=== PATIENT | female | born 1970 | race Caucasian/White ===

== ENCOUNTER 2016-10-19 15:22 | Inpatient (IN) | payer MEDICARE, MEDICAID ==
[2016-10-19 15:59] LABS: Urine Bilirubin Negative (Negative); Urine Glucose Negative (Negative); Urine Nitrite Negative (Negative)
[2016-10-19 16:26] LABS: Benzodiazepine Urine Screen None Detected (None Detect)
[2016-10-19 16:30] LABS: Hematocrit 38 % (35-47); Hemoglobin 12.7 g/dl (12.0-16.0); Mean Corpuscular HGB Conc 34 g/dl (31-36); Mean Corpuscular Hemoglobin 28 pg (27-31); Mean Corpuscular Volume 84 fL (80-97); Mean Platelet Volume 8 um3 (7.4-10.4); Red Blood Count 4.51 10^6/ul (4.0-5.4); Red Cell Distribution Width 15 % (10.5-15); White Blood Count 9.1 10^3/ul (3.5-10.8)
[2016-10-19 16:49] LABS: ALT 27 U/L (7-52); AST 33 U/L (13-39); Albumin 3.6 g/dL (3.2-5.2); Alkaline Phosphatase 72 U/L (34-104); Anion Gap 4 mmol/L (2-11); BUN/Creatinine Ratio 16.4 (8-20); Blood Urea Nitrogen 10 mg/dL (6-24); CO2 Carbon Dioxide 24 mmol/L (22-32); Calcium 8.5 mg/dL (8.6-10.3); Chloride 109 mmol/L (101-111); EGFR Non-African American 106.5 (>60); Globulin 2.7 g/dL (2-4); Glucose 212 mg/dL (70-100); Potassium 3.5 mmol/L (3.5-5.0); Sodium 137 mmol/L (133-145); Total Protein 6.3 g/dL (6.4-8.9)
[2016-10-19 17:05] LABS: Acetaminophen < 15 mcg/mL; Alcohol < 10 mg/dL (<10); Salicylate < 2.50 mg/dL (<30)
[2016-10-19 17:15] LABS: TSH (Thyroid Stimulating Horm) 0.04 mcIU/mL (0.34-5.60)
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
[2016-10-20] MEDS: traZODone TAB* 100 MG PO SCH ×2 (03:48→21:33)
--- NOTE | 2016-10-20 08:25 | PN ---
Progress Note - Progress Note Note: Psychiatry Discussed case with Grocery Store Associate (Mdehat Escalante) Patient requires admission to first available psychiatric bed. Requested medication reconciliation be done to facilitate a decision on continuing psychiatric meds.
[2016-10-20] MEDS ORDERED: LORazepam TAB(*) 1 MG PO ONE (10:57)
[2016-10-20] MEDS ORDERED: hydrOXYzine HCL TAB* 25 MG PO PRN (10:57)
[2016-10-20] MEDS ORDERED: diPHENhydraMINE PO* 50 MG PO PRN (12:59)
[2016-10-20] MEDS ORDERED: Mouth Piece, Nicotine* 1 EACH CARTRIDGE INH ONE (14:00)
[2016-10-20] MEDS: buPROPion SR TAB.SR* 150 MG PO SCH (16:48)
[2016-10-20] MEDS: Nicotine Inhaler* 10 MG AMP INH PRN (16:49)
[2016-10-20] MEDS: cloNIDine TAB* 0.1 MG PO SCH (21:33)
--- NOTE | 2016-10-21 07:19 | CONSULT ---
Consult Consult: Ms. Trujillo presented to the ED with suicidal thoughts and depression and was medically cleared on a prior shift. She underwent MHE and they felt that she needed hospitalizaton for her safety. I agreed and signed 939 forms. She was admitted in stable condition with a diagnosis of depression with SI.
[2016-10-21] MEDS: cloNIDine TAB* 0.1 MG PO SCH (08:38)
[2016-10-21] MEDS: buPROPion SR TAB.SR* 150 MG PO SCH (08:38)
[2016-10-21] MEDS ORDERED: Sertraline* 100 MG TAB PO SCH (09:00)
[2016-10-21 09:17] VITALS: BP 95/49
[2016-10-21] MEDS: Nicotine Inhaler* 10 MG AMP INH PRN (10:06)
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
--- NOTE | 2016-10-22 02:24 | DS ---
DISCHARGE SUMMARY: DATE OF ADMISSION: 10/20/16 DATE OF DISCHARGE: 10/21/16 DISCHARGE DIAGNOSES: [place] I: Opioid-induced mood disorder, opioid use disorder, cocaine use disorder , cannabis use disorder. [place] II: Deferred. [place] III: Chronic hepatitis C, gastroesophageal reflux disease, bilateral knee osteoarthritis. [place] IV: Severe primary support stressors. [place] V: At the time of admission was 50 and at time of discharge is 60. CONDITION AT THE TIME OF DISCHARGE: Stable. The patient is steadfastly denying any signs of suicidal behavior. Her affect is significantly brighter than I have previously seen it and she is future oriented indicating she would like to be with her family this weekend to be part of her sister's wedding. The patient is agreeable with not only outpatient substance abuse, but also outpatient mental health treatment in the community and followup appointments have been made. The major acute stressor leading to this hospitalization was renewed substance abuse. She is now detoxified from substances and shows no sign of current withdrawal symptoms. She is acknowledging this as an active problem but stating appropriately that she wants to become abstinent again. She is choosing to follow up with the alcohol and drug treatment program and appropriately will be seeking Suboxone maintenance therapy following this experience. We had spoken with her providers at [facility] and they are very much willing to work with her in the future. DISCHARGE INSTRUCTIONS: A. Medications: She is currently takin. Trazodone 300 mg p.o. nightly. 2. Hydroxyzine 50 mg p.o. 4 times a day p.r.n. for anxiety. 3. Benadryl 50 mg as needed at bedtime for insomnia. 4. Bupropion SR 150 mg p.o. daily. 5. Clonidine 0.1 mg p.o. b.i.d. 6. Sertraline 100 mg p.o. daily. B. Diet is regular. C: Activities: As tolerated. The patient is a smoker and she is strongly encouraged to abstain from tobacco usage in the future. However, she is declining use of nicotine replacement products in the outpatient setting indicating her desire at this time to continue smoking cigarettes. HOSPITAL COURSE: Part A: Reason for admission: The patient is a 46-year-old single, white homosexual female with a history of polysubstance abuse as well as PTSD and affective problems who was brought to the emergency room by a friend of hers following an incident where she overdosed on an unknown amount of hydroxyzine. The patient's friend, a woman named Lore, indicated that the patient had taken up to 30 and had endorsed suicidal ideation to her over the phone. The patient steadfastly denies this indicating that she only took approximately 6 of these tablets and she states that her reasoning was that she had a headache and just wanted to go to sleep. She is denying all neurovegetative symptoms of depression at the time of admission and she is denying any thoughts of hurting herself. She is future oriented wanting to attend wedding of her sister this weekend. Part B: Psychiatric treatment rendered: The patient was admitted to the adult behavioral health unit where she was placed on q.30-minute checks for her own safety. We did continue all of her outpatient medications as currently prescribed. The patient was calm and cooperative throughout her stay on the behavioral science unit. I noted almost immediately that her affect appeared to be bright and she was significantly less depressed than she had been during her previous hospitalization here in July 2016. She is telling us that she wants to continue living and would like to continue working on her sobriety. She has formal treatment through the alcohol drug program but wishes to become enrolled in their Suboxone maintenance program. She denies any thoughts of hurting herself or others and is requesting discharge. The patient is domiciled in a section 8 apartment and does have a safe place to go as well as followup arrangements made in the community. We do not feel that she would benefit from further inpatient psychiatric assistance at this time and she is declining any referrals to further inpatient substance abuse rehab. [id number]/[facility] #: [id number] JAYLENE
== END 2016-10-21 15:30 | disposition home or self-care (01) | DRG 897 ==
LOC: ED 15:22 → BSU 10-20 12:58
PROVIDERS: ADMIT Psychiatry & Neurology Psychiatry; ATTEND Psychiatry & Neurology Psychiatry
DX: F11.94 Opioid use, unspecified with opioid-induced mood disorder (principal); B18.2 Chronic viral hepatitis C; F14.90 Cocaine use, unspecified, uncomplicated; F12.90 Cannabis use, unspecified, uncomplicated; K21.9 Gastro-esophageal reflux disease without esophagitis; M17.0 Bilateral primary osteoarthritis of knee; F43.10 Post-traumatic stress disorder, unspecified; Z79.899 Other long term (current) drug therapy; Z88.8 Allergy status to other drugs, medicaments and biological substances; Z81.8 Family history of other mental and behavioral disorders
CPT/HCPCS: 36415; 80053; 80307; 80320; 80329; 81003; 84443; 85025; 93005; 99238; A9270-GY; G0480

== ENCOUNTER 2017-04-03 12:37 | Emergency (ER) | payer MEDICARE, MEDICAID ==
[2017-04-03] MEDS ORDERED: NS 0.9% 1000 ML* 1,000 ML IV ONE (16:11)
[2017-04-03] MEDS ORDERED: methylPREDNISolone 125 MG* 2 ML VIAL IV ONE (16:12)
[2017-04-03] MEDS ORDERED: diPHENhydraMINE IV* 50 MG/ML 1 ml VIAL (BENADRYL) IV ONE (16:12)
[2017-04-03] MEDS ORDERED: Famotidine IV* 10 MG/ML 2 ML (20 mg) IV SLOW PU ONE (16:12)
[2017-04-03 17:31] LABS: Hematocrit 41 % (35-47); Hemoglobin 13.7 g/dl (12.0-16.0); Mean Corpuscular HGB Conc 34 g/dl (31-36); Mean Corpuscular Hemoglobin 29 pg (27-31); Mean Corpuscular Volume 86 fL (80-97); Mean Platelet Volume 9 um3 (7.4-10.4); Red Blood Count 4.73 10^6/ul (4.0-5.4); Red Cell Distribution Width 15 % (10.5-15); White Blood Count 8.5 10^3/ul (3.5-10.8)
[2017-04-03 17:44] LABS: Mono Internal Control QC Line Present
[2017-04-03 17:45] LABS: Albumin 3.7 g/dL (3.2-5.2); BUN/Creatinine Ratio 15.3 (8-20); C Reactive Protein 85.82 mg/L (< 5.00); Calcium 8.6 mg/dL (8.6-10.3); EGFR African American 113.2 (>60); Globulin 2.7 g/dL (2-4); Manual Entry Verification MER0007; Potassium 3.4 mmol/L (3.5-5.0); Total Bilirubin 0.6 mg/dL (0.2-1.0); Total Protein 6.4 g/dL (6.4-8.9)
[2017-04-03 17:53] VITALS: BP 102/57
--- NOTE | 2017-04-03 20:15 | ED ---
I, Oh,Soohyun, scribed for Scott Terry MD on 04/03/17 at 1610 . Skin Complaint - HPI Summary HPI Summary: This 46 y/o female presents to ED for intermittent diffuse hives since a week ago. Cortisone only alleviates hives "for like 5 minutes". Positive fever with reported temperature of 101 F, fatigue, n/v, MADSEN, and general myalgia/ arthralgia. She has been outdoor, but did not notice tick bite. Pt recently started Latuda about a month ago. PMHx includes ADHD, severe anxiety/depression , PTSD, and Hep C. No EtOH consumption. Occasional smoker. - History of Current Complaint Chief Complaint: EDGeneral Time Seen by Provider: 04/03/17 15:41 Stated Complaint: HIVES,FEVER Hx Obtained From: Patient, Medical Records Onset/Duration: Started Weeks Ago, Atraumatic, Still Present Timing: Intermittent Pain Intensity: 7 Pain Scale Used: 0-10 Numeric Skin Location: Diffuse Character: Hives Aggravating Symptom(s): Nothing Alleviating Symptom(s): OTC Creams/Salves - cortisone Associated Signs & Symptoms: Nausea, Vomiting, Fever - Additional Pertinent History Primary Care Physician: [id number] - Allergy/Home Medications Allergies/Adverse Reactions: Allergies Allergy/AdvReac Type Severity Reaction Status Date / Time Omeprazole [From Prilosec] Allergy URINARY Verified 10/20/16 17:15 OBSTRUCTION Tramadol AdvReac Intermediate See Comment Verified 10/20/16 17:15 PMH/Surg Hx/FS Hx/Imm Hx Endocrine/Hematology History: Denies: Hx Diabetes Cardiovascular History: Denies: Hx Hypertension, Hx Pacemaker/ICD Respiratory History: Reports: Hx Asthma, Hx Chronic Bronchitis Musculoskeletal History: Reports: Hx Arthritis, Other Musculoskeletal History - Chronic pain in left foot due to george bite years ago that has caused limp Sensory History: Denies: Hx Hearing Aid Neurological History: Reports: Other Neuro Impairments/Disorders - negative hx of withdrawl or seizure Psychiatric History: Reports: Hx Anxiety, Hx Attention Deficit Hyperactivity Disorder, Hx Depression, Hx Post Traumatic Stress Disorder, Hx Inpatient Treatment, Hx Community Mental Health Tx, Hx Suicide Attempt, Hx Substance Abuse Denies: Hx Eating Disorder, Hx Panic Disorder, Hx Schizophrenia, Hx Bipolar Disorder, Hx of Violent Episodes Against Others, Other Psychiatric Issues/ Disorders Infectious Disease History: No Infectious Disease History: Reports: Hx Hepatitis - Hepatitis C Denies: Traveled Outside the [place] in Last 30 Days - Family History Known Family History: Negative: Cardiac Disease, Diabetes - Social History Alcohol Use: Daily Alcohol Amount: 6-12 beers a day Hx Substance Use: Yes - reports polysubstance self-medication Substance Use Type: Reports: Cocaine, Excessive Caffeine, Marijuana, Synthetic Drugs, Prescribed Substance Use Comment - Amount & Last Used: Pt states, "I use what ever I can get my hands on" Hx Tobacco Use: Yes Smoking Status (MU): Current Every Day Smoker Type: Cigarettes Amount Used/How Often: half a pack a day Have You Smoked in the Last Year: Yes Review of Systems Positive: Fever Positive: Vomiting, Nausea Positive: Arthralgia, Myalgia Positive: Other - diffuse hives Positive: Headache All Other Systems Reviewed And Are Negative: Yes Physical Exam - Summary Physical Exam Summary: The patient is well-nourished in no acute distress and in no acute pain. The skin is warm and dry and skin color reflects adequate perfusion. Diffuse hives upper, lower extremities, face, trunk. HEENT: The head is normocephalic and atraumatic. The pupils are equal and reactive. The conjunctivae are clear and without drainage. Nares are patent and without drainage. Mouth reveals moist mucous membranes and the throat is without erythema and exudate. The external ears are intact. The ear canals are patent and without drainage. The tympanic membranes are intact. Negative swelling or erythema on throat. Neck is supple with full range of motion and non-tender.No nuchal rigitdity Respiratory: Chest is non-tender. Rhonchi and mild wheezing. Lungs are clear to auscultation and breath sounds are symmetrical and equal. Cardiovascular: Hear is regular rate and rhythm. There is no murmur or rub auscultated. There is no peripheral edema and pulses are symmetrical and equal. Abdomen: The abdomen is soft and non-tender. There are normal bowel sounds heard in all four quadrants and there is no organomegaly palpated. Musculoskeletal: There is no back pain noted. Extremities are non-tender with full range of motion. There is no peripheral edema or calf tenderness elicited. No swollen joints. Psychiatric: The patient has an appropriate affect and does not exhibit any anxiety or depression. Triage Information Reviewed: Yes Vital Signs On Initial Exam: Initial Vitals Temp Pulse Resp BP Pulse Ox 97.8 F 96 16 97/62 96 04/03/17 12:40 04/03/17 12:40 04/03/17 12:40 04/03/17 12:40 04/03/17 12:40 Vital Signs Reviewed: Yes - Sahil Coma Scale Coma Scale Total: 15 Diagnostics - Vital Signs Vital Signs Temp Pulse Resp BP Pulse Ox 04/03/17 14:29 100.1 F 70 16 90/54 98 04/03/17 12:40 97.8 F 96 16 97/62 96 - Laboratory Lab Results: Lab Results 04/03/17 04/03/17 04/03/17 Range/Units 17:08 17:08 17:08 WBC 8.5 (3.5-10.8) 10^3/ul RBC 4.73 (4.0-5.4) 10^6/ul Hgb 13.7 (12.0-16.0) g/dl Hct 41 (35-47) % MCV 86 (80-97) fL MCH 29 (27-31) pg MCHC 34 (31-36) g/dl RDW 15 (10.5-15) % Plt Count 181 (150-450) 10^3/ul MPV 9 (7.4-10.4) um3 Neut % (Auto) 67.5 (38-83) % Lymph % (Auto) 21.5 L (25-47) % [place] % (Auto) 10.0 H (1-9) % Eos % (Auto) 0.8 (0-6) % Baso % (Auto) 0.2 (0-2) % Absolute Neuts (auto) 5.8 (1.5-7.7) 10^3/ul Absolute Lymphs (auto) 1.8 (1.0-4.8) 10^3/ul Absolute Monos (auto) 0.9 H (0-0.8) 10^3/ul Absolute Eos (auto) 0.1 (0-0.6) 10^3/ul Absolute Basos (auto) 0 (0-0.2) 10^3/ul Absolute Nucleated RBC 0.02 10^3/ul Nucleated RBC % 0.3 INR (Anticoag Therapy) 1.03 (0.89-1.11) APTT 24.2 L (26.0-36.3) seconds Sodium 135 (133-145) mmol/L Potassium 3.4 L (3.5-5.0) mmol/L Chloride 103 (101-111) mmol/L Carbon Dioxide 23 (22-32) mmol/L Anion Gap 9 (2-11) mmol/L BUN 11 (6-24) mg/dL Creatinine 0.72 (0.51-0.95) mg/dL Est GFR ( Amer) 113.2 (>60) Est GFR (Non-Af Amer) 88.0 (>60) BUN/Creatinine Ratio 15.3 (8-20) Glucose 91 (70-100) mg/dL Lactic Acid (0.5-2.0) mmol/L Calcium 8.6 (8.6-10.3) mg/dL Total Bilirubin 0.60 (0.2-1.0) mg/dL AST 17 (13-39) U/L ALT 9 (7-52) U/L Alkaline Phosphatase 61 (34-104) U/L C-Reactive Protein 85.82 H (< 5.00) mg/L Total Protein 6.4 (6.4-8.9) g/dL Albumin 3.7 (3.2-5.2) g/dL Globulin 2.7 (2-4) g/dL Albumin/Globulin Ratio 1.4 (1-3) Monoscreen Negative (Negative) 04/03/17 Range/Units 17:08 WBC (3.5-10.8) 10^3/ul RBC (4.0-5.4) 10^6/ul Hgb (12.0-16.0) g/dl Hct (35-47) % MCV (80-97) fL MCH (27-31) pg MCHC (31-36) g/dl RDW (10.5-15) % Plt Count (150-450) 10^3/ul MPV (7.4-10.4) um3 Neut % (Auto) (38-83) % Lymph % (Auto) (25-47) % [place] % (Auto) (1-9) % Eos % (Auto) (0-6) % Baso % (Auto) (0-2) % Absolute Neuts (auto) (1.5-7.7) 10^3/ul Absolute Lymphs (auto) (1.0-4.8) 10^3/ul Absolute Monos (auto) (0-0.8) 10^3/ul Absolute Eos (auto) (0-0.6) 10^3/ul Absolute Basos (auto) (0-0.2) 10^3/ul Absolute Nucleated RBC 10^3/ul Nucleated RBC % INR (Anticoag Therapy) (0.89-1.11) APTT (26.0-36.3) seconds Sodium (133-145) mmol/L Potassium (3.5-5.0) mmol/L Chloride (101-111) mmol/L Carbon Dioxide (22-32) mmol/L Anion Gap (2-11) mmol/L BUN (6-24) mg/dL Creatinine (0.51-0.95) mg/dL Est GFR ( Amer) (>60) Est GFR (Non-Af Amer) (>60) BUN/Creatinine Ratio (8-20) Glucose (70-100) mg/dL Lactic Acid 0.6 (0.5-2.0) mmol/L Calcium (8.6-10.3) mg/dL Total Bilirubin (0.2-1.0) mg/dL AST (13-39) U/L ALT (7-52) U/L Alkaline Phosphatase (34-104) U/L C-Reactive Protein (< 5.00) mg/L Total Protein (6.4-8.9) g/dL Albumin (3.2-5.2) g/dL Globulin (2-4) g/dL Albumin/Globulin Ratio (1-3) Monoscreen (Negative) Result Diagrams: 04/03/17 17:08 04/03/17 17:08 Lab Statement: Any lab studies that have been ordered have been reviewed, and results considered in the medical decision making process. Re-Evaluation - Re-Evaluation First Eval Re-Evaluation Time: 18:49 Comment: in room to share lab results with pt. Hard copies of labwork is provided to patient. Plan of care involving discharge is discussed, and pt is agreeable at this moment. Course/Dx - Course Assessment/Plan: This 46 y/o female presents to ED for intermittent hives since a week ago. Pt states that she attempted to control it with cortisone without much success. Positive MADSEN, arthralgia, myalgia, and n/v. Pt states that she was outdoor, but did not notice any tick bite. Blood work is wnl except of elevated CRP of 85.82. Monoscreen is negative. Pt was given benadryl, methylprednisolone , and pepcid in ED, and . Pt is discharged with outpatient f/u with her primary care provider to check on her lyme titer. - Differential Diagnoses - Skin Complaint Differential Diagnoses: Allergic Reaction, Contact Dermatitis, Medication; Adverse Reaction, Tick Born Illness, Urticaria, Other - lyme's disease, dehydration,anxiety - Diagnoses Provider Diagnoses: Urticaria, Myalgia, Arthralgia, Anxiety Discharge - Discharge Plan Condition: Stable Disposition: HOME Prescriptions: Famotidine TAB 40 MG(NF) [Pepcid TAB 40 MG(NF)] 40 mg PO DAILY #30 tab hydrOXYzine HCL TAB* [Atarax 25 MG TAB*] 25 mg PO QID PRN #30 tab PRN Reason: itching predniSONE TAB* [Deltasone TAB*] 60 mg PO DAILY #15 tab Patient Education Materials: Urticaria (ED), Famotidine (By mouth), Hydroxyzine (By mouth), Prednisone (By mouth) Referrals: Jeovany Huang MD [Primary Care Provider] - 2 Days The documentation as recorded by the Marcos lock Soohyun accurately reflects the service I personally performed and the decisions made by me, Scott Terry MD.
== END 2017-04-03 19:01 | disposition home or self-care (01) ==
LOC: ED 12:37
DX: R11.2 Nausea with vomiting, unspecified (principal); R50.9 Fever, unspecified; F17.210 Nicotine dependence, cigarettes, uncomplicated; L50.9 Urticaria, unspecified
CPT/HCPCS: 36415; 80053; 83605; 85025; 85610; 85730; 86140; 86308; 86618; 96374; 99283; J1200; J2930

== ENCOUNTER 2017-04-23 22:10 | Inpatient (IN) | payer MEDICARE, MEDICAID ==
[2017-04-23] MEDS ORDERED: LORazepam TAB(*) 1 MG PO ONE (22:58)
--- NOTE | 2017-04-23 23:29 | ED ---
Psychiatric Complaint - HPI Summary HPI Summary: Pt here w/ feeling "hopeless" since recent heroine use. Reports using 2 grams per day. Typically injects into veins of AC fossas however this has become more difficult d/t scarring. Does not want to inject into hands as it's too painful. Denies injecting in other locations so she snorts the remainder to get her "fix ". Admits to being in/out rehab multiple times, every time with hopes of recovering but eventually relapses. When asked if she's having hearing/seeing things that may not be present, she says "no, I'm not hallucinating" but also reports things are "flying around the room" and uses her hand to wave something away overhead (nothing is there). When asked if she's taken any other drugs today, she admits she drank a Labatt Blue tonight but no other medications or drugs were ingested. She does admit to smoking cigarettes. Asked if she wanted nicotine replacement and she states "I've smoked enough lately". When asked about health issues, states she has taken something for Hep C but doesn't believe she made her f/u appointment as directed. When asked if she lives with someone, states she is in section 8 housing and had a guest stay recently for 3 days which triggered her to become evicted. Reports she has a sober support system. She complains of toe pain - states "I feel my pulse in my toes". Admits to george bite 10 years ago with pain since. Tells me she's not slept in days and just wants to sleep. Hungry but also nauseous - ate a sandwich and reports it's staying down well. - History Of Current Complaint Chief Complaint: EDMentalHealth Time Seen by Provider: 04/23/17 22:13 Hx Obtained From: Patient - Allergies/Home Medications Allergies/Adverse Reactions: Allergies Allergy/AdvReac Type Severity Reaction Status Date / Time Omeprazole [From Prilosec] Allergy URINARY Verified 10/20/16 17:15 OBSTRUCTION Tramadol AdvReac Intermediate See Comment Verified 10/20/16 17:15 PMH/Surg Hx/FS Hx/Imm Hx Previously Healthy: Yes Endocrine/Hematology History: Reports: Hx Thyroid Disease - h/o thyrotoxicosis Denies: Hx Diabetes Cardiovascular History: Denies: Hx Hypertension, Hx Pacemaker/ICD Respiratory History: Reports: Hx Asthma, Hx Chronic Bronchitis Musculoskeletal History: Reports: Hx Arthritis, Other Musculoskeletal History - Chronic pain in left foot due to george bite years ago that has caused limp Sensory History: Denies: Hx Hearing Aid Neurological History: Reports: Other Neuro Impairments/Disorders - negative hx of withdrawl or seizure Psychiatric History: Reports: Hx Anxiety, Hx Attention Deficit Hyperactivity Disorder, Hx Depression, Hx Post Traumatic Stress Disorder, Hx Inpatient Treatment, Hx Community Mental Health Tx, Hx Suicide Attempt, Hx Substance Abuse - heroine, cocaine Denies: Hx Eating Disorder, Hx Panic Disorder, Hx Schizophrenia, Hx Bipolar Disorder, Hx of Violent Episodes Against Others, Other Psychiatric Issues/ Disorders Infectious Disease History: No Infectious Disease History: Reports: Hx Hepatitis - Hepatitis C Denies: Traveled Outside the [place] in Last 30 Days - Family History Known Family History: Positive: Unknown Negative: Cardiac Disease, Diabetes - Social History Lives: Alone Alcohol Use: Daily Alcohol Amount: 6-12 beers a day Hx Substance Use: Yes - reports polysubstance self-medication Substance Use Type: Reports: Cocaine, Excessive Caffeine, Marijuana, Synthetic Drugs, Prescribed Substance Use Comment - Amount & Last Used: Pt states, "I use what ever I can get my hands on" Hx Tobacco Use: Yes Smoking Status (MU): Current Every Day Smoker Type: Cigarettes Amount Used/How Often: half a pack a day Have You Smoked in the Last Year: Yes Review of Systems Positive: Fatigue - see HPI Eyes: Other - see HPI ENT: Negative Cardiovascular: Negative Respiratory: Negative Positive: Nausea. Negative: Abdominal Pain, Vomiting, Diarrhea Positive: no symptoms reported Musculoskeletal: Negative Skin: Negative Neurological: Other - neuropathy in toes as in HPI Psychological: Other - see HPI All Other Systems Reviewed And Are Negative: Yes Physical Exam Triage Information Reviewed: Yes Vital Signs On Initial Exam: Initial Vitals Temp Pulse Resp BP Pulse Ox 97.5 F 92 18 96/75 97 04/23/17 22:14 04/23/17 22:14 04/23/17 22:14 04/23/17 22:14 04/23/17 22:14 Vital Signs Reviewed: Yes Appearance: Positive: Ill-Appearing - pt is fidgety w/ sporadic movements while sitting in bed - randomly smacks the mattress while speaking, Pain Distress - reports he toes hurt throughout evaluation Skin: Positive: Warm, Dry - no rash, no erythema/fever at injection sites; toes of B/L feet w/ inflammation - no janett edema, no streaking, no fluctuane, no drainage - well perfused Eyes: Positive: Conjunctiva Inflammed - poor eye contact. Negative: Discharge ENT: Positive: Hearing grossly normal Neck: Positive: Supple, Nontender Respiratory/Lung Sounds: Positive: Clear to Auscultation, Breath Sounds Present Cardiovascular: Positive: Normal, RRR, Pulses are Symmetrical in both Upper and Lower Extremities Abdomen Description: Positive: Nontender, No Organomegaly, Soft Bowel Sounds: Positive: Present Musculoskeletal: Positive: Normal, Strength/ROM Intact Neurological: Positive: Sensory/Motor Intact - although pt jerks her body at times, Alert, Oriented to Person Place, Time, CN Intact II-III Psychiatric: Positive: Anxious - but able to converse to some degree and answer questions - swiping at the air at times as though something were overhead; when asked about hurting herself, she deflects with other conversation but does state she feels hopeless Diagnostics - Vital Signs Vital Signs Temp Pulse Resp BP Pulse Ox 04/23/17 22:14 97.5 F 92 18 96/75 97 - Laboratory Result Diagrams: 04/23/17 23:23 04/23/17 23:23 Lab Statement: Any lab studies that have been ordered have been reviewed, and results considered in the medical decision making process. Course/Dx - Course Course Of Treatment: Pt presents to ED w/ use of heroine (and cocaine per nursing report). This is confirmed as well as benzo and cannabis on urine drug screen. Pt reports she's feeling "hopeless", has a h/o substance abuse w/ relapse and recently evicted from residence. She appears to be intoxicated at the moment and/or in a psychotic episode. She rests after taking ativan 1mg. Labs reveal hypokalemia with K at 3. TSH is low but is higher than past levels and her HR is WNL - she is w/o a. fib upon auscultation. H/o mood d/o induced by substances. Discussed w/ Dr. Altamirano and license issuer Truman who has been to evaluate pt. Signed out to Dr. Altamirano at 2:30am. - Differential Dx/Clinical Impression Provider Diagnosis: Suicidal ideations, Cocaine abuse, Benzodiazepine abuse, Heroin abuse Discharge - Discharge Plan Condition: Stable Disposition: OTHER Discharge Disposition Comment: Signed out to Dr. Altamirano at 2:30am
[2017-04-23 23:33] LABS: Hematocrit 41 % (35-47); Hemoglobin 14.1 g/dl (12.0-16.0); Mean Corpuscular HGB Conc 35 g/dl (31-36); Mean Corpuscular Hemoglobin 29 pg (27-31); Mean Corpuscular Volume 82 fL (80-97); Mean Platelet Volume 9 um3 (7.4-10.4); Red Blood Count 4.93 10^6/ul (4.0-5.4); Red Cell Distribution Width 14 % (10.5-15); White Blood Count 8.3 10^3/ul (3.5-10.8)
[2017-04-23 23:49] LABS: ALT 11 U/L (7-52); AST 18 U/L (13-39); Albumin 3.9 g/dL (3.2-5.2); Alkaline Phosphatase 70 U/L (34-104); Anion Gap 7 mmol/L (2-11); BUN/Creatinine Ratio 9.8 (8-20); Blood Urea Nitrogen 8 mg/dL (6-24); CO2 Carbon Dioxide 28 mmol/L (22-32); Calcium 8.8 mg/dL (8.6-10.3); Chloride 103 mmol/L (101-111); EGFR African American 97.4 (>60); EGFR Non-African American 75.7 (>60); Globulin 2.9 g/dL (2-4); Glucose 117 mg/dL (70-100); Sodium 138 mmol/L (133-145); Total Protein 6.8 g/dL (6.4-8.9)
[2017-04-23 23:52] LABS: Acetaminophen < 15 mcg/mL; Alcohol < 10 mg/dL (<10); Salicylate < 2.50 mg/dL (<30)
[2017-04-24 00:03] LABS: TSH (Thyroid Stimulating Horm) 0.24 mcIU/mL (0.34-5.60)
[2017-04-24 02:07] LABS: Urine Bacteria Absent (Absent); Urine Bilirubin Negative (Negative); Urine Glucose Negative (Negative); Urine Nitrite Negative (Negative)
[2017-04-24 02:12] LABS: Benzodiazepine Urine Screen Presumptive Positive (None Detect)
[2017-04-24] MEDS ORDERED: Potassium Chlor TAB* 20 MEQ TAB.ER PO ONE (02:25)
[2017-04-24] MEDS ORDERED: hydrOXYzine HCL TAB* 25 MG PO PRN (07:24)
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
[2017-04-24] MEDS: BuPROPion XL* 150 MG TAB.XL PO SCH (14:31)
[2017-04-24] MEDS: cloNIDine TAB* 0.1 MG PO SCH ×2 (14:31→21:28)
[2017-04-24] MEDS: Meloxicam(NF) 15 MG TAB PO SCH (14:32)
[2017-04-24] MEDS: Famotidine TAB* 20 MG PO SCH (14:32)
[2017-04-24] MEDS: Sertraline* 100 MG TAB PO SCH (14:32)
[2017-04-24] MEDS: predniSONE TAB* 20 MG PO SCH (14:32)
[2017-04-24] MEDS ORDERED: Haloperidol TAB* 5 MG PO ONE (14:57)
[2017-04-24] MEDS ORDERED: LORazepam TAB(*) 1 MG PO ONE (14:57)
[2017-04-24] MEDS ORDERED: diPHENhydraMINE PO* 50 MG PO ONE (14:58)
[2017-04-24] MEDS ORDERED: Methocarbamol TAB* 500 MG PO ONE (15:22)
[2017-04-24] MEDS ORDERED: Ondansetron ODT TAB* 4 MG PO PRN (15:23)
[2017-04-24] MEDS ORDERED: Loperamide CAP* 2 MG PO ONE (15:25)
[2017-04-24] MEDS ORDERED: Ibuprofen TAB* 600 MG PO ONE (15:25)
[2017-04-24] MEDS ORDERED: Loperamide CAP* 2 MG PO PRN (15:26)
[2017-04-24] MEDS: traZODone TAB* 100 MG PO SCH (21:28)
[2017-04-25] MEDS: Ibuprofen TAB* 600 MG PO PRN ×2 (08:09→15:51)
[2017-04-25] MEDS: Meloxicam(NF) 15 MG TAB PO SCH (08:11)
[2017-04-25] MEDS: Sertraline* 100 MG TAB PO SCH (08:11)
[2017-04-25] MEDS: BuPROPion XL* 150 MG TAB.XL PO SCH (08:12)
[2017-04-25] MEDS: predniSONE TAB* 20 MG PO SCH (08:13)
[2017-04-25] MEDS: cloNIDine TAB* 0.1 MG PO SCH ×2 (08:13→20:10)
[2017-04-25] MEDS: Famotidine TAB* 20 MG PO SCH (08:13)
--- NOTE | 2017-04-25 14:31 | PN ---
Subjective - Subjective Service Type: [id number] Hosp care 15 min low complexity Subjective: Patient is very somatic from opioid withdrawal and upset at herself for relapsing. She indicates that she is losing her [address] apartment due to having an unallowed roommate. She declines the offer of inpatient rehab. Patient remains suicidal, stating "I just need to stay here a couple days until these thoughts go away." Objective - Appearance Appearance: Well Developed/Nourished Dysmorphic Features: No Hygiene: Normal Grooming: Well Kept - Behavior Psychomotor Activities: Abnormal-Decreased Exhibits Abnormal Movement: No - Attitude and Relatedness Attitude and Relatedness: Cooperative Eye Contact: Fair - Speech Quality: Unpressured Latencies: Normal Quantity: Appropriate - Mood Patient's Decription of Mood: "Terrible" - Affect Observed Affect: Constricted Affect Consistent with: Dysphoria - Thought Process Patient's Thought Process: Coherent Thought Content: Yes Suicidal Planning, No Passive Wish, No Homicidal Ideation, No Paranoid Ideation - Sensorium Experiencing Hallucinations: No, Sensorium is Clear Type of Hallucinations: Visual: No, Auditory: No, Command: No - Level of Consciousness Level of Consciousness: Alert Orientation: Yes Intact, Yes Orientated to Time, Yes Orientated to Place, Yes Orientated to Person - Impulse Control Impulse Control: Tenuous - Insight and Judgement Insight and Judgement: Fair - Group Participation Particating in Group Activities: No - Medication Management Medication Management Adherence: Yes Assessment - Assessment Merits Inpatient Hospitalization: For Immediate Safety, For Stabilization Inpatient 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 single, homosexual, white female with a well-established history of polysubstance dependence and affective instability, along with numerous past admissions to the [facility] in the setting of drug abuse and suicidality, who presents with SI. Plan - Plan Treatment Plan: Name: EDD LOVING Birthdate: 1970 [id number] The patient has been taken off sertraline by her primary care provider. We will start prn quetiapine for agitation and mood instability. Reassess tomorrow. Continued Medication Management: Different Medication Medications: Current Medications Bupropion HCl (Wellbutrin Xl *) 450 mg PO DAILY [facility] Last Admin: 04/25/17 08:12 Dose: 450 mg Clonidine HCl (Catapres Tab*) 0.1 mg PO BID [facility] Last Admin: 04/25/17 08:13 Dose: 0.1 mg Famotidine (Pepcid Tab*) 40 mg PO DAILY [facility] Last Admin: 04/25/17 08:13 Dose: 40 mg Ibuprofen (Motrin Tab*) 600 mg PO Q6H PRN PRN Reason: PAIN Last Admin: 04/25/17 08:09 Dose: 600 mg Loperamide HCl (Imodium Cap*) 2 mg PO .SEE DIRECTIONS PRN PRN Reason: DIARRHEA Methocarbamol (Robaxin Tab*) 750 mg PO TID PRN PRN Reason: muscle ache / spasm Nicotine (Nicotine Inhaler*) 10 mg INH Q2H PRN PRN Reason: CRAVING Nicotine Polacrilex (Nicotine Gum*) 2 mg PO Q2H PRN PRN Reason: CRAVING Ondansetron HCl (Zofran Odt Tab*) 4 mg PO Q6H PRN PRN Reason: NAUSEA Prednisone (Deltasone Tab*) 60 mg PO DAILY [facility] Last Admin: 04/25/17 08:13 Dose: 60 mg Quetiapine Fumarate (Seroquel Tab*) 100 mg PO Q6H PRN PRN Reason: AGITATION/ANXIETY/INSOMNIA Sertraline HCl (Zoloft*) 100 mg PO DAILY [facility] Last Admin: 04/25/17 08:11 Dose: 100 mg Trazodone HCl (Desyrel Tab*) 300 mg PO BEDTIME [facility] Last Admin: 04/24/17 21:28 Dose: Not Given - Discharge Plan Discharge Plan: Drug/Alcohol Rehab
[2017-04-25] MEDS: Nicotine GUM* 2 MG PO PRN ×2 (15:51→20:09)
[2017-04-25] MEDS: Methocarbamol TAB* 500 MG PO PRN (15:51)
[2017-04-25] MEDS: Nicotine Inhaler* 10 MG AMP INH PRN (15:51)
[2017-04-25] MEDS ORDERED: Mouth Piece, Nicotine* 1 EACH CARTRIDGE ONE (15:53)
[2017-04-25] MEDS: QUEtiapine TAB* 100 MG PO PRN (19:40)
[2017-04-25] MEDS: traZODone TAB* 100 MG PO SCH (20:10)
[2017-04-26 09:06] LABS: HDL Cholesterol 36.5 mg/dL
[2017-04-26] MEDS: predniSONE TAB* 20 MG PO SCH (09:35)
[2017-04-26] MEDS: cloNIDine TAB* 0.1 MG PO SCH ×2 (09:35→20:46)
[2017-04-26] MEDS: Famotidine TAB* 20 MG PO SCH (09:35)
[2017-04-26] MEDS: BuPROPion XL* 150 MG TAB.XL PO SCH (09:35)
[2017-04-26] MEDS: Sertraline* 100 MG TAB PO SCH (09:37)
--- NOTE | 2017-04-26 13:46 | PN ---
Subjective - Subjective Service Type: [id number] Hosp care 15 min low complexity Subjective: The patient remains somatic and in bed, suffering from heroin withdrawal. She states that sertraline is ineffective and she requests a trial of lurasidone, which she reports taking as prescribed by Dr. Teixeira at [facility]. The patient became upset at a female peer yesterday and flung her door open in anger, resulting in the door becoming unhinged. She reports continued suicidal ideation. Objective - Appearance Appearance: Well Developed/Nourished Dysmorphic Features: No Hygiene: Normal Grooming: Disheveled - Behavior Psychomotor Activities: Normal Exhibits Abnormal Movement: No - Attitude and Relatedness Attitude and Relatedness: Withdrawn Eye Contact: Poor - Speech Quality: Unpressured Latencies: Normal Quantity: Appropriate - Mood Patient's Decription of Mood: "Terrible" - Affect Observed Affect: Constricted Affect Consistent with: Dysphoria - Thought Process Patient's Thought Process: Coherent Thought Content: Yes Suicidal Planning, No Passive Wish, No Homicidal Ideation, No Paranoid Ideation - Sensorium Experiencing Hallucinations: No, Sensorium is Clear Type of Hallucinations: Visual: No, Auditory: No, Command: No - Level of Consciousness Level of Consciousness: Alert Orientation: Yes Intact, Yes Orientated to Time, Yes Orientated to Place, Yes Orientated to Person - Impulse Control Impulse Control: Poor - Insight and Judgement Insight and Judgement: Impaired - Group Participation Particating in Group Activities: No - Medication Management Medication Management Adherence: Yes Assessment - Assessment Merits Inpatient Hospitalization: For Immediate Safety, For Stabilization Inpatient 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 single, homosexual, white female with a well-established history of polysubstance dependence and affective instability, along with numerous past admissions to the [facility] in the setting of drug abuse and suicidality, who presents with SI. Plan - Plan Treatment Plan: Name: EDD LOVING Birthdate: 1970 [id number] The patient continues to withdraw from opioids and complain of SI. She has been taken off sertraline by her primary care provider. We will start lurasidone 40mg PO qday for agitation and mood instability. Reassess tomorrow. Continued Medication Management: Continue Outpt Medication Medications: Current Medications Bupropion HCl (Wellbutrin Xl *) 450 mg PO DAILY [facility] Last Admin: 04/26/17 09:35 Dose: 450 mg Clonidine HCl (Catapres Tab*) 0.1 mg PO BID [facility] Last Admin: 04/26/17 09:35 Dose: 0.1 mg Famotidine (Pepcid Tab*) 40 mg PO DAILY [facility] Last Admin: 04/26/17 09:35 Dose: 40 mg Ibuprofen (Motrin Tab*) 600 mg PO Q6H PRN PRN Reason: PAIN Last Admin: 04/25/17 15:51 Dose: 600 mg Loperamide HCl (Imodium Cap*) 2 mg PO .SEE DIRECTIONS PRN PRN Reason: DIARRHEA Lurasidone HCl (Latuda (Nf)) 40 mg PO DAILY [facility] Methocarbamol (Robaxin Tab*) 750 mg PO TID PRN PRN Reason: muscle ache / spasm Last Admin: 04/25/17 15:51 Dose: 750 mg Nicotine (Nicotine Inhaler*) 10 mg INH Q2H PRN PRN Reason: CRAVING Last Admin: 04/25/17 15:51 Dose: 10 mg Nicotine Polacrilex (Nicotine Gum*) 2 mg PO Q2H PRN PRN Reason: CRAVING Last Admin: 04/25/17 20:09 Dose: 2 mg Ondansetron HCl (Zofran Odt Tab*) 4 mg PO Q6H PRN PRN Reason: NAUSEA Last Admin: 04/25/17 15:50 Dose: 4 mg Prednisone (Deltasone Tab*) 60 mg PO DAILY [facility] Last Admin: 04/26/17 09:35 Dose: 60 mg Quetiapine Fumarate (Seroquel Tab*) 100 mg PO Q6H PRN PRN Reason: AGITATION/ANXIETY/INSOMNIA Last Admin: 04/25/17 19:40 Dose: 100 mg Trazodone HCl (Desyrel Tab*) 300 mg PO BEDTIME [facility] Last Admin: 04/25/17 20:10 Dose: 300 mg - Discharge Plan Discharge Plan: Inpatient Hospitalization Lab Results - Lab Results Lab Results: 04/26/17 04/26/17 08:20 08:20 Hemoglobin A1c 5.3 Triglycerides 144 Cholesterol 127 LDL Cholesterol 62 HDL Cholesterol 36.5
[2017-04-26] MEDS: Nicotine GUM* 2 MG PO PRN (16:04)
[2017-04-26] MEDS: Ibuprofen TAB* 600 MG PO PRN (16:04)
[2017-04-26] MEDS: QUEtiapine TAB* 100 MG PO PRN (19:11)
[2017-04-26] MEDS: traZODone TAB* 100 MG PO SCH (20:44)
[2017-04-27] MEDS: LURASIDONE 40 MG PO SCH (08:24)
[2017-04-27] MEDS: Famotidine TAB* 20 MG PO SCH (08:24)
[2017-04-27] MEDS: QUEtiapine TAB* 100 MG PO PRN ×2 (08:24→20:13)
[2017-04-27] MEDS: cloNIDine TAB* 0.1 MG PO SCH ×2 (08:24→20:13)
[2017-04-27] MEDS: BuPROPion XL* 150 MG TAB.XL PO SCH (08:24)
[2017-04-27] MEDS: predniSONE TAB* 20 MG PO SCH (08:25)
[2017-04-27] MEDS: Nicotine GUM* 2 MG PO PRN ×2 (14:35→17:29)
[2017-04-27] MEDS: Ibuprofen TAB* 600 MG PO PRN (14:35)
--- NOTE | 2017-04-27 16:08 | PN ---
Subjective - Subjective Service Type: [id number] Hosp care 15 min low complexity Subjective: Patient reports that the worst of her opioid withdrawal is over and she is more visible on the unit. She declines the offer for inpatient rehab, stating that she has to be out of her apartment by the end of the month and there is nobody to move her belongings if she is inpatient somewhere. She continues to endorse depressed mood and suicidality. "I'm in a dark place. I need a few more days here." She is agreeable with referral to the ACT team. Objective - Appearance Appearance: Well Developed/Nourished Dysmorphic Features: No Hygiene: Normal Grooming: Disheveled - Behavior Psychomotor Activities: Abnormal-Decreased Exhibits Abnormal Movement: No - Attitude and Relatedness Attitude and Relatedness: Withdrawn Eye Contact: Fair - Speech Quality: Unpressured Latencies: Normal Quantity: Appropriate - Mood Patient's Decription of Mood: "Sad" - Affect Observed Affect: Constricted Affect Consistent with: Dysphoria - Thought Process Patient's Thought Process: Coherent Thought Content: Yes Passive Wish, No Suicidal Planning, No Homicidal Ideation, No Paranoid Ideation - Sensorium Experiencing Hallucinations: No, Sensorium is Clear Type of Hallucinations: Visual: No, Auditory: No, Command: No - Level of Consciousness Level of Consciousness: Alert Orientation: Yes Intact, Yes Orientated to Time, Yes Orientated to Place, Yes Orientated to Person - Impulse Control Impulse Control: Tenuous - Insight and Judgement Insight and Judgement: Fair - Group Participation Particating in Group Activities: No - Medication Management Medication Management Adherence: Yes Assessment - Assessment Merits Inpatient Hospitalization: For Immediate Safety, For Stabilization Inpatient 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 single, homosexual, white female with a well-established history of polysubstance dependence and affective instability, along with numerous past admissions to the [facility] in the setting of drug abuse and suicidality, who presents with SI. Plan - Plan Treatment Plan: Name: EDD LOVING Birthdate: 1970 [id number] The patient continues to complain of depression and SI. We have started lurasidone 40mg PO qday for agitation and mood instability. Patient to be referred to ACT team and ADC. Target d/c for Tuesday, (8/18). Continued Medication Management: Start Medication Medications: Current Medications Bupropion HCl (Wellbutrin Xl *) 450 mg PO DAILY [facility] Last Admin: 04/27/17 08:24 Dose: 450 mg Clonidine HCl (Catapres Tab*) 0.1 mg PO BID [facility] Last Admin: 04/27/17 08:24 Dose: 0.1 mg Famotidine (Pepcid Tab*) 40 mg PO DAILY [facility] Last Admin: 04/27/17 08:24 Dose: 40 mg Guaifenesin (Robitussin*) 5 ml PO Q4H PRN PRN Reason: COUGH Ibuprofen (Motrin Tab*) 600 mg PO Q6H PRN PRN Reason: PAIN Last Admin: 04/27/17 14:35 Dose: 600 mg Loperamide HCl (Imodium Cap*) 2 mg PO .SEE DIRECTIONS PRN PRN Reason: DIARRHEA Lurasidone HCl (Latuda (Nf)) 40 mg PO DAILY [facility] Last Admin: 04/27/17 08:24 Dose: 40 mg Methocarbamol (Robaxin Tab*) 750 mg PO TID PRN PRN Reason: muscle ache / spasm Last Admin: 04/25/17 15:51 Dose: 750 mg Nicotine (Nicotine Inhaler*) 10 mg INH Q2H PRN PRN Reason: CRAVING Last Admin: 04/25/17 15:51 Dose: 10 mg Nicotine Polacrilex (Nicotine Gum*) 2 mg PO Q2H PRN PRN Reason: CRAVING Last Admin: 04/27/17 14:35 Dose: 2 mg Ondansetron HCl (Zofran Odt Tab*) 4 mg PO Q6H PRN PRN Reason: NAUSEA Last Admin: 04/25/17 15:50 Dose: 4 mg Prednisone (Deltasone Tab*) 60 mg PO DAILY [facility] Last Admin: 04/27/17 08:25 Dose: 60 mg Quetiapine Fumarate (Seroquel Tab*) 100 mg PO Q6H PRN PRN Reason: AGITATION/ANXIETY/INSOMNIA Last Admin: 04/27/17 08:24 Dose: 100 mg Trazodone HCl (Desyrel Tab*) 300 mg PO BEDTIME [facility] Last Admin: 04/26/17 20:44 Dose: 300 mg - Discharge Plan Discharge Plan: Inpatient Hospitalization
[2017-04-27] MEDS ORDERED: Mouth Piece, Nicotine* 1 EACH CARTRIDGE ONE (16:14)
[2017-04-27] MEDS: Nicotine Inhaler* 10 MG AMP INH PRN (16:15)
[2017-04-27] MEDS: traZODone TAB* 100 MG PO SCH (20:13)
[2017-04-27] MEDS: guaiFENesin LIQ* 100 MG/5 ML UDC PO PRN (20:13)
[2017-04-28] MEDS: BuPROPion XL* 150 MG TAB.XL PO SCH (08:13)
[2017-04-28] MEDS: LURASIDONE 40 MG PO SCH (08:14)
[2017-04-28] MEDS: predniSONE TAB* 20 MG PO SCH (08:14)
[2017-04-28] MEDS: cloNIDine TAB* 0.1 MG PO SCH ×2 (08:14→20:53)
[2017-04-28] MEDS: QUEtiapine TAB* 100 MG PO PRN ×2 (08:15→20:53)
[2017-04-28] MEDS: Famotidine TAB* 20 MG PO SCH (08:15)
[2017-04-28] MEDS: guaiFENesin LIQ* 100 MG/5 ML UDC PO PRN (08:15)
[2017-04-28] MEDS: Ibuprofen TAB* 600 MG PO PRN ×2 (11:44→18:54)
--- NOTE | 2017-04-28 12:54 | PN ---
Subjective - Subjective Service Type: [id number] Hosp care 15 min low complexity Subjective: Patient remains depressed and withdrawn, sleeping in her room during the day and endorsing passive SI without plan. She requests continued inpatient treatment through the weekend. When confronted with lack of participation in milieu activities she agrees to attend more group programming. Patient agreeable with ACT referral. Objective - Appearance Appearance: Well Developed/Nourished Dysmorphic Features: No Hygiene: Normal Grooming: Disheveled - Behavior Psychomotor Activities: Abnormal-Decreased Exhibits Abnormal Movement: No - Attitude and Relatedness Attitude and Relatedness: Withdrawn Eye Contact: Poor - Speech Quality: Unpressured Latencies: Normal Quantity: Terse - Mood Patient's Decription of Mood: "Sad" - Affect Observed Affect: Constricted Affect Consistent with: Dysphoria - Thought Process Patient's Thought Process: Coherent Thought Content: Yes Passive Wish, No Suicidal Planning, No Homicidal Ideation, No Paranoid Ideation - Sensorium Experiencing Hallucinations: No, Sensorium is Clear Type of Hallucinations: Visual: No, Auditory: No, Command: No - Level of Consciousness Level of Consciousness: Alert Orientation: Yes Intact, Yes Orientated to Time, Yes Orientated to Place, Yes Orientated to Person - Impulse Control Impulse Control: Poor - Insight and Judgement Insight and Judgement: Impaired - Group Participation Particating in Group Activities: No - Medication Management Medication Management Adherence: Yes Assessment - Assessment Merits Inpatient Hospitalization: For Immediate Safety, For Stabilization Inpatient 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 single, homosexual, white female with a well-established history of polysubstance dependence and affective instability, along with numerous past admissions to the [facility] in the setting of drug abuse and suicidality, who presents with SI. Plan - Plan Treatment Plan: Name: EDD LOVING Birthdate: 1970 [id number] The patient continues to complain of depression and SI. We have started lurasidone 40mg PO qday for agitation and mood instability. Patient to be referred to ACT team and ADC. Target d/c for Tuesday, (05/02). Continued Medication Management: Start Medication Medications: Current Medications Bupropion HCl (Wellbutrin Xl *) 450 mg PO DAILY [facility] Last Admin: 04/28/17 08:13 Dose: 450 mg Clonidine HCl (Catapres Tab*) 0.1 mg PO BID [facility] Last Admin: 04/28/17 08:14 Dose: 0.1 mg Famotidine (Pepcid Tab*) 40 mg PO DAILY [facility] Last Admin: 04/28/17 08:15 Dose: 40 mg Guaifenesin (Robitussin*) 5 ml PO Q4H PRN PRN Reason: COUGH Last Admin: 04/28/17 08:15 Dose: 5 ml Ibuprofen (Motrin Tab*) 600 mg PO Q6H PRN PRN Reason: PAIN Last Admin: 04/28/17 11:44 Dose: 600 mg Loperamide HCl (Imodium Cap*) 2 mg PO .SEE DIRECTIONS PRN PRN Reason: DIARRHEA Lurasidone HCl (Latuda (Nf)) 40 mg PO DAILY [facility] Last Admin: 04/28/17 08:14 Dose: 40 mg Methocarbamol (Robaxin Tab*) 750 mg PO TID PRN PRN Reason: muscle ache / spasm Last Admin: 04/25/17 15:51 Dose: 750 mg Nicotine (Nicotine Inhaler*) 10 mg INH Q2H PRN PRN Reason: CRAVING Last Admin: 04/27/17 16:15 Dose: 10 mg Nicotine Polacrilex (Nicotine Gum*) 2 mg PO Q2H PRN PRN Reason: CRAVING Last Admin: 04/27/17 17:29 Dose: 2 mg Ondansetron HCl (Zofran Odt Tab*) 4 mg PO Q6H PRN PRN Reason: NAUSEA Last Admin: 04/25/17 15:50 Dose: 4 mg Prednisone (Deltasone Tab*) 60 mg PO DAILY [facility] Last Admin: 04/28/17 08:14 Dose: 60 mg Quetiapine Fumarate (Seroquel Tab*) 100 mg PO Q6H PRN PRN Reason: AGITATION/ANXIETY/INSOMNIA Last Admin: 04/28/17 08:15 Dose: 100 mg Trazodone HCl (Desyrel Tab*) 300 mg PO BEDTIME [facility] Last Admin: 04/27/17 20:13 Dose: 300 mg - Discharge Plan Discharge Plan: Inpatient Hospitalization
[2017-04-28] MEDS: Nicotine GUM* 2 MG PO PRN ×2 (15:23→18:54)
[2017-04-28] MEDS: Docusate CAP* 100 MG PO PRN (15:23)
[2017-04-28] MEDS: Magnesium Hydroxide LIQ* 30 ML UDC PO PRN (15:23)
--- NOTE | 2017-04-28 15:58 | PN ---
[facility]: Group Therapy Note - Service Type Service Type: [id number] Group Psychotherapy - Group Participation Patient Participating in Group: Yes Level of Group Participation: Attentive, Inattentive - left early Relatedness to Group: Defended - irritable
[2017-04-28] MEDS: traZODone TAB* 100 MG PO SCH (20:53)
[2017-04-29] MEDS: predniSONE TAB* 20 MG PO SCH (08:12)
[2017-04-29] MEDS: Magnesium Hydroxide LIQ* 30 ML UDC PO PRN (08:12)
[2017-04-29] MEDS: BuPROPion XL* 150 MG TAB.XL PO SCH (08:12)
[2017-04-29] MEDS: LURASIDONE 40 MG PO SCH (08:13)
[2017-04-29] MEDS: cloNIDine TAB* 0.1 MG PO SCH ×2 (08:14→21:47)
[2017-04-29] MEDS: Docusate CAP* 100 MG PO PRN (08:14)
[2017-04-29] MEDS: Famotidine TAB* 20 MG PO SCH (08:14)
[2017-04-29] MEDS: Ibuprofen TAB* 600 MG PO PRN ×3 (08:14→21:46)
[2017-04-29] MEDS ORDERED: Mouth Piece, Nicotine* 1 EACH CARTRIDGE ONE (12:47)
[2017-04-29] MEDS: Nicotine Inhaler* 10 MG AMP INH PRN ×3 (12:49→21:48)
--- NOTE | 2017-04-29 14:50 | PN ---
Subjective - Subjective Service Type: 28121 Hosp care 15 min low complexity Subjective: Patient appears more social, outgoing and less depressed today. She is making appropriate phone calls to try to secure new housing in the community and she remains agreeable with ACT follow up in the community. She is requesting discharge home for next Tuesday, 05/02. Objective - Appearance Appearance: Well Developed/Nourished Dysmorphic Features: No Hygiene: Normal Grooming: Well Kept - Behavior Psychomotor Activities: Normal Exhibits Abnormal Movement: No - Attitude and Relatedness Attitude and Relatedness: Cooperative Eye Contact: Fair - Speech Quality: Unpressured Latencies: Normal Quantity: Appropriate - Mood Patient's Decription of Mood: "Okay" - Affect Observed Affect: Fair Affect Consistent with: Euthymia - Thought Process Patient's Thought Process: Coherent Thought Content: No Passive Wish, No Suicidal Planning, No Homicidal Ideation, No Paranoid Ideation - Sensorium Experiencing Hallucinations: No, Sensorium is Clear Type of Hallucinations: Visual: No, Auditory: No, Command: No - Level of Consciousness Level of Consciousness: Alert Orientation: Yes Intact, Yes Orientated to Time, Yes Orientated to Place, Yes Orientated to Person - Impulse Control Impulse Control: Tenuous - Insight and Judgement Insight and Judgement: Fair - Group Participation Particating in Group Activities: Yes - Medication Management Medication Management Adherence: Yes Assessment - Assessment Merits Inpatient Hospitalization: Consolidate Improvements, Pending Safe DC Plan Inpatient 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 single, homosexual, white female with a well-established history of polysubstance dependence and affective instability, along with numerous past admissions to the [facility] in the setting of drug abuse and suicidality, who presents with SI. Plan - Plan Treatment Plan: Name: EDD LOVING Birthdate: 1970 [id number] The patient appears to be improving. We have started lurasidone 40mg PO qday for agitation and mood instability. Patient to be referred to ACT team and ADC. Target d/c for Tuesday, (05/02). Continued Medication Management: Different Medication Medications: Current Medications Bupropion HCl (Wellbutrin Xl *) 450 mg PO DAILY [facility] Last Admin: 04/29/17 08:12 Dose: 450 mg Clonidine HCl (Catapres Tab*) 0.1 mg PO BID [facility] Last Admin: 04/29/17 08:14 Dose: 0.1 mg Docusate Sodium (Colace Cap*) 100 mg PO DAILY PRN PRN Reason: CONSTIPATION Last Admin: 04/29/17 08:14 Dose: 100 mg Famotidine (Pepcid Tab*) 40 mg PO DAILY [facility] Last Admin: 04/29/17 08:14 Dose: 40 mg Guaifenesin (Robitussin*) 5 ml PO Q4H PRN PRN Reason: COUGH Last Admin: 04/28/17 08:15 Dose: 5 ml Ibuprofen (Motrin Tab*) 600 mg PO Q6H PRN PRN Reason: PAIN Last Admin: 04/29/17 12:49 Dose: 600 mg Loperamide HCl (Imodium Cap*) 2 mg PO .SEE DIRECTIONS PRN PRN Reason: DIARRHEA Lurasidone HCl (Latuda (Nf)) 40 mg PO DAILY [facility] Last Admin: 04/29/17 08:13 Dose: 40 mg Magnesium Hydroxide (Milk Of Magnesia Liq*) 30 ml PO Q6H PRN PRN Reason: CONSTIPATION Last Admin: 04/29/17 08:12 Dose: 30 ml Methocarbamol (Robaxin Tab*) 750 mg PO TID PRN PRN Reason: muscle ache / spasm Last Admin: 04/25/17 15:51 Dose: 750 mg Nicotine (Nicotine Inhaler*) 10 mg INH Q2H PRN PRN Reason: CRAVING Last Admin: 04/29/17 12:49 Dose: 10 mg Nicotine Polacrilex (Nicotine Gum*) 2 mg PO Q2H PRN PRN Reason: CRAVING Last Admin: 04/28/17 18:54 Dose: 2 mg Ondansetron HCl (Zofran Odt Tab*) 4 mg PO Q6H PRN PRN Reason: NAUSEA Last Admin: 04/25/17 15:50 Dose: 4 mg Prednisone (Deltasone Tab*) 60 mg PO DAILY [facility] Last Admin: 04/29/17 08:12 Dose: 60 mg Quetiapine Fumarate (Seroquel Tab*) 100 mg PO Q6H PRN PRN Reason: AGITATION/ANXIETY/INSOMNIA Last Admin: 04/28/17 20:53 Dose: 100 mg Trazodone HCl (Desyrel Tab*) 300 mg PO BEDTIME [facility] Last Admin: 04/28/17 20:53 Dose: 300 mg - Discharge Plan Discharge Plan: Inpatient Hospitalization
[2017-04-29] MEDS: Nicotine GUM* 2 MG PO PRN ×2 (16:34→21:47)
[2017-04-29] MEDS: traZODone TAB* 100 MG PO SCH (21:46)
[2017-04-29] MEDS: QUEtiapine TAB* 100 MG PO PRN (21:46)
[2017-04-30] MEDS: Ibuprofen TAB* 600 MG PO PRN ×2 (08:34→17:45)
[2017-04-30] MEDS: BuPROPion XL* 150 MG TAB.XL PO SCH (08:34)
[2017-04-30] MEDS: Famotidine TAB* 20 MG PO SCH (08:35)
[2017-04-30] MEDS: cloNIDine TAB* 0.1 MG PO SCH ×2 (08:35→21:55)
[2017-04-30] MEDS: LURASIDONE 40 MG PO SCH (08:35)
[2017-04-30] MEDS: predniSONE TAB* 20 MG PO SCH (08:36)
[2017-04-30] MEDS: Nicotine GUM* 2 MG PO PRN ×2 (10:07→14:12)
[2017-04-30] MEDS: Nicotine Inhaler* 10 MG AMP INH PRN ×3 (10:07→19:56)
[2017-04-30] MEDS: Methocarbamol TAB* 500 MG PO PRN ×2 (14:13→22:06)
[2017-04-30] MEDS: traZODone TAB* 100 MG PO SCH (21:55)
[2017-04-30] MEDS: QUEtiapine TAB* 100 MG PO PRN (21:56)
[2017-05-01] MEDS: Nicotine GUM* 2 MG PO PRN ×2 (08:25→16:53)
[2017-05-01] MEDS: Nicotine Inhaler* 10 MG AMP INH PRN (08:25)
[2017-05-01] MEDS: Ibuprofen TAB* 600 MG PO PRN ×2 (08:25→16:52)
[2017-05-01] MEDS: predniSONE TAB* 20 MG PO SCH (08:26)
[2017-05-01] MEDS: BuPROPion XL* 150 MG TAB.XL PO SCH (08:26)
[2017-05-01] MEDS: cloNIDine TAB* 0.1 MG PO SCH ×2 (08:26→21:38)
[2017-05-01] MEDS: LURASIDONE 40 MG PO SCH (08:26)
[2017-05-01] MEDS: Famotidine TAB* 20 MG PO SCH (08:26)
[2017-05-01] MEDS: Methocarbamol TAB* 500 MG PO PRN ×2 (08:29→16:50)
[2017-05-01] MEDS: traZODone TAB* 100 MG PO SCH (21:37)
[2017-05-01] MEDS: QUEtiapine TAB* 100 MG PO PRN (21:37)
[2017-05-02] MEDS: BuPROPion XL* 150 MG TAB.XL PO SCH (09:49)
[2017-05-02] MEDS: cloNIDine TAB* 0.1 MG PO SCH ×2 (09:49→21:48)
[2017-05-02] MEDS: Famotidine TAB* 20 MG PO SCH (09:49)
[2017-05-02] MEDS: predniSONE TAB* 20 MG PO SCH (09:50)
[2017-05-02] MEDS: Ibuprofen TAB* 600 MG PO PRN ×2 (09:50→21:48)
[2017-05-02] MEDS: LURASIDONE 40 MG PO SCH (09:50)
[2017-05-02] MEDS: Nicotine GUM* 2 MG PO PRN (09:50)
[2017-05-02] MEDS: Nicotine Inhaler* 10 MG AMP INH PRN (09:51)
[2017-05-02] MEDS: Methocarbamol TAB* 500 MG PO PRN ×2 (09:52→21:48)
--- NOTE | 2017-05-02 10:36 | PN ---
Subjective - Subjective Service Type: [id number] Hosp care 15 min low complexity Subjective: The patient appears dishevelled and dysphoric. She states that she is afraid of relapsing on heroin if she leaves the unit and, although she denies SI here, reports that she will likely become suicidal if discharged. "I need two more days in here, supervised on my meds. I'm not evened out yet." Staff reports that she has been skipping groups and socializing only with selected peers. Objective - Appearance Appearance: Well Developed/Nourished Dysmorphic Features: No Hygiene: Normal Grooming: Well Kept - Behavior Psychomotor Activities: Normal Exhibits Abnormal Movement: No - Attitude and Relatedness Attitude and Relatedness: Cooperative Eye Contact: Fair - Speech Quality: Unpressured Latencies: Normal Quantity: Appropriate - Mood Patient's Decription of Mood: "Irritable" - Affect Observed Affect: Constricted Affect Consistent with: Dysphoria - Thought Process Patient's Thought Process: Coherent Thought Content: Yes Suicidal Planning, No Passive Wish, No Homicidal Ideation, No Paranoid Ideation - Sensorium Experiencing Hallucinations: No, Sensorium is Clear Type of Hallucinations: Visual: No, Auditory: No, Command: No - Level of Consciousness Level of Consciousness: Alert Orientation: Yes Intact, Yes Orientated to Time, Yes Orientated to Place, Yes Orientated to Person - Impulse Control Impulse Control: Tenuous - Insight and Judgement Insight and Judgement: Fair - Group Participation Particating in Group Activities: No - Medication Management Medication Management Adherence: Yes Assessment - Assessment Merits Inpatient Hospitalization: For Immediate Safety, For Stabilization Inpatient 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 single, homosexual, white female with a well-established history of polysubstance dependence and affective instability, along with numerous past admissions to the [facility] in the setting of drug abuse and suicidality, who presents with SI. Plan - Plan Treatment Plan: Name: EDD LOVING Birthdate: 1970 [id number] The patient is still threatening to suicide if discharged. Needs encouragement to participate in group programming. We have started lurasidone 40mg PO qday for agitation and mood instability. Patient to be referred to ACT team and ADC. Target d/c for Tuesday, (05/04). Continued Medication Management: Different Medication Medications: Current Medications Bupropion HCl (Wellbutrin Xl *) 450 mg PO DAILY [facility] Last Admin: 05/02/17 09:49 Dose: 450 mg Clonidine HCl (Catapres Tab*) 0.1 mg PO BID [facility] Last Admin: 05/02/17 09:49 Dose: 0.1 mg Docusate Sodium (Colace Cap*) 100 mg PO DAILY PRN PRN Reason: CONSTIPATION Last Admin: 04/29/17 08:14 Dose: 100 mg Famotidine (Pepcid Tab*) 40 mg PO DAILY [facility] Last Admin: 05/02/17 09:49 Dose: 40 mg Guaifenesin (Robitussin*) 5 ml PO Q4H PRN PRN Reason: COUGH Last Admin: 04/28/17 08:15 Dose: 5 ml Ibuprofen (Motrin Tab*) 600 mg PO Q6H PRN PRN Reason: PAIN Last Admin: 05/02/17 09:50 Dose: 600 mg Loperamide HCl (Imodium Cap*) 2 mg PO .SEE DIRECTIONS PRN PRN Reason: DIARRHEA Loratadine (Claritin Tab(Nf)) 10 mg PO DAILY [facility] Lurasidone HCl (Latuda (Nf)) 40 mg PO DAILY [facility] Last Admin: 05/02/17 09:50 Dose: 40 mg Magnesium Hydroxide (Milk Of Magnesia Liq*) 30 ml PO Q6H PRN PRN Reason: CONSTIPATION Last Admin: 04/29/17 08:12 Dose: 30 ml Methocarbamol (Robaxin Tab*) 750 mg PO TID PRN PRN Reason: muscle ache / spasm Last Admin: 05/02/17 09:52 Dose: 750 mg Nicotine (Nicotine Inhaler*) 10 mg INH Q2H PRN PRN Reason: CRAVING Last Admin: 05/02/17 09:51 Dose: 10 mg Nicotine Polacrilex (Nicotine Gum*) 2 mg PO Q2H PRN PRN Reason: CRAVING Last Admin: 05/02/17 09:50 Dose: 2 mg Ondansetron HCl (Zofran Odt Tab*) 4 mg PO Q6H PRN PRN Reason: NAUSEA Last Admin: 04/25/17 15:50 Dose: 4 mg Prednisone (Deltasone Tab*) 60 mg PO DAILY [facility] Last Admin: 05/02/17 09:50 Dose: 60 mg Quetiapine Fumarate (Seroquel Tab*) 100 mg PO Q6H PRN PRN Reason: AGITATION/ANXIETY/INSOMNIA Last Admin: 05/01/17 21:37 Dose: 100 mg Trazodone HCl (Desyrel Tab*) 300 mg PO BEDTIME [facility] Last Admin: 05/01/17 21:37 Dose: 300 mg - Discharge Plan Discharge Plan: Inpatient Hospitalization
[2017-05-02] MEDS: Cetirizine* 10 MG TAB PO SCH (11:22)
[2017-05-02] MEDS: Montelukast Sodium TAB* 10 MG PO SCH (11:22)
[2017-05-02] MEDS: traZODone TAB* 100 MG PO SCH (21:48)
[2017-05-02] MEDS: QUEtiapine TAB* 100 MG PO PRN (21:48)
[2017-05-03] MEDS: BuPROPion XL* 150 MG TAB.XL PO SCH (09:52)
[2017-05-03] MEDS: cloNIDine TAB* 0.1 MG PO SCH ×2 (09:52→21:30)
[2017-05-03] MEDS: predniSONE TAB* 20 MG PO SCH (09:52)
[2017-05-03] MEDS: LURASIDONE 40 MG PO SCH (09:53)
[2017-05-03] MEDS: Cetirizine* 10 MG TAB PO SCH (09:53)
[2017-05-03] MEDS: Famotidine TAB* 20 MG PO SCH (09:53)
[2017-05-03] MEDS: Montelukast Sodium TAB* 10 MG PO SCH (09:53)
--- NOTE | 2017-05-03 11:09 | PN ---
Subjective - Subjective Service Type: [id number] Hosp care 15 min low complexity Subjective: Patient out of room, going to groups, social, future oriented. Requesting d/c tomorrow. Will get help moving apartments from outpatient case monitor, Kalli Mortensen, through [facility] Care Coordination. Will have intake meeting with ACT staff here on unit this afternoon. Denies SI. Objective - Appearance Appearance: Well Developed/Nourished Dysmorphic Features: No Hygiene: Normal Grooming: Well Kept - Behavior Psychomotor Activities: Normal Exhibits Abnormal Movement: No - Attitude and Relatedness Attitude and Relatedness: Cooperative Eye Contact: Good - Speech Quality: Unpressured Latencies: Normal Quantity: Appropriate - Mood Patient's Decription of Mood: "Good" - Affect Observed Affect: Fair Affect Consistent with: Euthymia - Thought Process Patient's Thought Process: Coherent Thought Content: No Passive Wish, No Suicidal Planning, No Homicidal Ideation, No Paranoid Ideation - Sensorium Experiencing Hallucinations: No, Sensorium is Clear Type of Hallucinations: Visual: No, Auditory: No, Command: No - Level of Consciousness Level of Consciousness: Alert Orientation: Yes Intact, Yes Orientated to Time, Yes Orientated to Place, Yes Orientated to Person - Impulse Control Impulse Control: Tenuous - Insight and Judgement Insight and Judgement: Fair - Group Participation Particating in Group Activities: Yes - Medication Management Medication Management Adherence: Yes Assessment - Assessment Merits Inpatient Hospitalization: Consolidate Improvements, Pending Safe DC Plan Inpatient 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 single, homosexual, white female with a well-established history of polysubstance dependence and affective instability, along with numerous past admissions to the [facility] in the setting of drug abuse and suicidality, who presents with SI. Plan - Plan Treatment Plan: Name: EDD LOVING Birthdate: 1970 [id number] The patient denies SI. We have started lurasidone 40mg PO qday for agitation and mood instability. Patient to be referred to ACT team and ADC. Target d/c for tomorrow, Tuesday, (05/04). Continued Medication Management: Different Medication Medications: Current Medications Bupropion HCl (Wellbutrin Xl *) 450 mg PO DAILY [facility] Last Admin: 05/03/17 09:52 Dose: 450 mg Cetirizine HCl (Zyrtec*) 10 mg PO DAILY [facility] Last Admin: 05/03/17 09:53 Dose: 10 mg Clonidine HCl (Catapres Tab*) 0.1 mg PO BID [facility] Last Admin: 05/03/17 09:52 Dose: Not Given Docusate Sodium (Colace Cap*) 100 mg PO DAILY PRN PRN Reason: CONSTIPATION Last Admin: 04/29/17 08:14 Dose: 100 mg Famotidine (Pepcid Tab*) 40 mg PO DAILY [facility] Last Admin: 05/03/17 09:53 Dose: 40 mg Guaifenesin (Robitussin*) 5 ml PO Q4H PRN PRN Reason: COUGH Last Admin: 04/28/17 08:15 Dose: 5 ml Ibuprofen (Motrin Tab*) 600 mg PO Q6H PRN PRN Reason: PAIN Last Admin: 05/02/17 21:48 Dose: 600 mg Loperamide HCl (Imodium Cap*) 2 mg PO .SEE DIRECTIONS PRN PRN Reason: DIARRHEA Lurasidone HCl (Latuda (Nf)) 40 mg PO DAILY [facility] Last Admin: 05/03/17 09:53 Dose: 40 mg Magnesium Hydroxide (Milk Of Magnesia Liq*) 30 ml PO Q6H PRN PRN Reason: CONSTIPATION Last Admin: 04/29/17 08:12 Dose: 30 ml Methocarbamol (Robaxin Tab*) 750 mg PO TID PRN PRN Reason: muscle ache / spasm Last Admin: 05/02/17 21:48 Dose: 750 mg Montelukast Sodium (Singulair Tab*) 10 mg PO DAILY [facility] Last Admin: 05/03/17 09:53 Dose: 10 mg Nicotine (Nicotine Inhaler*) 10 mg INH Q2H PRN PRN Reason: CRAVING Last Admin: 05/02/17 09:51 Dose: 10 mg Nicotine Polacrilex (Nicotine Gum*) 2 mg PO Q2H PRN PRN Reason: CRAVING Last Admin: 05/02/17 09:50 Dose: 2 mg Ondansetron HCl (Zofran Odt Tab*) 4 mg PO Q6H PRN PRN Reason: NAUSEA Last Admin: 04/25/17 15:50 Dose: 4 mg Prednisone (Deltasone Tab*) 60 mg PO DAILY [facility] Last Admin: 05/03/17 09:52 Dose: 60 mg Quetiapine Fumarate (Seroquel Tab*) 100 mg PO Q6H PRN PRN Reason: AGITATION/ANXIETY/INSOMNIA Last Admin: 05/02/17 21:48 Dose: 100 mg Trazodone HCl (Desyrel Tab*) 300 mg PO BEDTIME [facility] Last Admin: 05/02/17 21:48 Dose: 300 mg - Discharge Plan Discharge Plan: Outpatient Follow Up Outpatient Program: ACT team
--- NOTE | 2017-05-03 11:26 | PN ---
[facility]: Group Therapy Note - Service Type Service Type: [id number] Group Psychotherapy - Cognitive Behavioral Group Therapy ( CBT):Patient was attentive and participatory in CBT programming this morning, and remained in good behavioral control. Patient expressed positive insights regarding relevant treatment interventions and goals.
[2017-05-03] MEDS: Magnesium Hydroxide LIQ* 30 ML UDC PO PRN (12:29)
[2017-05-03] MEDS: Docusate CAP* 100 MG PO PRN (12:29)
[2017-05-03] MEDS: Nicotine GUM* 2 MG PO PRN (12:30)
[2017-05-03] MEDS: Methocarbamol TAB* 500 MG PO PRN (17:48)
[2017-05-03] MEDS: traZODone TAB* 100 MG PO SCH (21:30)
[2017-05-03] MEDS: QUEtiapine TAB* 100 MG PO PRN (21:41)
[2017-05-04 08:16] VITALS: BP 87/51
[2017-05-04] MEDS: Cetirizine* 10 MG TAB PO SCH (09:30)
[2017-05-04] MEDS: Montelukast Sodium TAB* 10 MG PO SCH (09:30)
[2017-05-04] MEDS: LURASIDONE 40 MG PO SCH (09:30)
[2017-05-04] MEDS: Famotidine TAB* 20 MG PO SCH (09:31)
[2017-05-04] MEDS: predniSONE TAB* 20 MG PO SCH (09:31)
[2017-05-04] MEDS: Ibuprofen TAB* 600 MG PO PRN (09:31)
[2017-05-04] MEDS: BuPROPion XL* 150 MG TAB.XL PO SCH (09:32)
[2017-05-04] MEDS: cloNIDine TAB* 0.1 MG PO SCH (09:32)
--- NOTE | 2017-05-04 10:41 | DCNOTE ---
Subjective - Subjective Service Types: 93745 Hosp [place] Day Mgmt simple under 30 min Discharge Date: 05/04/17 Subjective: Patient euthymic, smiling, eager to return to her apartment in the community with supports such as ACT and [facility] Care Coordination. Patient denies SI and is active with peers and the milieu. Objective - Appearance Appearance: Well Developed/Nourished Dysmorphic Features: No Hygiene: Normal Grooming: Well Kept - Behavior Psychomotor Activities: Normal Exhibits Abnormal Movement: No - Attitude and Relatedness Attitude and Relatedness: Cooperative Eye Contact: Good - Speech Quality: Unpressured Latencies: Normal Quantity: Appropriate - Mood Patient's Decription of Mood: "Good" - Affect Observed Affect: Good Affect Consistent with: Euthymia - Thought Process Patient's Thought Process: Coherent Thought Content: No Passive Wish, No Suicidal Planning, No Homicidal Ideation, No Paranoid Ideation - Sensorium Experiencing Hallucinations: No, Sensorium is Clear Type of Hallucinations: Visual: No, Auditory: No, Command: No - Level of Consciousness Level of Consciousness: Alert Orientation: Yes Intact, Yes Orientated to Time, Yes Orientated to Place, Yes Orientated to Person - Impulse Control Impulse Control: Intact - Insight and Judgement Insight and Judgement: Good - Group Participation Particating in Group Activities: Yes - Medication Management Medication Management Adherence: Yes DC Assessment - Assessment Clinical Impression: 46 y.o. single, homosexual, white female with a well-established history of polysubstance dependence and affective instability, along with numerous past admissions to the [facility] in the setting of drug abuse and suicidality, who presents with SI. 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 Discharge Planning - Discharge Planning Discharge Plan: Outpatient Follow Up Outpatient Program: ACT team Recommendations for Continuing Care: Medication Management, Psychotherapy, Substance Abuse Counseling Medications: Current Medications Bupropion HCl (Wellbutrin Xl *) 450 mg PO DAILY [facility] Last Admin: 05/04/17 09:32 Dose: 450 mg Cetirizine HCl (Zyrtec*) 10 mg PO DAILY [facility] Last Admin: 05/04/17 09:30 Dose: 10 mg Clonidine HCl (Catapres Tab*) 0.1 mg PO BID [facility] Last Admin: 05/04/17 09:32 Dose: 0.1 mg Docusate Sodium (Colace Cap*) 100 mg PO DAILY PRN PRN Reason: CONSTIPATION Last Admin: 05/03/17 12:29 Dose: 100 mg Famotidine (Pepcid Tab*) 40 mg PO DAILY [facility] Last Admin: 05/04/17 09:31 Dose: 40 mg Guaifenesin (Robitussin*) 5 ml PO Q4H PRN PRN Reason: COUGH Last Admin: 04/28/17 08:15 Dose: 5 ml Ibuprofen (Motrin Tab*) 600 mg PO Q6H PRN PRN Reason: PAIN Last Admin: 05/04/17 09:31 Dose: 600 mg Loperamide HCl (Imodium Cap*) 2 mg PO .SEE DIRECTIONS PRN PRN Reason: DIARRHEA Lurasidone HCl (Latuda (Nf)) 40 mg PO DAILY [facility] Last Admin: 05/04/17 09:30 Dose: 40 mg Magnesium Hydroxide (Milk Of Magnesia Liq*) 30 ml PO Q6H PRN PRN Reason: CONSTIPATION Last Admin: 05/03/17 12:29 Dose: 30 ml Methocarbamol (Robaxin Tab*) 750 mg PO TID PRN PRN Reason: muscle ache / spasm Last Admin: 05/03/17 17:48 Dose: 750 mg Montelukast Sodium (Singulair Tab*) 10 mg PO DAILY [facility] Last Admin: 05/04/17 09:30 Dose: 10 mg Nicotine (Nicotine Inhaler*) 10 mg INH Q2H PRN PRN Reason: CRAVING Last Admin: 05/02/17 09:51 Dose: 10 mg Nicotine Polacrilex (Nicotine Gum*) 2 mg PO Q2H PRN PRN Reason: CRAVING Last Admin: 05/03/17 12:30 Dose: 2 mg Ondansetron HCl (Zofran Odt Tab*) 4 mg PO Q6H PRN PRN Reason: NAUSEA Last Admin: 04/25/17 15:50 Dose: 4 mg Prednisone (Deltasone Tab*) 60 mg PO DAILY [facility] Last Admin: 05/04/17 09:31 Dose: 60 mg Quetiapine Fumarate (Seroquel Tab*) 100 mg PO Q6H PRN PRN Reason: AGITATION/ANXIETY/INSOMNIA Last Admin: 05/03/17 21:41 Dose: 100 mg Trazodone HCl (Desyrel Tab*) 300 mg PO BEDTIME [facility] Last Admin: 05/03/17 21:30 Dose: 300 mg Discharge Planning: Prescriptions provided for discharge [] Yes [] No Follow up care details as per social work arrangements. Patient response to discharge plan: [] eager for discharge [] agreeable with discharge plan [] ambivalent about discharge [] disagrees with discharge today
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
== END 2017-05-04 12:45 | disposition home or self-care (01) | DRG 885 ==
LOC: ED 22:10 → BSU 04-24 13:14
PROVIDERS: ADMIT Psychiatry & Neurology Psychiatry; ATTEND Psychiatry & Neurology Psychiatry
PROC: GZHZZZZ Group Psychotherapy (ICD-10-PCS; principal; 2017-04-28)
DX: F33.2 Major depressive disorder, recurrent severe without psychotic features (principal); R45.851 Suicidal ideations; F11.23 Opioid dependence with withdrawal; F41.9 Anxiety disorder, unspecified; G89.29 Other chronic pain; J42 Unspecified chronic bronchitis; J45.909 Unspecified asthma, uncomplicated; F90.9 Attention-deficit hyperactivity disorder, unspecified type; F43.10 Post-traumatic stress disorder, unspecified; B19.20 Unspecified viral hepatitis C without hepatic coma; F17.210 Nicotine dependence, cigarettes, uncomplicated; M17.0 Bilateral primary osteoarthritis of knee; K21.9 Gastro-esophageal reflux disease without esophagitis; Z62.810 Personal history of physical and sexual abuse in childhood; F11.24 Opioid dependence with opioid-induced mood disorder; F14.10 Cocaine abuse, uncomplicated; F12.10 Cannabis abuse, uncomplicated; Z88.6 Allergy status to analgesic agent; Z88.8 Allergy status to other drugs, medicaments and biological substances; Z91.5 Personal history of self-harm; Z72.89 Other problems related to lifestyle
CPT/HCPCS: 36415; 80053; 80061; 80307; 80320; 80329; 81003; 81015; 83036; 84443; 84702; 85025; 87086; 90853; 99222; 99231; 99238; A9270-GY; G0480; J7512

== ENCOUNTER 2017-06-03 22:12 | Emergency (ER) | payer MEDICARE, MEDICAID ==
[2017-06-03] MEDS ORDERED: NS 0.9% 1000 ML* 2,000 ML IV ONE (23:57)
[2017-06-04 00:56] LABS: Hematocrit 40 % (35-47); Hemoglobin 13.2 g/dl (12.0-16.0); Mean Corpuscular HGB Conc 33 g/dl (31-36); Mean Corpuscular Hemoglobin 29 pg (27-31); Mean Corpuscular Volume 87 fL (80-97); Mean Platelet Volume 8 um3 (7.4-10.4); Red Blood Count 4.54 10^6/ul (4.0-5.4); Red Cell Distribution Width 15 % (10.5-15); White Blood Count 13.4 10^3/ul (3.5-10.8)
[2017-06-04 01:07] LABS: ALT 9 U/L (7-52); AST 16 U/L (13-39); Albumin 4.1 g/dL (3.2-5.2); Alkaline Phosphatase 61 U/L (34-104); Anion Gap 8 mmol/L (2-11); BUN/Creatinine Ratio 19.2 (8-20); Blood Urea Nitrogen 15 mg/dL (6-24); CO2 Carbon Dioxide 27 mmol/L (22-32); Calcium 8.7 mg/dL (8.6-10.3); Chloride 104 mmol/L (101-111); EGFR African American 103.2 (>60); EGFR Non-African American 80.2 (>60); Globulin 2.6 g/dL (2-4); Glucose 96 mg/dL (70-100); Potassium 3.7 mmol/L (3.5-5.0); Sodium 139 mmol/L (133-145); Total Protein 6.7 g/dL (6.4-8.9)
--- NOTE | 2017-06-04 01:50 | ED ---
Elmira Rich Rebecca, scribed for Kirby eLe on 06/03/17 at 2244 . Substance Abuse/Use - HPI Summary HPI Summary: Pt is a 46 y/o F BIBA who presents to ED after being found unresponsive by EMS. She was administered Narcan by EMS which resolved sx. Pt reports she used heroin tonight that "was apparently very strong." Denies SIs, CP and SOB. No other drugs were used tonight. - History Of Current Complaint Chief Complaint: EDOverdose Stated Complaint: SUBSTANCE ABUSE Time Seen by Provider: 06/03/17 22:20 Hx Obtained From: Patient Ingestion History: Type/Name Of Drug - Heroin Overdose Characteristics: IV Aggravating Factor(s): Nothing Alleviating Factor(s): Medication - Narcan Associated Signs And Symptoms: Other: - Unresponsive MANAGER APPOINTMENT - resolved - Allergies/Home Medications Allergies/Adverse Reactions: Allergies Allergy/AdvReac Type Severity Reaction Status Date / Time Omeprazole [From Prilosec] Allergy URINARY Verified 10/20/16 17:15 OBSTRUCTION Tramadol AdvReac Intermediate See Comment Verified 10/20/16 17:15 PMH/Surg Hx/FS Hx/Imm Hx Endocrine/Hematology History: Reports: Hx Thyroid Disease - h/o thyrotoxicosis Denies: Hx Diabetes Cardiovascular History: Denies: Hx Hypertension, Hx Pacemaker/ICD Respiratory History: Reports: Hx Asthma, Hx Chronic Bronchitis Musculoskeletal History: Reports: Hx Arthritis, Other Musculoskeletal History - Chronic pain in left foot due to george bite years ago that has caused limp Sensory History: Denies: Hx Contacts or Glasses, Hx Hearing Aid Opthamlomology History: Denies: Hx Contacts or Glasses Neurological History: Reports: Other Neuro Impairments/Disorders - negative hx of withdrawl or seizure Psychiatric History: Reports: Hx Anxiety, Hx Attention Deficit Hyperactivity Disorder, Hx Depression, Hx Post Traumatic Stress Disorder, Hx Inpatient Treatment, Hx Community Mental Health Tx, Hx Suicide Attempt, Hx Substance Abuse - heroine, cocaine Denies: Hx Eating Disorder, Hx Panic Disorder, Hx Schizophrenia, Hx Bipolar Disorder, Hx of Violent Episodes Against Others, Other Psychiatric Issues/ Disorders Infectious Disease History: Yes Infectious Disease History: Reports: Hx Hepatitis - Hepatitis C Denies: Traveled Outside the [place] in Last 30 Days - Family History Known Family History: Negative: Cardiac Disease, Diabetes - Social History Alcohol Use: Occasionally Alcohol Amount: 6-12 beers a day Hx Substance Use: Yes - reports polysubstance self-medication Substance Use Type: Reports: Cocaine, Excessive Caffeine, Marijuana, Synthetic Drugs, Prescribed Substance Use Comment - Amount & Last Used: Pt states, "I use what ever I can get my hands on" Hx Tobacco Use: Yes Smoking Status (MU): Heavy Every Day Tobacco Smoker Type: Cigarettes Amount Used/How Often: half a pack a day in the last 30 days Have You Smoked in the Last Year: Yes Review of Systems Negative: Chest Pain Negative: Shortness Of Breath Neurological: Other - Unresponsive MANAGER APPOINTMENT - resolved Positive: Other - NEGATIVE: SIs All Other Systems Reviewed And Are Negative: Yes Physical Exam - Summary Physical Exam Summary: Appearance: Well appearing, no pain distress Skin: warm, dry, reflects adequate perfusion Head/face: normal Eyes: EOMI, ROBE ENT: normal Neck: supple, nontender Respiratory: CTA, breath sounds present Cardiovascular: RRR, pulses symmetrical Abdomen: nontender, soft Bowel: present Musculoskeletal: normal, strength/ROM intact Neuro: normal, sensory motor intact, A&Ox3 Triage Information Reviewed: Yes Vital Signs On Initial Exam: Initial Vitals BP 96/64 06/03/17 22:26 Vital Signs Reviewed: Yes - Sahil Coma Scale Coma Scale Total: 15 Diagnostics - Vital Signs Vital Signs Temp Pulse Resp BP Pulse Ox 06/03/17 22:31 98.5 F 109 12 113/68 94 06/03/17 22:30 113 9 113/68 91 06/03/17 22:27 119 26 95 06/03/17 22:26 96/64 - Laboratory Result Diagrams: 06/04/17 00:41 06/04/17 00:41 Lab Statement: Any lab studies that have been ordered have been reviewed, and results considered in the medical decision making process. - EKG 0024 Cardiac Rate: NL - 88 bpm EKG Rhythm: Sinus Rhythm EKG Interpretation: No acute changes Course/Dx - Course Assessment/Plan: Pt is a 46 y/o F BIBA who presents to ED after being found unresponsive by EMS. She was administered Narcan by EMS which resolved sx. Pt reports she used heroin tonight that "was apparently very strong." Denies SIs, CP and SOB. No other drugs were used tonight. EKG is sinus rhythm with no acute changes. Blood work reveals troponin of 0.00. In the ED course, pt received fluids. After observation, pt will be D/C to home with Dx of substance abuse and a follow up with her PCP. She understands and agrees. - Diagnoses Provider Diagnoses: Substance abuse Discharge - Discharge Plan Condition: Stable Disposition: HOME Patient Education Materials: Narcotic Abuse (ED) Referrals: Jeovany Huang MD [Primary Care Provider] - 3 Days The documentation as recorded by the Elmira lock Rebecca accurately reflects the service I personally performed and the decisions made by Jesus nice Emmanuel.
[2017-06-04 02:29] VITALS: BP 91/57
== END 2017-06-04 02:10 | disposition home or self-care (01) ==
LOC: ED 22:12
DX: F19.10 Other psychoactive substance abuse, uncomplicated (principal); F17.210 Nicotine dependence, cigarettes, uncomplicated
CPT/HCPCS: 36415; 80053; 84484; 84702; 85025; 85610; 85730; 93005; 96360; 99283

== ENCOUNTER 2017-06-21 12:27 | Emergency (ER) | payer MEDICARE, MEDICAID ==
[2017-06-21 12:35] VITALS: BP 116/75
--- NOTE | 2017-06-21 13:41 | UC ---
Skin Complaint HPI - HPI Summary HPI Summary: FOUR DAYS OF FACIAL SORES AROUND MOUTH AND LEFT SIDE OF FACE WITH REDNESS, CRUSTING AND WEEPING DRAINAGE. FEVER THREE DAYS AGO, NO FEVER PRESENTLY. NO TICK BITES. ONLY ONE LESION ON SIDE OF RIGHT 5TH FINGER, NO LESIONS ANYWHERE ELSE. - History of Current Complaint Chief Complaint: UCRash Time Seen by Provider: 06/21/17 13:18 Stated Complaint: FEVER RASH Hx Obtained From: Patient Onset/Duration: Gradual Onset, Lasting Days, Still Present Skin Exposure Onset/Duration: Days Ago Onset Severity: Mild Current Severity: Moderate Location: Discrete, Face, Hand (Right) Character: Redness, Painful Aggravating Factor(s): Touch Alleviating Factor(s): Nothing Associated Signs & Symptoms: Positive: Fever, Rash, Drainage, Tenderness Related History: Possible Reaction to: Environmental Exposure - Allergy/Home Medications Allergies/Adverse Reactions: Allergies Allergy/AdvReac Type Severity Reaction Status Date / Time Omeprazole [From Prilosec] Allergy URINARY Verified 10/20/16 17:15 OBSTRUCTION Tramadol AdvReac Intermediate See Comment Verified 10/20/16 17:15 Review of Systems Constitutional: Fever Skin: Rash Eyes: Negative ENT: Negative Respiratory: Negative Cardiovascular: Negative Gastrointestinal: Negative Genitourinary: Negative Motor: Negative Neurovascular: Negative Musculoskeletal: Negative Neurological: Negative Psychological: Negative Is Patient Immunocompromised?: No - HAD HEP C; CURED LAST YEAR All Other Systems Reviewed And Are Negative: Yes PMH/Surg Hx/FS Hx/Imm Hx Previously Healthy: Yes - Surgical History Surgical History: None - Family History Known Family History: Positive: None - REVIEWED & NONCONTRIBUTORY, Unknown Negative: Cardiac Disease, Diabetes - Social History Occupation: Employed Full-time Lives: With Family Alcohol Use: Occasionally Alcohol Amount: 6-12 beers a day Substance Use Type: Cocaine, Excessive Caffeine, Marijuana, Synthetic Drugs, Prescribed Substance Use Comment - Amount & Last Used: marijuana currently Smoking Status (MU): Current Every Day Smoker Type: Cigarettes Amount Used/How Often: half a pack a day in the last 30 days Have You Smoked in the Last Year: Yes Household Exposure Type: Cigarettes - Immunization History Most Recent Influenza Vaccination: unknown Most Recent Tetanus Shot: unknown Most Recent Pneumonia Vaccination: 2016 Physical Exam Triage Information Reviewed: Yes Appearance: Well-Appearing, No Pain Distress, Well-Nourished Vital Signs: Initial Vital Signs Temp 97.1 F 10/10/17 12:31 Pulse 95 06/21/17 12:31 Resp 18 06/21/17 12:31 BP 116/75 06/21/17 12:31 Pulse Ox 98 06/21/17 12:31 Vital Signs Reviewed: Yes Eye Exam: Normal ENT Exam: Normal ENT: Positive: Normal ENT inspection Dental Exam: Normal Neck exam: Normal Neck: Positive: Supple, Nontender, No Lymphadenopathy Respiratory Exam: Normal Respiratory: Positive: Chest non-tender, Lungs clear, Normal breath sounds, No respiratory distress, No accessory muscle use Cardiovascular Exam: Normal Cardiovascular: Positive: RRR, No Murmur, Pulses Normal, Brisk Capillary Refill Abdominal Exam: Normal Musculoskeletal Exam: Normal Musculoskeletal: Positive: Strength Intact, ROM Intact Neurological Exam: Normal Psychological Exam: Normal Skin: Positive: rashes - FOUR DAYS OF CRUSTING WEEPING RASH, RIGHT MOUTH AND CHIN. LEFT CHEEK. RIGHT FIFTH FINGER Course/Dx - Differential Diagnoses - Skin Complaint Differential Diagnoses: Cellulitis, Contact Dermatitis, Drug Rash, Eczema, Impetigo, Local Allergic Reaction, Medication; Adverse Reaction, MRSA, Scabies, [place], Systemic Illness, Tick Born Illness, Tinea, Viral Exanthem - Diagnoses Provider Diagnoses: IMPETIGO Discharge - Discharge Plan Condition: Stable Disposition: HOME Prescriptions: Amoxicillin/Clavulanate TAB* [Augmentin TAB 875*] 875 mg PO BID #20 tab Mupirocin 2% OINT* [Bactroban 2 % Oint*] 1 applic TOPICAL BID #1 tube Patient Education Materials: Impetigo (ED) Forms: *Work Release Referrals: Jeovany Huang MD [Primary Care Provider] - Kristyn Tate [Medical Doctor] -
--- NOTE | 2017-06-21 21:50 | UC ---
Progress - Progress Note Progress Note: RESULTS POSITIVE FOR MRSA. ANTIBIOTIC CHANGED FROM AUGMENTIN TO BACTRIM. NURSE INFORMED PATIENT OF NEW DIAGNOSIS AND OF CHANGE IN ANTIBIOTIC REGIMEN.
== END 2017-06-21 13:38 | disposition home or self-care (01) ==
LOC: UCEAST 12:27
DX: L01.00 Impetigo, unspecified (principal); B95.62 Methicillin resistant Staphylococcus aureus infection as the cause of diseases classified elsewhere; R50.9 Fever, unspecified; Z88.8 Allergy status to other drugs, medicaments and biological substances; F12.90 Cannabis use, unspecified, uncomplicated; F17.210 Nicotine dependence, cigarettes, uncomplicated
CPT/HCPCS: 87070; 87077; 87186; 87205; 87640; 87641; 99212; G0463

== ENCOUNTER 2017-08-27 17:57 | Inpatient (IN) | payer MEDICARE, MEDICAID ==
[2017-08-27 18:42] LABS: Urine Bacteria Absent (Absent); Urine Bilirubin Negative (Negative); Urine Glucose Negative (Negative); Urine Nitrite Negative (Negative)
[2017-08-27 18:56] LABS: Benzodiazepine Urine Screen None Detected (None Detect)
--- NOTE | 2017-08-27 19:17 | ED ---
Psychiatric Complaint - HPI Summary HPI Summary: 46F presents with suicidal thoughts today. She states she has stated in her house for past 2 weeks and not left and states that her depressive thoughts have been increasing. She stopped her psych medication for the past two weeks. She states today she developed the thought to cut herself to commit suicide. She states she was about to do so when she remember her mother and called the condominium manager and came here. She has history of cutting. She use cocaine a couple days ago. She denies any other drug or ETOH use. ` - History Of Current Complaint Chief Complaint: EDMentalHealth Time Seen by Provider: 08/27/17 18:15 - Allergies/Home Medications Allergies/Adverse Reactions: Allergies Allergy/AdvReac Type Severity Reaction Status Date / Time Omeprazole [From Prilosec] Allergy Intermediate URINARY Verified 08/27/17 22:24 OBSTRUCTION Tramadol AdvReac Intermediate See Comment Verified 08/27/17 22:24 NICOTINE PATCH AdvReac Unknown Rash Uncoded 08/27/17 22:24 PMH/Surg Hx/FS Hx/Imm Hx Endocrine/Hematology History: Reports: Hx Thyroid Disease - h/o thyrotoxicosis Denies: Hx Diabetes Cardiovascular History: Denies: Hx Hypertension, Hx Pacemaker/ICD Respiratory History: Reports: Hx Asthma, Hx Chronic Bronchitis, Other Respiratory Problems/Disorders - 30 YR SMOKING HX GI History: Reports: Hx Gastroesophageal Reflux Disease Musculoskeletal History: Reports: Hx Arthritis, Hx Tendonitis - LEFT ACHILLES TENDONITIS, WEARS BRACE, MUCH BETTER, Other Musculoskeletal History - Chronic pain in left foot due to george bite years ago that has caused limp Sensory History: Denies: Hx Contacts or Glasses, Hx Hearing Aid Opthamlomology History: Denies: Hx Contacts or Glasses Neurological History: Reports: Other Neuro Impairments/Disorders - negative hx of withdrawl or seizure Psychiatric History: Reports: Hx Anxiety, Hx Attention Deficit Hyperactivity Disorder, Hx Depression, Hx Post Traumatic Stress Disorder, Hx Inpatient Treatment, Hx Community Mental Health Tx, Hx Suicide Attempt, Hx Substance Abuse - heroine, cocaine Denies: Hx Eating Disorder, Hx Panic Disorder, Hx Schizophrenia, Hx Bipolar Disorder, Hx of Violent Episodes Against Others, Other Psychiatric Issues/ Disorders - Surgical History Hx Anesthesia Reactions: No Infectious Disease History: No Infectious Disease History: Reports: Hx Hepatitis - Hepatitis C, Hx of Known/ Suspected MRSA - 06/21/17 ON FACE, DX AT [facility], TOOK ABX, OK NOW Denies: Hx Clostridium Difficile, Hx Human Immunodeficiency Virus (HIV), Traveled Outside the [place] in Last 30 Days - Family History Known Family History: Positive: None - REVIEWED & NONCONTRIBUTORY, Unknown Negative: Cardiac Disease, Diabetes - Social History Alcohol Use: Occasionally Alcohol Amount: 6-12 beers a day Hx Substance Use: Yes - reports polysubstance self-medication Substance Use Type: Reports: Cocaine, Excessive Caffeine, Heroin, Marijuana, Synthetic Drugs, Prescribed Substance Use Comment - Amount & Last Used: marijuana currently Hx Tobacco Use: Yes Smoking Status (MU): Current Every Day Smoker Type: Cigarettes Amount Used/How Often: half a pack a day in the last 30 days Length of Time of Smoking/Using Tobacco: 30 YRS Have You Smoked in the Last Year: Yes Review of Systems Negative: Fever Negative: Chest Pain Negative: Shortness Of Breath Positive: Depressed All Other Systems Reviewed And Are Negative: Yes Physical Exam Triage Information Reviewed: Yes Vital Signs On Initial Exam: Initial Vitals Temp Pulse Resp BP Pulse Ox 98.3 F 75 15 113/77 98 08/27/17 18:09 08/27/17 18:09 08/27/17 18:09 08/27/17 18:09 08/27/17 18:09 Vital Signs Reviewed: Yes Appearance: Positive: Well-Appearing Skin: Positive: Warm, Dry Head/Face: Positive: Normal Head/Face Inspection Eyes: Positive: Normal, Conjunctiva Clear Respiratory/Lung Sounds: Positive: Clear to Auscultation, Breath Sounds Present Cardiovascular: Positive: Normal, RRR Abdomen Description: Positive: Nontender, Soft Bowel Sounds: Positive: Present Musculoskeletal: Positive: Normal Neurological: Positive: Normal Psychiatric: Positive: Depressed - Sahil Coma Scale Coma Scale Total: 15 Diagnostics - Vital Signs Vital Signs Temp Pulse Resp BP Pulse Ox 08/27/17 18:09 98.3 F 75 15 113/77 98 - Laboratory Lab Results: Lab Results 08/27/17 08/27/17 Range/Units 18:20 18:20 Urine Color Yellow Urine Appearance Cloudy Urine pH 5.0 (5-9) Ur Specific [place] 1.024 (1.010-1.030) Urine Protein Negative (Negative) Urine Ketones Negative (Negative) Urine Blood 1+ H (Negative) Urine Nitrate Negative (Negative) Urine Bilirubin Negative (Negative) Urine Urobilinogen Negative (Negative) Ur Leukocyte Esterase Negative (Negative) Urine WBC (Auto) Trace(0-5/hpf) (Absent) Urine RBC (Auto) 1+(3-5/hpf) H (Absent) Ur Squamous Epith Cells Present H (Absent) Urine Bacteria Absent (Absent) Urine Glucose Negative (Negative) Urine Opiates Screen None detected (None Detect) Ur Barbiturates Screen None detected (None Detect) Ur Phencyclidine Scrn None detected (None Detect) Ur Amphetamines Screen None detected (None Detect) U Benzodiazepines Scrn None detected (None Detect) Urine Cocaine Screen Presumptive positive H (None Detect) U Cannabinoids Screen None detected (None Detect) Result Diagrams: 08/27/17 19:07 08/27/17 19:07 Lab Statement: Any lab studies that have been ordered have been reviewed, and results considered in the medical decision making process. Course/Dx - Course Course Of Treatment: 46F presents with suicidal thoughts today. She states she has stated in her house for past 2 weeks and not left and states that her depressive thoughts have been increasing. She states today she developed the thought to cut herself. She states she was about to do so when she remember her mother and called the condominium manager and came here. She has history of cutting. She states she has not been taking her medication for past 2 weeks. She use cocaine a couple days ago. She denies any other drug or ETOH use. labs shows cocaine. medically clear for [facility]. due to being no evaulator will discuss with dr bhatt. dr bhatt is going to admit patient. patient wants to be admitted. - Differential Dx/Clinical Impression Differential Diagnosis/HQI/PQRI: Positive: Anxiety, Depression, Suicidal Ideation Provider Diagnosis: Depression Discharge - Discharge Plan Condition: Stable Disposition: PSYCHIATRIC FACILITY-[facility]
[2017-08-27 19:31] LABS: Hematocrit 39 % (35-47); Hemoglobin 13.3 g/dl (12.0-16.0); Mean Corpuscular HGB Conc 34 g/dl (31-36); Mean Corpuscular Hemoglobin 29 pg (27-31); Mean Corpuscular Volume 84 fL (80-97); Mean Platelet Volume 8 um3 (7.4-10.4); Red Blood Count 4.66 10^6/ul (4.0-5.4); Red Cell Distribution Width 14 % (10.5-15); White Blood Count 8.1 10^3/ul (3.5-10.8)
[2017-08-27 19:33] LABS: Anion Gap 5 mmol/L (2-11); BUN/Creatinine Ratio 14.5 (8-20); Blood Urea Nitrogen 12 mg/dL (6-24); CO2 Carbon Dioxide 25 mmol/L (22-32); Chloride 108 mmol/L (101-111); EGFR Non-African American 74.7 (>60); Glucose 114 mg/dL (70-100); Potassium 3.4 mmol/L (3.5-5.0); Sodium 138 mmol/L (133-145)
[2017-08-27 19:34] LABS: ALT 7 U/L (7-52); AST 11 U/L (13-39); Albumin 3.8 g/dL (3.2-5.2); Alkaline Phosphatase 58 U/L (34-104); Calcium 8.9 mg/dL (8.6-10.3); Globulin 2.6 g/dL (2-4); Total Protein 6.4 g/dL (6.4-8.9)
[2017-08-27 19:57] LABS: Acetaminophen < 15 mcg/mL; Alcohol < 10 mg/dL (<10); Salicylate < 2.50 mg/dL (<30)
[2017-08-27 20:12] LABS: TSH (Thyroid Stimulating Horm) 0.25 mcIU/mL (0.34-5.60)
[2017-08-27 21:46] LABS: Free T4 0.96 ng/dL (0.61-1.12)
[2017-08-27] MEDS ORDERED: traZODone TAB* 100 MG ONE (22:25)
[2017-08-27] MEDS ORDERED: Mouth Piece, Nicotine* 1 EACH CARTRIDGE INH SCH (23:20)
[2017-08-27] MEDS ORDERED: Al Hydrox/Mg Hydrox/Simet LIQ* 30 ML UDC PO PRN (23:20)
[2017-08-28] MEDS: Montelukast Sodium TAB* 10 MG PO SCH (09:23)
[2017-08-28] MEDS: Vitamin THERAPEUTIC TAB PO SCH (09:23)
[2017-08-28] MEDS: Lurasidone(*) 60 MG TAB PO SCH (09:23)
[2017-08-28] MEDS: Cetirizine* 10 MG TAB PO SCH (09:23)
[2017-08-28] MEDS: Acetaminophen TAB* 325 MG PO PRN (09:26)
[2017-08-28] MEDS: Fluticasone NASAL SPRAY 50MCG* 16 gm SPRAY BTL BOTH NARES SCH (12:50)
[2017-08-28] MEDS: BuPROPion XL* 300 MG TAB.XL PO SCH (12:50)
[2017-08-28] MEDS: Venlafaxine EXT RELEASE CAP* 75 MG PO SCH (12:50)
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
[2017-08-28] MEDS: Ibuprofen TAB* 800 MG PO PRN (17:38)
[2017-08-28] MEDS: traZODone TAB* 100 MG PO SCH (20:30)
[2017-08-29] MEDS: Venlafaxine EXT RELEASE CAP* 75 MG PO SCH (08:31)
[2017-08-29] MEDS: Ibuprofen TAB* 800 MG PO PRN ×3 (08:31→20:58)
[2017-08-29] MEDS: Vitamin THERAPEUTIC TAB PO SCH (08:32)
[2017-08-29] MEDS: Montelukast Sodium TAB* 10 MG PO SCH (08:32)
[2017-08-29] MEDS: Cetirizine* 10 MG TAB PO SCH (08:32)
[2017-08-29] MEDS: Lurasidone(*) 60 MG TAB PO SCH (08:32)
[2017-08-29] MEDS: BuPROPion XL* 300 MG TAB.XL PO SCH (08:32)
[2017-08-29] MEDS: Nicotine Inhaler* 10 MG AMP INH PRN (08:32)
[2017-08-29] MEDS: Nicotine GUM* 2 MG PO PRN ×3 (08:32→17:18)
[2017-08-29] MEDS: Fluticasone NASAL SPRAY 50MCG* 16 gm SPRAY BTL BOTH NARES SCH (08:33)
--- NOTE | 2017-08-29 14:04 | PN ---
Subjective - Subjective Date of Service: 08/29/17 Service Type: 79270 Hosp care 15 min low complexity Subjective: Analytics Director met with patient due to assignment for coverage. She presents as dysphoric, cooperative and answers questions fully. She reports depressed mood and daily intrusive thoughts of suicide. She states she has thought of plans to overdose on medications, cut her wrists, and starve to . She endorses loneliness, decreased appetite. She states she tends to relapse on cocaine and marijuana when in a depressive episode. She denies heroin use for a couple months, prior to her knee surgery on 07/11/17. She states that due to recent surgery and need for pain control, she is not interested in use of naltrexone for substance use. She states intent to participate in IOP at [facility] and expects to utilize suboxone treatment. She also wants to be referred to [facility], as she had a positive experience with them in the past. Patient denies current relationship. She states that she is "fine with this." She states she would prefer to be discharged by the end of the week due to plans for [place]. Objective - Appearance Appearance: Well Developed/Nourished Dysmorphic Features: Yes Hygiene: Normal Grooming: Fairly Well Kept - Behavior Psychomotor Activities: Normal Exhibits Abnormal Movement: No - Attitude and Relatedness Attitude and Relatedness: Cooperative Eye Contact: Fair - Speech Quality: Unpressured Latencies: Normal Quantity: Appropriate - Mood Patient's Decription of Mood: "depressed" - Affect Observed Affect: Depressed Affect Consistent with: Dysphoria - Thought Process Patient's Thought Process: Coherent, Goal Directed Thought Content: Yes Passive Wish, Yes Suicidal Planning, No Homicidal Ideation, No Paranoid Ideation - Sensorium Experiencing Hallucinations: No, Sensorium is Clear Type of Hallucinations: Visual: No, Auditory: No, Command: No - Level of Consciousness Level of Consciousness: Alert Orientation: Yes Intact, Yes Orientated to Time, Yes Orientated to Place, Yes Orientated to Person - Impulse Control Impulse Control: Tenuous - Insight and Judgement Insight and Judgement: Fair - Group Participation Particating in Group Activities: Yes - Medication Management Medication Management Adherence: Yes Assessment - Assessment Merits Inpatient Hospitalization: For Immediate Safety, For Stabilization, For Discharge Planning Inpatient DSM-IV Dx: cocaine-induced mood d/o; PTSD by hx; cannabis use d/o; tobacco use d/o; borderline personality d/o Clinical Impression: 46yo white female, single, lives alone. She presented to ED with c/o depressed mood, SI with plans. She had not been actively participating in outpatient treatment or medication adherent. She engaged in cocaine and marijuana use to overcome mental health symptoms. She merits hospitalization for immediate safety and stabilization. Plan - Plan Treatment Plan: Name: EDD LOVING Birthdate: 1970 [id number] continue acute intensive psychiatric treatment. titrate effexor and continue outpatient medications. monitor for mood and thought content. patient denies offer of naltrexone, an FDA-approved medication for alcohol and substance use d/ o. Continued Medication Management: Different Medication Medications: Current Medications Acetaminophen (Tylenol Tab*) 650 mg PO Q4H PRN PRN Reason: PAIN or TEMP > 101 F Last Admin: 08/28/17 09:26 Dose: 650 mg Al Hydrox/Mg Hydrox/Simethicone (Maalox Plus*) 30 ml PO Q4H PRN PRN Reason: INDIGESTION Bupropion HCl (Bupropion Xl*) 300 mg PO DAILY [facility] PRN Reason: Protocol Last Admin: 08/29/17 08:32 Dose: 300 mg Cetirizine HCl (Zyrtec*) 10 mg PO DAILY [facility] Last Admin: 08/29/17 08:32 Dose: 10 mg Device (Nicotine Mouth Piece*) 1 each INH .CARTRIDGE [facility] Last Admin: 08/29/17 08:35 Dose: 1 each Fluticasone Propionate (Flonase Nasal [place] 50mcg*) 2 spray BOTH NARES DAILY [facility] Last Admin: 08/29/17 08:33 Dose: 2 spray Ibuprofen (Motrin Tab*) 600 mg PO Q6H PRN PRN Reason: PAIN Lurasidone HCl (Latuda) 60 mg PO DAILY@1700 [facility] Montelukast Sodium (Singulair Tab*) 10 mg PO DAILY [facility] Last Admin: 08/29/17 08:32 Dose: 10 mg Multivitamins (Theragran Tab*) 1 tab PO DAILY [facility] Last Admin: 08/29/17 08:32 Dose: 1 tab Nicotine (Nicotine Inhaler*) 10 mg INH Q2H PRN PRN Reason: CRAVING Last Admin: 08/29/17 08:32 Dose: 10 mg Nicotine Polacrilex (Nicotine Gum*) 2 mg PO Q2H PRN PRN Reason: CRAVING Last Admin: 08/29/17 08:32 Dose: 2 mg Trazodone HCl (Desyrel Tab*) 300 mg PO BEDTIME [facility] Last Admin: 08/28/17 20:30 Dose: 300 mg Venlafaxine HCl (Effexor Xr Cap*) 75 mg PO DAILY [facility] Last Admin: 08/29/17 08:31 Dose: 75 mg - Discharge Plan Discharge Plan: Outpatient Follow Up Outpatient Program: [facility]
[2017-08-29] MEDS: traZODone TAB* 100 MG PO SCH (20:56)
[2017-08-30] MEDS: Nicotine GUM* 2 MG PO PRN ×3 (07:21→16:22)
[2017-08-30] MEDS: Nicotine Inhaler* 10 MG AMP INH PRN ×4 (07:21→16:22)
[2017-08-30] MEDS: BuPROPion XL* 300 MG TAB.XL PO SCH (08:53)
[2017-08-30] MEDS: Montelukast Sodium TAB* 10 MG PO SCH (08:53)
[2017-08-30] MEDS: Venlafaxine EXT RELEASE CAP* 75 MG PO SCH (08:53)
[2017-08-30] MEDS: Cetirizine* 10 MG TAB PO SCH (08:53)
[2017-08-30] MEDS: Vitamin THERAPEUTIC TAB PO SCH (08:53)
[2017-08-30] MEDS: Fluticasone NASAL SPRAY 50MCG* 16 gm SPRAY BTL BOTH NARES SCH (08:53)
--- NOTE | 2017-08-30 13:26 | PN ---
Subjective - Subjective Date of Service: 08/30/17 Service Type: 84254 Hosp care 15 min low complexity Subjective: Patient has been inconsistent in her reports about substance use. She has been intermittently attending groups and not attending them fully. She is observed to be seclusive to male peer with whom she is friends outside of hospital. Patient was engaging in verbal altercation with another female patient this morning. Head Insulation Board Saw Operator spoke with patient in regards to above and suggested to her to make efforts to be honest with providers and herself, to fully engage in programming and to avoid gossip or negative talk with others. Patient agreed and states "I don't want to be that person." Patient reports motivation to abstain from substances. She states she spoke with drug court rep today and meets daily with her AA sponsor. Objective - Appearance Appearance: Well Developed/Nourished Dysmorphic Features: Yes Hygiene: Normal Grooming: Disheveled - Behavior Psychomotor Activities: Normal Exhibits Abnormal Movement: No - Attitude and Relatedness Attitude and Relatedness: Irritable Eye Contact: Fair - Speech Quality: Unpressured Latencies: Normal Quantity: Appropriate - Mood Patient's Decription of Mood: "Good" - Affect Observed Affect: Good Affect Consistent with: Euthymia - Thought Process Patient's Thought Process: Coherent, Goal Directed Thought Content: Yes Passive Wish, No Suicidal Planning, No Homicidal Ideation, No Paranoid Ideation - Sensorium Experiencing Hallucinations: No, Sensorium is Clear Type of Hallucinations: Visual: No, Auditory: No, Command: No - Level of Consciousness Level of Consciousness: Alert Orientation: Yes Intact, Yes Orientated to Time, Yes Orientated to Place, Yes Orientated to Person - Impulse Control Impulse Control: Tenuous - Insight and Judgement Insight and Judgement: Fair - Group Participation Particating in Group Activities: No - Medication Management Medication Management Adherence: Yes Assessment - Assessment Merits Inpatient Hospitalization: For Immediate Safety, For Stabilization, For Discharge Planning Inpatient DSM-IV Dx: cocaine-induced mood d/o; PTSD by hx; cannabis use d/o; tobacco use d/o; borderline personality d/o Clinical Impression: 46yo white female, single, lives alone. She presented to ED with c/o depressed mood, SI with plans. She had not been actively participating in outpatient treatment or medication adherent. She engaged in cocaine and marijuana use to overcome mental health symptoms. She merits hospitalization for immediate safety and stabilization. Plan - Plan Treatment Plan: Name: EDD LOVING Birthdate: 1970 [id number] continue acute intensive psychiatric treatment. titrate effexor and continue outpatient medications. monitor for mood and thought content. patient denies offer of naltrexone, an FDA-approved medication for alcohol and substance use d/ o. Continued Medication Management: Different Medication Medications: Current Medications Acetaminophen (Tylenol Tab*) 650 mg PO Q4H PRN PRN Reason: PAIN or TEMP > 101 F Last Admin: 08/28/17 09:26 Dose: 650 mg Al Hydrox/Mg Hydrox/Simethicone (Maalox Plus*) 30 ml PO Q4H PRN PRN Reason: INDIGESTION Last Admin: 08/30/17 11:41 Dose: 30 ml Bupropion HCl (Bupropion Xl*) 300 mg PO DAILY [facility] PRN Reason: Protocol Last Admin: 08/30/17 08:53 Dose: 300 mg Cetirizine HCl (Zyrtec*) 10 mg PO DAILY [facility] Last Admin: 08/30/17 08:53 Dose: 10 mg Device (Nicotine Mouth Piece*) 1 each INH .CARTRIDGE [facility] Last Admin: 08/29/17 08:35 Dose: 1 each Fluticasone Propionate (Flonase Nasal [place] 50mcg*) 2 spray BOTH NARES DAILY [facility] Last Admin: 08/30/17 08:53 Dose: 2 spray Ibuprofen (Motrin Tab*) 600 mg PO Q6H PRN PRN Reason: PAIN Last Admin: 08/29/17 20:58 Dose: 600 mg Lurasidone HCl (Latuda) 60 mg PO DAILY@1700 [facility] Montelukast Sodium (Singulair Tab*) 10 mg PO DAILY [facility] Last Admin: 08/30/17 08:53 Dose: 10 mg Multivitamins (Theragran Tab*) 1 tab PO DAILY [facility] Last Admin: 08/30/17 08:53 Dose: 1 tab Nicotine (Nicotine Inhaler*) 10 mg INH Q2H PRN PRN Reason: CRAVING Last Admin: 08/30/17 10:13 Dose: 10 mg Nicotine Polacrilex (Nicotine Gum*) 2 mg PO Q2H PRN PRN Reason: CRAVING Last Admin: 08/30/17 10:13 Dose: 2 mg Trazodone HCl (Desyrel Tab*) 300 mg PO BEDTIME [facility] Last Admin: 08/29/17 20:56 Dose: 300 mg Venlafaxine HCl (Effexor Xr Cap*) 75 mg PO DAILY [facility] Last Admin: 08/30/17 08:53 Dose: 75 mg - Discharge Plan Discharge Plan: Outpatient Follow Up Outpatient Program: [facility]
[2017-08-30] MEDS: Acetaminophen TAB* 325 MG PO PRN (14:02)
[2017-08-30] MEDS: Lurasidone(*) 60 MG TAB PO SCH (16:21)
[2017-08-30] MEDS: traZODone TAB* 100 MG PO SCH ×2 (21:56→23:55)
[2017-08-30] MEDS ORDERED: Ibuprofen TAB* 600 MG ONE (23:54)
[2017-08-30] MEDS: Ibuprofen TAB* 800 MG PO PRN (23:55)
[2017-08-31] MEDS: Venlafaxine EXT RELEASE CAP* 75 MG PO SCH (08:48)
[2017-08-31] MEDS: Montelukast Sodium TAB* 10 MG PO SCH (08:48)
[2017-08-31] MEDS: Cetirizine* 10 MG TAB PO SCH (08:48)
[2017-08-31] MEDS: Vitamin THERAPEUTIC TAB PO SCH (08:48)
[2017-08-31] MEDS: Nicotine GUM* 2 MG PO PRN ×5 (08:48→18:57)
[2017-08-31] MEDS: Nicotine Inhaler* 10 MG AMP INH PRN ×5 (08:48→18:57)
[2017-08-31] MEDS: Ibuprofen TAB* 800 MG PO PRN ×2 (08:49→15:58)
[2017-08-31] MEDS: Fluticasone NASAL SPRAY 50MCG* 16 gm SPRAY BTL BOTH NARES SCH (08:50)
[2017-08-31] MEDS: Acetaminophen TAB* 325 MG PO PRN ×2 (11:12→20:03)
[2017-08-31] MEDS: BuPROPion XL* 300 MG TAB.XL PO SCH (12:19)
[2017-08-31] MEDS: Gabapentin CAP(*) 300 MG PO PRN (15:57)
--- NOTE | 2017-08-31 17:25 | PN ---
Subjective - Subjective Service Type: 34889 Hosp care 15 min low complexity Subjective: Patient was notified of drug court recommendation to be referred to inpatient substance use treatment. She is agreeable and states preference for [facility] in [place]. Patient reports increase in anxiety due to thoughts of going to inpatient substance use treatment and elevated activity on unit. Patient agrees to use of gabapentin and increase in venlafaxine. She denies offer of naltrexone due to past side effect of dizziness. She states she is attending groups and trying to be a positive member of unit. She admits she is easily influenced by negativity. She is also encouraged to use her peer interactions to create a list of distracting techniques/coping skills for anxiety. Objective - Appearance Appearance: Thin Framed Dysmorphic Features: No Hygiene: Normal Grooming: Fairly Well Kept - Behavior Psychomotor Activities: Normal Exhibits Abnormal Movement: No - Attitude and Relatedness Attitude and Relatedness: Cooperative Eye Contact: Good - Speech Quality: Unpressured Latencies: Normal Quantity: Appropriate - Mood Patient's Decription of Mood: "Anxious" - Affect Observed Affect: Good Affect Consistent with: Euthymia - Thought Process Patient's Thought Process: Coherent, Goal Directed Thought Content: No Passive Wish, No Suicidal Planning, No Homicidal Ideation, No Paranoid Ideation - Sensorium Experiencing Hallucinations: No, Sensorium is Clear Type of Hallucinations: Visual: No, Auditory: No, Command: No - Level of Consciousness Level of Consciousness: Alert Orientation: Yes Intact, Yes Orientated to Time, Yes Orientated to Place, Yes Orientated to Person - Impulse Control Impulse Control: Tenuous - Insight and Judgement Insight and Judgement: Good - Group Participation Particating in Group Activities: Yes - Medication Management Medication Management Adherence: Yes Assessment - Assessment Merits Inpatient Hospitalization: For Immediate Safety, For Stabilization, For Discharge Planning, Pending Safe DC Plan Inpatient DSM-IV Dx: cocaine-induced mood d/o; PTSD by hx; cannabis use d/o; tobacco use d/o; borderline personality d/o Clinical Impression: 46yo white female, single, lives alone. She presented to ED with c/o depressed mood, SI with plans. She had not been actively participating in outpatient treatment or medication adherent. She engaged in cocaine and marijuana use to overcome mental health symptoms. She merits hospitalization for immediate safety and stabilization. She is mandated by treatment court to attend inpatient substance use treatment. Plan - Plan Treatment Plan: Name: EDD LOVING Birthdate: 1970 [id number] continue acute intensive psychiatric treatment. titrate effexor and continue outpatient medications. monitor for mood and thought content. patient denies offer of naltrexone, an FDA-approved medication for alcohol and substance use d/ o. Referrals to substance use treatment pending. Continued Medication Management: Different Medication Medications: Current Medications Acetaminophen (Tylenol Tab*) 650 mg PO Q4H PRN PRN Reason: PAIN or TEMP > 101 F Last Admin: 08/31/17 11:12 Dose: 650 mg Al Hydrox/Mg Hydrox/Simethicone (Maalox Plus*) 30 ml PO Q4H PRN PRN Reason: INDIGESTION Last Admin: 08/30/17 11:41 Dose: 30 ml Bupropion HCl (Bupropion Xl*) 300 mg PO DAILY [facility] PRN Reason: Protocol Last Admin: 08/31/17 12:19 Dose: 300 mg Cetirizine HCl (Zyrtec*) 10 mg PO DAILY [facility] Last Admin: 08/31/17 08:48 Dose: 10 mg Device (Nicotine Mouth Piece*) 1 each INH .CARTRIDGE [facility] Last Admin: 08/29/17 08:35 Dose: 1 each Fluticasone Propionate (Flonase Nasal [place] 50mcg*) 2 spray BOTH NARES DAILY [facility] Last Admin: 08/31/17 08:50 Dose: 2 spray Gabapentin (Neurontin Cap(*)) 300 mg PO BID PRN PRN Reason: AGITATION/ANXIETY Last Admin: 08/31/17 15:57 Dose: 300 mg Ibuprofen (Motrin Tab*) 600 mg PO Q6H PRN PRN Reason: PAIN Last Admin: 08/31/17 15:58 Dose: 600 mg Lurasidone HCl (Latuda) 60 mg PO DAILY@1700 [facility] Last Admin: 08/30/17 16:21 Dose: 60 mg Montelukast Sodium (Singulair Tab*) 10 mg PO DAILY [facility] Last Admin: 08/31/17 08:48 Dose: 10 mg Multivitamins (Theragran Tab*) 1 tab PO DAILY [facility] Last Admin: 08/31/17 08:48 Dose: 1 tab Nicotine (Nicotine Inhaler*) 10 mg INH Q2H PRN PRN Reason: CRAVING Last Admin: 08/31/17 16:07 Dose: 10 mg Nicotine Polacrilex (Nicotine Gum*) 2 mg PO Q2H PRN PRN Reason: CRAVING Last Admin: 08/31/17 16:07 Dose: 2 mg Pantoprazole Sodium (Protonix Tab (Nf)) 40 mg PO DAILY@0600 [facility] Trazodone HCl (Desyrel Tab*) 300 mg PO BEDTIME [facility] Last Admin: 08/30/17 23:55 Dose: 300 mg Venlafaxine HCl (Effexor Xr Cap*) 75 mg PO DAILY [facility] Venlafaxine HCl (Effexor Xr Cap*) 37.5 mg PO DAILY [facility] - Discharge Plan Discharge Plan: Drug/Alcohol Rehab
[2017-08-31] MEDS: Lurasidone(*) 60 MG TAB PO SCH (17:30)
[2017-08-31] MEDS: traZODone TAB* 100 MG PO SCH (20:04)
[2017-09-01] MEDS: Nicotine Inhaler* 10 MG AMP INH PRN ×5 (08:24→18:43)
[2017-09-01] MEDS: Gabapentin CAP(*) 300 MG PO PRN ×2 (08:24→21:10)
[2017-09-01] MEDS: Cetirizine* 10 MG TAB PO SCH (08:25)
[2017-09-01] MEDS: Venlafaxine EXT RELEASE CAP* 75 MG PO SCH (08:25)
[2017-09-01] MEDS: Vitamin THERAPEUTIC TAB PO SCH (08:25)
[2017-09-01] MEDS: Montelukast Sodium TAB* 10 MG PO SCH (08:25)
[2017-09-01] MEDS: Venlafaxine EXT RELEASE CAP* 37.5 MG PO SCH (08:25)
[2017-09-01] MEDS: Nicotine GUM* 2 MG PO PRN ×5 (08:25→18:43)
[2017-09-01] MEDS: CMCS: Pantoprazole TAB (NF) 40 MG TAB PO SCH (08:26)
[2017-09-01] MEDS: BuPROPion XL* 300 MG TAB.XL PO SCH (08:27)
[2017-09-01] MEDS: Fluticasone NASAL SPRAY 50MCG* 16 gm SPRAY BTL BOTH NARES SCH (08:28)
[2017-09-01] MEDS ORDERED: Venlafaxine EXT RELEASE CAP* 75 MG PO SCH (09:00)
[2017-09-01] MEDS: Ibuprofen TAB* 600 MG PO PRN ×2 (09:44→16:28)
--- NOTE | 2017-09-01 11:36 | PN ---
MHU: Group Therapy Note - Service Type Service Type: 57170 Group Psychotherapy - Cognitive Behavioral Group Therapy ( CBT):Patient was attentive and participatory in CBT programming this morning, and remained in good behavioral control. Patient expressed positive insights regarding relevant treatment interventions and goals.
[2017-09-01] MEDS: Acetaminophen TAB* 325 MG PO PRN ×2 (14:09→18:45)
--- NOTE | 2017-09-01 14:42 | PN ---
Subjective - Subjective Service Type: 11373 Hosp care 15 min low complexity Subjective: Patient reports some efficacy with use of gabapentin for anxiety and knee pain. She requests increase from BID to TID. Fieldwork Coordinator requested that patient continue to improve her use of coping skills that are not pharmacology based. Parents visited over lunch hour and narrative writer attempted to meet with them. Patient interrupted and requested that her parents not be informed of referral to substance use treatment. Patient has noted to be present in groups and milieu. She spends the majority of free time with select male, with whom she is friends in the community. They are noted to engage in non-productive conversation at times. During groups, she and her friend are appropriate and contribute positively. Objective - Appearance Appearance: Thin Framed Dysmorphic Features: No Hygiene: Normal Grooming: Fairly Well Kept - Behavior Psychomotor Activities: Normal Exhibits Abnormal Movement: No - Attitude and Relatedness Attitude and Relatedness: Cooperative Eye Contact: Good - Speech Quality: Unpressured Latencies: Normal Quantity: Terse - Mood Patient's Decription of Mood: "Anxious" - Affect Observed Affect: Good Affect Consistent with: Euthymia - Thought Process Patient's Thought Process: Coherent, Goal Directed Thought Content: No Passive Wish, No Suicidal Planning, No Homicidal Ideation, No Paranoid Ideation - Sensorium Experiencing Hallucinations: No, Sensorium is Clear Type of Hallucinations: Visual: No, Auditory: No, Command: No - Level of Consciousness Level of Consciousness: Alert Orientation: Yes Intact, Yes Orientated to Time, Yes Orientated to Place, Yes Orientated to Person - Impulse Control Impulse Control: Tenuous - Insight and Judgement Insight and Judgement: Fair - Group Participation Particating in Group Activities: Yes - Medication Management Medication Management Adherence: Yes Assessment - Assessment Merits Inpatient Hospitalization: For Immediate Safety, For Stabilization, Consolidate Improvements Inpatient DSM-IV Dx: cocaine-induced mood d/o; PTSD by hx; cannabis use d/o; tobacco use d/o; borderline personality d/o Clinical Impression: 46yo white female, single, lives alone. She presented to ED with c/o depressed mood, SI with plans. She had not been actively participating in outpatient treatment or medication adherent. She engaged in cocaine and marijuana use to overcome mental health symptoms. She merits hospitalization for immediate safety and stabilization. She is mandated by treatment court to attend inpatient substance use treatment. Plan - Plan Treatment Plan: Name: EDD LOVING Birthdate: 1970 [id number] continue acute intensive psychiatric treatment. titrate effexor and continue outpatient medications. monitor for mood and thought content. patient denies offer of naltrexone, an FDA-approved medication for alcohol and substance use d/ o. Referrals to substance use treatment accepted at [facility] in [place]. Patient to be discharged to [facility] tomorrow. Continued Medication Management: Different Medication Medications: Current Medications Acetaminophen (Tylenol Tab*) 650 mg PO Q4H PRN PRN Reason: PAIN or TEMP > 101 F Last Admin: 09/01/17 14:09 Dose: 650 mg Al Hydrox/Mg Hydrox/Simethicone (Maalox Plus*) 30 ml PO Q4H PRN PRN Reason: INDIGESTION Last Admin: 08/30/17 11:41 Dose: 30 ml Bupropion HCl (Bupropion Xl*) 300 mg PO DAILY [facility] PRN Reason: Protocol Last Admin: 09/01/17 08:27 Dose: 300 mg Cetirizine HCl (Zyrtec*) 10 mg PO DAILY [facility] Last Admin: 09/01/17 08:25 Dose: 10 mg Device (Nicotine Mouth Piece*) 1 each INH .CARTRIDGE [facility] Last Admin: 08/29/17 08:35 Dose: 1 each Fluticasone Propionate (Flonase Nasal Desmet 50mcg*) 2 spray BOTH NARES DAILY [facility] Last Admin: 09/01/17 08:28 Dose: 2 spray Gabapentin (Neurontin Cap(*)) 300 mg PO BID PRN PRN Reason: AGITATION/ANXIETY Last Admin: 09/01/17 08:24 Dose: 300 mg Ibuprofen (Motrin Tab*) 600 mg PO Q6H PRN PRN Reason: PAIN Last Admin: 09/01/17 09:44 Dose: 600 mg Lurasidone HCl (Latuda) 60 mg PO DAILY@1700 [facility] Last Admin: 08/31/17 17:30 Dose: 60 mg Montelukast Sodium (Singulair Tab*) 10 mg PO DAILY [facility] Last Admin: 09/01/17 08:25 Dose: 10 mg Multivitamins (Theragran Tab*) 1 tab PO DAILY [facility] Last Admin: 09/01/17 08:25 Dose: 1 tab Nicotine (Nicotine Inhaler*) 10 mg INH Q2H PRN PRN Reason: CRAVING Last Admin: 09/01/17 14:09 Dose: 10 mg Nicotine Polacrilex (Nicotine Gum*) 2 mg PO Q2H PRN PRN Reason: CRAVING Last Admin: 09/01/17 14:09 Dose: 2 mg Pantoprazole Sodium (Protonix Tab (Nf)) 40 mg PO DAILY@0600 [facility] Last Admin: 09/01/17 08:26 Dose: 40 mg Trazodone HCl (Desyrel Tab*) 300 mg PO BEDTIME [facility] Last Admin: 08/31/17 20:04 Dose: 300 mg Venlafaxine HCl (Effexor Xr Cap*) 75 mg PO DAILY [facility] Last Admin: 09/01/17 08:25 Dose: 75 mg Venlafaxine HCl (Effexor Xr Cap*) 37.5 mg PO DAILY [facility] Last Admin: 09/01/17 08:25 Dose: 37.5 mg - Discharge Plan Discharge Plan: Drug/Alcohol Rehab
--- NOTE | 2017-09-01 16:23 | PN ---
MHU: Group Therapy Note - Service Type Service Type: [id number] Group Psychotherapy - Medication Education Group: Patient was attentive and participatory in group, and remained in good behavioral control. Patient expressed positive insights regarding relevant treatment interventions. Patient stated understanding of material discussed and had appropriate questions.
[2017-09-01] MEDS: Lurasidone(*) 60 MG TAB PO SCH (17:51)
[2017-09-01] MEDS: traZODone TAB* 100 MG PO SCH (21:10)
[2017-09-02] MEDS: Nicotine Inhaler* 10 MG AMP INH PRN ×2 (07:14→09:15)
[2017-09-02] MEDS: CMCS: Pantoprazole TAB (NF) 40 MG TAB PO SCH (07:14)
[2017-09-02] MEDS: Nicotine GUM* 2 MG PO PRN ×2 (07:14→09:15)
[2017-09-02 08:13] VITALS: BP 93/66
[2017-09-02] MEDS: Venlafaxine EXT RELEASE CAP* 75 MG PO SCH (08:26)
[2017-09-02] MEDS: Venlafaxine EXT RELEASE CAP* 37.5 MG PO SCH (08:26)
[2017-09-02] MEDS: BuPROPion XL* 300 MG TAB.XL PO SCH (08:26)
[2017-09-02] MEDS: Gabapentin CAP(*) 300 MG PO PRN (08:27)
[2017-09-02] MEDS: Fluticasone NASAL SPRAY 50MCG* 16 gm SPRAY BTL BOTH NARES SCH (08:27)
[2017-09-02] MEDS: Montelukast Sodium TAB* 10 MG PO SCH (08:27)
[2017-09-02] MEDS: Vitamin THERAPEUTIC TAB PO SCH (08:27)
[2017-09-02] MEDS: Cetirizine* 10 MG TAB PO SCH (08:27)
[2017-09-02] MEDS: Ibuprofen TAB* 600 MG PO PRN (09:15)
--- NOTE | 2017-09-03 00:19 | DS ---
CC: Dr. Jeovany Huang DISCHARGE SUMMARY: DATE OF ADMISSION: 08/27/17 DATE OF DISCHARGE: 09/02/17 SUPERVISING PSYCHIATRIST: Dr. Prem Lee. JUSTIFICATION FOR ADMISSION: The patient presented to the ED with suicidal ideation and recent subst ance use and she was in need of 24-hour supervision. DISCHARGE DIAGNOSES: 1. Major depressive disorder. 2. Opioid use disorder. 3. Cocaine use disorder. 4. Alcohol use disorder. 5. Tobacco use disorder. 6. Cluster B personality disorder. 7. Posttraumatic stress disorder by history. CONDITION AT TIME OF DISCHARGE: Improved. The patient is euthymic with congruent affect. She repor ts willingness to be discharged to [facility] substance use treatment in [place]. The patient reports m ild anxiety in regards to this plan. She reports hopefulness that being court mandated will help her follow through on treatment. The patient has been in behavioral control and safe on all checks. She denies SI, HI, or . She has been medically and psychiatrically assessed to be stable to attend bstance use treatment. MENTAL STATUS EXAM: At time of discharge, the patient is a middle-aged white female with brownish fleming ir, wearing her own clothing. She is adequately groomed and appeared to be older than stated age. S he is calm, cooperative, answers questions fully. She is generally pleasant to interact with on one- to-one basis. She is alert and oriented x3. Her eye contact is good. Her speech has normal rate, t one, and volume. Her mood is euthymic with mild anxiousness and congruent affect. Her thought proce ss is linear and goal directed. Thought content is negative for SI, HI, or . There is no evidence of psychotic thought process. Insight is fair. Judgment is fair. Impulse control is poor. Her fun d of knowledge is adequate. DISCHARGE INSTRUCTIONS: Given to the patient: A. Medications: 1. Acetaminophen 650 mg p.o. q.4 hours p.r.n. pain or fever. 2. Maalox 30 mg p.o. q.4 hours p.r.n. indigestion. 3. Bupropion XL 300 mg p.o. daily. 4. Cetirizine 10 mg p.o. daily. 5. Nicotine inhaler q.2 hours p.r.n. craving. 6. Flonase nasal spray 50 mcg 2 sprays both nares daily. 7. Gabapentin 300 mg p.o. b.i.d. p.r.n. agitation/anxiety. 8. Ibuprofen 600 mg p.o. q.6 hours p.r.n. pain. 9. Latuda 60 mg p.o. daily at 1700 with at least 350 calories. 10. Singulair 10 mg p.o. daily. 11. Multivitamins 1 p.o. daily. 12. Nicotine gum 2 mg p.o. q.2 hours p.r.n. craving. 13. Protonix 40 mg p.o. daily at 0600. 14. Trazodone 300 mg p.o. q.h.s. 15. Venlafaxine 75 mg p.o. daily and venlafaxine 37.5 mg p.o. daily. The above medications will be continued at [facility]. B. Diet: Regular. C. Activities: Ambulation as tolerated. Tobacco cessation assistance has been provided and there a re no pending labs or diagnostic studies at time of discharge. D. Followup care: The patient will follow up with her primary care provider, Dr. Jeovany Huang, up on return from treatment as needed. The patient is being discharged to inpatient substance use treat ment at [facility] in [place]. E. Substance abuse followup: The patient was referred to [facility] in [place] for substance abuse gustavo atment. The patient refused offer of [facility] approved medications for substance use disorder. HOSPITAL COURSE: Part-B: Psychiatric treatment rendered: The patient is admitted to adult behavior al services unit on voluntary status. Her code status is full. She was placed on 15-minute checks fo r safety and her outpatient medication regimen was initially continued. She agreed to a trial of gabriel lafaxine XR and tolerated this well, dose was increased from 75 initially to 112.5 mg. The patient w as encouraged to participate in supportive milieu, individual sessions with staff, and psychoeducatio nal groups. She was familiar with the unit due to prior admissions. Laboratory data obtained in the hospital: CBC was grossly unremarkable. Chemistry with slightly low potassium, likely due to poor diet and substance use. Urinalysis was positive for 1+ blood and epit helial cells. The patient denied symptoms of urinary tract infection. Toxicology was negative for s alicylates, acetaminophen, or alcohol. Her urine drug screen was positive for cocaine. The patient was superficially cooperative with staff and treatment team. She was easily irritable an d endorsed much seeming guilt over recent substance use. She was encouraged to be positive influence on fellow peers as she was noted to make derogatory comments. The patient had a close friend, who i s coincidentally admitted to the unit and they spent much time together. Staff expressed concern to her due to her history of using substances with him. The patient reported she has also had periods o f sobriety along with this friend. The patient was strongly encouraged to participate in groups in a n appropriate manner and she attempted to do so. She benefited from daily reminders to engage in douglas ropriate manner. The patient stated she was planning to return to intensive [facility] [place] and also had wishes to return to [facility] Care Coordination due to prior success with an agency. Social Work coordinated with Yuki' probation and treatment court providers giovani ramírez notified that the patient will be court mandated to inpatient treatment. Social Work and automobile and property underwriter palmira nformed Yuki of this information and she was agreeable. She expressed desire to be referred to [facility] in [place] due to prior experience. The patient was safe on all checks and decreased to q.30-minut e observation and allowed staff pass. She is denying suicidal ideation or passive wish. She h ad visitors by her AA sponsor and her parents. The patient reported increase in anxiety due to plan to go to substance use treatment and milieu activity. Steeple Jack agreed to gabapentin 300 mg b.i.d. p.r. n. anxiety. The following day, the patient asked for this to be increased to 3 times a day and write michel declined encouraging the patient to utilize non-substance or prescription methods to treat emotions . The patient was notified of available bed-day for today, 09/02/17, and she was in agreement. She was given discharge instructions by nursing staff and was cooperative. She was escorted to [employer] taxi transport by staff. She was escorted by staff to the main entrance of the hospital to utilize [employer] for transportation to [facility]. GILBERTO HOGAN, CORE LAYING MACHINE OPERATOR [id number]/[facility] #: [id number]
== END 2017-09-02 10:20 | DRG 881 ==
LOC: ED 17:57 → BSU 22:02
PROVIDERS: ADMIT Psychiatry & Neurology Psychiatry; ATTEND Psychiatry & Neurology Psychiatry
PROC: GZHZZZZ Group Psychotherapy (ICD-10-PCS; principal; 2017-09-01)
DX: F32.9 Major depressive disorder, single episode, unspecified (principal); R45.851 Suicidal ideations; F43.10 Post-traumatic stress disorder, unspecified; F60.89 Other specific personality disorders; Z62.810 Personal history of physical and sexual abuse in childhood; J45.909 Unspecified asthma, uncomplicated; K21.9 Gastro-esophageal reflux disease without esophagitis; B18.2 Chronic viral hepatitis C; Z96.651 Presence of right artificial knee joint; G89.29 Other chronic pain; M19.90 Unspecified osteoarthritis, unspecified site; F90.9 Attention-deficit hyperactivity disorder, unspecified type; F17.210 Nicotine dependence, cigarettes, uncomplicated; F14.14 Cocaine abuse with cocaine-induced mood disorder; F12.10 Cannabis abuse, uncomplicated; Z88.6 Allergy status to analgesic agent; Z88.8 Allergy status to other drugs, medicaments and biological substances; Z81.8 Family history of other mental and behavioral disorders; Z91.5 Personal history of self-harm; Z72.89 Other problems related to lifestyle
CPT/HCPCS: 36415; 80053; 80307; 80320; 80329; 81003; 81015; 84439; 84443; 85025; 90853; 99222; 99231; 99238; A9270-GY; G0480

== ENCOUNTER 2018-01-02 13:09 | Inpatient (IN) | payer MEDICARE, MEDICAID ==
[2018-01-02] MEDS ORDERED: LORazepam TAB(*) 1 MG PO ONE ×2 (13:31→17:34)
[2018-01-02 13:54] LABS: Urine Appearance Cloudy; Urine Blood Negative (Negative); Urine Color Yellow; Urine Ketones Negative (Negative); Urine Protein 1+(30 mg/dL) (Negative); Urine Specific Gravity 1.017 (1.010-1.030); Urine Urobilinogen Negative (Negative)
[2018-01-02 14:00] LABS: ABS Basophils 0.1 10^3/ul (0-0.2); ABS Eosinophils 0.1 10^3/ul (0-0.6); ABS Lymphocytes 2.3 10^3/ul (1.0-4.8); ABS Monocytes 0.7 10^3/ul (0-0.8); ABS Neutrophils 4.5 10^3/ul (1.5-7.7); ABS Nucleated RBC 0 10^3/ul; Eosinophil % 0.9 % (0-6); Hematocrit 39 % (35-47); Hemoglobin 13.7 g/dl (12.0-16.0); Lymphocyte % 30.2 % (25-47); Mean Corpuscular HGB Conc 35 g/dl (31-36); Mean Corpuscular Hemoglobin 30 pg (27-31); Mean Corpuscular Volume 87 fL (80-97); Nucleated Red Blood Cells % 0.1; Platelet Count 220 10^3/ul (150-450); Red Blood Count 4.52 10^6/ul (4.0-5.4); Red Cell Distribution Width 14 % (10.5-15); White Blood Count 7.6 10^3/ul (3.5-10.8)
[2018-01-02 14:22] LABS: EGFR Non-African American 72.3 (>60)
[2018-01-02] MEDS ORDERED: Mouth Piece, Nicotine* 1 EACH CARTRIDGE INH PRN (17:34)
[2018-01-02] MEDS ORDERED: Gabapentin CAP(*) 300 MG PO ONE ×2 (17:34→21:21)
[2018-01-02] MEDS ORDERED: Mouth Piece, Nicotine* 1 EACH CARTRIDGE ONE ×2 (17:39→21:41)
[2018-01-02] MEDS: Nicotine Inhaler* 10 MG AMP INH PRN ×2 (17:45→21:35)
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
[2018-01-02] MEDS ORDERED: Nicotine GUM* 2 MG PO PRN (21:21)
[2018-01-02] MEDS ORDERED: traZODone TAB* 100 MG ONE (21:26)
[2018-01-02] MEDS ORDERED: Nicotine GUM* 2 MG ONE ×2 (21:27→21:28)
[2018-01-02] MEDS ORDERED: traZODone TAB* 100 MG PO ONE (21:30)
--- NOTE | 2018-01-03 00:05 | ED ---
Elmira Rich Rebecca, scribed for Tom Lucio MD on 01/02/18 at 2157 . Progress - Progress Note Progress Note: Pt was signed out by Dr. Bartlett, pending dispo, awaiting MHE. Course/Dx - Course Course Of Treatment: Pt was signed out by Dr. Bartlett, pending dispo, awaiting MHE. Upon completion of MHE and consultation with Dr. Felix, it has been determiend that the pt will be voluntarily admitted with a Dx of mood disorder. Allergies noted. - Diagnoses Provider Diagnoses: Mood disorder Discharge - Sign-Out/Discharge Documenting (check all that apply): Discharge/Admit/Transfer - Admit, Receiving Sign-Out Receiving patient FROM: Osmani Bartlett - Discharge Plan Condition: Fair Disposition: PSYCHIATRIC FACILITY-[facility] [place] Referrals: Jeovany Huang MD [Primary Care Provider] - The documentation as recorded by the Elmira lock Rebecca accurately reflects the service I personally performed and the decisions made by , Tom Lucio MD.
[2018-01-03 08:57] VITALS: BP 87/53
[2018-01-03] MEDS: Venlafaxine EXT RELEASE CAP* 75 MG PO SCH (12:09)
[2018-01-03] MEDS: Cetirizine* 10 MG TAB PO SCH (12:09)
[2018-01-03] MEDS: Buprenorphine/Naloxone 8-2 MG SL TAB* 1 TAB PO SCH (12:10)
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
[2018-01-03] MEDS: Gabapentin CAP(*) 300 MG PO SCH ×2 (14:07→21:03)
[2018-01-03] MEDS ORDERED: Mirtazapine TAB* 15 MG PO SCH (21:00)
[2018-01-03] MEDS ORDERED: Montelukast Sodium TAB* 10 MG PO SCH (21:00)
[2018-01-03] MEDS ORDERED: traZODone TAB* 100 MG PO SCH ×2 (21:00)
[2018-01-04] MEDS: Buprenorphine/Naloxone 8-2 MG SL TAB* 1 TAB PO SCH (08:24)
[2018-01-04] MEDS: Venlafaxine EXT RELEASE CAP* 75 MG PO SCH (08:25)
[2018-01-04] MEDS: Gabapentin CAP(*) 300 MG PO SCH (08:26)
[2018-01-04] MEDS: Cetirizine* 10 MG TAB PO SCH (08:27)
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
--- NOTE | 2018-01-04 15:13 | DS ---
CC: Dr. Jeovany Huang. DISCHARGE SUMMARY: ADDENDUM: "Needs to be carbon copied to Dr. Jeovany Huang." LAWANDA LEVINE, LEAD HANDLER [id number]/[facility] #: [id number]
== END 2018-01-04 13:35 | disposition home or self-care (01) | DRG 881 ==
LOC: ED 13:09 → BSU 22:04
PROVIDERS: ADMIT Psychiatry & Neurology Psychiatry; ATTEND Psychiatry & Neurology Psychiatry
DX: F32.9 Major depressive disorder, single episode, unspecified (principal); R45.851 Suicidal ideations; F41.9 Anxiety disorder, unspecified; Z62.810 Personal history of physical and sexual abuse in childhood; M89.8X6 Other specified disorders of bone, lower leg; F17.200 Nicotine dependence, unspecified, uncomplicated; F43.10 Post-traumatic stress disorder, unspecified; B18.2 Chronic viral hepatitis C; K21.9 Gastro-esophageal reflux disease without esophagitis; Z96.651 Presence of right artificial knee joint; J45.909 Unspecified asthma, uncomplicated; F19.11 Other psychoactive substance abuse, in remission; J42 Unspecified chronic bronchitis; M19.90 Unspecified osteoarthritis, unspecified site; G89.29 Other chronic pain; M79.672 Pain in left foot; F90.9 Attention-deficit hyperactivity disorder, unspecified type; F17.210 Nicotine dependence, cigarettes, uncomplicated; F12.90 Cannabis use, unspecified, uncomplicated; F14.90 Cocaine use, unspecified, uncomplicated; Z91.5 Personal history of self-harm; Z88.8 Allergy status to other drugs, medicaments and biological substances; Z88.6 Allergy status to analgesic agent; Z72.89 Other problems related to lifestyle
CPT/HCPCS: 36415; 80053; 80307; 80320; 80329; 81003; 81015; 84443; 85025; 87077; 87086; 99222; 99238; 99284; A9270-GY; G0480

== ENCOUNTER 2018-09-18 12:24 | Emergency (ER) | payer MEDICARE, MEDICAID ==
--- NOTE | 2018-09-18 12:38 | ED ---
Substance Abuse/Use - HPI Summary HPI Summary: A 47 y/o female brought in by [facility] presents to [facility] with a chief complaint of a heroin OD after snorting heroin on 09/18/18. She claims that she has not used heroin in over one year. She was given 10 mg Narcan IM by [facility], before EMS arrived. She thought she would be OK but did not remember anything. She reports some MADSEN and dizziness. She denies Fever, Chills, Erythema (eyes), Sore throat, Chest pain, Shortness of Breath, Cough, Abdominal pain, Vomiting, Nausea, Dysuria, Hematuria, Myalgia, Edema and Rash. - History Of Current Complaint Chief Complaint: EDOverdose Stated Complaint: OVER DOSE Time Seen by Provider: 09/18/18 12:27 Hx Obtained From: Patient, EMS Ingestion History: Type/Name Of Drug - heroin Overdose Characteristics: Other - Snort Timing Of Abuse: Intermittent Severity Initially: Severe Severity Currently: Moderate Aggravating Factor(s): Nothing Alleviating Factor(s): Nothing Associated Signs And Symptoms: Negative - Fever, Chills, Erythema (eyes), Sore throat, Chest pain, Shortness of Breath, Cough, Abdominal pain, Vomiting, Nausea , Dysuria, Hematuria, Myalgia, Edema and Rash. Related Hx: Drug/Alcohol Last Used @ - approximately 1 year [employer] - Allergies/Home Medications Allergies/Adverse Reactions: Allergies Allergy/AdvReac Type Severity Reaction Status Date / Time omeprazole Allergy See Comment Verified 01/02/18 22:37 tramadol AdvReac See Comment Verified 01/02/18 22:37 NICOTINE PATCH AdvReac Unknown Rash Uncoded 01/02/18 22:37 PMH/Surg Hx/FS Hx/Imm Hx Endocrine/Hematology History: Reports: Hx Thyroid Disease - h/o thyrotoxicosis Denies: Hx Diabetes Cardiovascular History: Denies: Hx Hypertension, Hx Pacemaker/ICD Respiratory History: Reports: Hx Asthma, Hx Chronic Bronchitis, Other Respiratory Problems/Disorders - 30 YR SMOKING HX GI History: Reports: Hx Gastroesophageal Reflux Disease Musculoskeletal History: Reports: Hx Arthritis, Hx Orthopedic Injury - knee replacement Jun 2017, Hx Tendonitis - LEFT ACHILLES TENDONITIS, WEARS BRACE, MUCH BETTER, Other Musculoskeletal History - Chronic pain in left foot due to george bite years ago that has caused limp Sensory History: Denies: Hx Contacts or Glasses, Hx Hearing Aid Opthamlomology History: Denies: Hx Contacts or Glasses Neurological History: Denies: Other Neuro Impairments/Disorders Psychiatric History: Reports: Hx Anxiety, Hx Attention Deficit Hyperactivity Disorder, Hx Depression, Hx Post Traumatic Stress Disorder, Hx Inpatient Treatment, Hx Community Mental Health Tx, Hx Suicide Attempt, Hx Substance Abuse - heroine, cocaine Denies: Hx Eating Disorder, Hx Panic Disorder, Hx Schizophrenia, Hx Bipolar Disorder, Hx of Violent Episodes Against Others, Other Psychiatric Issues/ Disorders - Surgical History Surgery Procedure, Year, and Place: 2016 -- Right Knee surgery Hx Anesthesia Reactions: No Infectious Disease History: No Infectious Disease History: Reports: Hx Hepatitis - Hepatitis C, Hx of Known/ Suspected MRSA - 06/21/17 ON FACE[place] [facility] [place], OK NOW Denies: Hx Clostridium Difficile, Hx Human Immunodeficiency Virus (HIV), Traveled Outside the [place] in Last 30 Days - Family History Known Family History: Negative: Cardiac Disease, Diabetes - Social History Alcohol Use: Occasionally Alcohol Amount: 6-12 beers a day Hx Substance Use: Yes - reports polysubstance self-medication Substance Use Type: Reports: Heroin Substance Use Comment - Amount & Last Used: no substance abuse past 4 weeks - pt drug court mandated Hx Tobacco Use: Yes Smoking Status (MU): Current Every Day Smoker Type: Cigarettes Amount Used/How Often: half a pack a day in the last 30 days Length of Time of Smoking/Using Tobacco: 30 YRS Have You Smoked in the Last Year: Yes Review of Systems Negative: Fever, Chills Negative: Erythema Negative: Sore Throat Negative: Chest Pain Negative: Shortness Of Breath, Cough Negative: Abdominal Pain, Vomiting, Nausea Negative: dysuria, hematuria Negative: Myalgia, Edema Negative: Rash Neurological: Other - Positive: dizziness Positive: Headache Psychological: Other - Positive: heroin OD All Other Systems Reviewed And Are Negative: Yes Physical Exam - Summary Physical Exam Summary: Constitutional: Well-developed, Well-nourished, Alert. (-) Distressed Skin: Warm, Dry HENT: Normocephalic; Atraumatic Eyes: Conjunctiva normal Neck: Musculoskeletal ROM normal neck. (-) JVD, (-) Stridor, (-) Tracheal deviation Cardio: Rhythm regular, rate normal, Heart sounds normal; Intact distal pulses; The pedal pulses are 2+ and symmetric. Radial pulses are 2+ and symmetric. (-) Murmur Pulmonary/Chest wall: Effort normal. (-) Respiratory distress, (-) Wheezes, (-) Rales Abd: Soft, (-) epigastric tenderness, (-) Distension, (-) Guarding, (-) Rebound Musculoskeletal: (-) Edema Lymph: (-) Cervical adenopathy Neuro: Alert, Oriented x3 Psych: Mood and affect Normal Triage Information Reviewed: Yes Vital Signs On Initial Exam: Initial Vitals Temp Pulse Resp BP Pulse Ox 97.7 F 76 16 101/66 98 09/18/18 12:27 09/18/18 12:27 09/18/18 12:27 09/18/18 12:27 09/18/18 12:27 Vital Signs Reviewed: Yes Diagnostics - Vital Signs Vital Signs Temp Pulse Resp BP Pulse Ox 09/18/18 12:27 97.7 F 76 16 101/66 98 - Laboratory Lab Statement: Any lab studies that have been ordered have been reviewed, and results considered in the medical decision making process. Re-Evaluation - Re-Evaluation First Eval Re-Evaluation Time: 14:25 Change: Improved Comment: Patient is ready for discharge. Course/Dx - Course Course Of Treatment: A 47 y/o female brought in by [facility] ambulance presents to [facility] with a chief complaint of a heroin OD after snorting heroin on 09/18/18. In the ED course she was given oral fluids. She will be discharged with a prescription for Narcan. She was instructed to follow up with Dr. Rosenberg at the [facility] clinic and to return to the ED for any changing or worsening symptoms. She is agreeable with this plan. - Diagnoses Provider Diagnoses: Heroin overdose Discharge - Sign-Out/Discharge Documenting (check all that apply): Patient Departure - DC - Discharge Plan Condition: Stable Disposition: HOME Prescriptions: Naloxone HCl [Narcan] 4 mg NS ONCE PRN #2 spray PRN Reason: Per Protocol Referrals: Jeovany Huang MD [Primary Care Provider] - (2-3 days) Sada Rosenberg MD [Medical Doctor] - (2-3 days) Additional Instructions: Follow up with Dr. Rosenberg at the [facility] clinic. RETURN TO THE EMERGENCY DEPARTMENT FOR CHANGING OR WORSENING SYMPTOMS - Attestation Statements Document Initiated by Scribe: Yes Documenting Scribe: Dionicio Daigle Provider For Whom Scribe is Documenting (Include Credential): Jose Benites MD Scribe Attestation: I, Dionicio Daigle, scribed for Jose Benites MD on 09/18/18 at 1425. Status of Scribe Document: Ready
[2018-09-18 14:37] VITALS: BP 127/74
== END 2018-09-18 14:38 | disposition home or self-care (01) ==
LOC: ED 12:24
DX: T40.1X1A Poisoning by heroin, accidental (unintentional), initial encounter (principal); Y92.9 Unspecified place or not applicable; Z88.5 Allergy status to narcotic agent; Z88.8 Allergy status to other drugs, medicaments and biological substances; F17.210 Nicotine dependence, cigarettes, uncomplicated
CPT/HCPCS: 99282

== ENCOUNTER 2018-09-19 20:35 | Inpatient (IN) | payer MEDICARE, MEDICAID ==
--- NOTE | 2018-09-19 21:10 | ED ---
Lower Extremity - HPI Summary HPI Summary: This patient is a 47 year old F brought in by EMS to [facility] c/o bilateral LE pain with associated swelling of the LLE that began last night. The patient reports using cocaine and sub Oxone earlier today, she was seen in the ED yesterday for a fentanyl overdose. The patient rates the pain 10/10 in severity. Patient reports tongue swelling and being unable to ambulate. Patient denies fever, cough, and injury. She states the last time she ambulated was last night and since she has been crawling around the house. Pt states she does not usually use heroin but messed up yesterday. - History of Current Complaint Chief Complaint: EDSubstanceAbuse Stated Complaint: SUBSTANCE ABUSE Time Seen by Provider: 09/19/18 20:51 Hx Obtained From: Patient Mechanism Of Injury: Other - none Onset/Duration: Still Present Severity Initially: Severe Severity Currently: Severe Pain Intensity: 10 Pain Scale Used: 0-10 Numeric Timing: Constant Location: Is Discrete @ - bilat LE Associated Signs And Symptoms: Positive: Weakness. Negative: Fever Able to Bear Weight: No - Allergies/Home Medications Allergies/Adverse Reactions: Allergies Allergy/AdvReac Type Severity Reaction Status Date / Time omeprazole Allergy See Comment Verified 01/02/18 22:37 tramadol AdvReac See Comment Verified 01/02/18 22:37 NICOTINE PATCH AdvReac Unknown Rash Uncoded 01/02/18 22:37 PMH/Surg Hx/FS Hx/Imm Hx Endocrine/Hematology History: Reports: Hx Thyroid Disease - h/o thyrotoxicosis Denies: Hx Diabetes Cardiovascular History: Denies: Hx Hypertension, Hx Pacemaker/ICD Respiratory History: Reports: Hx Asthma, Hx Chronic Bronchitis, Other Respiratory Problems/Disorders - 30 YR SMOKING HX GI History: Reports: Hx Gastroesophageal Reflux Disease Musculoskeletal History: Reports: Hx Arthritis, Hx Orthopedic Injury - knee replacement Jun 2017, Hx Tendonitis - LEFT ACHILLES TENDONITIS, WEARS BRACE, MUCH BETTER, Other Musculoskeletal History - Chronic pain in left foot due to george bite years ago that has caused limp Sensory History: Denies: Hx Contacts or Glasses, Hx Hearing Aid Opthamlomology History: Denies: Hx Contacts or Glasses Neurological History: Denies: Other Neuro Impairments/Disorders Psychiatric History: Reports: Hx Anxiety, Hx Attention Deficit Hyperactivity Disorder, Hx Depression, Hx Post Traumatic Stress Disorder, Hx Inpatient Treatment, Hx Community Mental Health Tx, Hx Suicide Attempt, Hx Substance Abuse - heroine, cocaine Denies: Hx Eating Disorder, Hx Panic Disorder, Hx Schizophrenia, Hx Bipolar Disorder, Hx of Violent Episodes Against Others, Other Psychiatric Issues/ Disorders - Surgical History Surgery Procedure, Year, and Place: 2016 -- Right Knee surgery Hx Anesthesia Reactions: No Infectious Disease History: No Infectious Disease History: Reports: Hx Hepatitis - Hepatitis C, Hx of Known/ Suspected MRSA - 06/21/17 ON FACE, DX AT [facility] [place], TOOK ABX, OK NOW Denies: Hx Clostridium Difficile, Hx Human Immunodeficiency Virus (HIV), Traveled Outside the [place] in Last 30 Days - Family History Known Family History: Negative: Cardiac Disease, Diabetes - Social History Alcohol Use: Occasionally Alcohol Amount: 6-12 beers a day Hx Substance Use: Yes - reports polysubstance self-medication Substance Use Type: Reports: Cocaine, Heroin, Sedatives Substance Use Comment - Amount & Last Used: no substance abuse past 4 weeks - pt drug court mandated Hx Tobacco Use: Yes Smoking Status (MU): Current Every Day Smoker Type: Cigarettes Amount Used/How Often: half a pack a day in the last 30 days Length of Time of Smoking/Using Tobacco: 30 YRS Have You Smoked in the Last Year: Yes Review of Systems Constitutional: Negative - injury Negative: Fever Positive: Other - tongue swelling Negative: Cough Positive: Edema - LLE , Other - pain in LE Positive: Weakness All Other Systems Reviewed And Are Negative: Yes Physical Exam - Summary Physical Exam Summary: VITAL SIGNS: Reviewed. GENERAL: Patient is a well-developed and nourished female who seems anxious and uncomfortable. HEAD AND FACE: No signs of trauma. No ecchymosis, hematomas or skull depressions. No sinus tenderness. EYES: PERRLA, EOMI x 2, No injected conjunctiva, no nystagmus. EARS: Hearing grossly intact. Ear canals and tympanic membranes are within normal limits. MOUTH: Oropharynx within normal limits. NECK: Supple, trachea is midline, no adenopathy, no JVD, no carotid bruit, no c- spine tenderness, neck with full ROM. CHEST: Symmetric, no tenderness at palpation LUNGS: Clear to auscultation bilaterally. No wheezing or crackles. CVS: Regular rate and rhythm, S1 and S2 present, no murmurs or gallops appreciated. ABDOMEN: Soft, non-tender. No signs of distention. No rebound no guarding, and no masses palpated. Bowel sounds are normal. EXTREMITIES: LLE from the knee down is swollen and TTP. The skin is frim and she has decreased sensation from the proximal leg all the joelle down. There are no pulses felt in the LLE NEURO: Alert and oriented x 3. No acute neurological deficits. Speech is normal and follows commands. SKIN: Dry and warm Bedside US doppler showed positive posterior tibial pules in the RLE but no DP pulse. No DP pulse or posterior tibial on the left side. Triage Information Reviewed: Yes Vital Signs On Initial Exam: Initial Vitals Temp Pulse Resp BP Pulse Ox 98.8 F 104 33 143/107 100 09/19/18 20:35 09/19/18 20:35 09/19/18 20:35 09/19/18 20:35 09/19/18 20:35 Vital Signs Reviewed: Yes Diagnostics - Vital Signs Vital Signs Temp Pulse Resp BP Pulse Ox 09/19/18 20:35 98.8 F 104 33 143/107 100 - Laboratory Result Diagrams: 09/19/18 21:56 Lab Statement: Any lab studies that have been ordered have been reviewed, and results considered in the medical decision making process. Lower Extremity Course/Dx - Course Assessment/Plan: This patient is a 47 year old F [facility] bilateral LE pain with associated swelling of the LLE that began last night. The patient reports using cocaine and sub Oxone earlier today, she was seen in the ED yesterday for a fentanyl overdose. The patient rates the pain 10/10 in severity. Patient reports tongue swelling and being unable to ambulate. Patient denies fever, cough, and injury. She states the last time she ambulated was last night and since she has been crawling around the house. Pt states she does not usually use heroin but messed up yesterday.Bloodwork obtained. The patient was given IV Abx, reglan, Fentanyl, and IV fluids. She improved with these medications. magdalene García is going to take the patient to the OR and she will be admitted to [facility] - Diagnoses Provider Diagnoses: Compartment syndrome of left lower extremity - Physician Notifications Discussed Care Of Patient With: Deepti Calloway Time Discussed With Above Provider: 21:21 Instructed by Provider To: Other - She has agreed to come see the patient in the ED. 2216: After evaluating the patient she will take the patient to the OR and will admit the patient.nt. Discharge - Sign-Out/Discharge Documenting (check all that apply): Patient Departure - admitted - Discharge Plan Condition: Fair Disposition: ADMITTED TO [facility] Referrals: Jeovany Huang MD [Primary Care Provider] - - Attestation Statements Document Initiated by Scribe: Yes Documenting Scribe: Jm Grant Provider For Whom Scribe is Documenting (Include Credential): Sridhar St MD Scribe Attestation: Jm Rich , scribed for Sridhar St MD on 09/19/18 at 2218. Status of Scribe Document: Ready
[2018-09-19] MEDS ORDERED: NS 0.9% 1000 ML** 1,000 ML IV.FLUID IV ONE (21:15)
[2018-09-19] MEDS ORDERED: fentaNYL* 50 MCG/ML 2 ML VIAL (100 MCG VIAL) IV SLOW PU ONE (21:18)
[2018-09-19] MEDS ORDERED: Metoclopramide IV* 5 MG/ML 2 ML VIAL IV SLOW PU ONE (21:19)
[2018-09-19] MEDS ORDERED: Piperacillin/Tazobac ADVAN(*) 3.375 GM in NS 0.9% 100 ML* 100 ML IVPB ONE (21:19)
[2018-09-19] MEDS ORDERED: Vancomycin(*) 1,000 MG in NS 0.9% 250 ML* 250 ML IVPB ONE (21:19)
[2018-09-19 22:04] LABS: Hematocrit 39 % (35-47); Hemoglobin 13.5 g/dl (12.0-16.0); Mean Corpuscular HGB Conc 34 g/dl (31-36); Mean Corpuscular Hemoglobin 30 pg (27-31); Mean Corpuscular Volume 86 fL (80-97); Mean Platelet Volume 8.2 fL (7.4-10.4); Platelet Count 203 10^3/ul (150-450); Red Blood Count 4.57 10^6/ul (4.00-5.40); Red Cell Distribution Width 14 % (10.5-15); White Blood Count 17.6 10^3/ul (3.5-10.8)
[2018-09-19 22:21] LABS: ALT 392 U/L (7-52); Albumin 3.6 g/dL (3.2-5.2); Albumin/Globulin Ratio 1.2 (1-3); Alkaline Phosphatase 78 U/L (34-104); BUN/Creatinine Ratio 15.8 (8-20); Blood Urea Nitrogen 38 mg/dL (6-24); C Reactive Protein 119.03 mg/L (<8.01); CO2 Carbon Dioxide 19 mmol/L (22-32); Calcium 8.1 mg/dL (8.6-10.3); Chloride 101 mmol/L (101-111); EGFR African American 26.3 (>60); EGFR Non-African American 21.7 (>60); Glucose 113 mg/dL (70-100); Sodium 131 mmol/L (135-145); Total Protein 6.6 g/dL (6.4-8.9)
[2018-09-19 22:26] LABS: ABS Basophils 0.1 10^3/ul (0-0.2); ABS Eosinophils 0 10^3/ul (0-0.6); ABS Lymphocytes 1.2 10^3/ul (1.0-4.8); ABS Monocytes 2.3 10^3/ul (0-0.8); ABS Nucleated RBC 0 10^3/ul; Eosinophil % 0 %; Nucleated Red Blood Cells % 0
[2018-09-19 22:27] LABS: HCG Pregnancy < 0.60 mIU/mL
[2018-09-19 22:34] LABS: INR 1.1 (0.77-1.02)
[2018-09-19 22:39] LABS: Activated Partial Thrombo Time 24.5 seconds (26.0-36.3)
[2018-09-19] MEDS ORDERED: Midazolam* 1 MG/ML 2 ML VIAL (2 MG) ONE (22:40)
[2018-09-19] MEDS ORDERED: fentaNYL* 50 MCG/ML 2 ML VIAL (100 MCG VIAL) ONE (22:40)
[2018-09-19 23:05] LABS: Anion Gap 11 mmol/L (2-11)
[2018-09-19 23:06] LABS: AST 1079 U/L (13-39)
[2018-09-19 23:10] LABS: Creatine Kinase 68269 U/L (10-223)
[2018-09-19] MEDS ORDERED: DiMENhydriNATE IV* 50 MG/ML VIAL ONE (23:33)
[2018-09-19] MEDS ORDERED: Metoprolol Tartrate IV* 1 MG/ML 5 ML VIAL ONE (23:33)
[2018-09-19] MEDS ORDERED: Propofol* 10 MG/ML 20 ML BTL ONE (23:33)
[2018-09-19] MEDS ORDERED: Famotidine IV* 10 MG/ML 2 ML (20 mg) ONE (23:33)
[2018-09-19] MEDS ORDERED: Ondansetron INJ* 2 MG/ML VIAL IV PRN (23:46)
[2018-09-19] MEDS ORDERED: Levalbuterol 0.63MG/3ML NEB* UNIT OF USE INH PRN (23:46)
[2018-09-19] MEDS ORDERED: Naloxone* 0.4 MG/ML 1 ML VIAL IV PRN (23:46)
[2018-09-19] MEDS ORDERED: Acetaminophen TAB* 325 MG PO PRN (23:46)
[2018-09-19] MEDS ORDERED: DiMENhydriNATE IV* 50 MG/ML VIAL IV PUSH PRN (23:46)
[2018-09-19] MEDS ORDERED: diPHENhydraMINE IV* 50 MG/ML 1 ml VIAL (BENADRYL) IV PRN (23:46)
[2018-09-19] MEDS ORDERED: fentaNYL* 50 MCG/ML 2 ML VIAL (100 MCG VIAL) IV PRN (23:46)
[2018-09-19] MEDS ORDERED: Lidocaine 2% PF * 5 ML VIAL ONE (23:52)
[2018-09-20] MEDS ORDERED: Magnesium Hydroxide LIQ* 30 ML UDC PO PRN (00:22)
[2018-09-20] MEDS ORDERED: oxyCODONE/Acetamin 5/325 MG* TAB PO PRN (00:29)
[2018-09-20] MEDS ORDERED: Acetaminophen TAB* 325 MG PO PRN (00:29)
[2018-09-20] MEDS ORDERED: diPHENhydraMINE IV* 50 MG/ML 1 ml VIAL (BENADRYL) IV PRN (00:29)
[2018-09-20] MEDS ORDERED: Ondansetron INJ* 2 MG/ML VIAL IV PRN (00:29)
[2018-09-20] MEDS ORDERED: NS 0.9% 1000 ML** 1,000 ML IV SCH (01:00)
[2018-09-20] MEDS ORDERED: Lactated Ringers 1000 ML Bag* 1,000 ML IV SCH (01:00)
--- NOTE | 2018-09-20 01:15 | OP ---
DATE OF OPERATION: 09/19/18 - ROOM #352 DATE OF : 74 SURGEON: Deepti Calloway MD SHOULDER JOINER: ANN MARIE Trevino ANESTHESIA: General. PRE-OP DIAGNOSIS: Compartment syndrome of the left leg. POST-OP DIAGNOSIS: Compartment syndrome of the left leg. OPERATIVE PROCEDURE: Compartment release, left leg. ESTIMATED BLOOD LOSS: Zero. TOURNIQUET TIME: 25 minutes. INDICATION FOR PROCEDURE: Peyton is a 47-year-old female who has developed over the last 24 hours marked swelling and extreme pain in her left lower extremity. Her foot has become pulseless and diagnosis is compartment syndrome. She does not recall any injury. X-ray obtained in the operating room was negative for fracture. Patient is an IV drug abuser. She presents for compartment release of the left leg. DESCRIPTION OF PROCEDURE: The patient was brought to the operating room and was given a general anesthetic and placed in the supine position on the operating table with a tourniquet around her left thigh. Skin of her left lower extremity was prepped and draped in the usual sterile fashion. The lower extremity was exsanguinated and tourniquet elevated to 300 mmHg. A lateral longitudinal incision was made care home between the palpable border of the fibula and the anterolateral edge of the tibia. The intermuscular septum was located and then the anterior compartment was incised and divided anterior to the septum and the lateral compartment was incised and divided posterior to the septum. There was some necrotic muscle in the anterior compartment proximally. The remainder of the muscle looked good. Next, a medial incision was made just medial to the posteromedial border of the tibia to gain access to the posterior compartments. Just medial to the edge of the tibia, the deep posterior compartment was released and there was abundant necrotic muscle in this compartment. This was debrided with a rongeur. The superficial posterior compartment was then released and it did not have any necrotic muscle. The wounds were copiously irrigated with saline and loosely closed with lindsey and vessel loops and then dressed with Xeroform, 4x4, ABD, Kerlix, and an Trey wrap. The tourniquet was released and then after approximately 10 minutes, we were able to palpate a posterior tibialis pulse and her foot which prior to surgery was pulseless and white, now had capillary refill less than 2 seconds. [id number]/[facility] #: [id number] [facility] HOSPITALChristelle
[2018-09-20] MEDS: ceFAZolin 1 GM ADVAN(*) 1 GM in NS 0.9% 50 ML* 50 ML IVPB SCH ×3 (02:25→17:19)
[2018-09-20] MEDS: Montelukast Sodium TAB* 10 MG PO SCH (09:09)
[2018-09-20] MEDS: Venlafaxine EXT RELEASE CAP* 75 MG PO SCH (09:09)
[2018-09-20] MEDS: Cetirizine* 10 MG TAB PO SCH (09:09)
[2018-09-20] MEDS: Pantoprazole TAB * 40 MG TAB PO SCH (09:09)
[2018-09-20] MEDS: oxyCODONE TAB* 5 MG TAB PO PRN ×2 (09:09→20:04)
[2018-09-20] MEDS: Docusate CAP* 100 MG PO SCH ×2 (09:10→19:56)
[2018-09-20] MEDS: Magnesium Hydroxide LIQ* 30 ML UDC PO SCH ×3 (09:10→20:02)
[2018-09-20] MEDS ORDERED: LORazepam TAB(*) 1 MG PO SCH (10:00)
[2018-09-20] MEDS: Thiamine IV* 100 MG/ML 2 ML VIAL IM ONE ×2 (11:02→11:10)
[2018-09-20] MEDS ORDERED: diPHENhydraMINE PO* 25 MG PO PRN (11:09)
--- NOTE | 2018-09-20 11:30 | HP ---
HISTORY AND PHYSICAL: DATE OF ADMISSION: 09/20/18 ADMITTING PROVIDER: Jerrod Rossi MD CONSULTING ORTHOPEDIC SURGEON: Deepti Calloway MD PRIMARY CARE PHYSICIAN: Jeovany Huang MD CHIEF COMPLAINT: Left leg pain and inability to walk. HISTORY OF PRESENT ILLNESS: Peyton Trujillo is a 47-year-old female with past medical history of anxiety, depression, PTSD, polysubstance abuse, who since [facility] from [facility] on 08/[facility], has returned to substance abuse including mix of heroin and fentanyl snorted 2 days prior to admission 09/18/18 and then Suboxone and cocaine use the day prior to her admission. She is being evaluated in the post anesthesia recovery room after having urgent medial and lateral fasciotomy for acute compartmental syndrome with Dr. Calloway after presenting to the ED, the night of 09/19/18 and is drowsy and is a limited historian at this time. She did attest to pain in the leg and per report the leg had a lot of necrosis and she was imminently in danger of losing the leg. Her CK was noted to be 68,000, creatinine of 2.41, elevated with acute kidney injury from prior of baseline creatinine of 0.8. She was given Zosyn in the emergency room, had a white count of 17.6. She, on evaluation, is not able to feel sensation in her left foot nor can wiggle her left toes for me. PAST MEDICAL HISTORY: Anxiety, depression, PTSD, GERD, chronic hep C, status post Harvoni treatment, polysubstance abuse with cocaine, Suboxone, and heroin in the last few days, and asthma. MEDICATIONS: 1. Protonix 40 mg daily. 2. Effexor 150 mg daily. 3. Claritin 10 mg daily. 4. Suboxone 8-2 daily. 5. Singulair daily. 6. Recently given Narcan after discharge 09/18/18 ED stay. ALLERGIES: Include OMEPRAZOLE, TRAMADOL (throat gets weird) and NICOTINE ( NICODERM CQ with rash). FAMILY HISTORY: Mother with cancer. Father with prostate cancer. 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 Substance abuse as above with cocaine, Suboxone, heroin, and fentanyl. She denies recent IV drug use. She denies alcohol use. She attests to smoking though did not say how often in the recovery room. She desires her father to be her medical surrogate, Dionisio Trujillo and desires to be a full code. REVIEW OF SYSTEMS: Somewhat limited by patient's drowsiness in the PACU. Denies any abdominal pain, fevers, chills, nausea, or vomiting. PHYSICAL EXAMINATION GENERAL APPEARANCE: Very drowsy. VITAL SIGNS: Temperature 98.8, heart rate 92, respiratory rate 15, satting 98% on 1 L, blood pressure 127/87. HEENT: Normocephalic, atraumatic. Pupils equally round and reactive to light. Extraocular motions intact. No scleral icterus. NECK: Supple. LUNGS: Essentially clear to auscultation bilaterally with no wheezing, rales, or rhonchi. CARDIOVASCULAR: Regular rate and rhythm. No murmurs, rubs, or gallops. ABDOMEN: Soft, nontender, nondistended. EXTREMITIES: Right foot warm. Left foot cooler, pallor, but palpable pulses. NEUROLOGIC: Wiggling toes on the right, but not on the left. Cranial nerves intact. States can't feel me touching her left toes. LABS: White count 17.2, hemoglobin 13.5, hematocrit 39, platelets 203. INR 1.1 Sodium 131, potassium 4.0, chloride 101, carbon dioxide 19, BUN 38, creatinine 2.41, glucose 113, calcium 8.1, total bili 0.7, AST 1079, ALT 392, total creatinine kinase 68,269, CRP 119, albumin 3.6, pH less than 0.60. IMAGING: None. ASSESSMENT AND PLAN: Peyton Trujillo is a 47-year-old female with past medical history of substance abuse, anxiety, depression, post-traumatic stress disorder , presenting with a 1 month of returned to substance abuse and evidence of left lower extremity compartment syndrome, status post medial and lateral fasciotomies and complicated by acute renal failure and rhabdomyolysis, also transaminitis, AST greater than ALT with history of chronic hepatitis C, status post treatment. She is not moving her left foot for me. Plan per ANN MARIE Gaona of Orthopedics is to leave the incision open and possibly return for further debridement of necrotic tissue in coming days with recommendations to continue antibiotics given the open nature of the wound. I will defer to Orthopedics and continue the cefazolin they have started for now. From a medical management standpoint, it would be important to keep her out of opioid or heroin withdrawal. We will put on oxycodone 10 q.4 hours p.r.n., Percocet 1 tabs q.4 hours p.r.n. In terms of her rhabdomyolysis with MARTÍN, I am going to hydrate her, initially 200 cc/hour of normal saline, strict Is and Os, monitor volume status closely, observe for any signs of respiratory distress, try to flush out nephrotoxins, repeat BMP daily, get a urinalysis, urine creatinine, and urine sodium levels to calculate FeNA. I am going to check a CK again at 6 a.m. and will need close monitoring. For asthma, continue Singulair. She is a full code. She can eat unrestricted diet and get physical therapy to see her and occupational therapy. We will continue her Effexor and Protonix, hold her Suboxone in the setting of her likely acute pain needs. Defer DVT ppx to Ortho as they are planning repeat surgical procedures. [id number]/[facility] #: [id number] [facility]
--- NOTE | 2018-09-20 12:12 | PN ---
Progress Note - Progress Note Date of Service: 09/20/18 SOAP: Subjective: []Patient seen and examined at bedside. Pain of her LLE has improved. At baseline she has decreased sensation of bilateral lower extremities, her LLE sensation is decreased more than normal but has improved from her preoperative state. Denies CP, SOB, dizziness, nausea. Objective: []General: NAD LLE: Dressing in place CDI, reinforced by nursing staff this morning. No erythema or tenderness proximal to the dressing. Foot is warm and well perfused with capillary refill less than two seconds distally. DP pulse 1+ palpation limited by edema, strong pulse with dopplar. Foot is compressible and nontender. Sensation is intact to light touch, though remains decreased from baseline. Unable to f/e MTPs or ankle. RLE calf supple and nontender Assessment: []Left lower leg compartment syndrome s/p fasciotomy Dr Calloway 09/19/18 Plan: []WBAT PT/OT SCD on contralateral LE CBC and BMP ordered today Loose closure with vessel loops and lindsey Vital Signs Temp 98.1 F 09/20/18 10:15 Pulse 99 09/20/18 10:15 Resp 16 09/20/18 11:10 BP 116/77 09/20/18 10:15 Pulse Ox 98 09/20/18 10:15 Intake & Output 09/19/18 09/20/18 09/20/18 18:59 06:59 18:59 Intake Total 1100 899 Output Total 250 150 Balance 850 749 Weight 160 lb Intake: IV Fluids 950 899 LR 850 NS 899 Oral 150 Output: Urine 250 150 Laboratory Last Values WBC 17.6 10^3/ul (3.5-10.8) H 09/19/18 21:56 RBC 4.57 10^6/ul (4.00-5.40) 09/19/18 21:56 Hgb 13.5 g/dl (12.0-16.0) 09/19/18 21:56 Hct 39 % (35-47) 09/19/18 21:56 MCV 86 fL (80-97) 09/19/18 21:56 MCH 30 pg (27-31) 09/19/18 21:56 MCHC 34 g/dl (31-36) 09/19/18 21:56 RDW 14 % (10.5-15) 09/19/18 21:56 Plt Count 203 10^3/ul (150-450) 09/19/18 21:56 MPV 8.2 fL (7.4-10.4) 09/19/18 21:56 Neut % (Auto) 79.6 % 09/19/18 21:56 Lymph % (Auto) 7.0 % 09/19/18 21:56 [place] % (Auto) 13.0 % 09/19/18 21:56 Eos % (Auto) 0 % 09/19/18 21:56 Baso % (Auto) 0.4 % 09/19/18 21:56 Absolute Neuts (auto) 14.0 10^3/ul (1.5-7.7) H 09/19/18 21:56 Absolute Lymphs (auto) 1.2 10^3/ul (1.0-4.8) 09/19/18 21:56 Absolute Monos (auto) 2.3 10^3/ul (0-0.8) H 09/19/18 21:56 Absolute Eos (auto) 0 10^3/ul (0-0.6) 09/19/18 21:56 Absolute Basos (auto) 0.1 10^3/ul (0-0.2) 09/19/18 21:56 Absolute Nucleated RBC 0 10^3/ul 09/19/18 21:56 Nucleated RBC % 0 09/19/18 21:56 INR (Anticoag Therapy) 1.10 (0.77-1.02) H 09/19/18 21:56 APTT 24.5 seconds (26.0-36.3) L 09/19/18 21:56 Sodium 131 mmol/L (135-145) L 09/19/18 21:56 Potassium 4.0 mmol/L (3.5-5.0) 09/19/18 21:56 Chloride 101 mmol/L (101-111) 09/19/18 21:56 Carbon Dioxide 19 mmol/L (22-32) L 09/19/18 21:56 Anion Gap 11 mmol/L (2-11) 09/19/18 21:56 BUN 38 mg/dL (6-24) H 09/19/18 21:56 Creatinine 2.41 mg/dL (0.51-0.95) H 09/19/18 21:56 Est GFR ( Amer) 26.3 (>60) 09/19/18 21:56 Est GFR (Non-Af Amer) 21.7 (>60) 09/19/18 21:56 BUN/Creatinine Ratio 15.8 (8-20) 09/19/18 21:56 Glucose 113 mg/dL (70-100) H 09/19/18 21:56 Lactic Acid 2.0 mmol/L (0.5-2.0) 09/19/18 21:56 Calcium 8.1 mg/dL (8.6-10.3) L 09/19/18 21:56 Total Bilirubin 0.70 mg/dL (0.2-1.0) 09/19/18 21:56 AST 1079 U/L (13-39) H 09/19/18 21:56 ALT 392 U/L (7-52) H 09/19/18 21:56 Alkaline Phosphatase 78 U/L (34-104) 09/19/18 21:56 Total Creatine Kinase 13331 U/L (10-223) H 09/19/18 21:56 C-Reactive Protein 119.03 mg/L (<8.01) H 09/19/18 21:56 Total Protein 6.6 g/dL (6.4-8.9) 09/19/18 21:56 Albumin 3.6 g/dL (3.2-5.2) 09/19/18 21:56 Globulin 3.0 g/dL (2-4) 09/19/18 21:56 Albumin/Globulin Ratio 1.2 (1-3) 09/19/18 21:56 Beta HCG, Quant < 0.60 mIU/mL 09/19/18 21:56 Blood Type B Positive 09/19/18 21:56 Antibody Screen Negative 09/19/18 21:56
--- NOTE | 2018-09-20 12:17 | PN ---
Subjective Date of Service: 09/20/18 Interval History: Pt c/o pain and feeling anxious. Met with pt and pt's mother today. Pt "passed out" 24 H prior to admission due to "bad reaction to clonazepam". She is not aware of trauma to either leg and she stated that her LOC was in a public place and she "wasn't out for that long". Pt denies ETOH of narcotic use apart for Suboxone from [facility] for the past "several years". Objective Active Medications: Acetaminophen (Tylenol Tab*) 650 mg PO Q6H PRN PRN Reason: PAIN OR TEMPERATURE Cetirizine HCl (Zyrtec*) 10 mg PO DAILY [facility] Last Admin: 09/20/18 09:09 Dose: 10 mg Diphenhydramine HCl (Benadryl Iv*) 25 mg IV Q6H PRN PRN Reason: itching Diphenhydramine HCl (Benadryl Po*) 25 mg PO Q4H PRN PRN Reason: ITCHING Docusate Sodium (Colace Cap*) 100 mg PO BID [facility] Last Admin: 09/20/18 09:10 Dose: 100 mg Enoxaparin Sodium (Lovenox(*)) 30 mg SUBCUT Q24H [facility] Folic Acid (Folvite Tab*) 1 mg PO DAILY [facility] Cefazolin Sodium 1 gm/ Sodium (Chloride) 50 mls @ 200 mls/hr IVPB Q8H [facility] Stop: 09/20/18 18:44 Last Admin: 09/20/18 11:03 Dose: 200 mls/hr Sodium Chloride (Ns 0.9% 1000 Ml*) 1,000 mls @ 200 mls/hr IV PER RATE [facility] Last Admin: 09/20/18 01:44 Dose: 200 mls/hr Levalbuterol HCl (Xopenex 0.63mg/3ml Neb*) 0.63 mg INH ONCE PRN PRN Reason: SOB/WHEEZING Stop: 09/20/18 23:45 Lorazepam (Ativan Tab(*)) 1 mg PO Q6H PRN PRN Reason: ANXIETY Magnesium Hydroxide (Milk Of Magnesia Liq*) 30 ml PO BID [facility] Last Admin: 09/20/18 10:47 Dose: Not Given Magnesium Hydroxide (Milk Of Magnesia Liq*) 30 ml PO Q6H PRN PRN Reason: constipation Montelukast Sodium (Singulair Tab*) 10 mg PO DAILY [facility] Last Admin: 09/20/18 09:09 Dose: 10 mg Morphine Sulfate (Morphine Vial*) 2 mg IV Q2H PRN PRN Reason: PAIN Morphine Sulfate (Morphine Vial*) 4 mg IV Q4H PRN PRN Reason: PAIN Multivitamins/Minerals (Theragran/Minerals Tab*) 1 tab PO DAILY [facility] Ondansetron HCl (Zofran Inj*) 4 mg IV Q6H PRN PRN Reason: nausea Oxycodone HCl (Roxycodone Tab*) 10 mg PO Q4H PRN PRN Reason: PAIN - SEVERE Last Admin: 09/20/18 09:09 Dose: 10 mg Oxycodone/Acetaminophen (Percocet 5/325 Tab*) 1 tab PO Q4H PRN PRN Reason: PAIN Oxycodone/Acetaminophen (Percocet 5/325 Tab*) 2 tab PO Q4H PRN PRN Reason: PAIN Pantoprazole Sodium (Protonix Tab *) 40 mg PO DAILY [facility] Last Admin: 09/20/18 09:09 Dose: 40 mg Thiamine HCl (Vitamin B-1 Tab*) 100 mg PO DAILY [facility] Venlafaxine HCl (Effexor Xr Cap*) 150 mg PO DAILY [facility] Last Admin: 09/20/18 09:09 Dose: 150 mg Vital Signs - 8 hr 09/20/18 09/20/18 09/20/18 07:58 09:09 09:16 Temperature 97.8 F Pulse Rate 96 98 Respiratory 16 20 24 Rate Blood Pressure 113/82 (mmHg) O2 Sat by Pulse 98 Oximetry 09/20/18 09/20/18 09/20/18 10:00 10:15 11:10 Temperature 98.1 F Pulse Rate 99 Respiratory 22 16 16 Rate Blood Pressure 116/77 (mmHg) O2 Sat by Pulse 98 Oximetry Oxygen Devices in Use Now: Nasal Cannula Appearance: 47 yo F in nAD, aAOx3 Eyes: No Scleral Icterus, PERRLA Ears/Nose/Mouth/Throat: NL Teeth, Lips, Gums, Mucous Membranes Moist Neck: NL Appearance and Movements; NL JVP, Trachea Midline Respiratory: Symmetrical Chest Expansion and Respiratory Effort, Clear to Auscultation Cardiovascular: NL Sounds; No Murmurs; No JVD Abdominal: NL Sounds; No Tenderness; No Distention Lymphatic: No Cervical Adenopathy Extremities: No Clubbing, Cyanosis, - - left thigh edema-mild, nonpitting. L calf in post op dressings-not removed. Both feet with weak peripheral pulses, but no foot cyanosis noted and good cap. refill in both feet noted. Skin: No Nodules or Sclerosis Neurological: Alert and Oriented x 3, NL Muscle Strength and Tone Result Diagrams: 09/19/18 21:56 09/19/18 21:56 Microbiology and Other Data: Microbiology 09/20/18 02:35 Nasal Screen MRSA (PCR) - Final Nasal Mrsa Not Detected Assess/Plan/Problems-Billing Assessment: 47 yo f with h/o pysubstance abuse, anxiety depression, now on Suboxone and Clonazepam presented with left leg compartment syndrome after syncope , poss. OD. - Patient Problems (1) Compartment syndrome Comment: of L calf. Likley due to rhabdo-no trauma hx noted. S/p OR on 09/20/[address] Calloway Post op morphine , Ativan , oxycodone ordered. (2) Acute renal failure Comment: due to severe rhabdo cont IVF, f/u daily CPK (3) LFT elevation Comment: due to a combination of rhabdo and low prefusion state. Pt has h/o Hep C treated in the past (4) Chronic, continuous use of opioids Comment: suboxone held post op (5) DVT prophylaxis Comment: lovenox at renal dose Status and Disposition: inpatient
[2018-09-20] MEDS: Morphine VIAL* 4 MG/ML VIAL (1 ml vial) IV PRN (14:42)
[2018-09-20 15:25] LABS: Hematocrit 35 % (35-47); Hemoglobin 11.8 g/dl (12.0-16.0); Mean Corpuscular HGB Conc 34 g/dl (31-36); Mean Corpuscular Hemoglobin 30 pg (27-31); Mean Corpuscular Volume 88 fL (80-97); Mean Platelet Volume 8.2 fL (7.4-10.4); Platelet Count 162 10^3/ul (150-450); Red Blood Count 3.99 10^6/ul (4.00-5.40); Red Cell Distribution Width 15 % (10.5-15); White Blood Count 12.8 10^3/ul (3.5-10.8)
[2018-09-20 15:27] LABS: ABS Basophils 0.1 10^3/ul (0-0.2); ABS Eosinophils 0 10^3/ul (0-0.6); ABS Lymphocytes 1.2 10^3/ul (1.0-4.8); ABS Monocytes 1.7 10^3/ul (0-0.8); ABS Neutrophils 9.9 10^3/ul (1.5-7.7); ABS Nucleated RBC 0 10^3/ul; Eosinophil % 0.2 %; Lymphocyte % 9.4 %; Nucleated Red Blood Cells % 0
[2018-09-20 15:49] LABS: Albumin/Globulin Ratio 1.4 (1-3); BUN/Creatinine Ratio 10.6 (8-20); Calcium 7.5 mg/dL (8.6-10.3); EGFR African American 14.5 (>60); Globulin 2.2 g/dL (2-4); Indirect Bilirubin 0.3 mg/dL (0.3-1.0); Potassium 4.4 mmol/L (3.5-5.0); Total Bilirubin 0.4 mg/dL (0.2-1.0); Total Protein 5.2 g/dL (6.4-8.9)
[2018-09-20] MEDS: oxyCODONE/Acetamin 5/325 MG* TAB PO PRN ×2 (17:19→22:06)
[2018-09-20] MEDS ORDERED: NS 0.9% 1000 ML** 1,000 ML IV ONE (17:46)
[2018-09-21] MEDS: NS 0.9% 1000 ML** 1,000 ML IV SCH ×3 (01:47→10:30)
[2018-09-21] MEDS: Morphine VIAL* 4 MG/ML VIAL (1 ml vial) IV PRN ×6 (05:42→23:47)
[2018-09-21 06:09] LABS: ABS Basophils 0.1 10^3/ul (0-0.2); ABS Eosinophils 0 10^3/ul (0-0.6); ABS Lymphocytes 1.3 10^3/ul (1.0-4.8); ABS Monocytes 1.5 10^3/ul (0-0.8); ABS Neutrophils 8.8 10^3/ul (1.5-7.7); ABS Nucleated RBC 0 10^3/ul; Eosinophil % 0.3 %; Hematocrit 31 % (35-47); Hemoglobin 10.5 g/dl (12.0-16.0); Lymphocyte % 10.7 %; Mean Corpuscular HGB Conc 34 g/dl (31-36); Mean Corpuscular Hemoglobin 30 pg (27-31); Mean Corpuscular Volume 88 fL (80-97); Mean Platelet Volume 8.1 fL (7.4-10.4); Nucleated Red Blood Cells % 0; Platelet Count 139 10^3/ul (150-450); Red Blood Count 3.54 10^6/ul (4.00-5.40); Red Cell Distribution Width 14 % (10.5-15); White Blood Count 11.7 10^3/ul (3.5-10.8)
[2018-09-21 06:19] LABS: INR 1.1 (0.77-1.02)
[2018-09-21 06:33] LABS: Albumin 2.5 g/dL (3.2-5.2); BUN/Creatinine Ratio 9.3 (8-20); Calcium 7.2 mg/dL (8.6-10.3); EGFR African American 11.8 (>60); EGFR Non-African American 9.7 (>60); Globulin 2.4 g/dL (2-4); Potassium 4.3 mmol/L (3.5-5.0); Total Bilirubin 0.4 mg/dL (0.2-1.0); Total Protein 4.9 g/dL (6.4-8.9)
[2018-09-21 06:43] LABS: Urine Appearance Cloudy; Urine Bacteria Absent (Absent); Urine Bilirubin Negative (Negative); Urine Blood 3+ (Negative); Urine Glucose 1+(50 mg/dL) (Negative); Urine Ketones Negative (Negative); Urine Nitrite Negative (Negative); Urine Protein 2+(100 mg/dL) (Negative); Urine Red Blood Cell 3+(>10/hpf) (Absent); Urine Specific Gravity 1.008 (1.010-1.030); Urine Squamous Epithelial Cell Present (Absent); Urine Urobilinogen Negative (Negative); Urine White Blood Cell Trace(0-5/hpf) (Absent)
[2018-09-21 07:02] LABS: Urine Color Red
[2018-09-21] MEDS ORDERED: Enoxaparin(*) 30 MG/0.3 ML SYR SUBCUT SCH (09:00)
[2018-09-21] MEDS ORDERED: Enoxaparin(*) 40 MG/0.4 ML SYR SUBCUT SCH (09:00)
[2018-09-21] MEDS ORDERED: Pneumococcal *Vac Polyvalent 0.5 ML VIAL IM ONE (09:00)
[2018-09-21] MEDS: Folic Acid TAB* 1 MG PO SCH (09:29)
[2018-09-21] MEDS: Docusate CAP* 100 MG PO SCH ×2 (09:29→22:06)
[2018-09-21] MEDS: Cetirizine* 10 MG TAB PO SCH (09:29)
[2018-09-21] MEDS: Venlafaxine EXT RELEASE CAP* 75 MG PO SCH (09:30)
[2018-09-21] MEDS: Magnesium Hydroxide LIQ* 30 ML UDC PO SCH (09:30)
[2018-09-21] MEDS: Pantoprazole TAB * 40 MG TAB PO SCH (09:30)
[2018-09-21] MEDS: Thiamine TAB* 100 MG TAB PO SCH (09:30)
[2018-09-21] MEDS: Multivitamins/Minerals TAB PO SCH (09:30)
[2018-09-21] MEDS: Montelukast Sodium TAB* 10 MG PO SCH (09:30)
[2018-09-21 11:04] LABS: Hepatitis B Surface Antigen Nonreactive (Nonreactive)
[2018-09-21 11:27] LABS: Hepatitis C Antibody High Reactive (Nonreactive)
[2018-09-21] MEDS ORDERED: Sodium Bicarbonate 8.4% IV* 150 MEQ in D5W 1000 ML BAG* 1,000 ML IVPB SCH (14:00)
[2018-09-21 14:17] LABS: Urine Appearance Cloudy; Urine Bacteria Absent (Absent); Urine Bilirubin Negative (Negative); Urine Blood 3+ (Negative); Urine Glucose Negative (Negative); Urine Ketones Negative (Negative); Urine Nitrite Negative (Negative); Urine Protein 2+(100 mg/dL) (Negative); Urine Red Blood Cell 3+(>10/hpf) (Absent); Urine Specific Gravity 1.008 (1.010-1.030); Urine Squamous Epithelial Cell Present (Absent); Urine Urobilinogen Negative (Negative); Urine White Blood Cell 3+(>20/hpf) (Absent)
[2018-09-21 14:22] LABS: Magnesium 2.2 mg/dL (1.9-2.7)
[2018-09-21] MEDS ORDERED: Bupivacaine 0.5% W/EPI SDV* 30 ML VIAL ONE (14:25)
[2018-09-21] MEDS ORDERED: Mineral Oil Sterile, TOPICAL* 25 ML BTL ONE (14:26)
[2018-09-21 14:27] LABS: Phosphorus 6.5 mg/dL (2.5-5.0)
--- NOTE | 2018-09-21 14:31 | PN ---
Subjective Date of Service: 09/21/18 Interval History: Pt is NPO awaiting OR, noted that she cannot move L foot Objective Active Medications: Acetaminophen (Tylenol Tab*) 650 mg PO Q6H PRN PRN Reason: PAIN OR TEMPERATURE Cetirizine HCl (Zyrtec*) 10 mg PO DAILY [facility] Last Admin: 09/21/18 09:29 Dose: Not Given Diphenhydramine HCl (Benadryl Iv*) 25 mg IV Q6H PRN PRN Reason: itching Diphenhydramine HCl (Benadryl Po*) 25 mg PO Q4H PRN PRN Reason: ITCHING Last Admin: 09/20/18 19:55 Dose: 25 mg Docusate Sodium (Colace Cap*) 100 mg PO BID [facility] Last Admin: 09/21/18 09:29 Dose: Not Given Folic Acid (Folvite Tab*) 1 mg PO DAILY [facility] Last Admin: 09/21/18 09:29 Dose: Not Given Sodium Bicarbonate 150 meq/ (Dextrose) 1,150 mls @ 200 mls/hr IVPB Q24H [facility] Last Admin: 09/21/18 14:04 Dose: 200 mls/hr Lorazepam (Ativan Tab(*)) 1 mg PO Q6H PRN PRN Reason: ANXIETY Montelukast Sodium (Singulair Tab*) 10 mg PO DAILY [facility] Last Admin: 09/21/18 09:30 Dose: Not Given Morphine Sulfate (Morphine Vial*) 2 mg IV Q2H PRN PRN Reason: PAIN Morphine Sulfate (Morphine Vial*) 4 mg IV Q4H PRN PRN Reason: PAIN Last Admin: 09/21/18 10:21 Dose: 4 mg Multivitamins/Minerals (Theragran/Minerals Tab*) 1 tab PO DAILY [facility] Last Admin: 09/21/18 09:30 Dose: Not Given Ondansetron HCl (Zofran Inj*) 4 mg IV Q6H PRN PRN Reason: nausea Oxycodone HCl (Roxycodone Tab*) 10 mg PO Q4H PRN PRN Reason: PAIN - SEVERE Last Admin: 09/20/18 20:04 Dose: 10 mg Oxycodone/Acetaminophen (Percocet 5/325 Tab*) 1 tab PO Q4H PRN PRN Reason: PAIN Oxycodone/Acetaminophen (Percocet 5/325 Tab*) 2 tab PO Q4H PRN PRN Reason: PAIN Last Admin: 09/20/18 22:06 Dose: 2 tab Pantoprazole Sodium (Protonix Tab *) 40 mg PO DAILY [facility] Last Admin: 09/21/18 09:30 Dose: Not Given Thiamine HCl (Vitamin B-1 Tab*) 100 mg PO DAILY [facility] Last Admin: 09/21/18 09:30 Dose: Not Given Venlafaxine HCl (Effexor Xr Cap*) 150 mg PO DAILY [facility] Last Admin: 09/21/18 09:30 Dose: Not Given Vital Signs - 8 hr 09/21/18 09/21/18 09/21/18 07:41 08:00 10:21 Temperature 98.4 F Pulse Rate 97 Respiratory 16 18 18 Rate Blood Pressure 103/72 (mmHg) O2 Sat by Pulse 95 Oximetry 09/21/18 11:05 Temperature 98.0 F Pulse Rate 97 Respiratory 16 Rate Blood Pressure 112/65 (mmHg) O2 Sat by Pulse 98 Oximetry Oxygen Devices in Use Now: None Appearance: 47 yo F in nAD, aAOx3 Eyes: No Scleral Icterus, PERRLA Ears/Nose/Mouth/Throat: NL Teeth, Lips, Gums, Mucous Membranes Moist Neck: NL Appearance and Movements; NL JVP, Trachea Midline Respiratory: Symmetrical Chest Expansion and Respiratory Effort, Clear to Auscultation Cardiovascular: NL Sounds; No Murmurs; No JVD, RRR Abdominal: NL Sounds; No Tenderness; No Distention, No Hepatosplenomegaly Lymphatic: No Cervical Adenopathy Extremities: No Clubbing, Cyanosis, - - left leg edema, post op dressings not removed Skin: No Nodules or Sclerosis Neurological: Alert and Oriented x 3, - - unable to flex her left foot, unable to move toes on left, Babinski neg b/l Result Diagrams: 09/21/18 06:00 09/21/18 06:00 Microbiology and Other Data: Microbiology 09/20/18 02:35 Nasal Screen MRSA (PCR) - Final Nasal Mrsa Not Detected Assess/Plan/Problems-Billing Assessment: 47 yo f with h/o pysubstance abuse, anxiety depression, now on Suboxone and Clonazepam presented with left leg compartment syndrome after syncope , poss. OD. - Patient Problems (1) Compartment syndrome Comment: of L calf. Likely due to rhabdo-no trauma hx noted. Pt is unable to move left foot, will d/c ortho S/p OR on 09/20/[address] Calloway, planned for OR today for further debridement Rhabdomyolysis slowly resolving, CPK lower today (2) Acute renal failure Comment: due to severe rhabdo appreciate Dr. Hanley consult. will switch to bicarb gtt at 200 ml /hr Reanl US unremarkable (3) LFT elevation Comment: due to a combination of rhabdo and low prefusion state. Pt has h/o Hep C treated in the past (4) Chronic, continuous use of opioids Comment: suboxone held post op (5) DVT prophylaxis Comment: lovenox at renal dose held preop Status and Disposition: inpatient
[2018-09-21] MEDS ORDERED: DiMENhydriNATE IV* 50 MG/ML VIAL IV PUSH PRN (16:41)
[2018-09-21] MEDS ORDERED: Naloxone* 0.4 MG/ML 1 ML VIAL IV PRN (16:41)
[2018-09-21] MEDS ORDERED: PROCHLORPERAZINE INJ 5 MG/ML 2 ML VIAL IV PRN (16:41)
[2018-09-21] MEDS ORDERED: fentaNYL* 50 MCG/ML 2 ML VIAL (100 MCG VIAL) IV PRN (16:41)
[2018-09-21] MEDS ORDERED: fentaNYL* 50 MCG/ML 5 ML VIAL (250 MCG VIAL) ONE (16:45)
[2018-09-21] MEDS ORDERED: Midazolam* 1 MG/ML 5 ML VIAL (5 MG) ONE (16:46)
[2018-09-21] MEDS ORDERED: KETAMINE HCL* 50 MG/ML 10 ML VIAL ONE (16:46)
[2018-09-21] MEDS ORDERED: Lidocaine 2% PF* 10 ML AMP ONE (16:59)
[2018-09-21] MEDS ORDERED: ceFAZolin 2 GM PREMIX in ORs 2 GM/50 ML BAG IVPB ONE (17:19)
[2018-09-21 17:47] LABS: Urine Color Red
[2018-09-21] MEDS ORDERED: Metoprolol Tartrate IV* 1 MG/ML 5 ML VIAL ONE (17:59)
[2018-09-21] MEDS ORDERED: Propofol* 10 MG/ML 20 ML BTL ONE (17:59)
[2018-09-21] MEDS ORDERED: Lidocaine 2% PF * 5 ML VIAL ONE (17:59)
[2018-09-21] MEDS ORDERED: Bupivacaine 0.5%* 50 ML VIAL ONE (18:15)
[2018-09-21] MEDS ORDERED: Morphine VIAL* 10 MG/ML 1 ML VIAL ONE (18:18)
[2018-09-21] MEDS ORDERED: Vancomycin per Pharmacy* NOTE FOLLOW UP SCH (19:00)
--- NOTE | 2018-09-21 19:21 | OP ---
Operative Report - Blank - Operative Report Date of Operation: 09/21/18 Note: PATIENT: Peyton Trujillo DATE OF : 1970 DATE OF SURGERY: 09/21/2018 SURGEON: Cj Appiah MD SCREENING NURSE: ANN MARIE Lopez, whos assistance was necessary for positioning, retraction, help with instrumentation, and closure. ANESTHESIOLOGIST: Dr. Jatin Black PREOPERATIVE DIAGNOSIS: Left leg compartment syndrome status post four compartment fasciotomies POSTOPERATIVE DIAGNOSIS: Left leg compartment syndrome status post four compartment fasciotomies with extensive muscle necrosis. OPERATION: 1. Irrigation and debridement of left leg wounds and excision of necrotic deep muscle. 2. Complex secondary wound closure of prior medial fasciotomy surgical wound. 3. Placement of a negative pressure wound VAC in the prior lateral fasciotomy wound. ANESTHESIA: GETA IMPLANTS: none TOURNIQUET TIME: none SPECIMENS: none ESTIMATED BLOOD LOSS: 100cc COMPLICATIONS: none STATUS: Stable from the operating room to the recovery room and then back to the hospital floor. INDICATIONS FOR PROCEDURE: Peyton is an IV drug user who developed compartment syndrome of the left lower leg. She underwent 4 compartment fasciotomies 2 days ago and the wounds were packed and left open. A long discussion with Peyton this morning about repeat surgery today for irrigation and debridement, excision of any necrotic muscle, and then possibly wound closure versus VAC versus split thickness skin grafting. Both operative and non-operative treatment alternatives were reviewed. Further, the nature and risks of surgery were reviewed in careful detail. Our discussions regarding the risks of surgery included, but were not limited to, infection, wound problems, nerve injury, neuroma, RSD, persistent symptoms, blood clot, need for further surgery, need for amputation, failure of the surgery, and even the chance of catastrophic complication, including . DESCRIPTION OF PROCEDURE: The patient was seen in the preoperative holding unit and informed written consent was obtained. The appropriate extremity was marked. The patient was then brought to the operating room and carefully positioned on the operating room table. Anesthesia was induced. All bony prominences were padded with great care. A chlorhexidine based pre-scrub was performed followed by a betadine prep and drape in standard sterile fashion. A surgical safety pause was then conducted in which we confirmed the appropriate patient, extremity, planned procedure, availability of equipment, indication and administration of prophylactic antibiotics, and DVT prophylaxis in the form of a compression boot on the non-surgical extremity. I started by opening the previous fasciotomy wounds of which there was one medially and laterally. I explored the 4 leg compartments. There was extensive muscle in the anterior, lateral, and deep posterior compartments. The superficial posterior compartment was nice and pink and contractile. I then sharply excised. A large amount of muscle from the anterior, lateral, and the posterior muscle compartments with a 10 blade scalpel. I frequently used a Bovie to check for muscle contractility and excised back to bleeding muscle. The debridement included the superficial, muscle, fascial layers down to the periosteum and bone. After this debridement , the lateral wound measured 22 cm in length by 5 cm in width and 5 cm in depth for a total area of 550. The medial wound measured 18 cm in length by 5 cm in width and 3 cm in test for a total area of 270. The wounds were then copiously irrigated with sterile saline. Given that the superficial posterior compartment was healthy appearing, and the deep posterior compartment was treated, I decided to try and closed the medial fasciotomy wound. This was a complex wound closure due to the irregular contour of the underlying muscle, undermining, prior tension on the skin. The wound was closed in layers utilizing #1 Vicryl for the deep layer, 0 Vicryl for the deep dermal layer, 2-0 Vicryl for the subcutaneous tissue, and a stapler for the skin. I then turned my attention to the lateral fasciotomy wound. Even after debriding an extensive amount of muscle, I never reached healthy appearing muscle. I did stop when any contractility or blood flow was appreciated. This did leave a void in the wound. There is too much tension on the skin to try and close this, and I also think it likely will need another debridement. Therefore I decided to place a wound VAC with a crisscrossed vessel loop to give some tension to the skin. This held excellent suction at 125 mmHg. The medial wound was then dressed with Xeroform, gauze, ABDs, Kerlix and an Trey wrap. The patient was then awakened from anesthesia and transferred to the recovery room in stable condition. There were no complications. All needle and sponge counts were correct at the end of the case. ATTESTATION: I attest I was present and scrubbed and performed the critical portions of the procedure myself. POSTOPERATIVE PLAN: She will need to remain on IV antibiotics with the open wound. The vac should remain in 125 mmHg. I recommend both chemical and mechanical DVT prophylaxis. She will likely need another debridement. I think there is a high likelihood that she will end up with an amputation.
[2018-09-21] MEDS ORDERED: Morphine VIAL* 4 MG/ML VIAL (1 ml vial) ONE (19:36)
[2018-09-21] MEDS ORDERED: Heparin VIAL(*) 5000 UNITS/ML VIAL (FIVE THOUSAND) SUBCUT SCH (20:00)
[2018-09-21] MEDS ORDERED: Vancomycin(*) 1,250 MG IV x ONCE IVPB ONE ×2 (22:00)
[2018-09-21] MEDS: oxyCODONE TAB* 5 MG TAB PO PRN (22:07)
[2018-09-21] MEDS: Heparin VIAL(*) 5000 UNITS/ML VIAL (FIVE THOUSAND) SUBCUT SCH (22:25)
[2018-09-21 22:53] LABS: EGFR African American 9.3 (>60); EGFR Non-African American 7.7 (>60)
[2018-09-22] MEDS: oxyCODONE/Acetamin 5/325 MG* TAB PO PRN ×6 (00:45→23:40)
[2018-09-22] MEDS: Morphine VIAL* 4 MG/ML VIAL (1 ml vial) IV PRN ×7 (02:13→19:35)
[2018-09-22 06:23] LABS: ABS Basophils 0 10^3/ul (0-0.2); ABS Eosinophils 0.1 10^3/ul (0-0.6); ABS Lymphocytes 1.3 10^3/ul (1.0-4.8); ABS Monocytes 1.4 10^3/ul (0-0.8); ABS Neutrophils 7.3 10^3/ul (1.5-7.7); ABS Nucleated RBC 0 10^3/ul; Eosinophil % 0.7 %; Hematocrit 28 % (35-47); Hemoglobin 9.6 g/dl (12.0-16.0); Lymphocyte % 12.9 %; Mean Corpuscular HGB Conc 34 g/dl (31-36); Mean Corpuscular Hemoglobin 30 pg (27-31); Mean Corpuscular Volume 88 fL (80-97); Mean Platelet Volume 8.5 fL (7.4-10.4); Nucleated Red Blood Cells % 0; Platelet Count 128 10^3/ul (150-450); Red Blood Count 3.21 10^6/ul (4.00-5.40); Red Cell Distribution Width 14 % (10.5-15); White Blood Count 10.1 10^3/ul (3.5-10.8)
[2018-09-22 06:27] LABS: Activated Partial Thrombo Time 29.5 seconds (26.0-36.3); INR 1.19 (0.77-1.02)
[2018-09-22 06:38] LABS: BUN/Creatinine Ratio 7.5 (8-20); Calcium 7.3 mg/dL (8.6-10.3); EGFR African American 9.1 (>60); EGFR Non-African American 7.5 (>60); Potassium 3.9 mmol/L (3.5-5.0)
[2018-09-22] MEDS: Heparin VIAL(*) 5000 UNITS/ML VIAL (FIVE THOUSAND) SUBCUT SCH ×3 (07:35→22:35)
[2018-09-22] MEDS: Multivitamins/Minerals TAB PO SCH (07:35)
[2018-09-22] MEDS: Venlafaxine EXT RELEASE CAP* 75 MG PO SCH (07:35)
[2018-09-22] MEDS: Montelukast Sodium TAB* 10 MG PO SCH (07:36)
[2018-09-22] MEDS: Thiamine TAB* 100 MG TAB PO SCH (07:36)
[2018-09-22] MEDS: Pantoprazole TAB * 40 MG TAB PO SCH (07:36)
[2018-09-22] MEDS: Cetirizine* 10 MG TAB PO SCH (07:36)
[2018-09-22] MEDS: Docusate CAP* 100 MG PO SCH ×2 (07:36→22:37)
[2018-09-22] MEDS: Folic Acid TAB* 1 MG PO SCH (07:36)
[2018-09-22] MEDS ORDERED: NS 0.9% 1000 ML** 1,000 ML IV ONE (08:49)
--- NOTE | 2018-09-22 08:57 | PN ---
Subjective Date of Service: 09/22/18 Interval History: Pt feels well. concerned about not being able to move or feel the left foot Objective Active Medications: Acetaminophen (Tylenol Tab*) 650 mg PO Q6H PRN PRN Reason: PAIN OR TEMPERATURE Cetirizine HCl (Zyrtec*) 10 mg PO DAILY [facility] Last Admin: 09/22/18 07:36 Dose: 10 mg Diphenhydramine HCl (Benadryl Iv*) 25 mg IV Q6H PRN PRN Reason: itching Diphenhydramine HCl (Benadryl Po*) 25 mg PO Q4H PRN PRN Reason: ITCHING Last Admin: 09/20/18 19:55 Dose: 25 mg Docusate Sodium (Colace Cap*) 100 mg PO BID [facility] Last Admin: 09/22/18 07:36 Dose: 100 mg Folic Acid (Folvite Tab*) 1 mg PO DAILY [facility] Last Admin: 09/22/18 07:36 Dose: 1 mg Heparin Sodium (Porcine) (Heparin Vial(*)) 5,000 units SUBCUT Q8H [facility] Last Admin: 09/22/18 07:35 Dose: 5,000 units Sodium Bicarbonate 150 meq/ (Dextrose) 1,150 mls @ 200 mls/hr IVPB PER RATE [facility] Lorazepam (Ativan Tab(*)) 1 mg PO Q6H PRN PRN Reason: ANXIETY Montelukast Sodium (Singulair Tab*) 10 mg PO DAILY [facility] Last Admin: 09/22/18 07:36 Dose: 10 mg Morphine Sulfate (Morphine Vial*) 2 mg IV Q2H PRN PRN Reason: PAIN Last Admin: 09/22/18 07:35 Dose: 2 mg Morphine Sulfate (Morphine Vial*) 4 mg IV Q4H PRN PRN Reason: PAIN Last Admin: 09/21/18 14:27 Dose: 4 mg Multivitamins/Minerals (Theragran/Minerals Tab*) 1 tab PO DAILY [facility] Last Admin: 09/22/18 07:35 Dose: 1 tab Ondansetron HCl (Zofran Inj*) 4 mg IV Q6H PRN PRN Reason: nausea Oxycodone HCl (Roxycodone Tab*) 10 mg PO Q4H PRN PRN Reason: PAIN - SEVERE Last Admin: 09/21/18 22:07 Dose: 10 mg Oxycodone/Acetaminophen (Percocet 5/325 Tab*) 1 tab PO Q4H PRN PRN Reason: PAIN Oxycodone/Acetaminophen (Percocet 5/325 Tab*) 2 tab PO Q4H PRN PRN Reason: PAIN Last Admin: 09/22/18 05:01 Dose: 2 tab Pantoprazole Sodium (Protonix Tab *) 40 mg PO DAILY [facility] Last Admin: 09/22/18 07:36 Dose: 40 mg Pharmacy Consult (Vancomycin Per Pharmacy*) 1 note FOLLOW UP .VANC PER PHARMACY [facility] Thiamine HCl (Vitamin B-1 Tab*) 100 mg PO DAILY [facility] Last Admin: 09/22/18 07:36 Dose: 100 mg Venlafaxine HCl (Effexor Xr Cap*) 150 mg PO DAILY [facility] Last Admin: 09/22/18 07:35 Dose: 150 mg Vital Signs - 8 hr 09/22/18 09/22/18 09/22/18 01:45 02:13 03:15 Temperature 98.3 F Pulse Rate 90 Respiratory 18 18 16 Rate Blood Pressure 107/77 (mmHg) O2 Sat by Pulse 97 Oximetry 09/22/18 09/22/18 09/22/18 03:36 05:01 05:12 Temperature 98.6 F Pulse Rate 87 Respiratory 18 18 18 Rate Blood Pressure 110/69 (mmHg) O2 Sat by Pulse 98 Oximetry 09/22/18 09/22/18 09/22/18 06:16 07:31 07:35 Temperature 97.7 F Pulse Rate 85 Respiratory 16 14 14 Rate Blood Pressure 116/70 (mmHg) O2 Sat by Pulse 99 Oximetry Oxygen Devices in Use Now: None Appearance: 47 yo F in nAD, aAOx3 Eyes: No Scleral Icterus, PERRLA Ears/Nose/Mouth/Throat: NL Teeth, Lips, Gums, Mucous Membranes Moist Neck: NL Appearance and Movements; NL JVP, Trachea Midline Respiratory: Symmetrical Chest Expansion and Respiratory Effort, Clear to Auscultation Cardiovascular: NL Sounds; No Murmurs; No JVD, RRR Abdominal: NL Sounds; No Tenderness; No Distention, No Hepatosplenomegaly Lymphatic: No Cervical Adenopathy Extremities: No Clubbing, Cyanosis, - - left foot edema, L calf wrapped in post op dressings(not removed) Skin: No Nodules or Sclerosis Neurological: Alert and Oriented x 3, - - unable to move left foot, loss on sensation in left foot Result Diagrams: 09/22/18 05:52 09/22/18 05:51 Microbiology and Other Data: Microbiology 09/20/18 02:35 Nasal Screen MRSA (PCR) - Final Nasal Mrsa Not Detected Assess/Plan/Problems-Billing Assessment: 47 yo f with h/o pysubstance abuse, anxiety depression, now on Suboxone and Clonazepam presented with left leg compartment syndrome after syncope , poss. OD. - Patient Problems (1) Compartment syndrome Comment: of L calf. Likely due to rhabdo-no trauma hx noted. Pt is unable to move left foot, also loss of sensation in left foot. S/p OR on 09/20/[address] Calloway, OR with DR. Appiah and Vac placement on 09/21/18 Rhabdomyolysis slowly resolving, CPK lower today (2) Acute renal failure Comment: due to severe rhabdo appreciate Dr. Hanley consult. Cont bicarb gtt at 200 ml /hr. As d/w nephrology will cont current IVF, rate of creat raise is slowing down Renal US unremarkable (3) LFT elevation Comment: due to a combination of rhabdo and low prefusion state. Pt has h/o Hep C treated in the past (4) Chronic, continuous use of opioids Comment: suboxone held post op (5) DVT prophylaxis Comment: HSQ Status and Disposition: inpatient
[2018-09-22] MEDS ORDERED: Sodium Bicarbonate 8.4% IV* 150 MEQ in D5W 1000 ML BAG* 1,000 ML IVPB SCH ×4 (09:00)
[2018-09-22] MEDS ORDERED: Vancomycin Random Level* NOTE FOLLOW UP ONE (12:45)
--- NOTE | 2018-09-22 14:06 | PN ---
Progress Note - Progress Note Date of Service: 09/22/18 SOAP: Subjective: []Patient is seen at bedside, mother present. Pleasant and cooperative, mildly anxious regarding her prognosis of her left leg. She states that she does have pain deep in the leg at the site of fasciotomy. She still is unable to actively move left ankle or toes, numbness is also unchanged. Objective: [] Vital Signs Temp 98.4 F 09/22/18 11:20 Pulse 91 09/22/18 11:20 Resp 16 09/22/18 11:34 BP 117/73 09/22/18 11:20 Pulse Ox 98 09/22/18 11:20 Intake & Output 09/21/18 09/22/18 09/22/18 18:59 06:59 18:59 Intake Total 1638 2250 1000 Output Total 200 250 200 Balance 1438 2000 800 Weight 164 lb 6.4 oz Intake: IV Fluids 1638 1000 1000 NS 1638 1000 Sodium Bicarb in D5W 1000 IVPB 250 ABX - VANCOMYCIN 250 Oral 0 1000 Output: Urine 200 250 200 Other: Estimated Void Medium # Voids 1 Laboratory Results - last 24 hr 09/21/18 09/21/18 09/21/18 06:00 13:00 22:30 WBC RBC Hgb Hct MCV MCH MCHC RDW Plt Count MPV Neut % (Auto) Lymph % (Auto) Mcleod % (Auto) Eos % (Auto) Baso % (Auto) Absolute Neuts (auto) Absolute Lymphs (auto) Absolute Monos (auto) Absolute Eos (auto) Absolute Basos (auto) Absolute Nucleated RBC Nucleated RBC % INR (Anticoag Therapy) APTT Sodium Potassium Chloride Carbon Dioxide Anion Gap BUN Creatinine 5.91 H Est GFR ( Amer) 9.3 Est GFR (Non-Af Amer) 7.7 BUN/Creatinine Ratio Glucose Calcium Phosphorus 6.5 H Magnesium 2.2 Total Creatine Kinase 44089 H Urine Color Red A Urine Appearance Cloudy Urine pH 5.0 Ur Specific [place] 1.008 L Urine Protein 2+(100 mg/dl) A Urine Ketones Negative Urine Blood 3+ A Urine Nitrate Negative Urine Bilirubin Negative Urine Urobilinogen Negative Ur Leukocyte Esterase Negative Urine WBC (Auto) 3+(>20/hpf) A Urine RBC (Auto) 3+(>10/hpf) A Ur Squamous Epith Cells Present A Urine Bacteria Absent Urine Glucose Negative 09/22/18 09/22/18 09/22/18 05:51 05:51 05:52 WBC 10.1 RBC 3.21 L Hgb 9.6 L Hct 28 L MCV 88 MCH 30 MCHC 34 RDW 14 Plt Count 128 L MPV 8.5 Neut % (Auto) 72.0 Lymph % (Auto) 12.9 Mcleod % (Auto) 14.1 Eos % (Auto) 0.7 Baso % (Auto) 0.3 Absolute Neuts (auto) 7.3 Absolute Lymphs (auto) 1.3 Absolute Monos (auto) 1.4 H Absolute Eos (auto) 0.1 Absolute Basos (auto) 0 Absolute Nucleated RBC 0 Nucleated RBC % 0 INR (Anticoag Therapy) 1.19 H APTT 29.5 Sodium 137 Potassium 3.9 Chloride 109 Carbon Dioxide 20 L Anion Gap 8 BUN 45 H Creatinine 6.03 H Est GFR ( Amer) 9.1 Est GFR (Non-Af Amer) 7.5 BUN/Creatinine Ratio 7.5 L Glucose 111 H Calcium 7.3 L Phosphorus Magnesium Total Creatine Kinase Urine Color Urine Appearance Urine pH Ur Specific [place] Urine Protein Urine Ketones Urine Blood Urine Nitrate Urine Bilirubin Urine Urobilinogen Ur Leukocyte Esterase Urine WBC (Auto) Urine RBC (Auto) Ur Squamous Epith Cells Urine Bacteria Urine Glucose Wound vac and light DEEPTHI wrap dressings dry and intact LLE Foot is pale but warm Holds left foot in equinous and is unable to actively dorsiflex the ankle or toes She is able to actively flex and extend her left knee, with full sensation to light touch Erythema around the knee has resolved She is insensate to light touch entire dorsal foot/toes and entire plantar aspect of foot. She states there is a small patch of sensation superior to the medial malleolar region, lateral ankle insensate as well as lateral, posterior, medial gastroc regions. I can palpate and hear dorsalis pedal pulse with doppler I cannot palpate a posterior tibial pulse but can hear pulse with doppler Assessment: Acute Compartment syndrome left leg Insensate left foot with no active motor function s/p 4 compartment fasciotomy and extensive debridement necrotic tissue left calf POD #1 IVDU Rhabdomyolysis Plan: []NPO after midnight Tuesday night- return to OR with Dr. Wen on 09/25/18 for additional debridement necrotic tissue Multi podis boot ordered to prevent contracture Achillies, off for skin care and bathing Kidney function slowly improving PT- non weight bearing LLE Vanco dosed per pharmacy for leg cellulitis- improving
[2018-09-22 15:36] LABS: EGFR African American 8.9 (>60); EGFR Non-African American 7.4 (>60)
[2018-09-22] MEDS: Lidocaine 2% VISCOUS* 15 ML UDC SWISH SPIT PRN (17:11)
[2018-09-22] MEDS: Sodium Bicarbonate 8.4% IV* 150 MEQ in D5W 1000 ML BAG* 1,000 ML IVPB SCH (20:41)
[2018-09-23] MEDS: Morphine VIAL* 4 MG/ML VIAL (1 ml vial) IV PRN ×7 (00:01→22:00)
[2018-09-23] MEDS: Sodium Bicarbonate 8.4% IV* 150 MEQ in D5W 1000 ML BAG* 1,000 ML IVPB SCH ×4 (02:41→20:40)
[2018-09-23] MEDS: oxyCODONE/Acetamin 5/325 MG* TAB PO PRN ×5 (05:57→22:34)
[2018-09-23] MEDS: Heparin VIAL(*) 5000 UNITS/ML VIAL (FIVE THOUSAND) SUBCUT SCH ×3 (06:06→22:34)
[2018-09-23 06:30] LABS: Hematocrit 26 % (35-47); Hemoglobin 9.1 g/dl (12.0-16.0); Mean Corpuscular HGB Conc 35 g/dl (31-36); Mean Corpuscular Hemoglobin 30 pg (27-31); Mean Corpuscular Volume 86 fL (80-97); Mean Platelet Volume 8.4 fL (7.4-10.4); Platelet Count 172 10^3/ul (150-450); Red Blood Count 3.01 10^6/ul (4.00-5.40); Red Cell Distribution Width 14 % (10.5-15); White Blood Count 10.6 10^3/ul (3.5-10.8)
[2018-09-23 06:31] LABS: ABS Basophils 0 10^3/ul (0-0.2); ABS Eosinophils 0.1 10^3/ul (0-0.6); ABS Lymphocytes 1.3 10^3/ul (1.0-4.8); ABS Monocytes 1.6 10^3/ul (0-0.8); ABS Neutrophils 7.6 10^3/ul (1.5-7.7); ABS Nucleated RBC 0 10^3/ul; Eosinophil % 1.2 %; Nucleated Red Blood Cells % 0
[2018-09-23 06:47] LABS: Vancomycin Random 14.9 mcg/mL
[2018-09-23 06:49] LABS: Albumin 2.3 g/dL (3.2-5.2); BUN/Creatinine Ratio 7.9 (8-20); Calcium 7.2 mg/dL (8.6-10.3); EGFR Non-African American 7.4 (>60); Globulin 2.3 g/dL (2-4); Indirect Bilirubin 0.2 mg/dL (0.3-1.0); Potassium 3.4 mmol/L (3.5-5.0); Total Bilirubin 0.3 mg/dL (0.2-1.0); Total Protein 4.6 g/dL (6.4-8.9)
[2018-09-23] MEDS: Lidocaine 2% VISCOUS* 15 ML UDC SWISH SPIT PRN ×2 (08:01→22:34)
[2018-09-23] MEDS ORDERED: Potassium Chlor TAB* 20 MEQ TAB.ER PO ONE (08:19)
[2018-09-23] MEDS: Docusate CAP* 100 MG PO SCH ×2 (08:43→20:40)
[2018-09-23] MEDS: Pantoprazole TAB * 40 MG TAB PO SCH (08:43)
[2018-09-23] MEDS: Multivitamins/Minerals TAB PO SCH (08:43)
[2018-09-23] MEDS: Montelukast Sodium TAB* 10 MG PO SCH (08:43)
[2018-09-23] MEDS: Folic Acid TAB* 1 MG PO SCH (08:43)
[2018-09-23] MEDS: Thiamine TAB* 100 MG TAB PO SCH (08:43)
[2018-09-23] MEDS: Cetirizine* 10 MG TAB PO SCH (08:43)
[2018-09-23] MEDS: Venlafaxine EXT RELEASE CAP* 75 MG PO SCH (08:44)
--- NOTE | 2018-09-23 12:48 | PN ---
Subjective Date of Service: 09/23/18 Interval History: pt 's pain is controlled. still cannot feel or move left foot Objective Active Medications: Acetaminophen (Tylenol Tab*) 650 mg PO Q6H PRN PRN Reason: PAIN OR TEMPERATURE Cetirizine HCl (Zyrtec*) 10 mg PO DAILY [facility] Last Admin: 09/23/18 08:43 Dose: 10 mg Diphenhydramine HCl (Benadryl Iv*) 25 mg IV Q6H PRN PRN Reason: itching Diphenhydramine HCl (Benadryl Po*) 25 mg PO Q4H PRN PRN Reason: ITCHING Last Admin: 09/20/18 19:55 Dose: 25 mg Docusate Sodium (Colace Cap*) 100 mg PO BID [facility] Last Admin: 09/23/18 08:43 Dose: 100 mg Folic Acid (Folvite Tab*) 1 mg PO DAILY [facility] Last Admin: 09/23/18 08:43 Dose: 1 mg Heparin Sodium (Porcine) (Heparin Vial(*)) 5,000 units SUBCUT Q8H [facility] Last Admin: 09/23/18 06:06 Dose: 5,000 units Sodium Bicarbonate 150 meq/ (Dextrose) 1,150 mls @ 200 mls/hr IVPB Q6H [facility] Last Admin: 09/23/18 08:42 Dose: 200 mls/hr Lidocaine (Xylocaine 2% Viscous*) 15 ml SWISH SPIT TID PRN PRN Reason: PAIN Last Admin: 09/23/18 08:01 Dose: 15 ml Lorazepam (Ativan Tab(*)) 1 mg PO Q6H PRN PRN Reason: ANXIETY Montelukast Sodium (Singulair Tab*) 10 mg PO DAILY [facility] Last Admin: 09/23/18 08:43 Dose: 10 mg Morphine Sulfate (Morphine Vial*) 2 mg IV Q2H PRN PRN Reason: PAIN Last Admin: 09/23/18 02:41 Dose: 2 mg Morphine Sulfate (Morphine Vial*) 4 mg IV Q4H PRN PRN Reason: PAIN Last Admin: 09/21/18 14:27 Dose: 4 mg Multivitamins/Minerals (Theragran/Minerals Tab*) 1 tab PO DAILY [facility] Last Admin: 09/23/18 08:43 Dose: 1 tab Ondansetron HCl (Zofran Inj*) 4 mg IV Q6H PRN PRN Reason: nausea Oxycodone HCl (Roxycodone Tab*) 10 mg PO Q4H PRN PRN Reason: PAIN - SEVERE Last Admin: 09/21/18 22:07 Dose: 10 mg Oxycodone/Acetaminophen (Percocet 5/325 Tab*) 1 tab PO Q4H PRN PRN Reason: PAIN Oxycodone/Acetaminophen (Percocet 5/325 Tab*) 2 tab PO Q4H PRN PRN Reason: PAIN Last Admin: 09/23/18 05:57 Dose: 2 tab Pantoprazole Sodium (Protonix Tab *) 40 mg PO DAILY [facility] Last Admin: 09/23/18 08:43 Dose: 40 mg Pharmacy Consult (Vancomycin Per Pharmacy*) 1 note FOLLOW UP .VANC PER PHARMACY [facility] Thiamine HCl (Vitamin B-1 Tab*) 100 mg PO DAILY [facility] Last Admin: 09/23/18 08:43 Dose: 100 mg Venlafaxine HCl (Effexor Xr Cap*) 150 mg PO DAILY [facility] Last Admin: 09/23/18 08:44 Dose: 150 mg Vital Signs - 8 hr 09/23/18 09/23/18 09/23/18 02:41 02:45 02:46 Temperature Pulse Rate Respiratory 17 17 17 Rate Blood Pressure (mmHg) O2 Sat by Pulse Oximetry 09/23/18 09/23/18 09/23/18 04:23 05:12 05:57 Temperature 97.3 F Pulse Rate 89 Respiratory 16 16 17 Rate Blood Pressure 121/74 (mmHg) O2 Sat by Pulse 95 Oximetry 09/23/18 08:44 Temperature Pulse Rate Respiratory 18 Rate Blood Pressure (mmHg) O2 Sat by Pulse Oximetry Oxygen Devices in Use Now: None Appearance: 47 yo F in nAD, aAOx3 Eyes: No Scleral Icterus, PERRLA Ears/Nose/Mouth/Throat: NL Teeth, Lips, Gums, Mucous Membranes Moist Neck: NL Appearance and Movements; NL JVP, Trachea Midline Respiratory: Symmetrical Chest Expansion and Respiratory Effort, Clear to Auscultation Cardiovascular: NL Sounds; No Murmurs; No JVD, RRR, No Edema Abdominal: NL Sounds; No Tenderness; No Distention Lymphatic: No Cervical Adenopathy Extremities: No Clubbing, Cyanosis, - - left foot and thigh edema, callf covered in post op dresssings-not removed Skin: No Nodules or Sclerosis Neurological: Alert and Oriented x 3, - - no sensation to pain or temperature in left foot, unable to move left foot, Babinski neg b/l Result Diagrams: 09/23/18 05:52 09/23/18 05:52 Microbiology and Other Data: Microbiology 09/20/18 02:35 Nasal Screen MRSA (PCR) - Final Nasal Mrsa Not Detected Assess/Plan/Problems-Billing Assessment: 47 yo f with h/o pysubstance abuse, anxiety depression, now on Suboxone and Clonazepam presented with left leg compartment syndrome after syncope , poss. OD. - Patient Problems (1) Compartment syndrome Comment: of L calf. Likely due to rhabdo-no trauma hx noted. Pt is unable to move left foot, also loss of sensation in left foot- ortho aware S/p OR on 09/20/[address] Calloway, OR with DR. Appiah and Vac placement on 09/21/18, planned to go to OR again on Tuesday09/24/18 Rhabdomyolysis slowly resolving, CPK lower today (2) Acute renal failure Comment: due to severe rhabdo appreciate Dr. Hanley consult. Cont bicarb gtt at 200 ml /hr. As d/w nephrology will cont current IVF, creat peaked today Renal US unremarkable (3) LFT elevation Comment: due to a combination of rhabdo and low prefusion state. Pt has h/o Hep C treated in the past improving (4) Chronic, continuous use of opioids Comment: suboxone held post op (5) Cellulitis Comment: of left calf noted intraop. cont Vanc as per ortho. no visible skin infection noted of the uncovered portion of left leg (6) DVT prophylaxis Comment: HSQ Status and Disposition: inpatient
--- NOTE | 2018-09-23 12:49 | PN ---
Progress Note - Progress Note Date of Service: 09/23/18 SOAP: Subjective: Patient is doing well. She does complain of pain, improved with medication. Wound vac still functioning. Denies F/C, or CP/SOB. Objective: PE: 47 y.o WDWN F LLE- Wound vac and light DEEPTHI wrap dressings dry and intact LLE, Foot is pale but warm, unable dorsiflex the ankle or toes, full F/E knee, no w/e of knee, insensate to light touch entire dorsal foot/toes and entire plantar aspect of foot, small patch of sensation superior to the medial malleolar region, lateral ankle insensate as well as lateral, posterior, medial gastroc regions. +2 DP pulse Vital Signs Temp Pulse Resp BP Pulse Ox 98.3 F 86 20 120/74 97 09/23/18 07:53 09/23/18 07:53 09/23/18 10:17 09/23/18 07:53 09/23/18 07:53 Laboratory Results - last 24 hr 09/22/18 09/22/18 09/23/18 13:40 13:40 05:52 WBC RBC Hgb Hct MCV MCH MCHC RDW Plt Count MPV Neut % (Auto) Lymph % (Auto) [place] % (Auto) Eos % (Auto) Baso % (Auto) Absolute Neuts (auto) Absolute Lymphs (auto) Absolute Monos (auto) Absolute Eos (auto) Absolute Basos (auto) Absolute Nucleated RBC Nucleated RBC % Sodium 140 Potassium 3.4 L Chloride 102 Carbon Dioxide 29 Anion Gap 9 BUN 48 H Creatinine 6.15 H 6.11 H Est GFR ( Amer) 8.9 9.0 Est GFR (Non-Af Amer) 7.4 7.4 BUN/Creatinine Ratio 7.9 L Glucose 140 H Calcium 7.2 L Phosphorus 6.0 H Magnesium 2.0 Total Bilirubin 0.30 Direct Bilirubin 0.10 Indirect Bilirubin 0.2 L AST 514 H ALT 25 Alkaline Phosphatase 194 H Total Creatine Kinase 13646 H Total Protein 4.6 L Albumin 2.3 L Globulin 2.3 Albumin/Globulin Ratio 1.0 Random Vancomycin 21.8 14.9 09/23/18 05:52 WBC 10.6 RBC 3.01 L Hgb 9.1 L Hct 26 L MCV 86 MCH 30 MCHC 35 RDW 14 Plt Count 172 MPV 8.4 Neut % (Auto) 71.5 Lymph % (Auto) 12.0 [place] % (Auto) 14.9 Eos % (Auto) 1.2 Baso % (Auto) 0.4 Absolute Neuts (auto) 7.6 Absolute Lymphs (auto) 1.3 Absolute Monos (auto) 1.6 H Absolute Eos (auto) 0.1 Absolute Basos (auto) 0 Absolute Nucleated RBC 0 Nucleated RBC % 0 Sodium Potassium Chloride Carbon Dioxide Anion Gap BUN Creatinine Est GFR ( Amer) Est GFR (Non-Af Amer) BUN/Creatinine Ratio Glucose Calcium Phosphorus Magnesium Total Bilirubin Direct Bilirubin Indirect Bilirubin AST ALT Alkaline Phosphatase Total Creatine Kinase Total Protein Albumin Globulin Albumin/Globulin Ratio Random Vancomycin Assessment: Acute Compartment syndrome left leg Insensate left foot with no active motor function s/p 4 compartment fasciotomy and extensive debridement necrotic tissue left calf POD #2 IVDU Rhabdomyolysis Plan: []NPO after midnight Tuesday night- return to OR with Dr. Wen on 09/25/18 for additional debridement necrotic tissue Multi podis boot ordered to prevent contracture Achilles, off for skin care and bathing Kidney function continues to improve PT- non weight bearing LLE Vanco dosed per pharmacy for leg cellulitis- improving
[2018-09-23] MEDS ORDERED: Vancomycin(*) 1,000 MG in NS 0.9% 250 ML* 250 ML IVPB ONE (14:00)
[2018-09-24] MEDS: Morphine VIAL* 4 MG/ML VIAL (1 ml vial) IV PRN ×3 (00:52→10:45)
[2018-09-24] MEDS: Sodium Bicarbonate 8.4% IV* 150 MEQ in D5W 1000 ML BAG* 1,000 ML IVPB SCH ×2 (02:26→08:28)
[2018-09-24] MEDS: oxyCODONE/Acetamin 5/325 MG* TAB PO PRN ×5 (03:01→23:06)
[2018-09-24 05:03] LABS: ABS Basophils 0 10^3/ul (0-0.2); ABS Eosinophils 0.2 10^3/ul (0-0.6); ABS Lymphocytes 1.1 10^3/ul (1.0-4.8); ABS Monocytes 1.4 10^3/ul (0-0.8); ABS Neutrophils 6.4 10^3/ul (1.5-7.7); ABS Nucleated RBC 0 10^3/ul; Eosinophil % 1.8 %; Hematocrit 25 % (35-47); Hemoglobin 8.7 g/dl (12.0-16.0); Lymphocyte % 11.7 %; Mean Corpuscular HGB Conc 34 g/dl (31-36); Mean Corpuscular Hemoglobin 30 pg (27-31); Mean Corpuscular Volume 87 fL (80-97); Mean Platelet Volume 8.3 fL (7.4-10.4); Nucleated Red Blood Cells % 0; Platelet Count 178 10^3/ul (150-450); Red Blood Count 2.92 10^6/ul (4.00-5.40); Red Cell Distribution Width 14 % (10.5-15)
[2018-09-24 05:25] LABS: BUN/Creatinine Ratio 7.6 (8-20); Calcium 7.1 mg/dL (8.6-10.3); EGFR African American 9.1 (>60); EGFR Non-African American 7.5 (>60); Potassium 3.1 mmol/L (3.5-5.0)
[2018-09-24] MEDS ORDERED: Vancomycin Random Level* NOTE FOLLOW UP ONE (06:00)
[2018-09-24 06:19] LABS: Vancomycin Random 21.3 mcg/mL
[2018-09-24] MEDS: Heparin VIAL(*) 5000 UNITS/ML VIAL (FIVE THOUSAND) SUBCUT SCH ×3 (07:49→23:08)
[2018-09-24] MEDS: Folic Acid TAB* 1 MG PO SCH (07:51)
[2018-09-24] MEDS: Cetirizine* 10 MG TAB PO SCH (07:51)
[2018-09-24] MEDS: Venlafaxine EXT RELEASE CAP* 75 MG PO SCH (07:51)
[2018-09-24] MEDS: Montelukast Sodium TAB* 10 MG PO SCH (07:52)
[2018-09-24] MEDS: Docusate CAP* 100 MG PO SCH ×2 (07:52→20:12)
[2018-09-24] MEDS: Pantoprazole TAB * 40 MG TAB PO SCH (07:52)
[2018-09-24] MEDS: Multivitamins/Minerals TAB PO SCH (07:53)
[2018-09-24] MEDS: Thiamine TAB* 100 MG TAB PO SCH (07:53)
[2018-09-24] MEDS: NS 0.9% 1000 ML** 1,000 ML IV SCH ×3 (08:29→23:07)
[2018-09-24] MEDS: Lidocaine 2% VISCOUS* 15 ML UDC SWISH SPIT PRN (08:29)
--- NOTE | 2018-09-24 08:51 | PN ---
Subjective Date of Service: 09/24/18 Interval History: No new complaints. Stood up on both feet last night, but stile unable to feels or move left foot Objective Active Medications: Acetaminophen (Tylenol Tab*) 650 mg PO Q6H PRN PRN Reason: PAIN OR TEMPERATURE Cetirizine HCl (Zyrtec*) 10 mg PO DAILY [facility] Last Admin: 09/24/18 07:51 Dose: 10 mg Diphenhydramine HCl (Benadryl Iv*) 25 mg IV Q6H PRN PRN Reason: itching Diphenhydramine HCl (Benadryl Po*) 25 mg PO Q4H PRN PRN Reason: ITCHING Last Admin: 09/20/18 19:55 Dose: 25 mg Docusate Sodium (Colace Cap*) 100 mg PO BID [facility] Last Admin: 09/24/18 07:52 Dose: 100 mg Folic Acid (Folvite Tab*) 1 mg PO DAILY [facility] Last Admin: 09/24/18 07:51 Dose: 1 mg Heparin Sodium (Porcine) (Heparin Vial(*)) 5,000 units SUBCUT Q8H [facility] Last Admin: 09/24/18 07:49 Dose: 5,000 units Sodium Chloride (Ns 0.9% 1000 Ml*) 1,000 mls @ 150 mls/hr IV PER RATE [facility] Last Admin: 09/24/18 08:29 Dose: 150 mls/hr Lidocaine (Xylocaine 2% Viscous*) 15 ml SWISH SPIT TID PRN PRN Reason: PAIN Last Admin: 09/24/18 08:29 Dose: 15 ml Lorazepam (Ativan Tab(*)) 1 mg PO Q6H PRN PRN Reason: ANXIETY Montelukast Sodium (Singulair Tab*) 10 mg PO DAILY [facility] Last Admin: 09/24/18 07:52 Dose: 10 mg Morphine Sulfate (Morphine Vial*) 2 mg IV Q2H PRN PRN Reason: PAIN Last Admin: 09/24/18 03:44 Dose: 2 mg Multivitamins/Minerals (Theragran/Minerals Tab*) 1 tab PO DAILY [facility] Last Admin: 09/24/18 07:53 Dose: 1 tab Ondansetron HCl (Zofran Inj*) 4 mg IV Q6H PRN PRN Reason: nausea Oxycodone HCl (Roxycodone Tab*) 10 mg PO Q4H PRN PRN Reason: PAIN - SEVERE Last Admin: 09/21/18 22:07 Dose: 10 mg Oxycodone/Acetaminophen (Percocet 5/325 Tab*) 1 tab PO Q4H PRN PRN Reason: PAIN Oxycodone/Acetaminophen (Percocet 5/325 Tab*) 2 tab PO Q4H PRN PRN Reason: PAIN Last Admin: 09/24/18 07:55 Dose: 2 tab Pantoprazole Sodium (Protonix Tab *) 40 mg PO DAILY [facility] Last Admin: 09/24/18 07:52 Dose: 40 mg Pharmacy Consult (Vancomycin Per Pharmacy*) 1 note FOLLOW UP .VANC PER PHARMACY [facility] Thiamine HCl (Vitamin B-1 Tab*) 100 mg PO DAILY [facility] Last Admin: 09/24/18 07:53 Dose: 100 mg Venlafaxine HCl (Effexor Xr Cap*) 150 mg PO DAILY [facility] Last Admin: 09/24/18 07:51 Dose: 150 mg Vital Signs - 8 hr 09/24/18 09/24/18 09/24/18 00:52 02:09 03:01 Temperature Pulse Rate Respiratory 18 16 18 Rate Blood Pressure (mmHg) O2 Sat by Pulse Oximetry 09/24/18 09/24/18 09/24/18 03:22 03:44 04:48 Temperature 98.0 F Pulse Rate 88 Respiratory 16 18 16 Rate Blood Pressure 112/72 (mmHg) O2 Sat by Pulse 97 Oximetry 09/24/18 09/24/18 07:55 08:00 Temperature 97.7 F Pulse Rate 84 Respiratory 16 16 Rate Blood Pressure 123/76 (mmHg) O2 Sat by Pulse 98 Oximetry Oxygen Devices in Use Now: None Appearance: 47 yo F in nAD, aAOx3 Eyes: No Scleral Icterus, PERRLA Ears/Nose/Mouth/Throat: NL Teeth, Lips, Gums, Mucous Membranes Moist Neck: NL Appearance and Movements; NL JVP, Trachea Midline Respiratory: Symmetrical Chest Expansion and Respiratory Effort, Clear to Auscultation Cardiovascular: NL Sounds; No Murmurs; No JVD, RRR Abdominal: NL Sounds; No Tenderness; No Distention, No Hepatosplenomegaly Lymphatic: No Cervical Adenopathy Extremities: No Clubbing, Cyanosis, - - left foot joshua. wound vac in place in lef leg below the knee. Post op dressings intact Skin: No Rash or Ulcers, No Nodules or Sclerosis Neurological: Alert and Oriented x 3, - - unable to move /loss of sensationin left foot Result Diagrams: 09/24/18 04:37 09/24/18 04:37 Microbiology and Other Data: Microbiology 09/20/18 02:35 Nasal Screen MRSA (PCR) - Final Nasal Mrsa Not Detected Assess/Plan/Problems-Billing Assessment: 47 yo f with h/o pysubstance abuse, anxiety depression, now on Suboxone and Clonazepam presented with left leg compartment syndrome after syncope , poss. OD. - Patient Problems (1) Compartment syndrome Comment: of L calf. Likely due to rhabdo-no trauma hx noted. Pt is unable to move left foot, also loss of sensation in left foot- ortho aware S/p OR on 09/20/[address] Calloway, OR with DR. Appiah and Vac placement on 09/21/18, planned to go to OR again on Tuesday09/24/18 Rhabdomyolysis slowly resolving, CPK lower today (2) Acute renal failure Comment: due to severe rhabdo appreciate Dr. Hanley consult. on bicarb gtt at 200 ml /hr from 09/21/18 to . bicarb high on BMP today, will switch to NS at 150 ml/hr. creat peaked at 6.15 on 09/22/18 Renal US unremarkable (3) LFT elevation Comment: due to a combination of rhabdo and low prefusion state. Pt has h/o Hep C treated in the past improving (4) Chronic, continuous use of opioids Comment: suboxone held post op On narcotic pain management post op (5) Cellulitis Comment: of left calf noted intraop. cont Vanc as per ortho. no visible skin infection noted of the uncovered portion of left leg (6) DVT prophylaxis Comment: HSQ-will be held tonight/preop Status and Disposition: inpatient
--- NOTE | 2018-09-24 12:57 | PN ---
Progress Note - Progress Note Date of Service: 09/24/18 SOAP: Subjective: Pt is doing well. She is tired. Pain is controlled. Denies F/C or CP/SOB Objective: PE- 47 y/o WDWN F NAD LLE- dressing c/d/i, wound vac working, compartment are compressible with mild tenderness, insensate to dorsum of foot, all 5 digits, and over lateral malleolus, sensation intact over medial and lateral aspect of left lower leg, sensation intact over knee, unable to actively DF/PF ankle or F/E toes, foot pale, brisk cap refill, + 2 DP pulse palpable Vital Signs Temp Pulse Resp BP Pulse Ox 98.3 F 81 16 126/74 94 09/24/18 11:17 09/24/18 11:17 09/24/18 11:17 09/24/18 11:17 09/24/18 11:17 Laboratory Results - last 24 hr 09/24/18 09/24/18 04:37 04:37 WBC 9.0 RBC 2.92 L Hgb 8.7 L Hct 25 L MCV 87 MCH 30 MCHC 34 RDW 14 Plt Count 178 MPV 8.3 Neut % (Auto) 70.7 Lymph % (Auto) 11.7 [place] % (Auto) 15.5 Eos % (Auto) 1.8 Baso % (Auto) 0.3 Absolute Neuts (auto) 6.4 Absolute Lymphs (auto) 1.1 Absolute Monos (auto) 1.4 H Absolute Eos (auto) 0.2 Absolute Basos (auto) 0 Absolute Nucleated RBC 0 Nucleated RBC % 0 Sodium 140 Potassium 3.1 L Chloride 94 L Carbon Dioxide 41 H* Anion Gap 5 BUN 46 H Creatinine 6.03 H Est GFR ( Amer) 9.1 Est GFR (Non-Af Amer) 7.5 BUN/Creatinine Ratio 7.6 L Glucose 139 H Calcium 7.1 L Total Creatine Kinase 85060 H Random Vancomycin 21.3 Assessment: Acute Compartment syndrome left leg Insensate left foot with no active motor function s/p 4 compartment fasciotomy and extensive debridement necrotic tissue left calf POD #3 IVDU Rhabdomyolysis Plan: []NPO after midnight Tuesday night- return to OR with Dr. Wen on 09/25/18 for additional debridement necrotic tissue Cont Multi podis boot ordered to prevent contracture Achilles, off for skin care and bathing Kidney function continues to improve PT- non weight bearing LLE, OOB Vanco dosed per pharmacy for leg cellulitis- improving
[2018-09-24] MEDS: oxyCODONE TAB* 5 MG TAB PO PRN ×2 (16:03→20:12)
[2018-09-25] MEDS: oxyCODONE TAB* 5 MG TAB PO PRN ×2 (04:15→17:17)
[2018-09-25] MEDS: NS 0.9% 1000 ML** 1,000 ML IV SCH (05:52)
[2018-09-25] MEDS: Morphine VIAL* 4 MG/ML VIAL (1 ml vial) IV PRN ×4 (05:56→17:06)
[2018-09-25 06:14] LABS: ABS Basophils 0.1 10^3/ul (0-0.2); ABS Eosinophils 0.2 10^3/ul (0-0.6); ABS Lymphocytes 1.3 10^3/ul (1.0-4.8); ABS Monocytes 1.5 10^3/ul (0-0.8); ABS Neutrophils 6.7 10^3/ul (1.5-7.7); ABS Nucleated RBC 0 10^3/ul; Eosinophil % 2.3 %; Hematocrit 25 % (35-47); Hemoglobin 8.5 g/dl (12.0-16.0); Lymphocyte % 13.4 %; Mean Corpuscular HGB Conc 34 g/dl (31-36); Mean Corpuscular Hemoglobin 29 pg (27-31); Mean Corpuscular Volume 86 fL (80-97); Mean Platelet Volume 8.3 fL (7.4-10.4); Nucleated Red Blood Cells % 0; Platelet Count 207 10^3/ul (150-450); Red Blood Count 2.87 10^6/ul (4.00-5.40); Red Cell Distribution Width 14 % (10.5-15); White Blood Count 9.8 10^3/ul (3.5-10.8)
[2018-09-25 06:34] LABS: BUN/Creatinine Ratio 7.8 (8-20); Calcium 7.2 mg/dL (8.6-10.3); EGFR African American 9.3 (>60); EGFR Non-African American 7.7 (>60); Magnesium 2.2 mg/dL (1.9-2.7); Phosphorus 5.6 mg/dL (2.5-5.0); Potassium 3.3 mmol/L (3.5-5.0); Vancomycin Trough 15.6 mcg/mL
[2018-09-25] MEDS: Thiamine TAB* 100 MG TAB PO SCH (09:38)
[2018-09-25] MEDS: Folic Acid TAB* 1 MG PO SCH (09:38)
[2018-09-25] MEDS: Docusate CAP* 100 MG PO SCH ×2 (09:38→20:56)
[2018-09-25] MEDS: Cetirizine* 10 MG TAB PO SCH (09:38)
[2018-09-25] MEDS: Pantoprazole TAB * 40 MG TAB PO SCH (09:38)
[2018-09-25] MEDS: Multivitamins/Minerals TAB PO SCH (09:38)
[2018-09-25] MEDS: Montelukast Sodium TAB* 10 MG PO SCH (09:38)
[2018-09-25] MEDS: Venlafaxine EXT RELEASE CAP* 75 MG PO SCH (09:39)
[2018-09-25] MEDS ORDERED: Vancomycin(*) 750 MG in NS 0.9% 250 ML* 250 ML IVPB ONE (12:00)
[2018-09-25] MEDS ORDERED: fentaNYL* 50 MCG/ML 2 ML VIAL (100 MCG VIAL) ONE ×3 (13:38→16:07)
[2018-09-25] MEDS ORDERED: Midazolam* 1 MG/ML 2 ML VIAL (2 MG) ONE (13:38)
[2018-09-25] MEDS ORDERED: Famotidine IV* 10 MG/ML 2 ML (20 mg) ONE (14:24)
[2018-09-25] MEDS ORDERED: Lidocaine 2% PF * 5 ML VIAL ONE (14:36)
[2018-09-25] MEDS ORDERED: Dexamethasone IV* 4 MG/ML 1 ML (4 MG) ONE (14:40)
[2018-09-25] MEDS ORDERED: Propofol* 10 MG/ML 20 ML BTL ONE (14:40)
[2018-09-25] MEDS ORDERED: Bupivacaine 0.5%* 50 ML VIAL ONE (14:55)
[2018-09-25] MEDS ORDERED: Buffered Lidocaine 1% SYRIN* 1 ML/SYRINGE INTRADERM ONE (15:08)
[2018-09-25] MEDS ORDERED: Naloxone* 0.4 MG/ML 1 ML VIAL IV PRN (15:10)
[2018-09-25] MEDS ORDERED: DiMENhydriNATE IV* 50 MG/ML VIAL IV PUSH PRN (15:10)
[2018-09-25] MEDS ORDERED: PROCHLORPERAZINE INJ 5 MG/ML 2 ML VIAL IV PRN (15:10)
[2018-09-25] MEDS ORDERED: Levalbuterol 0.63MG/3ML NEB* UNIT OF USE INH PRN (15:10)
--- NOTE | 2018-09-25 15:55 | PN ---
Subjective Date of Service: 09/25/18 Interval History: Patient seen and examined. Returned from PACU, discussed status extensively with patient. She is visibly anxious and scared, tearful. States the pain in her leg is very high and her anxiety is increasing. Denies fever or chills, no SOB, no chest pain, no n/v. Objective Active Medications: Acetaminophen (Tylenol Tab*) 650 mg PO Q6H PRN PRN Reason: PAIN OR TEMPERATURE Cetirizine HCl (Zyrtec*) 10 mg PO DAILY [facility] Last Admin: 09/25/18 09:38 Dose: Not Given Dimenhydrinate (Dramamine Iv*) 25 mg IV PUSH ONCE PRN PRN Reason: NAUSEA/VOMITING Diphenhydramine HCl (Benadryl Iv*) 25 mg IV Q6H PRN PRN Reason: itching Diphenhydramine HCl (Benadryl Po*) 25 mg PO Q4H PRN PRN Reason: ITCHING Last Admin: 09/20/18 19:55 Dose: 25 mg Docusate Sodium (Colace Cap*) 100 mg PO BID [facility] Last Admin: 09/25/18 09:38 Dose: Not Given Fentanyl Citrate (Fentanyl*) 50 mcg IV Q5M PRN PRN Reason: PAIN - MODERATE Folic Acid (Folvite Tab*) 1 mg PO DAILY [facility] Last Admin: 09/25/18 09:38 Dose: Not Given Sodium Chloride (Ns 0.9% 1000 Ml*) 1,000 mls @ 150 mls/hr IV PER RATE [facility] Last Admin: 09/25/18 05:52 Dose: 150 mls/hr Lactated Ringer's (Lactated Ringers 1000 Ml Bag*) 1,000 mls @ 125 mls/hr IV PER RATE [facility] Levalbuterol HCl (Xopenex 0.63mg/3ml Neb*) 0.63 mg INH ONCE PRN PRN Reason: SOB/WHEEZING Lidocaine (Xylocaine 2% Viscous*) 15 ml SWISH SPIT TID PRN PRN Reason: PAIN Last Admin: 09/24/18 08:29 Dose: 15 ml Lidocaine/Sodium Bicarbonate (Buffered Lidocaine 1% Syrin*) 0.2 ml INTRADERM ONCE ONE Stop: 09/25/18 15:09 Lorazepam (Ativan Tab(*)) 1 mg PO Q6H PRN PRN Reason: ANXIETY Montelukast Sodium (Singulair Tab*) 10 mg PO DAILY [facility] Last Admin: 09/25/18 09:38 Dose: Not Given Morphine Sulfate (Morphine Vial*) 2 mg IV Q2H PRN PRN Reason: PAIN Last Admin: 09/25/18 11:49 Dose: 2 mg Multivitamins/Minerals (Theragran/Minerals Tab*) 1 tab PO DAILY [facility] Last Admin: 09/25/18 09:38 Dose: Not Given Naloxone HCl (Narcan*) 0.08 mg IV Q2M PRN PRN Reason: severe induced resp depression Ondansetron HCl (Zofran Inj*) 4 mg IV Q6H PRN PRN Reason: nausea Oxycodone HCl (Roxycodone Tab*) 10 mg PO Q4H PRN PRN Reason: PAIN - SEVERE Last Admin: 09/25/18 04:15 Dose: 10 mg Oxycodone/Acetaminophen (Percocet 5/325 Tab*) 1 tab PO Q4H PRN PRN Reason: PAIN Oxycodone/Acetaminophen (Percocet 5/325 Tab*) 2 tab PO Q4H PRN PRN Reason: PAIN Last Admin: 09/24/18 23:06 Dose: 2 tab Pantoprazole Sodium (Protonix Tab *) 40 mg PO DAILY [facility] Last Admin: 09/25/18 09:38 Dose: Not Given Pharmacy Consult (Vancomycin Per Pharmacy*) 1 note FOLLOW UP .VANC PER PHARMACY [facility] Pharmacy Consult (Vancomycin Random Level*) 1 note FOLLOW UP 0600 ONE Stop: 09/26/18 06:01 Prochlorperazine Edisylate (Compazine Inj*) 5 mg IV ONCE PRN PRN Reason: NAUSEA/VOMITING Thiamine HCl (Vitamin B-1 Tab*) 100 mg PO DAILY [facility] Last Admin: 09/25/18 09:38 Dose: Not Given Venlafaxine HCl (Effexor Xr Cap*) 150 mg PO DAILY [facility] Last Admin: 09/25/18 09:39 Dose: Not Given Vital Signs - 8 hr 09/25/18 09/25/18 09/25/18 08:00 09:37 11:32 Temperature 98.0 F Pulse Rate 90 Respiratory 18 18 18 Rate Blood Pressure 118/75 (mmHg) O2 Sat by Pulse 94 Oximetry 09/25/18 09/25/18 11:49 12:40 Temperature Pulse Rate Respiratory 18 18 Rate Blood Pressure (mmHg) O2 Sat by Pulse Oximetry Oxygen Devices in Use Now: None Appearance: alert, jumpy, anxious, tearful Eyes: No Scleral Icterus, PERRLA Ears/Nose/Mouth/Throat: Mucous Membranes Moist Neck: NL Appearance and Movements; NL JVP, Trachea Midline Respiratory: Symmetrical Chest Expansion and Respiratory Effort, Clear to Auscultation Cardiovascular: NL Sounds; No Murmurs; No JVD, RRR, No Edema Abdominal: NL Sounds; No Tenderness; No Distention Extremities: - - LLE wrapped, CDI, +2 pedal pulse Skin: - - surgical wounds not visualized, wound vac in place Neurological: Alert and Oriented x 3 Nutrition: Taking PO's Result Diagrams: 09/25/18 06:06 09/25/18 06:06 Microbiology and Other Data: Microbiology 09/20/18 02:35 Nasal Screen MRSA (PCR) - Final Nasal Mrsa Not Detected Diagnostic Imaging: Patient Name: EDD LOVING Medical Record#: [id number] Ordering Physician: Radha Ruvalcaba MD Acct.#: [id number] : 1970 Age: 47 Sex: F Location: SURGICAL STAY UNIT Exam Date: 09/20/181746 ADM Status: ADM IN Order Information: US RENAL COMPLETE Accession Number: [id number] CPT: 87671 EXAM: US Retroperitoneal Limited, Kidneys EXAM DATE/TIME: 09/20/2018 6:15 PM CLINICAL HISTORY: 47 years old, female; Signs and symptoms; Other: [place]lig[place]; Additional info: Re: Arf TECHNIQUE: Real-time ultrasound of the retroperitoneum with image documentation. Examination was focused on the kidneys. COMPARISON: No relevant prior studies available. FINDINGS: Right kidney: Right kidney measures 12.9 x 6.2 x 6.4 cm. No hydronephrosis, stone or mass. Left kidney: Left kidney measures 11.3 x 6.4 x 6.3 cm. Bladder: The bladder is not evaluated. IMPRESSION: No hydronephrosis, stone or mass. To contact [facility] with a general question: Operations Center - [phone] For direct physician to physician contact: Physician Hotline - [phone] [facility] ([facility] Facility ID #[id number]) <Electronically signed by Alec Morales MD in OV> 09/20/181855 Dictated By: Alec Morales MD Dictated Date/Time: 09/20/181855 Transcribed Date/Time: Copy to: CC:Jerrod Rossi MD; Jeovany Huang MD; Radha Ruvalcaba MD Imaging - [facility] Imaging - [facility] Imaging - [facility] This report is only to be considered final once signed by the Provider(s) as displayed in the "<Electronically Signed by >" field (s). Absence of a signature indicates the report is in a draft status and still needs to be finalized. In the event this document was created by someone other than the signing Provider, the individual initiating the document will be listed in the "Entered by:" or "Dictated by:" mustafa. 1 of 2 Assess/Plan/Problems-Billing Assessment: This is a 47 yo f with h/o polysubstance abuse, anxiety/depression, now on Suboxone and Clonazepam presented with left leg compartment syndrome after syncope and collapse 2/2 potential overdose. - Patient Problems (1) Compartment syndrome Code(s): T79.A0XA - COMPARTMENT SYNDROME, UNSPECIFIED, INITIAL ENCOUNTER SNOMED Code(s): 977076433 Comment: - Unclear cause, may have been trauma during syncope/overdose, patient has no recollection of events - s/p fasciotomy and debridement 09/20/18 - Back to the OR today with Dr. Wen for debridement and limb-sparing, risk for amputation; loss of sensation in the foot - Defer to orthopedics for continued management (2) Acute tubular necrosis Code(s): N17.0 - ACUTE KIDNEY FAILURE WITH TUBULAR NECROSIS SNOMED Code(s): 06990636 Comment: - Ischemic ATN vs GN in the presence of severe rhabo - Urine with RBCs, no casts noted - Creat at 5.91 today, may have reached saurabh (>6.00 last 4 days), maintenance vs. recovery phase, follow serum creatinine daily - continue aggressive IV fluid management - Check urine sodium, protein, creatinine (3) Rhabdomyolysis Code(s): M62.82 - RHABDOMYOLYSIS SNOMED Code(s): 584437188 Comment: - CPK almost 70K at admission - down to 10K today - Continue IVF, monitor renal function (4) Cellulitis Code(s): L03.90 - CELLULITIS, UNSPECIFIED SNOMED Code(s): 511204973 Comment: - LLE, knee area - Renally dosed Vanco as per ortho with random troughs - Given hx of IVDU, will consult Dr. Shelby to further manage atbx - New cultures from OR today, follow results (5) Anxiety and depression Code(s): F41.9 - ANXIETY DISORDER, UNSPECIFIED; F32.9 - MAJOR DEPRESSIVE DISORDER, SINGLE EPISODE, UNSPECIFIED SNOMED Code(s): 31450741 Comment: - On Effexor and ativan - supportive care provided (6) Tobacco use disorder Code(s): F17.200 - NICOTINE DEPENDENCE, UNSPECIFIED, UNCOMPLICATED SNOMED Code (s): 386233819 Comment: - Cessation encouraged (7) Polysubstance (including opioids) dependence w/o physiol dependence Code(s): F19.20 - OTHER PSYCHOACTIVE SUBSTANCE DEPENDENCE, UNCOMPLICATED SNOMED Code(s): 96034637 Comment: - Has been on suboxone at [facility] - suboxone on hold while inpatient and acutely ill - Evaluated analgesics ordered, extensive discussion about pain mgmt in the presence of substance abuse disorder (8) DVT prophylaxis Code(s): YYD3400 - SNOMED Code(s): 063875186 Comment: - Restart HSQ post-op Status and Disposition: Inpatient, dispo TBD, status: guarded
[2018-09-25] MEDS: fentaNYL* 50 MCG/ML 2 ML VIAL (100 MCG VIAL) IV PRN ×4 (16:01→16:21)
[2018-09-25] MEDS: LORazepam TAB(*) 1 MG PO PRN (17:17)
[2018-09-25] MEDS: Lactated Ringers 1000 ML Bag* 1,000 ML IV SCH (17:23)
[2018-09-25] MEDS: oxyCODONE/Acetamin 5/325 MG* TAB PO PRN (20:57)
[2018-09-25] MEDS: Heparin VIAL(*) 5000 UNITS/ML VIAL (FIVE THOUSAND) SUBCUT SCH (20:57)
--- NOTE | 2018-09-25 23:06 | OP ---
DATE OF OPERATION: 09/25/18 - ROOM #[id number] DATE OF : 74 SURGEON: Jorge Luis Wen MD [employer] SUPERVISOR: ANN MARIE Trevino PRE-OP DIAGNOSIS: Compartment syndrome with ischemia left calf muscles. POST-OP DIAGNOSIS: Compartment syndrome with ischemia left calf muscles with complete necrosis deep posterior compartment and spreading necrosis lateral compartment. OPERATIVE PROCEDURE: Debridement of these two above compartments and placement of the medial-lateral VAC dressing. DESCRIPTION OF PROCEDURE: The patient was taken to the operating room where general anesthesia was given. We began the procedure with the tourniquet down, but encountered fresh bleeding and brisk bleeding at some of the edges of the debridement. So, the tourniquet was raised half-way through. The tourniquet time was about 20 minutes or so. It was a sterile tourniquet. We opened up the lateral compartment removing the VAC dressing. The anterior compartment was ochoa and ischemic. We removed probably 30 cc of tissue from the anterior compartment. The more lateral peroneal compartment appeared to be much more vascularized and intact. The medial lindsey were removed with fresh cultures sent. There was a fair amount of serous drainage. The deep posterior compartment was easily exposed by pulling the superficial posterior compartment to the posterior aspect. This also was necrotic and I removed probably another 20 cc of tissue from the posterior compartment and in my opinion, I would say 90% of the posterior compartment tissue is gone now. We used pulsatile lavage for both medial and lateral wounds. We sent tissue for pathology from the deep posterior and anterior compartments. Cultures were sent as well from both compartments. After the irrigation, we placed a VAC dressing medial, deep compartment, and lateral anterior compartment with a bridge VAC in the middle and placed a compression dressing over the leg. [id number]/[facility] #: [id number] [facility]
[2018-09-26] MEDS: Morphine VIAL* 4 MG/ML VIAL (1 ml vial) IV PRN ×4 (00:33→23:23)
[2018-09-26] MEDS: oxyCODONE/Acetamin 5/325 MG* TAB PO PRN ×3 (01:20→20:24)
[2018-09-26 03:06] LABS: Urine Creatinine Concentration 96.33 mg/dL
[2018-09-26] MEDS: Lactated Ringers 1000 ML Bag* 1,000 ML IV SCH (03:09)
[2018-09-26 04:18] LABS: Urine Appearance Clear; Urine Bacteria Absent (Absent); Urine Bilirubin Negative (Negative); Urine Blood 3+ (Negative); Urine Color Yellow; Urine Glucose Negative (Negative); Urine Ketones Negative (Negative); Urine Nitrite Negative (Negative); Urine Protein Negative (Negative); Urine Red Blood Cell 2+(6-10/hpf) (Absent); Urine Specific Gravity 1.012 (1.010-1.030); Urine Squamous Epithelial Cell Present (Absent); Urine Urobilinogen Negative (Negative); Urine White Blood Cell 1+(6-10/hpf) (Absent)
[2018-09-26] MEDS ORDERED: NS 0.9% 1000 ML** 1,000 ML IV SCH (05:15)
[2018-09-26 05:35] LABS: Vancomycin Random 19.1 mcg/mL
[2018-09-26 05:38] LABS: EGFR Non-African American 8.2 (>60)
[2018-09-26] MEDS: Heparin VIAL(*) 5000 UNITS/ML VIAL (FIVE THOUSAND) SUBCUT SCH ×3 (05:41→22:56)
[2018-09-26] MEDS ORDERED: Vancomycin Random Level* NOTE FOLLOW UP ONE (06:00)
[2018-09-26] MEDS: Venlafaxine EXT RELEASE CAP* 75 MG PO SCH (07:18)
[2018-09-26] MEDS: Pantoprazole TAB * 40 MG TAB PO SCH (08:17)
[2018-09-26] MEDS: Thiamine TAB* 100 MG TAB PO SCH (08:17)
[2018-09-26] MEDS: Multivitamins/Minerals TAB PO SCH (08:17)
[2018-09-26] MEDS: Folic Acid TAB* 1 MG PO SCH (08:17)
[2018-09-26] MEDS: Docusate CAP* 100 MG PO SCH ×2 (08:17→20:24)
[2018-09-26] MEDS: Cetirizine* 10 MG TAB PO SCH (08:18)
[2018-09-26] MEDS: Montelukast Sodium TAB* 10 MG PO SCH (08:18)
[2018-09-26] MEDS ORDERED: Vancomycin(*) 1,000 MG in NS 0.9% 250 ML* 250 ML IVPB ONE (09:00)
--- NOTE | 2018-09-26 10:28 | PN ---
Progress Note - Progress Note Date of Service: 09/26/18 SOAP: Subjective: []Patient was seen and examined at bedside. She is feeling fatigued though without chest pain, shortness of breath, dizziness, nausea. She is feeling anxious but is not in pain at this time. Objective: []General: NAD LLE: Left lower leg dressing CDI, wrapped to the toes, Podus boot in place. Wound vac in place with good suction maintained. Exposed toes are warm with capillary refill less than two seconds. Lacks sensation of exposed toes and she is unable to wiggle the MTPs. There is no erythema proximal or distal to the dressing. Right calf is supple and nontender without erythema, edema or palpable cords. Assessment: []Compartment syndrome left leg left foot without sensation and without active motor function s/p 4 compartment fasciotomy and extensive debridement necrotic tissue left calf POD # 1 IVDU Rhabdomyolysis Plan: []Continue Multi podis boot ordered to prevent contracture Achilles, off for skin care and bathing PT- non weight bearing LLE, OOB Vanco dosed per pharmacy with Q12hr creatinine values. Cellulitis appears to have resolved. Needs to stay on antibiotics due to large open wounds making her high risk for infection. Okay for change in antibiotic per medicine or ID as deemed appropriate. Vital Signs Temp 98.6 F 09/26/18 07:35 Pulse 93 09/26/18 07:35 Resp 18 09/26/18 09:48 BP 109/62 09/26/18 07:35 Pulse Ox 96 09/26/18 08:25 Intake & Output 09/25/18 09/26/18 09/26/18 18:59 06:59 18:59 Intake Total 2175 2337 Output Total 900 200 450 Balance 1275 2137 -450 Weight 198 lb 3.2 oz Intake: IV Fluids 1695 987 LR 700 987 Sodium Bicarb in D5W 995 Oral 480 1350 Output: Wound Vac 450 Urine 900 200 Other: Estimated Void Large Date of Last Bowel 09/26/2018 Movement # Bowel Movements 1 Estimated Stool Amount Large # Voids 1 Laboratory Last Values WBC 9.8 10^3/ul (3.5-10.8) 09/25/18 06:06 RBC 2.87 10^6/ul (4.00-5.40) L 09/25/18 06:06 Hgb 8.5 g/dl (12.0-16.0) L 09/25/18 06:06 Hct 25 % (35-47) L 09/25/18 06:06 MCV 86 fL (80-97) 09/25/18 06:06 MCH 29 pg (27-31) 09/25/18 06:06 MCHC 34 g/dl (31-36) 09/25/18 06:06 RDW 14 % (10.5-15) 09/25/18 06:06 Plt Count 207 10^3/ul (150-450) 09/25/18 06:06 MPV 8.3 fL (7.4-10.4) 09/25/18 06:06 Neut % (Auto) 68.7 % 09/25/18 06:06 Lymph % (Auto) 13.4 % 09/25/18 06:06 [place] % (Auto) 14.9 % 09/25/18 06:06 Eos % (Auto) 2.3 % 09/25/18 06:06 Baso % (Auto) 0.7 % 09/25/18 06:06 Absolute Neuts (auto) 6.7 10^3/ul (1.5-7.7) 09/25/18 06:06 Absolute Lymphs (auto) 1.3 10^3/ul (1.0-4.8) 09/25/18 06:06 Absolute Monos (auto) 1.5 10^3/ul (0-0.8) H 09/25/18 06:06 Absolute Eos (auto) 0.2 10^3/ul (0-0.6) 09/25/18 06:06 Absolute Basos (auto) 0.1 10^3/ul (0-0.2) 09/25/18 06:06 Absolute Nucleated RBC 0 10^3/ul 09/25/18 06:06 Nucleated RBC % 0 09/25/18 06:06 INR (Anticoag Therapy) 1.19 (0.77-1.02) H 09/22/18 05:51 APTT 29.5 seconds (26.0-36.3) 09/22/18 05:51 Sodium 141 mmol/L (135-145) 09/25/18 06:06 Potassium 3.3 mmol/L (3.5-5.0) L 09/25/18 06:06 Chloride 98 mmol/L (101-111) L 09/25/18 06:06 Carbon Dioxide 35 mmol/L (22-32) H 09/25/18 06:06 Anion Gap 8 mmol/L (2-11) 09/25/18 06:06 BUN 46 mg/dL (6-24) H 09/25/18 06:06 Creatinine 5.59 mg/dL (0.51-0.95) H 09/26/18 04:51 Est GFR ( Amer) 10.0 (>60) 09/26/18 04:51 Est GFR (Non-Af Amer) 8.2 (>60) 09/26/18 04:51 BUN/Creatinine Ratio 7.8 (8-20) L 09/25/18 06:06 Glucose 94 mg/dL (70-100) 09/25/18 06:06 Lactic Acid 2.0 mmol/L (0.5-2.0) 09/19/18 21:56 Calcium 7.2 mg/dL (8.6-10.3) L 09/25/18 06:06 Phosphorus 5.6 mg/dL (2.5-5.0) H 09/25/18 06:06 Magnesium 2.2 mg/dL (1.9-2.7) 09/25/18 06:06 Total Bilirubin 0.30 mg/dL (0.2-1.0) 09/23/18 05:52 Direct Bilirubin 0.10 mg/dL (0.03-0.18) 09/23/18 05:52 Indirect Bilirubin 0.2 mg/dL (0.3-1.0) L 09/23/18 05:52 AST 514 U/L (13-39) H 09/23/18 05:52 ALT 25 U/L (7-52) 09/23/18 05:52 Alkaline Phosphatase 194 U/L (34-104) H 09/23/18 05:52 Total Creatine Kinase 4989 U/L (10-223) H 09/26/18 04:51 C-Reactive Protein 119.03 mg/L (<8.01) H 09/19/18 21:56 Total Protein 4.6 g/dL (6.4-8.9) L 09/23/18 05:52 Albumin 2.3 g/dL (3.2-5.2) L 09/23/18 05:52 Globulin 2.3 g/dL (2-4) 09/23/18 05:52 Albumin/Globulin Ratio 1.0 (1-3) 09/23/18 05:52 Beta HCG, Quant < 0.60 mIU/mL 09/19/18 21:56 Urine Color Yellow 09/26/18 02:43 Urine Appearance Clear 09/26/18 02:43 Urine pH 6.0 (5-9) 09/26/18 02:43 Ur Specific [place] 1.012 (1.010-1.030) 09/26/18 02:43 Urine Protein Negative (Negative) 09/26/18 02:43 Urine Ketones Negative (Negative) 09/26/18 02:43 Urine Blood 3+ (Negative) A 09/26/18 02:43 Urine Nitrate Negative (Negative) 09/26/18 02:43 Urine Bilirubin Negative (Negative) 09/26/18 02:43 Urine Urobilinogen Negative (Negative) 09/26/18 02:43 Ur Leukocyte Esterase Negative (Negative) 09/26/18 02:43 Urine WBC (Auto) 1+(6-10/hpf) (Absent) A 09/26/18 02:43 Urine RBC (Auto) 2+(6-10/hpf) (Absent) A 09/26/18 02:43 Ur Squamous Epith Cells Present (Absent) A 09/26/18 02:43 Urine Bacteria Absent (Absent) 09/26/18 02:43 Ur Creatinine Concen 96.33 mg/dL 09/26/18 02:43 U Sodium Concentration 42 mmol/L 09/26/18 02:43 Urine Glucose Negative (Negative) 09/26/18 02:43 Vancomycin Trough 15.6 mcg/mL 09/25/18 06:06 Random Vancomycin 19.1 mcg/mL 09/26/18 04:51 Hepatitis A IgM Ab Nonreactive (Nonreactive) 09/20/18 15:10 Hep Bs Antigen Nonreactive (Nonreactive) 09/20/18 15:10 Hep B Core IgM Ab Nonreactive (Nonreactive) 09/20/18 15:10 Hepatitis C Antibody High reactive (Nonreactive) A 09/20/18 15:10 Hepatitis C Ab Index > 11.0 Index 09/20/18 15:10 Blood Type B Positive 09/19/18 21:56 Antibody Screen Negative 09/19/18 21:56
[2018-09-26] MEDS: oxyCODONE TAB* 5 MG TAB PO PRN ×2 (13:50→22:56)
--- NOTE | 2018-09-26 15:17 | ECHO ---
Patient: EDD LOVING [facility] Rec#: [id number] : 1970 Date: 09/26/2018 Age: 47y Height: 157 cm / 61.8 in Weight: 90 kg / 198.4 lbs Sex: F BSA: 1.9 Room#: 338 Admit Date#: 09/20/2018 Type: Inpatient Referring: Lisa Wong Reading: Kev Poole MD Chief Security And Safety Officer: Gisel Mclaughlin RDCS,RDMS CC: Jeovany Huang MD Transthoracic Echocardiogram Indication: Edema BP: 125/74 HR: 99 Rhythm: NSR Findings History: S/P fasciotomy(left lower extremity) for acute compartment syndrome. Polysubstance abuse, smoker. Technical Comments: The study quality is fair. Left Ventricle: The left ventricular chamber size is normal. There is no left ventricular hypertrophy. Global left ventricular wall motion and contractility are within normal limits. There is normal left ventricular systolic function. The estimated ejection fraction is 55-60%. Normal left ventricular diastolic filling is observed. Left Atrium: The left atrium is slightly dilated. Right Ventricle: The right ventricular cavity size is normal. The right ventricular global systolic function is hyperdynamic. Right Atrium: The right atrium is slightly dilated. Aortic Valve: There is no evidence of aortic valve thickening. Systolic excursion of the aortic valve is normal. There is no evidence of aortic regurgitation. There is no evidence of aortic stenosis. Mitral Valve: The mitral valve leaflets are mildly thickened. Mitral valve leaflet mobility appears normal. There is mild mitral regurgitation. There is no evidence of mitral stenosis. Tricuspid Valve: The tricuspid valve leaflets are normal. There is mild tricuspid regurgitation. There is evidence of mild pulmonary hypertension. Pulmonic Valve: The pulmonic valve structure is not well visualized. There is no evidence of pulmonic regurgitation. Pericardium: There is no significant pericardial effusion. Aorta: The aortic root appears normal. There is no dilatation of the aortic arch. Pulmonary Artery: The main pulmonary artery is not well visualized. Venous: The inferior vena cava appears normal in size. There is a greater than 50% respiratory change in the inferior vena cava dimension. Summary: There was not any prior study for comparison. Conclusions Global left ventricular wall motion and contractility are within normal limits. There is normal left ventricular systolic function. The estimated ejection fraction is 55-60%. There is no evidence of aortic stenosis. There is mild mitral regurgitation. There is mild tricuspid regurgitation. There is no significant pericardial effusion. Measurements Name Value Normal Range RVIDd (AP) 2D 2.9 cm (0.9 - 2.6) RVDdMajor (2D) 4.1 cm (2.2 - 4.4) RAd ISD 4CH 5.5 cm (3.4 - 4.9) RA (A4C)W 4.3 cm (2.9 - 4.6) IVSd (2D) 0.8 cm (0.6 - 1) LVPWd (2D) 1 cm (0.6 - 1) LVIDd (2D) 4.4 cm (3.6 - 5.4) LVIDs (2D) 2.8 cm - LV FS (2D) 37 % (25 - 45) Aortic Annulus 2 cm (1.4 - 2.6) Ao root diameter (2D) 2.6 cm (2.1 - 3.5) Ascending Ao 2.7 cm (2.1 - 3.4) Aortic arch 2 cm (1.8 - 3.4) LA dimension (AP) 2D 4.3 cm (2.3 - 3.8) LAd ISD 4CH 5.7 cm (2.9 - 5.3) LA ISD 4CH W 3.9 cm (2.5 - 4.5) Name Value Normal Range LA ESV BP (A/L) index 29 ml/m2 - Name Value Normal Range MV E-wave Vmax 1.2 m/sec - MV deceleration time 92 msec - MV A-wave Vmax 0.6 m/sec - MV E:A ratio 1.9 ratio - LV septal e' Vmax 0.12 m/sec - LV lateral e' Vmax 0.14 m/sec - LV E:e' septal ratio 10 ratio - LV E:e' lateral ratio 9 ratio - Name Value Normal Range AV Vmax 2 m/sec - AV VTI 33 cm - AV peak gradient 16 mmHg - AV mean gradient 7 mmHg - LVOT diameter 2 cm - LVOT Vmax 1.3 m/sec - LVOT VTI 27 cm - LVOT peak gradient 7 mmHg - LVOT mean gradient 4 mmHg - IVORY (continuity Vmax) 2 cm2 - IVORY (continuity VTI) 2.6 cm2 - KILO Vmax 1.2 m/sec - Name Value Normal Range MV Vmax 1.4 m/sec - MV VTI 31 cm - MV peak gradient 8 mmHg - MV mean gradient 4 mmHg - MV PHT 74 msec - MVA (PHT) 3 cm2 - MVA (continuity VTI) 2.4 cm2 - Name Value Normal Range TR Vmax 3 m/sec - TR peak gradient 36 mmHg - RAP 3 mmHg - RVSP 39 mmHg - IVC diameter 2.1 cm - Name Value Normal Range PV Vmax 1.1 m/sec - PV peak gradient 5 mmHg -
--- NOTE | 2018-09-26 16:32 | PN ---
Subjective Date of Service: 09/26/18 Interval History: Patient seen and examined. states she is feeling much better today. Less pain, less anxiety. No fevers or chills, has visitor in the room. She is complaining of increased edema to the thighs and abdomen, significantly increased from yesterday per patient's report. No SOB, no chest pain. States she feels her urine output is adequate and flowing better than at admission. Objective Active Medications: Acetaminophen (Tylenol Tab*) 650 mg PO Q6H PRN PRN Reason: PAIN OR TEMPERATURE Cetirizine HCl (Zyrtec*) 10 mg PO DAILY [facility] Last Admin: 09/26/18 08:18 Dose: 10 mg Diphenhydramine HCl (Benadryl Iv*) 25 mg IV Q6H PRN PRN Reason: itching Diphenhydramine HCl (Benadryl Po*) 25 mg PO Q4H PRN PRN Reason: ITCHING Last Admin: 09/20/18 19:55 Dose: 25 mg Docusate Sodium (Colace Cap*) 100 mg PO BID [facility] Last Admin: 09/26/18 08:17 Dose: 100 mg Folic Acid (Folvite Tab*) 1 mg PO DAILY [facility] Last Admin: 09/26/18 08:17 Dose: 1 mg Heparin Sodium (Porcine) (Heparin Vial(*)) 5,000 units SUBCUT Q8HR [facility] Last Admin: 09/26/18 13:47 Dose: 5,000 units Lidocaine (Xylocaine 2% Viscous*) 15 ml SWISH SPIT TID PRN PRN Reason: PAIN Last Admin: 09/24/18 08:29 Dose: 15 ml Lorazepam (Ativan Tab(*)) 1 mg PO Q6H PRN PRN Reason: ANXIETY Last Admin: 09/25/18 17:17 Dose: 1 mg Montelukast Sodium (Singulair Tab*) 10 mg PO DAILY [facility] Last Admin: 09/26/18 08:18 Dose: 10 mg Morphine Sulfate (Morphine Vial*) 2 mg IV Q2H PRN PRN Reason: PAIN Last Admin: 09/26/18 09:48 Dose: 2 mg Multivitamins/Minerals (Theragran/Minerals Tab*) 1 tab PO DAILY [facility] Last Admin: 09/26/18 08:17 Dose: 1 tab Ondansetron HCl (Zofran Inj*) 4 mg IV Q6H PRN PRN Reason: nausea Oxycodone HCl (Roxycodone Tab*) 10 mg PO Q4H PRN PRN Reason: PAIN - SEVERE Last Admin: 09/26/18 13:50 Dose: 10 mg Oxycodone/Acetaminophen (Percocet 5/325 Tab*) 1 tab PO Q4H PRN PRN Reason: PAIN Oxycodone/Acetaminophen (Percocet 5/325 Tab*) 2 tab PO Q4H PRN PRN Reason: PAIN Last Admin: 09/26/18 08:18 Dose: 2 tab Pantoprazole Sodium (Protonix Tab *) 40 mg PO DAILY [facility] Last Admin: 09/26/18 08:17 Dose: 40 mg Pharmacy Consult (Vancomycin Per Pharmacy*) 1 note FOLLOW UP .VANC PER PHARMACY [facility] Pharmacy Consult (Vancomycin Random Level*) 1 note FOLLOW UP ONCE ONE Stop: 09/27/18 06:01 Thiamine HCl (Vitamin B-1 Tab*) 100 mg PO DAILY [facility] Last Admin: 09/26/18 08:17 Dose: 100 mg Venlafaxine HCl (Effexor Xr Cap*) 150 mg PO DAILY [facility] Last Admin: 09/26/18 07:18 Dose: 150 mg Vital Signs - 8 hr 09/26/18 09/26/18 09/26/18 09:48 10:18 11:30 Temperature 98.4 F Pulse Rate 105 Respiratory 18 16 17 Rate Blood Pressure 125/74 (mmHg) O2 Sat by Pulse 97 Oximetry 09/26/18 09/26/18 13:50 15:21 Temperature 98.3 F Pulse Rate 93 Respiratory 16 16 Rate Blood Pressure 133/79 (mmHg) O2 Sat by Pulse 97 Oximetry Oxygen Devices in Use Now: None Appearance: alert, anxious, appropriate Eyes: No Scleral Icterus, PERRLA Ears/Nose/Mouth/Throat: NL Teeth, Lips, Gums, Mucous Membranes Moist Neck: NL Appearance and Movements; NL JVP, Trachea Midline Respiratory: Symmetrical Chest Expansion and Respiratory Effort, Clear to Auscultation Cardiovascular: NL Sounds; No Murmurs; No JVD, RRR, - - bilater thigh edema Abdominal: NL Sounds; No Tenderness; No Distention, - - increased abdominal girth Extremities: No Clubbing, Cyanosis, - - bilateral thigh edema Skin: - - dressing CDI on surgical side Neurological: Alert and Oriented x 3, - - no sensation left foot Nutrition: Taking PO's Result Diagrams: 09/25/18 06:06 09/26/18 04:51 Microbiology and Other Data: Microbiology 09/20/18 02:35 Nasal Screen MRSA (PCR) - Final Nasal Mrsa Not Detected Diagnostic Imaging: CARDIAC ECHO: Conclusions Global left ventricular wall motion and contractility are within normal limits. There is normal left ventricular systolic function. The estimated ejection fraction is 55-60%. There is no evidence of aortic stenosis. There is mild mitral regurgitation. There is mild tricuspid regurgitation. There is no significant pericardial effusion. RENAL US: Patient Name: EDD LOVING Medical Record#: [id number] Ordering Physician: Radha Ruvalcaba MD Acct.#: [id number] : 1970 Age: 47 Sex: F Location: SURGICAL STAY UNIT Exam Date: 09/20/181746 ADM Status: ADM IN Order Information: US RENAL COMPLETE Accession Number: [id number] CPT: 39693 EXAM: US Retroperitoneal Limited, Kidneys EXAM DATE/TIME: 09/20/2018 6:15 PM CLINICAL HISTORY: 47 years old, female; Signs and symptoms; Other: Oligouria; Additional info: Re: Arf TECHNIQUE: Real-time ultrasound of the retroperitoneum with image documentation. Examination was focused on the kidneys. COMPARISON: No relevant prior studies available. FINDINGS: Right kidney: Right kidney measures 12.9 x 6.2 x 6.4 cm. No hydronephrosis, stone or mass. Left kidney: Left kidney measures 11.3 x 6.4 x 6.3 cm. Bladder: The bladder is not evaluated. IMPRESSION: No hydronephrosis, stone or mass. Assess/Plan/Problems-Billing Assessment: This is a 47 yo f with h/o polysubstance abuse, anxiety/depression, now on Suboxone and Clonazepam presented with left leg compartment syndrome after syncope and collapse 2/2 potential overdose. - Patient Problems (1) Compartment syndrome Code(s): T79.A0XA - COMPARTMENT SYNDROME, UNSPECIFIED, INITIAL ENCOUNTER SNOMED Code(s): 984060843 Comment: - Unclear cause, may have been trauma during syncope/overdose, patient has no recollection of events - s/p fasciotomy and debridement 09/20/18, 09/21/18 and 09/25/18 - Will need continued surgical debridements as per ortho - Defer to orthopedics for continued management, concern for preservation of limb and avoiding amputation - Pain control (2) Acute tubular necrosis Code(s): N17.0 - ACUTE KIDNEY FAILURE WITH TUBULAR NECROSIS SNOMED Code(s): 32059863 Comment: - Ischemic ATN vs GN in the presence of severe rhabo - Urine studies: Na=42, Creat=96.33, Protein=negative (down from 2+), 3+blood, 2+RBCs - Creat at 5.59 today, may have reached saurabh, maintenance vs. recovery phase, follow serum creatinine daily - Given increasing anasarca, will hold IVF until evaluated by Dr. Bradford from Nephrology, will defer for fluid managment, does not appear to have an urgent need for dialysis - Cardiac ECHO obtained, preserved EF and LV function noted (3) Rhabdomyolysis Code(s): M62.82 - RHABDOMYOLYSIS SNOMED Code(s): 927097777 Comment: - CPK almost 70K at admission - down to <5K today (4) Cellulitis Code(s): L03.90 - CELLULITIS, UNSPECIFIED SNOMED Code(s): 305177112 Comment: - LLE, knee area - Renally dosed Vanco as per ortho with random troughs - Given hx of IVDU, will consult Dr. Shelby to further manage atbx - New cultures from OR today, follow results (5) Anxiety and depression Code(s): F41.9 - ANXIETY DISORDER, UNSPECIFIED; F32.9 - MAJOR DEPRESSIVE DISORDER, SINGLE EPISODE, UNSPECIFIED SNOMED Code(s): 79053714 Comment: - On Effexor and ativan - supportive care provided (6) Tobacco use disorder Code(s): F17.200 - NICOTINE DEPENDENCE, UNSPECIFIED, UNCOMPLICATED SNOMED Code (s): 467574229 Comment: - Cessation encouraged (7) Polysubstance (including opioids) dependence w/o physiol dependence Code(s): F19.20 - OTHER PSYCHOACTIVE SUBSTANCE DEPENDENCE, UNCOMPLICATED SNOMED Code(s): 40094790 Comment: - Has been on suboxone at [facility] - suboxone on hold while inpatient and acutely ill - Evaluated analgesics ordered, extensive discussion about pain mgmt in the presence of substance abuse disorder (8) DVT prophylaxis Code(s): CSB8408 - SNOMED Code(s): 173591956 Comment: - Restart HSQ post-op Status and Disposition: Inpatient, dispo TBD, status: guarded
--- NOTE | 2018-09-26 18:43 | CONS ---
CONSULTATION REPORT: DATE OF CONSULT: 09/26/18 REQUESTING PROVIDER: Lisa Burns NP CONSULTING SERVICE: Infectious Disease. REASON FOR CONSULT: 1. Open wound, multiple debridement procedures after compartment syndrome and concern for secondary infection. 2. Acute kidney injury due to rhabdomyolysis. GFR is stable. RECOMMENDATIONS: Continue vancomycin, goal trough 10 to 15, which is a fine prophylactic for this sort of wound and she has excellent blood levels. This is not contributing to any kidney injury. HISTORY OF PRESENT ILLNESS: A 47-year-old woman with compartment syndrome of the left leg after being found down, has had multiple debridements on 09/20/18, 09/21/18, 09/25/18 and another one planned for next week. She has a VAC dressing now. She is hemodynamically stable, afebrile. She has been on vancomycin a few days for prophylaxis, but cultures have all been negative and cultures from the wound negative as well. She had acute kidney injury. Her creatinines hovering around 5. She is urinating. PAST MEDICAL HISTORY: 1. Hepatitis C, treated in the past, it could be reinfected. 2. Injection drug use, in brief remission. 3. Anxiety. 4. Depression. 5. Posttraumatic stress disorder. 6. Gastroesophageal reflux disease. 7. Asthma. MEDICATIONS: 1. Tylenol. 2. Cetirizine. 3. Benadryl. 4. Folic acid. 5. Heparin subcutaneous injection. 6. Ativan as needed. 7. Singulair. 8. Morphine. 9. Oxycodone. 10. Pantoprazole. 11. Vancomycin. 12. Effexor. ALLERGIES: OMEPRAZOLE, TRAMADOL, NICOTINE. SOCIAL HISTORY: She is on disability and has been recently incarcerated through mid August. She does smoke cigarettes. FAMILY HISTORY: Mother, cancer. Father, prostate cancer. REVIEW OF SYSTEMS: All negative for 14-point review except as noted above in the history of present illness. PHYSICAL EXAM: Vital Signs: Temperature 37, heart rate 100, respiratory rate 17, blood pressure 125/74, oxygen saturation 97% on room air. In general, she is awake, not in distress. Neurologic: She is oriented x3. Follows all commands. Decreased sensation to light touch in the left foot. Heart has regular rate and rhythm without murmurs, rubs, or gallops. Lungs are clear to auscultation bilaterally. Abdomen: Soft, nontender, nondistended. There are bowel sounds present. Skin: There are no rashes or splinter hemorrhages. Musculoskeletal: Left leg is wrapped. There is a VAC dressing. LABORATORY DATA: Creatinine is 5.9, BUN 46, CK 4900. White cell count 9.8, hemoglobin 8, platelets 207. Please see impression and recommendations as outlined above. Thank you for asking me to see Ms. Trujillo in consultation. [id number]/[facility] #: [id number] [facility] HOSPITALChristelle
--- NOTE | 2018-09-26 18:51 | CONS ---
NEPHROLOGY CONSULTATION: DATE OF CONSULT: 09/26/18 REQUESTING PROVIDER: Lisa Burns NP REASON FOR CONSULT: Acute kidney injury, rhabdomyolysis. CHIEF COMPLAINT: Left leg pain and inability to walk. HISTORY OF PRESENT ILLNESS: A 47-year-old female with past medical history of anxiety, depression, PTSD, polysubstance abuse was discharged from long term on 08/23, has returned to substance abuse and was brought in to the hospital after a drug overdose, which she describes as accidental. Reports that she was doing well on Suboxone and had a slip that night. She had used heroin and fentanyl a couple of days prior to admission and then Suboxone and cocaine use on the day of admission. When she came to the hospital, her CPK was noted to be 68,000, creatinine at admission on 09/19/18 was noted to be 2.41, also, had a white count of 17.6. The patient's baseline creatinine appears to be normal and the patient had this measured on 01/02/18 when her creatinine was noted to be 0.8. Her kidney function has deteriorated through her hospital stay and peaked at creatinine of 6.15 and currently in the 5.5 range. The patient was also noted to have lower leg compartment syndrome. The patient denies any known trauma, but reports that she may have fallen, does not have recollection of the incident and reports that she may have been on the ground for a long time and she hit the pavement. The patient has had multiple debridements for the compartment syndrome and closely followed by the surgical service, reports that she has another one planned on Tuesday. The patient has been hydrated with IV fluids and had IV bicarbonate infusion as well. Initially, was not making adequate urine; however, urine output has improved and was 1900 per day and 1100 per day recently. PAST MEDICAL HISTORY: 1. Anxiety. 2. Depression. 3. PTSD. 4. GERD. 5. Chronic hepatitis C. 6. Status post [facility] treatment. 7. Polysubstance abuse with cocaine, Suboxone, heroin. 8. Asthma. MEDICATIONS: Medication list prior to admission: 1. Protonix 40 mg. 2. Effexor 150 mg. 3. Claritin 10 mg. 4. Suboxone 8-2 daily. 5. Singulair. 6. Also reports taking ibuprofen every day for the last 20 years. ALLERGIES: Include OMEPRAZOLE, TRAMADOL and NICOTINE. FAMILY HISTORY: Mother with cancer. Father with prostate cancer. 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 REVIEW OF SYSTEMS: Clinically reports significant pain in the leg. Denies any shortness of breath or chest pain. Denies any nausea, vomiting, or tremors. Other 14-point review of systems noted to be negative. PHYSICAL EXAM: General Appearance: Alert, oriented, no acute distress. Vitals : Reviewed. HEENT: NC/AT. Heart: S1, S2 present. Regular at the time of exam. Lungs: Clear to auscultation bilaterally. Abdomen: Soft, nontender. Extremities: Right foot warm. Left leg in dressing. Palpable pulses present. Neuro: Alert and oriented x3. Gait not tested. DIAGNOSTIC STUDIES/LAB DATA: Labs have been reviewed. Today, the sodium noted to be 141, potassium noted to be 3.3, chloride noted to be 98, CO2 noted to be 35, BUN noted to be 46, creatinine noted to be 5.9. CPK noted to be 10,178. ASSESSMENT AND PLAN: A 47-year-old female with past medical history of polysubstance abuse, depression, post-traumatic stress disorder comes in to the hospital with acute renal failure and rhabdomyolysis. 1. Acute renal failure secondary to myoglobin-induced injury and rhabdomyolysis. At this time, her muscle enzymes are improving. The patient has received IV fluids in the form of lactated Ringer and sodium bicarbonate. Her IV fluids were held this morning due to significant edema. At this time, the patient's urine output has improved as well. It may take a while for the patient's creatinine to slowly improve and the patient will be closely followed by the renal service. The patient currently does not have any acute indications for dialysis; however, if her kidney function worsens or she develops any indications including electrolyte imbalance or volume overload, we will consider dialysis then. This was discussed in detail with the patient. Currently, however, the patient does not require any renal replacement therapy. The patient is expected to have a gradual slow improvement in her kidney function. The patient's CPK is noted to be trending down. Encourage further hydration. The patient is encouraged to increase her oral hydration and based on her creatinine numbers tomorrow, can possibly restart IV fluids in the form of normal saline, low amount till her kidney function improves. 2. Compartment syndrome. Plan per the primary and surgical service. 3. The patient is being covered with antibiotics for endocarditis at this time as well and is having a septic workup. Further per the primary team and Infectious Disease. 4. The patient also advised to stop taking NSAIDs, which she has taken for 20 years as an outpatient. Thank you for giving me an opportunity to participate in the care of this patient. [id number]/CPS #: [id number] JAYLENE
[2018-09-27] MEDS: oxyCODONE/Acetamin 5/325 MG* TAB PO PRN ×4 (01:27→20:12)
[2018-09-27] MEDS: LORazepam TAB(*) 1 MG PO PRN ×3 (03:00→20:13)
[2018-09-27] MEDS: Heparin VIAL(*) 5000 UNITS/ML VIAL (FIVE THOUSAND) SUBCUT SCH ×2 (05:50→14:41)
[2018-09-27] MEDS ORDERED: Vancomycin Random Level* NOTE FOLLOW UP ONE (06:00)
[2018-09-27 06:09] LABS: EGFR African American 10.5 (>60); EGFR Non-African American 8.7 (>60)
[2018-09-27 06:42] LABS: Vancomycin Random 23.2 mcg/mL
[2018-09-27] MEDS: Venlafaxine EXT RELEASE CAP* 75 MG PO SCH (09:01)
[2018-09-27] MEDS: Cetirizine* 10 MG TAB PO SCH (09:01)
[2018-09-27] MEDS: Folic Acid TAB* 1 MG PO SCH (09:01)
[2018-09-27] MEDS: Thiamine TAB* 100 MG TAB PO SCH (09:01)
[2018-09-27] MEDS: Montelukast Sodium TAB* 10 MG PO SCH (09:01)
[2018-09-27] MEDS: Multivitamins/Minerals TAB PO SCH (09:01)
[2018-09-27] MEDS: Pantoprazole TAB * 40 MG TAB PO SCH (09:01)
[2018-09-27] MEDS: Docusate CAP* 100 MG PO SCH ×2 (09:04→20:13)
[2018-09-27] MEDS ORDERED: Buffered Lidocaine 1% SYRIN* 1 ML/SYRINGE INTRADERM ONE (11:56)
--- NOTE | 2018-09-27 13:30 | PN ---
Progress Note - Progress Note Date of Service: 09/27/18 SOAP: Subjective: []Patient was seen and examined at bedside. She is feeling better today, less exhausted. Her LLE is not painful, she remains unable to actively move the ankle or toes, she also lacks sensation distally. Denies CP, SOB, dizziness, nausea. Objective: []General: NAD, very drowsy falling asleep talking to me LLE: Left lower leg dressing CDI, wrapped to the toes, Podus boot in place. Wound vac in place with good suction maintained. Exposed toes are warm with capillary refill less than two seconds. Lacks sensation of exposed toes and she is unable to wiggle the MTPs. There is no erythema proximal or distal to the dressing. Right calf is supple and nontender without erythema, edema or palpable cords. Assessment: []Compartment syndrome left leg left foot without sensation and without active motor function s/p 4 compartment fasciotomy and extensive debridement necrotic tissue left calf POD # 2 IVDU Rhabdomyolysis Plan: []Continue Multi podis boot ordered to prevent contracture Achilles, off for skin care and bathing PT- non weight bearing LLE, OOB Vanco dosed per pharmacy with Q12hr creatinine values. Needs to stay on antibiotics due to large open wounds making her high risk for infection. Dr Lynsey BLAKE saw her yesterday confirming vanco as the appropriate prohylactic abx. Nephrology saw her yesterday as well and will continue to follow her, no need for dialysis at this time. Discussed sedation with nursing, frequent monitoring and decrease narcotic use as able Vital Signs Temp 98.1 F 09/27/18 11:42 Pulse 94 09/27/18 11:42 Resp 14 09/27/18 11:48 BP 107/71 09/27/18 11:42 Pulse Ox 93 09/27/18 11:42 Intake & Output 09/26/18 09/27/18 09/27/18 18:59 06:59 18:59 Intake Total 1069 720 330 Output Total 900 900 350 Balance 169 -180 -20 Weight 164 lb 3.2 oz Intake: IV Fluids 584 NS 584 IVPB 275 ABX - VANCOMYCIN 275 Oral 210 720 330 Output: Wound Vac 450 Urine 450 900 350 Laboratory Last Values WBC 9.8 10^3/ul (3.5-10.8) 09/25/18 06:06 RBC 2.87 10^6/ul (4.00-5.40) L 09/25/18 06:06 Hgb 8.5 g/dl (12.0-16.0) L 09/25/18 06:06 Hct 25 % (35-47) L 09/25/18 06:06 MCV 86 fL (80-97) 09/25/18 06:06 MCH 29 pg (27-31) 09/25/18 06:06 MCHC 34 g/dl (31-36) 09/25/18 06:06 RDW 14 % (10.5-15) 09/25/18 06:06 Plt Count 207 10^3/ul (150-450) 09/25/18 06:06 MPV 8.3 fL (7.4-10.4) 09/25/18 06:06 Neut % (Auto) 68.7 % 09/25/18 06:06 Lymph % (Auto) 13.4 % 09/25/18 06:06 Nicholas % (Auto) 14.9 % 09/25/18 06:06 Eos % (Auto) 2.3 % 09/25/18 06:06 Baso % (Auto) 0.7 % 09/25/18 06:06 Absolute Neuts (auto) 6.7 10^3/ul (1.5-7.7) 09/25/18 06:06 Absolute Lymphs (auto) 1.3 10^3/ul (1.0-4.8) 09/25/18 06:06 Absolute Monos (auto) 1.5 10^3/ul (0-0.8) H 09/25/18 06:06 Absolute Eos (auto) 0.2 10^3/ul (0-0.6) 09/25/18 06:06 Absolute Basos (auto) 0.1 10^3/ul (0-0.2) 09/25/18 06:06 Absolute Nucleated RBC 0 10^3/ul 09/25/18 06:06 Nucleated RBC % 0 09/25/18 06:06 INR (Anticoag Therapy) 1.19 (0.77-1.02) H 09/22/18 05:51 APTT 29.5 seconds (26.0-36.3) 09/22/18 05:51 Sodium 141 mmol/L (135-145) 09/25/18 06:06 Potassium 3.3 mmol/L (3.5-5.0) L 09/25/18 06:06 Chloride 98 mmol/L (101-111) L 09/25/18 06:06 Carbon Dioxide 35 mmol/L (22-32) H 09/25/18 06:06 Anion Gap 8 mmol/L (2-11) 09/25/18 06:06 BUN 48 mg/dL (6-24) H 09/27/18 05:35 Creatinine 5.34 mg/dL (0.51-0.95) H 09/27/18 05:35 Est GFR ( Amer) 10.5 (>60) 09/27/18 05:35 Est GFR (Non-Af Amer) 8.7 (>60) 09/27/18 05:35 BUN/Creatinine Ratio 7.8 (8-20) L 09/25/18 06:06 Glucose 94 mg/dL (70-100) 09/25/18 06:06 Lactic Acid 2.0 mmol/L (0.5-2.0) 09/19/18 21:56 Calcium 7.2 mg/dL (8.6-10.3) L 09/25/18 06:06 Phosphorus 5.6 mg/dL (2.5-5.0) H 09/25/18 06:06 Magnesium 2.2 mg/dL (1.9-2.7) 09/25/18 06:06 Total Bilirubin 0.30 mg/dL (0.2-1.0) 09/23/18 05:52 Direct Bilirubin 0.10 mg/dL (0.03-0.18) 09/23/18 05:52 Indirect Bilirubin 0.2 mg/dL (0.3-1.0) L 09/23/18 05:52 AST 514 U/L (13-39) H 09/23/18 05:52 ALT 25 U/L (7-52) 09/23/18 05:52 Alkaline Phosphatase 194 U/L (34-104) H 09/23/18 05:52 Total Creatine Kinase 4989 U/L (10-223) H 09/26/18 04:51 C-Reactive Protein 119.03 mg/L (<8.01) H 09/19/18 21:56 Total Protein 4.6 g/dL (6.4-8.9) L 09/23/18 05:52 Albumin 2.3 g/dL (3.2-5.2) L 09/23/18 05:52 Globulin 2.3 g/dL (2-4) 09/23/18 05:52 Albumin/Globulin Ratio 1.0 (1-3) 09/23/18 05:52 Beta HCG, Quant < 0.60 mIU/mL 09/19/18 21:56 Urine Color Yellow 09/26/18 02:43 Urine Appearance Clear 09/26/18 02:43 Urine pH 6.0 (5-9) 09/26/18 02:43 Ur Specific [place] 1.012 (1.010-1.030) 09/26/18 02:43 Urine Protein Negative (Negative) 09/26/18 02:43 Urine Ketones Negative (Negative) 09/26/18 02:43 Urine Blood 3+ (Negative) A 09/26/18 02:43 Urine Nitrate Negative (Negative) 09/26/18 02:43 Urine Bilirubin Negative (Negative) 09/26/18 02:43 Urine Urobilinogen Negative (Negative) 09/26/18 02:43 Ur Leukocyte Esterase Negative (Negative) 09/26/18 02:43 Urine WBC (Auto) 1+(6-10/hpf) (Absent) A 09/26/18 02:43 Urine RBC (Auto) 2+(6-10/hpf) (Absent) A 09/26/18 02:43 Ur Squamous Epith Cells Present (Absent) A 09/26/18 02:43 Urine Bacteria Absent (Absent) 09/26/18 02:43 Ur Creatinine Concen 96.33 mg/dL 09/26/18 02:43 U Sodium Concentration 42 mmol/L 09/26/18 02:43 Urine Glucose Negative (Negative) 09/26/18 02:43 Vancomycin Trough 15.6 mcg/mL 09/25/18 06:06 Random Vancomycin 23.2 mcg/mL 09/27/18 05:35 Hepatitis A IgM Ab Nonreactive (Nonreactive) 09/20/18 15:10 Hep Bs Antigen Nonreactive (Nonreactive) 09/20/18 15:10 Hep B Core IgM Ab Nonreactive (Nonreactive) 09/20/18 15:10 Hepatitis C Antibody High reactive (Nonreactive) A 09/20/18 15:10 Hepatitis C Ab Index > 11.0 Index 09/20/18 15:10 Blood Type B Positive 09/19/18 21:56 Antibody Screen Negative 09/19/18 21:56
[2018-09-27 15:06] LABS: ABS Basophils 0.1 10^3/ul (0-0.2); ABS Eosinophils 0.4 10^3/ul (0-0.6); ABS Lymphocytes 2.4 10^3/ul (1.0-4.8); ABS Monocytes 1.3 10^3/ul (0-0.8); ABS Neutrophils 5.6 10^3/ul (1.5-7.7); ABS Nucleated RBC 0 10^3/ul; Eosinophil % 4.1 %; Hematocrit 19 % (35-47); Hemoglobin 6.3 g/dl (12.0-16.0); Lymphocyte % 24.4 %; Mean Corpuscular HGB Conc 34 g/dl (31-36); Mean Corpuscular Hemoglobin 30 pg (27-31); Mean Corpuscular Volume 88 fL (80-97); Mean Platelet Volume 8.6 fL (7.4-10.4); Nucleated Red Blood Cells % 0.1; Platelet Count 260 10^3/ul (150-450); Red Blood Count 2.13 10^6/ul (4.00-5.40); Red Cell Distribution Width 15 % (10.5-15); White Blood Count 9.7 10^3/ul (3.5-10.8)
[2018-09-27 15:30] LABS: BUN/Creatinine Ratio 9.4 (8-20); Calcium 7.8 mg/dL (8.6-10.3); EGFR African American 10.5 (>60); EGFR Non-African American 8.7 (>60); Potassium 3.3 mmol/L (3.5-5.0)
[2018-09-27] MEDS ORDERED: Furosemide IV* 10 MG/ML 2 ML VIAL (20 MG) IV ONE (15:36)
[2018-09-27] MEDS ORDERED: Potassium Chlor TAB* 20 MEQ TAB.ER PO ONE (17:11)
--- NOTE | 2018-09-27 17:18 | PN ---
Subjective Date of Service: 09/27/18 Interval History: Resting in bed on assessment. Reports pain is well controlled. Denies cp, palpitations, sob, nausea, vomiting, diarrhea. Objective Active Medications: Acetaminophen (Tylenol Tab*) 650 mg PO Q6H PRN PRN Reason: PAIN OR TEMPERATURE Cetirizine HCl (Zyrtec*) 10 mg PO DAILY [facility] Last Admin: 09/27/18 09:01 Dose: 10 mg Diphenhydramine HCl (Benadryl Iv*) 25 mg IV Q6H PRN PRN Reason: itching Diphenhydramine HCl (Benadryl Po*) 25 mg PO Q4H PRN PRN Reason: ITCHING Last Admin: 09/20/18 19:55 Dose: 25 mg Docusate Sodium (Colace Cap*) 100 mg PO BID [facility] Last Admin: 09/27/18 09:04 Dose: Not Given Folic Acid (Folvite Tab*) 1 mg PO DAILY [facility] Last Admin: 09/27/18 09:01 Dose: 1 mg Lactated Ringer's (Lactated Ringers 1000 Ml Bag*) 1,000 mls @ 125 mls/hr IV PER RATE [facility] Sodium Chloride (Ns 0.9% 1000 Ml*) 1,000 mls @ 75 mls/hr IV PER RATE [facility] Lidocaine (Xylocaine 2% Viscous*) 15 ml SWISH SPIT TID PRN PRN Reason: PAIN Last Admin: 09/24/18 08:29 Dose: 15 ml Lorazepam (Ativan Tab(*)) 1 mg PO Q6H PRN PRN Reason: ANXIETY Last Admin: 09/27/18 09:02 Dose: 1 mg Montelukast Sodium (Singulair Tab*) 10 mg PO DAILY [facility] Last Admin: 09/27/18 09:01 Dose: 10 mg Morphine Sulfate (Morphine Vial*) 2 mg IV Q2H PRN PRN Reason: PAIN Last Admin: 09/26/18 23:23 Dose: 2 mg Multivitamins/Minerals (Theragran/Minerals Tab*) 1 tab PO DAILY [facility] Last Admin: 09/27/18 09:01 Dose: 1 tab Ondansetron HCl (Zofran Inj*) 4 mg IV Q6H PRN PRN Reason: nausea Oxycodone HCl (Roxycodone Tab*) 10 mg PO Q4H PRN PRN Reason: PAIN - SEVERE Last Admin: 09/26/18 22:56 Dose: 10 mg Oxycodone/Acetaminophen (Percocet 5/325 Tab*) 1 tab PO Q4H PRN PRN Reason: PAIN Oxycodone/Acetaminophen (Percocet 5/325 Tab*) 2 tab PO Q4H PRN PRN Reason: PAIN Last Admin: 09/27/18 14:42 Dose: 2 tab Pantoprazole Sodium (Protonix Tab *) 40 mg PO DAILY [facility] Last Admin: 09/27/18 09:01 Dose: 40 mg Pharmacy Consult (Vancomycin Per Pharmacy*) 1 note FOLLOW UP .VANC PER PHARMACY [facility] Pharmacy Consult (Vancomycin Random Level*) 1 note FOLLOW UP 0600 ONE Stop: 09/28/18 06:01 Potassium Chloride (Klor Con Er Tab*) 40 meq PO ONCE ONE Stop: 09/27/18 17:12 Thiamine HCl (Vitamin B-1 Tab*) 100 mg PO DAILY [facility] Last Admin: 09/27/18 09:01 Dose: 100 mg Venlafaxine HCl (Effexor Xr Cap*) 150 mg PO DAILY [facility] Last Admin: 09/27/18 09:01 Dose: 150 mg Vital Signs - 8 hr 09/27/18 09/27/18 09/27/18 09:37 11:42 11:47 Temperature 98.1 F Pulse Rate 94 Respiratory 16 14 14 Rate Blood Pressure 107/71 (mmHg) O2 Sat by Pulse 93 Oximetry 09/27/18 09/27/18 11:48 14:42 Temperature Pulse Rate Respiratory 14 15 Rate Blood Pressure (mmHg) O2 Sat by Pulse Oximetry Oxygen Devices in Use Now: None Appearance: Comfortable, NAD Eyes: No Scleral Icterus Ears/Nose/Mouth/Throat: Clear Oropharnyx, Mucous Membranes Moist Neck: NL Appearance and Movements; NL JVP Respiratory: Symmetrical Chest Expansion and Respiratory Effort, Clear to Auscultation Cardiovascular: NL Sounds; No Murmurs; No JVD, RRR, - - Trace to +1 edema to RLE. LLE unable to assess due to dressing Abdominal: NL Sounds; No Tenderness; No Distention Lymphatic: No Cervical Adenopathy Extremities: No Clubbing, Cyanosis Skin: No Rash or Ulcers, - - Dressing to left LE CDI Neurological: Alert and Oriented x 3, - - Numbess to left toes. Reports improvement in sensation to left thigh and knee. Sensation to RLE intact Nutrition: Taking PO's Result Diagrams: 09/27/18 14:40 09/27/18 14:40 Microbiology and Other Data: Microbiology 09/20/18 02:35 Nasal Screen MRSA (PCR) - Final Nasal Mrsa Not Detected Diagnostic Imaging: CARDIAC ECHO: Conclusions Global left ventricular wall motion and contractility are within normal limits. There is normal left ventricular systolic function. The estimated ejection fraction is 55-60%. There is no evidence of aortic stenosis. There is mild mitral regurgitation. There is mild tricuspid regurgitation. There is no significant pericardial effusion. RENAL US: Patient Name: DED LOVING Medical Record#: [id number] Ordering Physician: Radha Ruvalcaba MD Acct.#: [id number] : 1970 Age: 47 Sex: F Location: SURGICAL STAY UNIT Exam Date: 09/20/181746 ADM Status: ADM IN Order Information: US RENAL COMPLETE Accession Number: [id number] CPT: 56278 EXAM: US Retroperitoneal Limited, Kidneys EXAM DATE/TIME: 09/20/2018 6:15 PM CLINICAL HISTORY: 47 years old, female; Signs and symptoms; Other: Olig[place]ria; Additional info: Re: Arf TECHNIQUE: Real-time ultrasound of the retroperitoneum with image documentation. Examination was focused on the kidneys. COMPARISON: No relevant prior studies available. FINDINGS: Right kidney: Right kidney measures 12.9 x 6.2 x 6.4 cm. No hydronephrosis, stone or mass. Left kidney: Left kidney measures 11.3 x 6.4 x 6.3 cm. Bladder: The bladder is not evaluated. IMPRESSION: No hydronephrosis, stone or mass. Assess/Plan/Problems-Billing Assessment: This is a 47 yo f with h/o polysubstance abuse, anxiety/depression, now on Suboxone and Clonazepam presented with left leg compartment syndrome after syncope and collapse 2/2 potential overdose. - Patient Problems (1) Anemia Comment: - H&H down form 8.5/25 on 09/25/18 to 6.3/ today - Suspected due to blood loss. - Patient will be transfused 2 units PRBC tonight. I have discussed this with Dr Bradford who recommended 20 mg IV lasix between the 2 units. - In addition she recommeded NS 75 mls/hr overnight. - Discussed plan with ortho. - Labs for morning ordered by ortho - Plan for OR tomorrow. (2) Acute renal failure Comment: - Due to severe rhabdo - Renal US unremarkable - Creat at 5.32 today - Serum creatinine daily - Given increasing anasarca improved. - Discussed paln with Dr. Bradford from Nephrology, NS at 75 ml/hr will be started after blood transfusion - Cardiac ECHO obtained, preserved EF and LV function noted (3) Anxiety and depression Comment: - On Effexor and ativan - supportive care provided (4) Cellulitis Comment: - LLE, knee area - Renally dosed Vanco as per ortho with random troughs - Dr. Shelby consulted and agrees with Vanco - Follow cultures (5) Compartment syndrome Comment: - Unclear cause, may have been trauma during syncope/overdose, patient has no recollection of events - s/p fasciotomy and debridement 09/20/18, 09/21/18 and 09/25/18 - Will need continued surgical debridements as per ortho - Defer to orthopedics for continued management, concern for preservation of limb and avoiding amputation - Pain control (6) LFT elevation Comment: - Due to a combination of rhabdo and low prefusion state. - Pt has h/o Hep C treated in the past - LFTs slowly improving - Will recheck tomorrow with labs (7) Polysubstance (including opioids) dependence w/o physiol dependence Comment: - Has been on suboxone at [facility] - Suboxone on hold while inpatient and acutely ill (8) Rhabdomyolysis Comment: - CPK almost 70K at admission - down to <3K today (9) Tobacco use disorder Comment: - Cessation encouraged (10) DVT prophylaxis Comment: - HSQ held due to acute blood loss anemia Status and Disposition: Inpatient, dispo TBD, status: guarded
[2018-09-27] MEDS: oxyCODONE TAB* 5 MG TAB PO PRN (18:31)
[2018-09-27] MEDS: Morphine VIAL* 4 MG/ML VIAL (1 ml vial) IV PRN (21:33)
[2018-09-28] MEDS: oxyCODONE TAB* 5 MG TAB PO PRN ×4 (01:13→21:16)
[2018-09-28] MEDS: NS 0.9% 1000 ML** 1,000 ML IV SCH ×2 (01:42→20:30)
[2018-09-28 04:04] LABS: Hematocrit 24 % (35-47); Hemoglobin 8.1 g/dl (12.0-16.0)
[2018-09-28] MEDS ORDERED: Vancomycin Random Level* NOTE FOLLOW UP ONE (06:00)
[2018-09-28] MEDS ORDERED: Lactated Ringers 1000 ML Bag* 1,000 ML IV SCH (06:00)
[2018-09-28 06:34] LABS: Hematocrit 24 % (35-47); Hemoglobin 8.2 g/dl (12.0-16.0); Mean Corpuscular HGB Conc 35 g/dl (31-36); Mean Corpuscular Hemoglobin 30 pg (27-31); Mean Corpuscular Volume 87 fL (80-97); Mean Platelet Volume 8.3 fL (7.4-10.4); Platelet Count 282 10^3/ul (150-450); Red Blood Count 2.72 10^6/ul (4.00-5.40); Red Cell Distribution Width 14 % (10.5-15); White Blood Count 10.8 10^3/ul (3.5-10.8)
[2018-09-28 06:41] LABS: Albumin 2.4 g/dL (3.2-5.2); Albumin/Globulin Ratio 0.9 (1-3); BUN/Creatinine Ratio 9.3 (8-20); EGFR African American 11.5 (>60); EGFR Non-African American 9.5 (>60); Globulin 2.6 g/dL (2-4); Indirect Bilirubin 0.3 mg/dL (0.3-1.0); Potassium 3.9 mmol/L (3.5-5.0); Total Bilirubin 0.4 mg/dL (0.2-1.0)
[2018-09-28 07:07] LABS: Vancomycin Random 17.3 mcg/mL
[2018-09-28] MEDS: Pantoprazole TAB * 40 MG TAB PO SCH (08:01)
[2018-09-28] MEDS: Cetirizine* 10 MG TAB PO SCH (08:01)
[2018-09-28] MEDS: Venlafaxine EXT RELEASE CAP* 75 MG PO SCH (08:01)
[2018-09-28] MEDS: Multivitamins/Minerals TAB PO SCH (08:04)
[2018-09-28] MEDS: Docusate CAP* 100 MG PO SCH ×2 (08:04→21:16)
[2018-09-28] MEDS: Montelukast Sodium TAB* 10 MG PO SCH (08:06)
[2018-09-28] MEDS: Folic Acid TAB* 1 MG PO SCH (08:06)
[2018-09-28] MEDS: Thiamine TAB* 100 MG TAB PO SCH (08:06)
[2018-09-28] MEDS ORDERED: Vancomycin(*) 1,000 MG in NS 0.9% 250 ML* 250 ML IVPB ONE (10:00)
--- NOTE | 2018-09-28 13:10 | PN ---
Subjective Date of Service: 09/28/18 Interval History: Resting in bed on assessment. Reports pain in left leg is worse today than yesterday. Denies feeling "swollen" as she has previously after receiving IVF. Denies chest pain, palpitations, sob, nausea, vomiting, diarrhea. Objective Active Medications: Acetaminophen (Tylenol Tab*) 650 mg PO Q6H PRN PRN Reason: PAIN OR TEMPERATURE Cetirizine HCl (Zyrtec*) 10 mg PO DAILY [facility] Last Admin: 09/28/18 08:01 Dose: 10 mg Diphenhydramine HCl (Benadryl Iv*) 25 mg IV Q6H PRN PRN Reason: itching Diphenhydramine HCl (Benadryl Po*) 25 mg PO Q4H PRN PRN Reason: ITCHING Last Admin: 09/20/18 19:55 Dose: 25 mg Docusate Sodium (Colace Cap*) 100 mg PO BID [facility] Last Admin: 09/28/18 08:04 Dose: Not Given Folic Acid (Folvite Tab*) 1 mg PO DAILY [facility] Last Admin: 09/28/18 08:06 Dose: Not Given Lactated Ringer's (Lactated Ringers 1000 Ml Bag*) 1,000 mls @ 125 mls/hr IV PER RATE [facility] Last Admin: 09/28/18 07:09 Dose: 125 mls/hr Sodium Chloride (Ns 0.9% 1000 Ml*) 1,000 mls @ 75 mls/hr IV PER RATE [facility] Last Admin: 09/28/18 01:42 Dose: 75 mls/hr Lidocaine (Xylocaine 2% Viscous*) 15 ml SWISH SPIT TID PRN PRN Reason: PAIN Last Admin: 09/24/18 08:29 Dose: 15 ml Lorazepam (Ativan Tab(*)) 1 mg PO Q6H PRN PRN Reason: ANXIETY Last Admin: 09/27/18 20:13 Dose: 1 mg Montelukast Sodium (Singulair Tab*) 10 mg PO DAILY [facility] Last Admin: 09/28/18 08:06 Dose: Not Given Morphine Sulfate (Morphine Vial*) 2 mg IV Q2H PRN PRN Reason: PAIN Last Admin: 09/27/18 21:33 Dose: 2 mg Multivitamins/Minerals (Theragran/Minerals Tab*) 1 tab PO DAILY [facility] Last Admin: 09/28/18 08:04 Dose: Not Given Ondansetron HCl (Zofran Inj*) 4 mg IV Q6H PRN PRN Reason: nausea Oxycodone HCl (Roxycodone Tab*) 10 mg PO Q4H PRN PRN Reason: PAIN - SEVERE Last Admin: 09/28/18 11:09 Dose: 10 mg Oxycodone/Acetaminophen (Percocet 5/325 Tab*) 1 tab PO Q4H PRN PRN Reason: PAIN Oxycodone/Acetaminophen (Percocet 5/325 Tab*) 2 tab PO Q4H PRN PRN Reason: PAIN Last Admin: 09/27/18 20:12 Dose: 2 tab Pantoprazole Sodium (Protonix Tab *) 40 mg PO DAILY [facility] Last Admin: 09/28/18 08:01 Dose: 40 mg Pharmacy Consult (Vancomycin Per Pharmacy*) 1 note FOLLOW UP .VANC PER PHARMACY [facility] Pharmacy Consult (Vancomycin Random Level*) 1 note FOLLOW UP ONCE ONE Stop: 09/29/18 06:01 Thiamine HCl (Vitamin B-1 Tab*) 100 mg PO DAILY [facility] Last Admin: 09/28/18 08:06 Dose: Not Given Venlafaxine HCl (Effexor Xr Cap*) 150 mg PO DAILY [facility] Last Admin: 09/28/18 08:01 Dose: 150 mg Vital Signs - 8 hr 09/28/18 09/28/18 09/28/18 06:14 06:15 07:26 Temperature 98.1 F Pulse Rate 93 Respiratory 18 18 17 Rate Blood Pressure 126/90 (mmHg) O2 Sat by Pulse 90 Oximetry 09/28/18 09/28/18 09/28/18 07:53 08:00 08:25 Temperature Pulse Rate 91 Respiratory 18 18 Rate Blood Pressure (mmHg) O2 Sat by Pulse 95 95 Oximetry 09/28/18 09/28/18 11:09 11:26 Temperature 98.9 F Pulse Rate 88 Respiratory 18 16 Rate Blood Pressure 132/70 (mmHg) O2 Sat by Pulse 95 Oximetry Oxygen Devices in Use Now: None Appearance: NAD Eyes: No Scleral Icterus Ears/Nose/Mouth/Throat: Clear Oropharnyx, Mucous Membranes Moist Neck: NL Appearance and Movements; NL JVP Respiratory: Symmetrical Chest Expansion and Respiratory Effort, Clear to Auscultation Cardiovascular: NL Sounds; No Murmurs; No JVD, RRR Abdominal: NL Sounds; No Tenderness; No Distention Lymphatic: No Cervical Adenopathy Extremities: No Clubbing, Cyanosis, - - Trace to +1 RLE. No edema to left knee and above. Unable to fulling assess edema to LLE due to dressing. Skin: - - Dressing to LLE CDI Neurological: Alert and Oriented x 3, - - Sensation intact to RLE and left knee and above. Sensation impaired to left toes Nutrition: Taking PO's Result Diagrams: 09/28/18 06:15 09/28/18 06:15 Additional Lab and Data: Laboratory Results - last 24 hr 09/27/18 09/27/18 09/27/18 14:37 14:40 14:40 WBC 9.7 RBC 2.13 L Hgb 6.3 L* Hct 19 L MCV 88 MCH 30 MCHC 34 RDW 15 Plt Count 260 MPV 8.6 Neut % (Auto) 57.2 Lymph % (Auto) 24.4 [place] % (Auto) 13.4 Eos % (Auto) 4.1 Baso % (Auto) 0.9 Absolute Neuts (auto) 5.6 Absolute Lymphs (auto) 2.4 Absolute Monos (auto) 1.3 H Absolute Eos (auto) 0.4 Absolute Basos (auto) 0.1 Absolute Nucleated RBC 0 Nucleated RBC % 0.1 Sodium 144 Potassium 3.3 L Chloride 104 Carbon Dioxide 34 H Anion Gap 6 BUN 50 H Creatinine 5.32 H Est GFR ( Amer) 10.5 Est GFR (Non-Af Amer) 8.7 BUN/Creatinine Ratio 9.4 Glucose 116 H Calcium 7.8 L Total Bilirubin Direct Bilirubin Indirect Bilirubin AST ALT Alkaline Phosphatase Total Creatine Kinase 2752 H Total Protein Albumin Globulin Albumin/Globulin Ratio Random Vancomycin Blood Type B Positive Antibody Screen Negative Crossmatch See Detail 09/28/18 09/28/18 09/28/18 01:57 06:15 06:15 WBC 10.8 RBC 2.72 L Hgb 8.1 L 8.2 L Hct 24 L 24 L MCV 87 MCH 30 MCHC 35 RDW 14 Plt Count 282 MPV 8.3 Neut % (Auto) Lymph % (Auto) [place] % (Auto) Eos % (Auto) Baso % (Auto) Absolute Neuts (auto) Absolute Lymphs (auto) Absolute Monos (auto) Absolute Eos (auto) Absolute Basos (auto) Absolute Nucleated RBC Nucleated RBC % Sodium 143 Potassium 3.9 Chloride 105 Carbon Dioxide 30 Anion Gap 8 BUN 46 H Creatinine 4.93 H Est GFR ( Amer) 11.5 Est GFR (Non-Af Amer) 9.5 BUN/Creatinine Ratio 9.3 Glucose 99 Calcium 8.0 L Total Bilirubin 0.40 Direct Bilirubin 0.10 Indirect Bilirubin 0.3 AST 88 H ALT 8 Alkaline Phosphatase 191 H Total Creatine Kinase Total Protein 5.0 L Albumin 2.4 L Globulin 2.6 Albumin/Globulin Ratio 0.9 L Random Vancomycin 17.3 Blood Type Antibody Screen Crossmatch Microbiology and Other Data: Microbiology 09/20/18 02:35 Nasal Screen MRSA (PCR) - Final Nasal Mrsa Not Detected Diagnostic Imaging: CARDIAC ECHO: Conclusions Global left ventricular wall motion and contractility are within normal limits. There is normal left ventricular systolic function. The estimated ejection fraction is 55-60%. There is no evidence of aortic stenosis. There is mild mitral regurgitation. There is mild tricuspid regurgitation. There is no significant pericardial effusion. RENAL US: Patient Name: EDD LOVING Medical Record#: [id number] Ordering Physician: Radha Ruvalcaba MD Acct.#: [id number] : 1970 Age: 47 Sex: F Location: SURGICAL STAY UNIT Exam Date: 09/20/181746 ADM Status: ADM IN Order Information: US RENAL COMPLETE Accession Number: [id number] CPT: 73156 EXAM: US Retroperitoneal Limited, Kidneys EXAM DATE/TIME: 09/20/2018 6:15 PM CLINICAL HISTORY: 47 years old, female; Signs and symptoms; Other: [place]lig[place]; Additional info: Re: Arf TECHNIQUE: Real-time ultrasound of the retroperitoneum with image documentation. Examination was focused on the kidneys. COMPARISON: No relevant prior studies available. FINDINGS: Right kidney: Right kidney measures 12.9 x 6.2 x 6.4 cm. No hydronephrosis, stone or mass. Left kidney: Left kidney measures 11.3 x 6.4 x 6.3 cm. Bladder: The bladder is not evaluated. IMPRESSION: No hydronephrosis, stone or mass. Assess/Plan/Problems-Billing Assessment: This is a 47 yo f with h/o polysubstance abuse, anxiety/depression, now on Suboxone and Clonazepam presented with left leg compartment syndrome after syncope and collapse 2/2 potential overdose. - Patient Problems (1) Anemia Comment: - H&H down form 8.5/25 on 09/25/18 to 6.3/ yesterday and received 2 units PRBC last night, which she has responded well. H&H now 8.11/05 - Suspected etiology of anemia multifactoral. Labs drawn for further evaluation including LDH, haptoglobin, epo, b12, ferritin, tibc, folate. Patient would benefit from repeat testing of HIV as last test was several years ago. I will get her permission before ordering. - Cont monitoring H&H (2) Acute renal failure Comment: - Due to severe rhabdo - Renal US unremarkable - Creat at 4.93 today - Serum creatinine daily - Patient tolerated 2 units PRBC with 20 mg IV lasix between followed by NS at 75 ml/hr overnight. - Urine output improving as she had 1100 mls out from 1800 yesterday to 0600 today - Cardiac ECHO obtained, preserved EF and LV function noted - Cont IVF as she is starting to increase output as creatinine improves (3) Anxiety and depression Comment: - On Effexor and ativan - supportive care provided (4) Cellulitis Comment: - LLE, knee area - Renally dosed Vanco as per ortho with random troughs - Dr. Shelby consulted and agrees with Vanco - Follow cultures (5) Compartment syndrome Comment: - Unclear cause, may have been trauma during syncope/overdose, patient has no recollection of events - s/p fasciotomy and debridement 09/20/18, 09/21/18, 09/25/18 and 09/28/18 - Will need continued surgical debridements as per ortho - Defer to orthopedics for continued management, concern for preservation of limb and avoiding amputation - Pain control (6) LFT elevation Comment: - Due to a combination of rhabdo and low prefusion state. - Pt has h/o Hep C treated in the past - LFTs slowly improving - Will monitor (7) Polysubstance (including opioids) dependence w/o physiol dependence Comment: - Has been on suboxone at [facility] - Suboxone on hold while inpatient and acutely ill (8) Rhabdomyolysis Comment: - CPK almost 70K at admission - down to <3K (9) Tobacco use disorder Comment: - Cessation encouraged (10) DVT prophylaxis Comment: - Restart heparin when ortho deems approp today after she returns from OR Status and Disposition: Inpatient, dispo TBD, status: guarded Attending: Yaw Raygoza
[2018-09-28 14:32] LABS: % Iron Saturation 8 % (15-55); Iron 23 ug/dL (50-212); LDH 524 U/L (140-271); Total Iron Binding Capacity 286 mcg/dL (250-450); Transferrin 204 mg/dL (203-362)
[2018-09-28 14:51] LABS: Ferritin 126.9 ng/mL (11-307)
[2018-09-28] MEDS ORDERED: Midazolam* 1 MG/ML 2 ML VIAL (2 MG) ONE (15:06)
[2018-09-28] MEDS ORDERED: fentaNYL* 50 MCG/ML 5 ML VIAL (250 MCG VIAL) ONE (15:06)
[2018-09-28] MEDS ORDERED: Propofol* 10 MG/ML 20 ML BTL ONE (15:09)
[2018-09-28] MEDS ORDERED: fentaNYL* 50 MCG/ML 2 ML VIAL (100 MCG VIAL) IV PRN (16:11)
[2018-09-28] MEDS ORDERED: DiMENhydriNATE IV* 50 MG/ML VIAL IV PUSH PRN (16:11)
[2018-09-28] MEDS ORDERED: Morphine VIAL* 4 MG/ML VIAL (1 ml vial) IV PRN (16:11)
[2018-09-28] MEDS ORDERED: Naloxone* 0.4 MG/ML 1 ML VIAL IV PRN (16:11)
[2018-09-28] MEDS ORDERED: KETAMINE HCL* 50 MG/ML 10 ML VIAL ONE (16:45)
[2018-09-28] MEDS ORDERED: Morphine VIAL* 10 MG/ML 1 ML VIAL ONE (16:48)
[2018-09-28] MEDS ORDERED: Lidocaine 2% PF * 5 ML VIAL ONE (17:24)
[2018-09-28] MEDS ORDERED: Ondansetron INJ* 2 MG/ML VIAL ONE (17:26)
--- NOTE | 2018-09-28 17:42 | OP ---
Operative Report - Blank - Operative Report Date of Operation: 09/28/18 Note: PATIENT: Peyton Trujillo DATE OF : 1970 DATE OF SURGERY: 09/28/2018 SURGEON: jC Appiah MD RABBET OPERATOR: ANN MARIE Marie, whos assistance was necessary for positioning, retraction, help with instrumentation, and closure. ANESTHESIOLOGIST: Dr. Chuck Marcelino PREOPERATIVE DIAGNOSIS: Left lower leg compartment syndrome with muscle POSTOPERATIVE DIAGNOSIS: Left lower leg compartment syndrome with muscle OPERATION: 1. Left lower leg irrigation and debridement 2. Medial wound closure 3. Placement of wound VAC to lateral wound ANESTHESIA: GETA IMPLANTS: none TOURNIQUET TIME: none SPECIMENS: none ESTIMATED BLOOD LOSS: minimal COMPLICATIONS: none STATUS: Stable from the operating room to the recovery room and then back to the floor. INDICATIONS FOR PROCEDURE: Peyton had 4 compartment fasciotomies for compartment syndrome and 2 prior I& Ds. Both operative and non-operative treatment alternatives were reviewed. Further, the nature and risks of surgery were reviewed in careful detail. Our discussions regarding the risks of surgery included, but were not limited to, infection, wound problems, nerve injury, neuroma, RSD, persistent symptoms, blood clot, need for further surgery, need for amputation, failure of the surgery, and even the remote chance of catastrophic complication. DESCRIPTION OF PROCEDURE: The patient was seen in the preoperative holding unit and informed written consent was obtained. The appropriate extremity was marked. The patient was then brought to the operating room and carefully positioned on the operating room table. Anesthesia was induced. All bony prominences were padded with great care. A well-padded thigh tourniquet was placed. A chlorhexidine based pre- scrub was performed followed by a betadine prep and drape in standard sterile fashion. A surgical safety pause was then conducted in which we confirmed the appropriate patient, extremity, planned procedure, availability of equipment, indication and administration of prophylactic antibiotics, and DVT prophylaxis in the form of a compression boot on the non-surgical extremity. I opened up her previous medial and lateral leg incisions. Medially, the wound measured 22 cm in length, 5 cm in width, by 5 cm in depth. Laterally, the wound measured 23 cm in length, 6 cm in width, 5 cm in depth. Medially, there was a little bit of the muscle the deep posterior compartment, which was sharply debrided with a 15 blade scalpel. Laterally, there was more muscle , which I sharply debrided with a 15 blade scalpel and electrocautery. The debridement including the muscle, fascia, down to the periosteum and bone layer. Hemostasis was then obtained. The medial wound was closed in a layered fashion utilizing #1 Vicryl, 0 Vicryl, 2-0 Vicryl, skin lindsey. A Timmy drain was left deep to the muscle and fascia. Laterally, I placed a wound VAC with tension applied with a vessel loop. This held good suction. The patient was then awakened from anesthesia and transferred to the recovery room in stable condition. There were no complications. All needle and sponge counts were correct at the end of the case. ATTESTATION: I attest I was present and scrubbed and performed the critical portions of the procedure myself. POSTOPERATIVE PLAN: The plan is to return to the operating room next Tuesday for a repeat I&D.
[2018-09-28] MEDS ORDERED: Morphine VIAL* 4 MG/ML VIAL (1 ml vial) ONE (18:37)
[2018-09-28] MEDS ORDERED: oxyCODONE/Acetamin 5/325 MG* TAB ONE (18:38)
[2018-09-28] MEDS: oxyCODONE/Acetamin 5/325 MG* TAB PO PRN ×2 (18:38→23:26)
[2018-09-28] MEDS: Morphine VIAL* 4 MG/ML VIAL (1 ml vial) IV PRN (22:01)
[2018-09-28] MEDS: Heparin VIAL(*) 5000 UNITS/ML VIAL (FIVE THOUSAND) SUBCUT SCH (22:01)
[2018-09-29] MEDS: Morphine VIAL* 4 MG/ML VIAL (1 ml vial) IV PRN ×5 (01:14→21:33)
[2018-09-29] MEDS: oxyCODONE TAB* 5 MG TAB PO PRN ×2 (01:20→10:53)
[2018-09-29] MEDS: oxyCODONE/Acetamin 5/325 MG* TAB PO PRN ×2 (05:06→19:32)
[2018-09-29] MEDS: Heparin VIAL(*) 5000 UNITS/ML VIAL (FIVE THOUSAND) SUBCUT SCH ×3 (05:07→21:28)
[2018-09-29 05:54] LABS: ABS Basophils 0.1 10^3/ul (0-0.2); ABS Eosinophils 0.3 10^3/ul (0-0.6); ABS Lymphocytes 1.7 10^3/ul (1.0-4.8); ABS Monocytes 1.2 10^3/ul (0-0.8); ABS Neutrophils 8.2 10^3/ul (1.5-7.7); ABS Nucleated RBC 0 10^3/ul; Eosinophil % 2.6 %; Hematocrit 23 % (35-47); Hemoglobin 7.6 g/dl (12.0-16.0); Lymphocyte % 14.7 %; Mean Corpuscular HGB Conc 34 g/dl (31-36); Mean Corpuscular Hemoglobin 29 pg (27-31); Mean Corpuscular Volume 88 fL (80-97); Mean Platelet Volume 8.5 fL (7.4-10.4); Nucleated Red Blood Cells % 0.1; Platelet Count 322 10^3/ul (150-450); Red Blood Count 2.59 10^6/ul (4.00-5.40); Red Cell Distribution Width 15 % (10.5-15); White Blood Count 11.5 10^3/ul (3.5-10.8)
[2018-09-29] MEDS ORDERED: Vancomycin Random Level* NOTE FOLLOW UP ONE (06:00)
[2018-09-29 06:07] LABS: BUN/Creatinine Ratio 9.7 (8-20); Calcium 7.8 mg/dL (8.6-10.3); EGFR African American 13.3 (>60); Magnesium 1.7 mg/dL (1.9-2.7); Potassium 3.9 mmol/L (3.5-5.0)
[2018-09-29 06:33] LABS: Vancomycin Random 19.6 mcg/mL
[2018-09-29] MEDS ORDERED: Magnesium Sulfate 2 GM IV* 2 GM/50 ML BAG IVPB ONE (08:14)
[2018-09-29] MEDS ORDERED: NS 0.9% 1000 ML** 1,000 ML IV SCH ×2 (08:14→08:34)
[2018-09-29] MEDS ORDERED: Furosemide IV* 10 MG/ML 2 ML VIAL (20 MG) IV ONE (08:36)
--- NOTE | 2018-09-29 09:54 | PN ---
Subjective Date of Service: 09/29/18 Interval History: Call received from nurse this morning that patient is "puffy" which nurse remembers patient experiencing previously when she was receiving fluids. No sob , cp or other symptoms. VSS. Patient reports left lower leg pain. Denies cp, palpitations, sob, fever, chills. Objective Active Medications: Acetaminophen (Tylenol Tab*) 650 mg PO Q6H PRN PRN Reason: PAIN OR TEMPERATURE Cetirizine HCl (Zyrtec*) 10 mg PO DAILY [facility] Last Admin: 09/28/18 08:01 Dose: 10 mg Diphenhydramine HCl (Benadryl Iv*) 25 mg IV Q6H PRN PRN Reason: itching Diphenhydramine HCl (Benadryl Po*) 25 mg PO Q4H PRN PRN Reason: ITCHING Last Admin: 09/20/18 19:55 Dose: 25 mg Docusate Sodium (Colace Cap*) 100 mg PO BID [facility] Last Admin: 09/28/18 21:16 Dose: 100 mg Folic Acid (Folvite Tab*) 1 mg PO DAILY [facility] Last Admin: 09/28/18 08:06 Dose: Not Given Heparin Sodium (Porcine) (Heparin Vial(*)) 5,000 units SUBCUT Q8HR [facility] Last Admin: 09/29/18 05:07 Dose: 5,000 units Sodium Chloride (Ns 0.9% 1000 Ml*) 1,000 mls @ 75 mls/hr IV PER RATE [facility] Lidocaine (Xylocaine 2% Viscous*) 15 ml SWISH SPIT TID PRN PRN Reason: PAIN Last Admin: 09/24/18 08:29 Dose: 15 ml Lorazepam (Ativan Tab(*)) 1 mg PO Q6H PRN PRN Reason: ANXIETY Last Admin: 09/27/18 20:13 Dose: 1 mg Montelukast Sodium (Singulair Tab*) 10 mg PO DAILY [facility] Last Admin: 09/28/18 08:06 Dose: Not Given Morphine Sulfate (Morphine Vial*) 2 mg IV Q2H PRN PRN Reason: PAIN Last Admin: 09/29/18 08:28 Dose: 2 mg Multivitamins/Minerals (Theragran/Minerals Tab*) 1 tab PO DAILY [facility] Last Admin: 09/28/18 08:04 Dose: Not Given Ondansetron HCl (Zofran Inj*) 4 mg IV Q6H PRN PRN Reason: nausea Oxycodone HCl (Roxycodone Tab*) 10 mg PO Q4H PRN PRN Reason: PAIN - SEVERE Last Admin: 09/29/18 01:20 Dose: 10 mg Oxycodone/Acetaminophen (Percocet 5/325 Tab*) 1 tab PO Q4H PRN PRN Reason: PAIN Oxycodone/Acetaminophen (Percocet 5/325 Tab*) 2 tab PO Q4H PRN PRN Reason: PAIN Last Admin: 09/29/18 05:06 Dose: 2 tab Pantoprazole Sodium (Protonix Tab *) 40 mg PO DAILY [facility] Last Admin: 09/28/18 08:01 Dose: 40 mg Pharmacy Consult (Vancomycin Per Pharmacy*) 1 note FOLLOW UP .VANC PER PHARMACY [facility] Thiamine HCl (Vitamin B-1 Tab*) 100 mg PO DAILY [facility] Last Admin: 09/28/18 08:06 Dose: Not Given Venlafaxine HCl (Effexor Xr Cap*) 150 mg PO DAILY [facility] Last Admin: 09/28/18 08:01 Dose: 150 mg Vital Signs - 8 hr 09/29/18 09/29/18 09/29/18 02:29 03:48 03:58 Temperature Pulse Rate Respiratory 16 16 Rate Blood Pressure (mmHg) O2 Sat by Pulse 96 Oximetry 09/29/18 09/29/18 09/29/18 05:06 05:14 07:32 Temperature 98.0 F Pulse Rate 85 Respiratory 16 16 16 Rate Blood Pressure 128/90 (mmHg) O2 Sat by Pulse 96 Oximetry 09/29/18 09/29/18 08:28 08:45 Temperature Pulse Rate Respiratory 16 16 Rate Blood Pressure (mmHg) O2 Sat by Pulse 96 Oximetry Oxygen Devices in Use Now: None Appearance: NAD Eyes: No Scleral Icterus Ears/Nose/Mouth/Throat: Clear Oropharnyx, Mucous Membranes Moist Neck: NL Appearance and Movements; NL JVP Respiratory: Symmetrical Chest Expansion and Respiratory Effort, Clear to Auscultation Cardiovascular: NL Sounds; No Murmurs; No JVD, RRR, - - Trace to +1 edema Abdominal: NL Sounds; No Tenderness; No Distention Lymphatic: No Cervical Adenopathy Extremities: No Clubbing, Cyanosis Skin: No Rash or Ulcers Neurological: Alert and Oriented x 3 Nutrition: Taking PO's Result Diagrams: 09/29/18 05:43 09/29/18 05:43 Additional Lab and Data: Laboratory Results - last 24 hr 09/28/18 09/29/18 09/29/18 13:39 05:43 05:43 WBC 11.5 H RBC 2.59 L Hgb 7.6 L Hct 23 L MCV 88 MCH 29 MCHC 34 RDW 15 Plt Count 322 MPV 8.5 Neut % (Auto) 71.5 Lymph % (Auto) 14.7 [place] % (Auto) 10.5 Eos % (Auto) 2.6 Baso % (Auto) 0.7 Absolute Neuts (auto) 8.2 H Absolute Lymphs (auto) 1.7 Absolute Monos (auto) 1.2 H Absolute Eos (auto) 0.3 Absolute Basos (auto) 0.1 Absolute Nucleated RBC 0 Nucleated RBC % 0.1 Haptoglobin 138 Sodium 140 Potassium 3.9 Chloride 105 Carbon Dioxide 30 Anion Gap 5 BUN 42 H Creatinine 4.35 H Est GFR ( Amer) 13.3 Est GFR (Non-Af Amer) 11.0 BUN/Creatinine Ratio 9.7 Glucose 107 H Calcium 7.8 L Magnesium 1.7 L Erythropoietin 12.6 Random Vancomycin 19.6 Microbiology and Other Data: Microbiology 09/20/18 02:35 Nasal Screen MRSA (PCR) - Final Nasal Mrsa Not Detected Diagnostic Imaging: CARDIAC ECHO: Conclusions Global left ventricular wall motion and contractility are within normal limits. There is normal left ventricular systolic function. The estimated ejection fraction is 55-60%. There is no evidence of aortic stenosis. There is mild mitral regurgitation. There is mild tricuspid regurgitation. There is no significant pericardial effusion. RENAL US: Patient Name: EDD LOVING Medical Record#: [id number] Ordering Physician: Radha Ruvalcaba MD Acct.#: [id number] : 1970 Age: 47 Sex: F Location: SURGICAL STAY UNIT Exam Date: 09/20/181746 ADM Status: ADM IN Order Information: US RENAL COMPLETE Accession Number: [id number] CPT: 36814 EXAM: US Retroperitoneal Limited, Kidneys EXAM DATE/TIME: 09/20/2018 6:15 PM CLINICAL HISTORY: 47 years old, female; Signs and symptoms; Other: [place]lig[place]; Additional info: Re: Arf TECHNIQUE: Real-time ultrasound of the retroperitoneum with image documentation. Examination was focused on the kidneys. COMPARISON: No relevant prior studies available. FINDINGS: Right kidney: Right kidney measures 12.9 x 6.2 x 6.4 cm. No hydronephrosis, stone or mass. Left kidney: Left kidney measures 11.3 x 6.4 x 6.3 cm. Bladder: The bladder is not evaluated. IMPRESSION: No hydronephrosis, stone or mass. Assess/Plan/Problems-Billing Assessment: This is a 47 yo f with h/o polysubstance abuse, anxiety/depression, now on Suboxone and Clonazepam presented with left leg compartment syndrome after syncope and collapse 2/2 potential overdose. - Patient Problems (1) Anemia Comment: - Anemia improving after PRBCs - Suspected etiology of anemia multifactoral. - It should be noted patient had approx 800 out in wound vac prior to drop in H& H. - Labs drawn for further evaluation including LDH, haptoglobin, epo, b12, ferritin, tibc, folate. Patient would benefit from repeat testing of HIV as last test was several years ago. - Cont monitoring H&H (2) Edema Comment: - On assessment patient does have some edema to RUE and abd feels "tight" per pain. Also has +1 edema to RLE. No edema to upper portion of LLE. Unable to assessment lower portion of LLE due to dressing. - No edema or swelling to LUE. I discussed with nurse that some of the symptoms could be contribued to the peripherial IV in RUE infusing NS and encourage to use midline in LUE if possible. - Patient has no pain movement of bilateral upper extremities or RLE. Also has good ROM. - Lasix 20 mg IV ordered x1 now. (3) Acute renal failure Comment: - Due to severe rhabdo - Renal US unremarkable - Creat at 4.35 today - Serum creatinine daily - Discussed edema and creatinine with Dr Hadley who advises on Lasix 20 mg IV when needed and discontinuing IV fluids for now, reassess creatinine and restart NS if needed (4) Anxiety and depression Comment: - On Effexor and ativan - supportive care provided (5) Cellulitis Comment: - LLE, knee area - Vanco per Dr Menon's orders (6) Compartment syndrome Comment: - Unclear cause, may have been trauma during syncope/overdose, patient has no recollection of events - s/p fasciotomy and debridement 09/20/18, 09/21/18, 09/25/18 and 09/28/18 - Will need continued surgical debridements as per ortho - Defer to orthopedics for continued management, concern for preservation of limb and avoiding amputation - Pain control (7) LFT elevation Comment: - Due to a combination of rhabdo and low prefusion state. - Pt has h/o Hep C treated in the past - LFTs slowly improving - Will monitor (8) Polysubstance (including opioids) dependence w/o physiol dependence Comment: - Has been on suboxone at [facility] - Suboxone on hold while inpatient and acutely ill (9) Rhabdomyolysis Comment: - CPK almost 70K at admission - down to <3K (10) Electrolyte abnormality Comment: - Mag 1.7, therefore, replacement provided (11) Tobacco use disorder Comment: - Cessation encouraged (12) DVT prophylaxis Comment: - HSQ Status and Disposition: Inpatient, dispo TBD, status: guarded Attending: Yaw Raygoza
[2018-09-29] MEDS: Montelukast Sodium TAB* 10 MG PO SCH (09:58)
[2018-09-29] MEDS: Pantoprazole TAB * 40 MG TAB PO SCH (09:58)
[2018-09-29] MEDS: Multivitamins/Minerals TAB PO SCH (09:58)
[2018-09-29] MEDS: Thiamine TAB* 100 MG TAB PO SCH (09:58)
[2018-09-29] MEDS: Cetirizine* 10 MG TAB PO SCH (09:58)
[2018-09-29] MEDS: Venlafaxine EXT RELEASE CAP* 75 MG PO SCH (09:58)
[2018-09-29] MEDS: Docusate CAP* 100 MG PO SCH ×2 (09:59→21:28)
[2018-09-29] MEDS: Folic Acid TAB* 1 MG PO SCH (09:59)
[2018-09-29] MEDS ORDERED: Vancomycin(*) 750 MG in NS 0.9% 250 ML* 250 ML IVPB ONE (10:00)
--- NOTE | 2018-09-29 10:01 | PN ---
Progress Note - Progress Note Date of Service: 09/29/18 SOAP: Subjective: CC: compartment syndrome HPI: 47 yo woman with left leg rhabo and compartment syndrome, multiple debridements. She denies pain, and no fever, rash, or diarrhea. Objective: Vital Signs Temp 36.7 C 09/29/18 07:32 Pulse 85 09/29/18 07:32 Resp 16 09/29/18 08:45 BP 128/90 09/29/18 07:32 Pulse Ox 96 09/29/18 08:45 Intake & Output 09/28/18 09/29/18 09/29/18 18:59 06:59 18:59 Intake Total 2371 1200 Output Total 1538 865 300 Balance 833 335 -300 Weight 208 lb 14.4 oz 180 lb 8 oz Intake: IV Fluids 2371 ABX - VANCOMYCIN 280 LR 1691 NS 400 Oral 0 1200 Output: SOHAN #1 65 Urine 1338 800 300 Estimated Blood Loss 200 Gen:awake, no distress HEENT: no thrush Heart:RRR no murmur Lungs:CTA BL Abd:+BS NTND soft MSK: Left leg vac dressing Skin: no rash Laboratory Results - last 24 hr 09/28/18 09/29/18 09/29/18 13:39 05:43 05:43 WBC 11.5 H RBC 2.59 L Hgb 7.6 L Hct 23 L MCV 88 MCH 29 MCHC 34 RDW 15 Plt Count 322 MPV 8.5 Neut % (Auto) 71.5 Lymph % (Auto) 14.7 [place] % (Auto) 10.5 Eos % (Auto) 2.6 Baso % (Auto) 0.7 Absolute Neuts (auto) 8.2 H Absolute Lymphs (auto) 1.7 Absolute Monos (auto) 1.2 H Absolute Eos (auto) 0.3 Absolute Basos (auto) 0.1 Absolute Nucleated RBC 0 Nucleated RBC % 0.1 Sodium 140 Potassium 3.9 Chloride 105 Carbon Dioxide 30 Anion Gap 5 BUN 42 H Creatinine 4.35 H Est GFR ( Amer) 13.3 Est GFR (Non-Af Amer) 11.0 BUN/Creatinine Ratio 9.7 Glucose 107 H Calcium 7.8 L Magnesium 1.7 L Iron 23 L TIBC 286 % Saturation 8 L Unsat Iron Binding < 271 Transferrin 204 Ferritin 126.9 Lactate Dehydrogenase 524 H Vitamin B12 958 H Folate 14.70 Random Vancomycin 19.6 Assessment: 1. rhabdo with MARTÍN 2. compartment syndrome, multiple I&D 3. IVDU in brief remission 4. HCV, treated Plan: 1. continue vancomycin mohamud boo 10-15 through the weekend Discussed with Steve Ramirez NP
--- NOTE | 2018-09-29 10:23 | PN ---
Progress Note - Progress Note Date of Service: 09/29/18 SOAP: Subjective: []Patient seen at bedside, groggy but answers questions appropriately. Pain managed. Denies SOB, nausea, fever or chills. Left Leg elevated, splint on. Objective: [] Vital Signs Temp 98.0 F 09/29/18 07:32 Pulse 85 09/29/18 07:32 Resp 16 09/29/18 10:05 BP 128/90 09/29/18 07:32 Pulse Ox 96 09/29/18 08:45 Intake & Output 09/28/18 09/29/18 09/29/18 18:59 06:59 18:59 Intake Total 2371 1200 Output Total 1538 865 300 Balance 833 335 -300 Weight 208 lb 14.4 oz 180 lb 8 oz Intake: IV Fluids 2371 ABX - VANCOMYCIN 280 LR 1691 NS 400 Oral 0 1200 Output: SOHAN #1 65 Urine 1338 800 300 Estimated Blood Loss 200 Laboratory Results - last 24 hr 09/28/18 09/29/18 09/29/18 13:39 05:43 05:43 WBC 11.5 H RBC 2.59 L Hgb 7.6 L Hct 23 L MCV 88 MCH 29 MCHC 34 RDW 15 Plt Count 322 MPV 8.5 Neut % (Auto) 71.5 Lymph % (Auto) 14.7 [place] % (Auto) 10.5 Eos % (Auto) 2.6 Baso % (Auto) 0.7 Absolute Neuts (auto) 8.2 H Absolute Lymphs (auto) 1.7 Absolute Monos (auto) 1.2 H Absolute Eos (auto) 0.3 Absolute Basos (auto) 0.1 Absolute Nucleated RBC 0 Nucleated RBC % 0.1 Sodium 140 Potassium 3.9 Chloride 105 Carbon Dioxide 30 Anion Gap 5 BUN 42 H Creatinine 4.35 H Est GFR ( Amer) 13.3 Est GFR (Non-Af Amer) 11.0 BUN/Creatinine Ratio 9.7 Glucose 107 H Calcium 7.8 L Magnesium 1.7 L Iron 23 L TIBC 286 % Saturation 8 L Unsat Iron Binding < 271 Transferrin 204 Ferritin 126.9 Lactate Dehydrogenase 524 H Vitamin B12 958 H Folate 14.70 Random Vancomycin 19.6 Microbiology 09/25/18 14:30 Anaerobic Culture - Final Wound No Growth Day 4 09/25/18 14:30 Gram Stain - Final Leg Left Wound Culture - Final No Growth Day 4 09/25/18 14:30 Anaerobic Culture - Final Wound - Left Leg No Growth Day 4 09/25/18 14:30 Gram Stain - Final Leg Left Wound Culture - Final No Growth Day 4 09/26/18 02:43 Urine Culture - Final Urine No Growth (<1,000 CFU/mL) 09/19/18 21:55 Aerobic Blood Culture - Final Blood Venous No Growth Day 5 Anaerobic Blood Culture - Final No Growth Day 5 09/19/18 21:57 Aerobic Blood Culture - Final Blood Venous No Growth Day 5 Anaerobic Blood Culture - Final No Growth Day 5 09/21/18 06:00 Urine Culture - Final Urine No Growth (<1,000 CFU/mL) 09/20/18 02:35 Nasal Screen MRSA (PCR) - Final Nasal Mrsa Not Detected Left left DEEPTHI dry and intact, wound vac working splint on toes and foot remain insensate Assessment: []s/p repeat debridement necrotic muscle left LLE X3, medial wound closed 09/28, lateral wound with wound vac. Plan: []Continue Vancomycin as recommended by Dr. Shelby Elevation LLE on plillow while in bed, splint on to prevent equinous contracture Continue to follow.
[2018-09-29] MEDS ORDERED: Buffered Lidocaine 1% SYRIN* 1 ML/SYRINGE INTRADERM ONE (12:25)
[2018-09-30] MEDS: oxyCODONE/Acetamin 5/325 MG* TAB PO PRN ×5 (04:08→23:16)
[2018-09-30] MEDS: Morphine VIAL* 4 MG/ML VIAL (1 ml vial) IV PRN ×8 (04:16→23:17)
[2018-09-30] MEDS ORDERED: Vancomycin Random Level* NOTE FOLLOW UP ONE (05:30)
[2018-09-30] MEDS: oxyCODONE TAB* 5 MG TAB PO PRN ×2 (05:49→15:17)
[2018-09-30] MEDS: Heparin VIAL(*) 5000 UNITS/ML VIAL (FIVE THOUSAND) SUBCUT SCH ×3 (05:50→21:10)
[2018-09-30 06:01] LABS: ABS Basophils 0.1 10^3/ul (0-0.2); ABS Eosinophils 0.2 10^3/ul (0-0.6); ABS Lymphocytes 1.3 10^3/ul (1.0-4.8); ABS Monocytes 1.3 10^3/ul (0-0.8); ABS Neutrophils 11.6 10^3/ul (1.5-7.7); ABS Nucleated RBC 0 10^3/ul; Eosinophil % 1.3 %; Hematocrit 22 % (35-47); Hemoglobin 7.5 g/dl (12.0-16.0); Lymphocyte % 9.3 %; Mean Corpuscular HGB Conc 34 g/dl (31-36); Mean Corpuscular Hemoglobin 30 pg (27-31); Mean Corpuscular Volume 88 fL (80-97); Nucleated Red Blood Cells % 0.1; Platelet Count 373 10^3/ul (150-450); Red Blood Count 2.51 10^6/ul (4.00-5.40); Red Cell Distribution Width 14 % (10.5-15); White Blood Count 14.5 10^3/ul (3.5-10.8)
[2018-09-30 06:19] LABS: BUN/Creatinine Ratio 9.7 (8-20); Calcium 8.1 mg/dL (8.6-10.3); EGFR African American 15.9 (>60); EGFR Non-African American 13.1 (>60); Magnesium 2.1 mg/dL (1.9-2.7); Potassium 3.9 mmol/L (3.5-5.0)
--- NOTE | 2018-09-30 09:56 | PN ---
Subjective Date of Service: 09/30/18 Interval History: Patient has a deep pain in LT foot, but also reports numbness LT foot/calf. 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 No new issues. She is aware she is going to have more debridement on 10/02 and may eventually have foot amputated. Family History: Unchanged from Admission Social History: Unchanged from Admission Past Medical History: Unchanged from Admission Objective Active Medications: Acetaminophen (Tylenol Tab*) 650 mg PO Q6H PRN PRN Reason: PAIN OR TEMPERATURE Last Admin: 09/29/18 12:44 Dose: 650 mg Cetirizine HCl (Zyrtec*) 10 mg PO DAILY [facility] Last Admin: 09/29/18 09:58 Dose: 10 mg Diphenhydramine HCl (Benadryl Iv*) 25 mg IV Q6H PRN PRN Reason: itching Diphenhydramine HCl (Benadryl Po*) 25 mg PO Q4H PRN PRN Reason: ITCHING Last Admin: 09/20/18 19:55 Dose: 25 mg Docusate Sodium (Colace Cap*) 100 mg PO BID [facility] Last Admin: 09/29/18 21:28 Dose: 100 mg Folic Acid (Folvite Tab*) 1 mg PO DAILY [facility] Last Admin: 09/29/18 09:59 Dose: 1 mg Heparin Sodium (Porcine) (Heparin Vial(*)) 5,000 units SUBCUT Q8HR [facility] Last Admin: 09/30/18 05:50 Dose: 5,000 units Lactated Ringer's (Lactated Ringers 1000 Ml Bag*) 1,000 mls @ 125 mls/hr IV PER RATE [facility] Lidocaine (Xylocaine 2% Viscous*) 15 ml SWISH SPIT TID PRN PRN Reason: PAIN Last Admin: 09/24/18 08:29 Dose: 15 ml Lorazepam (Ativan Tab(*)) 1 mg PO Q6H PRN PRN Reason: ANXIETY Last Admin: 09/27/18 20:13 Dose: 1 mg Montelukast Sodium (Singulair Tab*) 10 mg PO DAILY [facility] Last Admin: 09/29/18 09:58 Dose: 10 mg Morphine Sulfate (Morphine Vial*) 2 mg IV Q2H PRN PRN Reason: PAIN Last Admin: 09/30/18 08:49 Dose: 2 mg Multivitamins/Minerals (Theragran/Minerals Tab*) 1 tab PO DAILY [facility] Last Admin: 09/29/18 09:58 Dose: 1 tab Ondansetron HCl (Zofran Inj*) 4 mg IV Q6H PRN PRN Reason: nausea Oxycodone HCl (Roxycodone Tab*) 10 mg PO Q4H PRN PRN Reason: PAIN - SEVERE Last Admin: 09/30/18 05:49 Dose: 10 mg Oxycodone/Acetaminophen (Percocet 5/325 Tab*) 1 tab PO Q4H PRN PRN Reason: PAIN Oxycodone/Acetaminophen (Percocet 5/325 Tab*) 2 tab PO Q4H PRN PRN Reason: PAIN Last Admin: 09/30/18 08:49 Dose: 2 tab Pantoprazole Sodium (Protonix Tab *) 40 mg PO DAILY [facility] Last Admin: 09/29/18 09:58 Dose: 40 mg Pharmacy Consult (Vancomycin Per Pharmacy*) 1 note FOLLOW UP .VANC PER PHARMACY [facility] Thiamine HCl (Vitamin B-1 Tab*) 100 mg PO DAILY [facility] Last Admin: 09/29/18 09:58 Dose: 100 mg Venlafaxine HCl (Effexor Xr Cap*) 150 mg PO DAILY [facility] Last Admin: 09/29/18 09:58 Dose: 150 mg Vital Signs - 8 hr 09/30/18 09/30/18 09/30/18 03:53 04:08 04:16 Temperature 36.8 C Pulse Rate 95 Respiratory 17 16 18 Rate Blood Pressure 156/85 (mmHg) O2 Sat by Pulse 93 Oximetry 09/30/18 09/30/18 09/30/18 05:37 05:49 07:38 Temperature 36.4 C Pulse Rate 80 Respiratory 16 16 16 Rate Blood Pressure 128/81 (mmHg) O2 Sat by Pulse 95 Oximetry Oxygen Devices in Use Now: None Appearance: alert, no distress Eyes: No Scleral Icterus Ears/Nose/Mouth/Throat: Clear Oropharnyx Neck: Trachea Midline Respiratory: Clear to Auscultation, Clear to Percussion Cardiovascular: NL Sounds; No Murmurs; No JVD, RRR, - - mild edema bilat UE Abdominal: NL Sounds; No Tenderness; No Distention, No Hepatosplenomegaly Extremities: - - LT calf/ankle/foot in bandage, drains in place, toes warm, good cap refill Neurological: Alert and Oriented x 3 Lines/Tubes/Other Access: Clean, Dry and Intact PICC Line Result Diagrams: 09/30/18 05:49 09/30/18 05:49 Additional Lab and Data: Laboratory Tests 09/27/18 09/30/18 14:40 05:49 Total Creatine Kinase 2752 H 689 H Random Vancomycin 20.0 Microbiology and Other Data: Microbiology 09/26/18 02:43 Urine Urine Culture - Final No Growth (<1,000 CFU/mL) 09/25/18 14:30 Wound - Left Leg Anaerobic Culture - Final No Growth Day 4 09/25/18 14:30 Wound Anaerobic Culture - Final No Growth Day 4 09/25/18 14:30 Leg Left Gram Stain - Final 09/25/18 14:30 Leg Left Wound Culture - Final No Growth Day 4 09/25/18 14:30 Leg Left Gram Stain - Final 09/25/18 14:30 Leg Left Wound Culture - Final No Growth Day 4 09/21/18 06:00 Urine Urine Culture - Final No Growth (<1,000 CFU/mL) Assess/Plan/Problems-Billing Assessment: This is a 47 yo woman with h/o polysubstance abuse, anxiety/depression, now on Suboxone and Clonazepam presented with left leg compartment syndrome after syncope and collapse on 09/18 potential overdose. - Patient Problems (1) Compartment syndrome Current Visit: Yes Status: Acute Priority: High Code(s): T79.A0XA - COMPARTMENT SYNDROME, UNSPECIFIED, INITIAL ENCOUNTER SNOMED Code(s): 978917969 Comment: - Appears initiated by trauma during syncope/overdose, patient has no recollection of events - s/p fasciotomy and debridement 09/20/18, 09/21/18, 09/25/18 and 09/28/18 - Will need continued surgical debridements as per ortho - Defer to orthopedics for continued management, concern for preservation of limb and avoiding amputation - Pain control (2) Acute tubular necrosis Current Visit: Yes Status: Acute Priority: High Code(s): N17.0 - ACUTE KIDNEY FAILURE WITH TUBULAR NECROSIS SNOMED Code(s): 12980278 Comment: -Acute renal failure due to rhabdo now slowly resolving -will repeat creatinine in AM -Euvolemic -Nephrology consult appreciated, will stop IVF, give lasix prn (3) Anemia Current Visit: Yes Status: Acute Priority: Medium Code(s): D64.9 - ANEMIA , UNSPECIFIED SNOMED Code(s): 378754474 Comment: - Suspected etiology of anemia multifactoral. - Renal disease, infection, and surgery contributing - Cont monitoring H&H, transfuse if HGB <7 (4) DVT prophylaxis Current Visit: Yes Status: Acute Priority: Low Code(s): OGV0113 - SNOMED Code(s): 960329078 Comment: - heparin SQ Status and Disposition: Inpatient, dispo TBD, status: guarded
[2018-09-30] MEDS: Venlafaxine EXT RELEASE CAP* 75 MG PO SCH (10:10)
[2018-09-30] MEDS: Cetirizine* 10 MG TAB PO SCH (10:10)
[2018-09-30] MEDS: Pantoprazole TAB * 40 MG TAB PO SCH (10:10)
[2018-09-30] MEDS: Docusate CAP* 100 MG PO SCH ×2 (10:10→21:10)
[2018-09-30] MEDS: Folic Acid TAB* 1 MG PO SCH (10:10)
[2018-09-30] MEDS: Multivitamins/Minerals TAB PO SCH (10:10)
[2018-09-30] MEDS: Montelukast Sodium TAB* 10 MG PO SCH (10:10)
[2018-09-30] MEDS: Thiamine TAB* 100 MG TAB PO SCH (10:11)
--- NOTE | 2018-09-30 11:14 | PN ---
Progress Note - Progress Note Date of Service: 09/30/18 SOAP: Subjective: [] Objective: [] Assessment: [] Plan: []
[2018-10-01] MEDS: Morphine VIAL* 4 MG/ML VIAL (1 ml vial) IV PRN ×8 (05:23→21:14)
[2018-10-01] MEDS: Heparin VIAL(*) 5000 UNITS/ML VIAL (FIVE THOUSAND) SUBCUT SCH ×3 (05:24→21:16)
[2018-10-01] MEDS: oxyCODONE/Acetamin 5/325 MG* TAB PO PRN ×5 (05:24→23:12)
[2018-10-01 05:44] LABS: Hematocrit 22 % (35-47); Hemoglobin 7.4 g/dl (12.0-16.0); Mean Corpuscular HGB Conc 33 g/dl (31-36); Mean Corpuscular Hemoglobin 29 pg (27-31); Mean Corpuscular Volume 88 fL (80-97); Platelet Count 428 10^3/ul (150-450); Red Blood Count 2.53 10^6/ul (4.00-5.40); Red Cell Distribution Width 15 % (10.5-15); White Blood Count 11.4 10^3/ul (3.5-10.8)
[2018-10-01 06:03] LABS: BUN/Creatinine Ratio 9.8 (8-20); Calcium 8.1 mg/dL (8.6-10.3); EGFR African American 17.9 (>60); EGFR Non-African American 14.8 (>60); Potassium 3.7 mmol/L (3.5-5.0)
[2018-10-01 06:04] LABS: Vancomycin Random 14.3 mcg/mL
[2018-10-01 06:08] LABS: ABS Basophils 0.1 10^3/ul (0-0.2); ABS Eosinophils 0.2 10^3/ul (0-0.6); ABS Lymphocytes 2.2 10^3/ul (1.0-4.8); ABS Monocytes 1.2 10^3/ul (0-0.8); ABS Neutrophils 7.8 10^3/ul (1.5-7.7); ABS Nucleated RBC 0 10^3/ul; Eosinophil % 2.1 %; Lymphocyte % 19.1 %; Nucleated Red Blood Cells % 0
[2018-10-01] MEDS: oxyCODONE TAB* 5 MG TAB PO PRN ×4 (07:21→20:01)
[2018-10-01] MEDS ORDERED: Vancomycin(*) 1,000 MG in NS 0.9% 250 ML* 250 ML IVPB ONE (08:30)
[2018-10-01] MEDS: Docusate CAP* 100 MG PO SCH ×2 (09:28→20:01)
[2018-10-01] MEDS: Thiamine TAB* 100 MG TAB PO SCH (09:28)
[2018-10-01] MEDS: Folic Acid TAB* 1 MG PO SCH (09:28)
[2018-10-01] MEDS: Montelukast Sodium TAB* 10 MG PO SCH (09:28)
[2018-10-01] MEDS: Pantoprazole TAB * 40 MG TAB PO SCH (09:29)
[2018-10-01] MEDS: Multivitamins/Minerals TAB PO SCH (09:29)
[2018-10-01] MEDS: Cetirizine* 10 MG TAB PO SCH (09:29)
[2018-10-01] MEDS: Venlafaxine EXT RELEASE CAP* 75 MG PO SCH (09:29)
--- NOTE | 2018-10-01 09:34 | PN ---
Progress Note - Progress Note Date of Service: 10/01/18 SOAP: Subjective: [Pt reports burning sensation L lower leg. Still unable to wiggle toes. Denies CP, SOB, nausea. Aware that she will return to OR tomorrow.] Objective: [A and O x 3, NAD Dressing L leg C/D/I. Splint in place. Wound vac working. Proximal drain with moderate amount bloody/SS drainage Toes remain insensate Vital Signs: Temp Pulse Resp BP Pulse Ox 98.0 F 82 18 113/71 94 10/01/18 07:29 10/01/18 07:29 10/01/18 09:29 10/01/18 07:29 10/01/18 07:29 Laboratory Results - last 24 hr 10/01/18 10/01/18 05:34 05:34 WBC 11.4 H RBC 2.53 L Hgb 7.4 L Hct 22 L MCV 88 MCH 29 MCHC 33 RDW 15 Plt Count 428 MPV 8.0 Neut % (Auto) 68.1 Lymph % (Auto) 19.1 [place] % (Auto) 10.1 Eos % (Auto) 2.1 Baso % (Auto) 0.6 Absolute Neuts (auto) 7.8 H Absolute Lymphs (auto) 2.2 Absolute Monos (auto) 1.2 H Absolute Eos (auto) 0.2 Absolute Basos (auto) 0.1 Absolute Nucleated RBC 0 Nucleated RBC % 0 Sodium 140 Potassium 3.7 Chloride 105 Carbon Dioxide 30 Anion Gap 5 BUN 33 H Creatinine 3.37 H Est GFR ( Amer) 17.9 Est GFR (Non-Af Amer) 14.8 BUN/Creatinine Ratio 9.8 Glucose 99 Calcium 8.1 L Total Creatine Kinase 575 H Random Vancomycin 14.3 ] Assessment: [s/p repeat debridement necrotic muscle LLE x 3, medial wound closed 09/28/18, lateral wound with wound vac.] Plan: [Con't abx per Dr. Shelby Elevation LLE on pillow while in bed, splint to prevent equinus contracture Plan return to OR with Dr. Wen tomorrow NPO after midnight]
[2018-10-01] MEDS ORDERED: Senna TAB PO PRN (10:12)
--- NOTE | 2018-10-01 10:14 | PN ---
Subjective Date of Service: 10/01/18 Interval History: Patient has new tingling/burning in both lower extremities. This is uncomfortable, not really painful. Cannot wiggle toes on LT foot. Aware she is going back to OR tomorrow. Has not moved bowels in 2 days, on colace Family History: Unchanged from Admission Social History: Unchanged from Admission Past Medical History: Unchanged from Admission Objective Active Medications: Acetaminophen (Tylenol Tab*) 650 mg PO Q6H PRN PRN Reason: PAIN OR TEMPERATURE Last Admin: 09/29/18 12:44 Dose: 650 mg Cetirizine HCl (Zyrtec*) 10 mg PO DAILY [facility] Last Admin: 10/01/18 09:29 Dose: 10 mg Diphenhydramine HCl (Benadryl Iv*) 25 mg IV Q6H PRN PRN Reason: itching Diphenhydramine HCl (Benadryl Po*) 25 mg PO Q4H PRN PRN Reason: ITCHING Last Admin: 09/20/18 19:55 Dose: 25 mg Docusate Sodium (Colace Cap*) 100 mg PO BID [facility] Last Admin: 10/01/18 09:28 Dose: 100 mg Folic Acid (Folvite Tab*) 1 mg PO DAILY [facility] Last Admin: 10/01/18 09:28 Dose: 1 mg Heparin Sodium (Porcine) (Heparin Vial(*)) 5,000 units SUBCUT Q8HR [facility] Last Admin: 10/01/18 05:24 Dose: 5,000 units Lactated Ringer's (Lactated Ringers 1000 Ml Bag*) 1,000 mls @ 125 mls/hr IV PER RATE [facility] Lidocaine (Xylocaine 2% Viscous*) 15 ml SWISH SPIT TID PRN PRN Reason: PAIN Last Admin: 09/24/18 08:29 Dose: 15 ml Lorazepam (Ativan Tab(*)) 1 mg PO Q6H PRN PRN Reason: ANXIETY Last Admin: 09/27/18 20:13 Dose: 1 mg Montelukast Sodium (Singulair Tab*) 10 mg PO DAILY [facility] Last Admin: 10/01/18 09:28 Dose: 10 mg Morphine Sulfate (Morphine Vial*) 2 mg IV Q2H PRN PRN Reason: PAIN Last Admin: 10/01/18 09:29 Dose: 2 mg Multivitamins/Minerals (Theragran/Minerals Tab*) 1 tab PO DAILY [facility] Last Admin: 10/01/18 09:29 Dose: 1 tab Ondansetron HCl (Zofran Inj*) 4 mg IV Q6H PRN PRN Reason: nausea Oxycodone HCl (Roxycodone Tab*) 10 mg PO Q4H PRN PRN Reason: PAIN - SEVERE Last Admin: 10/01/18 07:21 Dose: 10 mg Oxycodone/Acetaminophen (Percocet 5/325 Tab*) 1 tab PO Q4H PRN PRN Reason: PAIN Oxycodone/Acetaminophen (Percocet 5/325 Tab*) 2 tab PO Q4H PRN PRN Reason: PAIN Last Admin: 10/01/18 09:29 Dose: 2 tab Pantoprazole Sodium (Protonix Tab *) 40 mg PO DAILY [facility] Last Admin: 10/01/18 09:29 Dose: 40 mg Pharmacy Consult (Vancomycin Per Pharmacy*) 1 note FOLLOW UP .VANC PER PHARMACY [facility] Thiamine HCl (Vitamin B-1 Tab*) 100 mg PO DAILY [facility] Last Admin: 10/01/18 09:28 Dose: 100 mg Venlafaxine HCl (Effexor Xr Cap*) 150 mg PO DAILY [facility] Last Admin: 10/01/18 09:29 Dose: 150 mg Vital Signs - 8 hr 10/01/18 10/01/18 10/01/18 03:47 05:23 05:24 Temperature 36.8 C Pulse Rate 81 Respiratory 20 18 18 Rate Blood Pressure 125/67 (mmHg) O2 Sat by Pulse 94 Oximetry 10/01/18 10/01/18 10/01/18 07:13 07:20 07:21 Temperature Pulse Rate Respiratory 16 18 18 Rate Blood Pressure (mmHg) O2 Sat by Pulse Oximetry 10/01/18 10/01/18 10/01/18 07:26 07:29 08:47 Temperature 36.7 C Pulse Rate 82 Respiratory 18 16 18 Rate Blood Pressure 113/71 (mmHg) O2 Sat by Pulse 94 94 Oximetry 10/01/18 10/01/18 09:29 09:50 Temperature Pulse Rate Respiratory 18 18 Rate Blood Pressure (mmHg) O2 Sat by Pulse Oximetry Oxygen Devices in Use Now: None Appearance: alert, no distress Neck: NL Appearance and Movements; NL JVP Respiratory: Symmetrical Chest Expansion and Respiratory Effort, Clear to Auscultation Cardiovascular: NL Sounds; No Murmurs; No JVD, RRR Abdominal: NL Sounds; No Tenderness; No Distention, No Hepatosplenomegaly Skin: - - LT foot and calf in bandage/brace, wound vacs in place, good cap refill LT toes Neurological: Alert and Oriented x 3, - - Cannot wiggle LT toes Lines/Tubes/Other Access: Clean, Dry and Intact PICC Line Result Diagrams: 10/01/18 05:34 10/01/18 05:34 Additional Lab and Data: Laboratory Tests 09/30/18 09/30/18 10/01/18 05:49 05:49 05:34 WBC 14.5 H 11.4 H Hgb 7.5 L 7.4 L Hct 22 L 22 L Total Creatine Kinase 689 H Random Vancomycin 10/01/18 05:34 WBC Hgb Hct Total Creatine Kinase 575 H Random Vancomycin 14.3 Microbiology and Other Data: Assess/Plan/Problems-Billing Assessment: This is a 47 yo woman with h/o polysubstance abuse, anxiety/depression, now on Suboxone and Clonazepam presented with left leg compartment syndrome after syncope and collapse on 09/18 potential overdose. - Patient Problems (1) Compartment syndrome Current Visit: Yes Status: Acute Priority: High Code(s): T79.A0XA - COMPARTMENT SYNDROME, UNSPECIFIED, INITIAL ENCOUNTER SNOMED Code(s): 873591326 Comment: - Appears initiated by trauma during syncope/overdose, patient has poor recollection of events - s/p fasciotomy and debridement 09/20/18, 09/21/18, 09/25/18 and 09/28/18 - Will need continued surgical debridements as per ortho - Defer to orthopedics for continued management, preservation of limb and hopefully avoiding amputation - Pain control adequate (2) Acute tubular necrosis Current Visit: Yes Status: Acute Priority: High Code(s): N17.0 - ACUTE KIDNEY FAILURE WITH TUBULAR NECROSIS SNOMED Code(s): 25162536 Comment: -Acute renal failure due to rhabdo now slowly resolving -Euvolemic -Nephrology consult appreciated, off IVF, give lasix prn (3) Anemia Current Visit: Yes Status: Acute Priority: Medium Code(s): D64.9 - ANEMIA , UNSPECIFIED SNOMED Code(s): 046175227 Comment: - Suspected etiology of anemia multifactoral. - Renal disease, infection, and surgery contributing - Cont monitoring H&H, transfuse if HGB <7 (4) DVT prophylaxis Current Visit: Yes Status: Acute Priority: Low Code(s): [id number] - SNOMED Code(s): 371558776 Comment: - heparin SQ - SCDs on RLE Status and Disposition: Inpatient, dispo TBD, status: guarded
[2018-10-02] MEDS: Morphine VIAL* 4 MG/ML VIAL (1 ml vial) IV PRN ×5 (00:56→17:37)
[2018-10-02] MEDS ORDERED: Vancomycin Random Level* NOTE FOLLOW UP ONE (05:30)
[2018-10-02] MEDS: Heparin VIAL(*) 5000 UNITS/ML VIAL (FIVE THOUSAND) SUBCUT SCH ×3 (05:54→21:57)
[2018-10-02] MEDS: Lactated Ringers 1000 ML Bag* 1,000 ML IV SCH ×2 (05:57→22:25)
[2018-10-02 06:19] LABS: EGFR African American 18.9 (>60); EGFR Non-African American 15.6 (>60)
[2018-10-02 06:20] LABS: Vancomycin Random 16.6 mcg/mL
[2018-10-02] MEDS: Montelukast Sodium TAB* 10 MG PO SCH (08:18)
[2018-10-02] MEDS: Cetirizine* 10 MG TAB PO SCH (08:18)
[2018-10-02] MEDS: Folic Acid TAB* 1 MG PO SCH (08:18)
[2018-10-02] MEDS: Docusate CAP* 100 MG PO SCH ×2 (08:18→21:02)
[2018-10-02] MEDS: Thiamine TAB* 100 MG TAB PO SCH (08:19)
[2018-10-02] MEDS: Venlafaxine EXT RELEASE CAP* 75 MG PO SCH (08:19)
[2018-10-02] MEDS: Pantoprazole TAB * 40 MG TAB PO SCH (08:19)
[2018-10-02] MEDS: Multivitamins/Minerals TAB PO SCH (08:19)
[2018-10-02] MEDS ORDERED: Vancomycin(*) 1,000 MG in NS 0.9% 250 ML* 250 ML IVPB ONE (09:00)
[2018-10-02 09:53] LABS: Hematocrit 23 % (35-47); Hemoglobin 7.6 g/dl (12.0-16.0); Mean Corpuscular HGB Conc 34 g/dl (31-36); Mean Corpuscular Hemoglobin 30 pg (27-31); Mean Corpuscular Volume 89 fL (80-97); Mean Platelet Volume 7.8 fL (7.4-10.4); Platelet Count 503 10^3/ul (150-450); Red Blood Count 2.53 10^6/ul (4.00-5.40); Red Cell Distribution Width 15 % (10.5-15)
[2018-10-02] MEDS: oxyCODONE/Acetamin 5/325 MG* TAB PO PRN ×2 (11:47→21:02)
[2018-10-02] MEDS ORDERED: Sodium Citrate/Citric Acid* 15 ML UDC PO ONE (14:32)
[2018-10-02] MEDS ORDERED: Naloxone* 0.4 MG/ML 1 ML VIAL IV PRN (14:33)
[2018-10-02] MEDS ORDERED: Sodium Citrate/Citric Acid* 15 ML UDC ONE (14:34)
[2018-10-02] MEDS ORDERED: Lidocaine 2% PF* 10 ML AMP ONE (14:36)
[2018-10-02] MEDS ORDERED: Bupivacaine 0.5%* 50 ML VIAL ONE (14:36)
[2018-10-02] MEDS ORDERED: Propofol* 10 MG/ML 20 ML BTL ONE ×2 (14:49→15:25)
[2018-10-02] MEDS ORDERED: fentaNYL* 50 MCG/ML 2 ML VIAL (100 MCG VIAL) ONE ×4 (14:49→17:11)
[2018-10-02] MEDS ORDERED: Lidocaine 2% PF * 5 ML VIAL ONE (14:49)
[2018-10-02] MEDS: fentaNYL* 50 MCG/ML 2 ML VIAL (100 MCG VIAL) IV PRN ×5 (15:40→17:14)
[2018-10-02] MEDS ORDERED: oxyCODONE TAB* 5 MG TAB ONE (15:42)
[2018-10-02] MEDS: oxyCODONE TAB* 5 MG TAB PO PRN ×2 (15:44→23:14)
--- NOTE | 2018-10-02 19:13 | PN ---
Subjective Date of Service: 10/02/18 Interval History: Patient back from OR from further debridement with Dr. Wen 2 hrs ago. Reports terrible pain, cannot concentrate. 06/21. Fentanyl helped in PACU. Family History: Unchanged from Admission Social History: Unchanged from Admission Past Medical History: Unchanged from Admission Objective Active Medications: Acetaminophen (Tylenol Tab*) 650 mg PO Q6H PRN PRN Reason: PAIN OR TEMPERATURE Last Admin: 09/29/18 12:44 Dose: 650 mg Cetirizine HCl (Zyrtec*) 10 mg PO DAILY [facility] Last Admin: 10/02/18 08:18 Dose: Not Given Diphenhydramine HCl (Benadryl Iv*) 25 mg IV Q6H PRN PRN Reason: itching Diphenhydramine HCl (Benadryl Po*) 25 mg PO Q4H PRN PRN Reason: ITCHING Last Admin: 09/20/18 19:55 Dose: 25 mg Docusate Sodium (Colace Cap*) 100 mg PO BID [facility] Last Admin: 10/02/18 08:18 Dose: Not Given Folic Acid (Folvite Tab*) 1 mg PO DAILY [facility] Last Admin: 10/02/18 08:18 Dose: Not Given Heparin Sodium (Porcine) (Heparin Vial(*)) 5,000 units SUBCUT Q8HR [facility] Last Admin: 10/02/18 13:55 Dose: Not Given Lactated Ringer's (Lactated Ringers 1000 Ml Bag*) 1,000 mls @ 125 mls/hr IV PER RATE [facility] Last Admin: 10/02/18 05:57 Dose: 125 mls/hr Lidocaine (Xylocaine 2% Viscous*) 15 ml SWISH SPIT TID PRN PRN Reason: PAIN Last Admin: 09/24/18 08:29 Dose: 15 ml Montelukast Sodium (Singulair Tab*) 10 mg PO DAILY [facility] Last Admin: 10/02/18 08:18 Dose: Not Given Multivitamins/Minerals (Theragran/Minerals Tab*) 1 tab PO DAILY [facility] Last Admin: 10/02/18 08:19 Dose: Not Given Ondansetron HCl (Zofran Inj*) 4 mg IV Q6H PRN PRN Reason: nausea Pantoprazole Sodium (Protonix Tab *) 40 mg PO DAILY [facility] Last Admin: 10/02/18 08:19 Dose: Not Given Pharmacy Consult (Vancomycin Per Pharmacy*) 1 note FOLLOW UP .VANC PER PHARMACY [facility] Senna (Senokot Tab*) 1 tab PO BEDTIME PRN PRN Reason: CONSTIPATION Thiamine HCl (Vitamin B-1 Tab*) 100 mg PO DAILY [facility] Last Admin: 10/02/18 08:19 Dose: Not Given Venlafaxine HCl (Effexor Xr Cap*) 150 mg PO DAILY [facility] Last Admin: 10/02/18 08:19 Dose: Not Given Vital Signs - 8 hr 10/02/18 10/02/18 10/02/18 16:48 17:00 17:01 Temperature 37.0 C Pulse Rate 84 88 Respiratory Rate Blood Pressure 148/92 141/96 (mmHg) O2 Sat by Pulse 96 97 Oximetry 10/02/18 10/02/18 10/02/18 17:14 17:16 17:28 Temperature 37.4 C Pulse Rate 85 99 Respiratory 166 18 Rate Blood Pressure 151/100 146/108 (mmHg) O2 Sat by Pulse 99 99 Oximetry 10/02/18 10/02/18 10/02/18 17:30 17:37 18:00 Temperature 37.4 C Pulse Rate 99 Respiratory 16 18 18 Rate Blood Pressure 146/108 (mmHg) O2 Sat by Pulse 98 99 Oximetry Oxygen Devices in Use Now: None Appearance: alert, mild distress Ears/Nose/Mouth/Throat: Clear Oropharnyx Neck: NL Appearance and Movements; NL JVP Respiratory: Clear to Auscultation Abdominal: NL Sounds; No Tenderness; No Distention Extremities: No Edema Skin: - - LT foot in partial cast/bandage w/ active drains Neurological: Alert and Oriented x 3 Lines/Tubes/Other Access: Clean, Dry and Intact Peripheral IV Nutrition: Taking PO's Result Diagrams: 10/02/18 09:47 10/02/18 05:34 Assess/Plan/Problems-Billing Assessment: This is a 47 yo woman with h/o polysubstance abuse, anxiety/depression, now on Suboxone and Clonazepam presented with left leg compartment syndrome after syncope and collapse on 09/18 potential overdose. - Patient Problems (1) Compartment syndrome Current Visit: Yes Status: Acute Priority: High Code(s): T79.A0XA - COMPARTMENT SYNDROME, UNSPECIFIED, INITIAL ENCOUNTER SNOMED Code(s): 851617499 Comment: - Appears initiated by trauma during syncope/overdose, patient has poor recollection of events - s/p fasciotomy and debridement 09/20/18, 09/21/18, 09/25/18, 09/28/18, and 10/02/18 - Will need continued surgical debridements as per ortho - Defer to orthopedics for continued management, preservation of limb and hopefully avoiding amputation - Pain control inadequate, adding dilaudid prn (2) Acute tubular necrosis Current Visit: Yes Status: Acute Priority: High Code(s): N17.0 - ACUTE KIDNEY FAILURE WITH TUBULAR NECROSIS SNOMED Code(s): 54393174 Comment: -Acute renal failure due to rhabdo now slowly resolving -Euvolemic (3) Anemia Current Visit: Yes Status: Acute Priority: Medium Code(s): D64.9 - ANEMIA , UNSPECIFIED SNOMED Code(s): 667021531 Comment: - Suspected etiology of anemia multifactoral. - Renal disease, infection, and surgery contributing - Cont monitoring H&H, transfuse if HGB <7 (4) DVT prophylaxis Current Visit: Yes Status: Acute Priority: Low Code(s): [id number] - SNOMED Code(s): 852372375 Comment: - heparin SQ - SCDs on RLE Status and Disposition: Inpatient, dispo TBD, status: guarded
[2018-10-02] MEDS: HYDROmorphone INJ1* 1 MG/ML SYRINGE IV SLOW PU PRN ×2 (19:34→23:48)
[2018-10-02] MEDS: LORazepam TAB(*) 1 MG PO PRN (19:34)
--- NOTE | 2018-10-02 20:35 | OP ---
DATE OF OPERATION: 10/02/18 - ROOM #[id number] DATE OF : 74 SURGEON: Jorge Luis Wen MD INTERNET MARKETING ANALYST: Brittany Hardin PA-C PRE-OP DIAGNOSIS: Extensive compartment syndrome, left calf, with some ischemic muscles. POST-OP DIAGNOSIS: Extensive compartment syndrome, left calf, with a small amount of ischemic muscle in the anterior compartment which was primary. OPERATIVE PROCEDURE: Exploration anterior compartment, left leg; VAC change; irrigation and debridement of muscle. DESCRIPTION OF PROCEDURE: The patient was taken to the operating room where we removed the VAC dressing from the lateral side of the calf. There appeared to be viable muscle in the peroneal compartment, but the anterior compartment had been mostly debrided previously. A small amount of muscle was removed mostly proximally. Local hemostasis was obtained with a 3-0 Vicryl suture ligature. We irrigated thoroughly with saline. Cultures were sent as well as some of the muscle for pathology. We placed a new VAC dressing along the lateral calf, leaving perhaps a 2.5 cm gap in the skin and below. A compression dressing and a plaster splint was applied. [id number]/[facility] #: [id number] [facility]
[2018-10-03] MEDS: oxyCODONE/Acetamin 5/325 MG* TAB PO PRN ×5 (01:27→23:18)
[2018-10-03] MEDS: HYDROmorphone INJ1* 1 MG/ML SYRINGE IV SLOW PU PRN ×5 (04:22→20:56)
[2018-10-03] MEDS ORDERED: Vancomycin Random Level* NOTE FOLLOW UP ONE (06:00)
[2018-10-03] MEDS: Lactated Ringers 1000 ML Bag* 1,000 ML IV SCH (06:26)
[2018-10-03] MEDS: oxyCODONE TAB* 5 MG TAB PO PRN ×4 (06:26→20:55)
[2018-10-03] MEDS: Heparin VIAL(*) 5000 UNITS/ML VIAL (FIVE THOUSAND) SUBCUT SCH (06:26)
[2018-10-03 07:07] LABS: EGFR African American 24.5 (>60); EGFR Non-African American 20.3 (>60)
[2018-10-03 07:15] LABS: Vancomycin Random 15.8 mcg/mL
--- NOTE | 2018-10-03 09:04 | PN ---
Progress Note - Progress Note Date of Service: 10/03/18 SOAP: Subjective: [] Patient was seen and examined at bedside. She has no complaints today. Denies pain of LLE, CP, SOB, dizziness, nausea. Objective: [] General: NAD, carrying on appropriate conversation LLE: Left lower leg dressing CDI, splint in place, wrapped to toes. Wound vac in place with good suction maintained. Exposed toes are warm with capillary refill less than two seconds. Lacks sensation of exposed toes and she is unable to wiggle the MTPs. There is no erythema proximal or distal to the dressing. Right calf is supple and nontender without erythema, edema or palpable cords. Assessment: []Compartment syndrome left leg left foot without sensation and without active motor function sp compartment fasciotomy and extensive serial debridements of necrotic tissue left, POD1 most recent debridement IVDU Rhabdomyolysis Plan: []Splint keeping L ankle at 90 degrees no need for podus boot while this is present PT- non weight bearing LLE, OOB Vanco dosed per pharmacy. Needs to stay on antibiotics due to large open wounds making her high risk for infection. h&h ordered for today Vital Signs Temp 98.7 F 10/03/18 04:18 Pulse 98 10/03/18 04:18 Resp 18 10/03/18 08:27 BP 136/75 10/03/18 04:18 Pulse Ox 95 10/03/18 04:18 Intake & Output 10/02/18 10/03/18 10/03/18 18:59 06:59 18:59 Intake Total 400 1600 Output Total 1400 2250 Balance -1000 -650 Weight 196 lb 9 oz Intake: IV Fluids 400 980 LR 200 980 NS 200 Oral 0 620 Output: Urine 1400 2250 Other: # Voids 1 Laboratory Last Values WBC 10.0 10^3/ul (3.5-10.8) 10/02/18 09:47 RBC 2.53 10^6/ul (4.00-5.40) L 10/02/18 09:47 Hgb 7.6 g/dl (12.0-16.0) L 10/02/18 09:47 Hct 23 % (35-47) L 10/02/18 09:47 MCV 89 fL (80-97) 10/02/18 09:47 MCH 30 pg (27-31) 10/02/18 09:47 MCHC 34 g/dl (31-36) 10/02/18 09:47 RDW 15 % (10.5-15) 10/02/18 09:47 Plt Count 503 10^3/ul (150-450) H D 10/02/18 09:47 MPV 7.8 fL (7.4-10.4) 10/02/18 09:47 Neut % (Auto) 68.1 % 10/01/18 05:34 Lymph % (Auto) 19.1 % 10/01/18 05:34 [place] % (Auto) 10.1 % 10/01/18 05:34 Eos % (Auto) 2.1 % 10/01/18 05:34 Baso % (Auto) 0.6 % 10/01/18 05:34 Absolute Neuts (auto) 7.8 10^3/ul (1.5-7.7) H 10/01/18 05:34 Absolute Lymphs (auto) 2.2 10^3/ul (1.0-4.8) 10/01/18 05:34 Absolute Monos (auto) 1.2 10^3/ul (0-0.8) H 10/01/18 05:34 Absolute Eos (auto) 0.2 10^3/ul (0-0.6) 10/01/18 05:34 Absolute Basos (auto) 0.1 10^3/ul (0-0.2) 10/01/18 05:34 Absolute Nucleated RBC 0 10^3/ul 10/01/18 05:34 Nucleated RBC % 0 10/01/18 05:34 Haptoglobin 138 mg/dL (30 - 200) 09/28/18 13:39 INR (Anticoag Therapy) 1.19 (0.77-1.02) H 09/22/18 05:51 APTT 29.5 seconds (26.0-36.3) 09/22/18 05:51 Sodium 140 mmol/L (135-145) 10/01/18 05:34 Potassium 3.7 mmol/L (3.5-5.0) 10/01/18 05:34 Chloride 105 mmol/L (101-111) 10/01/18 05:34 Carbon Dioxide 30 mmol/L (22-32) 10/01/18 05:34 Anion Gap 5 mmol/L (2-11) 10/01/18 05:34 BUN 23 mg/dL (6-24) 10/03/18 06:23 Creatinine 2.55 mg/dL (0.51-0.95) H 10/03/18 06:23 Est GFR ( Amer) 24.5 (>60) 10/03/18 06:23 Est GFR (Non-Af Amer) 20.3 (>60) 10/03/18 06:23 BUN/Creatinine Ratio 9.8 (8-20) 10/01/18 05:34 Glucose 99 mg/dL (70-100) 10/01/18 05:34 Lactic Acid 2.0 mmol/L (0.5-2.0) 09/19/18 21:56 Calcium 8.1 mg/dL (8.6-10.3) L 10/01/18 05:34 Phosphorus 5.6 mg/dL (2.5-5.0) H 09/25/18 06:06 Magnesium 2.1 mg/dL (1.9-2.7) 09/30/18 05:49 Iron 23 ug/dL (50-212) L 09/28/18 13:39 TIBC 286 mcg/dL (250-450) 09/28/18 13:39 % Saturation 8 % (15-55) L 09/28/18 13:39 Unsat Iron Binding < 271 ug/dL 09/28/18 13:39 Transferrin 204 mg/dL (203-362) 09/28/18 13:39 Erythropoietin 12.6 mIU/mL (2.6 - 18.5) 09/28/18 13:39 Ferritin 126.9 ng/mL (11-307) 09/28/18 13:39 Total Bilirubin 0.40 mg/dL (0.2-1.0) 09/28/18 06:15 Direct Bilirubin 0.10 mg/dL (0.03-0.18) 09/28/18 06:15 Indirect Bilirubin 0.3 mg/dL (0.3-1.0) 09/28/18 06:15 AST 88 U/L (13-39) H 09/28/18 06:15 ALT 8 U/L (7-52) 09/28/18 06:15 Alkaline Phosphatase 191 U/L (34-104) H 09/28/18 06:15 Lactate Dehydrogenase 524 U/L (140-271) H 09/28/18 13:39 Total Creatine Kinase 575 U/L (10-223) H 10/01/18 05:34 C-Reactive Protein 119.03 mg/L (<8.01) H 09/19/18 21:56 Total Protein 5.0 g/dL (6.4-8.9) L 09/28/18 06:15 Albumin 2.4 g/dL (3.2-5.2) L 09/28/18 06:15 Globulin 2.6 g/dL (2-4) 09/28/18 06:15 Albumin/Globulin Ratio 0.9 (1-3) L 09/28/18 06:15 Vitamin B12 958 pg/mL (180-914) H 09/28/18 13:39 Folate 14.70 ng/mL (>3.99) 09/28/18 13:39 Beta HCG, Quant < 0.60 mIU/mL 09/19/18 21:56 Urine Color Yellow 09/26/18 02:43 Urine Appearance Clear 09/26/18 02:43 Urine pH 6.0 (5-9) 09/26/18 02:43 Ur Specific [place] 1.012 (1.010-1.030) 09/26/18 02:43 Urine Protein Negative (Negative) 09/26/18 02:43 Urine Ketones Negative (Negative) 09/26/18 02:43 Urine Blood 3+ (Negative) A 09/26/18 02:43 Urine Nitrate Negative (Negative) 09/26/18 02:43 Urine Bilirubin Negative (Negative) 09/26/18 02:43 Urine Urobilinogen Negative (Negative) 09/26/18 02:43 Ur Leukocyte Esterase Negative (Negative) 09/26/18 02:43 Urine WBC (Auto) 1+(6-10/hpf) (Absent) A 09/26/18 02:43 Urine RBC (Auto) 2+(6-10/hpf) (Absent) A 09/26/18 02:43 Ur Squamous Epith Cells Present (Absent) A 09/26/18 02:43 Urine Bacteria Absent (Absent) 09/26/18 02:43 Ur Creatinine Concen 96.33 mg/dL 09/26/18 02:43 U Sodium Concentration 42 mmol/L 09/26/18 02:43 Urine Glucose Negative (Negative) 09/26/18 02:43 Vancomycin Trough 15.6 mcg/mL 09/25/18 06:06 Random Vancomycin 15.8 mcg/mL 10/03/18 06:23 Hepatitis A IgM Ab Nonreactive (Nonreactive) 09/20/18 15:10 Hep Bs Antigen Nonreactive (Nonreactive) 09/20/18 15:10 Hep B Core IgM Ab Nonreactive (Nonreactive) 09/20/18 15:10 Hepatitis C Antibody High reactive (Nonreactive) A 09/20/18 15:10 Hepatitis C Ab Index > 11.0 Index 09/20/18 15:10 HIV 1&2 Antibody Nonreactive (Nonreactive) 10/01/18 05:34 Blood Type B Positive 09/27/18 14:37 Antibody Screen Negative 09/27/18 14:37 Crossmatch See Detail 09/27/18 14:37
[2018-10-03] MEDS: Venlafaxine EXT RELEASE CAP* 75 MG PO SCH (09:31)
[2018-10-03] MEDS: Multivitamins/Minerals TAB PO SCH (09:31)
[2018-10-03] MEDS: Thiamine TAB* 100 MG TAB PO SCH (09:31)
[2018-10-03] MEDS: Folic Acid TAB* 1 MG PO SCH (09:31)
[2018-10-03] MEDS: Cetirizine* 10 MG TAB PO SCH (09:31)
[2018-10-03] MEDS: Docusate CAP* 100 MG PO SCH ×2 (09:31→20:55)
[2018-10-03] MEDS: Montelukast Sodium TAB* 10 MG PO SCH (09:31)
[2018-10-03] MEDS: Pantoprazole TAB * 40 MG TAB PO SCH (09:31)
[2018-10-03 09:46] LABS: Hematocrit 21 % (35-47); Hemoglobin 6.8 g/dl (12.0-16.0)
[2018-10-03] MEDS ORDERED: Heparin VIAL(*) 5000 UNITS/ML VIAL (FIVE THOUSAND) SUBCUT SCH (09:56)
[2018-10-03] MEDS ORDERED: Vancomycin(*) 1,000 MG in NS 0.9% 250 ML* 250 ML IVPB ONE (12:00)
--- NOTE | 2018-10-03 17:34 | PN ---
Subjective Date of Service: 10/03/18 Interval History: Patient's pain better controlled. Can wiggle toes LLE. Had PICC line placed today RUE, had leaking midline LUE. Family History: Unchanged from Admission Social History: Unchanged from Admission Past Medical History: Unchanged from Admission Objective Active Medications: Acetaminophen (Tylenol Tab*) 650 mg PO Q6H PRN PRN Reason: PAIN OR TEMPERATURE Last Admin: 09/29/18 12:44 Dose: 650 mg Cetirizine HCl (Zyrtec*) 10 mg PO DAILY ON LICENSE OF [facility] Last Admin: 10/03/18 09:31 Dose: 10 mg Diphenhydramine HCl (Benadryl Iv*) 25 mg IV Q6H PRN PRN Reason: itching Diphenhydramine HCl (Benadryl Po*) 25 mg PO Q4H PRN PRN Reason: ITCHING Last Admin: 09/20/18 19:55 Dose: 25 mg Docusate Sodium (Colace Cap*) 100 mg PO BID ON LICENSE OF [facility] Last Admin: 10/03/18 09:31 Dose: 100 mg Folic Acid (Folvite Tab*) 1 mg PO DAILY ON LICENSE OF [facility] Last Admin: 10/03/18 09:31 Dose: 1 mg Heparin Sodium (Porcine) (Heparin Flush Picc/Ml/Cvc(*)) 1 - 3 ml FLUSH 0600, 1800 CONY; Protocol Last Admin: 10/03/18 15:04 Dose: 1 ml Heparin Sodium (Porcine) (Heparin Vial(*)) 5,000 units SUBCUT Q8HR CONY Hydromorphone HCl (Dilaudid Inj1s*) 1 mg IV SLOW PU Q4H PRN PRN Reason: PAIN Last Admin: 10/03/18 16:32 Dose: 1 mg Lactated Ringer's (Lactated Ringers 1000 Ml Bag*) 1,000 mls @ 125 mls/hr IV PER RATE ON LICENSE OF [facility] Last Admin: 10/03/18 06:26 Dose: 125 mls/hr Lidocaine (Xylocaine 2% Viscous*) 15 ml SWISH SPIT TID PRN PRN Reason: PAIN Last Admin: 09/24/18 08:29 Dose: 15 ml Lorazepam (Ativan Tab(*)) 1 mg PO Q6H PRN PRN Reason: ANXIETY Last Admin: 10/02/18 19:34 Dose: 1 mg Montelukast Sodium (Singulair Tab*) 10 mg PO DAILY ON LICENSE OF [facility] Last Admin: 10/03/18 09:31 Dose: 10 mg Morphine Sulfate (Morphine Vial*) 2 mg IV Q2H PRN PRN Reason: PAIN Last Admin: 10/02/18 17:37 Dose: 2 mg Multivitamins/Minerals (Theragran/Minerals Tab*) 1 tab PO DAILY ON LICENSE OF [facility] Last Admin: 10/03/18 09:31 Dose: 1 tab Ondansetron HCl (Zofran Inj*) 4 mg IV Q6H PRN PRN Reason: nausea Oxycodone HCl (Roxycodone Tab*) 10 mg PO Q4H PRN PRN Reason: PAIN - SEVERE Last Admin: 10/03/18 15:00 Dose: 10 mg Oxycodone/Acetaminophen (Percocet 5/325 Tab*) 1 tab PO Q4H PRN PRN Reason: PAIN Oxycodone/Acetaminophen (Percocet 5/325 Tab*) 2 tab PO Q4H PRN PRN Reason: PAIN Last Admin: 10/03/18 12:54 Dose: 2 tab Pantoprazole Sodium (Protonix Tab *) 40 mg PO DAILY ON LICENSE OF [facility] Last Admin: 10/03/18 09:31 Dose: 40 mg Pharmacy Consult (Vancomycin Random Level*) 1 note FOLLOW UP ONCE ONE Stop: 10/04/18 06:01 Senna (Senokot Tab*) 1 tab PO BEDTIME PRN PRN Reason: CONSTIPATION Thiamine HCl (Vitamin B-1 Tab*) 100 mg PO DAILY ON LICENSE OF [facility] Last Admin: 10/03/18 09:31 Dose: 100 mg Venlafaxine HCl (Effexor Xr Cap*) 150 mg PO DAILY ON LICENSE OF [facility] Last Admin: 10/03/18 09:31 Dose: 150 mg Vital Signs - 8 hr 10/03/18 10/03/18 10/03/18 10:23 10:52 11:01 Respiratory 18 18 18 Rate 10/03/18 10/03/18 10/03/18 12:20 12:54 13:40 Respiratory 18 18 18 Rate 10/03/18 10/03/18 10/03/18 13:41 15:00 16:32 Respiratory 20 18 20 Rate Oxygen Devices in Use Now: None Appearance: alert, no distress Neck: NL Appearance and Movements; NL JVP Respiratory: Symmetrical Chest Expansion and Respiratory Effort Cardiovascular: NL Sounds; No Murmurs; No JVD Skin: - - LLE in cast/bandage w/ drains, toes well-perfused, good cap refill Neurological: Alert and Oriented x 3 Lines/Tubes/Other Access: Clean, Dry and Intact PICC Line Nutrition: Taking PO's Result Diagrams: 10/03/18 06:23 10/03/18 06:23 Microbiology and Other Data: Microbiology 10/02/18 15:00 Leg Left Gram Stain - Final 09/26/18 02:43 Urine Urine Culture - Final No Growth (<1,000 CFU/mL) 09/25/18 14:30 Wound - Left Leg Anaerobic Culture - Final No Growth Day 4 09/25/18 14:30 Wound Anaerobic Culture - Final No Growth Day 4 09/25/18 14:30 Leg Left Gram Stain - Final 09/25/18 14:30 Leg Left Wound Culture - Final No Growth Day 4 09/25/18 14:30 Leg Left Gram Stain - Final 09/25/18 14:30 Leg Left Wound Culture - Final No Growth Day 4 09/21/18 06:00 Urine Urine Culture - Final No Growth (<1,000 CFU/mL) 10/02/18 15:00 No Source Provided Anaerobic Culture - Preliminary No Growth Day 1 10/02/18 15:00 Leg Left Wound Culture - Preliminary No Growth Day 1 Assess/Plan/Problems-Billing Assessment: This is a 47 yo woman with h/o polysubstance abuse, anxiety/depression, was on Suboxone and Clonazepam presented with left leg compartment syndrome after syncope and collapse on 09/18 potential overdose. - Patient Problems (1) Compartment syndrome Current Visit: Yes Status: Acute Priority: High Code(s): T79.A0XA - COMPARTMENT SYNDROME, UNSPECIFIED, INITIAL ENCOUNTER SNOMED Code(s): 499015752 Comment: - Appears initiated by trauma during syncope/overdose, patient has poor recollection of events - s/p fasciotomy and debridement 09/20/18, 09/21/18, 09/25/18, 09/28/18, and 10/02/18 - Will need continued surgical debridements as per ortho - Defer to orthopedics for continued management, preservation of limb and hopefully avoiding amputation - Pain control adequate, on dilaudid prn (2) Acute tubular necrosis Current Visit: Yes Status: Acute Priority: High Code(s): N17.0 - ACUTE KIDNEY FAILURE WITH TUBULAR NECROSIS SNOMED Code(s): 62072131 Comment: -Acute renal failure due to rhabdo now slowly resolving -Euvolemic (3) Anemia Current Visit: Yes Status: Acute Priority: Medium Code(s): D64.9 - ANEMIA , UNSPECIFIED SNOMED Code(s): 303632138 Comment: - Suspected etiology of anemia multifactoral. - Renal disease, infection, and surgery contributing - Cont monitoring H&H, transfuse due to HGB <7 (4) DVT prophylaxis Current Visit: Yes Status: Acute Priority: Low Code(s): AKN0475 - SNOMED Code(s): 341928455 Comment: - heparin SQ - SCDs on RLE Status and Disposition: Inpatient, dispo TBD, status: guarded
[2018-10-04] MEDS: oxyCODONE TAB* 5 MG TAB PO PRN ×4 (01:33→17:54)
[2018-10-04] MEDS: HYDROmorphone INJ1* 1 MG/ML SYRINGE IV SLOW PU PRN ×5 (01:54→20:38)
[2018-10-04] MEDS: oxyCODONE/Acetamin 5/325 MG* TAB PO PRN ×4 (04:14→20:38)
[2018-10-04 05:39] LABS: ABS Basophils 0.1 10^3/ul (0-0.2); ABS Eosinophils 0.2 10^3/ul (0-0.6); ABS Lymphocytes 1.9 10^3/ul (1.0-4.8); ABS Monocytes 1.2 10^3/ul (0-0.8); ABS Neutrophils 6.9 10^3/ul (1.5-7.7); ABS Nucleated RBC 0 10^3/ul; Eosinophil % 1.7 %; Hematocrit 21 % (35-47); Hemoglobin 7.3 g/dl (12.0-16.0); Lymphocyte % 18.3 %; Mean Corpuscular HGB Conc 34 g/dl (31-36); Mean Corpuscular Hemoglobin 30 pg (27-31); Mean Corpuscular Volume 88 fL (80-97); Mean Platelet Volume 8.1 fL (7.4-10.4); Nucleated Red Blood Cells % 0; Platelet Count 422 10^3/ul (150-450); Red Blood Count 2.44 10^6/ul (4.00-5.40); Red Cell Distribution Width 14 % (10.5-15); White Blood Count 10.2 10^3/ul (3.5-10.8)
[2018-10-04 05:49] LABS: BUN/Creatinine Ratio 8.3 (8-20); C Reactive Protein 79.6 mg/L (<8.01); Calcium 8.2 mg/dL (8.6-10.3); EGFR African American 27.8 (>60); EGFR Non-African American 22.9 (>60); Potassium 3.6 mmol/L (3.5-5.0)
[2018-10-04] MEDS ORDERED: Vancomycin Random Level* NOTE FOLLOW UP ONE (06:00)
[2018-10-04 06:25] LABS: Vancomycin Random 17.5 mcg/mL
--- NOTE | 2018-10-04 09:12 | PN ---
Progress Note - Progress Note Date of Service: 10/04/18 SOAP: Subjective: []Pt was seen and examined at bedside. Has some burning sensation of the left lower leg, no sensation of the left foot. Denies CP, SOB, dizziness, nausea. Objective: [] General: NAD LLE: Left lower leg dressing CDI, splint in place, wrapped to toes. Wound vac in place with good suction leak check satisfactory after being off overnight. Exposed toes are warm with capillary refill less than two seconds. Lacks sensation of exposed toes and she is unable to wiggle the MTPs. Passive ROM digits is nonpainful. Padding added to splint at edges. There is no erythema proximal or distal to the dressing. Right calf is supple and nontender without erythema, edema or palpable cords. Assessment: []Compartment syndrome left leg left foot without sensation and without active motor function sp compartment fasciotomy and extensive serial debridements of necrotic tissue left, POD2 most recent debridement IVDU Rhabdomyolysis Plan: []Splint keeping L ankle at 90 degrees no need for podus boot while this is present PT- non weight bearing LLE, OOB Received 1unit PRBC last night, H&H improved, may resume heparin and wound vac today Plan for return to OR with Dr Appiah, possible closure Tuesday at midnight needs to be NPO, hold heparin. CBC, BMP, INR in at 0600 10/05 Vital Signs Temp 97.7 F 10/04/18 07:49 Pulse 78 10/04/18 07:49 Resp 18 10/04/18 08:00 BP 136/78 10/04/18 07:49 Pulse Ox 94 10/04/18 07:49 Intake & Output 10/03/18 10/04/18 10/04/18 18:59 06:59 18:59 Intake Total 840 1680 Output Total 800 1250 0 Balance 40 430 0 Weight 191 lb 14.4 oz Intake: Oral 840 1680 Output: Urine 800 1250 0 Laboratory Last Values WBC 10.2 10^3/ul (3.5-10.8) 10/04/18 05:15 RBC 2.44 10^6/ul (4.00-5.40) L 10/04/18 05:15 Hgb 7.3 g/dl (12.0-16.0) L 10/04/18 05:15 Hct 21 % (35-47) L 10/04/18 05:15 MCV 88 fL (80-97) 10/04/18 05:15 MCH 30 pg (27-31) 10/04/18 05:15 MCHC 34 g/dl (31-36) 10/04/18 05:15 RDW 14 % (10.5-15) 10/04/18 05:15 Plt Count 422 10^3/ul (150-450) 10/04/18 05:15 MPV 8.1 fL (7.4-10.4) 10/04/18 05:15 Neut % (Auto) 67.3 % 10/04/18 05:15 Lymph % (Auto) 18.3 % 10/04/18 05:15 [place] % (Auto) 11.8 % 10/04/18 05:15 Eos % (Auto) 1.7 % 10/04/18 05:15 Baso % (Auto) 0.9 % 10/04/18 05:15 Absolute Neuts (auto) 6.9 10^3/ul (1.5-7.7) 10/04/18 05:15 Absolute Lymphs (auto) 1.9 10^3/ul (1.0-4.8) 10/04/18 05:15 Absolute Monos (auto) 1.2 10^3/ul (0-0.8) H 10/04/18 05:15 Absolute Eos (auto) 0.2 10^3/ul (0-0.6) 10/04/18 05:15 Absolute Basos (auto) 0.1 10^3/ul (0-0.2) 10/04/18 05:15 Absolute Nucleated RBC 0 10^3/ul 10/04/18 05:15 Nucleated RBC % 0 10/04/18 05:15 Haptoglobin 138 mg/dL (30 - 200) 09/28/18 13:39 INR (Anticoag Therapy) 1.19 (0.77-1.02) H 09/22/18 05:51 APTT 29.5 seconds (26.0-36.3) 09/22/18 05:51 Sodium 141 mmol/L (135-145) 10/04/18 05:15 Potassium 3.6 mmol/L (3.5-5.0) 10/04/18 05:15 Chloride 106 mmol/L (101-111) 10/04/18 05:15 Carbon Dioxide 30 mmol/L (22-32) 10/04/18 05:15 Anion Gap 5 mmol/L (2-11) 10/04/18 05:15 BUN 19 mg/dL (6-24) 10/04/18 05:15 Creatinine 2.29 mg/dL (0.51-0.95) H 10/04/18 05:15 Est GFR ( Amer) 27.8 (>60) 10/04/18 05:15 Est GFR (Non-Af Amer) 22.9 (>60) 10/04/18 05:15 BUN/Creatinine Ratio 8.3 (8-20) 10/04/18 05:15 Glucose 102 mg/dL (70-100) H 10/04/18 05:15 Lactic Acid 2.0 mmol/L (0.5-2.0) 09/19/18 21:56 Calcium 8.2 mg/dL (8.6-10.3) L 10/04/18 05:15 Phosphorus 5.6 mg/dL (2.5-5.0) H 09/25/18 06:06 Magnesium 2.1 mg/dL (1.9-2.7) 09/30/18 05:49 Iron 23 ug/dL (50-212) L 09/28/18 13:39 TIBC 286 mcg/dL (250-450) 09/28/18 13:39 % Saturation 8 % (15-55) L 09/28/18 13:39 Unsat Iron Binding < 271 ug/dL 09/28/18 13:39 Transferrin 204 mg/dL (203-362) 09/28/18 13:39 Erythropoietin 12.6 mIU/mL (2.6 - 18.5) 09/28/18 13:39 Ferritin 126.9 ng/mL (11-307) 09/28/18 13:39 Total Bilirubin 0.40 mg/dL (0.2-1.0) 09/28/18 06:15 Direct Bilirubin 0.10 mg/dL (0.03-0.18) 09/28/18 06:15 Indirect Bilirubin 0.3 mg/dL (0.3-1.0) 09/28/18 06:15 AST 88 U/L (13-39) H 09/28/18 06:15 ALT 8 U/L (7-52) 09/28/18 06:15 Alkaline Phosphatase 191 U/L (34-104) H 09/28/18 06:15 Lactate Dehydrogenase 524 U/L (140-271) H 09/28/18 13:39 Total Creatine Kinase 575 U/L (10-223) H 10/01/18 05:34 C-Reactive Protein 79.60 mg/L (<8.01) H 10/04/18 05:15 Total Protein 5.0 g/dL (6.4-8.9) L 09/28/18 06:15 Albumin 2.4 g/dL (3.2-5.2) L 09/28/18 06:15 Globulin 2.6 g/dL (2-4) 09/28/18 06:15 Albumin/Globulin Ratio 0.9 (1-3) L 09/28/18 06:15 Vitamin B12 958 pg/mL (180-914) H 09/28/18 13:39 Folate 14.70 ng/mL (>3.99) 09/28/18 13:39 Beta HCG, Quant < 0.60 mIU/mL 09/19/18 21:56 Urine Color Yellow 09/26/18 02:43 Urine Appearance Clear 09/26/18 02:43 Urine pH 6.0 (5-9) 09/26/18 02:43 Ur Specific [place] 1.012 (1.010-1.030) 09/26/18 02:43 Urine Protein Negative (Negative) 09/26/18 02:43 Urine Ketones Negative (Negative) 09/26/18 02:43 Urine Blood 3+ (Negative) A 09/26/18 02:43 Urine Nitrate Negative (Negative) 09/26/18 02:43 Urine Bilirubin Negative (Negative) 09/26/18 02:43 Urine Urobilinogen Negative (Negative) 09/26/18 02:43 Ur Leukocyte Esterase Negative (Negative) 09/26/18 02:43 Urine WBC (Auto) 1+(6-10/hpf) (Absent) A 09/26/18 02:43 Urine RBC (Auto) 2+(6-10/hpf) (Absent) A 09/26/18 02:43 Ur Squamous Epith Cells Present (Absent) A 09/26/18 02:43 Urine Bacteria Absent (Absent) 09/26/18 02:43 Ur Creatinine Concen 96.33 mg/dL 09/26/18 02:43 U Sodium Concentration 42 mmol/L 09/26/18 02:43 Urine Glucose Negative (Negative) 09/26/18 02:43 Vancomycin Trough 15.6 mcg/mL 09/25/18 06:06 Random Vancomycin 17.5 mcg/mL 10/04/18 05:15 Hepatitis A IgM Ab Nonreactive (Nonreactive) 09/20/18 15:10 Hep Bs Antigen Nonreactive (Nonreactive) 09/20/18 15:10 Hep B Core IgM Ab Nonreactive (Nonreactive) 09/20/18 15:10 Hepatitis C Antibody High reactive (Nonreactive) A 09/20/18 15:10 Hepatitis C Ab Index > 11.0 Index 09/20/18 15:10 Hepatitis C RNA Quant Undetected IU/mL (Undetected) 10/01/18 05:34 HIV 1&2 Antibody Nonreactive (Nonreactive) 10/01/18 05:34 Blood Type B Positive 10/02/18 09:47 Antibody Screen Negative 10/02/18 09:47 Crossmatch See Detail 10/02/18 09:47
[2018-10-04] MEDS: Ferrous Sulfate TAB* 325 MG PO SCH (10:18)
[2018-10-04] MEDS: Thiamine TAB* 100 MG TAB PO SCH (10:19)
[2018-10-04] MEDS: Venlafaxine EXT RELEASE CAP* 75 MG PO SCH (10:19)
[2018-10-04] MEDS: Folic Acid TAB* 1 MG PO SCH (10:19)
[2018-10-04] MEDS: Montelukast Sodium TAB* 10 MG PO SCH (10:19)
[2018-10-04] MEDS: Heparin VIAL(*) 5000 UNITS/ML VIAL (FIVE THOUSAND) SUBCUT SCH ×3 (10:19→21:54)
[2018-10-04] MEDS: Pantoprazole TAB * 40 MG TAB PO SCH (10:19)
[2018-10-04] MEDS: Ascorbic Acid TAB* 500 MG PO SCH (10:19)
[2018-10-04] MEDS: Multivitamins/Minerals TAB PO SCH (10:19)
[2018-10-04] MEDS: Docusate CAP* 100 MG PO SCH ×2 (10:19→21:54)
[2018-10-04] MEDS: Cetirizine* 10 MG TAB PO SCH (10:19)
[2018-10-04] MEDS ORDERED: ceFAZolin 1 GM ADVAN(*) 1 GM in NS 0.9% 50 ML* 50 ML IVPB ONE (12:40)
--- NOTE | 2018-10-04 12:43 | PN ---
Subjective Date of Service: 10/04/18 Interval History: Pt seen and examined. Meds and labs reviewed. S/P 1 unit PRBC transfusion last night. CC: N/A ROS: Denied MADSEN/dizziness, F/C, N/V, CP, SOB, increased cough, sputum production , abd pain, diarrhea, constipation, dysuria, myalgias, arthralgias, throat pain , and new skin lesions. The rest of the 14 point ROS are unremarkable. PHYSICAL EXAM: GEN APPEARANCE: Awake, not in acute distress HEENT: NC/AT, PERRLA, moist oral mucosa, (-) throat erythema NECK: Soft, supple, (-) cervical LAD, (-)JVD HEART: S1S2 WNL, RRR, No MRG CHEST: CTA, BL, GAE, No W/R/R ABD: Soft, ND/NT, NABS 4x Q EXT: No C/C/LLE, cdi, no sensation on toes SKIN: Warm to touch PSYCH: No active psychosis, hallucinations, depression, SI/HI Family History: Unchanged from Admission Social History: Unchanged from Admission Past Medical History: Unchanged from Admission Objective Active Medications: Acetaminophen (Tylenol Tab*) 650 mg PO Q6H PRN PRN Reason: PAIN OR TEMPERATURE Last Admin: 09/29/18 12:44 Dose: 650 mg Ascorbic Acid (Vitamin C Tab*) 500 mg PO DAILY [facility] Last Admin: 10/04/18 10:19 Dose: 500 mg Cetirizine HCl (Zyrtec*) 10 mg PO DAILY [facility] Last Admin: 10/04/18 10:19 Dose: 10 mg Diphenhydramine HCl (Benadryl Iv*) 25 mg IV Q6H PRN PRN Reason: itching Diphenhydramine HCl (Benadryl Po*) 25 mg PO Q4H PRN PRN Reason: ITCHING Last Admin: 09/20/18 19:55 Dose: 25 mg Docusate Sodium (Colace Cap*) 100 mg PO BID [facility] Last Admin: 10/04/18 10:19 Dose: 100 mg Ferrous Sulfate (Ferrous Sulfate Tab*) 325 mg PO DAILY [facility] Last Admin: 10/04/18 10:18 Dose: 325 mg Folic Acid (Folvite Tab*) 1 mg PO DAILY [facility] Last Admin: 10/04/18 10:19 Dose: 1 mg Heparin Sodium (Porcine) (Heparin Flush Picc/Ml/Cvc(*)) 1 - 3 ml FLUSH 0600, 1800 [facility]; Protocol Last Admin: 10/04/18 05:19 Dose: 2 ml Heparin Sodium (Porcine) (Heparin Vial(*)) 5,000 units SUBCUT Q8HR [facility] Last Admin: 10/04/18 10:19 Dose: 5,000 units Hydromorphone HCl (Dilaudid Inj1s*) 1 mg IV SLOW PU Q4H PRN PRN Reason: PAIN Last Admin: 10/04/18 11:28 Dose: 1 mg Lactated Ringer's (Lactated Ringers 1000 Ml Bag*) 1,000 mls @ 125 mls/hr IV PER RATE [facility] Last Admin: 10/03/18 06:26 Dose: 125 mls/hr Cefazolin Sodium 1 gm/ Sodium (Chloride) 50 mls @ 200 mls/hr IVPB ONCE ONE Stop: 10/04/18 12:54 Lidocaine (Xylocaine 2% Viscous*) 15 ml SWISH SPIT TID PRN PRN Reason: PAIN Last Admin: 09/24/18 08:29 Dose: 15 ml Lorazepam (Ativan Tab(*)) 1 mg PO Q6H PRN PRN Reason: ANXIETY Last Admin: 10/02/18 19:34 Dose: 1 mg Montelukast Sodium (Singulair Tab*) 10 mg PO DAILY [facility] Last Admin: 10/04/18 10:19 Dose: 10 mg Morphine Sulfate (Morphine Inj ((Syringe))*) 2 mg IV Q2H PRN PRN Reason: PAIN Multivitamins/Minerals (Theragran/Minerals Tab*) 1 tab PO DAILY [facility] Last Admin: 10/04/18 10:19 Dose: 1 tab Ondansetron HCl (Zofran Inj*) 4 mg IV Q6H PRN PRN Reason: nausea Oxycodone HCl (Roxycodone Tab*) 10 mg PO Q4H PRN PRN Reason: PAIN - SEVERE Last Admin: 10/04/18 12:28 Dose: 10 mg Oxycodone/Acetaminophen (Percocet 5/325 Tab*) 1 tab PO Q4H PRN PRN Reason: PAIN Oxycodone/Acetaminophen (Percocet 5/325 Tab*) 2 tab PO Q4H PRN PRN Reason: PAIN Last Admin: 10/04/18 10:20 Dose: 2 tab Pantoprazole Sodium (Protonix Tab *) 40 mg PO DAILY [facility] Last Admin: 10/04/18 10:19 Dose: 40 mg Senna (Senokot Tab*) 1 tab PO BEDTIME PRN PRN Reason: CONSTIPATION Thiamine HCl (Vitamin B-1 Tab*) 100 mg PO DAILY [facility] Last Admin: 10/04/18 10:19 Dose: 100 mg Venlafaxine HCl (Effexor Xr Cap*) 150 mg PO DAILY [facility] Last Admin: 10/04/18 10:19 Dose: 150 mg Vital Signs - 8 hr 10/04/18 10/04/18 10/04/18 06:15 07:28 07:49 Temperature 97.7 F Pulse Rate 78 Respiratory 16 18 16 Rate Blood Pressure 136/78 (mmHg) O2 Sat by Pulse 94 Oximetry 10/04/18 10/04/18 10/04/18 08:00 10:20 11:11 Temperature 98.4 F Pulse Rate 85 Respiratory 18 18 16 Rate Blood Pressure 129/86 (mmHg) O2 Sat by Pulse 99 Oximetry 10/04/18 10/04/18 11:28 12:28 Temperature Pulse Rate Respiratory 16 16 Rate Blood Pressure (mmHg) O2 Sat by Pulse Oximetry Oxygen Devices in Use Now: None Result Diagrams: 10/04/18 05:15 10/04/18 05:15 Additional Lab and Data: Laboratory Tests 09/30/18 09/30/18 10/01/18 05:49 05:49 05:34 WBC 14.5 H 11.4 H Hgb 7.5 L 7.4 L Hct 22 L 22 L Total Creatine Kinase 689 H Random Vancomycin 10/01/18 05:34 WBC Hgb Hct Total Creatine Kinase 575 H Random Vancomycin 14.3 Microbiology and Other Data: Microbiology 10/02/18 15:00 Leg Left Gram Stain - Final 09/26/18 02:43 Urine Urine Culture - Final No Growth (<1,000 CFU/mL) 09/25/18 14:30 Wound - Left Leg Anaerobic Culture - Final No Growth Day 4 09/25/18 14:30 Wound Anaerobic Culture - Final No Growth Day 4 09/25/18 14:30 Leg Left Gram Stain - Final 09/25/18 14:30 Leg Left Wound Culture - Final No Growth Day 4 09/25/18 14:30 Leg Left Gram Stain - Final 09/25/18 14:30 Leg Left Wound Culture - Final No Growth Day 4 09/21/18 06:00 Urine Urine Culture - Final No Growth (<1,000 CFU/mL) 10/02/18 15:00 No Source Provided Anaerobic Culture - Preliminary No Growth Day 1 10/02/18 15:00 Leg Left Wound Culture - Preliminary No Growth Day 1 Diagnostic Imaging: CARDIAC ECHO: Conclusions Global left ventricular wall motion and contractility are within normal limits. There is normal left ventricular systolic function. The estimated ejection fraction is 55-60%. There is no evidence of aortic stenosis. There is mild mitral regurgitation. There is mild tricuspid regurgitation. There is no significant pericardial effusion. RENAL US: Patient Name: EDD LOVING Medical Record#: [id number] Ordering Physician: Radha Ruvalcaba MD Acct.#: [id number] : 1970 Age: 47 Sex: F Location: SURGICAL STAY UNIT Exam Date: 09/20/181746 ADM Status: ADM IN Order Information: US RENAL COMPLETE Accession Number: [id number] CPT: 67461 EXAM: US Retroperitoneal Limited, Kidneys EXAM DATE/TIME: 09/20/2018 6:15 PM CLINICAL HISTORY: 47 years old, female; Signs and symptoms; Other: Oligouria; Additional info: Re: Arf TECHNIQUE: Real-time ultrasound of the retroperitoneum with image documentation. Examination was focused on the kidneys. COMPARISON: No relevant prior studies available. FINDINGS: Right kidney: Right kidney measures 12.9 x 6.2 x 6.4 cm. No hydronephrosis, stone or mass. Left kidney: Left kidney measures 11.3 x 6.4 x 6.3 cm. Bladder: The bladder is not evaluated. IMPRESSION: No hydronephrosis, stone or mass. Assess/Plan/Problems-Billing Assessment: This is a 47 yo woman with h/o polysubstance abuse, anxiety/depression, was on Suboxone and Clonazepam presented with left leg compartment syndrome after syncope and collapse on 09/18 potential overdose. - Patient Problems (1) Compartment syndrome Current Visit: Yes Status: Acute Priority: High Code(s): T79.A0XA - COMPARTMENT SYNDROME, UNSPECIFIED, INITIAL ENCOUNTER SNOMED Code(s): 708951548 Comment: - Appears initiated by trauma during syncope/overdose, patient has poor recollection of events - s/p fasciotomy and debridement 09/20/18, 09/21/18, 09/25/18, 09/28/18, and 10/02/18 -For planned return to OR and wound closure on - Defer to orthopedics for continued management, preservation of limb and hopefully avoiding amputation - Pain control adequate, on dilaudid prn (2) Acute tubular necrosis Current Visit: Yes Status: Acute Priority: High Code(s): N17.0 - ACUTE KIDNEY FAILURE WITH TUBULAR NECROSIS SNOMED Code(s): 42934806 Comment: -Acute renal failure due to rhabdo now slowly resolving -Euvolemic (3) Anemia Current Visit: Yes Status: Acute Priority: Medium Code(s): D64.9 - ANEMIA , UNSPECIFIED SNOMED Code(s): 215414748 Comment: -Agree w/multifactorial cause and per Iron studies, likely due to ELOY + AOCD -Placed pt on Ferrous sulfate and Vit C -Renal disease, infection, and surgery contributing -Repeat CBC in AM Status and Disposition: -For PT/OT re-eval post planned re-visit and closure on -Defer w/Orthopedics
[2018-10-04] MEDS ORDERED: Heparin VIAL(*) 5000 UNITS/ML VIAL (FIVE THOUSAND) SUBCUT SCH (14:00)
[2018-10-04] MEDS: ceFAZolin 500 MG VIAL(*) 500 MG in NS 0.9% 50 ML* 50 ML IVPB SCH (14:59)
[2018-10-05] MEDS: ceFAZolin 500 MG VIAL(*) 500 MG in NS 0.9% 50 ML* 50 ML IVPB SCH ×2 (00:43→13:50)
[2018-10-05] MEDS: HYDROmorphone INJ1* 1 MG/ML SYRINGE IV SLOW PU PRN ×5 (00:43→20:28)
[2018-10-05 05:55] LABS: ABS Basophils 0.1 10^3/ul (0-0.2); ABS Eosinophils 0.2 10^3/ul (0-0.6); ABS Lymphocytes 1.5 10^3/ul (1.0-4.8); ABS Monocytes 1.2 10^3/ul (0-0.8); ABS Nucleated RBC 0 10^3/ul; Eosinophil % 2.2 %; Hematocrit 22 % (35-47); Hemoglobin 7.4 g/dl (12.0-16.0); Lymphocyte % 16.9 %; Mean Corpuscular HGB Conc 34 g/dl (31-36); Mean Corpuscular Hemoglobin 29 pg (27-31); Mean Corpuscular Volume 88 fL (80-97); Nucleated Red Blood Cells % 0; Platelet Count 447 10^3/ul (150-450); Red Blood Count 2.52 10^6/ul (4.00-5.40); Red Cell Distribution Width 15 % (10.5-15)
[2018-10-05 06:08] LABS: INR 1.01 (0.77-1.02)
[2018-10-05 06:14] LABS: Albumin 2.6 g/dL (3.2-5.2); Albumin/Globulin Ratio 0.9 (1-3); BUN/Creatinine Ratio 9.9 (8-20); Calcium 8.3 mg/dL (8.6-10.3); EGFR African American 31.9 (>60); EGFR Non-African American 26.4 (>60); Globulin 2.8 g/dL (2-4); Magnesium 1.8 mg/dL (1.9-2.7); Phosphorus 4.8 mg/dL (2.5-5.0); Potassium 3.5 mmol/L (3.5-5.0); Total Bilirubin 0.3 mg/dL (0.2-1.0); Total Protein 5.4 g/dL (6.4-8.9)
[2018-10-05] MEDS: Morphine INJ* 2 MG/ML 1 ML SYRINGE (TWO MG - NEW SYRINGE VERSION) IV PRN ×2 (07:55→11:10)
[2018-10-05] MEDS: Cetirizine* 10 MG TAB PO SCH (08:06)
[2018-10-05] MEDS: Docusate CAP* 100 MG PO SCH ×2 (08:06→20:15)
[2018-10-05] MEDS: Ascorbic Acid TAB* 500 MG PO SCH (08:06)
[2018-10-05] MEDS: Pantoprazole TAB * 40 MG TAB PO SCH (08:06)
[2018-10-05] MEDS: Ferrous Sulfate TAB* 325 MG PO SCH (08:06)
[2018-10-05] MEDS: Folic Acid TAB* 1 MG PO SCH (08:06)
[2018-10-05] MEDS: Multivitamins/Minerals TAB PO SCH (08:06)
[2018-10-05] MEDS: Montelukast Sodium TAB* 10 MG PO SCH (08:06)
[2018-10-05] MEDS: Venlafaxine EXT RELEASE CAP* 75 MG PO SCH (08:07)
[2018-10-05] MEDS: Thiamine TAB* 100 MG TAB PO SCH (08:07)
[2018-10-05] MEDS ORDERED: Magnesium Sulfate 2 GM IV* 2 GM/50 ML BAG IVPB ONE (08:35)
[2018-10-05] MEDS ORDERED: Naloxone* 0.4 MG/ML 1 ML VIAL IV PRN (13:23)
[2018-10-05] MEDS ORDERED: oxyCODONE/Acetamin 5/325 MG* TAB PO PRN (13:23)
[2018-10-05] MEDS ORDERED: DiMENhydriNATE IV* 50 MG/ML VIAL IV PUSH PRN (13:23)
[2018-10-05] MEDS ORDERED: fentaNYL* 50 MCG/ML 5 ML VIAL (250 MCG VIAL) ONE (13:32)
[2018-10-05] MEDS ORDERED: Midazolam* 1 MG/ML 5 ML VIAL (5 MG) ONE (13:33)
[2018-10-05] MEDS ORDERED: Lidocaine 2% PF * 5 ML VIAL ONE (13:33)
[2018-10-05] MEDS ORDERED: Propofol* 10 MG/ML 20 ML BTL ONE (13:33)
[2018-10-05] MEDS ORDERED: Bupivacaine 0.5%* 50 ML VIAL ONE (13:49)
--- NOTE | 2018-10-05 13:55 | PN ---
Subjective Date of Service: 10/05/18 Interval History: Pt seen and examined earlier in AM prior to planned procedure today. Meds and labs reviewed. CC: N/A ROS: Denied MADSEN/dizziness, F/C, N/V, CP, SOB, increased cough, sputum production , abd pain, diarrhea, constipation, dysuria, myalgias, arthralgias, throat pain , and new skin lesions. The rest of the 14 point ROS are unremarkable. PHYSICAL EXAM: GEN APPEARANCE: Awake, not in acute distress HEENT: NC/AT, PERRLA, moist oral mucosa, (-) throat erythema NECK: Soft, supple, (-) cervical LAD, (-)JVD HEART: S1S2 WNL, RRR, No MRG CHEST: CTA, BL, GAE, No W/R/R ABD: Soft, ND/NT, NABS 4x Q EXT: No C/C/LLE, cdi, no sensation on toes SKIN: Warm to touch PSYCH: No active psychosis, hallucinations, depression, SI/HI Family History: Unchanged from Admission Social History: Unchanged from Admission Past Medical History: Unchanged from Admission Objective Active Medications: Acetaminophen (Tylenol Tab*) 650 mg PO Q6H PRN PRN Reason: PAIN OR TEMPERATURE Last Admin: 09/29/18 12:44 Dose: 650 mg Ascorbic Acid (Vitamin C Tab*) 500 mg PO DAILY [facility] Last Admin: 10/05/18 08:06 Dose: Not Given Cetirizine HCl (Zyrtec*) 10 mg PO DAILY [facility] Last Admin: 10/05/18 08:06 Dose: Not Given Dimenhydrinate (Dramamine Iv*) 25 mg IV PUSH ONCE PRN PRN Reason: NAUSEA/VOMITING Diphenhydramine HCl (Benadryl Iv*) 25 mg IV Q6H PRN PRN Reason: itching Diphenhydramine HCl (Benadryl Po*) 25 mg PO Q4H PRN PRN Reason: ITCHING Last Admin: 09/20/18 19:55 Dose: 25 mg Docusate Sodium (Colace Cap*) 100 mg PO BID [facility] Last Admin: 10/05/18 08:06 Dose: Not Given Fentanyl Citrate (Fentanyl*) 50 mcg IV Q5M PRN PRN Reason: PAIN - MODERATE Ferrous Sulfate (Ferrous Sulfate Tab*) 325 mg PO DAILY [facility] Last Admin: 10/05/18 08:06 Dose: Not Given Folic Acid (Folvite Tab*) 1 mg PO DAILY [facility] Last Admin: 10/05/18 08:06 Dose: Not Given Heparin Sodium (Porcine) (Heparin Flush Picc/Ml/Cvc(*)) 1 - 3 ml FLUSH 0600, 1800 [facility]; Protocol Last Admin: 10/05/18 11:11 Dose: 1 ml Hydromorphone HCl (Dilaudid Inj1s*) 1 mg IV SLOW PU Q4H PRN PRN Reason: PAIN Last Admin: 10/05/18 09:30 Dose: 1 mg Hydromorphone HCl (Dilaudid Inj1s*) 0.2 mg IV Q5M PRN PRN Reason: PAIN - SEVERE Lactated Ringer's (Lactated Ringers 1000 Ml Bag*) 1,000 mls @ 125 mls/hr IV PER RATE [facility] Last Admin: 10/03/18 06:26 Dose: 125 mls/hr Cefazolin Sodium 500 mg/ (Sodium Chloride) 50 mls @ 200 mls/hr IVPB Q12H [facility] Last Admin: 10/05/18 00:43 Dose: 200 mls/hr Lidocaine (Xylocaine 2% Viscous*) 15 ml SWISH SPIT TID PRN PRN Reason: PAIN Last Admin: 09/24/18 08:29 Dose: 15 ml Lorazepam (Ativan Tab(*)) 1 mg PO Q6H PRN PRN Reason: ANXIETY Last Admin: 10/02/18 19:34 Dose: 1 mg Montelukast Sodium (Singulair Tab*) 10 mg PO DAILY [facility] Last Admin: 10/05/18 08:06 Dose: Not Given Morphine Sulfate (Morphine Inj ((Syringe))*) 2 mg IV Q2H PRN PRN Reason: PAIN Last Admin: 10/05/18 11:10 Dose: 2 mg Multivitamins/Minerals (Theragran/Minerals Tab*) 1 tab PO DAILY [facility] Last Admin: 10/05/18 08:06 Dose: Not Given Naloxone HCl (Narcan*) 0.08 mg IV Q2M PRN PRN Reason: severe induced resp depression Ondansetron HCl (Zofran Inj*) 4 mg IV Q6H PRN PRN Reason: nausea Oxycodone HCl (Roxycodone Tab*) 10 mg PO Q4H PRN PRN Reason: PAIN - SEVERE Last Admin: 10/04/18 17:54 Dose: 10 mg Oxycodone/Acetaminophen (Percocet 5/325 Tab*) 1 tab PO Q4H PRN PRN Reason: PAIN Oxycodone/Acetaminophen (Percocet 5/325 Tab*) 2 tab PO Q4H PRN PRN Reason: PAIN Last Admin: 10/04/18 20:38 Dose: 2 tab Oxycodone/Acetaminophen (Percocet 5/325 Tab*) 1 tab PO ONCE PRN PRN Reason: PAIN - MODERATE Pantoprazole Sodium (Protonix Tab *) 40 mg PO DAILY [facility] Last Admin: 10/05/18 08:06 Dose: Not Given Senna (Senokot Tab*) 1 tab PO BEDTIME PRN PRN Reason: CONSTIPATION Thiamine HCl (Vitamin B-1 Tab*) 100 mg PO DAILY [facility] Last Admin: 10/05/18 08:07 Dose: Not Given Venlafaxine HCl (Effexor Xr Cap*) 150 mg PO DAILY [facility] Last Admin: 10/05/18 08:07 Dose: Not Given Vital Signs - 8 hr 10/05/18 10/05/18 10/05/18 06:10 07:55 08:00 Temperature Pulse Rate Respiratory 16 16 18 Rate Blood Pressure (mmHg) O2 Sat by Pulse Oximetry 10/05/18 10/05/18 10/05/18 08:17 09:30 11:10 Temperature 98.7 F Pulse Rate 88 Respiratory 16 18 18 Rate Blood Pressure 156/92 (mmHg) O2 Sat by Pulse 95 Oximetry 10/05/18 10/05/18 11:34 12:34 Temperature 98.2 F Pulse Rate 87 Respiratory 16 16 Rate Blood Pressure 135/82 (mmHg) O2 Sat by Pulse 95 Oximetry Oxygen Devices in Use Now: None Result Diagrams: 10/05/18 05:35 10/05/18 05:35 Additional Lab and Data: Laboratory Tests 09/30/18 09/30/18 10/01/18 05:49 05:49 05:34 WBC 14.5 H 11.4 H Hgb 7.5 L 7.4 L Hct 22 L 22 L Total Creatine Kinase 689 H Random Vancomycin 10/01/18 05:34 WBC Hgb Hct Total Creatine Kinase 575 H Random Vancomycin 14.3 Microbiology and Other Data: Microbiology 10/02/18 15:00 Leg Left Gram Stain - Final 09/26/18 02:43 Urine Urine Culture - Final No Growth (<1,000 CFU/mL) 09/25/18 14:30 Wound - Left Leg Anaerobic Culture - Final No Growth Day 4 09/25/18 14:30 Wound Anaerobic Culture - Final No Growth Day 4 09/25/18 14:30 Leg Left Gram Stain - Final 09/25/18 14:30 Leg Left Wound Culture - Final No Growth Day 4 09/25/18 14:30 Leg Left Gram Stain - Final 09/25/18 14:30 Leg Left Wound Culture - Final No Growth Day 4 09/21/18 06:00 Urine Urine Culture - Final No Growth (<1,000 CFU/mL) 10/02/18 15:00 No Source Provided Anaerobic Culture - Preliminary No Growth Day 1 10/02/18 15:00 Leg Left Wound Culture - Preliminary No Growth Day 1 Diagnostic Imaging: CARDIAC ECHO: Conclusions Global left ventricular wall motion and contractility are within normal limits. There is normal left ventricular systolic function. The estimated ejection fraction is 55-60%. There is no evidence of aortic stenosis. There is mild mitral regurgitation. There is mild tricuspid regurgitation. There is no significant pericardial effusion. RENAL US: Patient Name: EDD LOVING Medical Record#: [id number] Ordering Physician: Radha Ruvalcaba MD Acct.#: [id number] : 1970 Age: 47 Sex: F Location: SURGICAL STAY UNIT Exam Date: 09/20/181746 ADM Status: ADM IN Order Information: US RENAL COMPLETE Accession Number: [id number] CPT: 48319 EXAM: US Retroperitoneal Limited, Kidneys EXAM DATE/TIME: 09/20/2018 6:15 PM CLINICAL HISTORY: 47 years old, female; Signs and symptoms; Other: Oligouria; Additional info: Re: Arf TECHNIQUE: Real-time ultrasound of the retroperitoneum with image documentation. Examination was focused on the kidneys. COMPARISON: No relevant prior studies available. FINDINGS: Right kidney: Right kidney measures 12.9 x 6.2 x 6.4 cm. No hydronephrosis, stone or mass. Left kidney: Left kidney measures 11.3 x 6.4 x 6.3 cm. Bladder: The bladder is not evaluated. IMPRESSION: No hydronephrosis, stone or mass. Assess/Plan/Problems-Billing Assessment: This is a 47 yo woman with h/o polysubstance abuse, anxiety/depression, was on Suboxone and Clonazepam presented with left leg compartment syndrome after syncope and collapse on 09/18 potential overdose. - Patient Problems (1) Compartment syndrome Current Visit: Yes Status: Acute Priority: High Code(s): T79.A0XA - COMPARTMENT SYNDROME, UNSPECIFIED, INITIAL ENCOUNTER SNOMED Code(s): 192543521 Comment: - Appears initiated by trauma during syncope/overdose, patient has poor recollection of events - s/p fasciotomy and debridement 09/20/18, 09/21/18, 09/25/18, 09/28/18, and 10/02/18 -For planned return to OR and wound closure this afternoon - Defer to orthopedics for continued management, preservation of limb and hopefully avoiding amputation - Pain control adequate, on dilaudid prn (2) Acute tubular necrosis Current Visit: Yes Status: Acute Priority: High Code(s): N17.0 - ACUTE KIDNEY FAILURE WITH TUBULAR NECROSIS SNOMED Code(s): 17170484 Comment: -Continues to improve -Continue watchful waiting (3) Anemia Current Visit: Yes Status: Acute Priority: Medium Code(s): D64.9 - ANEMIA , UNSPECIFIED SNOMED Code(s): 574578000 Comment: -Agree w/multifactorial cause and per Iron studies, likely due to ELOY + AOCD -Continue Ferrous sulfate and Vit C -Renal disease, infection, and surgery contributing -Stable CBC (4) DVT prophylaxis Current Visit: Yes Status: Acute Priority: Low Code(s): GCY3231 - SNOMED Code(s): 915073618 Comment: -D/Cd yesterday in possible anticipation for todays surgery? -Defer w/ortho and will defer when they feel the best time would be to be placed back on prophylaxis perioperatively Status and Disposition: -For PT/OT re-eval post planned re-visit and closure on -Defer w/Orthopedics in both disposition and timing of DVT prophylaxis post planned Sx; if no risk for bleeding per observation in OR would suggest to restart Heparin SQ 3-4 hours post op, but will defer.
[2018-10-05] MEDS ORDERED: Ondansetron INJ* 2 MG/ML VIAL ONE (14:16)
[2018-10-05] MEDS ORDERED: fentaNYL* 50 MCG/ML 2 ML VIAL (100 MCG VIAL) ONE ×3 (14:19→15:00)
[2018-10-05] MEDS: fentaNYL* 50 MCG/ML 2 ML VIAL (100 MCG VIAL) IV PRN ×5 (14:42→15:10)
--- NOTE | 2018-10-05 14:54 | OP ---
Operative Report - Blank - Operative Report Date of Operation: 10/05/18 Note: PATIENT: Peyton Trujillo DATE OF : 1970 DATE OF SURGERY: 10/05/2018 SURGEON: Cj Appiah MD PHOTOGRAPH EDITOR: ANN MARIE Marie, whos assistance was necessary for positioning, retraction, help with instrumentation, and closure. ANESTHESIOLOGIST: Dr. Gareth Schreiber PREOPERATIVE DIAGNOSIS: Left leg wound s/p compartment syndrome, 4 compartment fasciotomies, and multiple I&Ds POSTOPERATIVE DIAGNOSIS: Left leg wound s/p compartment syndrome, 4 compartment fasciotomies, and multiple I&Ds OPERATION: 1. Left leg irrigation and debridement 2. Complex secondary wound closure of left lateral leg wound 3. Placement of a wound VAC and incisional VAC to left leg ANESTHESIA: GETA IMPLANTS: VAC sponge TOURNIQUET TIME: none SPECIMENS: none ESTIMATED BLOOD LOSS: minimal COMPLICATIONS: none STATUS: Stable from the operating room to the recovery room and then back to the floor. INDICATIONS FOR PROCEDURE: Peyton has a left leg lateral wound s/p compartment syndrome, 4 compartment fasciotomies, and multiple I&Ds. Both operative and non-operative treatment alternatives were reviewed. Further, the nature and risks of surgery were reviewed in careful detail. Our discussions regarding the risks of surgery included, but were not limited to, infection, wound problems, nerve injury, neuroma, RSD, persistent symptoms, blood clot, need for further surgery, failure of the surgery, amputation, and even the remote chance of catastrophic complication. DESCRIPTION OF PROCEDURE: The patient was seen in the preoperative holding unit and informed written consent was obtained. The appropriate extremity was marked. The patient was then brought to the operating room and carefully positioned on the operating room table. Anesthesia was induced. All bony prominences were padded with great care. A well-padded thigh tourniquet was placed. A chlorhexidine based pre- scrub was performed followed by a betadine prep and drape in standard sterile fashion. A surgical safety pause was then conducted in which we confirmed the appropriate patient, extremity, planned procedure, availability of equipment, indication and administration of prophylactic antibiotics, and DVT prophylaxis in the form of a compression boot on the non-surgical extremity. I began by removing the VAC prior to skin prep. I sharply excised some remaining nonviable muscle in the lateral compartment. I then used cautery to maintain hemostasis. At this point, the wound was copiously irrigated with sterile saline and cystoscopy tubing. There was still a fair amount of tension on the skin, but I was able to close the proximal part of the incision. The total incision length was 24 cm. I closed the proximal 14 cm of the incision. It was a complex wound closure. Given her extensive debridements, there was undermining, and the subcutaneous tissue was very friable. I used a #1 PDS suture in a near-far, far-near pattern to tack the skin edges together. I then used a 0 PDS as a deep layer. I then used a skin stapler on the skin. The distal extent of the wound measured 10 cm in length and 5 cm in width. I placed a wound VAC into this area, and then an incisional VAC over the closed area of the incision. This held good suction. The medial sided wound was then dressed, and a well-padded splint was placed with the ankle in a neutral position. The patient was then awakened from anesthesia and transferred to the recovery room in stable condition. There were no complications. All needle and sponge counts were correct at the end of the case. ATTESTATION: I attest I was present and scrubbed and performed the critical portions of the procedure myself. POSTOPERATIVE PLAN: The plan will be to return to the OR on Tuesday with Dr. Wen for possible completion of the wound closure.
[2018-10-05] MEDS ORDERED: HYDROmorphone INJ1* 1 MG/ML SYRINGE ONE (15:01)
[2018-10-05] MEDS: HYDROmorphone INJ1* 1 MG/ML SYRINGE IV PRN ×5 (15:07→15:42)
[2018-10-05] MEDS: oxyCODONE/Acetamin 5/325 MG* TAB PO PRN ×2 (15:54→20:15)
[2018-10-05] MEDS: oxyCODONE TAB* 5 MG TAB PO PRN ×2 (18:08→23:00)
[2018-10-06] MEDS: HYDROmorphone INJ1* 1 MG/ML SYRINGE IV SLOW PU PRN ×6 (00:34→21:37)
[2018-10-06] MEDS: oxyCODONE/Acetamin 5/325 MG* TAB PO PRN ×5 (00:34→19:31)
[2018-10-06] MEDS: ceFAZolin 500 MG VIAL(*) 500 MG in NS 0.9% 50 ML* 50 ML IVPB SCH ×2 (00:40→15:15)
[2018-10-06] MEDS: oxyCODONE TAB* 5 MG TAB PO PRN ×3 (03:47→23:03)
[2018-10-06 05:24] LABS: Hematocrit 20 % (35-47); Mean Corpuscular HGB Conc 35 g/dl (31-36); Mean Corpuscular Hemoglobin 31 pg (27-31); Mean Corpuscular Volume 87 fL (80-97); Mean Platelet Volume 7.4 fL (7.4-10.4); Platelet Count 447 10^3/ul (150-450); Red Blood Count 2.27 10^6/ul (4.00-5.40); Red Cell Distribution Width 14 % (10.5-15); White Blood Count 8.9 10^3/ul (3.5-10.8)
[2018-10-06 05:42] LABS: BUN/Creatinine Ratio 9.4 (8-20); EGFR Non-African American 28.1 (>60); Potassium 3.5 mmol/L (3.5-5.0)
[2018-10-06] MEDS: Docusate CAP* 100 MG PO SCH ×2 (09:17→21:43)
[2018-10-06] MEDS: Pantoprazole TAB * 40 MG TAB PO SCH (09:17)
[2018-10-06] MEDS: Ascorbic Acid TAB* 500 MG PO SCH (09:17)
[2018-10-06] MEDS: Thiamine TAB* 100 MG TAB PO SCH (09:18)
[2018-10-06] MEDS: Ferrous Sulfate TAB* 325 MG PO SCH (09:18)
[2018-10-06] MEDS: Multivitamins/Minerals TAB PO SCH (09:18)
[2018-10-06] MEDS: Montelukast Sodium TAB* 10 MG PO SCH (09:18)
[2018-10-06] MEDS: Folic Acid TAB* 1 MG PO SCH (09:18)
[2018-10-06] MEDS: Cetirizine* 10 MG TAB PO SCH (09:19)
[2018-10-06] MEDS: Venlafaxine EXT RELEASE CAP* 75 MG PO SCH (09:47)
[2018-10-06 09:48] LABS: HCG Pregnancy 4.3 mIU/mL
--- NOTE | 2018-10-06 15:27 | PN ---
Subjective Date of Service: 10/06/18 Interval History: Pt seen and examined. Meds and labs reviewed. CC: N/A ROS: Denied MADSEN/dizziness, F/C, N/V, CP, SOB, increased cough, sputum production , abd pain, diarrhea, constipation, dysuria, myalgias, arthralgias, throat pain , and new skin lesions. The rest of the 14 point ROS are unremarkable. PHYSICAL EXAM: GEN APPEARANCE: Awake, not in acute distress HEENT: NC/AT, PERRLA, moist oral mucosa, (-) throat erythema NECK: Soft, supple, (-) cervical LAD, (-)JVD HEART: S1S2 WNL, RRR, No MRG CHEST: CTA, BL, GAE, No W/R/R ABD: Soft, ND/NT, NABS 4x Q EXT: No C/C/LLE, cdi, no sensation on toes SKIN: Warm to touch PSYCH: No active psychosis, hallucinations, depression, SI/HI Family History: Unchanged from Admission Social History: Unchanged from Admission Past Medical History: Unchanged from Admission Objective Active Medications: Acetaminophen (Tylenol Tab*) 650 mg PO Q6H PRN PRN Reason: PAIN OR TEMPERATURE Last Admin: 09/29/18 12:44 Dose: 650 mg Ascorbic Acid (Vitamin C Tab*) 500 mg PO DAILY [facility] Last Admin: 10/06/18 09:17 Dose: 500 mg Cetirizine HCl (Zyrtec*) 10 mg PO DAILY [facility] Last Admin: 10/06/18 09:19 Dose: 10 mg Diphenhydramine HCl (Benadryl Iv*) 25 mg IV Q6H PRN PRN Reason: itching Diphenhydramine HCl (Benadryl Po*) 25 mg PO Q4H PRN PRN Reason: ITCHING Last Admin: 09/20/18 19:55 Dose: 25 mg Docusate Sodium (Colace Cap*) 100 mg PO BID [facility] Last Admin: 10/06/18 09:17 Dose: 100 mg Ferrous Sulfate (Ferrous Sulfate Tab*) 325 mg PO DAILY [facility] Last Admin: 10/06/18 09:18 Dose: 325 mg Folic Acid (Folvite Tab*) 1 mg PO DAILY [facility] Last Admin: 10/06/18 09:18 Dose: 1 mg Heparin Sodium (Porcine) (Heparin Flush Picc/Ml/Cvc(*)) 1 - 3 ml FLUSH 0600, 1800 [facility]; Protocol Last Admin: 10/06/18 05:20 Dose: 2 ml Hydromorphone HCl (Dilaudid Inj1s*) 1 mg IV SLOW PU Q4H PRN PRN Reason: PAIN Last Admin: 10/06/18 13:03 Dose: 1 mg Lactated Ringer's (Lactated Ringers 1000 Ml Bag*) 1,000 mls @ 125 mls/hr IV PER RATE [facility] Last Admin: 10/03/18 06:26 Dose: 125 mls/hr Cefazolin Sodium 500 mg/ (Sodium Chloride) 50 mls @ 200 mls/hr IVPB Q12H [facility] Last Admin: 10/06/18 15:15 Dose: 200 mls/hr Lidocaine (Xylocaine 2% Viscous*) 15 ml SWISH SPIT TID PRN PRN Reason: PAIN Last Admin: 09/24/18 08:29 Dose: 15 ml Lorazepam (Ativan Tab(*)) 1 mg PO Q6H PRN PRN Reason: ANXIETY Last Admin: 10/02/18 19:34 Dose: 1 mg Montelukast Sodium (Singulair Tab*) 10 mg PO DAILY [facility] Last Admin: 10/06/18 09:18 Dose: 10 mg Morphine Sulfate (Morphine Inj ((Syringe))*) 2 mg IV Q2H PRN PRN Reason: PAIN Last Admin: 10/05/18 11:10 Dose: 2 mg Multivitamins/Minerals (Theragran/Minerals Tab*) 1 tab PO DAILY [facility] Last Admin: 10/06/18 09:18 Dose: 1 tab Ondansetron HCl (Zofran Inj*) 4 mg IV Q6H PRN PRN Reason: nausea Oxycodone HCl (Roxycodone Tab*) 10 mg PO Q4H PRN PRN Reason: PAIN - SEVERE Last Admin: 10/06/18 03:47 Dose: 10 mg Oxycodone/Acetaminophen (Percocet 5/325 Tab*) 1 tab PO Q4H PRN PRN Reason: PAIN Oxycodone/Acetaminophen (Percocet 5/325 Tab*) 2 tab PO Q4H PRN PRN Reason: PAIN Last Admin: 10/06/18 14:59 Dose: 2 tab Pantoprazole Sodium (Protonix Tab *) 40 mg PO DAILY [facility] Last Admin: 10/06/18 09:17 Dose: 40 mg Senna (Senokot Tab*) 1 tab PO BEDTIME PRN PRN Reason: CONSTIPATION Thiamine HCl (Vitamin B-1 Tab*) 100 mg PO DAILY [facility] Last Admin: 10/06/18 09:18 Dose: 100 mg Venlafaxine HCl (Effexor Xr Cap*) 150 mg PO DAILY [facility] Last Admin: 10/06/18 09:47 Dose: 150 mg Vital Signs - 8 hr 10/06/18 10/06/18 10/06/18 08:00 08:26 08:52 Temperature 98.3 F Pulse Rate 82 Respiratory 18 16 18 Rate Blood Pressure 144/85 (mmHg) O2 Sat by Pulse 97 97 Oximetry 10/06/18 10/06/18 10/06/18 11:08 11:56 13:03 Temperature 99.6 F Pulse Rate 91 Respiratory 18 20 18 Rate Blood Pressure 140/86 (mmHg) O2 Sat by Pulse 98 Oximetry 10/06/18 10/06/18 10/06/18 14:05 14:51 14:59 Temperature 98.4 F 97.9 F Pulse Rate 88 88 Respiratory 18 18 18 Rate Blood Pressure 131/76 127/79 (mmHg) O2 Sat by Pulse 96 98 Oximetry Oxygen Devices in Use Now: None Result Diagrams: 10/06/18 05:17 10/06/18 05:17 Additional Lab and Data: Laboratory Tests 09/30/18 09/30/18 10/01/18 05:49 05:49 05:34 WBC 14.5 H 11.4 H Hgb 7.5 L 7.4 L Hct 22 L 22 L Total Creatine Kinase 689 H Random Vancomycin 10/01/18 05:34 WBC Hgb Hct Total Creatine Kinase 575 H Random Vancomycin 14.3 Microbiology and Other Data: Microbiology 10/02/18 15:00 Leg Left Gram Stain - Final 09/26/18 02:43 Urine Urine Culture - Final No Growth (<1,000 CFU/mL) 09/25/18 14:30 Wound - Left Leg Anaerobic Culture - Final No Growth Day 4 09/25/18 14:30 Wound Anaerobic Culture - Final No Growth Day 4 09/25/18 14:30 Leg Left Gram Stain - Final 09/25/18 14:30 Leg Left Wound Culture - Final No Growth Day 4 09/25/18 14:30 Leg Left Gram Stain - Final 09/25/18 14:30 Leg Left Wound Culture - Final No Growth Day 4 09/21/18 06:00 Urine Urine Culture - Final No Growth (<1,000 CFU/mL) 10/02/18 15:00 No Source Provided Anaerobic Culture - Preliminary No Growth Day 1 10/02/18 15:00 Leg Left Wound Culture - Preliminary No Growth Day 1 Diagnostic Imaging: CARDIAC ECHO: Conclusions Global left ventricular wall motion and contractility are within normal limits. There is normal left ventricular systolic function. The estimated ejection fraction is 55-60%. There is no evidence of aortic stenosis. There is mild mitral regurgitation. There is mild tricuspid regurgitation. There is no significant pericardial effusion. RENAL US: Patient Name: EDD LOVING Medical Record#: [id number] Ordering Physician: Radha Ruvalcaba MD Acct.#: [id number] : 1970 Age: 47 Sex: F Location: SURGICAL STAY UNIT Exam Date: 09/20/181746 ADM Status: ADM IN Order Information: US RENAL COMPLETE Accession Number: [id number] CPT: 50154 EXAM: US Retroperitoneal Limited, Kidneys EXAM DATE/TIME: 09/20/2018 6:15 PM CLINICAL HISTORY: 47 years old, female; Signs and symptoms; Other: [place]lig[place]ria; Additional info: Re: Arf TECHNIQUE: Real-time ultrasound of the retroperitoneum with image documentation. Examination was focused on the kidneys. COMPARISON: No relevant prior studies available. FINDINGS: Right kidney: Right kidney measures 12.9 x 6.2 x 6.4 cm. No hydronephrosis, stone or mass. Left kidney: Left kidney measures 11.3 x 6.4 x 6.3 cm. Bladder: The bladder is not evaluated. IMPRESSION: No hydronephrosis, stone or mass. Assess/Plan/Problems-Billing Assessment: This is a 47 yo woman with h/o polysubstance abuse, anxiety/depression, was on Suboxone and Clonazepam presented with left leg compartment syndrome after syncope and collapse on 09/18 potential overdose. - Patient Problems (1) Compartment syndrome Current Visit: Yes Status: Acute Priority: High Code(s): T79.A0XA - COMPARTMENT SYNDROME, UNSPECIFIED, INITIAL ENCOUNTER SNOMED Code(s): 635914193 Comment: - Appears initiated by trauma during syncope/overdose, patient has poor recollection of events -S/P LLE irrigation and debridement, w complex wound closure on proximal area; plan is to close remaining sx wound on tuesday - s/p fasciotomy and debridement 09/20/18, 09/21/18, 09/25/18, 09/28/18, and 10/02/18 - Defer to orthopedics for continued management, preservation of limb and hopefully avoiding amputation - Pain control adequate, on dilaudid prn (2) Acute tubular necrosis Current Visit: Yes Status: Acute Priority: High Code(s): N17.0 - ACUTE KIDNEY FAILURE WITH TUBULAR NECROSIS SNOMED Code(s): 68759360 Comment: -Continues to improve -Continue watchful waiting (3) Anemia Current Visit: Yes Status: Acute Priority: Medium Code(s): D64.9 - ANEMIA , UNSPECIFIED SNOMED Code(s): 919862208 Comment: -Will transfuse 1 unit of PRBC given slowly trending H&H -Agree w/multifactorial cause and per Iron studies, likely due to ELOY + AOCD -Continue Ferrous sulfate and Vit C -Renal disease, infection, and surgery contributing -Stable CBC (4) DVT prophylaxis Current Visit: Yes Status: Acute Priority: Low Code(s): SAU0338 - SNOMED Code(s): 720584919 Comment: -D/Cd yesterday in possible anticipation for todays surgery? -Defer w/ortho and will defer when they feel the best time would be to be placed back on prophylaxis perioperatively -D/W Bernie Status and Disposition: -Defer w/Orthopedics in both disposition and timing of DVT prophylaxis post planned Sx; if no risk for bleeding per observation in OR would suggest to restart Heparin SQ 3-4 hours post op, but will defer.
--- NOTE | 2018-10-06 16:48 | PN ---
Progress Note - Progress Note Date of Service: 10/06/18 SOAP: Subjective: POD #1 repeat I&D left lower leg with partial wound closure and VAC placement. States that she is still having pain. No feeling or movement at foot or toes. Denies CP/SOB. Objective: Vitals: Temp Pulse Resp BP Pulse Ox 97.9 F 88 18 127/79 98 10/06/18 14:51 10/06/18 14:51 10/06/18 14:59 10/06/18 14:51 10/06/18 14:51 Gen: A&Ox3, NAD at rest laying in bed LLE: VAC with good suction, dressing C/D/I. No active motion at toes or ankle. No sensation to toes, dorsum of foot or anterior lower leg to mid smalls Labs: Laboratory Results - last 24 hr 10/06/18 10/06/18 10/06/18 05:17 05:17 05:17 WBC 8.9 RBC 2.27 L Hgb 7.0 L Hct 20 L MCV 87 MCH 31 MCHC 35 RDW 14 Plt Count 447 MPV 7.4 Sodium 141 Potassium 3.5 Chloride 106 Carbon Dioxide 29 Anion Gap 6 BUN 18 Creatinine 1.92 H Est GFR ( Amer) 34.0 Est GFR (Non-Af Amer) 28.1 BUN/Creatinine Ratio 9.4 Glucose 116 H Calcium 8.0 L Magnesium 2.0 Beta HCG, Quant 4.30 Blood Type B Positive Antibody Screen Negative Crossmatch See Detail Assessment: POD #1 repeat I&D left lower leg with partial wound closure and VAC placement Plan: Cont NWB LLE Repeat I&D with possible wound closure Tuesday
[2018-10-07] MEDS: oxyCODONE/Acetamin 5/325 MG* TAB PO PRN ×4 (01:05→21:41)
[2018-10-07] MEDS: ceFAZolin 500 MG VIAL(*) 500 MG in NS 0.9% 50 ML* 50 ML IVPB SCH ×2 (01:06→14:31)
[2018-10-07] MEDS: HYDROmorphone INJ1* 1 MG/ML SYRINGE IV SLOW PU PRN ×6 (02:06→23:11)
[2018-10-07 05:59] LABS: Hematocrit 22 % (35-47); Hemoglobin 7.6 g/dl (12.0-16.0); Mean Corpuscular HGB Conc 34 g/dl (31-36); Mean Corpuscular Hemoglobin 30 pg (27-31); Mean Corpuscular Volume 86 fL (80-97); Mean Platelet Volume 7.9 fL (7.4-10.4); Platelet Count 381 10^3/ul (150-450); Red Blood Count 2.59 10^6/ul (4.00-5.40); Red Cell Distribution Width 14 % (10.5-15); White Blood Count 8.3 10^3/ul (3.5-10.8)
[2018-10-07 06:15] LABS: Albumin 2.6 g/dL (3.2-5.2); Albumin/Globulin Ratio 0.9 (1-3); BUN/Creatinine Ratio 9.9 (8-20); Calcium 8.4 mg/dL (8.6-10.3); EGFR African American 41.4 (>60); EGFR Non-African American 34.2 (>60); Globulin 2.8 g/dL (2-4); Magnesium 1.9 mg/dL (1.9-2.7); Phosphorus 4.2 mg/dL (2.5-5.0); Potassium 3.5 mmol/L (3.5-5.0); Total Bilirubin 0.3 mg/dL (0.2-1.0); Total Protein 5.4 g/dL (6.4-8.9)
[2018-10-07] MEDS: oxyCODONE TAB* 5 MG TAB PO PRN ×2 (08:46→17:40)
[2018-10-07] MEDS: Venlafaxine EXT RELEASE CAP* 75 MG PO SCH (10:09)
[2018-10-07] MEDS: Pantoprazole TAB * 40 MG TAB PO SCH (10:10)
[2018-10-07] MEDS: Docusate CAP* 100 MG PO SCH ×2 (10:10→21:41)
[2018-10-07] MEDS: Folic Acid TAB* 1 MG PO SCH (10:10)
[2018-10-07] MEDS: Cetirizine* 10 MG TAB PO SCH (10:10)
[2018-10-07] MEDS: Ferrous Sulfate TAB* 325 MG PO SCH (10:11)
[2018-10-07] MEDS: Montelukast Sodium TAB* 10 MG PO SCH (10:12)
[2018-10-07] MEDS: Ascorbic Acid TAB* 500 MG PO SCH (10:12)
[2018-10-07] MEDS: Multivitamins/Minerals TAB PO SCH (10:12)
[2018-10-07] MEDS: Thiamine TAB* 100 MG TAB PO SCH (10:13)
[2018-10-07] MEDS: Acetaminophen TAB* 325 MG PO SCH ×2 (12:26→21:41)
--- NOTE | 2018-10-07 12:37 | PN ---
Progress Note - Progress Note Date of Service: 10/07/18 SOAP: Subjective: Pt seen at bedside. C/O pain in foot. States still unable to feel or move toes. Denies CP/SOB Vital Signs: Temp Pulse Resp BP Pulse Ox 98.3 F 76 18 118/75 96 10/07/18 08:11 10/07/18 08:11 10/07/18 12:27 10/07/18 08:11 10/07/18 08:11 Laboratory Last Values WBC 8.3 10^3/ul (3.5-10.8) 10/07/18 05:30 RBC 2.59 10^6/ul (4.00-5.40) L 10/07/18 05:30 Hgb 7.6 g/dl (12.0-16.0) L 10/07/18 05:30 Hct 22 % (35-47) L 10/07/18 05:30 MCV 86 fL (80-97) 10/07/18 05:30 MCH 30 pg (27-31) 10/07/18 05:30 MCHC 34 g/dl (31-36) 10/07/18 05:30 RDW 14 % (10.5-15) 10/07/18 05:30 Plt Count 381 10^3/ul (150-450) 10/07/18 05:30 MPV 7.9 fL (7.4-10.4) 10/07/18 05:30 Neut % (Auto) 66.6 % 10/05/18 05:35 Lymph % (Auto) 16.9 % 10/05/18 05:35 [place] % (Auto) 13.4 % 10/05/18 05:35 Eos % (Auto) 2.2 % 10/05/18 05:35 Baso % (Auto) 0.9 % 10/05/18 05:35 Absolute Neuts (auto) 6.0 10^3/ul (1.5-7.7) 10/05/18 05:35 Absolute Lymphs (auto) 1.5 10^3/ul (1.0-4.8) 10/05/18 05:35 Absolute Monos (auto) 1.2 10^3/ul (0-0.8) H 10/05/18 05:35 Absolute Eos (auto) 0.2 10^3/ul (0-0.6) 10/05/18 05:35 Absolute Basos (auto) 0.1 10^3/ul (0-0.2) 10/05/18 05:35 Absolute Nucleated RBC 0 10^3/ul 10/05/18 05:35 Nucleated RBC % 0 10/05/18 05:35 Haptoglobin 138 mg/dL (30 - 200) 09/28/18 13:39 INR (Anticoag Therapy) 1.01 (0.77-1.02) 10/05/18 05:35 APTT 29.5 seconds (26.0-36.3) 09/22/18 05:51 Sodium 141 mmol/L (135-145) 10/07/18 05:30 Potassium 3.5 mmol/L (3.5-5.0) 10/07/18 05:30 Chloride 106 mmol/L (101-111) 10/07/18 05:30 Carbon Dioxide 28 mmol/L (22-32) 10/07/18 05:30 Anion Gap 7 mmol/L (2-11) 10/07/18 05:30 BUN 16 mg/dL (6-24) 10/07/18 05:30 Creatinine 1.62 mg/dL (0.51-0.95) H 10/07/18 05:30 Est GFR ( Amer) 41.4 (>60) 10/07/18 05:30 Est GFR (Non-Af Amer) 34.2 (>60) 10/07/18 05:30 BUN/Creatinine Ratio 9.9 (8-20) 10/07/18 05:30 Glucose 103 mg/dL (70-100) H 10/07/18 05:30 Lactic Acid 2.0 mmol/L (0.5-2.0) 09/19/18 21:56 Calcium 8.4 mg/dL (8.6-10.3) L 10/07/18 05:30 Phosphorus 4.2 mg/dL (2.5-5.0) 10/07/18 05:30 Magnesium 1.9 mg/dL (1.9-2.7) 10/07/18 05:30 Iron 23 ug/dL (50-212) L 09/28/18 13:39 TIBC 286 mcg/dL (250-450) 09/28/18 13:39 % Saturation 8 % (15-55) L 09/28/18 13:39 Unsat Iron Binding < 271 ug/dL 09/28/18 13:39 Transferrin 204 mg/dL (203-362) 09/28/18 13:39 Erythropoietin 12.6 mIU/mL (2.6 - 18.5) 09/28/18 13:39 Ferritin 126.9 ng/mL (11-307) 09/28/18 13:39 Total Bilirubin 0.30 mg/dL (0.2-1.0) 10/07/18 05:30 Direct Bilirubin 0.10 mg/dL (0.03-0.18) 09/28/18 06:15 Indirect Bilirubin 0.3 mg/dL (0.3-1.0) 09/28/18 06:15 AST 17 U/L (13-39) 10/07/18 05:30 ALT 4 U/L (7-52) L 10/07/18 05:30 Alkaline Phosphatase 111 U/L (34-104) H 10/07/18 05:30 Lactate Dehydrogenase 524 U/L (140-271) H 09/28/18 13:39 Total Creatine Kinase 575 U/L (10-223) H 10/01/18 05:34 C-Reactive Protein 79.60 mg/L (<8.01) H 10/04/18 05:15 Total Protein 5.4 g/dL (6.4-8.9) L 10/07/18 05:30 Albumin 2.6 g/dL (3.2-5.2) L 10/07/18 05:30 Globulin 2.8 g/dL (2-4) 10/07/18 05:30 Albumin/Globulin Ratio 0.9 (1-3) L 10/07/18 05:30 Vitamin B12 958 pg/mL (180-914) H 09/28/18 13:39 Folate 14.70 ng/mL (>3.99) 09/28/18 13:39 Beta HCG, Quant 4.30 mIU/mL 10/06/18 05:17 Urine Color Yellow 09/26/18 02:43 Urine Appearance Clear 09/26/18 02:43 Urine pH 6.0 (5-9) 09/26/18 02:43 Ur Specific [place] 1.012 (1.010-1.030) 09/26/18 02:43 Urine Protein Negative (Negative) 09/26/18 02:43 Urine Ketones Negative (Negative) 09/26/18 02:43 Urine Blood 3+ (Negative) A 09/26/18 02:43 Urine Nitrate Negative (Negative) 09/26/18 02:43 Urine Bilirubin Negative (Negative) 09/26/18 02:43 Urine Urobilinogen Negative (Negative) 09/26/18 02:43 Ur Leukocyte Esterase Negative (Negative) 09/26/18 02:43 Urine WBC (Auto) 1+(6-10/hpf) (Absent) A 09/26/18 02:43 Urine RBC (Auto) 2+(6-10/hpf) (Absent) A 09/26/18 02:43 Ur Squamous Epith Cells Present (Absent) A 09/26/18 02:43 Urine Bacteria Absent (Absent) 09/26/18 02:43 Ur Creatinine Concen 96.33 mg/dL 09/26/18 02:43 U Sodium Concentration 42 mmol/L 09/26/18 02:43 Urine Glucose Negative (Negative) 09/26/18 02:43 Vancomycin Trough 15.6 mcg/mL 09/25/18 06:06 Random Vancomycin 17.5 mcg/mL 10/04/18 05:15 Hepatitis A IgM Ab Nonreactive (Nonreactive) 09/20/18 15:10 Hep Bs Antigen Nonreactive (Nonreactive) 09/20/18 15:10 Hep B Core IgM Ab Nonreactive (Nonreactive) 09/20/18 15:10 Hepatitis C Antibody High reactive (Nonreactive) A 09/20/18 15:10 Hepatitis C Ab Index > 11.0 Index 09/20/18 15:10 Hepatitis C RNA Quant Undetected IU/mL (Undetected) 10/01/18 05:34 HIV 1&2 Antibody Nonreactive (Nonreactive) 10/01/18 05:34 Blood Type B Positive 10/06/18 05:17 Antibody Screen Negative 10/06/18 05:17 Crossmatch See Detail 10/06/18 05:17 Objective: A&Ox3, NAD, wound vac and splint intact, no sensation in toes. No motion in toes or ankle. Assessment: POD #2 repeat I&D with partial wound closure and wound VAC placement Plan: NWB LLE Repeat I&D with possible wound closure on Tuesday.
[2018-10-07] MEDS: Gabapentin CAP(*) 100 MG PO SCH ×2 (14:31→21:42)
--- NOTE | 2018-10-07 14:33 | PN ---
Subjective Date of Service: 10/07/18 Interval History: Pt seen and examined. Meds and labs reviewed. CC: Pain needing every 4 hours of IV Dilaudid ordered as PRN. ROS: Denied MADSEN/dizziness, F/C, N/V, CP, SOB, increased cough, sputum production , abd pain, diarrhea, constipation, dysuria, myalgias, arthralgias, throat pain , and new skin lesions. The rest of the 14 point ROS are unremarkable. PHYSICAL EXAM: GEN APPEARANCE: Awake, not in acute distress HEENT: NC/AT, PERRLA, moist oral mucosa, (-) throat erythema NECK: Soft, supple, (-) cervical LAD, (-)JVD HEART: S1S2 WNL, RRR, No MRG CHEST: CTA, BL, GAE, No W/R/R ABD: Soft, ND/NT, NABS 4x Q EXT: No C/C/LLE, cdi, no sensation on toes, and unable to move them actively SKIN: Warm to touch PSYCH: No active psychosis, hallucinations, depression, SI/HI Family History: Unchanged from Admission Social History: Unchanged from Admission Past Medical History: Unchanged from Admission Objective Active Medications: Acetaminophen (Tylenol Tab*) 650 mg PO Q6H PRN PRN Reason: PAIN OR TEMPERATURE Last Admin: 09/29/18 12:44 Dose: 650 mg Acetaminophen (Tylenol Tab*) 975 mg PO BID [facility] Last Admin: 10/07/18 12:26 Dose: Not Given Ascorbic Acid (Vitamin C Tab*) 500 mg PO DAILY [facility] Last Admin: 10/07/18 10:12 Dose: 500 mg Cetirizine HCl (Zyrtec*) 10 mg PO DAILY [facility] Last Admin: 10/07/18 10:10 Dose: 10 mg Diphenhydramine HCl (Benadryl Iv*) 25 mg IV Q6H PRN PRN Reason: itching Diphenhydramine HCl (Benadryl Po*) 25 mg PO Q4H PRN PRN Reason: ITCHING Last Admin: 09/20/18 19:55 Dose: 25 mg Docusate Sodium (Colace Cap*) 100 mg PO BID [facility] Last Admin: 10/07/18 10:10 Dose: 100 mg Ferrous Sulfate (Ferrous Sulfate Tab*) 325 mg PO DAILY [facility] Last Admin: 10/07/18 10:11 Dose: 325 mg Folic Acid (Folvite Tab*) 1 mg PO DAILY [facility] Last Admin: 10/07/18 10:10 Dose: 1 mg Gabapentin (Neurontin Cap(*)) 100 mg PO TID [facility] Heparin Sodium (Porcine) (Heparin Flush Picc/Ml/Cvc(*)) 1 - 3 ml FLUSH 0600, 1800 [facility]; Protocol Last Admin: 10/07/18 06:24 Dose: 1 ml Hydromorphone HCl (Dilaudid Inj1s*) 1 mg IV SLOW PU Q4H PRN PRN Reason: PAIN Last Admin: 10/07/18 10:39 Dose: 1 mg Lactated Ringer's (Lactated Ringers 1000 Ml Bag*) 1,000 mls @ 125 mls/hr IV PER RATE [facility] Last Admin: 10/03/18 06:26 Dose: 125 mls/hr Cefazolin Sodium 500 mg/ (Sodium Chloride) 50 mls @ 200 mls/hr IVPB Q12H [facility] Last Admin: 10/07/18 01:06 Dose: 200 mls/hr Lidocaine (Xylocaine 2% Viscous*) 15 ml SWISH SPIT TID PRN PRN Reason: PAIN Last Admin: 09/24/18 08:29 Dose: 15 ml Lorazepam (Ativan Tab(*)) 1 mg PO Q6H PRN PRN Reason: ANXIETY Last Admin: 10/02/18 19:34 Dose: 1 mg Montelukast Sodium (Singulair Tab*) 10 mg PO DAILY [facility] Last Admin: 10/07/18 10:12 Dose: 10 mg Morphine Sulfate (Morphine Inj ((Syringe))*) 2 mg IV Q2H PRN PRN Reason: PAIN Last Admin: 10/05/18 11:10 Dose: 2 mg Multivitamins/Minerals (Theragran/Minerals Tab*) 1 tab PO DAILY [facility] Last Admin: 10/07/18 10:12 Dose: 1 tab Ondansetron HCl (Zofran Inj*) 4 mg IV Q6H PRN PRN Reason: nausea Oxycodone HCl (Roxycodone Tab*) 10 mg PO Q4H PRN PRN Reason: PAIN - SEVERE Last Admin: 10/07/18 08:46 Dose: 10 mg Oxycodone/Acetaminophen (Percocet 5/325 Tab*) 1 tab PO Q4H PRN PRN Reason: PAIN Oxycodone/Acetaminophen (Percocet 5/325 Tab*) 2 tab PO Q4H PRN PRN Reason: PAIN Last Admin: 10/07/18 12:27 Dose: 2 tab Pantoprazole Sodium (Protonix Tab *) 40 mg PO DAILY [facility] Last Admin: 10/07/18 10:10 Dose: 40 mg Senna (Senokot Tab*) 1 tab PO BEDTIME PRN PRN Reason: CONSTIPATION Thiamine HCl (Vitamin B-1 Tab*) 100 mg PO DAILY [facility] Last Admin: 10/07/18 10:13 Dose: 100 mg Venlafaxine HCl (Effexor Xr Cap*) 150 mg PO DAILY [facility] Last Admin: 10/07/18 10:09 Dose: 150 mg Vital Signs - 8 hr 10/07/18 10/07/18 10/07/18 08:00 08:11 08:46 Temperature 98.3 F Pulse Rate 76 Respiratory 18 16 18 Rate Blood Pressure 118/75 (mmHg) O2 Sat by Pulse 96 96 Oximetry 10/07/18 10/07/18 10:39 12:27 Temperature Pulse Rate Respiratory 18 18 Rate Blood Pressure (mmHg) O2 Sat by Pulse Oximetry Oxygen Devices in Use Now: None Result Diagrams: 10/07/18 05:30 10/07/18 05:30 Additional Lab and Data: Laboratory Tests 09/30/18 09/30/18 10/01/18 05:49 05:49 05:34 WBC 14.5 H 11.4 H Hgb 7.5 L 7.4 L Hct 22 L 22 L Total Creatine Kinase 689 H Random Vancomycin 10/01/18 05:34 WBC Hgb Hct Total Creatine Kinase 575 H Random Vancomycin 14.3 Microbiology and Other Data: Microbiology 10/02/18 15:00 Leg Left Gram Stain - Final 09/26/18 02:43 Urine Urine Culture - Final No Growth (<1,000 CFU/mL) 09/25/18 14:30 Wound - Left Leg Anaerobic Culture - Final No Growth Day 4 09/25/18 14:30 Wound Anaerobic Culture - Final No Growth Day 4 09/25/18 14:30 Leg Left Gram Stain - Final 09/25/18 14:30 Leg Left Wound Culture - Final No Growth Day 4 09/25/18 14:30 Leg Left Gram Stain - Final 09/25/18 14:30 Leg Left Wound Culture - Final No Growth Day 4 09/21/18 06:00 Urine Urine Culture - Final No Growth (<1,000 CFU/mL) 10/02/18 15:00 No Source Provided Anaerobic Culture - Preliminary No Growth Day 1 10/02/18 15:00 Leg Left Wound Culture - Preliminary No Growth Day 1 Diagnostic Imaging: CARDIAC ECHO: Conclusions Global left ventricular wall motion and contractility are within normal limits. There is normal left ventricular systolic function. The estimated ejection fraction is 55-60%. There is no evidence of aortic stenosis. There is mild mitral regurgitation. There is mild tricuspid regurgitation. There is no significant pericardial effusion. RENAL US: Patient Name: EDD LOVING Medical Record#: [id number] Ordering Physician: Radha Ruvalcaba MD Acct.#: [id number] : 1970 Age: 47 Sex: F Location: SURGICAL STAY UNIT Exam Date: 09/20/181746 ADM Status: ADM IN Order Information: US RENAL COMPLETE Accession Number: [id number] CPT: 43845 EXAM: US Retroperitoneal Limited, Kidneys EXAM DATE/TIME: 09/20/2018 6:15 PM CLINICAL HISTORY: 47 years old, female; Signs and symptoms; Other: [place]lig[place]; Additional info: Re: Arf TECHNIQUE: Real-time ultrasound of the retroperitoneum with image documentation. Examination was focused on the kidneys. COMPARISON: No relevant prior studies available. FINDINGS: Right kidney: Right kidney measures 12.9 x 6.2 x 6.4 cm. No hydronephrosis, stone or mass. Left kidney: Left kidney measures 11.3 x 6.4 x 6.3 cm. Bladder: The bladder is not evaluated. IMPRESSION: No hydronephrosis, stone or mass. Assess/Plan/Problems-Billing Assessment: This is a 47 yo woman with h/o polysubstance abuse, anxiety/depression, was on Suboxone and Clonazepam presented with left leg compartment syndrome after syncope and collapse on 09/18 potential overdose. - Patient Problems (1) Compartment syndrome Current Visit: Yes Status: Acute Priority: High Code(s): T79.A0XA - COMPARTMENT SYNDROME, UNSPECIFIED, INITIAL ENCOUNTER SNOMED Code(s): 483454650 Comment: - Appears initiated by trauma during syncope/overdose, patient has poor recollection of events -S/P LLE irrigation and debridement, w complex wound closure on proximal area w/ wound VAC placement; plan is to close remaining sx wound on Tuesday - s/p fasciotomy and debridement 09/20/18, 09/21/18, 09/25/18, 09/28/18, and 10/02/18 - Defer to orthopedics for continued management, preservation of limb and hopefully avoiding amputation -Due to pain requirements, ordered Gabapentin for synergy along with Tylenol BID in addition to PRN, not to exceed 4g/day; will defer further titration of pain meds/narcotics w/ortho; pt has hx of substance abuse (2) Acute tubular necrosis Current Visit: Yes Status: Acute Priority: High Code(s): N17.0 - ACUTE KIDNEY FAILURE WITH TUBULAR NECROSIS SNOMED Code(s): 25858960 Comment: -Continues to improve -Continue watchful waiting (3) Anemia Current Visit: Yes Status: Acute Priority: Medium Code(s): D64.9 - ANEMIA , UNSPECIFIED SNOMED Code(s): 566854168 Comment: -Transfused 1 unit of PRBC yesterday -Agree w/multifactorial cause and per Iron studies, likely due to ELOY + AOCD -Continue Ferrous sulfate and Vit C -Renal disease, infection, and surgery contributing -Continue watchful waiting (4) DVT prophylaxis Current Visit: Yes Status: Acute Priority: Low Code(s): [id number] - SNOMED Code(s): 113325683 Comment: -Defer w/ortho and will defer when they feel the best time would be to be placed back on prophylaxis perioperatively -D/W Bernie Status and Disposition: -Defer w/Orthopedics in both disposition and timing of DVT prophylaxis post planned Sx; if no risk for bleeding per observation in OR would suggest to restart Heparin SQ 3-4 hours post op, but will defer.
[2018-10-08] MEDS: ceFAZolin 500 MG VIAL(*) 500 MG in NS 0.9% 50 ML* 50 ML IVPB SCH ×2 (01:46→15:10)
[2018-10-08] MEDS: HYDROmorphone INJ1* 1 MG/ML SYRINGE IV SLOW PU PRN ×5 (03:46→21:02)
[2018-10-08 05:42] LABS: ABS Basophils 0.1 10^3/ul (0-0.2); ABS Eosinophils 0.2 10^3/ul (0-0.6); ABS Lymphocytes 1.5 10^3/ul (1.0-4.8); ABS Neutrophils 4.2 10^3/ul (1.5-7.7); ABS Nucleated RBC 0 10^3/ul; Eosinophil % 2.9 %; Hematocrit 23 % (35-47); Lymphocyte % 20.9 %; Mean Corpuscular HGB Conc 35 g/dl (31-36); Mean Corpuscular Hemoglobin 30 pg (27-31); Mean Corpuscular Volume 87 fL (80-97); Mean Platelet Volume 7.8 fL (7.4-10.4); Nucleated Red Blood Cells % 0.1; Platelet Count 361 10^3/ul (150-450); Red Blood Count 2.68 10^6/ul (4.00-5.40); Red Cell Distribution Width 14 % (10.5-15); White Blood Count 7.1 10^3/ul (3.5-10.8)
[2018-10-08] MEDS: oxyCODONE/Acetamin 5/325 MG* TAB PO PRN ×3 (05:42→18:20)
--- NOTE | 2018-10-08 08:32 | PN ---
Subjective Date of Service: 10/08/18 Interval History: HD #20 on 10/08 48 yo F with PMH PSA and left leg wound and rhabdo s/p compartment syndrome, 4 compartment fasciotomies, and multiple I&Ds. Resolving MARTÍN. Overnight, no acute events, vitasl signs stable, afebrile, normotensive satting well on RA. This mornings labs CBC only with mild stable anemia, BMP 10/07 with Cr improved to 1.62, making good urine, voiding freely. This morning seen w parents at bedside. In good spiritis, feeling well, tolerable pain in L leg with no complaints. Plan to return to OR tomorrow. Discussed reassuing kidney findings, ROS neg for CP, SOB, GI/ complaints Family History: Unchanged from Admission Social History: Unchanged from Admission Past Medical History: Unchanged from Admission Objective Active Medications: Acetaminophen (Tylenol Tab*) 650 mg PO Q6H PRN PRN Reason: PAIN OR TEMPERATURE Last Admin: 09/29/18 12:44 Dose: 650 mg Acetaminophen (Tylenol Tab*) 975 mg PO BID [facility] Last Admin: 10/07/18 21:41 Dose: 975 mg Ascorbic Acid (Vitamin C Tab*) 500 mg PO DAILY [facility] Last Admin: 10/07/18 10:12 Dose: 500 mg Cetirizine HCl (Zyrtec*) 10 mg PO DAILY [facility] Last Admin: 10/07/18 10:10 Dose: 10 mg Diphenhydramine HCl (Benadryl Iv*) 25 mg IV Q6H PRN PRN Reason: itching Diphenhydramine HCl (Benadryl Po*) 25 mg PO Q4H PRN PRN Reason: ITCHING Last Admin: 09/20/18 19:55 Dose: 25 mg Docusate Sodium (Colace Cap*) 100 mg PO BID [facility] Last Admin: 10/07/18 21:41 Dose: 100 mg Ferrous Sulfate (Ferrous Sulfate Tab*) 325 mg PO DAILY [facility] Last Admin: 10/07/18 10:11 Dose: 325 mg Folic Acid (Folvite Tab*) 1 mg PO DAILY [facility] Last Admin: 10/07/18 10:10 Dose: 1 mg Gabapentin (Neurontin Cap(*)) 100 mg PO TID [facility] Last Admin: 10/07/18 21:42 Dose: 100 mg Heparin Sodium (Porcine) (Heparin Flush Picc/Ml/Cvc(*)) 1 - 3 ml FLUSH 0600, 1800 [facility]; Protocol Last Admin: 10/08/18 05:30 Dose: 2 ml Hydromorphone HCl (Dilaudid Inj1s*) 1 mg IV SLOW PU Q4H PRN PRN Reason: PAIN Last Admin: 10/08/18 07:59 Dose: 1 mg Lactated Ringer's (Lactated Ringers 1000 Ml Bag*) 1,000 mls @ 125 mls/hr IV PER RATE [facility] Last Admin: 10/03/18 06:26 Dose: 125 mls/hr Cefazolin Sodium 500 mg/ (Sodium Chloride) 50 mls @ 200 mls/hr IVPB Q12H [facility] Last Admin: 10/08/18 01:46 Dose: 200 mls/hr Lidocaine (Xylocaine 2% Viscous*) 15 ml SWISH SPIT TID PRN PRN Reason: PAIN Last Admin: 09/24/18 08:29 Dose: 15 ml Lorazepam (Ativan Tab(*)) 1 mg PO Q6H PRN PRN Reason: ANXIETY Last Admin: 10/02/18 19:34 Dose: 1 mg Montelukast Sodium (Singulair Tab*) 10 mg PO DAILY [facility] Last Admin: 10/07/18 10:12 Dose: 10 mg Morphine Sulfate (Morphine Inj ((Syringe))*) 2 mg IV Q2H PRN PRN Reason: PAIN Last Admin: 10/05/18 11:10 Dose: 2 mg Multivitamins/Minerals (Theragran/Minerals Tab*) 1 tab PO DAILY [facility] Last Admin: 10/07/18 10:12 Dose: 1 tab Ondansetron HCl (Zofran Inj*) 4 mg IV Q6H PRN PRN Reason: nausea Oxycodone HCl (Roxycodone Tab*) 10 mg PO Q4H PRN PRN Reason: PAIN - SEVERE Last Admin: 10/07/18 17:40 Dose: 10 mg Oxycodone/Acetaminophen (Percocet 5/325 Tab*) 1 tab PO Q4H PRN PRN Reason: PAIN Oxycodone/Acetaminophen (Percocet 5/325 Tab*) 2 tab PO Q4H PRN PRN Reason: PAIN Last Admin: 10/08/18 05:42 Dose: 2 tab Pantoprazole Sodium (Protonix Tab *) 40 mg PO DAILY [facility] Last Admin: 10/07/18 10:10 Dose: 40 mg Senna (Senokot Tab*) 1 tab PO BEDTIME PRN PRN Reason: CONSTIPATION Thiamine HCl (Vitamin B-1 Tab*) 100 mg PO DAILY [facility] Last Admin: 10/07/18 10:13 Dose: 100 mg Venlafaxine HCl (Effexor Xr Cap*) 150 mg PO DAILY [facility] Last Admin: 10/07/18 10:09 Dose: 150 mg Vital Signs - 8 hr 10/08/18 10/08/18 10/08/18 01:50 01:51 01:52 Temperature Pulse Rate Respiratory 17 17 17 Rate Blood Pressure (mmHg) O2 Sat by Pulse Oximetry 10/08/18 10/08/18 10/08/18 03:40 03:46 05:31 Temperature 98.4 F Pulse Rate 80 Respiratory 17 20 19 Rate Blood Pressure 129/74 (mmHg) O2 Sat by Pulse 93 Oximetry 10/08/18 10/08/18 05:42 07:59 Temperature Pulse Rate Respiratory 19 18 Rate Blood Pressure (mmHg) O2 Sat by Pulse Oximetry Oxygen Devices in Use Now: None Appearance: Well woman in bed in NAD Ears/Nose/Mouth/Throat: NL Teeth, Lips, Gums, Mucous Membranes Moist Neck: NL Appearance and Movements; NL JVP Respiratory: Symmetrical Chest Expansion and Respiratory Effort, Clear to Auscultation Cardiovascular: NL Sounds; No Murmurs; No JVD, RRR Abdominal: NL Sounds; No Tenderness; No Distention, No Hepatosplenomegaly Lymphatic: No Cervical Adenopathy Extremities: No Edema, - - L lower leg wrapped with wound vac in place Skin: No Rash or Ulcers Neurological: Alert and Oriented x 3 Result Diagrams: 10/08/18 05:30 10/07/18 05:30 Additional Lab and Data: Microbiology and Other Data: Microbiology 10/02/18 15:00 Leg Left Gram Stain - Final 09/26/18 02:43 Urine Urine Culture - Final No Growth (<1,000 CFU/mL) 09/25/18 14:30 Wound - Left Leg Anaerobic Culture - Final No Growth Day 4 09/25/18 14:30 Wound Anaerobic Culture - Final No Growth Day 4 09/25/18 14:30 Leg Left Gram Stain - Final 09/25/18 14:30 Leg Left Wound Culture - Final No Growth Day 4 09/25/18 14:30 Leg Left Gram Stain - Final 09/25/18 14:30 Leg Left Wound Culture - Final No Growth Day 4 09/21/18 06:00 Urine Urine Culture - Final No Growth (<1,000 CFU/mL) 10/02/18 15:00 No Source Provided Anaerobic Culture - Preliminary No Growth Day 1 10/02/18 15:00 Leg Left Wound Culture - Preliminary No Growth Day 1 Diagnostic Imaging: CARDIAC ECHO: Global left ventricular wall motion and contractility are within normal limits. There is normal left ventricular systolic function. The estimated ejection fraction is 55-60%. There is no evidence of aortic stenosis. There is mild mitral regurgitation. There is mild tricuspid regurgitation. There is no significant pericardial effusion. RENAL US: No hydronephrosis, stone or mass. Assess/Plan/Problems-Billing Assessment: 47 yo F with PMH polysubstance abuse (on suboxone/clonazepam), anxiety/ depression, presented with left leg compartment syndrome after syncope and collapse on 09/18 potential overdose. s/p 4 compartment fasciotomies, and multiple I&Ds. Resolving MARTÍN. - Patient Problems (1) Compartment syndrome Current Visit: Yes Status: Acute Priority: High Code(s): T79.A0XA - COMPARTMENT SYNDROME, UNSPECIFIED, INITIAL ENCOUNTER SNOMED Code(s): 315517222 Comment: - Appears initiated by trauma during syncope/overdose, patient has poor recollection of events -S/P LLE irrigation and debridement, w complex wound closure on proximal area w/ wound VAC placement; plan is to close remaining sx wound on Tuesday - s/p fasciotomy and debridement 09/20/18, 09/21/18, 09/25/18, 09/28/18, 10/02/18, , anticipate 10/09 - Defer to orthopedics for continued management, preservation of limb and hopefully avoiding amputation -Due to pain requirements, ordered Gabapentin for synergy along with Tylenol BID in addition to PRN, not to exceed 4g/day; will defer further titration of pain meds/narcotics w/ortho; pt has hx of substance abuse (2) Rhabdomyolysis Current Visit: Yes Status: Acute Code(s): M62.82 - RHABDOMYOLYSIS SNOMED Code(s): 477216170 Comment: - CPK almost 70K at admission - down to <3K , resolving kidney fxn (3) Acute renal failure Current Visit: Yes Status: Acute Comment: - Due to severe rhabdo - Renal US unremarkable - Serum creatinine daily - appears to be having post ATN diuesis, Cr resolving (4) Anemia Current Visit: Yes Status: Acute Priority: Medium Code(s): D64.9 - ANEMIA , UNSPECIFIED SNOMED Code(s): 579888681 Comment: -Transfused 1 unit of PRBC 10/06 -Agree w/multifactorial cause and per Iron studies, likely due to ELOY + AOCD -Continue Ferrous sulfate and Vit C -Renal disease, infection, and surgery contributing -Continue watchful waiting (5) Cellulitis Current Visit: Yes Status: Acute Code(s): L03.90 - CELLULITIS, UNSPECIFIED SNOMED Code(s): 085115035 Comment: - LLE, knee area-Resolved, given Vanco 09/23-09/29 - No abx now 10/08 (6) Polysubstance (including opioids) dependence w/o physiol dependence Current Visit: Yes Status: Acute Code(s): F19.20 - OTHER PSYCHOACTIVE SUBSTANCE DEPENDENCE, UNCOMPLICATED SNOMED Code(s): 49817263 Comment: - Has been on suboxone at [facility] - Suboxone on hold while inpatient and acutely ill - Pain control and remains on Lorazepam (7) Anxiety and depression Current Visit: Yes Status: Acute Code(s): F41.9 - ANXIETY DISORDER, UNSPECIFIED; F32.9 - MAJOR DEPRESSIVE DISORDER, SINGLE EPISODE, UNSPECIFIED SNOMED Code(s): 60918024 Comment: - On Effexor and ativan - supportive care provided (8) DVT prophylaxis Current Visit: Yes Status: Acute Priority: Low Code(s): IVZ5570 - SNOMED Code(s): 503300287 Comment: -Defer w/ortho and will defer when they feel the best time would be to be placed back on prophylaxis perioperatively -Would suggest SHQ Status and Disposition: -Defer w/Orthopedics in both disposition and timing of DVT prophylaxis post planned Sx; if no risk for bleeding per observation in OR would suggest to restart Heparin SQ 3-4 hours post op, but will defer.
[2018-10-08] MEDS: Acetaminophen TAB* 325 MG PO SCH ×2 (10:58→21:02)
[2018-10-08] MEDS: Ascorbic Acid TAB* 500 MG PO SCH (10:59)
[2018-10-08] MEDS: Gabapentin CAP(*) 100 MG PO SCH ×3 (11:00→21:02)
[2018-10-08] MEDS: Montelukast Sodium TAB* 10 MG PO SCH (11:00)
[2018-10-08] MEDS: Venlafaxine EXT RELEASE CAP* 75 MG PO SCH (11:01)
[2018-10-08] MEDS: Thiamine TAB* 100 MG TAB PO SCH (11:01)
[2018-10-08] MEDS: Docusate CAP* 100 MG PO SCH ×2 (11:02→21:02)
[2018-10-08] MEDS: Cetirizine* 10 MG TAB PO SCH (11:02)
[2018-10-08] MEDS: Pantoprazole TAB * 40 MG TAB PO SCH (11:02)
[2018-10-08] MEDS: Ferrous Sulfate TAB* 325 MG PO SCH (11:03)
[2018-10-08] MEDS: Multivitamins/Minerals TAB PO SCH (11:03)
[2018-10-08] MEDS: Folic Acid TAB* 1 MG PO SCH (11:04)
--- NOTE | 2018-10-08 13:40 | PN ---
Progress Note - Progress Note Date of Service: 10/08/18 SOAP: Subjective: Pt seen at bedside. States that she feels tingling in her heel occasionally. Pain is well controlled. Denies CP, SOB Vital Signs: Temp Pulse Resp BP Pulse Ox 98.2 F 79 18 137/78 97 10/08/18 07:34 10/08/18 07:34 10/08/18 12:07 10/08/18 07:34 10/08/18 07:34 Laboratory Last Values WBC 7.1 10^3/ul (3.5-10.8) 10/08/18 05:30 RBC 2.68 10^6/ul (4.00-5.40) L 10/08/18 05:30 Hgb 8.0 g/dl (12.0-16.0) L 10/08/18 05:30 Hct 23 % (35-47) L 10/08/18 05:30 MCV 87 fL (80-97) 10/08/18 05:30 MCH 30 pg (27-31) 10/08/18 05:30 MCHC 35 g/dl (31-36) 10/08/18 05:30 RDW 14 % (10.5-15) 10/08/18 05:30 Plt Count 361 10^3/ul (150-450) 10/08/18 05:30 MPV 7.8 fL (7.4-10.4) 10/08/18 05:30 Neut % (Auto) 59.6 % 10/08/18 05:30 Lymph % (Auto) 20.9 % 10/08/18 05:30 [place] % (Auto) 14.7 % 10/08/18 05:30 Eos % (Auto) 2.9 % 10/08/18 05:30 Baso % (Auto) 1.9 % 10/08/18 05:30 Absolute Neuts (auto) 4.2 10^3/ul (1.5-7.7) 10/08/18 05:30 Absolute Lymphs (auto) 1.5 10^3/ul (1.0-4.8) 10/08/18 05:30 Absolute Monos (auto) 1.0 10^3/ul (0-0.8) H 10/08/18 05:30 Absolute Eos (auto) 0.2 10^3/ul (0-0.6) 10/08/18 05:30 Absolute Basos (auto) 0.1 10^3/ul (0-0.2) 10/08/18 05:30 Absolute Nucleated RBC 0 10^3/ul 10/08/18 05:30 Nucleated RBC % 0.1 10/08/18 05:30 Haptoglobin 138 mg/dL (30 - 200) 09/28/18 13:39 INR (Anticoag Therapy) 1.01 (0.77-1.02) 10/05/18 05:35 APTT 29.5 seconds (26.0-36.3) 09/22/18 05:51 Sodium 141 mmol/L (135-145) 10/07/18 05:30 Potassium 3.5 mmol/L (3.5-5.0) 10/07/18 05:30 Chloride 106 mmol/L (101-111) 10/07/18 05:30 Carbon Dioxide 28 mmol/L (22-32) 10/07/18 05:30 Anion Gap 7 mmol/L (2-11) 10/07/18 05:30 BUN 16 mg/dL (6-24) 10/07/18 05:30 Creatinine 1.62 mg/dL (0.51-0.95) H 10/07/18 05:30 Est GFR ( Amer) 41.4 (>60) 10/07/18 05:30 Est GFR (Non-Af Amer) 34.2 (>60) 10/07/18 05:30 BUN/Creatinine Ratio 9.9 (8-20) 10/07/18 05:30 Glucose 103 mg/dL (70-100) H 10/07/18 05:30 Lactic Acid 2.0 mmol/L (0.5-2.0) 09/19/18 21:56 Calcium 8.4 mg/dL (8.6-10.3) L 10/07/18 05:30 Phosphorus 4.2 mg/dL (2.5-5.0) 10/07/18 05:30 Magnesium 1.9 mg/dL (1.9-2.7) 10/07/18 05:30 Iron 23 ug/dL (50-212) L 09/28/18 13:39 TIBC 286 mcg/dL (250-450) 09/28/18 13:39 % Saturation 8 % (15-55) L 09/28/18 13:39 Unsat Iron Binding < 271 ug/dL 09/28/18 13:39 Transferrin 204 mg/dL (203-362) 09/28/18 13:39 Erythropoietin 12.6 mIU/mL (2.6 - 18.5) 09/28/18 13:39 Ferritin 126.9 ng/mL (11-307) 09/28/18 13:39 Total Bilirubin 0.30 mg/dL (0.2-1.0) 10/07/18 05:30 Direct Bilirubin 0.10 mg/dL (0.03-0.18) 09/28/18 06:15 Indirect Bilirubin 0.3 mg/dL (0.3-1.0) 09/28/18 06:15 AST 17 U/L (13-39) 10/07/18 05:30 ALT 4 U/L (7-52) L 10/07/18 05:30 Alkaline Phosphatase 111 U/L (34-104) H 10/07/18 05:30 Lactate Dehydrogenase 524 U/L (140-271) H 09/28/18 13:39 Total Creatine Kinase 575 U/L (10-223) H 10/01/18 05:34 C-Reactive Protein 79.60 mg/L (<8.01) H 10/04/18 05:15 Total Protein 5.4 g/dL (6.4-8.9) L 10/07/18 05:30 Albumin 2.6 g/dL (3.2-5.2) L 10/07/18 05:30 Globulin 2.8 g/dL (2-4) 10/07/18 05:30 Albumin/Globulin Ratio 0.9 (1-3) L 10/07/18 05:30 Vitamin B12 958 pg/mL (180-914) H 09/28/18 13:39 Folate 14.70 ng/mL (>3.99) 09/28/18 13:39 Beta HCG, Quant 4.30 mIU/mL 10/06/18 05:17 Urine Color Yellow 09/26/18 02:43 Urine Appearance Clear 09/26/18 02:43 Urine pH 6.0 (5-9) 09/26/18 02:43 Ur Specific [place] 1.012 (1.010-1.030) 09/26/18 02:43 Urine Protein Negative (Negative) 09/26/18 02:43 Urine Ketones Negative (Negative) 09/26/18 02:43 Urine Blood 3+ (Negative) A 09/26/18 02:43 Urine Nitrate Negative (Negative) 09/26/18 02:43 Urine Bilirubin Negative (Negative) 09/26/18 02:43 Urine Urobilinogen Negative (Negative) 09/26/18 02:43 Ur Leukocyte Esterase Negative (Negative) 09/26/18 02:43 Urine WBC (Auto) 1+(6-10/hpf) (Absent) A 09/26/18 02:43 Urine RBC (Auto) 2+(6-10/hpf) (Absent) A 09/26/18 02:43 Ur Squamous Epith Cells Present (Absent) A 09/26/18 02:43 Urine Bacteria Absent (Absent) 09/26/18 02:43 Ur Creatinine Concen 96.33 mg/dL 09/26/18 02:43 U Sodium Concentration 42 mmol/L 09/26/18 02:43 Urine Glucose Negative (Negative) 09/26/18 02:43 Vancomycin Trough 15.6 mcg/mL 09/25/18 06:06 Random Vancomycin 17.5 mcg/mL 10/04/18 05:15 Hepatitis A IgM Ab Nonreactive (Nonreactive) 09/20/18 15:10 Hep Bs Antigen Nonreactive (Nonreactive) 09/20/18 15:10 Hep B Core IgM Ab Nonreactive (Nonreactive) 09/20/18 15:10 Hepatitis C Antibody High reactive (Nonreactive) A 09/20/18 15:10 Hepatitis C Ab Index > 11.0 Index 09/20/18 15:10 Hepatitis C RNA Quant Undetected IU/mL (Undetected) 10/01/18 05:34 HIV 1&2 Antibody Nonreactive (Nonreactive) 10/01/18 05:34 Blood Type B Positive 10/06/18 05:17 Antibody Screen Negative 10/06/18 05:17 Crossmatch See Detail 10/06/18 05:17 Objective: A&Ox3, NAD, Wound VAC intact, Splint intact, No movement in toes or ankle, No sensation in toes Assessment: 48 yo female s/p repeat I&D with wound vac placement POD#3 Plan: LIZA CRUZ Repeat I&D with possible wound closure on Jeff
[2018-10-08] MEDS: oxyCODONE TAB* 5 MG TAB PO PRN (15:06)
[2018-10-08] MEDS: LORazepam TAB(*) 1 MG PO PRN (19:59)
[2018-10-09] MEDS: HYDROmorphone INJ1* 1 MG/ML SYRINGE IV SLOW PU PRN ×6 (01:00→23:56)
[2018-10-09] MEDS: ceFAZolin 500 MG VIAL(*) 500 MG in NS 0.9% 50 ML* 50 ML IVPB SCH ×2 (01:01→15:18)
[2018-10-09] MEDS: Ascorbic Acid TAB* 500 MG PO SCH (07:37)
[2018-10-09] MEDS: Folic Acid TAB* 1 MG PO SCH (07:37)
[2018-10-09] MEDS: Docusate CAP* 100 MG PO SCH ×3 (07:37→20:07)
[2018-10-09] MEDS: Acetaminophen TAB* 325 MG PO SCH ×2 (07:37→20:07)
[2018-10-09] MEDS: Ferrous Sulfate TAB* 325 MG PO SCH (07:37)
[2018-10-09] MEDS: Multivitamins/Minerals TAB PO SCH (07:38)
[2018-10-09] MEDS: Thiamine TAB* 100 MG TAB PO SCH (07:38)
[2018-10-09] MEDS: Gabapentin CAP(*) 100 MG PO SCH ×3 (07:45→20:06)
[2018-10-09] MEDS: oxyCODONE TAB* 5 MG TAB PO PRN ×3 (07:45→22:58)
[2018-10-09] MEDS: Montelukast Sodium TAB* 10 MG PO SCH (07:46)
[2018-10-09] MEDS: Cetirizine* 10 MG TAB PO SCH (07:46)
[2018-10-09] MEDS: Pantoprazole TAB * 40 MG TAB PO SCH (07:46)
[2018-10-09] MEDS: Venlafaxine EXT RELEASE CAP* 75 MG PO SCH (07:46)
[2018-10-09] MEDS ORDERED: Morphine VIAL* 10 MG/ML 1 ML VIAL ONE (12:44)
[2018-10-09] MEDS: Morphine INJ* 2 MG/ML 1 ML SYRINGE (TWO MG - NEW SYRINGE VERSION) IV PRN ×2 (12:57→16:41)
[2018-10-09] MEDS ORDERED: fentaNYL* 50 MCG/ML 2 ML VIAL (100 MCG VIAL) ONE (13:02)
[2018-10-09] MEDS ORDERED: Midazolam* 1 MG/ML 5 ML VIAL (5 MG) ONE (13:02)
[2018-10-09] MEDS ORDERED: HYDROmorphone INJ* 0.5 MG/0.5 ML SYRINGE ONE (13:40)
[2018-10-09] MEDS ORDERED: Propofol* 10 MG/ML 20 ML BTL ONE (14:47)
[2018-10-09] MEDS ORDERED: Ondansetron INJ* 2 MG/ML VIAL ONE (14:47)
[2018-10-09] MEDS ORDERED: Naloxone* 0.4 MG/ML 1 ML VIAL IV PRN (15:05)
[2018-10-09] MEDS ORDERED: DiMENhydriNATE IV* 50 MG/ML VIAL IV PUSH PRN (15:05)
[2018-10-09] MEDS ORDERED: oxyCODONE TAB* 5 MG TAB PO PRN (15:05)
[2018-10-09] MEDS ORDERED: Acetaminophen TAB* 325 MG PO PRN (15:05)
[2018-10-09] MEDS ORDERED: Bupivacaine 0.25% SDV PF* 10 ML VIAL INJ ONE (15:18)
[2018-10-09] MEDS ORDERED: HYDROmorphone INJ1* 1 MG/ML SYRINGE ONE (15:39)
[2018-10-09] MEDS: HYDROmorphone INJ1* 1 MG/ML SYRINGE IV PRN ×2 (15:40→15:57)
[2018-10-09] MEDS: oxyCODONE/Acetamin 5/325 MG* TAB PO PRN ×2 (16:27→20:31)
[2018-10-09] MEDS ORDERED: Lactated Ringers 1000 ML Bag* 1,000 ML IV SCH (16:30)
--- NOTE | 2018-10-09 16:34 | PN ---
Subjective Date of Service: 10/09/18 Interval History: Pain control OK. Appetite OK. No new c/o. Family History: Unchanged from Admission Social History: Unchanged from Admission Past Medical History: Unchanged from Admission Objective Active Medications: Acetaminophen (Tylenol Tab*) 650 mg PO Q6H PRN PRN Reason: PAIN OR TEMPERATURE Last Admin: 09/29/18 12:44 Dose: 650 mg Acetaminophen (Tylenol Tab*) 975 mg PO BID [facility] Last Admin: 10/09/18 07:37 Dose: Not Given Acetaminophen (Tylenol Tab*) 650 mg PO ONCE PRN PRN Reason: PAIN - MILD Ascorbic Acid (Vitamin C Tab*) 500 mg PO DAILY [facility] Last Admin: 10/09/18 07:37 Dose: Not Given Cetirizine HCl (Zyrtec*) 10 mg PO DAILY [facility] Last Admin: 10/09/18 07:46 Dose: 10 mg Dimenhydrinate (Dramamine Iv*) 12.5 mg IV PUSH ONCE PRN PRN Reason: NAUSEA/VOMITING Diphenhydramine HCl (Benadryl Iv*) 25 mg IV Q6H PRN PRN Reason: itching Diphenhydramine HCl (Benadryl Po*) 25 mg PO Q4H PRN PRN Reason: ITCHING Last Admin: 09/20/18 19:55 Dose: 25 mg Docusate Sodium (Colace Cap*) 100 mg PO BID [facility] Last Admin: 10/09/18 07:46 Dose: 100 mg Ferrous Sulfate (Ferrous Sulfate Tab*) 325 mg PO DAILY [facility] Last Admin: 10/09/18 07:37 Dose: Not Given Folic Acid (Folvite Tab*) 1 mg PO DAILY [facility] Last Admin: 10/09/18 07:37 Dose: Not Given Gabapentin (Neurontin Cap(*)) 100 mg PO TID [facility] Last Admin: 10/09/18 15:17 Dose: Not Given Heparin Sodium (Porcine) (Heparin Flush Picc/Ml/Cvc(*)) 1 - 3 ml FLUSH 0600, 1800 [facility]; Protocol Last Admin: 10/09/18 05:14 Dose: 2 ml Hydromorphone HCl (Dilaudid Inj1s*) 1 mg IV SLOW PU Q4H PRN PRN Reason: PAIN Last Admin: 10/09/18 13:41 Dose: 1 mg Hydromorphone HCl (Dilaudid Inj1s*) 0.5 mg IV Q10M PRN PRN Reason: PAIN - SEVERE Last Admin: 10/09/18 15:57 Dose: 0.5 mg Lactated Ringer's (Lactated Ringers 1000 Ml Bag*) 1,000 mls @ 125 mls/hr IV PER RATE [facility] Last Admin: 10/03/18 06:26 Dose: 125 mls/hr Cefazolin Sodium 500 mg/ (Sodium Chloride) 50 mls @ 200 mls/hr IVPB Q12H [facility] Last Admin: 10/09/18 15:18 Dose: Not Given Lidocaine (Xylocaine 2% Viscous*) 15 ml SWISH SPIT TID PRN PRN Reason: PAIN Last Admin: 09/24/18 08:29 Dose: 15 ml Lorazepam (Ativan Tab(*)) 1 mg PO Q6H PRN PRN Reason: ANXIETY Last Admin: 10/08/18 19:59 Dose: 1 mg Montelukast Sodium (Singulair Tab*) 10 mg PO DAILY [facility] Last Admin: 10/09/18 07:46 Dose: 10 mg Morphine Sulfate (Morphine Inj ((Syringe))*) 2 mg IV Q2H PRN PRN Reason: PAIN Last Admin: 10/09/18 12:57 Dose: 2 mg Multivitamins/Minerals (Theragran/Minerals Tab*) 1 tab PO DAILY [facility] Last Admin: 10/09/18 07:38 Dose: Not Given Naloxone HCl (Narcan*) 0.08 mg IV Q2M PRN PRN Reason: severe induced resp depression Ondansetron HCl (Zofran Inj*) 4 mg IV Q6H PRN PRN Reason: nausea Oxycodone HCl (Roxycodone Tab*) 10 mg PO Q4H PRN PRN Reason: PAIN - SEVERE Last Admin: 10/09/18 07:45 Dose: 10 mg Oxycodone HCl (Roxycodone Tab*) 10 mg PO ONCE PRN PRN Reason: SEVERE PAIN Oxycodone/Acetaminophen (Percocet 5/325 Tab*) 1 tab PO Q4H PRN PRN Reason: PAIN Oxycodone/Acetaminophen (Percocet 5/325 Tab*) 2 tab PO Q4H PRN PRN Reason: PAIN Last Admin: 01/28/19 16:27 Dose: 2 tab Pantoprazole Sodium (Protonix Tab *) 40 mg PO DAILY [facility] Last Admin: 10/09/18 07:46 Dose: 40 mg Senna (Senokot Tab*) 1 tab PO BEDTIME PRN PRN Reason: CONSTIPATION Thiamine HCl (Vitamin B-1 Tab*) 100 mg PO DAILY [facility] Last Admin: 10/09/18 07:38 Dose: Not Given Venlafaxine HCl (Effexor Xr Cap*) 150 mg PO DAILY [facility] Last Admin: 10/09/18 07:46 Dose: 150 mg Vital Signs - 8 hr 10/09/18 10/09/18 10/09/18 09:29 09:52 10:23 Temperature Pulse Rate Respiratory 18 18 18 Rate Blood Pressure (mmHg) O2 Sat by Pulse Oximetry 10/09/18 10/09/18 10/09/18 11:15 12:57 13:41 Temperature 98.9 F Pulse Rate 84 Respiratory 16 18 18 Rate Blood Pressure 144/82 (mmHg) O2 Sat by Pulse 97 Oximetry 10/09/18 10/09/18 10/09/18 15:34 15:40 15:41 Temperature 97.7 F Pulse Rate 84 82 Respiratory 16 16 Rate Blood Pressure 147/96 135/98 (mmHg) O2 Sat by Pulse 98 98 Oximetry 10/09/18 10/09/18 10/09/18 15:45 15:46 15:50 Temperature Pulse Rate 82 80 Respiratory 16 Rate Blood Pressure 127/82 144/94 (mmHg) O2 Sat by Pulse 99 98 Oximetry 10/09/18 10/09/18 10/09/18 15:57 16:00 16:01 Temperature Pulse Rate 78 76 Respiratory 16 Rate Blood Pressure 139/95 (mmHg) O2 Sat by Pulse 98 97 Oximetry 10/09/18 16:27 Temperature Pulse Rate Respiratory 18 Rate Blood Pressure (mmHg) O2 Sat by Pulse Oximetry Oxygen Devices in Use Now: None Respiratory: Symmetrical Chest Expansion and Respiratory Effort, Clear to Auscultation, Clear to Percussion Cardiovascular: NL Sounds; No Murmurs; No JVD, RRR, No Edema, - Extremities: - - L leg bandaged Skin: No Rash or Ulcers, No Nodules or Sclerosis, - Neurological: Alert and Oriented x 3, - - L toes are numbe. Cannot wiggle toes. Can flex knee Result Diagrams: 10/08/18 05:30 10/07/18 05:30 Additional Lab and Data: Microbiology and Other Data: Microbiology 10/02/18 15:00 Leg Left Gram Stain - Final 09/26/18 02:43 Urine Urine Culture - Final No Growth (<1,000 CFU/mL) 09/25/18 14:30 Wound - Left Leg Anaerobic Culture - Final No Growth Day 4 09/25/18 14:30 Wound Anaerobic Culture - Final No Growth Day 4 09/25/18 14:30 Leg Left Gram Stain - Final 09/25/18 14:30 Leg Left Wound Culture - Final No Growth Day 4 09/25/18 14:30 Leg Left Gram Stain - Final 09/25/18 14:30 Leg Left Wound Culture - Final No Growth Day 4 09/21/18 06:00 Urine Urine Culture - Final No Growth (<1,000 CFU/mL) 10/02/18 15:00 No Source Provided Anaerobic Culture - Preliminary No Growth Day 1 10/02/18 15:00 Leg Left Wound Culture - Preliminary No Growth Day 1 Diagnostic Imaging: CARDIAC ECHO: Global left ventricular wall motion and contractility are within normal limits. There is normal left ventricular systolic function. The estimated ejection fraction is 55-60%. There is no evidence of aortic stenosis. There is mild mitral regurgitation. There is mild tricuspid regurgitation. There is no significant pericardial effusion. RENAL US: No hydronephrosis, stone or mass. Assess/Plan/Problems-Billing Assessment: 47 yo F with PMH polysubstance abuse (on suboxone/clonazepam), anxiety/ depression, presented with left leg compartment syndrome after syncope and collapse on 09/18 potential overdose. s/p 4 compartment fasciotomies, and multiple I&Ds. Resolving MARTÍN. - Patient Problems (1) Acute renal failure Current Visit: Yes Status: Acute Comment: - Due to severe rhabdo - Renal US unremarkable Much improved. BMP 10/10. (2) Compartment syndrome Current Visit: Yes Status: Acute Priority: High Code(s): T79.A0XA - COMPARTMENT SYNDROME, UNSPECIFIED, INITIAL ENCOUNTER SNOMED Code(s): 109509894 Comment: - Appears initiated by trauma during overdose, patient has poor recollection of events -S/P LLE irrigation and debridement, w complex wound closure on proximal area w/ wound VAC placement; plan is to close remaining sx wound on Tuesday - s/p fasciotomy and debridement 09/20/18, 09/21/18, 09/25/18, 09/28/18, 10/02/18, , 10/09/18. Wound now closed. Cefazolin for 24 hrs post-op. (3) Opiate use Current Visit: No Status: Acute Code(s): F11.90 - OPIOID USE, UNSPECIFIED, UNCOMPLICATED SNOMED Code(s): 000772080 Comment: Noted. (4) Tobacco use disorder Current Visit: No Status: Acute Code(s): F17.200 - NICOTINE DEPENDENCE, UNSPECIFIED, UNCOMPLICATED SNOMED Code(s): 204904279 Comment: Not on NRT. - Cessation encouraged Status and Disposition: -Defer w/Orthopedics in both disposition and timing of DVT prophylaxis post planned Sx; if no risk for bleeding per observation in OR would suggest to restart Heparin SQ 3-4 hours post op, but will defer.
[2018-10-09] MEDS: LORazepam TAB(*) 1 MG PO PRN (20:31)
--- NOTE | 2018-10-09 22:58 | OP ---
Amended report to correct date of operation. DATE OF OPERATION: 10/09/18 - ROOM #338 DATE OF : 74 SURGEON: Jorge Luis Wen MD. EXECUTIVE VICE PRESIDENT BUSINESS DEVELOPMENT: Brittany Hardin PA-C. PRE-OP DIAGNOSIS: Chronic ischemic compartment damage, left leg. POST-OP DIAGNOSIS: Chronic ischemic compartment damage, left leg. OPERATIVE PROCEDURE: Debridement of lateral compartment with secondary closure. DESCRIPTION OF PROCEDURE: The patient was taken to the operating room where we removed the VAC sponge from the lateral compartment. Some of the remaining peroneal musculature at this level appeared sightly ischemic. So, about a 2 cm bridge of this muscle was removed, probably 8 cm in length. Some of the anterior interosseous vasculature was encountered. Some local hemostasis was obtained with a 2-0 Vicryl suture. We irrigated thoroughly. We were then able to close with deep 0-Vicryl sutures and #1 PDS sutures. We placed a compression dressing and a plaster splint. [id number]/[facility] #: [id number] MTDChristelle
[2018-10-10] MEDS: oxyCODONE/Acetamin 5/325 MG* TAB PO PRN ×3 (00:33→13:06)
[2018-10-10] MEDS: ceFAZolin 500 MG VIAL(*) 500 MG in NS 0.9% 50 ML* 50 ML IVPB SCH ×2 (01:33→13:13)
[2018-10-10] MEDS: oxyCODONE TAB* 5 MG TAB PO PRN ×5 (03:38→23:29)
[2018-10-10] MEDS: HYDROmorphone INJ1* 1 MG/ML SYRINGE IV SLOW PU PRN ×5 (03:53→21:02)
[2018-10-10 05:58] LABS: ABS Basophils 0.1 10^3/ul (0-0.2); ABS Eosinophils 0.2 10^3/ul (0-0.6); ABS Lymphocytes 1.4 10^3/ul (1.0-4.8); ABS Monocytes 1.4 10^3/ul (0-0.8); ABS Neutrophils 5.9 10^3/ul (1.5-7.7); ABS Nucleated RBC 0 10^3/ul; Eosinophil % 2.1 %; Hematocrit 21 % (35-47); Hemoglobin 7.3 g/dl (12.0-16.0); Lymphocyte % 15.4 %; Mean Corpuscular HGB Conc 34 g/dl (31-36); Mean Corpuscular Hemoglobin 30 pg (27-31); Mean Corpuscular Volume 88 fL (80-97); Mean Platelet Volume 7.7 fL (7.4-10.4); Nucleated Red Blood Cells % 0.1; Platelet Count 310 10^3/ul (150-450); Red Blood Count 2.43 10^6/ul (4.00-5.40); Red Cell Distribution Width 14 % (10.5-15)
[2018-10-10 06:16] LABS: BUN/Creatinine Ratio 14.5 (8-20); Calcium 8.1 mg/dL (8.6-10.3); EGFR African American 60.3 (>60); EGFR Non-African American 49.8 (>60); Potassium 3.8 mmol/L (3.5-5.0)
[2018-10-10] MEDS: Docusate CAP* 100 MG PO SCH ×2 (08:12→21:01)
[2018-10-10] MEDS: Pantoprazole TAB * 40 MG TAB PO SCH (08:12)
[2018-10-10] MEDS: Venlafaxine EXT RELEASE CAP* 75 MG PO SCH (08:12)
[2018-10-10] MEDS: Cetirizine* 10 MG TAB PO SCH (08:12)
[2018-10-10] MEDS: Montelukast Sodium TAB* 10 MG PO SCH (08:12)
[2018-10-10] MEDS: Gabapentin CAP(*) 100 MG PO SCH ×3 (08:12→21:01)
[2018-10-10] MEDS: Acetaminophen TAB* 325 MG PO SCH ×2 (09:36→21:00)
[2018-10-10] MEDS: Ferrous Sulfate TAB* 325 MG PO SCH (09:51)
[2018-10-10] MEDS: Multivitamins/Minerals TAB PO SCH (09:51)
[2018-10-10] MEDS: Thiamine TAB* 100 MG TAB PO SCH (09:51)
[2018-10-10] MEDS: Ascorbic Acid TAB* 500 MG PO SCH (09:51)
--- NOTE | 2018-10-10 11:45 | PN ---
Progress Note - Progress Note Date of Service: 10/10/18 SOAP: Subjective: [] Pt seen and examined at bedside. She feels very fatigued. Denies CP, SOB, dizziness, nausea. Objective: []General: NAD LLE: Splint CDI without erythema, no eyrthema proximal or distal. Lacks sensation and motor function of toes. Toes remain warm. Extra padding added to edges to avoid skin breakdown Assessment: 48 yo female POD 1 s/p closure of fasciotomy incisions 10/09 Plan: NWB LLE Keep splint CDI, ensure toes well padded Okay to stop post op abx 24 hours out now that wound is closed Anemia continues, recheck H&H 10/11 may need transfusion Vital Signs Temp 99.0 F 10/10/18 07:45 Pulse 85 10/10/18 07:45 Resp 16 10/10/18 09:54 BP 122/77 10/10/18 07:45 Pulse Ox 98 10/10/18 07:45 Intake & Output 10/09/18 10/10/18 10/10/18 18:59 06:59 18:59 Intake Total 1200 2584 Output Total 950 1650 300 Balance 250 934 -300 Weight 176 lb 12.8 oz Intake: IV Fluids 1200 980 LR 1200 NS 980 IVPB 54 cefazolin 54 Oral 1550 Output: Urine 950 1650 300 Laboratory Last Values WBC 9.0 10^3/ul (3.5-10.8) 10/10/18 05:34 RBC 2.43 10^6/ul (4.00-5.40) L 10/10/18 05:34 Hgb 7.3 g/dl (12.0-16.0) L 10/10/18 05:34 Hct 21 % (35-47) L 10/10/18 05:34 MCV 88 fL (80-97) 10/10/18 05:34 MCH 30 pg (27-31) 10/10/18 05:34 MCHC 34 g/dl (31-36) 10/10/18 05:34 RDW 14 % (10.5-15) 10/10/18 05:34 Plt Count 310 10^3/ul (150-450) 10/10/18 05:34 MPV 7.7 fL (7.4-10.4) 10/10/18 05:34 Neut % (Auto) 66.1 % 10/10/18 05:34 Lymph % (Auto) 15.4 % 10/10/18 05:34 [place] % (Auto) 15.5 % 10/10/18 05:34 Eos % (Auto) 2.1 % 10/10/18 05:34 Baso % (Auto) 0.9 % 10/10/18 05:34 Absolute Neuts (auto) 5.9 10^3/ul (1.5-7.7) 10/10/18 05:34 Absolute Lymphs (auto) 1.4 10^3/ul (1.0-4.8) 10/10/18 05:34 Absolute Monos (auto) 1.4 10^3/ul (0-0.8) H 10/10/18 05:34 Absolute Eos (auto) 0.2 10^3/ul (0-0.6) 10/10/18 05:34 Absolute Basos (auto) 0.1 10^3/ul (0-0.2) 10/10/18 05:34 Absolute Nucleated RBC 0 10^3/ul 10/10/18 05:34 Nucleated RBC % 0.1 10/10/18 05:34 Haptoglobin 138 mg/dL (30 - 200) 09/28/18 13:39 INR (Anticoag Therapy) 1.01 (0.77-1.02) 10/05/18 05:35 APTT 29.5 seconds (26.0-36.3) 09/22/18 05:51 Sodium 138 mmol/L (135-145) 10/10/18 05:34 Potassium 3.8 mmol/L (3.5-5.0) 10/10/18 05:34 Chloride 104 mmol/L (101-111) 10/10/18 05:34 Carbon Dioxide 28 mmol/L (22-32) 10/10/18 05:34 Anion Gap 6 mmol/L (2-11) 10/10/18 05:34 BUN 17 mg/dL (6-24) 10/10/18 05:34 Creatinine 1.17 mg/dL (0.51-0.95) H 10/10/18 05:34 Est GFR ( Amer) 60.3 (>60) 10/10/18 05:34 Est GFR (Non-Af Amer) 49.8 (>60) 10/10/18 05:34 BUN/Creatinine Ratio 14.5 (8-20) 10/10/18 05:34 Glucose 101 mg/dL (70-100) H 10/10/18 05:34 Lactic Acid 2.0 mmol/L (0.5-2.0) 09/19/18 21:56 Calcium 8.1 mg/dL (8.6-10.3) L 10/10/18 05:34 Phosphorus 4.2 mg/dL (2.5-5.0) 10/07/18 05:30 Magnesium 1.9 mg/dL (1.9-2.7) 10/07/18 05:30 Iron 23 ug/dL (50-212) L 09/28/18 13:39 TIBC 286 mcg/dL (250-450) 09/28/18 13:39 % Saturation 8 % (15-55) L 09/28/18 13:39 Unsat Iron Binding < 271 ug/dL 09/28/18 13:39 Transferrin 204 mg/dL (203-362) 09/28/18 13:39 Erythropoietin 12.6 mIU/mL (2.6 - 18.5) 09/28/18 13:39 Ferritin 126.9 ng/mL (11-307) 09/28/18 13:39 Total Bilirubin 0.30 mg/dL (0.2-1.0) 10/07/18 05:30 Direct Bilirubin 0.10 mg/dL (0.03-0.18) 09/28/18 06:15 Indirect Bilirubin 0.3 mg/dL (0.3-1.0) 09/28/18 06:15 AST 17 U/L (13-39) 10/07/18 05:30 ALT 4 U/L (7-52) L 10/07/18 05:30 Alkaline Phosphatase 111 U/L (34-104) H 10/07/18 05:30 Lactate Dehydrogenase 524 U/L (140-271) H 09/28/18 13:39 Total Creatine Kinase 575 U/L (10-223) H 10/01/18 05:34 C-Reactive Protein 79.60 mg/L (<8.01) H 10/04/18 05:15 Total Protein 5.4 g/dL (6.4-8.9) L 10/07/18 05:30 Albumin 2.6 g/dL (3.2-5.2) L 10/07/18 05:30 Globulin 2.8 g/dL (2-4) 10/07/18 05:30 Albumin/Globulin Ratio 0.9 (1-3) L 10/07/18 05:30 Vitamin B12 958 pg/mL (180-914) H 09/28/18 13:39 Folate 14.70 ng/mL (>3.99) 09/28/18 13:39 Beta HCG, Quant 4.30 mIU/mL 10/06/18 05:17 Urine Color Yellow 09/26/18 02:43 Urine Appearance Clear 09/26/18 02:43 Urine pH 6.0 (5-9) 09/26/18 02:43 Ur Specific [place] 1.012 (1.010-1.030) 09/26/18 02:43 Urine Protein Negative (Negative) 09/26/18 02:43 Urine Ketones Negative (Negative) 09/26/18 02:43 Urine Blood 3+ (Negative) A 09/26/18 02:43 Urine Nitrate Negative (Negative) 09/26/18 02:43 Urine Bilirubin Negative (Negative) 09/26/18 02:43 Urine Urobilinogen Negative (Negative) 09/26/18 02:43 Ur Leukocyte Esterase Negative (Negative) 09/26/18 02:43 Urine WBC (Auto) 1+(6-10/hpf) (Absent) A 09/26/18 02:43 Urine RBC (Auto) 2+(6-10/hpf) (Absent) A 09/26/18 02:43 Ur Squamous Epith Cells Present (Absent) A 09/26/18 02:43 Urine Bacteria Absent (Absent) 09/26/18 02:43 Ur Creatinine Concen 96.33 mg/dL 09/26/18 02:43 U Sodium Concentration 42 mmol/L 09/26/18 02:43 Urine Glucose Negative (Negative) 09/26/18 02:43 Vancomycin Trough 15.6 mcg/mL 09/25/18 06:06 Random Vancomycin 17.5 mcg/mL 10/04/18 05:15 Hepatitis A IgM Ab Nonreactive (Nonreactive) 09/20/18 15:10 Hep Bs Antigen Nonreactive (Nonreactive) 09/20/18 15:10 Hep B Core IgM Ab Nonreactive (Nonreactive) 09/20/18 15:10 Hepatitis C Antibody High reactive (Nonreactive) A 09/20/18 15:10 Hepatitis C Ab Index > 11.0 Index 09/20/18 15:10 Hepatitis C RNA Quant Undetected IU/mL (Undetected) 10/01/18 05:34 HIV 1&2 Antibody Nonreactive (Nonreactive) 10/01/18 05:34 Blood Type B Positive 10/06/18 05:17 Antibody Screen Negative 10/06/18 05:17 Crossmatch See Detail 10/06/18 05:17
--- NOTE | 2018-10-10 15:59 | PN ---
Subjective Date of Service: 10/10/18 Interval History: Had nausea when sat in a chair, relieved with antiemetic. L leg still hurts. Family History: Unchanged from Admission Social History: Unchanged from Admission Past Medical History: Unchanged from Admission Objective Active Medications: Acetaminophen (Tylenol Tab*) 650 mg PO Q6H PRN PRN Reason: PAIN OR TEMPERATURE Last Admin: 09/29/18 12:44 Dose: 650 mg Acetaminophen (Tylenol Tab*) 975 mg PO BID [facility] Last Admin: 10/10/18 09:36 Dose: Not Given Ascorbic Acid (Vitamin C Tab*) 500 mg PO DAILY [facility] Last Admin: 10/10/18 09:51 Dose: 500 mg Cetirizine HCl (Zyrtec*) 10 mg PO DAILY [facility] Last Admin: 10/10/18 08:12 Dose: 10 mg Clotrimazole (Gyne-Lotrimin 1% Vaginal Cream*) 1 applic VAGINAL BEDTIME [facility] Stop: 10/16/18 23:30 Diphenhydramine HCl (Benadryl Iv*) 25 mg IV Q6H PRN PRN Reason: itching Diphenhydramine HCl (Benadryl Po*) 25 mg PO Q4H PRN PRN Reason: ITCHING Last Admin: 09/20/18 19:55 Dose: 25 mg Docusate Sodium (Colace Cap*) 100 mg PO BID [facility] Last Admin: 10/10/18 08:12 Dose: 100 mg Ferrous Sulfate (Ferrous Sulfate Tab*) 325 mg PO DAILY [facility] Last Admin: 10/10/18 09:51 Dose: 325 mg Gabapentin (Neurontin Cap(*)) 100 mg PO TID [facility] Stop: 10/10/18 23:30 Last Admin: 10/10/18 13:55 Dose: 100 mg Heparin Sodium (Porcine) (Heparin Flush Picc/Ml/Cvc(*)) 1 - 3 ml FLUSH 0600, 1800 [facility]; Protocol Last Admin: 10/10/18 13:55 Dose: 1 ml Hydromorphone HCl (Dilaudid Inj1s*) 1 mg IV SLOW PU Q4H PRN PRN Reason: PAIN Last Admin: 10/10/18 12:18 Dose: 1 mg Cefazolin Sodium 500 mg/ (Sodium Chloride) 50 mls @ 200 mls/hr IVPB Q12H [facility] Stop: 10/10/18 23:00 Last Admin: 10/10/18 13:13 Dose: 200 mls/hr Lactated Ringer's (Lactated Ringers 1000 Ml Bag*) 1,000 mls @ 75 mls/hr IV PER RATE [facility] Lidocaine (Xylocaine 2% Viscous*) 15 ml SWISH SPIT TID PRN PRN Reason: PAIN Last Admin: 09/24/18 08:29 Dose: 15 ml Lorazepam (Ativan Tab(*)) 1 mg PO Q6H PRN PRN Reason: ANXIETY Last Admin: 10/09/18 20:31 Dose: 1 mg Montelukast Sodium (Singulair Tab*) 10 mg PO DAILY [facility] Last Admin: 10/10/18 08:12 Dose: 10 mg Morphine Sulfate (Morphine Inj ((Syringe))*) 2 mg IV Q2H PRN PRN Reason: PAIN Last Admin: 10/09/18 16:41 Dose: 2 mg Multivitamins/Minerals (Theragran/Minerals Tab*) 1 tab PO DAILY [facility] Last Admin: 10/10/18 09:51 Dose: 1 tab Ondansetron HCl (Zofran Inj*) 4 mg IV Q6H PRN PRN Reason: nausea Last Admin: 10/10/18 11:56 Dose: 4 mg Oxycodone HCl (Roxycodone Tab*) 10 mg PO Q4H PRN PRN Reason: PAIN - SEVERE Last Admin: 10/10/18 15:27 Dose: 10 mg Oxycodone/Acetaminophen (Percocet 5/325 Tab*) 1 tab PO Q4H PRN PRN Reason: PAIN Oxycodone/Acetaminophen (Percocet 5/325 Tab*) 2 tab PO Q4H PRN PRN Reason: PAIN Last Admin: 10/10/18 13:06 Dose: 2 tab Pantoprazole Sodium (Protonix Tab *) 40 mg PO DAILY [facility] Last Admin: 10/10/18 08:12 Dose: 40 mg Senna (Senokot Tab*) 1 tab PO BEDTIME PRN PRN Reason: CONSTIPATION Thiamine HCl (Vitamin B-1 Tab*) 100 mg PO DAILY [facility] Last Admin: 10/10/18 09:51 Dose: 100 mg Venlafaxine HCl (Effexor Xr Cap*) 150 mg PO DAILY [facility] Last Admin: 10/10/18 08:12 Dose: 150 mg Vital Signs - 8 hr 10/10/18 10/10/18 10/10/18 07:55 08:12 09:50 Respiratory 16 16 16 Rate 10/10/18 10/10/18 10/10/18 09:54 12:18 13:06 Respiratory 16 16 16 Rate 10/10/18 10/10/18 10/10/18 13:08 13:55 13:57 Respiratory 16 18 18 Rate 10/10/18 10/10/18 13:58 15:27 Respiratory 18 16 Rate Oxygen Devices in Use Now: None Appearance: Alert, in bed with head and legs elevated. In fair spirits. Looks comfortable. Extremities: No Clubbing, Cyanosis, - - L leg bandaged, splinted Skin: No Rash or Ulcers, No Nodules or Sclerosis, - Neurological: Alert and Oriented x 3, NL Sensation Result Diagrams: 10/10/18 05:34 10/10/18 05:34 Additional Lab and Data: Microbiology and Other Data: Microbiology 10/02/18 15:00 Leg Left Gram Stain - Final 09/26/18 02:43 Urine Urine Culture - Final No Growth (<1,000 CFU/mL) 09/25/18 14:30 Wound - Left Leg Anaerobic Culture - Final No Growth Day 4 09/25/18 14:30 Wound Anaerobic Culture - Final No Growth Day 4 09/25/18 14:30 Leg Left Gram Stain - Final 09/25/18 14:30 Leg Left Wound Culture - Final No Growth Day 4 09/25/18 14:30 Leg Left Gram Stain - Final 09/25/18 14:30 Leg Left Wound Culture - Final No Growth Day 4 09/21/18 06:00 Urine Urine Culture - Final No Growth (<1,000 CFU/mL) 10/02/18 15:00 No Source Provided Anaerobic Culture - Preliminary No Growth Day 1 10/02/18 15:00 Leg Left Wound Culture - Preliminary No Growth Day 1 Diagnostic Imaging: CARDIAC ECHO: Global left ventricular wall motion and contractility are within normal limits. There is normal left ventricular systolic function. The estimated ejection fraction is 55-60%. There is no evidence of aortic stenosis. There is mild mitral regurgitation. There is mild tricuspid regurgitation. There is no significant pericardial effusion. RENAL US: No hydronephrosis, stone or mass. Assess/Plan/Problems-Billing Assessment: 47 yo F with PMH polysubstance abuse (on suboxone/clonazepam), anxiety/ depression, presented with left leg compartment syndrome after syncope and collapse on 09/18 potential overdose. s/p 4 compartment fasciotomies, and multiple I&Ds. Resolving MARTÍN. - Patient Problems (1) Acute renal failure Current Visit: Yes Status: Acute Comment: - Due to severe rhabdo - Renal US unremarkable Much improved. Creatinine down to 1.17 on 10/10/18. (2) Compartment syndrome Current Visit: Yes Status: Acute Priority: High Code(s): T79.A0XA - COMPARTMENT SYNDROME, UNSPECIFIED, INITIAL ENCOUNTER SNOMED Code(s): 320634075 Comment: - Appears initiated by trauma during overdose, patient has poor recollection of events -S/P LLE irrigation and debridement, w complex wound closure on proximal area w/ wound VAC placement; plan is to close remaining sx wound on Tuesday - s/p fasciotomy and debridement 09/20/18, 09/21/18, 09/25/18, 09/28/18, 10/02/18, , 10/09/18. Wound now closed. Cefazolin for 24 hrs post-op. (3) Opiate use Current Visit: No Status: Acute Code(s): F11.90 - OPIOID USE, UNSPECIFIED, UNCOMPLICATED SNOMED Code(s): 304350589 Comment: Noted. (4) Tobacco use disorder Current Visit: No Status: Acute Code(s): F17.200 - NICOTINE DEPENDENCE, UNSPECIFIED, UNCOMPLICATED SNOMED Code(s): 192516786 Comment: Not on NRT. - Cessation encouraged (5) Anemia Current Visit: Yes Status: Acute Priority: Medium Code(s): D64.9 - ANEMIA , UNSPECIFIED SNOMED Code(s): 065008860 Comment: -Transfused 4 units of PRBC this admission, last unit on 10/06. -Agree w/multifactorial cause and per Iron studies, likely due to ELOY + AOCD -Continue Ferrous sulfate and Vit C -Renal disease, infection, and surgery were contributing, would now expect slow rise in H&H over the next month. -Continue watchful waiting (6) Vaginal irritation Current Visit: Yes Status: Acute Code(s): N89.8 - OTHER SPECIFIED NONINFLAMMATORY DISORDERS OF VAGINA SNOMED Code(s): 652336391 Comment: Pt requested Vagisil, clotrimazole cream x 7 days ordered. Status and Disposition: -Defer w/Orthopedics in both disposition and timing of DVT prophylaxis post planned Sx; if no risk for bleeding per observation in OR would suggest to restart Heparin SQ 3-4 hours post op, but will defer.
[2018-10-10] MEDS ORDERED: Clotrimazole 1% VAGINAL CREAM* 45 GM VAGINAL SCH (21:00)
[2018-10-11] MEDS: HYDROmorphone INJ1* 1 MG/ML SYRINGE IV SLOW PU PRN ×4 (01:01→13:10)
[2018-10-11 06:44] LABS: Hematocrit 23 % (35-47)
[2018-10-11] MEDS: oxyCODONE TAB* 5 MG TAB PO PRN (08:41)
[2018-10-11] MEDS: Cetirizine* 10 MG TAB PO SCH (08:41)
[2018-10-11] MEDS: Ferrous Sulfate TAB* 325 MG PO SCH (08:41)
[2018-10-11] MEDS: Venlafaxine EXT RELEASE CAP* 75 MG PO SCH (08:41)
[2018-10-11] MEDS: Montelukast Sodium TAB* 10 MG PO SCH (08:41)
[2018-10-11] MEDS: Acetaminophen TAB* 325 MG PO SCH (08:41)
[2018-10-11] MEDS: Multivitamins/Minerals TAB PO SCH (08:42)
[2018-10-11] MEDS: Thiamine TAB* 100 MG TAB PO SCH (08:42)
[2018-10-11] MEDS: Docusate CAP* 100 MG PO SCH (08:42)
[2018-10-11] MEDS: Ascorbic Acid TAB* 500 MG PO SCH (08:42)
[2018-10-11] MEDS: Pantoprazole TAB * 40 MG TAB PO SCH (08:42)
--- NOTE | 2018-10-11 08:56 | PN ---
Subjective Date of Service: 10/11/18 Interval History: HD #23 on 10/11/18 48 yo F with PMH PSA and left leg wound and rhabdo s/p compartment syndrome, 4 compartment fasciotomies, and multiple I&Ds. Resolving MARTÍN. Overnight, no acute events, vitasl signs stable, afebrile, normotensive satting well on RA. This morning seen w parents at bedside. In good spiritis, feeling well, tolerable pain in L leg with no complaints. ROS neg for CP, SOB, GI/ complaints Family History: Unchanged from Admission Social History: Unchanged from Admission Past Medical History: Unchanged from Admission Objective Active Medications: Acetaminophen (Tylenol Tab*) 650 mg PO Q6H PRN PRN Reason: PAIN OR TEMPERATURE Last Admin: 09/29/18 12:44 Dose: 650 mg Acetaminophen (Tylenol Tab*) 975 mg PO BID [facility] Last Admin: 10/11/18 08:41 Dose: 975 mg Ascorbic Acid (Vitamin C Tab*) 500 mg PO DAILY [facility] Last Admin: 10/11/18 08:42 Dose: 500 mg Cetirizine HCl (Zyrtec*) 10 mg PO DAILY [facility] Last Admin: 10/11/18 08:41 Dose: 10 mg Clotrimazole (Gyne-Lotrimin 1% Vaginal Cream*) 1 applic VAGINAL BEDTIME [facility] Stop: 10/16/18 23:30 Last Admin: 10/10/18 21:01 Dose: 1 applic Diphenhydramine HCl (Benadryl Iv*) 25 mg IV Q6H PRN PRN Reason: itching Diphenhydramine HCl (Benadryl Po*) 25 mg PO Q4H PRN PRN Reason: ITCHING Last Admin: 09/20/18 19:55 Dose: 25 mg Docusate Sodium (Colace Cap*) 100 mg PO BID [facility] Last Admin: 10/11/18 08:42 Dose: 100 mg Ferrous Sulfate (Ferrous Sulfate Tab*) 325 mg PO DAILY [facility] Last Admin: 10/11/18 08:41 Dose: 325 mg Heparin Sodium (Porcine) (Heparin Flush Picc/Ml/Cvc(*)) 1 - 3 ml FLUSH 0600, 1800 [facility]; Protocol Last Admin: 10/11/18 08:52 Dose: 1 ml Heparin Sodium (Porcine) (Heparin Vial(*)) 5,000 units SUBCUT Q8HR [facility] Hydromorphone HCl (Dilaudid Inj1s*) 1 mg IV SLOW PU Q4H PRN PRN Reason: PAIN Last Admin: 10/11/18 05:13 Dose: 1 mg Lactated Ringer's (Lactated Ringers 1000 Ml Bag*) 1,000 mls @ 75 mls/hr IV PER RATE [facility] Lidocaine (Xylocaine 2% Viscous*) 15 ml SWISH SPIT TID PRN PRN Reason: PAIN Last Admin: 09/24/18 08:29 Dose: 15 ml Lorazepam (Ativan Tab(*)) 1 mg PO Q6H PRN PRN Reason: ANXIETY Last Admin: 10/09/18 20:31 Dose: 1 mg Montelukast Sodium (Singulair Tab*) 10 mg PO DAILY [facility] Last Admin: 10/11/18 08:41 Dose: 10 mg Morphine Sulfate (Morphine Inj ((Syringe))*) 2 mg IV Q2H PRN PRN Reason: PAIN Last Admin: 10/09/18 16:41 Dose: 2 mg Multivitamins/Minerals (Theragran/Minerals Tab*) 1 tab PO DAILY [facility] Last Admin: 10/11/18 08:42 Dose: 1 tab Ondansetron HCl (Zofran Inj*) 4 mg IV Q6H PRN PRN Reason: nausea Last Admin: 10/10/18 11:56 Dose: 4 mg Oxycodone HCl (Roxycodone Tab*) 10 mg PO Q4H PRN PRN Reason: PAIN - SEVERE Last Admin: 10/11/18 08:41 Dose: 10 mg Oxycodone/Acetaminophen (Percocet 5/325 Tab*) 1 tab PO Q4H PRN PRN Reason: PAIN Oxycodone/Acetaminophen (Percocet 5/325 Tab*) 2 tab PO Q4H PRN PRN Reason: PAIN Last Admin: 10/10/18 13:06 Dose: 2 tab Pantoprazole Sodium (Protonix Tab *) 40 mg PO DAILY [facility] Last Admin: 10/11/18 08:42 Dose: 40 mg Senna (Senokot Tab*) 1 tab PO BEDTIME PRN PRN Reason: CONSTIPATION Thiamine HCl (Vitamin B-1 Tab*) 100 mg PO DAILY [facility] Last Admin: 10/11/18 08:42 Dose: 100 mg Venlafaxine HCl (Effexor Xr Cap*) 150 mg PO DAILY [facility] Last Admin: 10/11/18 08:41 Dose: 150 mg Vital Signs - 8 hr 10/11/18 10/11/18 10/11/18 01:01 02:01 03:00 Temperature Pulse Rate Respiratory 18 16 Rate Blood Pressure (mmHg) O2 Sat by Pulse 95 Oximetry 10/11/18 10/11/18 10/11/18 04:18 05:13 08:41 Temperature 98.4 F Pulse Rate 86 Respiratory 17 18 20 Rate Blood Pressure 123/74 (mmHg) O2 Sat by Pulse 97 Oximetry 10/11/18 08:42 Temperature Pulse Rate Respiratory 20 Rate Blood Pressure (mmHg) O2 Sat by Pulse Oximetry Oxygen Devices in Use Now: None Appearance: well woman in NAD Ears/Nose/Mouth/Throat: NL Teeth, Lips, Gums, Mucous Membranes Moist Neck: NL Appearance and Movements; NL JVP Respiratory: Symmetrical Chest Expansion and Respiratory Effort, Clear to Auscultation Cardiovascular: NL Sounds; No Murmurs; No JVD, RRR Abdominal: NL Sounds; No Tenderness; No Distention Extremities: - - L leg wrapped, wound vac off Neurological: Alert and Oriented x 3 Result Diagrams: 10/11/18 08:45 10/11/18 08:45 Additional Lab and Data: Microbiology and Other Data: Microbiology 10/02/18 15:00 Leg Left Gram Stain - Final 09/26/18 02:43 Urine Urine Culture - Final No Growth (<1,000 CFU/mL) 09/25/18 14:30 Wound - Left Leg Anaerobic Culture - Final No Growth Day 4 09/25/18 14:30 Wound Anaerobic Culture - Final No Growth Day 4 09/25/18 14:30 Leg Left Gram Stain - Final 09/25/18 14:30 Leg Left Wound Culture - Final No Growth Day 4 09/25/18 14:30 Leg Left Gram Stain - Final 09/25/18 14:30 Leg Left Wound Culture - Final No Growth Day 4 09/21/18 06:00 Urine Urine Culture - Final No Growth (<1,000 CFU/mL) 10/02/18 15:00 No Source Provided Anaerobic Culture - Preliminary No Growth Day 1 10/02/18 15:00 Leg Left Wound Culture - Preliminary No Growth Day 1 Diagnostic Imaging: CARDIAC ECHO: Global left ventricular wall motion and contractility are within normal limits. There is normal left ventricular systolic function. The estimated ejection fraction is 55-60%. There is no evidence of aortic stenosis. There is mild mitral regurgitation. There is mild tricuspid regurgitation. There is no significant pericardial effusion. RENAL US: No hydronephrosis, stone or mass. Assess/Plan/Problems-Billing Assessment: 47 yo F with PMH polysubstance abuse (on suboxone/clonazepam), anxiety/ depression, presented with left leg compartment syndrome after syncope and collapse on 09/18 potential overdose. s/p 4 compartment fasciotomies, and multiple I&Ds. Stable for xfer to [facility] - Patient Problems (1) Compartment syndrome Current Visit: Yes Status: Acute Priority: High Code(s): T79.A0XA - COMPARTMENT SYNDROME, UNSPECIFIED, INITIAL ENCOUNTER SNOMED Code(s): 610125978 Comment: - Appears initiated by trauma during overdose, patient has poor recollection of events -S/P LLE irrigation and debridement, w complex wound closure on proximal area w/ wound VAC placement; plan is to close remaining sx wound on Tuesday - s/p fasciotomy and debridement 09/20/18, 09/21/18, 09/25/18, 09/28/18, 10/02/18, , 10/09/18. Wound now closed. Cefazolin for 24 hrs post-op. (2) Rhabdomyolysis Current Visit: Yes Status: Resolved Code(s): M62.82 - RHABDOMYOLYSIS SNOMED Code(s): 032982378 Comment: - CPK almost 70K at admission - down to <3K , resolving kidney fxn (3) Anemia Current Visit: Yes Status: Acute Priority: Medium Code(s): D64.9 - ANEMIA , UNSPECIFIED SNOMED Code(s): 033563384 Comment: -Transfused 4 units of PRBC this admission, last unit on 10/06. -Agree w/multifactorial cause and per Iron studies, likely due to ELOY + AOCD -Continue Ferrous sulfate and Vit C -Renal disease, infection, and surgery were contributing, would now expect slow rise in H&H over the next month. -Continue watchful waiting (4) Cellulitis Current Visit: Yes Status: Resolved Code(s): L03.90 - CELLULITIS, UNSPECIFIED SNOMED Code(s): 242985246 Comment: - LLE, knee area-Resolved, given Vanco 09/23-09/29 - No abx now 10/08 (5) Polysubstance (including opioids) dependence w/o physiol dependence Current Visit: Yes Status: Acute Code(s): F19.20 - OTHER PSYCHOACTIVE SUBSTANCE DEPENDENCE, UNCOMPLICATED SNOMED Code(s): 63750466 Comment: - Has been on suboxone at [facility] - Suboxone on hold while inpatient and acutely ill - Pain control and remains on Lorazepam (6) Anxiety and depression Current Visit: Yes Status: Acute Code(s): F41.9 - ANXIETY DISORDER, UNSPECIFIED; F32.9 - MAJOR DEPRESSIVE DISORDER, SINGLE EPISODE, UNSPECIFIED SNOMED Code(s): 85559702 Comment: - On Effexor and ativan - supportive care provided (7) DVT prophylaxis Current Visit: Yes Status: Acute Priority: Low Code(s): MLE3936 - SNOMED Code(s): 183868800 Comment: -Defer w/ortho and will defer when they feel the best time would be to be placed back on prophylaxis perioperatively -Would suggest SHQ Status and Disposition: -XFER TO [facility].
[2018-10-11 08:59] LABS: ABS Basophils 0.1 10^3/ul (0-0.2); ABS Eosinophils 0.2 10^3/ul (0-0.6); ABS Lymphocytes 1.8 10^3/ul (1.0-4.8); ABS Monocytes 1.4 10^3/ul (0-0.8); ABS Neutrophils 6.7 10^3/ul (1.5-7.7); ABS Nucleated RBC 0 10^3/ul; Eosinophil % 2.2 %; Hematocrit 25 % (35-47); Hemoglobin 8.4 g/dl (12.0-16.0); Lymphocyte % 17.6 %; Mean Corpuscular HGB Conc 34 g/dl (31-36); Mean Corpuscular Hemoglobin 30 pg (27-31); Mean Corpuscular Volume 87 fL (80-97); Mean Platelet Volume 7.7 fL (7.4-10.4); Nucleated Red Blood Cells % 0; Platelet Count 309 10^3/ul (150-450); Red Blood Count 2.85 10^6/ul (4.00-5.40); Red Cell Distribution Width 14 % (10.5-15); White Blood Count 10.3 10^3/ul (3.5-10.8)
[2018-10-11 09:08] LABS: Activated Partial Thrombo Time 29.1 seconds (26.0-36.3); INR 1.13 (0.77-1.02)
[2018-10-11 09:18] LABS: EGFR African American 62.7 (>60); EGFR Non-African American 51.8 (>60)
[2018-10-11 11:48] VITALS: BP 118/69
[2018-10-11] MEDS: oxyCODONE/Acetamin 5/325 MG* TAB PO PRN (13:28)
[2018-10-11] MEDS ORDERED: Heparin VIAL(*) 5000 UNITS/ML VIAL (FIVE THOUSAND) SUBCUT SCH (14:00)
--- NOTE | 2018-10-12 03:09 | DS ---
DISCHARGE SUMMARY: DATE OF ADMISSION: 09/20/18 DATE OF DISCHARGE: 10/11/18 PRIMARY DIAGNOSES: 1. Compartment syndrome of the left lower leg. 2. Rhabdomyolysis. 3. Polysubstance abuse. 4. Acute kidney injury. SECONDARY DIAGNOSES: 1. Anemia. 2. Anxiety. 3. Depression. MEDICATIONS ON DAY OF DISCHARGE: 1. Loratadine 10 mg p.o. daily. 2. Protonix 40 mg p.o. daily. 3. Acetaminophen 975 mg p.o. b.i.d. standing and 650 mg p.o. q.8 hours p.r.n. 4. Vitamin C 500 mg p.o. daily. 5. Clotrimazole 1% vaginal cream 1 application per vagina p.r.n. nightly for symptoms. 6. Diphenhydramine 25 mg p.o. q.4 hours p.r.n. 7. Docusate 100 mg p.o. b.i.d. 8. Ferrous sulfate 325 mg p.o. daily. 9. Heparin flush for midline catheter 1 to 3 mL flush per protocol. 10. Hydromorphone injection 1 mg IV q.6 hours p.r.n. for severe pain. 11. Lorazepam 1 mg tab 1 mg p.o. q.6 hours p.r.n. for severe anxiety. 12. Montelukast 10 mg p.o. daily. 13. Morphine 2 mg IV q.2 hours p.r.n. for pain. 14. Oxycodone 10 mg p.o. q.4 hours p.r.n. for pain. 15. Oxycodone/acetaminophen 5/325 two tabs p.o. q.4 hours p.r.n. for pain. 16. Senna 1 tab p.o. q.h.s. 17. Thiamine 100 mg p.o. daily. 18. Venlafaxine 150 mg p.o. daily. Her medications that are new on discharge include: All pain medications oxycodone/acetaminophen, oxycodone alone, injectable morphine and Dilaudid to be managed at the PMRU; lorazepam 1 mg tablet for anxiety. All other medications consistent with home medications. HISTORY OF PRESENT ILLNESS/HOSPITAL COURSE: This is a 48-year-old female with above past medical history, who presented to the emergency room on 09/20/18, who was noted to be in active polysubstance abuse and had been abusing heroin, fentanyl, and cocaine just 1 day prior to her admission. She presented for left leg pain and inability to walk and was immediately evaluated by the surgical team and found to be in acute compartment syndrome necessitating a surgical emergency and went directly on 09/20/18 to the emergency room 1 day prior to admission. Of note, with the consistent of her substance abuse, she was seen the day prior for an overdose and needed to use Narcan and was discharged from the ED 1 day prior to admission. When she initially presented to the emergency room, she was afebrile 98.8, her pulse was 104, her respiratory rate was 33, her blood pressure was 143/107, her pulse ox was 100%. Her white count was elevated at 17.6, her H and H were stable, and her initial BMP was concerning for creatinine of 2.41, which was elevated from her normal baseline; sodium 131; potassium 4; chloride 101; carbon dioxide 19; BUN 38; glucose 113. Her LFTs were elevated with AST of 1079, ALT of 392, total creatine kinase at this time was 68,269, and CRP was 119. Her pH was normal at that time. Of note, she was admitted from the emergency room directly to the OR and she had immediate fasciotomy. She was then admitted to the short stay unit with hospitalist following and her hospital course by problem is as follows : 1. Compartment syndrome of the left lower leg. Ms. Trujillo had a very complicated surgical condition necessitating multiple fasciotomies and debridement initially on 09/20/18, then again 09/21/18, then again 09/25/18, , 10/02/18, 10/06/18, and 10/09/18. Ultimately, on 10/09/18, they were able to close the left lower leg wound in the operating room and removed the wound VAC. Ultimately, multiple discussions with the patient and her family and Surgery opted for limb sparing surgery, although she is noted with no left muscle intact below the knee, where her gastrocnemius was removed as well as her Achilles tendon. She will need close followup with Physical Medicine and Rehab as she will be non-weightbearing per surgical instruction for at least the next week to 10 days in anticipation for weightbearing exercise. Cefazolin was done 24 hours postoperatively with each fasciotomy and debridement and she had complex wound closure on the proximal area. As noted the wound VAC was discontinued on 10/09/18 and wound closure with lindsey was completed at that time. Surgery will continue to follow the patient in the [facility] unit for wound care management and to determine when weightbearing exercise will be safe. 2. Rhabdomyolysis. Of note, her CPK was 70,000 almost at admission. She was managed on IV fluids aggressively early in her hospitalization, and over the course of her hospitalization, her CPK trended down to less than 3000 and her kidney function resumed to complete normal levels on discharge and she had no residual pain from her rhabdo point of view. 3. Cellulitis of her lower extremity. Postoperatively, she did have a complication of left lower extremity cellulitis noted on 09/23/18 and she received vancomycin until 09/30/18 with complete resolution of cellulitis. 4. Anemia. Over the course of this admission, she had acute blood loss anemia secondary to multiple fasciotomies and debridement in the emergency room and was transfused a total of 4 units of packed red blood cells during this admission. The last transfusion on 10/06/18. She also has multifactorial underlying anemia likely due to iron deficiency and anemia of chronic disease. She was discharged on ferrous sulfate, which was a home medication for her that she was noncompliant on. 5. Polysubstance abuse including opiate use disorder. The patient was on Suboxone prior to admission, although she had relapsed to heroin and fentanyl the day prior to admission. She remains on pain control under surgical recommendations in the setting of multiple fasciotomies and I and Ds. An attempt to wean her to oral pain medication as quickly as possible in the setting of the rehab facility should be done with long-acting extended-release pain medication b.i.d. and breakthrough pain medication as needed as she attempts rehab further more and she had co- benzodiazepine use disorder. She remains on low-dose lorazepam, which is not a home medication and can be discontinued in favor of some other acute anxiety agents such as gabapentin or hydroxyzine p.r.n. as rehabilitation continues. 6. She has underlying mood disorder of anxiety and depression. She was restarted on her home Effexor mcc through her hospitalization and this could be uptitrated as the patient tolerates. 7. Acute kidney injury. She had a creatinine of 2.41 on admission. This was secondary to her rhabdomyolysis. With IV fluids and supportive management, her creatinine and renal function returned to her normal baseline. She had no problems with urine output and is voiding freely at time of discharge. 8. Her elevated LFTs. Her LFTs were elevated in the setting of acute rhabdomyolysis. This resolved over the course of her hospitalization. This concludes her active problem management in her total of 23-day hospitalization. REVIEW OF SYSTEMS ON DAY OF DISCHARGE: Positive for left lower extremity pain, but otherwise denies any active chest pain, shortness of breath, GI, , or skin complaint. She does note mild anxiety, but does not have any thoughts of self-harm and she is forward looking and thinking with supportive family about engaging in rehab moving forward. PHYSICAL EXAMINATION: Her vital signs on day of discharge are: Blood pressure 129/84; temperature 97.8; heart rate 79, sinus; satting at 98% on room air with a respiratory rate of 18. DIAGNOSTIC STUDIES/LAB DATA: Her labs on day of discharge are notable for an anemia of 8.4/25 with unremarkable white blood cell count and platelets. Her BMP is notable for creatinine of 1.13 and BUN of 13, otherwise unremarkable. Her last liver function tests were done on 10/07/18, which showed AST of 17 and ALT of 4, alkaline phosphatase at 111. Micro done on this hospitalization included multiple wound cultures of the left leg with ultimately no growth to date and blood cultures done on day of admission with no growth today as well as urine culture done 2 days after admission with no growth to date. Imaging done in the setting of this hospitalization was notable for renal ultrasound done on 09/20/18 that showed normal healthy kidneys with no hydronephrosis, stone, or mass. She also had a transthoracic echocardiogram done on 09/26/18, which showed a normal global left ventricular wall motion, a normal left ventricular systolic function, and estimated ejection fraction of 55% to 60%, and no evidence of valvular pathology aside from mild mitral regurg and mild tricuspid regurgitation with no evidence of any other valvular pathology. She had no other active images done in this hospitalization. A physical exam on day of discharge is notable for pleasant woman sitting up on bed in no distress. Her lung exam, respiratory is significant for clear to auscultation bilaterally. Heart rate is regular rate and rhythm with no murmurs , rubs, or gallops. Her belly is soft, nontender, and nondistended. Her extremities are notable for a left leg that is wrapped, no longer wound VAC in place. Her toes are warm to touch and she has minimum movement. She is alert and oriented x3. TIME SPENT: More than 45 minutes was spent in the planning of this discharge, with over half of that spent at the bedside of the patient. The plan is to discharge to physical medicine and rehab unit for ongoing rehabilitation while Surgery continues to follow to determine when weightbearing exercises can begin for her left lower extremity. Active problems to follow up after this hospitalization are as follows: 1. Her pain control. The patient has a known history of polysubstance abuse and she will be transitioned back to Suboxone when pain has reached a plateau. Of note, Suboxone b.i.d. and t.i.d. dosing is often appropriate for patients for acute pain control in the setting of opiate use disorder as her pain, which is a stable plateau level and furthermore tapering off her Ativan as her mood disorder and progression with rehab continues. 2. When she is ultimately fully discharged from the hospital, she needs to engage in primary care and followup her renal function to ensure everything is okay and well. Otherwise, no active hospital problems aside from rehabilitation for her left lower leg wound in an ongoing fashion will continue. If there are any questions about the care received for this patient during her hospitalization, please do not hesitate to contact us and reach out. [id number]/[facility] #: [id number] JAYLENE
== END 2018-10-11 13:40 | DRG 907 ==
LOC: ED 20:35 → SSU 09-20 00:53
PROVIDERS: ADMIT Internal Medicine; ATTEND Internal Medicine
PROC: 0KNT0ZZ Release Left Lower Leg Muscle, Open Approach (ICD-10-PCS; 2018-09-19)
PROC: 0KNT0ZZ Release Left Lower Leg Muscle, Open Approach (ICD-10-PCS; 2018-09-19)
PROC: 0KNT0ZZ Release Left Lower Leg Muscle, Open Approach (ICD-10-PCS; 2018-09-19)
PROC: 0KNT0ZZ Release Left Lower Leg Muscle, Open Approach (ICD-10-PCS; 2018-09-19)
PROC: 0KBT0ZZ Excision of Left Lower Leg Muscle, Open Approach (ICD-10-PCS; 2018-09-21)
PROC: 0KBT0ZZ Excision of Left Lower Leg Muscle, Open Approach (ICD-10-PCS; 2018-09-25)
PROC: 30233N1 Transfusion of Nonautologous Red Blood Cells into Peripheral Vein, Percutaneous Approach (ICD-10-PCS; principal; 2018-09-27)
PROC: 0QBH0ZZ Excision of Left Tibia, Open Approach (ICD-10-PCS; 2018-09-28)
PROC: 0KBT0ZZ Excision of Left Lower Leg Muscle, Open Approach (ICD-10-PCS; 2018-10-02)
PROC: 0KBT0ZZ Excision of Left Lower Leg Muscle, Open Approach (ICD-10-PCS; 2018-10-05)
PROC: 0KBT0ZZ Excision of Left Lower Leg Muscle, Open Approach (ICD-10-PCS; 2018-10-09)
DX: T79.A22A Traumatic compartment syndrome of left lower extremity, initial encounter (principal); N17.0 Acute kidney failure with tubular necrosis; M62.82 Rhabdomyolysis; L03.116 Cellulitis of left lower limb; I96 Gangrene, not elsewhere classified; F14.20 Cocaine dependence, uncomplicated; F11.20 Opioid dependence, uncomplicated; D62 Acute posthemorrhagic anemia; X58.XXXA Exposure to other specified factors, initial encounter; E05.90 Thyrotoxicosis, unspecified without thyrotoxic crisis or storm; J45.909 Unspecified asthma, uncomplicated; K21.9 Gastro-esophageal reflux disease without esophagitis; M19.90 Unspecified osteoarthritis, unspecified site; F90.9 Attention-deficit hyperactivity disorder, unspecified type; F43.10 Post-traumatic stress disorder, unspecified; F41.9 Anxiety disorder, unspecified; G89.29 Other chronic pain; F17.210 Nicotine dependence, cigarettes, uncomplicated; Z96.651 Presence of right artificial knee joint; B18.2 Chronic viral hepatitis C; Z88.6 Allergy status to analgesic agent; Z88.8 Allergy status to other drugs, medicaments and biological substances; Z86.14 Personal history of Methicillin resistant Staphylococcus aureus infection; Z91.5 Personal history of self-harm; Z72.89 Other problems related to lifestyle; Z80.42 Family history of malignant neoplasm of prostate
CPT/HCPCS: 36415; 76775; 80048; 80053; 80074; 80076; 80202; 81003; 81015; 81025; 82550; 82565; 82570; 82607; 82668; 82728; 82746; 83010; 83540; 83550; 83605; 83615; 83735; 84100; 84300; 84520; 84702; 85014; 85018; 85025; 85027; 85610; 85730; 86140; 86703; 86850; 86900; 86901; 86922; 87040; 87070; 87073; 87086; 87205; 87522; 87641; 88304; 93306; 99283; A9270-GY; C1751; G8978-GP-CK; G8978-GP-CL; G8979-GP-CI; G8979-GP-CK; G8980-GP-CK; G8987-GO-CK; G8987-GO-CL; G8988-GO-CI; J0690; J1100; J1170; J1240; J1644; J1940; J2001; J2250; J2270; J2405; J2543; J2704; J2765; J3010; J3370; J3411; J3475; J3490; J7060; P9040

== ENCOUNTER 2018-10-11 11:26 | Inpatient (IN) | payer MEDICARE, MEDICAID ==
[2018-10-11] MEDS ORDERED: Methadone TAB* 10 MG PO ONE (17:00)
[2018-10-11] MEDS: LORazepam TAB(*) 1 MG PO PRN (18:36)
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
[2018-10-11] MEDS: Methadone TAB* 10 MG PO SCH (22:11)
[2018-10-11] MEDS: Heparin VIAL(*) 5000 UNITS/ML VIAL (FIVE THOUSAND) SUBCUT SCH (22:12)
[2018-10-11] MEDS: Clotrimazole 1% VAGINAL CREAM* 45 GM VAGINAL SCH (22:34)
[2018-10-11] MEDS: Docusate CAP* 100 MG PO SCH (22:34)
[2018-10-12] MEDS: Acetaminophen TAB* 325 MG PO PRN ×3 (04:53→23:36)
[2018-10-12] MEDS: LORazepam TAB(*) 1 MG PO PRN ×3 (04:53→21:15)
[2018-10-12] MEDS: Heparin VIAL(*) 5000 UNITS/ML VIAL (FIVE THOUSAND) SUBCUT SCH ×3 (04:54→21:16)
[2018-10-12] MEDS: Ferrous Sulfate TAB* 325 MG PO SCH (09:00)
[2018-10-12] MEDS: Docusate CAP* 100 MG PO SCH ×2 (09:00→21:15)
[2018-10-12] MEDS: Venlafaxine EXT RELEASE CAP* 75 MG PO SCH (09:01)
[2018-10-12] MEDS: Methadone TAB* 10 MG PO SCH ×2 (09:01→17:07)
[2018-10-12] MEDS: Pantoprazole TAB * 40 MG TAB PO SCH (09:01)
[2018-10-12] MEDS: Montelukast Sodium TAB* 10 MG PO SCH (17:07)
--- NOTE | 2018-10-12 17:57 | PN ---
Progress Note Date of Service: 10/12/18 Note: EDD MUSTAFAONEIL was visited. Therapy notes read and reviewed. She believes the Methadone is not frequent enough; I have increased to 10 TID and may need 15 TID. She has been doing ok and has not needed breakthrough. Is taking ativan for anxiety Current Medications: Active Medications Generic Name Dose Route Start Last Admin Trade Name Freq PRN Reason Stop Dose Admin Acetaminophen 650 mg 10/11/18 14:18 10/12/18 14:27 Tylenol Tab* PO 650 mg Q6H PRN Administration FEVER/PAIN Clotrimazole 1 applic 10/11/18 21:00 10/11/18 22:34 Gyne-Lotrimin 1% Vaginal Cream* VAGINAL 1 applic BEDTIME CONY Administration Docusate Sodium 100 mg 10/11/18 21:00 10/12/18 09:00 Colace Cap* PO 100 mg BID CONY Administration Ferrous Sulfate 325 mg 10/12/18 09:00 10/12/18 09:00 Ferrous Sulfate Tab* PO 325 mg DAILY CONY Administration Heparin Sodium (Porcine) 5,000 units 10/11/18 22:00 10/12/18 14:28 Heparin Vial(*) SUBCUT 5,000 units Q8HR CONY Administration Heparin Sodium (Porcine) 1 ml 10/12/18 18:00 Heparin Flush Picc/Ml/Cvc(*) FLUSH 0600,1800 [facility] Protocol Lorazepam 1 mg 10/11/18 18:17 10/12/18 14:28 Ativan Tab(*) PO 1 mg Q6H PRN Administration ANXIETY Magnesium Hydroxide 30 ml 10/11/18 14:18 Milk Of Magnesia Liq* PO Q6H PRN CONSTIPATION Methadone HCl 10 mg 10/12/18 17:00 10/12/18 17:07 Dolophine Tab* PO 10 mg Q8H CONY Administration Montelukast Sodium 10 mg 10/12/18 17:00 10/12/18 17:07 Singulair Tab* PO 10 mg 1700 CONY Administration Pantoprazole Sodium 40 mg 10/12/18 09:00 10/12/18 09:01 Protonix Tab* PO 40 mg DAILY CONY Administration Prochlorperazine 10 mg 10/11/18 18:03 Compazine Tab* PO Q8HR PRN NAUSEA Senna 2 tab 10/11/18 14:18 Senokot Tab* PO BEDTIME PRN CONSTIPATION Venlafaxine HCl 150 mg 10/12/18 09:00 10/12/18 09:01 Effexor Xr Cap* PO 150 mg DAILY CONY Administration Vital Signs: Vital Signs Temp Pulse Resp BP Pulse Ox 98.5 F 81 18 116/77 97 10/12/18 15:30 10/12/18 15:30 10/12/18 17:07 10/12/18 15:30 10/12/18 15:30 Exam: HEENT: EOMI, head NC/AT LUNGS: Clear HEART: Reg rhythm ABDOMEN: Soft EXTREMITIES: LLE in splint NEUROLOGIC: MOves all 4 extremities. LLE can wiggle toes Assessment/Plan: 1. Compartment Syndrome LLE, S/P fasciotomy: NWB LLE, PT/OT 2. Analgesia: Methadone 10 TID, may need to increase to 15 3. History of Polysubstance Abuse: Trying to avoid traditional opioids. 4. Asthma: Singulair 5. DVT Prophylaxis: Heparin 6. Advanced Directives: Has MOLST. DNR 7. GERD: Protonix 10/12/18 17:55 10/12/18 17:59
[2018-10-12] MEDS: Clotrimazole 1% VAGINAL CREAM* 45 GM VAGINAL SCH (21:21)
[2018-10-13] MEDS: Methadone TAB* 10 MG PO SCH ×3 (00:53→16:58)
[2018-10-13] MEDS: Heparin VIAL(*) 5000 UNITS/ML VIAL (FIVE THOUSAND) SUBCUT SCH ×3 (06:14→21:56)
[2018-10-13] MEDS: Acetaminophen TAB* 325 MG PO PRN ×2 (06:30→19:34)
[2018-10-13 06:45] LABS: ABS Basophils 0.1 10^3/ul (0-0.2); ABS Eosinophils 0.3 10^3/ul (0-0.6); ABS Lymphocytes 2.1 10^3/ul (1.0-4.8); ABS Monocytes 0.9 10^3/ul (0-0.8); ABS Neutrophils 3.9 10^3/ul (1.5-7.7); ABS Nucleated RBC 0 10^3/ul; Eosinophil % 4.4 %; Hematocrit 25 % (35-47); Hemoglobin 8.4 g/dl (12.0-16.0); Lymphocyte % 28.2 %; Mean Corpuscular HGB Conc 34 g/dl (31-36); Mean Corpuscular Hemoglobin 29 pg (27-31); Mean Corpuscular Volume 86 fL (80-97); Mean Platelet Volume 8.3 fL (7.4-10.4); Nucleated Red Blood Cells % 0; Platelet Count 323 10^3/ul (150-450); Red Blood Count 2.89 10^6/ul (4.00-5.40); Red Cell Distribution Width 13 % (10.5-15); White Blood Count 7.4 10^3/ul (3.5-10.8)
[2018-10-13 07:02] LABS: Albumin 3.3 g/dL (3.2-5.2); Albumin/Globulin Ratio 1.1 (1-3); BUN/Creatinine Ratio 19.2 (8-20); EGFR African American 73.1 (>60); EGFR Non-African American 60.4 (>60); Globulin 3.1 g/dL (2-4); Potassium 3.7 mmol/L (3.5-5.0); Total Bilirubin 0.3 mg/dL (0.2-1.0); Total Protein 6.4 g/dL (6.4-8.9)
[2018-10-13] MEDS: Ferrous Sulfate TAB* 325 MG PO SCH (09:13)
[2018-10-13] MEDS: Pantoprazole TAB * 40 MG TAB PO SCH (09:14)
[2018-10-13] MEDS: Venlafaxine EXT RELEASE CAP* 75 MG PO SCH (09:14)
[2018-10-13] MEDS: Docusate CAP* 100 MG PO SCH (09:14)
--- NOTE | 2018-10-13 09:21 | PN ---
Progress Note Date of Service: 10/13/18 Note: EDD MUSTAFAONEIL was visited. Nursing and therapy notes read and reviewed. No chest pain, shortness of breath or abdominal pain. Current Medications: Active Medications Generic Name Dose Route Start Last Admin Trade Name Freq PRN Reason Stop Dose Admin Acetaminophen 650 mg 10/11/18 14:18 10/13/18 06:30 Tylenol Tab* PO 650 mg Q6H PRN Administration FEVER/PAIN Clotrimazole 1 applic 10/11/18 21:00 10/12/18 21:21 Gyne-Lotrimin 1% Vaginal Cream* VAGINAL 1 applic BEDTIME CONY Administration Docusate Sodium 100 mg 10/11/18 21:00 10/13/18 09:14 Colace Cap* PO 100 mg BID CONY Administration Ferrous Sulfate 325 mg 10/12/18 09:00 10/13/18 09:13 Ferrous Sulfate Tab* PO 325 mg DAILY CONY Administration Heparin Sodium (Porcine) 5,000 units 10/11/18 22:00 10/13/18 06:14 Heparin Vial(*) SUBCUT 5,000 units Q8HR CONY Administration Heparin Sodium (Porcine) 1 ml 10/12/18 18:00 10/13/18 06:14 Heparin Flush Picc/Ml/Cvc(*) FLUSH 2 ml 0600,1800 CONY Administration Protocol Lorazepam 1 mg 10/11/18 18:17 10/12/18 21:15 Ativan Tab(*) PO 1 mg Q6H PRN Administration ANXIETY Magnesium Hydroxide 30 ml 10/11/18 14:18 Milk Of Magnesia Liq* PO Q6H PRN CONSTIPATION Methadone HCl 10 mg 10/12/18 17:00 10/13/18 09:13 Dolophine Tab* PO 10 mg Q8H CONY Administration Montelukast Sodium 10 mg 10/12/18 17:00 10/12/18 17:07 Singulair Tab* PO 10 mg 1700 CONY Administration Pantoprazole Sodium 40 mg 10/12/18 09:00 10/13/18 09:14 Protonix Tab* PO 40 mg DAILY CONY Administration Prochlorperazine 10 mg 10/11/18 18:03 Compazine Tab* PO Q8HR PRN NAUSEA Senna 2 tab 10/11/18 14:18 Senokot Tab* PO BEDTIME PRN CONSTIPATION Venlafaxine HCl 150 mg 10/12/18 09:00 10/13/18 09:14 Effexor Xr Cap* PO 150 mg DAILY CONY Administration Vital Signs: Vital Signs Temp Pulse Resp BP Pulse Ox 98.3 F 72 16 113/75 94 10/13/18 06:20 10/13/18 06:20 10/13/18 09:13 10/13/18 06:20 10/13/18 06:20 Lab Results: Laboratory Results - last 24 hr 10/13/18 10/13/18 06:30 06:30 WBC 7.4 RBC 2.89 L Hgb 8.4 L Hct 25 L MCV 86 MCH 29 MCHC 34 RDW 13 Plt Count 323 MPV 8.3 Neut % (Auto) 53.0 Lymph % (Auto) 28.2 [place] % (Auto) 12.4 Eos % (Auto) 4.4 Baso % (Auto) 2.0 Absolute Neuts (auto) 3.9 Absolute Lymphs (auto) 2.1 Absolute Monos (auto) 0.9 H Absolute Eos (auto) 0.3 Absolute Basos (auto) 0.1 Absolute Nucleated RBC 0 Nucleated RBC % 0 Sodium 139 Potassium 3.7 Chloride 105 Carbon Dioxide 27 Anion Gap 7 BUN 19 Creatinine 0.99 H Est GFR ( Amer) 73.1 Est GFR (Non-Af Amer) 60.4 BUN/Creatinine Ratio 19.2 Glucose 95 Calcium 9.0 Total Bilirubin 0.30 AST 19 ALT 6 L Alkaline Phosphatase 112 H Total Protein 6.4 Albumin 3.3 Globulin 3.1 Albumin/Globulin Ratio 1.1 Exam: GEN: no acute distress. Sleeping when I walked into the room but easily aroused to alert and appropriate. LUNGS: Clear to auscultation bilaterally. HEART: Regular rate and rhythm ABDOMEN: Soft, + bowel sounds, non-tender, non-distended EXTREMITIES: LLE in splint. No RLE edema. NEUROLOGIC: Reports left leg is numb from knee down and cannot move toes since admission and procedures; not new. Assessment/Plan: 1. Compartment Syndrome LLE, S/P fasciotomy: NWB LLE, PT/OT 2. Analgesia: Methadone 10 TID, may need to increase to 15 3. History of Polysubstance Abuse: Trying to avoid traditional opioids. 4. Asthma: Singulair 5. DVT Prophylaxis: Heparin 6. Advanced Directives: Has MOLST. DNR 7. GERD: Protonix 8. Acute post-operative anemia: stable. 9. Estimated LOS: IPOC today. 10/13/18 09:20
--- NOTE | 2018-10-13 12:15 | PMRUTEAM ---
PMRU: Team Meeting Current Status: Nursing: Current Status Skin Deviations [Left Lower Incision Leg] Skin Deviations [Bilateral Other Foot] Skin Deviations [Bilateral Other Lower Back] Skin Deviations [Bilateral Rash Medial Thigh] Skin Deviation Description [ Trey wrapped half cast Left Lower Leg] Skin Deviation Description [ dry skin Bilateral Foot] Skin Deviation Description [ dry/scaly - cream helping Bilateral Lower Back] Skin Deviation Description [ red Bilateral Medial Thigh] Physical Therapy: Current Status Bed Mobility Assistance Supervision Transfer Mobility Assistance Contact Guard Assist Transfer/Bed Mobility Rolling Walker Recommended Devices Transfer Mobility Comment hop-to pattern on RLE Ambulation Assistance Contact Guard Assist Ambulation Assistive Devices Rolling Walker Number of Feet Patient 20 Ambulated Ambulation Comment hop-to pattern on RLE Stairs Assistance Not Tested Stairs Recommended Devices Crutches Number of Stairs 3 Occupational Therapy: Current Status Upper Body Dressing Supervision Lower Body Dressing Min Assist Bathing Contact Guard Assist Toileting Contact Guard Assist Toilet Transfer Contact Guard Assist Eating Independent Rec Therapy: Current Status Summary of Assessment and Pt. was in her room with her mother. Rapport has Clinical Impression been established through prior hospitalizations. Pt. presented as euthymic with a full affect. Pt. identified with interests and involvement in them recently. Pt. was open to continued leisure visits and involvement in groups. Treatment Goals Pt. will engage in leisure activities while on the unit. Treatment Plan Provide RT services and encourage involvement. Social Work: Current Status Discharge Plan return home with home care svs Potential for Family Training TBD Anticipated Discharge Home Destination Discharge With home care svs Goals: Physical Therapy: Initial Goals Bed Mobility Assistance Independent Transfer Mobility Assistance Independent Transfer/Bed Mobility Rolling Walker Recommended Devices Ambulation Independent Ambulation Recommended Devices Rolling Walker Ambulation Distance 150 Wheelchair Propulsion Ability Independent Wheelchair Distance (ft) 150 Stairs Assistance Supervision Stair Recommended Devices Crutches Number of Stairs 5 Home Exercise Program Independent Assistance Occupational Therapy: Initial Goals Goals to be Completed in (Days 10-14 ) Upper Body Bathing Routine Modified Independent with Lower Body Bathing Routine Modified Independent with Upper Body Dressing Routine Independent Lower Body Dressing Routine Modified Independent with Toilet Hygeine and Clothing Modified Independent with Management Routine Toilet Transfer Routine Modified Independent with Tub Transfer Routine Modified Independent with Functional Transfers for ADL Modified Independent with Grooming Routine Independent Feeding Routine Independent Light Housekeeping Tasks Minimal Contact Assist Light Housekeeping Tasks light meal prep Gaby with DME Assistive Devices Nutrition: Goals Intervention Goals 1. adequate po intake to support post-op LLE healing and hydration without add'l wt gain 2. achieve and maintain serum electrolytes within acceptable ranges 3. improved renal labs toward normal ranges 4. achieve regulated post-op bowel pattern without constipation (or diarrhea) Social Work: Goals Discharge Plan return home with home care svs Potential for Family Training TBD Anticipated Discharge Home Destination Discharge With home care svs Care Plan: Care Plan ADL's - Improve/Maintain Start: 10/12/18 15:52 Freq: DAILY Status: Active Target: Protocol: Activity Type Activity Date Activity User E-Sign Co-Sign Detail Recorded Client Recorded Date Recorded By Document 10/12/18 15:52 [id number] 10/12/18 15:52 [id number] 10/12/18 15:52 PMRU Outcome: ADL's/ADL Transfers Orders/Interventions Occupational Therapy Evaluation & Treatment Communication Tool in Patient Room Device Yes Address Deficits Secondary To: LLE sx Patient to receive OT 5x/wk for 60-120 Therex min/day Self Care Management Group Therapy UE/LE ADL's with Assist Yes: Gaby ADL Transfers with Assist Yes: Gaby Toileting: Transfers,Clothing Management Yes: Gaby ,Hygeine w/Assist Light Kitchen/Laundry w/Assist Yes: modA Progression Toward Outcome/Goals Progressing Outcome/Goals Met Pt is a 48 year old female who presents with LLE pain, LLE NWB status, balance deficits and decreased endurance that affect her ability to complete bathing, dressing, toileting, toilet transfers and showering. Pt will benefit from skilled OT intervention to maximize independence with ADLs and ADL transfers prior to returning home. Coping/Psych-Improve/Maintain Start: 10/11/18 15:27 Freq: QSHIFT Status: Active Target: Protocol: Activity Type Activity Date Activity User E-Sign Co-Sign Detail Recorded Client Recorded Date Recorded By Document 10/13/18 08:00 [id number] 10/13/18 08:45 [id number] 10/13/18 08:00 PMRU Outcome: Coping/Psychosocial Coping Outcome/Goals Verbalization of Acceptance of Rehab Admit Verbalization of Sense of Control Over Health Status Utilization of Appropriate Problem Solving Techniques Willingness to Participate in Treatment Plan and Basic Needs Psychosocial Outcome/Goals Maintain/ Improve Emotional Health Demonstrates Knowledge of Healthy Coping Mechanisms Available Cooperate/ Participate in Plan Progression Toward Outcome/Goals - Progressing Coping Progression Toward Outcome/Goals - Progressing Psychosocial DVT Prophylaxis- Improve/Maintain Start: 10/11/18 15:27 Freq: QSHIFT Status: Active Target: Protocol: Activity Type Activity Date Activity User E-Sign Co-Sign Detail Recorded Client Recorded Date Recorded By Document 10/13/18 08:00 [id number] 10/13/18 08:45 [id number] 10/13/18 08:00 PMRU Outcome: DVT Prophylaxis Outcome/Goals Remains Free of DVT Complies with DVT Prophylaxis /Treatment Demonstrates Knowledge of DVT Prevention/ Treatment Progression Toward Outcome/Goals Progressing Discharge Planning - Improve/Maintain Start: 10/11/18 15:27 Freq: DAILY Status: Active Target: Protocol: Activity Type Activity Date Activity User E-Sign Co-Sign Detail Recorded Client Recorded Date Recorded By Document 10/13/18 00:00 [id number] 10/13/18 00:08 [id number] 10/13/18 00:00 PMRU Outcome: Discharge Planning Update Patient Family No Outcome/Goals Demonstrates Understanding of Discharge Plan Progression Toward Outcome/Goals Progressing Education-Improve/Maintain Start: 10/11/18 15:27 Freq: QSHIFT Status: Active Target: Protocol: Activity Type Activity Date Activity User E-Sign Co-Sign Detail Recorded Client Recorded Date Recorded By Document 10/13/18 08:00 [id number] 10/13/18 08:45 [id number] 10/13/18 08:00 PMRU Outcome: Education Outcome/Goals Demonstrates Skills Encourage Questions Progression Toward Outcome/Goals Progressing Medication Administration Start: 10/11/18 15:27 Freq: QSHIFT Status: Active Target: Protocol: Activity Type Activity Date Activity User E-Sign Co-Sign Detail Recorded Client Recorded Date Recorded By Document 10/13/18 08:00 [id number] 10/13/18 08:45 [id number] 10/13/18 08:00 PMRU Outcome: Medication Administration Assess Patient Knowledge/Teach Med Yes Education for all Meds Outcome/Goals Patient Independent with Medication Administration at Home Progression Towards Outcome/Goals Progressing Is Patient Going Home on Lovenox? No Mobility- Improve/Maintain Start: 10/13/18 08:35 Freq: DAILY Status: Active Target: Protocol: Activity Type Activity Date Activity User E-Sign Co-Sign Detail Recorded Client Recorded Date Recorded By Document 10/13/18 08:35 [id number] 10/13/18 08:37 [id number] 10/13/18 08:35 PMRU Outcome: Mobility Physical Therapy Evaluation and Yes Treatment Activity OOB with Assistance Yes NWB Yes: LLE Device Yes: FWW Assistance Yes: CGA-Min A Patient to be seen 5x/wk for 60-120 min/ Therex day for: Mobility Training Gait Training W/C Mobility Balance Outcome/Goals Maintain/ Achieve Baseline Mobility Status Improve Mobility Status Demonstrates Proper Use of Assistive Devices Free from Complications of Immobility Bed Mobility Yes: Ind Transfers Yes: Mod I Gait x ft Yes: Mod I x150ft W/C Mobility x ft Yes: Mod I Up/Down Stairs Yes: Supervision x5, axillary crutches Pain/Comfort- Improve/Maintain Start: 10/11/18 15:27 Freq: QSHIFT Status: Active Target: Protocol: Activity Type Activity Date Activity User E-Sign Co-Sign Detail Recorded Client Recorded Date Recorded By Document 10/13/18 08:00 [id number] [email or web address] 10/13/18 08:45 [id number] 10/13/18 08:00 PMRU Outcome: Pain/Comfort Outcome/Goals Demonstrates Knowledge and Use of Available Comfort Measures Achieves Acceptable Comfort/Pain Level as Determined by Patient/Condit Maintain Comfort Level Allowing Patient to Fully Participate in Rehab Progression Toward Outcome/Goals Progressing Medicine Note: Length of Stay: [13 more days] Anticipated Discharge Destination: Home Tentative Discharge Date: [10/26/18] Discharged to: [home]
[2018-10-13] MEDS: LORazepam TAB(*) 1 MG PO PRN (15:18)
[2018-10-13] MEDS: Montelukast Sodium TAB* 10 MG PO SCH (16:58)
[2018-10-14] MEDS: Methadone TAB* 10 MG PO SCH ×3 (01:05→17:01)
[2018-10-14] MEDS: Docusate CAP* 100 MG PO SCH ×3 (01:05→23:15)
[2018-10-14] MEDS: Clotrimazole 1% VAGINAL CREAM* 45 GM VAGINAL SCH ×2 (01:05→21:01)
[2018-10-14] MEDS: Acetaminophen TAB* 325 MG PO PRN ×3 (04:55→23:15)
[2018-10-14] MEDS: Heparin VIAL(*) 5000 UNITS/ML VIAL (FIVE THOUSAND) SUBCUT SCH ×3 (05:59→23:17)
[2018-10-14] MEDS: Ferrous Sulfate TAB* 325 MG PO SCH (08:56)
[2018-10-14] MEDS: Pantoprazole TAB * 40 MG TAB PO SCH (08:57)
[2018-10-14] MEDS: Venlafaxine EXT RELEASE CAP* 75 MG PO SCH (08:57)
--- NOTE | 2018-10-14 09:08 | PN ---
Progress Note Date of Service: 10/14/18 Note: EDD LOVING was visited. Nursing and therapy notes read and reviewed. No new issues overnight. No chest pain, shortness of breath or abdominal pain. Current Medications: Active Medications Generic Name Dose Route Start Last Admin Trade Name Freq PRN Reason Stop Dose Admin Acetaminophen 650 mg 10/11/18 14:18 10/14/18 04:55 Tylenol Tab* PO 650 mg Q6H PRN Administration FEVER/PAIN Clotrimazole 1 applic 10/11/18 21:00 10/14/18 01:05 Gyne-Lotrimin 1% Vaginal Cream* VAGINAL 1 applic BEDTIME CONY Administration Docusate Sodium 100 mg 10/11/18 21:00 10/14/18 08:57 Colace Cap* PO 100 mg BID CONY Administration Ferrous Sulfate 325 mg 10/12/18 09:00 10/14/18 08:56 Ferrous Sulfate Tab* PO 325 mg DAILY CONY Administration Heparin Sodium (Porcine) 5,000 units 10/11/18 22:00 10/14/18 05:59 Heparin Vial(*) SUBCUT 5,000 units Q8HR CONY Administration Heparin Sodium (Porcine) 1 ml 10/12/18 18:00 10/14/18 05:59 Heparin Flush Picc/Ml/Cvc(*) FLUSH 2 ml 0600,1800 CONY Administration Protocol Lorazepam 1 mg 10/11/18 18:17 10/13/18 15:18 Ativan Tab(*) PO 1 mg Q6H PRN Administration ANXIETY Magnesium Hydroxide 30 ml 10/11/18 14:18 Milk Of Magnesia Liq* PO Q6H PRN CONSTIPATION Methadone HCl 10 mg 10/12/18 17:00 10/14/18 08:56 Dolophine Tab* PO 10 mg Q8H CONY Administration Montelukast Sodium 10 mg 10/12/18 17:00 10/13/18 16:58 Singulair Tab* PO 10 mg 1700 CONY Administration Pantoprazole Sodium 40 mg 10/12/18 09:00 10/14/18 08:57 Protonix Tab* PO 40 mg DAILY CONY Administration Prochlorperazine 10 mg 10/11/18 18:03 Compazine Tab* PO Q8HR PRN NAUSEA Senna 2 tab 10/11/18 14:18 Senokot Tab* PO BEDTIME PRN CONSTIPATION Venlafaxine HCl 150 mg 10/12/18 09:00 10/14/18 08:57 Effexor Xr Cap* PO 150 mg DAILY CONY Administration Vital Signs: Vital Signs Temp Pulse Resp BP Pulse Ox 97.3 F 65 18 122/72 98 10/14/18 04:52 10/14/18 04:52 10/14/18 08:56 10/14/18 04:52 10/14/18 04:52 Exam: GEN: no acute distress. alert and appropriate. LUNGS: Clear to auscultation bilaterally. HEART: Regular rate and rhythm ABDOMEN: Soft, + bowel sounds, non-tender, non-distended EXTREMITIES: LLE in splint. No RLE edema. NEUROLOGIC: Left leg is numb from knee down and cannot move toes since admission and procedures; not new. RLE intact motor and sensation. Assessment/Plan: 1. Compartment Syndrome LLE, S/P fasciotomy: NWB LLE, PT/OT. Call ortho Tuesday to find out plan for splint and any sutures. 2. Analgesia: Methadone 10mg TID seems well tolerated so far. 3. History of Polysubstance Abuse: Trying to avoid traditional opioids. 4. Asthma: Singulair 5. DVT Prophylaxis: Heparin 6. Advanced Directives: Has MOLST. DNR 7. GERD: Protonix 8. Acute post-operative anemia: stable. 9. Estimated LOS: 10/26/18 to her home. Her parents will not allow her to stay with them per SW. 10/14/18 09:06
[2018-10-14] MEDS: Montelukast Sodium TAB* 10 MG PO SCH (17:01)
[2018-10-14] MEDS: LORazepam TAB(*) 1 MG PO PRN ×2 (17:45→23:18)
[2018-10-14] MEDS: Senna TAB PO PRN (23:16)
[2018-10-15] MEDS: Methadone TAB* 10 MG PO SCH ×3 (01:02→22:47)
[2018-10-15] MEDS: Heparin VIAL(*) 5000 UNITS/ML VIAL (FIVE THOUSAND) SUBCUT SCH ×3 (06:52→22:48)
--- NOTE | 2018-10-15 09:01 | PN ---
Progress Note Date of Service: 10/15/18 Note: EDD LOVING was visited. Nursing and therapy notes read and reviewed. She had quite a bit of pain yesterday when mobilizing with therapies. Gets AM dose of methadone at 0900 when therapy is already starting. Pain is a burning quality. No BM x2 days. Current Medications: Active Medications Generic Name Dose Route Start Last Admin Trade Name Freq PRN Reason Stop Dose Admin Acetaminophen 650 mg 10/11/18 14:18 10/14/18 23:15 Tylenol Tab* PO 650 mg Q6H PRN Administration FEVER/PAIN Clotrimazole 1 applic 10/11/18 21:00 10/14/18 21:01 Gyne-Lotrimin 1% Vaginal Cream* VAGINAL 1 applic BEDTIME CONY Administration Docusate Sodium 100 mg 10/11/18 21:00 10/14/18 23:15 Colace Cap* PO 100 mg BID CONY Administration Ferrous Sulfate 325 mg 10/12/18 09:00 10/14/18 08:56 Ferrous Sulfate Tab* PO 325 mg DAILY CONY Administration Heparin Sodium (Porcine) 5,000 units 10/11/18 22:00 10/15/18 06:52 Heparin Vial(*) SUBCUT 5,000 units Q8HR CONY Administration Heparin Sodium (Porcine) 1 ml 10/12/18 18:00 10/15/18 06:53 Heparin Flush Picc/Ml/Cvc(*) FLUSH 2 ml 0600,1800 CONY Administration Protocol Lorazepam 1 mg 10/11/18 18:17 10/14/18 23:18 Ativan Tab(*) PO 1 mg Q6H PRN Administration ANXIETY Magnesium Hydroxide 30 ml 10/11/18 14:18 Milk Of Magnesia Liq* PO Q6H PRN CONSTIPATION Methadone HCl 15 mg 10/15/18 15:00 Dolophine Tab* PO 0700,1500,2300 CONY Montelukast Sodium 10 mg 10/12/18 17:00 10/14/18 17:01 Singulair Tab* PO 10 mg 1700 CONY Administration Pantoprazole Sodium 40 mg 10/12/18 09:00 10/14/18 08:57 Protonix Tab* PO 40 mg DAILY CONY Administration Prochlorperazine 10 mg 10/11/18 18:03 Compazine Tab* PO Q8HR PRN NAUSEA Senna 2 tab 10/11/18 14:18 10/14/18 23:16 Senokot Tab* PO 2 tab BEDTIME PRN Administration CONSTIPATION Venlafaxine HCl 150 mg 10/12/18 09:00 10/14/18 08:57 Effexor Xr Cap* PO 150 mg DAILY CONY Administration Vital Signs: Vital Signs Temp Pulse Resp BP Pulse Ox 97.8 F 72 16 106/68 95 10/15/18 06:53 10/15/18 06:53 10/15/18 06:53 10/15/18 06:53 10/15/18 06:53 Exam: GEN: no acute distress. alert and appropriate. LUNGS: Clear to auscultation bilaterally. HEART: Regular rate and rhythm ABDOMEN: Soft, + bowel sounds, non-tender, non-distended EXTREMITIES: LLE in splint. No RLE edema. NEUROLOGIC: Left leg is numb from knee down and cannot move toes since admission and procedures; not new. RLE intact motor and sensation. Assessment/Plan: 1. Compartment Syndrome LLE, S/P fasciotomy: NWB LLE, PT/OT. Call ortho Tuesday to find out plan for splint and any sutures. 2. Analgesia: Increase Methadone to 15mg tid and adjust timing (0700,1500,2300) . Consider addition of neuropathic pain med like gabapentin. 3. History of Polysubstance Abuse: Trying to avoid traditional opioids. 4. Asthma: Singulair 5. DVT Prophylaxis: Heparin 6. Advanced Directives: Has MOLST. DNR 7. GERD: Protonix 8. Acute post-operative anemia: stable. 9. Estimated LOS: 10/26/18 to her home. Her parents will not allow her to stay with them per SW. 10/15/18 09:00
[2018-10-15] MEDS: Ferrous Sulfate TAB* 325 MG PO SCH (09:33)
[2018-10-15] MEDS: Pantoprazole TAB * 40 MG TAB PO SCH (09:33)
[2018-10-15] MEDS: Docusate CAP* 100 MG PO SCH ×2 (09:33→19:55)
[2018-10-15] MEDS: Venlafaxine EXT RELEASE CAP* 75 MG PO SCH (09:33)
[2018-10-15] MEDS: LORazepam TAB(*) 1 MG PO PRN ×2 (11:42→18:11)
[2018-10-15] MEDS: Acetaminophen TAB* 325 MG PO PRN ×2 (11:42→19:55)
[2018-10-15] MEDS: Prochlorperazine TAB* 10 MG PO PRN (17:09)
[2018-10-15] MEDS: Montelukast Sodium TAB* 10 MG PO SCH (17:55)
[2018-10-15] MEDS: Magnesium Hydroxide LIQ* 30 ML UDC PO PRN (18:16)
[2018-10-15] MEDS: Clotrimazole 1% VAGINAL CREAM* 45 GM VAGINAL SCH (19:54)
[2018-10-15] MEDS: Senna TAB PO PRN (19:55)
[2018-10-16] MEDS: Methadone TAB* 10 MG PO SCH ×2 (06:38→14:39)
[2018-10-16] MEDS: Heparin VIAL(*) 5000 UNITS/ML VIAL (FIVE THOUSAND) SUBCUT SCH ×3 (06:40→21:31)
[2018-10-16] MEDS: Magnesium Hydroxide LIQ* 30 ML UDC PO PRN (09:19)
[2018-10-16] MEDS: Ferrous Sulfate TAB* 325 MG PO SCH (09:20)
[2018-10-16] MEDS: Venlafaxine EXT RELEASE CAP* 75 MG PO SCH (09:20)
[2018-10-16] MEDS: Docusate CAP* 100 MG PO SCH ×2 (09:20→21:32)
[2018-10-16] MEDS: Pantoprazole TAB * 40 MG TAB PO SCH (09:20)
[2018-10-16] MEDS: Acetaminophen TAB* 325 MG PO PRN (15:43)
[2018-10-16] MEDS: LORazepam TAB(*) 1 MG PO PRN (17:17)
[2018-10-16] MEDS: Montelukast Sodium TAB* 10 MG PO SCH (17:17)
--- NOTE | 2018-10-16 18:06 | PN ---
Progress Note Date of Service: 10/16/18 Note: EDD LOVING was visited. Therapy notes read and reviewed. Left leg examined with Dr. Wen. Post op dressing removed. Suture lines look clean. Medial wound lindsey can be removed 1-2 days. Lateral 7-10 days. 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 Per Dr. Wen, she can weight bear short distances with CAM boot. CAM boot should be off in bed, she will need skin checks after boot removed. Multipodus boot in bed. Her pain is well controlled with Methadone. Current Medications: Active Medications Generic Name Dose Route Start Last Admin Trade Name Freq PRN Reason Stop Dose Admin Acetaminophen 650 mg 10/11/18 14:18 10/16/18 15:43 Tylenol Tab* PO 650 mg Q6H PRN Administration FEVER/PAIN Clotrimazole 1 applic 10/11/18 21:00 10/15/18 19:54 Gyne-Lotrimin 1% Vaginal Cream* VAGINAL 1 applic BEDTIME CONY Administration Docusate Sodium 100 mg 10/11/18 21:00 10/16/18 09:20 Colace Cap* PO 100 mg BID CONY Administration Ferrous Sulfate 325 mg 10/12/18 09:00 10/16/18 09:20 Ferrous Sulfate Tab* PO 325 mg DAILY CONY Administration Heparin Sodium (Porcine) 5,000 units 10/11/18 22:00 10/16/18 14:39 Heparin Vial(*) SUBCUT 5,000 units Q8HR CONY Administration Heparin Sodium (Porcine) 1 ml 10/12/18 18:00 10/16/18 17:17 Heparin Flush Picc/Ml/Cvc(*) FLUSH 2 ml 0600,1800 CONY Administration Protocol Lorazepam 1 mg 10/11/18 18:17 10/16/18 17:17 Ativan Tab(*) PO 1 mg Q6H PRN Administration ANXIETY Magnesium Hydroxide 30 ml 10/11/18 14:18 10/16/18 09:19 Milk Of Magnesia Liq* PO 30 ml Q6H PRN Administration CONSTIPATION Methadone HCl 15 mg 10/15/18 15:00 10/16/18 14:39 Dolophine Tab* PO 15 mg 0700,1500,2300 CONY Administration Montelukast Sodium 10 mg 10/12/18 17:00 02/04/19 17:17 Singulair Tab* PO 10 mg 1700 CONY Administration Pantoprazole Sodium 40 mg 10/12/18 09:00 10/16/18 09:20 Protonix Tab* PO 40 mg DAILY CONY Administration Prochlorperazine 10 mg 10/11/18 18:03 10/15/18 17:09 Compazine Tab* PO 10 mg Q8HR PRN Administration NAUSEA Senna 2 tab 10/11/18 14:18 10/15/18 19:55 Senokot Tab* PO 2 tab BEDTIME PRN Administration CONSTIPATION Venlafaxine HCl 150 mg 10/12/18 09:00 10/16/18 09:20 Effexor Xr Cap* PO 150 mg DAILY CONY Administration Vital Signs: Vital Signs Temp Pulse Resp BP Pulse Ox 97.9 F 76 16 103/67 97 10/16/18 15:51 10/16/18 15:51 10/16/18 17:17 10/16/18 15:51 10/16/18 17:30 Exam: GEN: no acute distress. alert and appropriate. LUNGS: Clear to auscultation bilaterally. HEART: Regular rate and rhythm ABDOMEN: Soft, + bowel sounds, non-tender, non-distended EXTREMITIES: LLE examined. Suture lines clean. No drainage. No DF/PF NEUROLOGIC: Left leg is numb from knee down and cannot move toes since admission and procedures; not new. RLE intact motor and sensation. Assessment/Plan: 1. Compartment Syndrome LLE, S/P fasciotomy: NWB LLE, PT/OT. 2. Analgesia: Methadone 15mg tid (0700,1500,2300). Consider addition of neuropathic pain med like gabapentin. 3. History of Polysubstance Abuse: Trying to avoid traditional opioids. 4. Asthma: Singulair 5. DVT Prophylaxis: Heparin 6. Advanced Directives: Has MOLST. DNR 7. GERD: Protonix 8. Acute post-operative anemia: stable. 9. Estimated LOS: 10/26/18 to her home. Her parents will not allow her to stay with them per SW. 10/16/18 18:06
[2018-10-16] MEDS: Clotrimazole 1% VAGINAL CREAM* 45 GM VAGINAL SCH (21:32)
[2018-10-17] MEDS: Methadone TAB* 10 MG PO SCH ×4 (00:13→23:30)
[2018-10-17] MEDS: Heparin VIAL(*) 5000 UNITS/ML VIAL (FIVE THOUSAND) SUBCUT SCH ×3 (06:17→21:20)
[2018-10-17] MEDS: Docusate CAP* 100 MG PO SCH ×2 (08:24→21:19)
[2018-10-17] MEDS: Ferrous Sulfate TAB* 325 MG PO SCH (08:24)
[2018-10-17] MEDS: Pantoprazole TAB * 40 MG TAB PO SCH (08:25)
[2018-10-17] MEDS: Venlafaxine EXT RELEASE CAP* 75 MG PO SCH (08:25)
--- NOTE | 2018-10-17 12:58 | PMRUTEAM ---
PMRU: Team Meeting Current Status: Nursing: Current Status Skin Deviations [Right Upper Other Arm] Skin Deviations [Left Lower Incision Leg] Skin Deviations [Bilateral Other Foot] Skin Deviations [Bilateral Other Lower Back] Skin Deviations [Bilateral Rash Medial Thigh] Skin Deviation Description [ pink irritation adjacent to picc drsg tegaderm Right Upper Arm] abx cream applied Skin Deviation Description [ multipodus boot in place Left Lower Leg] Skin Deviation Description [ dry, flaky skin; lotion applied where able Bilateral Foot] Skin Deviation Description [ dry skin, lotion applied Bilateral Lower Back] Skin Deviation Description [ creamin place Bilateral Medial Thigh] Physical Therapy: Current Status Bed Mobility Assistance Supervision Transfer Mobility Assistance Supervision Transfer/Bed Mobility Rolling Walker Recommended Devices Transfer Mobility Comment hop-to pattern on RLE Ambulation Assistance Supervision Ambulation Assistive Devices Rolling Walker Number of Feet Patient 1x75', 1x35' Ambulated Ambulation Comment 75' hopping, 35' ambulating with CAM boot on LLE Stairs Assistance Contact Guard Assist Stairs Recommended Devices Two Rails Number of Stairs 3 Manual Wheelchair Control/ Bilateral UE's Technique Wheelchair Propulsion Ability Independent Wheelchair Distance (ft) 220 Objective Comments able to hop RLE up onto 3" step x10 and 6" step x10 with B hands on // bars Occupational Therapy: Current Status Upper Body Dressing Supervision Lower Body Dressing Contact Guard Assist Bathing Supervision,Contact Guard Assist Toileting Contact Guard Assist Toilet Transfer Contact Guard Assist Shower Transfer Contact Guard Assist Eating Independent Rec Therapy: Current Status Summary of Assessment and RT assessment complete and pt. has been active in Clinical Impression daily leisure sessions. Pt. interested in cards games, outdoor time, and has been provided with a variety of activities for independent involvement. Pt. is in good spirits during visits although presents as tired after therapy and after medications. Treatment Goals Pt. will continue to engage in leisure activities while on the unit. Treatment Plan Provide RT services and encourage involvement. Provide support as needed. Social Work: Current Status Discharge Plan return home with home care svs and family support Potential for Family Training pt's parents are involved and supportive Anticipated Discharge Home Destination Discharge With VNS and family support Nutrition: Current Status Monitoring Pt admitted to [facility] with hx compartment syndrome, s/p multiple debridements. Intake improving to 90- 100% of meals 2/3-4. Eating indepedently. Skin intact per nursing assessments. BMs noted 2/3, 2/4 . Making progress towards goals; nutrition assessment to follow per protocol (10/18/18)/ Goals: Physical Therapy: Initial Goals Bed Mobility Assistance Independent Transfer Mobility Assistance Independent Transfer/Bed Mobility Rolling Walker Recommended Devices Ambulation Independent Ambulation Recommended Devices Rolling Walker Ambulation Distance 150 Wheelchair Propulsion Ability Independent Wheelchair Distance (ft) 150 Stairs Assistance Supervision Stair Recommended Devices One Rail Number of Stairs 5 Home Exercise Program Independent Assistance Physical Therapy: Updated Goals Transfer/Bed Mobility Rolling Walker Recommended Devices Occupational Therapy: Initial Goals Goals to be Completed in (Days 10-14 ) Upper Body Bathing Routine Modified Independent with Lower Body Bathing Routine Modified Independent with Upper Body Dressing Routine Independent Lower Body Dressing Routine Modified Independent with Toilet Hygeine and Clothing Modified Independent with Management Routine Toilet Transfer Routine Modified Independent with Tub Transfer Routine Modified Independent with Functional Transfers for ADL Modified Independent with Grooming Routine Independent Feeding Routine Independent Light Housekeeping Tasks Minimal Contact Assist Light Housekeeping Tasks light meal prep Gaby with DME Assistive Devices Nutrition: Goals Intervention Goals 1. adequate po intake to support post-op LLE healing and hydration without add'l wt gain 2. achieve and maintain serum electrolytes within acceptable ranges 3. improved renal labs toward normal ranges 4. achieve regulated post-op bowel pattern without constipation (or diarrhea) Social Work: Goals Discharge Plan return home with home care svs and family support Potential for Family Training pt's parents are involved and supportive Anticipated Discharge Home Destination Discharge With VNS and family support Care Plan: Care Plan ADL's - Improve/Maintain Start: 10/12/18 15:52 Freq: DAILY Status: Active Target: Protocol: Activity Type Activity Date Activity User E-Sign Co-Sign Detail Recorded Client Recorded Date Recorded By Document 10/17/18 11:23 [id number] [id number] 10/17/18 11:24 [id number] 10/17/18 11:23 PMRU Outcome: ADL's/ADL Transfers Orders/Interventions Occupational Therapy Evaluation & Treatment Communication Tool in Patient Room Device Yes Address Deficits Secondary To: LLE sx Patient to receive OT 5x/wk for 60-120 Therex min/day Self Care Management Group Therapy UE/LE ADL's with Assist Yes: Gaby ADL Transfers with Assist Yes: Gaby Toileting: Transfers,Clothing Management Yes: Gaby ,Hygeine w/Assist Light Kitchen/Laundry w/Assist Yes: modA Progression Toward Outcome/Goals Progressing Outcome/Goals Met Pt participated well in ADL treatment session, tolerated shower well with slight frustration initially over having to cover LLE and RUE PICC site. Pt will benefit from continued skilled OT intervention to maximize independence and safety. Coping/Psych-Improve/Maintain Start: 10/11/18 15:27 Freq: QSHIFT Status: Active Target: Protocol: Activity Type Activity Date Activity User E-Sign Co-Sign Detail Recorded Client Recorded Date Recorded By Document 10/17/18 00:37 [id number] 10/17/18 00:38 [id number] 10/17/18 00:37 PMRU Outcome: Coping/Psychosocial Coping Outcome/Goals Verbalization of Acceptance of Rehab Admit Verbalization of Sense of Control Over Health Status Utilization of Appropriate Problem Solving Techniques Willingness to Participate in Treatment Plan and Basic Needs Utilization of Available Support Systems Absence of Destructive Behavior to Self/Others Psychosocial Outcome/Goals Maintain/ Improve Emotional Health Demonstrates Knowledge of Healthy Coping Mechanisms Available Cooperate/ Participate in Plan Progression Toward Outcome/Goals - Progressing Coping Progression Toward Outcome/Goals - Progressing Psychosocial DVT Prophylaxis- Improve/Maintain Start: 10/11/18 15:27 Freq: QSHIFT Status: Active Target: Protocol: Activity Type Activity Date Activity User E-Sign Co-Sign Detail Recorded Client Recorded Date Recorded By Document 10/17/18 00:37 [id number] 10/17/18 00:38 [id number] 10/17/18 00:37 PMRU Outcome: DVT Prophylaxis Outcome/Goals Remains Free of DVT Complies with DVT Prophylaxis /Treatment Demonstrates Knowledge of DVT Prevention/ Treatment Progression Toward Outcome/Goals Progressing Discharge Planning - Improve/Maintain Start: 10/11/18 15:27 Freq: DAILY Status: Active Target: Protocol: Activity Type Activity Date Activity User E-Sign Co-Sign Detail Recorded Client Recorded Date Recorded By Document 10/17/18 00:37 [id number] 10/17/18 00:38 [id number] 10/17/18 00:37 PMRU Outcome: Discharge Planning Update Patient Family No Outcome/Goals Demonstrates Understanding of Discharge Plan Progression Toward Outcome/Goals Progressing Education-Improve/Maintain Start: 10/11/18 15:27 Freq: QSHIFT Status: Active Target: Protocol: Activity Type Activity Date Activity User E-Sign Co-Sign Detail Recorded Client Recorded Date Recorded By Document 10/17/18 00:37 [id number] 10/17/18 00:38 [id number] 10/17/18 00:37 PMRU Outcome: Education Outcome/Goals Demonstrates Skills Encourage Questions Progression Toward Outcome/Goals Progressing Medication Administration Start: 10/11/18 15:27 Freq: QSHIFT Status: Active Target: Protocol: Activity Type Activity Date Activity User E-Sign Co-Sign Detail Recorded Client Recorded Date Recorded By Document 10/17/18 00:37 [id number] 10/17/18 00:38 [id number] 10/17/18 00:37 PMRU Outcome: Medication Administration Assess Patient Knowledge/Teach Med Yes Education for all Meds Outcome/Goals Patient Independent with Medication Administration at Home Progression Towards Outcome/Goals Progressing Is Patient Going Home on Lovenox? No Mobility- Improve/Maintain Start: 10/13/18 08:35 Freq: DAILY Status: Active Target: Protocol: Activity Type Activity Date Activity User E-Sign Co-Sign Detail Recorded Client Recorded Date Recorded By Document 10/13/18 08:35 [id number] 10/13/18 08:37 [id number] 10/13/18 08:35 PMRU Outcome: Mobility Physical Therapy Evaluation and Yes Treatment Activity OOB with Assistance Yes NWB Yes: LLE Device Yes: FWW Assistance Yes: CGA-Min A Patient to be seen 5x/wk for 60-120 min/ Therex day for: Mobility Training Gait Training W/C Mobility Balance Outcome/Goals Maintain/ Achieve Baseline Mobility Status Improve Mobility Status Demonstrates Proper Use of Assistive Devices Free from Complications of Immobility Bed Mobility Yes: Ind Transfers Yes: Mod I Gait x ft Yes: Mod I x150ft W/C Mobility x ft Yes: Mod I Up/Down Stairs Yes: Supervision x5, axillary crutches Pain/Comfort- Improve/Maintain Start: 10/11/18 15:27 Freq: QSHIFT Status: Active Target: Protocol: Activity Type Activity Date Activity User E-Sign Co-Sign Detail Recorded Client Recorded Date Recorded By Document 10/17/18 00:37 [id number] 10/17/18 00:38 [id number] 10/17/18 00:37 PMRU Outcome: Pain/Comfort Outcome/Goals Demonstrates Knowledge and Use of Available Comfort Measures Achieves Acceptable Comfort/Pain Level as Determined by Patient/Condit Maintain Comfort Level Allowing Patient to Fully Participate in Rehab Progression Toward Outcome/Goals Progressing Outcome/Goals Met Comment scheduled medication given, and ice pack in place Medicine Note: Length of Stay: 9 days Anticipated Discharge Destination: Home Tentative Discharge Date: 10/26/18 Discharged to: home
[2018-10-17] MEDS: LORazepam TAB(*) 1 MG PO PRN (17:37)
[2018-10-17] MEDS: Montelukast Sodium TAB* 10 MG PO SCH (17:38)
[2018-10-17] MEDS: Moisturizing CREAM* 120 GM JAR TOPICAL SCH ×2 (17:49→21:18)
--- NOTE | 2018-10-17 17:58 | PN ---
Progress Note Date of Service: 10/17/18 Note: EDD LOVING was visited. Therapy notes read and reviewed. She was discussed in interdisciplinary team rounds. She is moving better now that she can wear CAM walker boot. Skin looks ok. Pain well controlled on Methadone 15 mg TID. Current Medications: Active Medications Generic Name Dose Route Start Last Admin Trade Name Freq PRN Reason Stop Dose Admin Acetaminophen 650 mg 10/11/18 14:18 10/16/18 15:43 Tylenol Tab* PO 650 mg Q6H PRN Administration FEVER/PAIN Clotrimazole 1 applic 10/11/18 21:00 10/16/18 21:32 Gyne-Lotrimin 1% Vaginal Cream* VAGINAL 1 applic BEDTIME CONY Administration Docusate Sodium 100 mg 10/11/18 21:00 10/17/18 08:24 Colace Cap* PO 100 mg BID CONY Administration Ferrous Sulfate 325 mg 10/12/18 09:00 10/17/18 08:24 Ferrous Sulfate Tab* PO 325 mg DAILY CONY Administration Heparin Sodium (Porcine) 5,000 units 10/11/18 22:00 10/17/18 14:18 Heparin Vial(*) SUBCUT 5,000 units Q8HR CONY Administration Heparin Sodium (Porcine) 1 ml 10/12/18 18:00 10/17/18 17:39 Heparin Flush Picc/Ml/Cvc(*) FLUSH 2 ml 0600,1800 CONY Administration Protocol Lorazepam 1 mg 10/11/18 18:17 10/17/18 17:37 Ativan Tab(*) PO 1 mg Q6H PRN Administration ANXIETY Magnesium Hydroxide 30 ml 10/11/18 14:18 10/16/18 09:19 Milk Of Magnesia Liq* PO 30 ml Q6H PRN Administration CONSTIPATION Methadone HCl 15 mg 10/15/18 15:00 10/17/18 14:19 Dolophine Tab* PO 15 mg 0700,1500,2300 CONY Administration Montelukast Sodium 10 mg 10/12/18 17:00 10/17/18 17:38 Singulair Tab* PO 10 mg 1700 CONY Administration Multi-Ingredient Ointment 1 applic 10/17/18 21:00 10/17/18 17:49 Hydrocerin* TOPICAL 1 applic BID COYN Administration Pantoprazole Sodium 40 mg 10/12/18 09:00 10/17/18 08:25 Protonix Tab* PO 40 mg DAILY CONY Administration Prochlorperazine 10 mg 10/11/18 18:03 10/15/18 17:09 Compazine Tab* PO 10 mg Q8HR PRN Administration NAUSEA Senna 2 tab 10/11/18 14:18 10/15/18 19:55 Senokot Tab* PO 2 tab BEDTIME PRN Administration CONSTIPATION Venlafaxine HCl 150 mg 10/12/18 09:00 10/17/18 08:25 Effexor Xr Cap* PO 150 mg DAILY CONY Administration Vital Signs: Vital Signs Temp Pulse Resp BP Pulse Ox 98.1 F 81 18 118/76 99 10/17/18 15:45 10/17/18 15:45 10/17/18 17:37 10/17/18 15:45 10/17/18 15:45 Exam: GEN: no acute distress. alert and appropriate. LUNGS: Clear to auscultation bilaterally. HEART: Regular rate and rhythm ABDOMEN: Soft, + bowel sounds, non-tender, non-distended EXTREMITIES: LLE examined. Suture lines clean. No drainage. No DF/PF NEUROLOGIC: Left leg is numb from knee down and cannot move toes since admission and procedures; not new. RLE intact motor and sensation. Assessment/Plan: 1. Compartment Syndrome LLE, S/P fasciotomy: NWB LLE, PT/OT. 2. Analgesia: Methadone 15mg tid (0700,1500,2300). Consider addition of neuropathic pain med like gabapentin. 3. History of Polysubstance Abuse: Trying to avoid traditional opioids. Methadone for pain 4. Asthma: Singulair 5. DVT Prophylaxis: Heparin 6. Advanced Directives: Has MOLST. DNR 7. GERD: Protonix 8. Acute post-operative anemia: stable. 9. Estimated LOS: 10/26/18 to her home. 10/17/18 17:59
[2018-10-17] MEDS: Clotrimazole 1% VAGINAL CREAM* 45 GM VAGINAL SCH (21:20)
[2018-10-18] MEDS: Acetaminophen TAB* 325 MG PO PRN ×2 (00:51→19:17)
[2018-10-18] MEDS: Heparin VIAL(*) 5000 UNITS/ML VIAL (FIVE THOUSAND) SUBCUT SCH ×3 (06:26→22:44)
[2018-10-18] MEDS: Methadone TAB* 10 MG PO SCH ×3 (06:41→22:45)
[2018-10-18 07:00] LABS: ABS Basophils 0.1 10^3/ul (0-0.2); ABS Eosinophils 0.3 10^3/ul (0-0.6); ABS Lymphocytes 2.3 10^3/ul (1.0-4.8); ABS Neutrophils 3.5 10^3/ul (1.5-7.7); ABS Nucleated RBC 0 10^3/ul; Eosinophil % 4.1 %; Hematocrit 26 % (35-47); Mean Corpuscular HGB Conc 35 g/dl (31-36); Mean Corpuscular Hemoglobin 30 pg (27-31); Mean Corpuscular Volume 85 fL (80-97); Mean Platelet Volume 7.6 fL (7.4-10.4); Nucleated Red Blood Cells % 0.1; Platelet Count 285 10^3/ul (150-450); Red Blood Count 3.05 10^6/ul (4.00-5.40); Red Cell Distribution Width 13 % (10.5-15); White Blood Count 7.2 10^3/ul (3.5-10.8)
[2018-10-18 07:17] LABS: Albumin 3.6 g/dL (3.2-5.2); Albumin/Globulin Ratio 1.2 (1-3); BUN/Creatinine Ratio 17.3 (8-20); Calcium 9.3 mg/dL (8.6-10.3); EGFR African American 64.7 (>60); EGFR Non-African American 53.5 (>60); Globulin 2.9 g/dL (2-4); Total Bilirubin 0.3 mg/dL (0.2-1.0); Total Protein 6.5 g/dL (6.4-8.9)
[2018-10-18] MEDS: Docusate CAP* 100 MG PO SCH ×2 (08:44→20:01)
[2018-10-18] MEDS: Venlafaxine EXT RELEASE CAP* 75 MG PO SCH (08:44)
[2018-10-18] MEDS: Pantoprazole TAB * 40 MG TAB PO SCH (08:44)
[2018-10-18] MEDS: Ferrous Sulfate TAB* 325 MG PO SCH (08:44)
[2018-10-18] MEDS: LORazepam TAB(*) 1 MG PO PRN ×2 (09:48→19:17)
[2018-10-18] MEDS: Moisturizing CREAM* 120 GM JAR TOPICAL SCH ×3 (09:50→20:07)
[2018-10-18] MEDS: Magnesium Hydroxide LIQ* 30 ML UDC PO PRN (17:21)
[2018-10-18] MEDS: Montelukast Sodium TAB* 10 MG PO SCH (17:56)
--- NOTE | 2018-10-18 19:20 | PN ---
Progress Note Date of Service: 10/18/18 Note: EDD LOVING was visited. Therapy notes read and reviewed. Her lindsey were removed from her medial wound. Steri-strips applied. She is healing well. No sensation below mid-smalls. Current Medications: Active Medications Generic Name Dose Route Start Last Admin Trade Name Freq PRN Reason Stop Dose Admin Acetaminophen 650 mg 10/11/18 14:18 10/18/18 00:51 Tylenol Tab* PO 650 mg Q6H PRN Administration FEVER/PAIN Clotrimazole 1 applic 10/11/18 21:00 10/17/18 21:20 Gyne-Lotrimin 1% Vaginal Cream* VAGINAL 1 applic BEDTIME CONY Administration Docusate Sodium 100 mg 10/11/18 21:00 10/18/18 08:44 Colace Cap* PO 100 mg BID CONY Administration Ferrous Sulfate 325 mg 10/12/18 09:00 10/18/18 08:44 Ferrous Sulfate Tab* PO 325 mg DAILY CONY Administration Heparin Sodium (Porcine) 5,000 units 10/11/18 22:00 10/18/18 14:43 Heparin Vial(*) SUBCUT 5,000 units Q8HR CONY Administration Heparin Sodium (Porcine) 1 ml 10/12/18 18:00 10/18/18 17:57 Heparin Flush Picc/Ml/Cvc(*) FLUSH 2 ml 0600,1800 CONY Administration Protocol Lorazepam 1 mg 10/11/18 18:17 10/18/18 09:48 Ativan Tab(*) PO 1 mg Q6H PRN Administration ANXIETY Magnesium Hydroxide 30 ml 10/11/18 14:18 10/18/18 17:21 Milk Of Magnesia Liq* PO 30 ml Q6H PRN Administration CONSTIPATION Methadone HCl 15 mg 10/15/18 15:00 10/18/18 14:44 Dolophine Tab* PO 15 mg 0700,1500,2300 CONY Administration Montelukast Sodium 10 mg 10/12/18 17:00 10/18/18 17:56 Singulair Tab* PO 10 mg 1700 CONY Administration Multi-Ingredient Ointment 1 applic 10/17/18 21:00 10/18/18 17:59 Hydrocerin* TOPICAL 1 applic BID CONY Administration Pantoprazole Sodium 40 mg 10/12/18 09:00 10/18/18 08:44 Protonix Tab* PO 40 mg DAILY CONY Administration Prochlorperazine 10 mg 10/11/18 18:03 10/15/18 17:09 Compazine Tab* PO 10 mg Q8HR PRN Administration NAUSEA Senna 2 tab 10/11/18 14:18 10/15/18 19:55 Senokot Tab* PO 2 tab BEDTIME PRN Administration CONSTIPATION Venlafaxine HCl 150 mg 10/12/18 09:00 10/18/18 08:44 Effexor Xr Cap* PO 150 mg DAILY CONY Administration Vital Signs: Vital Signs Temp Pulse Resp BP Pulse Ox 98.2 F 86 16 110/74 94 10/18/18 16:27 10/18/18 16:27 10/18/18 17:35 10/18/18 16:27 10/18/18 16:42 Lab Results: Laboratory Results - last 24 hr 10/18/18 10/18/18 06:35 06:35 WBC 7.2 RBC 3.05 L Hgb 9.0 L Hct 26 L MCV 85 MCH 30 MCHC 35 RDW 13 Plt Count 285 MPV 7.6 Neut % (Auto) 49.1 Lymph % (Auto) 32.0 [place] % (Auto) 13.6 Eos % (Auto) 4.1 Baso % (Auto) 1.2 Absolute Neuts (auto) 3.5 Absolute Lymphs (auto) 2.3 Absolute Monos (auto) 1.0 H Absolute Eos (auto) 0.3 Absolute Basos (auto) 0.1 Absolute Nucleated RBC 0 Nucleated RBC % 0.1 Sodium 138 Potassium 4.0 Chloride 103 Carbon Dioxide 28 Anion Gap 7 BUN 19 Creatinine 1.10 H Est GFR ( Amer) 64.7 Est GFR (Non-Af Amer) 53.5 BUN/Creatinine Ratio 17.3 Glucose 90 Calcium 9.3 Total Bilirubin 0.30 AST 31 ALT 14 Alkaline Phosphatase 115 H Total Protein 6.5 Albumin 3.6 Globulin 2.9 Albumin/Globulin Ratio 1.2 Exam: GEN: no acute distress. alert and appropriate. LUNGS: Clear to auscultation bilaterally. HEART: Regular rate and rhythm ABDOMEN: Soft, + bowel sounds, non-tender, non-distended EXTREMITIES: LLE examined. Suture lines clean. Lindsey removed from medial suture line. No drainage. No DF/PF NEUROLOGIC: Left leg is numb from smalls down and cannot move toes. RLE intact motor and sensation. Assessment/Plan: 1. Compartment Syndrome LLE, S/P fasciotomy: NWB LLE, PT/OT. 2. Analgesia: Methadone 15mg tid (0700,1500,2300). Consider addition of neuropathic pain med like gabapentin. 3. History of Polysubstance Abuse: Trying to avoid traditional opioids. Methadone for pain 4. Asthma: Singulair 5. DVT Prophylaxis: Heparin 6. Advanced Directives: Has MOLST. DNR 7. GERD: Protonix 8. Acute post-operative anemia: stable. 9. Estimated LOS: 10/26/18 to her home. 10/18/18 19:22
[2018-10-18] MEDS: Clotrimazole 1% VAGINAL CREAM* 45 GM VAGINAL SCH (20:01)
[2018-10-19] MEDS: Acetaminophen TAB* 325 MG PO PRN ×2 (01:18→23:51)
[2018-10-19] MEDS: Heparin VIAL(*) 5000 UNITS/ML VIAL (FIVE THOUSAND) SUBCUT SCH ×3 (06:07→21:54)
[2018-10-19] MEDS: Moisturizing CREAM* 120 GM JAR TOPICAL SCH ×2 (08:25→21:58)
[2018-10-19] MEDS: Docusate CAP* 100 MG PO SCH ×2 (08:25→22:01)
[2018-10-19] MEDS: Ferrous Sulfate TAB* 325 MG PO SCH (08:25)
[2018-10-19] MEDS: Pantoprazole TAB * 40 MG TAB PO SCH (08:26)
[2018-10-19] MEDS: Venlafaxine EXT RELEASE CAP* 75 MG PO SCH (08:26)
[2018-10-19] MEDS: Methadone TAB* 10 MG PO SCH ×3 (08:26→21:56)
[2018-10-19] MEDS: Montelukast Sodium TAB* 10 MG PO SCH (17:18)
--- NOTE | 2018-10-19 18:57 | PN ---
Progress Note Date of Service: 10/19/18 Note: EDD MUSTAFAONEIL was visited. Therapy notes read and reviewed. She has been able to do more. She thinks the Methadone 15 may not be enough. Will increase to 20 TID. I'll check an EKG in am. This will be as high as I am willing to write for. Current Medications: Active Medications Generic Name Dose Route Start Last Admin Trade Name Freq PRN Reason Stop Dose Admin Acetaminophen 650 mg 10/11/18 14:18 10/19/18 01:18 Tylenol Tab* PO 650 mg Q6H PRN Administration FEVER/PAIN Clotrimazole 1 applic 10/11/18 21:00 10/18/18 20:01 Gyne-Lotrimin 1% Vaginal Cream* VAGINAL 1 applic BEDTIME CONY Administration Docusate Sodium 100 mg 10/11/18 21:00 10/19/18 08:25 Colace Cap* PO 100 mg BID CONY Administration Ferrous Sulfate 325 mg 10/12/18 09:00 10/19/18 08:25 Ferrous Sulfate Tab* PO 325 mg DAILY CONY Administration Heparin Sodium (Porcine) 5,000 units 10/11/18 22:00 10/19/18 15:40 Heparin Vial(*) SUBCUT 5,000 units Q8HR CONY Administration Heparin Sodium (Porcine) 1 ml 10/12/18 18:00 10/19/18 18:32 Heparin Flush Picc/Ml/Cvc(*) FLUSH Not Given 0600,1800 [facility] Protocol Lorazepam 1 mg 10/11/18 18:17 10/18/18 19:17 Ativan Tab(*) PO 1 mg Q6H PRN Administration ANXIETY Magnesium Hydroxide 30 ml 10/11/18 14:18 10/18/18 17:21 Milk Of Magnesia Liq* PO 30 ml Q6H PRN Administration CONSTIPATION Methadone HCl 20 mg 10/19/18 23:00 Dolophine Tab* PO 0700,1500,2300 CONY Montelukast Sodium 10 mg 10/12/18 17:00 10/19/18 17:18 Singulair Tab* PO 10 mg 1700 CONY Administration Multi-Ingredient Ointment 1 applic 10/17/18 21:00 10/19/18 08:25 Hydrocerin* TOPICAL 1 applic BID CONY Administration Pantoprazole Sodium 40 mg 10/12/18 09:00 10/19/18 08:26 Protonix Tab* PO 40 mg DAILY CONY Administration Prochlorperazine 10 mg 10/11/18 18:03 10/15/18 17:09 Compazine Tab* PO 10 mg Q8HR PRN Administration NAUSEA Senna 2 tab 10/11/18 14:18 10/15/18 19:55 Senokot Tab* PO 2 tab BEDTIME PRN Administration CONSTIPATION Venlafaxine HCl 150 mg 10/12/18 09:00 10/19/18 08:26 Effexor Xr Cap* PO 150 mg DAILY CONY Administration Vital Signs: Vital Signs Temp Pulse Resp BP Pulse Ox 97.7 F 86 18 105/69 97 10/19/18 15:04 10/19/18 15:04 10/19/18 18:32 10/19/18 15:04 10/19/18 15:04 Exam: GEN: no acute distress. alert and appropriate. LUNGS: Clear to auscultation bilaterally. HEART: Regular rate and rhythm ABDOMEN: Soft, + bowel sounds, non-tender, non-distended EXTREMITIES: LLE examined. Suture lines clean. Medial line is healed No drainage. No DF/PF NEUROLOGIC: Left leg is numb from smalls down and cannot move toes. RLE intact motor and sensation. Assessment/Plan: 1. Compartment Syndrome LLE, S/P fasciotomy: NWB LLE, PT/OT. 2. Analgesia: Methadone 20 mg tid (0700,1500,2300). Consider addition of neuropathic pain med like gabapentin. 3. History of Polysubstance Abuse: Trying to avoid traditional opioids. Methadone for pain 4. Asthma: Singulair 5. DVT Prophylaxis: Heparin 6. Advanced Directives: Has MOLST. DNR 7. GERD: Protonix 8. Acute post-operative anemia: stable. 9. Estimated LOS: 10/26/18 to her home. 10/19/18 18:58
[2018-10-19] MEDS: Clotrimazole 1% VAGINAL CREAM* 45 GM VAGINAL SCH (20:13)
[2018-10-20 05:14] LABS: ABS Basophils 0.2 10^3/ul (0-0.2); ABS Eosinophils 0.4 10^3/ul (0-0.6); ABS Lymphocytes 2.5 10^3/ul (1.0-4.8); ABS Monocytes 0.9 10^3/ul (0-0.8); ABS Neutrophils 2.8 10^3/ul (1.5-7.7); ABS Nucleated RBC 0 10^3/ul; Eosinophil % 5.3 %; Hematocrit 27 % (35-47); Hemoglobin 9.4 g/dl (12.0-16.0); Lymphocyte % 36.6 %; Mean Corpuscular HGB Conc 35 g/dl (31-36); Mean Corpuscular Hemoglobin 30 pg (27-31); Mean Corpuscular Volume 86 fL (80-97); Mean Platelet Volume 7.3 fL (7.4-10.4); Nucleated Red Blood Cells % 0.1; Platelet Count 286 10^3/ul (150-450); Red Blood Count 3.17 10^6/ul (4.00-5.40); Red Cell Distribution Width 14 % (10.5-15); White Blood Count 6.7 10^3/ul (3.5-10.8)
[2018-10-20 05:30] LABS: Albumin 3.6 g/dL (3.2-5.2); Albumin/Globulin Ratio 1.2 (1-3); BUN/Creatinine Ratio 21.1 (8-20); Calcium 9.2 mg/dL (8.6-10.3); EGFR African American 65.4 (>60); Total Bilirubin 0.3 mg/dL (0.2-1.0); Total Protein 6.6 g/dL (6.4-8.9)
[2018-10-20 06:28] LABS: Potassium 4.3 mmol/L (3.5-5.0)
[2018-10-20] MEDS: Methadone TAB* 10 MG PO SCH ×3 (06:50→22:42)
[2018-10-20] MEDS: Heparin VIAL(*) 5000 UNITS/ML VIAL (FIVE THOUSAND) SUBCUT SCH ×3 (06:52→21:28)
[2018-10-20] MEDS: Docusate CAP* 100 MG PO SCH ×2 (08:17→21:26)
[2018-10-20] MEDS: Ferrous Sulfate TAB* 325 MG PO SCH (08:17)
[2018-10-20] MEDS: Venlafaxine EXT RELEASE CAP* 75 MG PO SCH (08:17)
[2018-10-20] MEDS: Pantoprazole TAB * 40 MG TAB PO SCH (08:17)
[2018-10-20] MEDS: Moisturizing CREAM* 120 GM JAR TOPICAL SCH ×2 (10:02→21:26)
[2018-10-20] MEDS: LORazepam TAB(*) 1 MG PO PRN ×2 (14:05→23:13)
[2018-10-20] MEDS: Montelukast Sodium TAB* 10 MG PO SCH (17:24)
--- NOTE | 2018-10-20 18:38 | PN ---
Progress Note Date of Service: 10/20/18 Note: EDD LOVING was visited. Therapy notes read and reviewed. She is now on Methadone 20 TID. She thinks this is adequate. I told her there would be no more increases Current Medications: Active Medications Generic Name Dose Route Start Last Admin Trade Name Freq PRN Reason Stop Dose Admin Acetaminophen 650 mg 10/11/18 14:18 10/19/18 23:51 Tylenol Tab* PO 650 mg Q6H PRN Administration FEVER/PAIN Clotrimazole 1 applic 10/11/18 21:00 10/19/18 20:13 Gyne-Lotrimin 1% Vaginal Cream* VAGINAL 1 applic BEDTIME CONY Administration Docusate Sodium 100 mg 10/11/18 21:00 10/20/18 08:17 Colace Cap* PO 100 mg BID CONY Administration Ferrous Sulfate 325 mg 10/12/18 09:00 10/20/18 08:17 Ferrous Sulfate Tab* PO 325 mg DAILY CONY Administration Heparin Sodium (Porcine) 5,000 units 10/11/18 22:00 10/20/18 14:06 Heparin Vial(*) SUBCUT 5,000 units Q8HR CONY Administration Heparin Sodium (Porcine) 1 ml 10/12/18 18:00 10/20/18 17:31 Heparin Flush Picc/Ml/Cvc(*) FLUSH Not Given 0600,1800 [facility] Protocol Lorazepam 1 mg 10/11/18 18:17 10/20/18 14:05 Ativan Tab(*) PO 1 mg Q6H PRN Administration ANXIETY Magnesium Hydroxide 30 ml 10/11/18 14:18 10/18/18 17:21 Milk Of Magnesia Liq* PO 30 ml Q6H PRN Administration CONSTIPATION Methadone HCl 20 mg 10/19/18 23:00 10/20/18 14:05 Dolophine Tab* PO 20 mg 0700,1500,2300 CONY Administration Montelukast Sodium 10 mg 10/12/18 17:00 10/20/18 17:24 Singulair Tab* PO 10 mg 1700 CONY Administration Multi-Ingredient Ointment 1 applic 10/17/18 21:00 10/20/18 10:02 Hydrocerin* TOPICAL 1 applic BID CONY Administration Pantoprazole Sodium 40 mg 10/12/18 09:00 10/20/18 08:17 Protonix Tab* PO 40 mg DAILY CONY Administration Prochlorperazine 10 mg 10/11/18 18:03 10/15/18 17:09 Compazine Tab* PO 10 mg Q8HR PRN Administration NAUSEA Senna 2 tab 10/11/18 14:18 10/15/18 19:55 Senokot Tab* PO 2 tab BEDTIME PRN Administration CONSTIPATION Venlafaxine HCl 150 mg 10/12/18 09:00 10/20/18 08:17 Effexor Xr Cap* PO 150 mg DAILY CONY Administration Vital Signs: Vital Signs Temp Pulse Resp BP Pulse Ox 98.1 F 81 18 110/78 98 10/20/18 15:32 10/20/18 15:32 10/20/18 16:20 10/20/18 15:32 10/20/18 15:32 Lab Results: Laboratory Results - last 24 hr 10/20/18 10/20/18 05:08 05:08 WBC 6.7 RBC 3.17 L Hgb 9.4 L Hct 27 L MCV 86 MCH 30 MCHC 35 RDW 14 Plt Count 286 MPV 7.3 L Neut % (Auto) 42.3 Lymph % (Auto) 36.6 [place] % (Auto) 13.4 Eos % (Auto) 5.3 Baso % (Auto) 2.4 Absolute Neuts (auto) 2.8 Absolute Lymphs (auto) 2.5 Absolute Monos (auto) 0.9 H Absolute Eos (auto) 0.4 Absolute Basos (auto) 0.2 Absolute Nucleated RBC 0 Nucleated RBC % 0.1 Sodium 135 Potassium 4.3 Chloride 102 Carbon Dioxide 26 Anion Gap 7 BUN 23 Creatinine 1.09 H Est GFR ( Amer) 65.4 Est GFR (Non-Af Amer) 54.0 BUN/Creatinine Ratio 21.1 H Glucose 90 Calcium 9.2 Total Bilirubin 0.30 AST 26 ALT 14 Alkaline Phosphatase 118 H Total Protein 6.6 Albumin 3.6 Globulin 3.0 Albumin/Globulin Ratio 1.2 Exam: GEN: no acute distress. alert and appropriate. LUNGS: Clear to auscultation bilaterally. HEART: Regular rate and rhythm ABDOMEN: Soft, + bowel sounds, non-tender, non-distended EXTREMITIES: LLE examined. Suture lines clean. Medial line is healed No drainage. No DF/PF NEUROLOGIC: Left leg is numb from smalls down and cannot move toes. RLE intact motor and sensation. Assessment/Plan: 1. Compartment Syndrome LLE, S/P fasciotomy: NWB LLE, PT/OT. 2. Analgesia: Methadone 20 mg tid (0700,1500,2300). Consider addition of neuropathic pain med like gabapentin if needs more. 3. History of Polysubstance Abuse: Trying to avoid traditional opioids. Methadone for pain 4. Asthma: Singulair 5. DVT Prophylaxis: Heparin 6. Advanced Directives: Has MOLST. DNR 7. GERD: Protonix 8. Acute post-operative anemia: stable. 9. Estimated LOS: 10/26/18 to her home. 10/20/18 18:38
[2018-10-20] MEDS: Clotrimazole 1% VAGINAL CREAM* 45 GM VAGINAL SCH (21:26)
[2018-10-21] MEDS: Heparin VIAL(*) 5000 UNITS/ML VIAL (FIVE THOUSAND) SUBCUT SCH ×3 (05:24→22:30)
[2018-10-21] MEDS: LORazepam TAB(*) 1 MG PO PRN ×3 (05:27→21:02)
[2018-10-21] MEDS: Methadone TAB* 10 MG PO SCH ×3 (06:37→22:45)
[2018-10-21] MEDS: Docusate CAP* 100 MG PO SCH ×2 (10:34→21:03)
[2018-10-21] MEDS: Venlafaxine EXT RELEASE CAP* 75 MG PO SCH (10:34)
[2018-10-21] MEDS: Ferrous Sulfate TAB* 325 MG PO SCH (10:34)
[2018-10-21] MEDS: Pantoprazole TAB * 40 MG TAB PO SCH (10:34)
[2018-10-21] MEDS: Moisturizing CREAM* 120 GM JAR TOPICAL SCH ×2 (10:42→21:02)
--- NOTE | 2018-10-21 17:51 | PN ---
Progress Note Date of Service: 10/21/18 Note: EDD LOVING was visited. Therapy notes read and reviewed. Methadone helpful for her pain. She seems stable at this time. Current Medications: Active Medications Generic Name Dose Route Start Last Admin Trade Name Freq PRN Reason Stop Dose Admin Acetaminophen 650 mg 10/11/18 14:18 10/19/18 23:51 Tylenol Tab* PO 650 mg Q6H PRN Administration FEVER/PAIN Clotrimazole 1 applic 10/11/18 21:00 10/20/18 21:26 Gyne-Lotrimin 1% Vaginal Cream* VAGINAL 1 applic BEDTIME CONY Administration Docusate Sodium 100 mg 10/11/18 21:00 10/21/18 10:34 Colace Cap* PO 100 mg BID CONY Administration Ferrous Sulfate 325 mg 10/12/18 09:00 10/21/18 10:34 Ferrous Sulfate Tab* PO 325 mg DAILY CONY Administration Heparin Sodium (Porcine) 5,000 units 10/11/18 22:00 10/21/18 15:01 Heparin Vial(*) SUBCUT 5,000 units Q8HR CONY Administration Heparin Sodium (Porcine) 1 ml 10/12/18 18:00 10/21/18 05:16 Heparin Flush Picc/Ml/Cvc(*) FLUSH Not Given 0600,1800 [facility] Protocol Lorazepam 1 mg 10/11/18 18:17 10/21/18 11:39 Ativan Tab(*) PO 1 mg Q6H PRN Administration ANXIETY Magnesium Hydroxide 30 ml 10/11/18 14:18 10/18/18 17:21 Milk Of Magnesia Liq* PO 30 ml Q6H PRN Administration CONSTIPATION Methadone HCl 20 mg 10/19/18 23:00 10/21/18 14:58 Dolophine Tab* PO 20 mg 0700,1500,2300 CONY Administration Montelukast Sodium 10 mg 10/12/18 17:00 10/20/18 17:24 Singulair Tab* PO 10 mg 1700 CONY Administration Multi-Ingredient Ointment 1 applic 10/17/18 21:00 10/21/18 10:42 Hydrocerin* TOPICAL 1 applic BID CONY Administration Pantoprazole Sodium 40 mg 10/12/18 09:00 10/21/18 10:34 Protonix Tab* PO 40 mg DAILY CONY Administration Prochlorperazine 10 mg 10/11/18 18:03 10/15/18 17:09 Compazine Tab* PO 10 mg Q8HR PRN Administration NAUSEA Senna 2 tab 10/11/18 14:18 10/15/18 19:55 Senokot Tab* PO 2 tab BEDTIME PRN Administration CONSTIPATION Venlafaxine HCl 150 mg 10/12/18 09:00 10/21/18 10:34 Effexor Xr Cap* PO 150 mg DAILY CONY Administration Vital Signs: Vital Signs Temp Pulse Resp BP Pulse Ox 97.5 F 76 16 107/73 97 10/21/18 05:26 10/21/18 05:26 10/21/18 14:58 10/21/18 05:26 10/21/18 08:00 Exam: GEN: no acute distress. alert and appropriate. LUNGS: Clear to auscultation bilaterally. HEART: Regular rate and rhythm ABDOMEN: Soft, + bowel sounds, non-tender, non-distended EXTREMITIES: LLE examined. Suture lines clean. Medial line is healed No drainage. No DF/PF NEUROLOGIC: Left leg is numb from smalls down and cannot move toes. RLE intact motor and sensation. Assessment/Plan: 1. Compartment Syndrome LLE, S/P fasciotomy: NWB LLE, PT/OT. 2. Analgesia: Methadone 20 mg tid (0700,1500,2300). Consider addition of neuropathic pain med like gabapentin if needs more. 3. History of Polysubstance Abuse: Trying to avoid traditional opioids. Methadone for pain 4. Asthma: Singulair 5. DVT Prophylaxis: Heparin 6. Advanced Directives: Has MOLST. DNR 7. GERD: Protonix 8. Acute post-operative anemia: stable. 9. Estimated LOS: 10/26/18 to her home. 10/21/18 17:52
[2018-10-21] MEDS: Montelukast Sodium TAB* 10 MG PO SCH (18:03)
[2018-10-21] MEDS: Clotrimazole 1% VAGINAL CREAM* 45 GM VAGINAL SCH (21:02)
[2018-10-22] MEDS: LORazepam TAB(*) 1 MG PO PRN ×3 (05:36→21:07)
[2018-10-22] MEDS: Heparin VIAL(*) 5000 UNITS/ML VIAL (FIVE THOUSAND) SUBCUT SCH ×3 (05:36→21:19)
[2018-10-22] MEDS: Methadone TAB* 10 MG PO SCH ×3 (06:48→22:46)
[2018-10-22] MEDS: Moisturizing CREAM* 120 GM JAR TOPICAL SCH ×2 (09:52→21:04)
[2018-10-22] MEDS: Ferrous Sulfate TAB* 325 MG PO SCH (09:52)
[2018-10-22] MEDS: Pantoprazole TAB * 40 MG TAB PO SCH (09:52)
[2018-10-22] MEDS: Venlafaxine EXT RELEASE CAP* 75 MG PO SCH (09:52)
[2018-10-22] MEDS: Docusate CAP* 100 MG PO SCH ×2 (09:52→21:04)
--- NOTE | 2018-10-22 14:06 | PN ---
Progress Note Date of Service: 10/22/18 Note: EDD LOVING was visited. Nursing notes read and reviewed. She scratched the bottom of her left foot. Will watch for healing Current Medications: Active Medications Generic Name Dose Route Start Last Admin Trade Name Freq PRN Reason Stop Dose Admin Acetaminophen 650 mg 10/11/18 14:18 10/19/18 23:51 Tylenol Tab* PO 650 mg Q6H PRN Administration FEVER/PAIN Clotrimazole 1 applic 10/11/18 21:00 10/21/18 21:02 Gyne-Lotrimin 1% Vaginal Cream* VAGINAL 1 applic BEDTIME CONY Administration Docusate Sodium 100 mg 10/11/18 21:00 10/22/18 09:52 Colace Cap* PO 100 mg BID CONY Administration Ferrous Sulfate 325 mg 10/12/18 09:00 10/22/18 09:52 Ferrous Sulfate Tab* PO 325 mg DAILY CONY Administration Heparin Sodium (Porcine) 5,000 units 10/11/18 22:00 10/22/18 05:36 Heparin Vial(*) SUBCUT 5,000 units Q8HR CONY Administration Heparin Sodium (Porcine) 1 ml 10/12/18 18:00 10/22/18 05:24 Heparin Flush Picc/Ml/Cvc(*) FLUSH Not Given 0600,1800 [facility] Protocol Lorazepam 1 mg 10/11/18 18:17 10/22/18 13:46 Ativan Tab(*) PO 1 mg Q6H PRN Administration ANXIETY Magnesium Hydroxide 30 ml 10/11/18 14:18 10/18/18 17:21 Milk Of Magnesia Liq* PO 30 ml Q6H PRN Administration CONSTIPATION Methadone HCl 20 mg 10/19/18 23:00 10/22/18 06:48 Dolophine Tab* PO 20 mg 0700,1500,2300 CONY Administration Montelukast Sodium 10 mg 10/12/18 17:00 10/21/18 18:03 Singulair Tab* PO 10 mg 1700 CONY Administration Multi-Ingredient Ointment 1 applic 10/17/18 21:00 10/22/18 09:52 Hydrocerin* TOPICAL 1 applic BID CONY Administration Pantoprazole Sodium 40 mg 10/12/18 09:00 10/22/18 09:52 Protonix Tab* PO 40 mg DAILY CONY Administration Prochlorperazine 10 mg 10/11/18 18:03 10/15/18 17:09 Compazine Tab* PO 10 mg Q8HR PRN Administration NAUSEA Senna 2 tab 10/11/18 14:18 10/15/18 19:55 Senokot Tab* PO 2 tab BEDTIME PRN Administration CONSTIPATION Venlafaxine HCl 150 mg 10/12/18 09:00 10/22/18 09:52 Effexor Xr Cap* PO 150 mg DAILY CONY Administration Vital Signs: Vital Signs Temp Pulse Resp BP Pulse Ox 98.3 F 77 16 118/75 98 10/22/18 05:32 10/22/18 05:32 10/22/18 13:46 10/22/18 05:32 10/22/18 08:00 Exam: GEN: no acute distress. alert and appropriate. LUNGS: Clear to auscultation bilaterally. HEART: Regular rate and rhythm ABDOMEN: Soft, + bowel sounds, non-tender, non-distended EXTREMITIES: LLE examined. Suture lines clean. Medial line is healed No drainage. No DF/PF NEUROLOGIC: Left leg is numb from smalls down and cannot move toes. RLE intact motor and sensation. Assessment/Plan: 1. Compartment Syndrome LLE, S/P fasciotomy: NWB LLE, PT/OT. 2. Analgesia: Methadone 20 mg tid (0700,1500,2300). Consider addition of neuropathic pain med like gabapentin if needs more. 3. History of Polysubstance Abuse: Trying to avoid traditional opioids. Methadone for pain 4. Asthma: Singulair 5. DVT Prophylaxis: Heparin 6. Advanced Directives: Has MOLST. DNR 7. GERD: Protonix 8. Acute post-operative anemia: stable. 9. Estimated LOS: 10/26/18 to her home. 10/22/18 14:06
[2018-10-22] MEDS: Montelukast Sodium TAB* 10 MG PO SCH (18:08)
[2018-10-22] MEDS: Clotrimazole 1% VAGINAL CREAM* 45 GM VAGINAL SCH (21:04)
[2018-10-23] MEDS: Heparin VIAL(*) 5000 UNITS/ML VIAL (FIVE THOUSAND) SUBCUT SCH ×3 (05:49→21:41)
[2018-10-23] MEDS: Methadone TAB* 10 MG PO SCH ×3 (06:27→22:45)
[2018-10-23] MEDS: Docusate CAP* 100 MG PO SCH ×2 (08:59→21:38)
[2018-10-23] MEDS: Moisturizing CREAM* 120 GM JAR TOPICAL SCH ×2 (08:59→21:41)
[2018-10-23] MEDS: Acetaminophen TAB* 325 MG PO PRN (09:00)
[2018-10-23] MEDS: Pantoprazole TAB * 40 MG TAB PO SCH (09:00)
[2018-10-23] MEDS: Venlafaxine EXT RELEASE CAP* 75 MG PO SCH (09:00)
[2018-10-23] MEDS: Ferrous Sulfate TAB* 325 MG PO SCH (09:00)
--- NOTE | 2018-10-23 15:03 | PN ---
Progress Note - Progress Note Date of Service: 10/23/18 SOAP: Subjective: []Pt seen at bedside for suture and staple removal. She feels well without complaints. Last I&D with closure of lateral incision 10/09. Objective: []General: Appears well, NAD LLE: Lateral incision is CDI. Rector and sutures removed, steri strips placed. Incision is with well approximated wound edges, no discharge, no erythema. Foot and distal leg remain insensate without motor function. Foot is warm and supple with 2+ DP pulse Assessment: []s/p fasciotomy and serial I&D LLE Plan: []NWB LLE Podus boot to prevent contracture Keep Incisions CDI for now. When patient goes home okay to shower allowing soap and water to run over steri strips, do not remove steri strips rather allow them to fall off when ready, do not submerge incisions
[2018-10-23] MEDS: Montelukast Sodium TAB* 10 MG PO SCH (17:30)
--- NOTE | 2018-10-23 17:57 | PN ---
Progress Note Date of Service: 10/23/18 Note: EDD MUSTAFAONEIL was visited. Therapy notes read and reviewed. Sutures removed by Alva Guerrero. The patient has a bit of a cough and would like robitussin Current Medications: Active Medications Generic Name Dose Route Start Last Admin Trade Name Freq PRN Reason Stop Dose Admin Acetaminophen 650 mg 10/11/18 14:18 10/23/18 09:00 Tylenol Tab* PO 650 mg Q6H PRN Administration FEVER/PAIN Clotrimazole 1 applic 10/11/18 21:00 10/22/18 21:04 Gyne-Lotrimin 1% Vaginal Cream* VAGINAL 1 applic BEDTIME CONY Administration Docusate Sodium 100 mg 10/11/18 21:00 10/23/18 08:59 Colace Cap* PO 100 mg BID CONY Administration Ferrous Sulfate 325 mg 10/12/18 09:00 10/23/18 09:00 Ferrous Sulfate Tab* PO 325 mg DAILY CONY Administration Guaifenesin 5 ml 10/23/18 17:55 Robitussin* PO Q4H PRN COUGH Heparin Sodium (Porcine) 5,000 units 10/11/18 22:00 10/23/18 14:25 Heparin Vial(*) SUBCUT 5,000 units Q8HR CONY Administration Lorazepam 0.5 mg 10/23/18 16:03 Ativan Tab(*) PO Q6H PRN ANXIETY Magnesium Hydroxide 30 ml 10/11/18 14:18 10/18/18 17:21 Milk Of Magnesia Liq* PO 30 ml Q6H PRN Administration CONSTIPATION Methadone HCl 20 mg 10/19/18 23:00 10/23/18 14:24 Dolophine Tab* PO 20 mg 0700,1500,2300 CONY Administration Montelukast Sodium 10 mg 10/12/18 17:00 10/23/18 17:30 Singulair Tab* PO 10 mg 1700 CONY Administration Multi-Ingredient Ointment 1 applic 10/17/18 21:00 10/23/18 08:59 Hydrocerin* TOPICAL 1 applic BID CONY Administration Pantoprazole Sodium 40 mg 10/12/18 09:00 10/23/18 09:00 Protonix Tab* PO 40 mg DAILY CONY Administration Prochlorperazine 10 mg 10/11/18 18:03 10/15/18 17:09 Compazine Tab* PO 10 mg Q8HR PRN Administration NAUSEA Senna 2 tab 10/11/18 14:18 10/15/18 19:55 Senokot Tab* PO 2 tab BEDTIME PRN Administration CONSTIPATION Venlafaxine HCl 150 mg 10/12/18 09:00 10/23/18 09:00 Effexor Xr Cap* PO 150 mg DAILY CONY Administration Vital Signs: Vital Signs Temp Pulse Resp BP Pulse Ox 98.3 F 87 16 103/68 97 10/23/18 16:08 10/23/18 16:08 10/23/18 16:30 10/23/18 16:08 10/23/18 16:08 Exam: GEN: no acute distress. alert and appropriate. LUNGS: Clear to auscultation bilaterally. HEART: Regular rate and rhythm ABDOMEN: Soft, + bowel sounds, non-tender, non-distended EXTREMITIES: LLE examined. Suture lines clean. Medial line is healed No drainage. No DF/PF NEUROLOGIC: Left leg is numb from smalls down and cannot move toes. RLE intact motor and sensation. Assessment/Plan: 1. Compartment Syndrome LLE, S/P fasciotomy: NWB LLE, PT/OT. 2. Analgesia: Methadone 20 mg tid (0700,1500,2300). Consider addition of neuropathic pain med like gabapentin if needs more. 3. History of Polysubstance Abuse: Trying to avoid traditional opioids. Methadone for pain 4. Asthma: Singulair 5. DVT Prophylaxis: Heparin 6. Advanced Directives: Has MOLST. DNR 7. GERD: Protonix 8. Acute post-operative anemia: stable. 9. Estimated LOS: 10/26/18 to her home. 10/23/18 17:58
[2018-10-23] MEDS: guaiFENesin LIQ* 100 MG/5 ML UDC PO PRN ×2 (19:11→23:40)
[2018-10-23] MEDS: LORazepam TAB(*) 0.5 MG PO PRN (19:50)
[2018-10-23] MEDS: Clotrimazole 1% VAGINAL CREAM* 45 GM VAGINAL SCH (21:38)
[2018-10-24] MEDS: LORazepam TAB(*) 0.5 MG PO PRN ×3 (01:51→21:01)
[2018-10-24] MEDS: guaiFENesin LIQ* 100 MG/5 ML UDC PO PRN ×4 (06:40→23:04)
[2018-10-24] MEDS: Methadone TAB* 10 MG PO SCH ×3 (06:40→23:03)
[2018-10-24] MEDS: Heparin VIAL(*) 5000 UNITS/ML VIAL (FIVE THOUSAND) SUBCUT SCH ×3 (06:40→21:01)
[2018-10-24] MEDS: Pantoprazole TAB * 40 MG TAB PO SCH (09:39)
[2018-10-24] MEDS: Docusate CAP* 100 MG PO SCH ×2 (09:39→21:01)
[2018-10-24] MEDS: Venlafaxine EXT RELEASE CAP* 75 MG PO SCH (09:39)
[2018-10-24] MEDS: Moisturizing CREAM* 120 GM JAR TOPICAL SCH ×2 (09:39→21:08)
[2018-10-24] MEDS: Ferrous Sulfate TAB* 325 MG PO SCH (09:39)
--- NOTE | 2018-10-24 12:44 | PMRUTEAM ---
PMRU: Team Meeting Current Status: Nursing: Current Status Skin Deviations [L dorsal pads Other and heel] Skin Deviations [L lateral Other ankle] Skin Deviations [Right Upper Previous Access Point Arm] Skin Deviations [Left Lower Incision Leg] Skin Deviations [Bilateral Other Foot] Skin Deviations [Bilateral Rash Lower Back] Skin Deviations [Bilateral Other Medial Thigh] Skin Deviation Description [L small scattered scabbed areas dorsal pads and heel] Skin Deviation Description [L small open area healing-optifoam applied lateral ankle] Skin Deviation Description [ Superficial skin tear from PICC dressing Right Upper Arm] Skin Deviation Description [ lateral and medial incisions with steri strips. no Left Lower Leg] drainage noted. telfa and clemencia wrap applied after washing wiht soap and water Skin Deviation Description [ dry. eucerin cream applied Bilateral Foot] Skin Deviation Description [ resolving Bilateral Lower Back] Skin Deviation Description [ dry skin Bilateral Medial Thigh] Bladder Current Status voiding in br but occasionally will use bsc Bowel Current Status colace given Nutrition Current Status appetite good Medication Current Status methadone and tylenol for pain Physical Therapy: Current Status Bed Mobility Assistance Supervision Transfer Mobility Assistance Supervision Transfer/Bed Mobility Rolling Walker Recommended Devices Transfer Mobility Comment Pt. is able to transfer using a 2 w/w S x 1. Ambulation Assistance Supervision Ambulation Assistive Devices Rolling Walker Number of Feet Patient 50 Ambulated Ambulation Comment Pt. presents a confident and safe reciprocal type gait. Stairs Assistance Supervision Stairs Recommended Devices One Rail Number of Stairs 2x4 Curb 2 or More Person Assist Manual Wheelchair Control/ Bilateral UE's Technique Wheelchair Propulsion Ability Standby Assistance Wheelchair Distance (ft) 100' x 2 Objective Comments patient demosntrates good ability in ascent and descent of stairs. has increased difficulty in descent due to RLE weakness at knee. Occupational Therapy: Current Status Upper Body Dressing Independent Lower Body Dressing Supervision Lower Body Dressing Progress setup Bathing Supervision Bathing Progress setup Toileting Ind with Adaptive Equip Toilet Transfer Ind with Adaptive Equip Shower Transfer Supervision Eating Independent Instrumental ADL Pt able to stand with distant supervision to place clothes and detergent in washer to wash clothes. No LOB, able to tolerate standing well in CAM boot for approx 6 minutes to complete. Rec Therapy: Current Status Summary of Assessment and RT assessment complete and pt. has been active in Clinical Impression daily leisure sessions. Pt. interested in [employer] games, outdoor time, and has been provided with a variety of activities for independent involvement. Pt. is in good spirits during visits although presents as tired after therapy and after medications. Pt. states she would like assistance with developing a coping plan for after d/c, will assist with this. Treatment Goals Pt. will continue to engage in leisure activities while on the unit. Treatment Plan Provide RT services and encourage involvement. Provide support as needed. Social Work: Current Status Discharge Plan return home with home care svs and family support Potential for Family Training pt's parents are involved and supportive Anticipated Discharge Home Destination Discharge With VNS and family support Nutrition: Current Status Monitoring po intake generally good, although reduced a bit yesterday (from 75-100% down to 40-50%), possibly d/t sore throat and cough; Robitusson ordered. Regular diet remains appropriate. Weekly labs stable; unremarkable. Bowel pattern regulated. Wound continues to heal; sutures/linsdey to LLE removed yesterday. Pt appears to be meeting goals as outlined below. Goals: Physical Therapy: Initial Goals Bed Mobility Assistance Independent Transfer Mobility Assistance Independent Transfer/Bed Mobility Rolling Walker Recommended Devices Ambulation Independent Ambulation Recommended Devices Rolling Walker Ambulation Distance 150 Wheelchair Propulsion Ability Independent Wheelchair Distance (ft) 150 Stairs Assistance Supervision Stair Recommended Devices One Rail Number of Stairs 5 Home Exercise Program Independent Assistance Physical Therapy: Updated Goals Bed Mobility Assistance Independent Transfer Mobility Assistance Independent Transfer/Bed Mobility Rolling Walker Recommended Devices Ambulation Assistance Independent Ambulation Assistive Devices Rolling Walker Ambulation Distance (ft) 50' Wheelchair Propulsion Ability Independent Wheelchair Distance (ft) 100' Stairs Assistance Independent Stairs Recommended Devices One Rail Number of Stairs 5 Home Exercise Program Independent Assistance Occupational Therapy: Initial Goals Goals to be Completed in (Days 10-14 ) Upper Body Bathing Routine Modified Independent with Lower Body Bathing Routine Modified Independent with Upper Body Dressing Routine Independent Lower Body Dressing Routine Modified Independent with Toilet Hygeine and Clothing Modified Independent with Management Routine Toilet Transfer Routine Modified Independent with Tub Transfer Routine Modified Independent with Functional Transfers for ADL Modified Independent with Grooming Routine Independent Feeding Routine Independent Light Housekeeping Tasks Minimal Contact Assist Light Housekeeping Tasks light meal prep Gaby with DME Assistive Devices Nursing: Goals Bladder Goal independent Bowel Goal independent Nutrition Goal 100% of all meals Medication Goal independent Nutrition: Goals Intervention Goals 1. Achieve/maintain adequate oral intake to support maintenance of lean body mass, wound incision healing. 2. Achieve/maintain regular bowel pattern w/o constipation/diarrhea. Social Work: Goals Discharge Plan return home with home care svs and family support Potential for Family Training pt's parents are involved and supportive Anticipated Discharge Home Destination Discharge With VNS and family support Care Plan: Care Plan ADL's - Improve/Maintain Start: 10/12/18 15:52 Freq: DAILY Status: Active Target: Protocol: Activity Type Activity Date Activity User E-Sign Co-Sign Detail Recorded Client Recorded Date Recorded By Document 10/24/18 10:59 [id number] 10/24/18 10:59 [id number] 10/24/18 10:59 PMRU Outcome: ADL's/ADL Transfers Orders/Interventions Occupational Therapy Evaluation & Treatment Communication Tool in Patient Room Device Yes Address Deficits Secondary To: LLE sx Patient to receive OT 5x/wk for 60-120 Therex min/day Self Care Management Group Therapy UE/LE ADL's with Assist Yes: Gaby ADL Transfers with Assist Yes: Gaby Toileting: Transfers,Clothing Management Yes: Gaby ,Hygeine w/Assist Light Kitchen/Laundry w/Assist Yes: modA Progression Toward Outcome/Goals Progressing Outcome/Goals Met Pt participated well, no physical assistance needed during session to complete ADLs, transfers, or mobility. Coping/Psych-Improve/Maintain Start: 10/11/18 15:27 Freq: QSHIFT Status: Active Target: Protocol: Activity Type Activity Date Activity User E-Sign Co-Sign Detail Recorded Client Recorded Date Recorded By Document 10/23/18 23:43 [id number] 10/23/18 23:44 [id number] 10/23/18 23:43 PMRU Outcome: Coping/Psychosocial Coping Outcome/Goals Verbalization of Acceptance of Rehab Admit Verbalization of Sense of Control Over Health Status Utilization of Appropriate Problem Solving Techniques Willingness to Participate in Treatment Plan and Basic Needs Utilization of Available Support Systems Absence of Destructive Behavior to Self/Others Psychosocial Outcome/Goals Maintain/ Improve Emotional Health Demonstrates Knowledge of Healthy Coping Mechanisms Available Cooperate/ Participate in Plan Progression Toward Outcome/Goals - Progressing Coping Progression Toward Outcome/Goals - Progressing Psychosocial DVT Prophylaxis- Improve/Maintain Start: 10/11/18 15:27 Freq: QSHIFT Status: Active Target: Protocol: Activity Type Activity Date Activity User E-Sign Co-Sign Detail Recorded Client Recorded Date Recorded By Document 10/23/18 23:43 [id number] 10/23/18 23:44 [id number] 10/23/18 23:43 PMRU Outcome: DVT Prophylaxis Outcome/Goals Remains Free of DVT Complies with DVT Prophylaxis /Treatment Demonstrates Knowledge of DVT Prevention/ Treatment TEDS Stockings on Every AM, Off at HS Progression Toward Outcome/Goals Progressing Discharge Planning - Improve/Maintain Start: 10/11/18 15:27 Freq: DAILY Status: Active Target: Protocol: Activity Type Activity Date Activity User E-Sign Co-Sign Detail Recorded Client Recorded Date Recorded By Document 10/23/18 23:43 [id number] 10/23/18 23:43 [id number] 10/23/18 23:43 PMRU Outcome: Discharge Planning Update Patient Family No Outcome/Goals Demonstrates Understanding of Discharge Plan Progression Toward Outcome/Goals Progressing Education-Improve/Maintain Start: 10/11/18 15:27 Freq: QSHIFT Status: Active Target: Protocol: Activity Type Activity Date Activity User E-Sign Co-Sign Detail Recorded Client Recorded Date Recorded By Document 10/23/18 23:43 [id number] 10/23/18 23:44 [id number] 10/23/18 23:43 PMRU Outcome: Education Outcome/Goals Encourage Questions Progression Toward Outcome/Goals Progressing Medication Administration Start: 10/11/18 15:27 Freq: QSHIFT Status: Active Target: Protocol: Activity Type Activity Date Activity User E-Sign Co-Sign Detail Recorded Client Recorded Date Recorded By Document 10/23/18 23:43 [id number] 10/23/18 23:44 [id number] 10/23/18 23:43 PMRU Outcome: Medication Administration Assess Patient Knowledge/Teach Med Yes Education for all Meds Outcome/Goals Patient Independent with Medication Administration at Home Progression Towards Outcome/Goals Progressing Is Patient Going Home on Lovenox? No Mobility- Improve/Maintain Start: 10/13/18 08:35 Freq: DAILY Status: Active Target: Protocol: Activity Type Activity Date Activity User E-Sign Co-Sign Detail Recorded Client Recorded Date Recorded By Document 10/13/18 08:35 [id number] 10/13/18 08:37 [id number] 10/13/18 08:35 PMRU Outcome: Mobility Physical Therapy Evaluation and Yes Treatment Activity OOB with Assistance Yes NWB Yes: LLE Device Yes: FWW Assistance Yes: CGA-Min A Patient to be seen 5x/wk for 60-120 min/ Therex day for: Mobility Training Gait Training W/C Mobility Balance Outcome/Goals Maintain/ Achieve Baseline Mobility Status Improve Mobility Status Demonstrates Proper Use of Assistive Devices Free from Complications of Immobility Bed Mobility Yes: Ind Transfers Yes: Mod I Gait x ft Yes: Mod I x150ft W/C Mobility x ft Yes: Mod I Up/Down Stairs Yes: Supervision x5, axillary crutches Pain/Comfort- Improve/Maintain Start: 10/11/18 15:27 Freq: QSHIFT Status: Active Target: Protocol: Activity Type Activity Date Activity User E-Sign Co-Sign Detail Recorded Client Recorded Date Recorded By Document 10/23/18 23:43 [id number] 10/23/18 23:44 [id number] 10/23/18 23:43 PMRU Outcome: Pain/Comfort Outcome/Goals Demonstrates Knowledge and Use of Available Comfort Measures Achieves Acceptable Comfort/Pain Level as Determined by Patient/Condit Maintain Comfort Level Allowing Patient to Fully Participate in Rehab Progression Toward Outcome/Goals Progressing Outcome/Goals Met Comment reposition pt Medicine Note: Length of Stay: 2 days Anticipated Discharge Destination: Home Tentative Discharge Date: 10/26/18 Discharged to: home
[2018-10-24] MEDS: Montelukast Sodium TAB* 10 MG PO SCH (16:47)
--- NOTE | 2018-10-24 18:27 | PN ---
Progress Note Date of Service: 10/24/18 Note: EDD LOVING was visited. Therapy notes read and reviewed. She was discussed in interdisicplinary team rounds. She is doing well and preparing for discharge. Current Medications: Active Medications Generic Name Dose Route Start Last Admin Trade Name Freq PRN Reason Stop Dose Admin Acetaminophen 650 mg 10/11/18 14:18 10/23/18 09:00 Tylenol Tab* PO 650 mg Q6H PRN Administration FEVER/PAIN Clotrimazole 1 applic 10/11/18 21:00 10/23/18 21:38 Gyne-Lotrimin 1% Vaginal Cream* VAGINAL 1 applic BEDTIME CONY Administration Docusate Sodium 100 mg 10/11/18 21:00 10/24/18 09:39 Colace Cap* PO 100 mg BID CONY Administration Ferrous Sulfate 325 mg 10/12/18 09:00 10/24/18 09:39 Ferrous Sulfate Tab* PO 325 mg DAILY CONY Administration Guaifenesin 5 ml 10/23/18 17:55 10/24/18 16:47 Robitussin* PO 5 ml Q4H PRN Administration COUGH Heparin Sodium (Porcine) 5,000 units 10/11/18 22:00 10/24/18 14:38 Heparin Vial(*) SUBCUT 5,000 units Q8HR CONY Administration Lorazepam 0.5 mg 10/23/18 16:03 10/24/18 10:27 Ativan Tab(*) PO 0.5 mg Q6H PRN Administration ANXIETY Magnesium Hydroxide 30 ml 10/11/18 14:18 10/18/18 17:21 Milk Of Magnesia Liq* PO 30 ml Q6H PRN Administration CONSTIPATION Methadone HCl 20 mg 10/19/18 23:00 10/24/18 14:41 Dolophine Tab* PO 20 mg 0700,1500,2300 CONY Administration Montelukast Sodium 10 mg 10/12/18 17:00 10/24/18 16:47 Singulair Tab* PO 10 mg 1700 CONY Administration Multi-Ingredient Ointment 1 applic 10/17/18 21:00 10/24/18 09:39 Hydrocerin* TOPICAL 1 applic BID CONY Administration Pantoprazole Sodium 40 mg 10/12/18 09:00 10/24/18 09:39 Protonix Tab* PO 40 mg DAILY CONY Administration Prochlorperazine 10 mg 10/11/18 18:03 10/15/18 17:09 Compazine Tab* PO 10 mg Q8HR PRN Administration NAUSEA Senna 2 tab 10/11/18 14:18 10/15/18 19:55 Senokot Tab* PO 2 tab BEDTIME PRN Administration CONSTIPATION Venlafaxine HCl 150 mg 10/12/18 09:00 10/24/18 09:39 Effexor Xr Cap* PO 150 mg DAILY CONY Administration Vital Signs: Vital Signs Temp Pulse Resp BP Pulse Ox 97.8 F 94 18 100/73 97 10/24/18 15:54 10/24/18 15:54 10/24/18 15:54 10/24/18 15:54 10/24/18 15:54 Exam: GEN: no acute distress. alert and appropriate. LUNGS: Clear to auscultation bilaterally. HEART: Regular rate and rhythm ABDOMEN: Soft, + bowel sounds, non-tender, non-distended EXTREMITIES: LLE examined. Suture lines clean. Medial line is healed No drainage. No DF/PF NEUROLOGIC: Left leg is numb from smalls down and cannot move toes. RLE intact motor and sensation. Assessment/Plan: 1. Compartment Syndrome LLE, S/P fasciotomy: NWB LLE, PT/OT. 2. Analgesia: Methadone 20 mg tid (0700,1500,2300). Consider addition of neuropathic pain med like gabapentin if needs more. 3. History of Polysubstance Abuse: Trying to avoid traditional opioids. Methadone for pain 4. Asthma: Singulair 5. DVT Prophylaxis: Heparin 6. Advanced Directives: Has MOLST. DNR 7. GERD: Protonix 8. Acute post-operative anemia: stable. 9. Estimated LOS: 10/26/18 to her home. 10/24/18 18:27
[2018-10-24] MEDS: Prochlorperazine TAB* 10 MG PO PRN (19:28)
[2018-10-24] MEDS: Clotrimazole 1% VAGINAL CREAM* 45 GM VAGINAL SCH (21:02)
[2018-10-25] MEDS: guaiFENesin LIQ* 100 MG/5 ML UDC PO PRN ×4 (03:08→20:48)
[2018-10-25] MEDS: Acetaminophen TAB* 325 MG PO PRN ×3 (03:24→18:55)
[2018-10-25] MEDS: Methadone TAB* 10 MG PO SCH ×3 (06:49→22:46)
[2018-10-25] MEDS: Heparin VIAL(*) 5000 UNITS/ML VIAL (FIVE THOUSAND) SUBCUT SCH ×3 (06:50→21:53)
[2018-10-25] MEDS: Docusate CAP* 100 MG PO SCH ×2 (08:48→20:48)
[2018-10-25] MEDS: Ferrous Sulfate TAB* 325 MG PO SCH (08:58)
[2018-10-25] MEDS: Venlafaxine EXT RELEASE CAP* 75 MG PO SCH (08:58)
[2018-10-25] MEDS: Pantoprazole TAB * 40 MG TAB PO SCH (08:58)
[2018-10-25] MEDS: Moisturizing CREAM* 120 GM JAR TOPICAL SCH ×2 (08:59→20:52)
[2018-10-25] MEDS: Saline NASAL SPRAY 0.65%* BTL BOTH NARES PRN ×2 (12:06→20:49)
[2018-10-25] MEDS: Montelukast Sodium TAB* 10 MG PO SCH (16:58)
--- NOTE | 2018-10-25 18:11 | PN ---
Progress Note Date of Service: 10/25/18 Note: EDD LOVING was visited. Therapy notes read and reviewed. Ready for discharge in am. She will get one week's worth of Methadone and some Ativan. Current Medications: Active Medications Generic Name Dose Route Start Last Admin Trade Name Freq PRN Reason Stop Dose Admin Acetaminophen 650 mg 10/11/18 14:18 10/25/18 12:14 Tylenol Tab* PO 650 mg Q6H PRN Administration FEVER/PAIN Clotrimazole 1 applic 10/11/18 21:00 10/24/18 21:02 Gyne-Lotrimin 1% Vaginal Cream* VAGINAL Not Given BEDTIME CONY Docusate Sodium 100 mg 10/11/18 21:00 10/25/18 08:48 Colace Cap* PO 100 mg BID CONY Administration Ferrous Sulfate 325 mg 10/12/18 09:00 10/25/18 08:58 Ferrous Sulfate Tab* PO 325 mg DAILY CONY Administration Guaifenesin 5 ml 10/23/18 17:55 10/25/18 15:45 Robitussin* PO 5 ml Q4H PRN Administration COUGH Heparin Sodium (Porcine) 5,000 units 10/11/18 22:00 10/25/18 14:24 Heparin Vial(*) SUBCUT 5,000 units Q8HR CONY Administration Lorazepam 0.5 mg 10/23/18 16:03 10/24/18 21:01 Ativan Tab(*) PO 0.5 mg Q6H PRN Administration ANXIETY Magnesium Hydroxide 30 ml 10/11/18 14:18 10/18/18 17:21 Milk Of Magnesia Liq* PO 30 ml Q6H PRN Administration CONSTIPATION Methadone HCl 20 mg 10/19/18 23:00 10/25/18 15:43 Dolophine Tab* PO 20 mg 0700,1500,2300 CONY Administration Montelukast Sodium 10 mg 10/12/18 17:00 10/25/18 16:58 Singulair Tab* PO 10 mg 1700 CONY Administration Multi-Ingredient Ointment 1 applic 10/17/18 21:00 10/25/18 08:59 Hydrocerin* TOPICAL 1 applic BID CONY Administration Pantoprazole Sodium 40 mg 10/12/18 09:00 10/25/18 08:58 Protonix Tab* PO 40 mg DAILY CONY Administration Prochlorperazine 10 mg 10/11/18 18:03 10/24/18 19:28 Compazine Tab* PO 10 mg Q8HR PRN Administration NAUSEA Senna 2 tab 10/11/18 14:18 10/15/18 19:55 Senokot Tab* PO 2 tab BEDTIME PRN Administration CONSTIPATION Sodium Chloride 1 spray 10/25/18 11:39 10/25/18 12:06 Sodium Chloride 0.65% Nasal [place]* BOTH NARES 1 spray Q4H PRN Administration CONGESTION Venlafaxine HCl 150 mg 10/12/18 09:00 10/25/18 08:58 Effexor Xr Cap* PO 150 mg DAILY CONY Administration Vital Signs: Vital Signs Temp Pulse Resp BP Pulse Ox 98.4 F 83 18 103/65 98 10/25/18 15:50 10/25/18 15:50 10/25/18 15:50 10/25/18 15:50 10/25/18 15:50 Exam: GEN: no acute distress. alert and appropriate. LUNGS: Clear to auscultation bilaterally. HEART: Regular rate and rhythm ABDOMEN: Soft, + bowel sounds, non-tender, non-distended EXTREMITIES: LLE examined. Suture lines clean. Medial line is healed No drainage. No DF/PF NEUROLOGIC: Left leg is numb from smalls down and cannot move toes. RLE intact motor and sensation. Assessment/Plan: 1. Compartment Syndrome LLE, S/P fasciotomy: NWB LLE, PT/OT. 2. Analgesia: Methadone 20 mg tid (0700,1500,2300). Consider addition of neuropathic pain med like gabapentin if needs more. 3. History of Polysubstance Abuse: Trying to avoid traditional opioids. Methadone for pain 4. Asthma: Singulair 5. DVT Prophylaxis: Heparin 6. Advanced Directives: Has MOLST. DNR 7. GERD: Protonix 8. Acute post-operative anemia: stable. 9. Disposition: Home tomorrow 10/25/18 18:11
[2018-10-25] MEDS: LORazepam TAB(*) 0.5 MG PO PRN (18:20)
[2018-10-25] MEDS: Clotrimazole 1% VAGINAL CREAM* 45 GM VAGINAL SCH (20:53)
[2018-10-26] MEDS: guaiFENesin LIQ* 100 MG/5 ML UDC PO PRN ×2 (02:10→07:28)
[2018-10-26] MEDS: Heparin VIAL(*) 5000 UNITS/ML VIAL (FIVE THOUSAND) SUBCUT SCH (06:19)
[2018-10-26] MEDS: Methadone TAB* 10 MG PO SCH (06:46)
[2018-10-26 06:48] VITALS: BP 100/64
[2018-10-26] MEDS: Ferrous Sulfate TAB* 325 MG PO SCH (07:27)
[2018-10-26] MEDS: Docusate CAP* 100 MG PO SCH (07:27)
[2018-10-26] MEDS: Venlafaxine EXT RELEASE CAP* 75 MG PO SCH (07:28)
[2018-10-26] MEDS: Moisturizing CREAM* 120 GM JAR TOPICAL SCH (07:28)
[2018-10-26] MEDS: Pantoprazole TAB * 40 MG TAB PO SCH (07:28)
--- NOTE | 2018-10-26 21:15 | DS ---
CC: Dr. Jeovany Huang * DISCHARGE SUMMARY: DATE OF ADMISSION: 10/11/18 DATE OF DISCHARGE: 10/26/18 DISCHARGE DIAGNOSES: 1. Compartment syndrome,left leg. 2. Fasciotomy, left leg. 3. History of polysubstance abuse. 4. Posttraumatic stress disorder. 5. Hepatitis C. 6. Gastroesophageal reflux disease. 7. Acute blood loss anemia. 8. Acute kidney injury. HISTORY OF ILLNESS/HOSPITAL COURSE: For complete history of the events leading up to her rehab stay, please see the history and physical dictated by me on . While on the rehab unit, the patient was fairly stable from the medical point of view. Because of her history of polysubstance abuse and alcoholism, her IV morphine and oral oxycodone were discontinued and she was started on methadone for pain. She was started with 10 mg 3 times a day. This was increased to 15 mg 3 times a day. Later, this was increased to 20 mg 3 times a day. Overall, she seemed to tolerate the medication. The patient was seen by Dr. Wen from Orthopedics. It was felt that she could begin weight-bearing with a CAM walker. The patient was told how to check her skin after ambulating with a CAM walker. Her sutures were removed from the medial suture line first and later from the lateral suture line. She seemed to be doing well otherwise medically. Her pulses remained intact. Her foot and distal leg, however, remained without any motor function. The patient was seen by both Physical and Occupational Therapy and made good gains with both disciplines. With physical therapy at the time of admission, the patient required contact guard for transfers. She could ambulate about 10 feet with contact guard. She could propel a wheelchair independently. With occupational therapy at the time of admission, the patient required contact guard for toilet transfer, min assist for toileting, min assist for lower body dressing and supervision for upper body dressing. By the time of discharge, the patient was independent with transfers, independent ambulating 50 feet. The patient was independent getting her CAM boot on and off, independent toileting, independent toilet transfers. The patient was discharged home on . Discharge diet was regular. DISCHARGE MEDICATIONS: 1. Methadone 20 mg orally 3 times a day. 2. Ativan 0.5 mg every 6 hours, not to exceed 2 pills per day. 3. Protonix 40 mg daily. 4. Effexor XR 150 mg daily. 5. Trazodone 300 mg at bedtime as needed. 6. Singulair 10 mg daily as needed. SERVICES AFTER DISCHARGE: Through visiting nurse service, she will have home nursing, home physical therapy and a home health aide. Follow up with Dr. Jorge Luis Wen as well as with [facility] of [facility]. She will also follow up with Dr. Cab[facility] at [facility] 2 [facility]. TIME SPENT: Time for this discharge was approximately 55 minutes, greater than half of which was spent with Yuki explaining her post-rehab medication plan, therapies, and followup with her surgeons. [id number]/CPS #: [id number] JAYLENE
== END 2018-10-26 10:00 | disposition home health service (06) | DRG 949 ==
LOC: PMRU 13:42
PROVIDERS: ADMIT Physical Medicine & Rehabilitation; ATTEND Physical Medicine & Rehabilitation
PROC: F07Z5ZZ Bed Mobility Treatment (ICD-10-PCS; principal; 2018-10-11)
PROC: F07Z9ZZ Gait Training/Functional Ambulation Treatment (ICD-10-PCS; 2018-10-11)
PROC: F07Z8ZZ Transfer Training Treatment (ICD-10-PCS; 2018-10-11)
PROC: F07Z4ZZ Wheelchair Mobility Treatment (ICD-10-PCS; 2018-10-11)
PROC: F08Z0ZZ Bathing/Showering Techniques Treatment (ICD-10-PCS; 2018-10-11)
PROC: F08Z1ZZ Dressing Techniques Treatment (ICD-10-PCS; 2018-10-11)
PROC: F08Z3ZZ Feeding/Eating Treatment (ICD-10-PCS; 2018-10-11)
DX: Z48.89 Encounter for other specified surgical aftercare (principal); D62 Acute posthemorrhagic anemia; N17.9 Acute kidney failure, unspecified; T79.A22D Traumatic compartment syndrome of left lower extremity, subsequent encounter; X58.XXXD Exposure to other specified factors, subsequent encounter; F41.9 Anxiety disorder, unspecified; F43.10 Post-traumatic stress disorder, unspecified; K21.9 Gastro-esophageal reflux disease without esophagitis; F14.10 Cocaine abuse, uncomplicated; B18.2 Chronic viral hepatitis C; F10.10 Alcohol abuse, uncomplicated; Z96.651 Presence of right artificial knee joint; Z62.819 Personal history of unspecified abuse in childhood; J45.909 Unspecified asthma, uncomplicated; Z79.899 Other long term (current) drug therapy; Z88.5 Allergy status to narcotic agent; Z88.8 Allergy status to other drugs, medicaments and biological substances; B37.3 Candidiasis of vulva and vagina; R20.0 Anesthesia of skin
CPT/HCPCS: 36415; 80053; 85025; 93005; A9270-GY; J1644; Q0164

== ENCOUNTER 2018-11-25 13:14 | Emergency (ER) | payer MEDICARE, MEDICAID ==
[2018-11-25] MEDS ORDERED: Ketorolac INJ* 60 MG/2 ML VIAL IM ONE (14:03)
[2018-11-25] MEDS ORDERED: HYDROmorphone INJ1* 1 MG/ML SYRINGE IM ONE (14:03)
--- NOTE | 2018-11-25 14:04 | ED ---
Lower Extremity - HPI Summary HPI Summary: This patient is a 48 year old F presenting to [facility] accompanied by father with a chief complaint of R foot pain that began one week ago. The patient rates the pain 10/10 in severity. Symptoms aggravated by nothing. Symptoms alleviated by nothing. Patient denies back pain. Patient reports she had a right knee replacement approximately 6 months ago. - History of Current Complaint Chief Complaint: EDExtremityLower Stated Complaint: SEVERE PAIN IN RIGHT LEG Time Seen by Provider: 11/25/18 13:57 Hx Obtained From: Patient Onset of Pain: Days Onset/Duration: Still Present Severity Initially: Severe Severity Currently: Severe Pain Intensity: 10 Pain Scale Used: 0-10 Numeric Timing: Constant Location: Is Discrete @ - R foot Associated Signs And Symptoms: Positive: Other - Negative back pain Aggravating Factor(s): Nothing Alleviating Factor(s): Nothing - Allergies/Home Medications Allergies/Adverse Reactions: Allergies Allergy/AdvReac Type Severity Reaction Status Date / Time nicotine [From PartTec ] Allergy Unknown Rash Verified 11/15/18 11:42 omeprazole Allergy See Comment Verified 11/15/18 11:42 tramadol AdvReac See Comment Verified 11/15/18 11:42 Home Medications: Home Medications Methadone TAB* [Dolophine TAB*] 20 mg PO 0700,1500,2300 MDD 6 11/25/18 [History Confirmed 11/25/18] PMH/Surg Hx/FS Hx/Imm Hx Previously Healthy: No Endocrine/Hematology History: Reports: Hx Thyroid Disease - h/o thyrotoxicosis Denies: Hx Diabetes Cardiovascular History: Denies: Hx Hypertension, Hx Pacemaker/ICD Respiratory History: Reports: Hx Asthma, Hx Chronic Bronchitis, Other Respiratory Problems/Disorders - 30 YR SMOKING HX GI History: Reports: Hx Gastroesophageal Reflux Disease Musculoskeletal History: Reports: Hx Arthritis - knees and legs bilaterally, Hx Orthopedic Injury - knee replacement Jun 2017, Hx Tendonitis - LEFT ACHILLES TENDONITIS, WEARS BRACE, MUCH BETTER, Other Musculoskeletal History - Chronic pain in left foot due to george bite years ago that has caused limp Sensory History: Denies: Hx Contacts or Glasses, Hx Hearing Aid Opthamlomology History: Denies: Hx Contacts or Glasses Neurological History: Denies: Other Neuro Impairments/Disorders Psychiatric History: Reports: Hx Anxiety, Hx Attention Deficit Hyperactivity Disorder, Hx Depression, Hx Post Traumatic Stress Disorder, Hx Inpatient Treatment, Hx Community Mental Health Tx, Hx Suicide Attempt, Hx Substance Abuse - heroine, cocaine, Other Psychiatric Issues/Disorders - Hx- Major Depressive D/O; Cluster B Personality D/O Denies: Hx Eating Disorder, Hx Panic Disorder, Hx Schizophrenia, Hx Bipolar Disorder, Hx of Violent Episodes Against Others - Surgical History Surgery Procedure, Year, and Place: 2016 -- Right [place] [place] Hx Anesthesia Reactions: No Infectious Disease History: No Infectious Disease History: Reports: Hx Hepatitis - Hepatitis C, Hx of Known/ Suspected MRSA - 06/21/17 ON FACE, DX [place] [facility] [place] TOOK ABX, OK NOW Denies: Hx Clostridium Difficile, Hx Human Immunodeficiency Virus (HIV), Traveled Outside the [place] in Last 30 Days - Family History Known Family History: Negative: Cardiac Disease, Diabetes - Social History Occupation: Disabled Lives: With Family Alcohol Use: Occasionally Alcohol Amount: 6-12 beers a day Hx Substance Use: Yes - reports polysubstance self-medication Substance Use Type: Reports: None Substance Use Comment - Amount & Last Used: no substance abuse past 4 weeks - pt drug court mandated Hx Tobacco Use: Yes Smoking Status (MU): Light Every Day Tobacco Smoker Type: Cigarettes Amount Used/How Often: half a pack a day in the last 30 days Length of Time of Smoking/Using Tobacco: 30 YRS Have You Smoked in the Last Year: Yes Review of Systems Negative: Chest Pain Positive: Other - Positive R foot pain. Negative back pain All Other Systems Reviewed And Are Negative: Yes Physical Exam - Summary Physical Exam Summary: Appearance: Well appearing, no pain distress Skin: warm, dry, reflects adequate perfusion Head/face: normal Eyes: EOMI, ROBE ENT: mucous membranes moist Neck: supple, non-tender Respiratory: CTA, breath sounds present Cardiovascular: RRR, pulses symmetrical Abdomen: non-tender, soft Bowel Sounds: present Musculoskeletal: Negative straight leg raise. Good pulses. Good color, strength/ ROM intact Neuro: normal, sensory motor intact, A&Ox3 Triage Information Reviewed: Yes Vital Signs On Initial Exam: Initial Vitals Temp Pulse Resp BP Pulse Ox 99 F 76 20 133/88 99 11/25/18 13:19 11/25/18 13:19 11/25/18 13:19 11/25/18 13:19 11/25/18 13:19 Vital Signs Reviewed: Yes Diagnostics - Vital Signs Vital Signs Temp Pulse Resp BP Pulse Ox 11/25/18 13:19 99 F 76 20 133/88 99 - Laboratory Lab Statement: Any lab studies that have been ordered have been reviewed, and results considered in the medical decision making process. - Additional Comments Diagnostic Additional Comments: Lower extremity US reveals, per radiologist, no evidence of DVT in the right lower extremity. ED physician has reviewed this radiology report. Lower Extremity Course/Dx - Course Course Of Treatment: Nurse's notes reviewed. 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 Today she complains of pain in her right foot that has been going on for some time. Her doctors feel that this is radicular in nature. She had an ultrasound today which is negative. She is able to walk. She is hoping for prescribed pain medications however she cannot be prescribed opiates due to pain contract relating to her methadone therapy. She was treated for pain here and given anti-inflammatory. She'll be started on a Medrol Dosepak and will follow up closely with her pain management and also primary care physician. - Diagnoses Differential Diagnosis/HQI/PQRI: Positive: Other - DVT, chronic pain, plantar fasciitis, arthritis Provider Diagnoses: Chronic pain syndrome, Acute pain of left foot, Opiate dependence Discharge - Sign-Out/Discharge Documenting (check all that apply): Patient Departure - Discharge home Patient Received Moderate/Deep Sedation with Procedure: No - Discharge Plan Condition: Improved Disposition: HOME Prescriptions: methylPREDNISolone [Medrol] 4 mg PO .SEE ADELA INSTRUCTION #1 tab.ds.pk Naproxen [Naproxen 500 mg tab] 500 mg PO BID PRN #[email or web address] MANUEL Reason: Pain Patient Education Materials: Chronic Pain (ED) Referrals: Jeovany Huang MD [Primary Care Provider] - Additional Instructions: Follow-up with her pain management doctors for any additional pain. Return with fever, increased pain, worse, new symptoms or other concerns. - Billing Disposition and Condition Condition: IMPROVED Disposition: Home - Attestation Statements Document Initiated by Scribe: Yes Documenting Scribe: Leigha Hernandez Provider For Whom Scribe is Documenting (Include Credential): Dr. Tom Lucio MD Scribe Attestation: I, Leigha Hernandez, scribed for Dr. Tom Lucio MD on 11/25/18 at 1619. Scribe Documentation Reviewed: Yes Provider Attestation: The documentation as recorded by the scribe, Leigha Hernandez accurately reflects the service I personally performed and the decisions made by me, Dr. Tom Lucio MD Status of Scribe Document: Viewed
[2018-11-25 15:46] VITALS: BP 123/92
== END 2018-11-25 15:44 | disposition home or self-care (01) ==
LOC: ED 13:14
DX: G89.4 Chronic pain syndrome (principal); M79.672 Pain in left foot; F11.20 Opioid dependence, uncomplicated; Z96.651 Presence of right artificial knee joint; Z88.5 Allergy status to narcotic agent; Z88.8 Allergy status to other drugs, medicaments and biological substances; F17.210 Nicotine dependence, cigarettes, uncomplicated
CPT/HCPCS: 96372; 99282; J1170; J1885

== ENCOUNTER 2018-11-26 03:14 | Emergency (ER) | payer MEDICARE, MEDICAID ==
[2018-11-26] MEDS ORDERED: Ketorolac INJ* 30 MG/ML 1 ML VIAL IM ONE (03:41)
[2018-11-26] MEDS ORDERED: Gabapentin CAP(*) 100 MG PO ONE (03:47)
--- NOTE | 2018-11-26 03:55 | ED ---
Lower Extremity - HPI Summary HPI Summary: This patient is a 48 year old F presenting to ED with a chief complaint of R leg pain from a pinched nerve since a couple weeks ago. She was seen in the ED yesterday for the same sx. The CC is described as worsened since onset. The patient rates the pain 10/10 in severity. Symptoms aggravated by nothing. Symptoms alleviated by nothing. The patient denies any other sx. - History of Current Complaint Chief Complaint: EDExtremityLower Stated Complaint: PINCHED NERVE IN MY RIGHT LEG IT HURTS SO BAD PER Time Seen by Provider: 11/26/18 03:41 Hx Obtained From: Patient Onset of Pain: Immediate Onset/Duration: Weeks Severity Initially: Severe Severity Currently: Severe Pain Intensity: 10 Pain Scale Used: 0-10 Numeric Timing: Constant, Lasting Weeks Location: Is Discrete @ - R leg Aggravating Factor(s): Nothing Alleviating Factor(s): Nothing - Allergies/Home Medications Allergies/Adverse Reactions: Allergies Allergy/AdvReac Type Severity Reaction Status Date / Time nicotine [facility] Allergy Unknown Rash Verified 11/26/18 12:45 omeprazole Allergy See Comment Verified 11/26/18 12:45 tramadol AdvReac See Comment Verified 11/26/18 12:45 PMH/Surg Hx/FS Hx/Imm Hx Endocrine/Hematology History: Reports: Hx Thyroid Disease - h/o thyrotoxicosis Denies: Hx Diabetes Cardiovascular History: Denies: Hx Hypertension, Hx Pacemaker/ICD Respiratory History: Reports: Hx Asthma, Hx Chronic Bronchitis, Other Respiratory Problems/Disorders - 30 YR SMOKING HX GI History: Reports: Hx Gastroesophageal Reflux Disease Musculoskeletal History: Reports: Hx Arthritis - knees and legs bilaterally, Hx Orthopedic Injury - knee replacement Jun 2017, Hx Tendonitis - LEFT ACHILLES TENDONITIS, WEARS BRACE, MUCH BETTER, Other Musculoskeletal History - Chronic pain in left foot due to george bite years ago that has caused limp Sensory History: Denies: Hx Contacts or Glasses, Hx Hearing Aid Opthamlomology History: Denies: Hx Contacts or Glasses Neurological History: Denies: Other Neuro Impairments/Disorders Psychiatric History: Reports: Hx Anxiety, Hx Attention Deficit Hyperactivity Disorder, Hx Depression, Hx Post Traumatic Stress Disorder, Hx Inpatient Treatment, Hx Community Mental Health Tx, Hx Suicide Attempt, Hx Substance Abuse - heroine, cocaine, Other Psychiatric Issues/Disorders - Hx- Major Depressive D/O; Cluster B Personality D/O Denies: Hx Eating Disorder, Hx Panic Disorder, Hx Schizophrenia, Hx Bipolar Disorder, Hx of Violent Episodes Against Others - Surgical History Surgery Procedure, Year, and Place: 2016 -- Right Knee surgery-[facility] [place] by [place]. Sweeney Hx Anesthesia Reactions: No Infectious Disease History: No Infectious Disease History: Reports: Hx Hepatitis - Hepatitis C, Hx of Known/ Suspected MRSA - 06/21/17 ON FACE, DX AT [facility] [place], TOOK ABX, [place] NOW Denies: Hx Clostridium Difficile, Hx Human Immunodeficiency Virus (HIV), Traveled Outside the [place] in Last 30 Days - Family History Known Family History: Negative: Cardiac Disease, Diabetes - Social History Alcohol Use: Occasionally Alcohol Amount: 6-12 beers a day Hx Substance Use: Yes - reports polysubstance self-medication Substance Use Type: Reports: None Substance Use Comment - Amount & Last Used: no substance abuse past 4 weeks - pt drug court mandated Hx Tobacco Use: Yes Smoking Status (MU): Light Every Day Tobacco Smoker Type: Cigarettes Amount Used/How Often: half a pack a day in the last 30 days Length of Time of Smoking/Using Tobacco: 30 YRS Have You Smoked in the Last Year: Yes Review of Systems Negative: Fever Positive: Other - R leg pain from a pinched nerve All Other Systems Reviewed And Are Negative: Yes Physical Exam - Summary Physical Exam Summary: Appearance: Well-appearing, Well-nourished, lying in bed comfortable Skin: Warm, dry, no obvious rash Eyes: sclera anicteric, no conjunctival pallor ENT: mucous membranes moist Neck: deferred Respiratory: No signs of respiratory distress Cardiovascular: Appears well perfused, pulses are nml Abdomen: deferred Musculoskeletal: Moving all 4 extremities without obvious discomfort, R leg appears normal, good muscle tone and strength, normal circulation and motor and sensation Neurological: Awake and alert, mentation is normal, speech is fluent and appropriate Psychiatric: affect is normal, does not appear anxious or depressed Triage Information Reviewed: Yes Vital Signs On Initial Exam: Initial Vitals Temp Pulse Resp BP Pulse Ox 98.4 F 79 18 139/98 100 11/26/18 03:17 11/26/18 03:17 11/26/18 03:17 11/26/18 03:17 11/26/18 03:17 Vital Signs Reviewed: Yes Diagnostics - Vital Signs Vital Signs Temp Pulse Resp BP Pulse Ox 03/17/19 03:17 98.4 F 79 18 139/98 100 - Laboratory Lab Statement: Any lab studies that have been ordered have been reviewed, and results considered in the medical decision making process. Lower Extremity Course/Dx - Course Assessment/Plan: This patient is a 48 year old F presenting to ED with a chief complaint of R leg pain from a pinched nerve since a couple weeks ago. In the ED course, the patient was given Gabapentin and Toradol. Patient will be discharged with chronic right leg pain. Patient understands and agrees with this plan. - Diagnoses Differential Diagnosis/HQI/PQRI: Positive: Other - chronic R leg pain Provider Diagnoses: Chronic pain of right lower extremity Discharge - Sign-Out/Discharge Documenting (check all that apply): Patient Departure - discharge Patient Received Moderate/Deep Sedation with Procedure: No - Discharge Plan Condition: Good Disposition: HOME Prescriptions: Gabapentin CAP(*) [Neurontin 100 mg CAP(*)] 100 mg PO TID #30 cap Patient Education Materials: Leg Pain (ED) Referrals: Jeovany Huang MD [Primary Care Provider] - Additional Instructions: Unfortunately there is not anything further we can do for your pain problem here in the ED. You will have to discuss this with your pain sports management internship for further care. Starting gabapentin seems like a reasonable thing to try in the interim, but your doctor can decide if that is appropriate going forward and at what dose. - Billing Disposition and Condition Condition: GOOD Disposition: Home - Attestation Statements Document Initiated by Moses: Yes Documenting Scribe: Tommie Adkins Provider For Whom Moses is Documenting (Include Credential): Varghese Whitley MD Scribe Attestation: I, Tommie Adkins, scribed for Varghese Whitley MD on 12/02/18 at 2359. Scribe Documentation Reviewed: Yes Provider Attestation: The documentation as recorded by the Tommie lock accurately reflects the service I personally performed and the decisions made by me, Varghese Whitley MD Status of Scribbari Document: Viewed
[2018-11-26 04:00] VITALS: BP 0/0
== END 2018-11-26 03:58 | disposition home or self-care (01) ==
LOC: ED 03:14
DX: M79.661 Pain in right lower leg (principal); G89.29 Other chronic pain; F17.210 Nicotine dependence, cigarettes, uncomplicated; K21.9 Gastro-esophageal reflux disease without esophagitis; E07.9 Disorder of thyroid, unspecified; F90.9 Attention-deficit hyperactivity disorder, unspecified type; F32.9 Major depressive disorder, single episode, unspecified; B19.20 Unspecified viral hepatitis C without hepatic coma; F11.20 Opioid dependence, uncomplicated; M79.671 Pain in right foot; R19.7 Diarrhea, unspecified
CPT/HCPCS: 96372; 99282; A9270-GY; J1885

== ENCOUNTER 2018-11-26 12:02 | Emergency (ER) | payer MEDICARE, MEDICAID ==
--- NOTE | 2018-11-26 12:08 | UC ---
Lower Extremity/Ankle HPI - HPI Summary HPI Summary: Patient is year old , who present today to the urgent care with for past days. Denies any new soap, detergent , cosmetics, food or a possible exposure. Denies any fever, chills, cough chest pain or shortness of breath . No diaphoresis. Denies any abdominal pain , nausea or vomiting , diarrhea or constipation. Patient tried over the counter medication without much relief. - History of Current Complaint Stated Complaint: PAIN IN FOOT TO THIGH Time Seen by Provider: 11/26/18 12:04 - Allergies/Home Medications Allergies/Adverse Reactions: Allergies Allergy/AdvReac Type Severity Reaction Status Date / Time nicotine [From Nicoderm CQ] Allergy Unknown Rash Verified 11/26/18 03:17 omeprazole Allergy See Comment Verified 11/26/18 03:17 tramadol AdvReac See Comment Verified 11/26/18 03:17 PMH/Surg Hx/FS Hx/Imm Hx - Surgical History Surgical History: Yes Surgery Procedure, Year, and Place: 2016 -- Right Knee surgery-[facility] by Dr. Sweeney - Family History Known Family History: Negative: Cardiac Disease, Diabetes - Social History Alcohol Use: Occasionally Alcohol Amount: 6-12 beers a day Substance Use Type: None Substance Use Comment - Amount & Last Used: no substance abuse past 4 weeks - pt drug court mandated Smoking Status (MU): Light Every Day Tobacco Smoker Type: Cigarettes Amount Used/How Often: half a pack a day in the last 30 days Length of Time of Smoking/Using Tobacco: 30 YRS Have You Smoked in the Last Year: Yes Household Exposure Type: Cigarettes - Immunization History Most Recent Influenza Vaccination: patient states does not recieve Most Recent Tetanus Shot: unknown Most Recent Pneumonia Vaccination: 09/21/18 Physical Exam - Summary Physical Exam Summary: Physical Exam: Const: Appears well. No signs of apparent distress present. Alert and oriented x 3. Musculo: Walks with a normal gait. Head/Face: Atraumatic, normocephalic on inspection. Eyes: EOMI and PERRLA in both eyes. Conjunctivae clear. No discharge noted ENT: Hearing normal Respiratory: Respirations are unlabored. CVS: Regular rate and Rhythm, S1S2 normal , no murmurs identified. Extremities: Peripheral circulation is grossly normal. Pulses 2+ Abdomen : Soft non tender Skin: No lesions or rash located on the upper extremities or on the lower extremities. Neuro: Cranial nerves II to XII intact, motor and sensory intact. DTR Intact bilaterally. Mood is normal. Affect is normal. Ankle/Feet examination: Ankle: Gait: Normal weight bearing, Inspection/palpation: No bruising, swelling or crepitus noted. There is tenderness to palpation in the area of ATFL, CFL, PTFL, Deltoid ligament. There is no tenderness to palpation of the medial malleolus, lateral malleolus or the base of 5th metatarsal. Ankle mortise appears intact. ROM: full AROM: Full dorsiflexion(20 deg), Full plantar flexion(50 deg) Strength: 5/5 with dorsiflexion, plantarflexion, inversion and eversion Special tests:Anterior drawer test is negative . Side to side test negative.Talar tilt test(inversion stress) and the eversion stress test negative. Negative Squeeze and External Rotation tests. Heel tap test negative. Ankle of other side is negative for bruising, swelling or tenderness to palpation. It has full ROM, strength and stability. Feet: Insp/Palp: Feet normal to inspection bilaterally, normal arch of the feet bilaterally. His Strength: EHL 5/5 blaterally Skin: No scars, rashes, lesions or ecchymosis. 2+ posterior tibial and dorsalis pedis pulse bilaterally. Neuro: Sensation to light touch is intact in the lower extremities bilaterally. Coordination normal. Triage Information Reviewed: Yes Vital Signs Reviewed: Yes Lower Extremity Course/Dx - Course Course Of Treatment: During the visit today, we obtained . We discussed the findings and further plan. I will prescribe the medication to the pharmacy . Patient expressed understanding . Discharge - Discharge Plan Referrals: Jeovany Huang MD [Primary Care Provider] - Additional Instructions: Please start taking the medication as prescribed to the pharmacy . Follow up with your primary care doctor in 2 days. Patients blood pressure slightly high in Urgent care today , plan follow up with PCP for better control Return to Urgent care / ER if symptoms get worse.
== END 2018-11-26 12:12 | disposition left against medical advice (07) ==
LOC: UCEAST 12:02
DX: Z53.21 Procedure and treatment not carried out due to patient leaving prior to being seen by health care provider (principal)

== ENCOUNTER 2018-11-26 12:31 | Emergency (ER) | payer MEDICARE, MEDICAID ==
[2018-11-26] MEDS ORDERED: HYDROmorphone INJ1* 1 MG/ML SYRINGE IM ONE (15:59)
--- NOTE | 2018-11-26 16:16 | ED ---
Lower Extremity - HPI Summary HPI Summary: Patient is a 48 y/o female who presents to the ED c/o foot pain. As per medical records, she was here yesterday for right foot pain that began 1 week ago. Patient was given a shot of Toradol and Dilaudid which relieved her pain for 8 hours. She again came early this morning for worsening foot pain. Patient was referred to the pain clinic, however they are not open today. Later today she then went to the , but came here because they only had Toradol and not Dilaudid. Patient now c/o bilateral foot pain that is still worsening, and mild diarrhea. She rates her pain as a 10/10 in severity. Patient is on 60 mg Methadone. She had a right knee replacement 6 months ago. PMHx compartment syndrome of left foot. - History of Current Complaint Chief Complaint: EDExtremityLower Stated Complaint: RT LEG PAIN WANTS PAIN SHOT PER PT Time Seen by Provider: 11/26/18 15:50 Hx Obtained From: Patient, Medical Records Mechanism Of Injury: Other - pinched nerve Onset/Duration: Worse Since - 1 Severity Currently: Severe Pain Intensity: 10 Pain Scale Used: 0-10 Numeric Timing: Constant Location: Is Discrete @ - bilateral feet Associated Signs And Symptoms: Positive: Negative Related History: Other - here yesterday and earlier today - Allergies/Home Medications Allergies/Adverse Reactions: Allergies Allergy/AdvReac Type Severity Reaction Status Date / Time nicotine [From [facility]] Allergy Unknown Rash Verified 11/26/18 12:45 omeprazole Allergy See Comment Verified 11/26/18 12:45 tramadol AdvReac See Comment Verified 11/26/18 12:45 PMH/Surg Hx/FS Hx/Imm Hx Endocrine/Hematology History: Reports: Hx Thyroid Disease - h/o thyrotoxicosis Denies: Hx Diabetes Cardiovascular History: Denies: Hx Hypertension, Hx Pacemaker/ICD Respiratory History: Reports: Hx Asthma, Hx Chronic Bronchitis, Other Respiratory Problems/Disorders - 30 YR SMOKING HX GI History: Reports: Hx Gastroesophageal Reflux Disease Musculoskeletal History: Reports: Hx Arthritis - knees and legs bilaterally, Hx Orthopedic Injury - knee replacement Jun 2017, Hx Tendonitis - LEFT ACHILLES TENDONITIS, WEARS BRACE, MUCH BETTER, Other Musculoskeletal History - Chronic pain in left foot due to george bite years ago that has caused limp Sensory History: Denies: Hx Contacts or Glasses, Hx Hearing Aid Opthamlomology History: Denies: Hx Contacts or Glasses Neurological History: Denies: Other Neuro Impairments/Disorders Psychiatric History: Reports: Hx Anxiety, Hx Attention Deficit Hyperactivity Disorder, Hx Depression, Hx Post Traumatic Stress Disorder, Hx Inpatient Treatment, Hx Community Mental Health Tx, Hx Suicide Attempt, Hx Substance Abuse - heroine, cocaine, Other Psychiatric Issues/Disorders - Hx- Major Depressive D/O; Cluster B Personality D/O Denies: Hx Eating Disorder, Hx Panic Disorder, Hx Schizophrenia, Hx Bipolar Disorder, Hx of Violent Episodes Against Others - Surgical History Surgery Procedure, Year, and Place: 2016 -- Right Knee surgery-[facility] [place] by Dr. Sweeney Hx Anesthesia Reactions: No Infectious Disease History: No Infectious Disease History: Reports: Hx Hepatitis - Hepatitis C, Hx of Known/ Suspected MRSA - 06/21/17 ON FACE, DX AT [facility] [place], TOOK ABX, OK NOW Denies: Hx Clostridium Difficile, Hx Human Immunodeficiency Virus (HIV), Traveled Outside the [place] in Last 30 Days - Family History Known Family History: Negative: Cardiac Disease, Diabetes - Social History Alcohol Use: Occasionally Alcohol Amount: 6-12 beers a day Hx Substance Use: Yes - reports polysubstance self-medication Substance Use Type: Reports: None Substance Use Comment - Amount & Last Used: no substance abuse past 4 weeks - pt drug court mandated Hx Tobacco Use: Yes Smoking Status (MU): Light Every Day Tobacco Smoker Type: Cigarettes Amount Used/How Often: half a pack a day in the last 30 days Length of Time of Smoking/Using Tobacco: 30 YRS Have You Smoked in the Last Year: Yes Review of Systems Positive: Diarrhea - mild Positive: Myalgia - bilateral feet All Other Systems Reviewed And Are Negative: Yes Physical Exam - Summary Physical Exam Summary: Appearance: Well appearing, no pain distress Skin: warm, dry, reflects adequate perfusion, surgical scar on RLE Head/face: normal Eyes: EOMI, ROBE ENT: mucous membranes moist Neck: supple, non-tender Respiratory: CTA, breath sounds present Cardiovascular: RRR, pulses symmetrical, good pedal pulses Abdomen: non-tender, soft Bowel Sounds: present Musculoskeletal: normal, strength/ROM intact, able to ambulate Neuro: normal, sensory motor intact, A&Ox3 Triage Information Reviewed: Yes Vital Signs On Initial Exam: Initial Vitals Temp Pulse Resp BP Pulse Ox 98.9 F 73 18 135/88 99 11/26/18 12:41 11/26/18 12:41 11/26/18 12:41 11/26/18 12:41 11/26/18 12:41 Vital Signs Reviewed: Yes Diagnostics - Vital Signs Vital Signs Temp Pulse Resp BP Pulse Ox 11/26/18 14:23 99.3 F 86 12 122/88 100 11/26/18 12:41 98.9 F 73 18 135/88 99 - Laboratory Lab Statement: Any lab studies that have been ordered have been reviewed, and results considered in the medical decision making process. Lower Extremity Course/Dx - Course Course Of Treatment: Nurse's notes reviewed. Patient with opiate dependence currently on methadone presents for the fourth time in 2 days requesting pain medication. Her pain management is not available until tomorrow, Tuesday. She was given a shot of pain medication here and was improved. - Diagnoses Provider Diagnoses: Chronic pain syndrome, Opiate dependence Discharge - Sign-Out/Discharge Documenting (check all that apply): Patient Departure - Discharge Patient Received Moderate/Deep Sedation with Procedure: No - Discharge Plan Condition: Improved Disposition: HOME Patient Education Materials: Chronic Pain (ED) Referrals: Jeovany Huang MD [Primary Care Provider] - [facility],. [[employer], APPLICATION, OTHER] - Additional Instructions: Follow-up with her pain management doctors and with [facility] first thing tomorrow morning. Will not be given any further opiate pain medication from the ER. Return if worse, new symptoms or other concerns. - Billing Disposition and Condition Condition: IMPROVED Disposition: Home - Attestation Statements Document Initiated by Moses: Yes Documenting Scribe: Cyn Monaco Provider For Whom Moses is Documenting (Include Credential): Tom Lucio MD Scribe Attestation: Cyn Rich, scribed for Tom Lucio MD on 11/26/18 at 1823. Scribe Documentation Reviewed: Yes Provider Attestation: The documentation as recorded by the Cyn lock accurately reflects the service I personally performed and the decisions made by me, Tom Lucio MD Status of Scribe Document: Viewed
[2018-11-26 16:30] VITALS: BP 113/81
== END 2018-11-26 16:30 | disposition home or self-care (01) ==
LOC: ED 12:31
DX: G89.4 Chronic pain syndrome (principal); F11.20 Opioid dependence, uncomplicated; M79.671 Pain in right foot; R19.7 Diarrhea, unspecified; F17.210 Nicotine dependence, cigarettes, uncomplicated
CPT/HCPCS: 96372; 99282; J1170

== ENCOUNTER 2018-12-05 18:41 | Emergency (ER) | payer MEDICARE, MEDICAID ==
[2018-12-05] MEDS ORDERED: oxyCODONE/Acetamin 5/325 MG* TAB PO ONE (19:26)
[2018-12-05] MEDS ORDERED: Naproxen TAB* 250 MG PO ONE (19:26)
--- NOTE | 2018-12-05 19:30 | ED ---
Lower Extremity - HPI Summary HPI Summary: Patient is a 48 y/o female who presents to the ED c/o foot pain. She has chronic right foot pain. Patient states she now has sharp shooting pains to her right ankle, rated a 10/10 in severity. She also states her foot feels cold. Patient is able to ambulate and bear weight on her foot. Patient is on Methadone and 300 mg Gabapentin TID, which she claims has not been helping her pain at all. She is here because her pain is not being managed and she cant get in to see Dr. Cabrera until next week. As per medical records, she was here several times last week for the foot pain and continuously requested Toradol and Dilaudid. She was instructed to follow up with her PCP and the pain clinic. - History of Current Complaint Chief Complaint: EDExtremitEliana Stated Complaint: MY FOOT IS IN REALLY BAD PAIN PER PT Time Seen by Provider: 12/05/18 19:22 Hx Obtained From: Patient, Medical Records Mechanism Of Injury: Other - No injury Onset/Duration: Worse Since Severity Currently: Severe Pain Intensity: 10 Pain Scale Used: 0-10 Numeric Timing: Constant Location: Is Discrete @ - right ankle Character Of Pain: Sharp - shooting Aggravating Factor(s): Nothing Alleviating Factor(s): Nothing Able to Bear Weight: Yes - Allergies/Home Medications Allergies/Adverse Reactions: Allergies Allergy/AdvReac Type Severity Reaction Status Date / Time nicotine [From [facility]] Allergy Unknown Rash Verified 12/05/18 18:51 omeprazole Allergy See Comment Verified 12/05/18 18:51 tramadol AdvReac See Comment Verified 12/05/18 18:51 PMH/Surg Hx/FS Hx/Imm Hx Endocrine/Hematology History: Reports: Hx Thyroid Disease - h/o thyrotoxicosis Denies: Hx Diabetes Cardiovascular History: Denies: Hx Hypertension, Hx Pacemaker/ICD Respiratory History: Reports: Hx Asthma, Hx Chronic Bronchitis, Other Respiratory Problems/Disorders - 30 YR SMOKING HX GI History: Reports: Hx Gastroesophageal Reflux Disease Musculoskeletal History: Reports: Hx Arthritis - knees and legs bilaterally, Hx Orthopedic Injury - knee replacement Jun 2017, Hx Tendonitis - LEFT ACHILLES TENDONITIS, WEARS BRACE, MUCH BETTER, Other Musculoskeletal History - Chronic pain in left foot due to george bite years ago that has caused limp Sensory History: Denies: Hx Contacts or Glasses, Hx Hearing Aid Opthamlomology History: Denies: Hx Contacts or Glasses Neurological History: Denies: Other Neuro Impairments/Disorders Psychiatric History: Reports: Hx Anxiety, Hx Attention Deficit Hyperactivity Disorder, Hx Depression, Hx Post Traumatic Stress Disorder, Hx Inpatient Treatment, Hx Community Mental Health Tx, Hx Suicide Attempt, Hx Substance Abuse - heroine, cocaine, Other Psychiatric Issues/Disorders - Hx- Major Depressive D/O; Cluster B Personality D/O Denies: Hx Eating Disorder, Hx Panic Disorder, Hx Schizophrenia, Hx Bipolar Disorder, Hx of Violent Episodes Against Others - Surgical History Surgery Procedure, Year, and Place: 2016 -- Right Knee surgery-[facility] [place] by Dr. Sweeney Hx Anesthesia Reactions: No Infectious Disease History: No Infectious Disease History: Reports: Hx Hepatitis - Hepatitis C, Hx of Known/ Suspected MRSA - 06/21/17 ON FACE, DX AT [facility] [place], TOOK ABX, [place] NOW Denies: Hx Clostridium Difficile, Hx Human Immunodeficiency Virus (HIV), Traveled Outside the [place] in Last 30 Days - Family History Known Family History: Negative: Cardiac Disease, Diabetes - Social History Alcohol Use: Occasionally Alcohol Amount: 6-12 beers a day Hx Substance Use: Yes - reports polysubstance self-medication Substance Use Type: Reports: Cocaine, Heroin Substance Use Comment - Amount & Last Used: no substance abuse past 4 weeks - pt drug court mandated Hx Tobacco Use: Yes Smoking Status (MU): Light Every Day Tobacco Smoker Type: Cigarettes Amount Used/How Often: half a pack a day in the last 30 days Length of Time of Smoking/Using Tobacco: 30 YRS Have You Smoked in the Last Year: Yes Review of Systems Positive: Myalgia - right heel pain Neurological: Other - right foot feels cold All Other Systems Reviewed And Are Negative: Yes Physical Exam - Summary Physical Exam Summary: Appearance: well appearing, no pain distress Skin: warm, dry, reflects adequate perfusion, no open wounds on right foot Head/face: normal Eyes: EOMI, ROBE ENT: mucous membranes moist Neck: supple, non-tender Respiratory: CTA, breath sounds present Cardiovascular: RRR, pulses symmetrical, bounding right pedal pulse Abdomen: non-tender, soft Bowel Sounds: present Musculoskeletal: normal, strength/ROM intact Neuro: normal, sensory motor intact, A&Ox3 Triage Information Reviewed: Yes Vital Signs On Initial Exam: Initial Vitals Temp Pulse Resp BP Pulse Ox 99.5 F 87 20 143/105 98 12/05/18 18:49 12/05/18 18:49 12/05/18 18:49 12/05/18 18:49 12/05/18 18:49 Vital Signs Reviewed: Yes Diagnostics - Vital Signs Vital Signs Temp Pulse Resp BP Pulse Ox 12/05/18 18:49 99.5 F 87 20 143/105 98 - Laboratory Lab Statement: Any lab studies that have been ordered have been reviewed, and results considered in the medical decision making process. Lower Extremity Course/Dx - Course Course Of Treatment: Patient with history of chronic right foot pain and chronic pain syndrome treated by pain management. She has been here a number of times here recently for exacerbation. She is on methadone for baseline control. She was given a Percocet here and is discharged to follow up closely with her primary care/pain management doctor. - Diagnoses Provider Diagnoses: Opiate dependence, Chronic pain syndrome, Chronic foot pain Discharge - Sign-Out/Discharge Documenting (check all that apply): Patient Departure - Discharge Patient Received Moderate/Deep Sedation with Procedure: No - Discharge Plan Condition: Improved Disposition: HOME Patient Education Materials: Chronic Pain (ED) Referrals: Tom Wilhelm MD [Medical Doctor] - Jefry Mazariegos DPM [Doctor of Podiatric Medicine] - Jeovany Huang MD [Primary Care Provider] - [employer],. [[employer], APPLICATION, OTHER] - Additional Instructions: Call first thing in the morning to schedule appointments with neurology and podiatry. Call your pain management doctors to get the first available appointment. Return if worse, new symptoms or other concerns. Your primary care doctor can also schedule testing that may help the specialist. - Billing Disposition and Condition Condition: IMPROVED Disposition: Home - Attestation Statements Document Initiated by Scribe: Yes Documenting Scribe: Cyn Monaco Provider For Whom Alfredoibbari is Documenting (Include Credential): Tom Lucio MD Scribe Attestation: Cyn Rich, scribed for Tom Lucio MD on 12/06/18 at 0253. Scribe Documentation Reviewed: Yes Provider Attestation: The documentation as recorded by the scribCyn candelaria accurately reflects the service I personally performed and the decisions made by , Tom Lucio MD Status of Scribe Document: Viewed
[2018-12-05 21:13] VITALS: BP 132/82
== END 2018-12-05 21:10 | disposition home or self-care (01) ==
LOC: ED 18:41
DX: M79.671 Pain in right foot (principal); G89.4 Chronic pain syndrome; F11.20 Opioid dependence, uncomplicated; F17.210 Nicotine dependence, cigarettes, uncomplicated; K21.9 Gastro-esophageal reflux disease without esophagitis; E07.9 Disorder of thyroid, unspecified
CPT/HCPCS: 99281; A9270-GY

== ENCOUNTER 2019-01-03 19:56 | Inpatient (IN) | payer MEDICARE, MEDICAID ==
[2019-01-03 21:25] LABS: ABS Basophils 0.1 10^3/ul (0-0.2); ABS Eosinophils 0.1 10^3/ul (0-0.6); ABS Lymphocytes 2.3 10^3/ul (1.0-4.8); ABS Monocytes 1.4 10^3/ul (0-0.8); ABS Neutrophils 7.1 10^3/ul (1.5-7.7); ABS Nucleated RBC 0 10^3/ul; Eosinophil % 0.5 %; Hematocrit 36 % (33-41); Hemoglobin 12.1 g/dL (12.0-16.0); Lymphocyte % 21.3 %; Mean Corpuscular HGB Conc 34 g/dL (31-36); Mean Corpuscular Hemoglobin 27 pg (27-31); Mean Corpuscular Volume 80 fL (80-97); Mean Platelet Volume 7.9 fL (7.4-10.4); Nucleated Red Blood Cells % 0; Platelet Count 533 10^3/uL (150-450); Red Blood Count 4.51 10^6 /uL (3.70-4.87); Red Cell Distribution Width 14 % (10.5-15)
[2019-01-03 21:35] LABS: ALT 15 U/L (7-52); AST 22 U/L (13-39); Albumin 3.9 g/dL (3.2-5.2); Albumin/Globulin Ratio 1.1 (1-3); Alkaline Phosphatase 256 U/L (34-104); Anion Gap 12 mmol/L (2-11); BUN/Creatinine Ratio 10.3 (8-20); Blood Urea Nitrogen 8 mg/dL (6-24); CO2 Carbon Dioxide 28 mmol/L (22-32); Calcium 9.5 mg/dL (8.6-10.3); Chloride 96 mmol/L (101-111); EGFR African American 96.2 (>60); EGFR Non-African American 79.5 (>60); Globulin 3.6 g/dL (2-4); Glucose 78 mg/dL (70-100); Sodium 136 mmol/L (135-145); Total Protein 7.5 g/dL (6.4-8.9)
[2019-01-03 21:42] LABS: HCG Pregnancy 1.24 mIU/mL
[2019-01-03 21:55] LABS: Acetaminophen < 15 mcg/mL; Alcohol < 10 mg/dL (<10); Salicylate < 2.50 mg/dL (<30)
[2019-01-03] MEDS ORDERED: Potassium Chlor TAB* 20 MEQ TAB.ER PO ONE (21:57)
[2019-01-03 22:08] LABS: TSH (Thyroid Stimulating Horm) 0.79 mcIU/mL (0.34-5.60)
[2019-01-03] MEDS ORDERED: ceFAZolin 1 GM ADVAN(*) 1 GM in NS 0.9% 50 ML* 50 ML IVPB ONE (22:50)
[2019-01-04] MEDS ORDERED: Ondansetron INJ* 2 MG/ML VIAL IV PRN (01:19)
[2019-01-04] MEDS ORDERED: Cefepime 2 GM in Dextrose(*) 2 GM/50 ML BAG IV ONE (01:23)
[2019-01-04] MEDS ORDERED: Vancomycin(*) 1,000 MG in NS 0.9% 250 ML* 250 ML IVPB ONE (01:23)
[2019-01-04 02:00] LABS: C Reactive Protein 78.29 mg/L (<8.01)
--- NOTE | 2019-01-04 02:00 | ED ---
Lower Extremity - HPI Summary HPI Summary: Patient complains of cellulitis to left foot 8 days and thoughts of SI x 2 days subsequent to infection. She has history of depression, PTSD, states she does not feel like she can manage infection by herself. Patient has history of fasciotomy for compartment syndrome, states she has decreased sensation in her foot and must always be checking for wounds. Patient states she had 2 blisters on her foot which became wounds. Patient was seen by orthopedics Dr. Ayala 8 days ago diagnosed with cellulitis and placed on Keflex PO. Patient states infection and redness has improved significantly, but states that she has not changed dressing in 2 days and foot has started to smell. Denies trauma, fever , cough, sore throat, CP, SOB, N/V/V abdominal pain, change in urine, change in BM. Admits to 3 beers today, and marijuana use. Denies any other recreational drug use 1 year. Patient has history of substance abuse. Patient wears supportive boot due to history of fasciotomy. - History of Current Complaint Chief Complaint: EDMentalHealth Stated Complaint: DOESNT FEEL SAFE, POSSIBLE SI PER PT Time Seen by Provider: 01/03/19 20:23 Hx Obtained From: Patient Mechanism Of Injury: Unknown Onset of Pain: Days Onset/Duration: Days Severity Initially: Moderate Severity Currently: Moderate Pain Intensity: 8 Pain Scale Used: 0-10 Numeric Timing: Constant Location: Is Discrete @ Character Of Pain: Dull, Aching, Throbbing Associated Signs And Symptoms: Positive: Swelling, Redness Aggravating Factor(s): Standing, Ambulation Able to Bear Weight: Yes - Allergies/Home Medications Allergies/Adverse Reactions: Allergies Allergy/AdvReac Type Severity Reaction Status Date / Time nicotine [From [facility]] Allergy Unknown Rash Verified 12/05/18 18:51 omeprazole Allergy See Comment Verified 12/05/18 18:51 tramadol AdvReac See Comment Verified 12/05/18 18:51 PMH/Surg Hx/FS Hx/Imm Hx Endocrine/Hematology History: Reports: Hx Thyroid Disease - h/o thyrotoxicosis Denies: Hx Diabetes Cardiovascular History: Denies: Hx Hypertension, Hx Pacemaker/ICD Respiratory History: Reports: Hx Asthma, Hx Chronic Bronchitis, Other Respiratory Problems/Disorders - 30 YR SMOKING HX GI History: Reports: Hx Gastroesophageal Reflux Disease Musculoskeletal History: Reports: Hx Arthritis - knees and legs bilaterally, Hx Orthopedic Injury - knee replacement Jun 2017, Hx Tendonitis - LEFT ACHILLES TENDONITIS, WEARS BRACE, MUCH BETTER, Other Musculoskeletal History - Chronic pain in left foot due to george bite years ago that has caused limp Sensory History: Denies: Hx Contacts or Glasses, Hx Hearing Aid Opthamlomology History: Denies: Hx Contacts or Glasses Neurological History: Denies: Other Neuro Impairments/Disorders Psychiatric History: Reports: Hx Anxiety, Hx Attention Deficit Hyperactivity Disorder, Hx Depression, Hx Post Traumatic Stress Disorder, Hx Inpatient Treatment, Hx Community Mental Health Tx, Hx Suicide Attempt, Hx Substance Abuse - heroine, cocaine, Other Psychiatric Issues/Disorders - Hx- Major Depressive D/O; Cluster B Personality D/O Denies: Hx Eating Disorder, Hx Panic Disorder, Hx Schizophrenia, Hx Bipolar Disorder, Hx of Violent Episodes Against Others - Surgical History Surgery Procedure, Year, and Place: 2016 -- Right Knee surgery-[facility] [place] by Dr. Sweeney Hx Anesthesia Reactions: No Infectious Disease History: No Infectious Disease History: Reports: Hx Hepatitis - Hepatitis C, Hx of Known/ Suspected MRSA - 06/21/17 ON FACE, DX AT [facility] [place], TOOK ABX, [place] NOW Denies: Hx Clostridium Difficile, Hx Human Immunodeficiency Virus (HIV), Traveled Outside the [place] in Last 30 Days - Family History Known Family History: Negative: Cardiac Disease, Diabetes - Social History Alcohol Use: Occasionally Alcohol Amount: 6-12 beers a day Hx Substance Use: Yes - reports polysubstance self-medication Substance Use Type: Reports: Cocaine, Heroin Substance Use Comment - Amount & Last Used: no substance abuse past 4 weeks - pt drug court mandated Hx Tobacco Use: Yes Smoking Status (MU): Current Every Day Smoker Type: Cigarettes Amount Used/How Often: half a pack a day in the last 30 days Length of Time of Smoking/Using Tobacco: 30 YRS Have You Smoked in the Last Year: Yes Review of Systems Constitutional: Negative Eyes: Negative ENT: Negative Cardiovascular: Negative Respiratory: Negative Gastrointestinal: Negative Genitourinary: Negative Musculoskeletal: Negative Skin: Other Neurological: Negative Psychological: Normal All Other Systems Reviewed And Are Negative: Yes Physical Exam - Summary Physical Exam Summary: Swelling and erythema to left foot and left ankle.. Small wound on plantar surface of large toe of left foot. 4 cm x 4 cm circular wound on plantar surface of left foot proximal to the MTP joint. Wound appears clean and dry, with small amount of purulent discharge, but positive for foul odor. PMS intact distally. Triage Information Reviewed: Yes Vital Signs On Initial Exam: Initial Vitals Temp Pulse Resp BP Pulse Ox 99.5 F 112 18 142/92 96 01/03/19 19:58 01/03/19 19:58 01/03/19 19:58 01/03/19 19:58 01/03/19 19:58 Vital Signs Reviewed: Yes Appearance: Positive: Well-Appearing Skin: Positive: Warm Head/Face: Positive: Normal Head/Face Inspection Eyes: Positive: Normal Neck: Positive: Supple Respiratory/Lung Sounds: Positive: Clear to Auscultation Cardiovascular: Positive: Normal Abdomen Description: Positive: Nontender Musculoskeletal: Positive: Normal Neurological: Positive: Normal Psychiatric: Positive: Anxious, Depressed AVPU Assessment: Alert - Sahil Coma Scale Best Eye Response: 4 - Spontaneous Best Motor Response: 6 - Obeys Commands Best Verbal Response: 5 - Oriented Coma Scale Total: 15 Diagnostics - Vital Signs Vital Signs Temp Pulse Resp BP Pulse Ox 01/03/19 19:58 99.5 F 112 18 142/92 96 - Laboratory Lab Results: Lab Results 01/03/19 01/03/19 01/03/19 Range/Units 21:09 21:09 21:09 WBC 11.0 H (3.5-10.8) 10^3/uL RBC 4.51 (3.70-4.87) 10^6 /uL Hgb 12.1 (12.0-16.0) g/dL Hct 36 (33-41) % MCV 80 (80-97) fL MCH 27 (27-31) pg MCHC 34 (31-36) g/dL RDW 14 (10.5-15) % Plt Count 533 H (150-450) 10^3/uL MPV 7.9 (7.4-10.4) fL Neut % (Auto) 64.7 % Lymph % (Auto) 21.3 % [facility] % (Auto) 12.7 % Eos % (Auto) 0.5 % Baso % (Auto) 0.8 % Absolute Neuts (auto) 7.1 (1.5-7.7) 10^3/ul Absolute Lymphs (auto) 2.3 (1.0-4.8) 10^3/ul Absolute Monos (auto) 1.4 H (0-0.8) 10^3/ul Absolute Eos (auto) 0.1 (0-0.6) 10^3/ul Absolute Basos (auto) 0.1 (0-0.2) 10^3/ul Absolute Nucleated RBC 0 10^3/ul Nucleated RBC % 0 ESR Pending Sodium 136 (135-145) mmol/L Potassium 3.0 L (3.5-5.0) mmol/L Chloride 96 L (101-111) mmol/L Carbon Dioxide 28 (22-32) mmol/L Anion Gap 12 H (2-11) mmol/L BUN 8 (6-24) mg/dL Creatinine 0.78 (0.51-0.95) mg/dL Est GFR ( Amer) 96.2 (>60) Est GFR (Non-Af Amer) 79.5 (>60) BUN/Creatinine Ratio 10.3 (8-20) Glucose 78 (70-100) mg/dL Lactic Acid 0.9 (0.5-2.0) mmol/L Calcium 9.5 (8.6-10.3) mg/dL Total Bilirubin 0.30 (0.2-1.0) mg/dL AST 22 (13-39) U/L ALT 15 (7-52) U/L Alkaline Phosphatase 256 H (34-104) U/L C-Reactive Protein Pending Total Protein 7.5 (6.4-8.9) g/dL Albumin 3.9 (3.2-5.2) g/dL Globulin 3.6 (2-4) g/dL Albumin/Globulin Ratio 1.1 (1-3) TSH 0.79 (0.34-5.60) mcIU/mL Beta HCG, Quant 1.24 mIU/mL Salicylates < 2.50 (<30) mg/dL Acetaminophen < 15 mcg/mL Serum Alcohol < 10 (<10) mg/dL Result Diagrams: 01/03/19 21:09 01/03/19 21:09 Lab Statement: Any lab studies that have been ordered have been reviewed, and results considered in the medical decision making process. Lower Extremity Course/Dx - Course Course Of Treatment: Patient complains of cellulitis to left foot 8 days and thoughts of SI x 2 days subsequent to infection. She has history of depression , PTSD, states she does not feel like she can manage infection by herself. Patient has history of fasciotomy for compartment syndrome, states she has decreased sensation in her foot and must always be checking for wounds. Patient states she had 2 blisters on her foot which became wounds. Patient was seen by orthopedics Dr. Ayala 8 days ago diagnosed with cellulitis and placed on Keflex PO. Patient states infection and redness has improved significantly, but states that she has not changed dressing in 2 days and foot has started to smell. Denies trauma, fever, cough, sore throat, CP, SOB, N/V/V abdominal pain, change in urine, change in BM. Admits to 3 beers today, and marijuana use. Denies any other recreational drug use 1 year. Patient has history of substance abuse. Patient wears supportive boot due to history of fasciotomy. \. Physical exam:Swelling and erythema to left foot and left ankle.. Small wound on plantar surface of large toe of left foot. 4 cm x 4 cm circular wound on plantar surface of left foot proximal to the MTP joint. Wound appears clean and dry, with small amount of purulent discharge, but positive for foul odor. PMS intact distally. Vital signs within normal limits. WBC 11.0. Potassium 3.0. Labs otherwise unremarkable. X-ray left foot positive for a fifth metatarsal fracture. Discussed patient with orthopedics data processing consultant Dr. Frye who recommended patient be admitted, Ancef 1 g IV administered every 8 hours, and posterior splint placed. Patient was given potassium by mouth. Patient stated thoughts of SI were related to her feeling that she was unable to manage her infection and that it was getting worse, and that she feels much more stable and positive knowing that it will be taking care of. Mental health evaluation was therefore not deemed necessary. Patient admitted to [facility] [place]. - Diagnoses Provider Diagnoses: Cellulitis, Metatarsal fracture, Depression Discharge - Sign-Out/Discharge Documenting (check all that apply): Patient Departure Patient Received Moderate/Deep Sedation with Procedure: No - Discharge Plan Condition: Stable Disposition: ADMITTED TO [facility] Referrals: Jeovany Huang MD [Primary Care Provider] - - Billing Disposition and Condition Condition: STABLE Disposition: Admitted to [facility]
[2019-01-04 02:23] LABS: Urine Benzodiazepine Screen None Detected (None Detect); Urine Opiates Screen None Detected (None Detect)
[2019-01-04 02:49] LABS: Erythrocyte Sed Rate > 120 mm/Hr (0-19)
--- NOTE | 2019-01-04 03:21 | HP ---
CC: Dr. Jeovany Huang, [facility]* HISTORY AND PHYSICAL: DATE OF ADMISSION: 01/04/19 TIME OF EVALUATION: 0100 PRIMARY CARE PHYSICIAN: Jeovany Huang MD CHIEF COMPLAINT: Suicidal ideation and left foot pain. HISTORY OF PRESENT ILLNESS: This is a 48-year-old female with a past medical history of polysubstance abuse who had developed complications of her left lower extremity including compartment syndrome in September 2018, status post several fasciotomies, requiring wound VAC. The patient states she has neuropathy and footdrop subsequently as a result of these complications. She states slightly over a week ago she developed 2 blisters on the bottom of her foot that broke and immediately got infected. She saw Sasha who started her on Keflex. She believes this was started on 12/28/18. She was taking Keflex 4 times a day, it has not gotten any better. She is not having much sensation there. She states she has been subjectively warm with chills at home. No nausea or vomiting. No chest pain or shortness of breath. No abdominal discomfort. She is also feeling suicidal relating to her feelings of despair with issues with her foot and she is not on an antidepressant right now. She does not feel safe at home unless she is started on one. In the emergency room , the patient had labs and imaging. She was found to have a fifth metatarsal fracture. She was given cefazolin 1 g and potassium chloride 40 mEq and referred to the hospitalist service for further evaluation. PAST MEDICAL HISTORY: 1. Anxiety. 2. Depression. 3. PTSD. 4. GERD. 5. History of hepatitis C. 6. History of polysubstance abuse. 7. Chronic pain, on methadone. 8. Asthma. 9. History of multiple admissions for suicidal ideation. 10. History of compartment syndrome in September 2018, status post fasciotomy with subsequent debridement of her lower extremity wound requiring wound VAC. MEDICATIONS: 1. Methadone 30 mg in the morning, 30 mg in the afternoon, 10 mg at night. 2. Ativan 0.5 mg p.o. b.i.d. 3. Lyrica 75 mg daily. 4. Protonix daily. 5. Claritin 10 mg daily. 6. Singulair 10 mg daily. 7. Keflex 4 times a day. ALLERGIES: NICOTINE, OMEPRAZOLE, and TRAMADOL. FAMILY HISTORY: Reviewed and noncontributory. SOCIAL HISTORY: The patient lives alone. She ambulates with crutches and an AFO on her left lower extremity. She stays in AA, but she does drink, her last drink was 2 beers yesterday. Occasional marijuana and cocaine use. She denies any IV drug use. Her health care proxy is her parents. REVIEW OF SYSTEMS: A 14-point review of systems as mentioned in the HPI, otherwise negative. The patient denies any trauma to her foot, no falls, but she been walking awkwardly since the blisters a week ago. PHYSICAL EXAMINATION GENERAL: In no acute distress, resting comfortably. VITAL SIGNS: Temp 99.5, pulse rate 112, respiratory rate 18, oxygen saturation 96% on room air, and blood pressure 142/92. HEENT: Head normocephalic. Pupils are pin point and reactive. Conjunctivae injected. Oropharynx: Mucous membranes are moist. NECK: Supple. No lymphadenopathy. RESPIRATORY: Diminished breath sounds. No wheezing, rhonchi, or rales. CARDIAC: Tachycardia. Soft systolic murmur heard throughout. ABDOMEN: Soft, nontender, and nondistended. EXTREMITIES: The patient with left lower extremity swelling, erythema, +1 DPs on her plantar surface. She has a 4 cm circular black necrotic ulcerated lesion with surrounding purulent drainage and she has a lesion on her first great digit on the left lower extremity as well. It is edematous with streaking and erythema. NEUROLOGIC: Alert and oriented x3. No gross focal neurologic deficits. LABORATORY DATA: White count 11, hemoglobin 12.1, hematocrit 36, platelets 533. Sodium 136, potassium 3, chloride 96, bicarb 28, BUN 8, creatinine 0.76. Alk phos 256. Beta HCG is 1.24. Salicylate, acetaminophen, and alcohol levels are negative. Foot x-ray shows a fifth metatarsal mildly displaced fracture on wet read. ASSESSMENT: This is a 48-year-old female with a past medical history of polysubstance abuse with mental health disorder, had complications of her left lower extremity including compartment syndrome requiring fasciotomy who presents with a lower extremity wound. 1. Left lower extremity cellulitis with ulcerated lesion. Assessment: This is concerning for osteomyelitis and cellulitis. Plan: We will start her on vancomycin, cefepime, and Flagyl. Obtain a wound culture. Follow up with Ortho. Order wound care consult/ID consult and get MRI for further imaging to rule out osteo and a Doppler to rule out DVT. We will also check inflammatory markers. She did get blood culturesin the emergency room. 2. Fifth metatarsal fracture. Assessment: It could be related to how she was ambulating after her blisters. Follow up with Ortho. 3. Suicidal ideation. Assessment: The patient feels suicidal with all the complications related to her foot and not on an antidepressant. Plan: She will be placed on one-to-one and follow up with psychiatry in the morning. 4. Chronic Medical problems: We will check a urine drug screen. Continue her on her methadone, her Ativan, Lyrica, Singulair, and Claritin. 6. FEN: Regular diet with IV fluids. 7. DVT prophylaxis. The patient scores moderate risk. We will place her on heparin subcu t.i.d. 8. Code status: Full code. PATIENT TIME: Greater than 45 minutes spent doing the history and physical, more than half the time spent in direct patient contact. [id number] #: [id number] JAYLENE
[2019-01-04] MEDS: Methadone TAB* 10 MG PO SCH ×4 (04:46→21:47)
[2019-01-04] MEDS: Docusate CAP* 100 MG PO PRN (04:46)
[2019-01-04] MEDS: Lactated Ringers 1000 ML Bag* 1,000 ML IV SCH (04:46)
[2019-01-04] MEDS: Heparin VIAL(*) 5000 UNITS/ML VIAL (FIVE THOUSAND) SUBCUT SCH ×3 (04:47→21:48)
[2019-01-04] MEDS: metroNIDAZOLE IV 500 MG/100ML* 500 MG/100 ML BAG IVPB SCH ×3 (06:32→22:24)
[2019-01-04 06:43] LABS: ABS Basophils 0.1 10^3/ul (0-0.2); ABS Eosinophils 0.1 10^3/ul (0-0.6); ABS Lymphocytes 2.4 10^3/ul (1.0-4.8); ABS Monocytes 1.3 10^3/ul (0-0.8); ABS Neutrophils 5.4 10^3/ul (1.5-7.7); ABS Nucleated RBC 0 10^3/ul; Hematocrit 31 % (33-41); Hemoglobin 10.6 g/dL (12.0-16.0); Lymphocyte % 26.2 %; Mean Corpuscular HGB Conc 34 g/dL (31-36); Mean Corpuscular Hemoglobin 27 pg (27-31); Mean Corpuscular Volume 80 fL (80-97); Mean Platelet Volume 7.9 fL (7.4-10.4); Nucleated Red Blood Cells % 0; Platelet Count 418 10^3/uL (150-450); Red Blood Count 3.88 10^6 /uL (3.70-4.87); Red Cell Distribution Width 14 % (10.5-15); White Blood Count 9.3 10^3/uL (3.5-10.8)
[2019-01-04 07:03] LABS: BUN/Creatinine Ratio 13.5 (8-20); Calcium 8.4 mg/dL (8.6-10.3); EGFR African American 102.2 (>60); EGFR Non-African American 84.5 (>60); Potassium 3.2 mmol/L (3.5-5.0)
[2019-01-04] MEDS ORDERED: Vancomycin per Pharmacy* NOTE FOLLOW UP PRN (07:09)
[2019-01-04] MEDS ORDERED: Potassium Chlor TAB* 20 MEQ TAB.ER PO ONE (07:20)
[2019-01-04] MEDS ORDERED: Methadone TAB* 10 MG PO SCH (09:00)
[2019-01-04] MEDS ORDERED: Pantoprazole TAB * 40 MG TAB PO SCH (09:00)
[2019-01-04] MEDS: Pregabalin CAP(*) 25 MG PO SCH ×2 (12:06→21:46)
--- NOTE | 2019-01-04 12:37 | PN ---
Subjective Date of Service: 01/04/19 Interval History: Pt feels "down and depressed", stated that it's difficult to live alone and try to deal with leg wound. denies pain Objective Active Medications: Acetaminophen (Tylenol Tab*) 650 mg PO Q4H PRN PRN Reason: FEVER/PAIN Al Hydrox/Mg Hydrox/Simethicone (Maalox Plus*) 30 ml PO Q6H PRN PRN Reason: INDIGESTION Docusate Sodium (Colace Cap*) 100 mg PO BID PRN PRN Reason: CONSTIPATION Last Admin: 01/04/19 04:46 Dose: 100 mg Heparin Sodium (Porcine) (Heparin Vial(*)) 5,000 units SUBCUT Q8HR [facility] Last Admin: 01/04/19 04:47 Dose: 5,000 units Vancomycin HCl 1,250 mg/ (Sodium Chloride) 250 mls @ 166.667 mls/hr IVPB Q12H [facility]; Protocol Cefepime HCl (Maxipime 2 Gm In Dextrose Duplex (*)) 2 gm in 50 mls @ 100 mls/ hr IV Q12H [facility] Metronidazole/Sodium Chloride (Flagyl 500 Mg Ivpb*) 500 mg in 100 mls @ 100 mls /hr IVPB Q12H [facility] Last Admin: 01/04/19 06:32 Dose: 100 mls/hr Lactated Ringer's (Lactated Ringers 1000 Ml Bag*) 1,000 mls @ 125 mls/hr IV PER RATE [facility] Last Admin: 01/04/19 04:46 Dose: 125 mls/hr Lorazepam (Ativan Tab(*)) 0.5 mg PO BID PRN PRN Reason: ANXIETY Methadone HCl (Dolophine Tab*) 10 mg PO BEDTIME [facility] Last Admin: 01/04/19 04:46 Dose: 10 mg Methadone HCl (Dolophine Tab*) 30 mg PO 0900,1400 [facility] Last Admin: 01/04/19 12:06 Dose: 30 mg Montelukast Sodium (Singulair Tab*) 10 mg PO BEDTIME [facility] Ondansetron HCl (Zofran Inj*) 4 mg IV Q4H PRN PRN Reason: NAUSEA/VOMITING Pantoprazole Sodium (Protonix Tab*) 40 mg PO DAILY [facility] Last Admin: 01/04/19 12:07 Dose: 40 mg Pharmacy Consult (Vancomycin Per Pharmacy*) 1 note FOLLOW UP . PRN PRN Reason: PER PROTOCOL Pharmacy Profile Note (Vancomycin Trough Check) 1 note FOLLOW UP 1530 ONE Stop: 01/05/19 15:31 Pregabalin (Lyrica Cap(*)) 75 mg PO BID [facility] Last Admin: 01/04/19 12:06 Dose: 75 mg Senna (Senokot Tab*) 1 tab PO BID PRN PRN Reason: CONSTIPATION Vital Signs - 8 hr 01/04/19 01/04/19 01/04/19 04:46 05:22 06:50 Temperature 97.3 F Pulse Rate 71 Respiratory 16 16 16 Rate Blood Pressure 101/61 (mmHg) O2 Sat by Pulse 94 Oximetry 01/04/19 01/04/19 07:59 12:06 Temperature 98.6 F Pulse Rate 64 Respiratory 16 18 Rate Blood Pressure 94/54 (mmHg) O2 Sat by Pulse 97 Oximetry Oxygen Devices in Use Now: None Appearance: 48 yo f in nAD, AAOx3 Eyes: No Scleral Icterus, PERRLA Ears/Nose/Mouth/Throat: NL Teeth, Lips, Gums, Mucous Membranes Moist Neck: NL Appearance and Movements; NL JVP, Trachea Midline Respiratory: Symmetrical Chest Expansion and Respiratory Effort, Clear to Auscultation Cardiovascular: NL Sounds; No Murmurs; No JVD, RRR Abdominal: NL Sounds; No Tenderness; No Distention Lymphatic: No Cervical Adenopathy Extremities: No Clubbing, Cyanosis, - - left leg in soft splint not uncovered, toes perfused well Skin: - - dressings just applied by RN to left foot, not removed, pt planned for OR today Neurological: Alert and Oriented x 3, NL Muscle Strength and Tone Result Diagrams: 01/04/19 06:24 01/04/19 06:24 Additional Lab and Data: Lab Results 01/03/19 01/03/19 01/03/19 Range/Units 21:09 21:09 21:09 WBC 11.0 H (3.5-10.8) 10^3/uL RBC 4.51 (3.70-4.87) 10^6 /uL Hgb 12.1 (12.0-16.0) g/dL Hct 36 (33-41) % MCV 80 (80-97) fL MCH 27 (27-31) pg MCHC 34 (31-36) g/dL RDW 14 (10.5-15) % Plt Count 533 H (150-450) 10^3/uL MPV 7.9 (7.4-10.4) fL Neut % (Auto) 64.7 % Lymph % (Auto) 21.3 % [place] % (Auto) 12.7 % Eos % (Auto) 0.5 % Baso % (Auto) 0.8 % Absolute Neuts (auto) 7.1 (1.5-7.7) 10^3/ul Absolute Lymphs (auto) 2.3 (1.0-4.8) 10^3/ul Absolute Monos (auto) 1.4 H (0-0.8) 10^3/ul Absolute Eos (auto) 0.1 (0-0.6) 10^3/ul Absolute Basos (auto) 0.1 (0-0.2) 10^3/ul Absolute Nucleated RBC 0 10^3/ul Nucleated RBC % 0 ESR Pending Sodium 136 (135-145) mmol/L Potassium 3.0 L (3.5-5.0) mmol/L Chloride 96 L (101-111) mmol/L Carbon Dioxide 28 (22-32) mmol/L Anion Gap 12 H (2-11) mmol/L BUN 8 (6-24) mg/dL Creatinine 0.78 (0.51-0.95) mg/dL Est GFR ( Amer) 96.2 (>60) Est GFR (Non-Af Amer) 79.5 (>60) BUN/Creatinine Ratio 10.3 (8-20) Glucose 78 (70-100) mg/dL Lactic Acid 0.9 (0.5-2.0) mmol/L Calcium 9.5 (8.6-10.3) mg/dL Total Bilirubin 0.30 (0.2-1.0) mg/dL AST 22 (13-39) U/L ALT 15 (7-52) U/L Alkaline Phosphatase 256 H (34-104) U/L C-Reactive Protein Pending Total Protein 7.5 (6.4-8.9) g/dL Albumin 3.9 (3.2-5.2) g/dL Globulin 3.6 (2-4) g/dL Albumin/Globulin Ratio 1.1 (1-3) TSH 0.79 (0.34-5.60) mcIU/mL Beta HCG, Quant 1.24 mIU/mL Salicylates < 2.50 (<30) mg/dL Acetaminophen < 15 mcg/mL Serum Alcohol < 10 (<10) mg/dL Microbiology and Other Data: Microbiology 01/04/19 00:37 Gram Stain - Final Foot Left 01/04/19 01:24 Skin and Soft Tissue MRSA/MSSA (PCR - Final Foot Left Mrsa Negative S.aureus Positive Assess/Plan/Problems-Billing Assessment: 47 yo F with PMH polysubstance abuse ,hepatitis C , anxiety/ depression, presented with left leg compartment syndrome after syncope and collapse on 09/18 potential overdose, rhabdo, s/p 4 compartment fasciotomies, and multiple I&Ds now living alone presented with SI to ED and noted to have L foot wound - Patient Problems (1) Anxiety and depression Comment: With SI psychiatry consult pending For nowon 1:1 obs On Effexor and ativan (2) Osteomyelitis Comment: of left foot , to OR today cont Cefepime, Vanc ,Flagyl (3) Chronic, continuous use of opioids Comment: cont home methadone (4) Polysubstance (including opioids) dependence w/o physiol dependence Comment: UDS positive for cocaine, amphetamines, cannabis again (5) DVT prophylaxis Comment: HSQ Status and Disposition: inpatient
[2019-01-04] MEDS ORDERED: Cefepime 2 GM in Dextrose(*) 2 GM/50 ML BAG IV SCH (14:00)
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
[2019-01-04] MEDS ORDERED: Midazolam* 1 MG/ML 5 ML VIAL (5 MG) ONE (16:14)
[2019-01-04] MEDS ORDERED: fentaNYL* 50 MCG/ML 2 ML VIAL (100 MCG VIAL) ONE (16:34)
--- NOTE | 2019-01-04 17:06 | OP ---
Operative Report - Blank - Operative Report Date of Operation: 01/04/19 Note: PATIENT: Peyton Trujillo DATE OF : 1970 DATE OF SURGERY: 01/04/2019 SURGEON: Cj Appiah MD STONEMASON HELPER: none ANESTHESIOLOGIST: Dr. Gareth Schreiber PREOPERATIVE DIAGNOSIS: Left foot plantar ulcer and infection POSTOPERATIVE DIAGNOSIS: Left foot plantar ulcer and infection OPERATION: Left foot irrigation and debridement and placement of a wound vac ANESTHESIA: MAC IMPLANTS: none TOURNIQUET TIME: Less than one hour with an ankle Esmarch tourniquet. SPECIMENS: none ESTIMATED BLOOD LOSS: minimal COMPLICATIONS: none STATUS: Stable from the operating room to the recovery room and then back to the hospital floor. INDICATIONS FOR PROCEDURE: Peyton has had a prolonged course with this left lower extremity. She developed compartment syndrome with extensive muscle . She has no sensation in her foot. She has developed to plantar left foot ulcers. She has developed an infection and the lateral ulcer has worsened. Both operative and non-operative treatment alternatives were reviewed. Further, the nature and risks of surgery were reviewed in careful detail. Our discussions regarding the risks of surgery included, but were not limited to, persistent or worsening infection, wound problems, persistent symptoms, blood clot, need for further surgery, failure of the surgery, need for amputation. DESCRIPTION OF PROCEDURE: The patient was seen in the preoperative holding unit and informed written consent was obtained. The appropriate extremity was marked. The patient was then brought to the operating room and carefully positioned on the operating room table. Anesthesia was induced. All bony prominences were padded with great care. A well-padded thigh tourniquet was placed. A chlorhexidine based pre- scrub was performed followed by a chloraprep prep and drape in standard sterile fashion. A surgical safety pause was then conducted in which we confirmed the appropriate patient, extremity, planned procedure, availability of equipment, indication and administration of antibiotics, and DVT prophylaxis in the form of a compression boot on the non-surgical extremity. I placed an ankle Esmarch tourniquet. I then used a 15 blade scalpel to excise the necrotic ulcer, which was 5 cm in diameter. There is purulent material underneath the ulcer, from which culture swabs were taken. I then sharply debrided of necrotic and infected-appearing tissue with a 15 blade scalpel from the skin, subcutaneous, fascial, periosteal layers down to the fourth metatarsal bone. I then debrided necrotic tissue in the deep third and fourth web spaces. I then copiously irrigated the wound with normal saline. I released the ankle Esmarch tourniquet and there was some bleeding at the edges of the debridement, but not as brisk as I would like. A vac was then placed in the wound and held good suction. The patient was then awakened from anesthesia and transferred to the recovery room in stable condition. There were no complications. All needle and sponge counts were correct at the end of the case. POSTOPERATIVE PLAN: VAC at 125 mmHg. Antibiotics as guided by infectious disease. Return to the OR Tuesday for a repeat I&D and wound VAC change. She will need vascular studies.
[2019-01-04] MEDS ORDERED: oxyCODONE/Acetamin 5/325 MG* TAB PO PRN (18:00)
[2019-01-04] MEDS: Vancomycin(*) 1,250 MG in NS 0.9% 250 ML* 250 ML IVPB SCH (19:02)
[2019-01-04] MEDS: FLUoxetine CAP* 10 MG PO SCH (19:45)
[2019-01-04] MEDS: traZODone TAB* 100 MG PO SCH (21:42)
[2019-01-04] MEDS: Cefepime 2 GM in Dextrose(*) 2 GM/50 ML BAG IV SCH (21:45)
[2019-01-04] MEDS: Montelukast Sodium TAB* 10 MG PO SCH (21:47)
[2019-01-05] MEDS: Lactated Ringers 1000 ML Bag* 1,000 ML IV SCH (01:04)
[2019-01-05] MEDS: Vancomycin(*) 1,250 MG in NS 0.9% 250 ML* 250 ML IVPB SCH (03:29)
[2019-01-05] MEDS: Heparin VIAL(*) 5000 UNITS/ML VIAL (FIVE THOUSAND) SUBCUT SCH ×3 (05:41→20:50)
[2019-01-05 06:30] LABS: Hematocrit 33 % (33-41); Hemoglobin 10.1 g/dL (12.0-16.0); Mean Corpuscular HGB Conc 31 g/dL (31-36); Mean Corpuscular Hemoglobin 27 pg (27-31); Mean Corpuscular Volume 88 fL (80-97); Platelet Count 344 10^3/uL (150-450); Red Blood Count 3.72 10^6 /uL (3.70-4.87); Red Cell Distribution Width 15 % (10.5-15); White Blood Count 5.9 10^3/uL (3.5-10.8)
[2019-01-05 06:45] LABS: BUN/Creatinine Ratio 13.8 (8-20); Calcium 8.2 mg/dL (8.6-10.3); EGFR African American 118.7 (>60); EGFR Non-African American 98.1 (>60); Potassium 3.7 mmol/L (3.5-5.0)
[2019-01-05] MEDS: Pregabalin CAP(*) 25 MG PO SCH ×2 (07:49→20:48)
[2019-01-05] MEDS: Cefepime 2 GM in Dextrose(*) 2 GM/50 ML BAG IV SCH ×2 (07:49→19:35)
[2019-01-05] MEDS: FLUoxetine CAP* 10 MG PO SCH (07:49)
[2019-01-05] MEDS: Methadone TAB* 10 MG PO SCH ×3 (07:51→20:49)
[2019-01-05] MEDS: Cetirizine* 10 MG TAB PO SCH (07:52)
[2019-01-05] MEDS: Pantoprazole TAB * 40 MG TAB PO SCH (07:52)
[2019-01-05] MEDS: Fluticasone NASAL SPRAY 50MCG* 16 gm SPRAY BTL BOTH NARES SCH (07:54)
[2019-01-05] MEDS ORDERED: Venlafaxine EXT RELEASE CAP* 75 MG PO SCH (09:00)
--- NOTE | 2019-01-05 10:02 | PN ---
Subjective Date of Service: 01/05/19 Interval History: Pt feels well. Still depressed (still on 1:1) and would like to be hospitalized at our [facility] once her foot wound issues are stable Objective Active Medications: Acetaminophen (Tylenol Tab*) 650 mg PO Q4H PRN PRN Reason: FEVER/PAIN Al Hydrox/Mg Hydrox/Simethicone (Maalox Plus*) 30 ml PO Q6H PRN PRN Reason: INDIGESTION Cetirizine HCl (Zyrtec*) 10 mg PO DAILY [facility] Last Admin: 01/05/19 07:52 Dose: 10 mg Docusate Sodium (Colace Cap*) 100 mg PO BID PRN PRN Reason: CONSTIPATION Last Admin: 01/04/19 04:46 Dose: 100 mg Fluoxetine HCl (Prozac Cap*) 30 mg PO DAILY [facility] Last Admin: 01/05/19 07:49 Dose: 30 mg Fluticasone Propionate (Flonase Nasal [place] 50mcg*) 2 spray BOTH NARES DAILY [facility] Last Admin: 01/05/19 07:54 Dose: 2 spray Heparin Sodium (Porcine) (Heparin Vial(*)) 5,000 units SUBCUT Q8HR [facility] Last Admin: 01/05/19 05:41 Dose: 5,000 units Lactated Ringer's (Lactated Ringers 1000 Ml Bag*) 1,000 mls @ 125 mls/hr IV PER RATE [facility] Last Admin: 01/05/19 01:04 Dose: 125 mls/hr Cefepime HCl (Maxipime 2 Gm In Dextrose Duplex (*)) 2 gm in 50 mls @ 100 mls/ hr IV 0730,1930 [facility] Last Admin: 01/05/19 07:49 Dose: 100 mls/hr Metronidazole/Sodium Chloride (Flagyl 500 Mg Ivpb*) 500 mg in 100 mls @ 100 mls /hr IVPB 0830,2030 [facility] Last Admin: 01/04/19 22:24 Dose: 100 mls/hr Lorazepam (Ativan Tab(*)) 0.5 mg PO BID PRN PRN Reason: ANXIETY Methadone HCl (Dolophine Tab*) 10 mg PO BEDTIME [facility] Last Admin: 01/04/19 21:47 Dose: 10 mg Methadone HCl (Dolophine Tab*) 30 mg PO 0900,1400 [facility] Last Admin: 01/05/19 07:51 Dose: 30 mg Montelukast Sodium (Singulair Tab*) 10 mg PO BEDTIME [facility] Last Admin: 01/04/19 21:47 Dose: 10 mg Ondansetron HCl (Zofran Inj*) 4 mg IV Q4H PRN PRN Reason: NAUSEA/VOMITING Oxycodone/Acetaminophen (Percocet 5/325 Tab*) 1 tab PO Q3H PRN PRN Reason: PAIN - MILD TO MODERATE Oxycodone/Acetaminophen (Percocet 5/325 Tab*) 2 tab PO Q3H PRN PRN Reason: PAIN - MODERATE TO SEVERE Pantoprazole Sodium (Protonix Tab*) 40 mg PO DAILY [facility] Last Admin: 01/05/19 07:52 Dose: 40 mg Pharmacy Profile Note (Vancomycin Trough Check) 1 note FOLLOW UP 153 ONE Stop: 01/05/19 15:31 Pregabalin (Lyrica Cap(*)) 75 mg PO BID [facility] Last Admin: 01/05/19 07:49 Dose: 75 mg Senna (Senokot Tab*) 1 tab PO BID PRN PRN Reason: CONSTIPATION Trazodone HCl (Desyrel Tab*) 300 mg PO BEDTIME [facility] Last Admin: 01/04/19 21:42 Dose: Not Given Vital Signs - 8 hr 01/05/19 01/05/19 01/05/19 07:30 07:49 07:51 Temperature 98.0 F Pulse Rate 70 Respiratory 16 14 14 Rate Blood Pressure 91/61 (mmHg) O2 Sat by Pulse 100 Oximetry Oxygen Devices in Use Now: None Appearance: 48 yo F in NAD, AAOx3 Eyes: No Scleral Icterus, PERRLA Ears/Nose/Mouth/Throat: NL Teeth, Lips, Gums, Mucous Membranes Moist Neck: NL Appearance and Movements; NL JVP, Trachea Midline Respiratory: Symmetrical Chest Expansion and Respiratory Effort, Clear to Auscultation Cardiovascular: NL Sounds; No Murmurs; No JVD, RRR Abdominal: NL Sounds; No Tenderness; No Distention Lymphatic: No Cervical Adenopathy Extremities: No Clubbing, Cyanosis, - - left ankle edema, L foot drop-chronic, bottom of foot with vac dressing applied, poor pedal pulses on left foot Skin: No Nodules or Sclerosis Neurological: Alert and Oriented x 3, NL Muscle Strength and Tone Result Diagrams: 01/05/19 06:10 04/26/19 06:10 Additional Lab and Data: Lab Results 01/03/19 01/03/19 01/03/19 Range/Units 21:09 21:09 21:09 WBC 11.0 H (3.5-10.8) 10^3/uL RBC 4.51 (3.70-4.87) 10^6 /uL Hgb 12.1 (12.0-16.0) g/dL Hct 36 (33-41) % MCV 80 (80-97) fL MCH 27 (27-31) pg MCHC 34 (31-36) g/dL RDW 14 (10.5-15) % Plt Count 533 H (150-450) 10^3/uL MPV 7.9 (7.4-10.4) fL Neut % (Auto) 64.7 % Lymph % (Auto) 21.3 % [place] % (Auto) 12.7 % Eos % (Auto) 0.5 % Baso % (Auto) 0.8 % Absolute Neuts (auto) 7.1 (1.5-7.7) 10^3/ul Absolute Lymphs (auto) 2.3 (1.0-4.8) 10^3/ul Absolute Monos (auto) 1.4 H (0-0.8) 10^3/ul Absolute Eos (auto) 0.1 (0-0.6) 10^3/ul Absolute Basos (auto) 0.1 (0-0.2) 10^3/ul Absolute Nucleated RBC 0 10^3/ul Nucleated RBC % 0 ESR Pending Sodium 136 (135-145) mmol/L Potassium 3.0 L (3.5-5.0) mmol/L Chloride 96 L (101-111) mmol/L Carbon Dioxide 28 (22-32) mmol/L Anion Gap 12 H (2-11) mmol/L BUN 8 (6-24) mg/dL Creatinine 0.78 (0.51-0.95) mg/dL Est GFR ( Amer) 96.2 (>60) Est GFR (Non-Af Amer) 79.5 (>60) BUN/Creatinine Ratio 10.3 (8-20) Glucose 78 (70-100) mg/dL Lactic Acid 0.9 (0.5-2.0) mmol/L Calcium 9.5 (8.6-10.3) mg/dL Total Bilirubin 0.30 (0.2-1.0) mg/dL AST 22 (13-39) U/L ALT 15 (7-52) U/L Alkaline Phosphatase 256 H (34-104) U/L C-Reactive Protein Pending Total Protein 7.5 (6.4-8.9) g/dL Albumin 3.9 (3.2-5.2) g/dL Globulin 3.6 (2-4) g/dL Albumin/Globulin Ratio 1.1 (1-3) TSH 0.79 (0.34-5.60) mcIU/mL Beta HCG, Quant 1.24 mIU/mL Salicylates < 2.50 (<30) mg/dL Acetaminophen < 15 mcg/mL Serum Alcohol < 10 (<10) mg/dL Microbiology and Other Data: Microbiology 01/04/19 00:37 Gram Stain - Final Foot Left 01/04/19 01:24 Skin and Soft Tissue MRSA/MSSA (PCR - Final Foot Left Mrsa Negative S.aureus Positive Assess/Plan/Problems-Billing Assessment: 47 yo F with H polysubstance abuse ,hepatitis C , anxiety/ depression, presented with left leg compartment syndrome after syncope and collapse on 09/18 potential overdose, rhabdo, s/p 4 compartment fasciotomies, and multiple I&Ds now living alone presented with SI to ED and noted to have L foot wound - Patient Problems (1) Anxiety and depression Comment: With SI Appreciate psychiatry consult-cont Prozac, Trazadone cont 1:1 obs (2) Osteomyelitis Comment: of left foot , s/p debridement in OR on 01/04/19-now VAC in place cont Cefepime,Flagyl. MRSA wound cx neg-d/c Vanc (3) Chronic, continuous use of opioids Comment: cont home methadone (4) Polysubstance (including opioids) dependence w/o physiol dependence Comment: UDS positive for cocaine, amphetamines, cannabis again (5) DVT prophylaxis Comment: HSQ Status and Disposition: inpatient
[2019-01-05] MEDS: metroNIDAZOLE IV 500 MG/100ML* 500 MG/100 ML BAG IVPB SCH ×2 (11:24→20:21)
--- NOTE | 2019-01-05 13:03 | PN ---
Progress Note - Progress Note Date of Service: 01/05/19 SOAP: Subjective: []Patient is seen at bedside. Has a sitter for suicide precautions. Upon entering room sleeping soundly but then aroused to voice. She is somewhat groggy. Denies significant leg or foot pain. Denies dizziness. Objective: [] Vital Signs Temp 98.0 F 01/05/19 07:30 Pulse 70 01/05/19 07:30 Resp 14 01/05/19 07:51 BP 90/52 01/05/19 11:35 Pulse Ox 100 01/05/19 07:30 Intake & Output 01/04/19 01/05/19 01/05/19 18:59 06:59 18:59 Intake Total 850 2250 240 Balance 850 2250 240 Weight 142 lb 10.225 oz Intake: IV Fluids 850 1260 LR 850 1230 NS (0.9%) 30 IVPB 590 ABX - CEFEPIME 50 ABX - FLAGYL 100 ABX - VANCOMYCIN 440 Oral 0 400 240 Other: Estimated Void Medium # Bowel Movements 0 # Voids 2 1 2 Laboratory Results - last 24 hr 01/05/19 01/05/19 06:10 06:10 WBC 5.9 RBC 3.72 Hgb 10.1 L Hct 33 MCV 88 MCH 27 MCHC 31 RDW 15 Plt Count 344 MPV 8.0 Sodium 140 Potassium 3.7 Chloride 110 Carbon Dioxide 26 Anion Gap 4 BUN 9 Creatinine 0.65 Est GFR ( Amer) 118.7 Est GFR (Non-Af Amer) 98.1 BUN/Creatinine Ratio 13.8 Glucose 129 H Calcium 8.2 L foot edematous, wound vac on, Vac alarming no active dorsiflexion foot, lacks sensation dorsal/ plantar foot Assessment: []cellulitis/ ulcer left foot s/p operative debridement POD #1 Plan: []OLE's done this am Reseal wound vac with tegaderm NWB LLE Return to OR Tuesday with Dr. Wen for repeat I&D
[2019-01-05] MEDS ORDERED: Vancomycin Trough Check NOTE FOLLOW UP ONE (15:30)
--- NOTE | 2019-01-05 16:15 | PN ---
Subjective - Subjective Date of Service: 01/05/19 Service Type: [id number] Hosp care 15 min low complexity Subjective: Yuki is seen as a consult in coverage for Dr. Lee. Yuki is found eating two cheese burgers and some indonesian fries. She is eating quite hungrily, but is gracious when I interrupt her. She states that while she feels fine today, she continues to plan on coming down to the [facility] because she anticipates that she will decompensate when she goes home, as has happened before. Yuki is quite irritable and states she resents having providers tell her how she feels. As I walk away, I hear her complain of this again to the 1:1 in her room. She states she is doing well in the hospital because she is being taken care of. She believes the going home and being alone and having to get around on her foot will bring on suicidal thoughts. Objective - General Observations Appearance: Unkempt Appears Stated Age: No - older than stated age Posture: Tense Eye Contact: Avoidant Behavior/Activity: Accelerated, Agitated - Interaction Observations Attitude Towards Examiner: Cooperative, Demanding, Manipulative, Mistrustful Stated Mood: Dysphoric Affect: Full Speech Pattern/Tone: Clear Thought Process: Coherent Perception: WNL Thought Content: WNL Hallucination Type: None Delusion Type: None - Cognitive Function Orientation: A&O x 4 Level of Consciousness: Awake, Alert, Appropriate Cognition: WNL Estimated Intelligence: Normal Insight: Mostly Blames Others for Problems Judgment Within Normal Limits: Yes - Medication Compliance Cooperative with Inpatient Medication Regimen: Yes Plan - Plan Treatment Plan: Name: EDD LOVING Birthdate: 1970 [id number] Medications: Current Medications Acetaminophen (Tylenol Tab*) 650 mg PO Q4H PRN PRN Reason: FEVER/PAIN Al Hydrox/Mg Hydrox/Simethicone (Maalox Plus*) 30 ml PO Q6H PRN PRN Reason: INDIGESTION Cetirizine HCl (Zyrtec*) 10 mg PO DAILY [facility] Last Admin: 01/05/19 07:52 Dose: 10 mg Docusate Sodium (Colace Cap*) 100 mg PO BID PRN PRN Reason: CONSTIPATION Last Admin: 01/04/19 04:46 Dose: 100 mg Fluoxetine HCl (Prozac Cap*) 30 mg PO DAILY [facility] Last Admin: 01/05/19 07:49 Dose: 30 mg Fluticasone Propionate (Flonase Nasal [place] 50mcg*) 2 spray BOTH NARES DAILY [facility] Last Admin: 01/05/19 07:54 Dose: 2 spray Heparin Sodium (Porcine) (Heparin Vial(*)) 5,000 units SUBCUT Q8HR [facility] Last Admin: 01/05/19 14:31 Dose: 5,000 units Lactated Ringer's (Lactated Ringers 1000 Ml Bag*) 1,000 mls @ 125 mls/hr IV PER RATE [facility] Last Admin: 01/05/19 01:04 Dose: 125 mls/hr Cefepime HCl (Maxipime 2 Gm In Dextrose Duplex (*)) 2 gm in 50 mls @ 100 mls/ hr IV 0730,0 [facility] Last Admin: 01/05/19 07:49 Dose: 100 mls/hr Metronidazole/Sodium Chloride (Flagyl 500 Mg Ivpb*) 500 mg in 100 mls @ 100 mls /hr IVPB 0830,2029 [facility] Last Admin: 01/05/19 11:24 Dose: 100 mls/hr Lorazepam (Ativan Tab(*)) 0.5 mg PO BID PRN PRN Reason: ANXIETY Methadone HCl (Dolophine Tab*) 10 mg PO BEDTIME [facility] Last Admin: 01/04/19 21:47 Dose: 10 mg Methadone HCl (Dolophine Tab*) 30 mg PO 0900,1400 [facility] Last Admin: 01/05/19 14:30 Dose: 30 mg Montelukast Sodium (Singulair Tab*) 10 mg PO BEDTIME [facility] Last Admin: 01/04/19 21:47 Dose: 10 mg Ondansetron HCl (Zofran Inj*) 4 mg IV Q4H PRN PRN Reason: NAUSEA/VOMITING Oxycodone/Acetaminophen (Percocet 5/325 Tab*) 1 tab PO Q3H PRN PRN Reason: PAIN - MILD TO MODERATE Oxycodone/Acetaminophen (Percocet 5/325 Tab*) 2 tab PO Q3H PRN PRN Reason: PAIN - MODERATE TO SEVERE Pantoprazole Sodium (Protonix Tab*) 40 mg PO DAILY [facility] Last Admin: 01/05/19 07:52 Dose: 40 mg Pregabalin (Lyrica Cap(*)) 75 mg PO BID [facility] Last Admin: 01/05/19 07:49 Dose: 75 mg Senna (Senokot Tab*) 1 tab PO BID PRN PRN Reason: CONSTIPATION Trazodone HCl (Desyrel Tab*) 300 mg PO BEDTIME [facility] Last Admin: 01/04/19 21:42 Dose: Not Given
[2019-01-05] MEDS: Montelukast Sodium TAB* 10 MG PO SCH (20:49)
[2019-01-05] MEDS: Docusate CAP* 100 MG PO PRN (20:49)
[2019-01-05] MEDS: LORazepam TAB(*) 0.5 MG PO PRN (20:55)
[2019-01-05] MEDS: traZODone TAB* 100 MG PO SCH (22:47)
[2019-01-06] MEDS: Lactated Ringers 1000 ML Bag* 1,000 ML IV SCH ×2 (04:23→15:10)
[2019-01-06] MEDS: Heparin VIAL(*) 5000 UNITS/ML VIAL (FIVE THOUSAND) SUBCUT SCH ×3 (06:01→20:52)
[2019-01-06 08:02] LABS: ABS Basophils 0.1 10^3/ul (0-0.2); ABS Eosinophils 0.1 10^3/ul (0-0.6); ABS Lymphocytes 2.5 10^3/ul (1.0-4.8); ABS Monocytes 0.7 10^3/ul (0-0.8); ABS Neutrophils 1.6 10^3/ul (1.5-7.7); ABS Nucleated RBC 0 10^3/ul; Eosinophil % 1.8 %; Hematocrit 30 % (33-41); Hemoglobin 9.9 g/dL (12.0-16.0); Mean Corpuscular HGB Conc 33 g/dL (31-36); Mean Corpuscular Hemoglobin 27 pg (27-31); Mean Corpuscular Volume 81 fL (80-97); Mean Platelet Volume 8.3 fL (7.4-10.4); Nucleated Red Blood Cells % 0; Platelet Count 363 10^3/uL (150-450); Red Blood Count 3.65 10^6 /uL (3.70-4.87); Red Cell Distribution Width 14 % (10.5-15); White Blood Count 5.1 10^3/uL (3.5-10.8)
[2019-01-06] MEDS: Cefepime 2 GM in Dextrose(*) 2 GM/50 ML BAG IV SCH ×2 (08:02→20:46)
[2019-01-06] MEDS: Fluticasone NASAL SPRAY 50MCG* 16 gm SPRAY BTL BOTH NARES SCH (08:02)
[2019-01-06] MEDS: FLUoxetine CAP* 10 MG PO SCH (08:03)
[2019-01-06] MEDS: Methadone TAB* 10 MG PO SCH ×3 (08:03→20:50)
[2019-01-06] MEDS: Pregabalin CAP(*) 25 MG PO SCH ×2 (08:03→20:52)
[2019-01-06] MEDS: Cetirizine* 10 MG TAB PO SCH (08:04)
[2019-01-06] MEDS: Pantoprazole TAB * 40 MG TAB PO SCH (08:04)
[2019-01-06 08:19] LABS: BUN/Creatinine Ratio 14.1 (8-20); Calcium 8.4 mg/dL (8.6-10.3); EGFR African American 120.9 (>60); EGFR Non-African American 99.9 (>60); Potassium 3.8 mmol/L (3.5-5.0)
[2019-01-06] MEDS: metroNIDAZOLE IV 500 MG/100ML* 500 MG/100 ML BAG IVPB SCH ×2 (09:01→21:33)
[2019-01-06] MEDS: Senna TAB PO PRN (11:17)
[2019-01-06] MEDS: Docusate CAP* 100 MG PO PRN (11:17)
--- NOTE | 2019-01-06 13:47 | PN ---
Subjective Date of Service: 01/06/19 Interval History: Pt feels well. Hypotensive when lying down , but when sitting up and interactive BP improves. Denies dizzies or lightheadedness Objective Active Medications: Acetaminophen (Tylenol Tab*) 650 mg PO Q4H PRN PRN Reason: FEVER/PAIN Al Hydrox/Mg Hydrox/Simethicone (Maalox Plus*) 30 ml PO Q6H PRN PRN Reason: INDIGESTION Cetirizine HCl (Zyrtec*) 10 mg PO DAILY [facility] Last Admin: 01/06/19 08:04 Dose: 10 mg Docusate Sodium (Colace Cap*) 100 mg PO BID PRN PRN Reason: CONSTIPATION Last Admin: 01/06/19 11:17 Dose: 100 mg Fluoxetine HCl (Prozac Cap*) 30 mg PO DAILY [facility] Last Admin: 01/06/19 08:03 Dose: 30 mg Fluticasone Propionate (Flonase Nasal [place] 50mcg*) 2 spray BOTH NARES DAILY [facility] Last Admin: 01/06/19 08:02 Dose: 2 spray Heparin Sodium (Porcine) (Heparin Vial(*)) 5,000 units SUBCUT Q8HR [facility] Last Admin: 01/06/19 06:01 Dose: 5,000 units Lactated Ringer's (Lactated Ringers 1000 Ml Bag*) 1,000 mls @ 125 mls/hr IV PER RATE [facility] Last Admin: 01/06/19 04:23 Dose: 125 mls/hr Cefepime HCl (Maxipime 2 Gm In Dextrose Duplex (*)) 2 gm in 50 mls @ 100 mls/ hr IV 0730,1930 [facility] Last Admin: 01/06/19 08:02 Dose: 100 mls/hr Metronidazole/Sodium Chloride (Flagyl 500 Mg Ivpb*) 500 mg in 100 mls @ 100 mls /hr IVPB 0830,2030 [facility] Last Admin: 01/06/19 09:01 Dose: 100 mls/hr Lorazepam (Ativan Tab(*)) 0.5 mg PO BID PRN PRN Reason: ANXIETY Last Admin: 01/05/19 20:55 Dose: 0.5 mg Methadone HCl (Dolophine Tab*) 10 mg PO BEDTIME [facility] Last Admin: 01/05/19 20:49 Dose: 10 mg Methadone HCl (Dolophine Tab*) 20 mg PO 0900,1400 [facility] Montelukast Sodium (Singulair Tab*) 10 mg PO BEDTIME [facility] Last Admin: 01/05/19 20:49 Dose: 10 mg Ondansetron HCl (Zofran Inj*) 4 mg IV Q4H PRN PRN Reason: NAUSEA/VOMITING Oxycodone/Acetaminophen (Percocet 5/325 Tab*) 1 tab PO Q3H PRN PRN Reason: PAIN - MILD TO MODERATE Pantoprazole Sodium (Protonix Tab*) 40 mg PO DAILY [facility] Last Admin: 01/06/19 08:04 Dose: 40 mg Pregabalin (Lyrica Cap(*)) 75 mg PO BID [facility] Last Admin: 01/06/19 08:03 Dose: 75 mg Senna (Senokot Tab*) 1 tab PO BID PRN PRN Reason: CONSTIPATION Last Admin: 01/06/19 11:17 Dose: 1 tab Trazodone HCl (Desyrel Tab*) 300 mg PO BEDTIME [facility] Last Admin: 01/05/19 22:47 Dose: 300 mg Vital Signs - 8 hr 01/06/19 01/06/19 01/06/19 07:15 07:22 08:00 Temperature 98.5 F 98.5 F Pulse Rate 58 58 Respiratory 16 16 14 Rate Blood Pressure 83/44 83/44 (mmHg) O2 Sat by Pulse 92 92 Oximetry 01/06/19 01/06/19 01/06/19 08:03 08:14 10:57 Temperature Pulse Rate Respiratory 14 12 Rate Blood Pressure 82/50 (mmHg) O2 Sat by Pulse Oximetry 01/06/19 11:07 Temperature Pulse Rate Respiratory Rate Blood Pressure 96/58 (mmHg) O2 Sat by Pulse Oximetry Oxygen Devices in Use Now: None Appearance: 48 yo F in NAD, aAOx3 Eyes: No Scleral Icterus, PERRLA Ears/Nose/Mouth/Throat: NL Teeth, Lips, Gums, Mucous Membranes Moist Neck: NL Appearance and Movements; NL JVP, Trachea Midline Respiratory: Symmetrical Chest Expansion and Respiratory Effort, Clear to Auscultation Cardiovascular: NL Sounds; No Murmurs; No JVD, RRR Abdominal: NL Sounds; No Tenderness; No Distention, No Hepatosplenomegaly Lymphatic: No Cervical Adenopathy Extremities: No Clubbing, Cyanosis, - - trace ankle edema on left Skin: No Nodules or Sclerosis, - - left foot ulcer at bottom of foot covered with VAC dressing Neurological: Alert and Oriented x 3, - - left foot drop chronic Result Diagrams: 01/06/19 07:31 01/06/19 07:31 Additional Lab and Data: Lab Results 01/03/19 01/03/19 01/03/19 Range/Units 21:09 21:09 21:09 WBC 11.0 H (3.5-10.8) 10^3/uL RBC 4.51 (3.70-4.87) 10^6 /uL Hgb 12.1 (12.0-16.0) g/dL Hct 36 (33-41) % MCV 80 (80-97) fL MCH 27 (27-31) pg MCHC 34 (31-36) g/dL RDW 14 (10.5-15) % Plt Count 533 H (150-450) 10^3/uL MPV 7.9 (7.4-10.4) fL Neut % (Auto) 64.7 % Lymph % (Auto) 21.3 % [place] % (Auto) 12.7 % Eos % (Auto) 0.5 % Baso % (Auto) 0.8 % Absolute Neuts (auto) 7.1 (1.5-7.7) 10^3/ul Absolute Lymphs (auto) 2.3 (1.0-4.8) 10^3/ul Absolute Monos (auto) 1.4 H (0-0.8) 10^3/ul Absolute Eos (auto) 0.1 (0-0.6) 10^3/ul Absolute Basos (auto) 0.1 (0-0.2) 10^3/ul Absolute Nucleated RBC 0 10^3/ul Nucleated RBC % 0 ESR Pending Sodium 136 (135-145) mmol/L Potassium 3.0 L (3.5-5.0) mmol/L Chloride 96 L (101-111) mmol/L Carbon Dioxide 28 (22-32) mmol/L Anion Gap 12 H (2-11) mmol/L BUN 8 (6-24) mg/dL Creatinine 0.78 (0.51-0.95) mg/dL Est GFR ( Amer) 96.2 (>60) Est GFR (Non-Af Amer) 79.5 (>60) BUN/Creatinine Ratio 10.3 (8-20) Glucose 78 (70-100) mg/dL Lactic Acid 0.9 (0.5-2.0) mmol/L Calcium 9.5 (8.6-10.3) mg/dL Total Bilirubin 0.30 (0.2-1.0) mg/dL AST 22 (13-39) U/L ALT 15 (7-52) U/L Alkaline Phosphatase 256 H (34-104) U/L C-Reactive Protein Pending Total Protein 7.5 (6.4-8.9) g/dL Albumin 3.9 (3.2-5.2) g/dL Globulin 3.6 (2-4) g/dL Albumin/Globulin Ratio 1.1 (1-3) TSH 0.79 (0.34-5.60) mcIU/mL Beta HCG, Quant 1.24 mIU/mL Salicylates < 2.50 (<30) mg/dL Acetaminophen < 15 mcg/mL Serum Alcohol < 10 (<10) mg/dL Microbiology and Other Data: Microbiology 01/04/19 00:37 Gram Stain - Final Foot Left 01/04/19 01:24 Skin and Soft Tissue MRSA/MSSA (PCR - Final Foot Left Mrsa Negative S.aureus Positive Assess/Plan/Problems-Billing Assessment: 47 yo F with H polysubstance abuse ,hepatitis C , anxiety/ depression, presented with left leg compartment syndrome after syncope and collapse on 09/18 potential overdose, rhabdo, s/p 4 compartment fasciotomies, and multiple I&Ds now living alone presented with SI to ED and noted to have L foot wound - Patient Problems (1) Anxiety and depression Comment: With SI Appreciate psychiatry consult-cont Prozac, Trazadone cont 1:1 obs (2) Osteomyelitis Comment: of left foot , s/p debridement in OR on 01/04/19-now VAC in place cont Cefepime,Flagyl. MRSA wound cx neg-d/c Vanc OLE's abn on left, suspect vascular abn due to mame compartment syndrome. CTA ordered (3) Chronic, continuous use of opioids Comment: cont home methadone, will lower the dose due to hypotension-pt agrees (4) Polysubstance (including opioids) dependence w/o physiol dependence Comment: UDS positive for cocaine, amphetamines, cannabis again (5) DVT prophylaxis Comment: HSQ (6) Hypotension Comment: pt asymptomatic, non toxic appearing, suspect oversedation with narcotics. will lower daytime methadone from 30 to 20 mg Status and Disposition: inpatient
[2019-01-06] MEDS ORDERED: Iohexol 350* (CONTRAST) 500 ML MDV IV ONE (13:54)
--- NOTE | 2019-01-06 16:28 | PN ---
Subjective - Subjective Date of Service: 01/06/19 Service Type: [id number] Hosp care 25 min moderate complexity Subjective: Saw Peyton on her bedside. She was resting comfortably without any evidence of distress. Participated in the assessment with calm and pleasant mood. Reports of having a goos day today. Denies any mood, thoughts or perceptual disturbances. Also denies SI or HI. Eating and sleepi good she reports. Objective - General Observations Appearance: Well Groomed Appears Stated Age: Yes Stature: WNL Posture: WNL Eye Contact: Avoidant Behavior/Activity: WNL - Interaction Observations Attitude Towards Examiner: Cooperative Stated Mood: Euthymic Affect: Bright Speech Pattern/Tone: Appropriate, Normal Volume Thought Process: Coherent, Goal Directed Hallucination Type: None Delusion Type: None - Cognitive Function Orientation: A&O x 4 Level of Consciousness: Awake, Alert Cognition: WNL Estimated Intelligence: Normal Insight: WNL Judgment Within Normal Limits: Yes - Medication Compliance Cooperative with Inpatient Medication Regimen: Yes - Group Participation Group Participation Comments: On Medical floor. Assessment - Assessment Merits Inpatient Hospitalization: For Immediate Safety, Pending Safe DC Plan Plan - Plan Treatment Plan: Name: PEYTON LOVING Birthdate: 1970 [id number] Continued Medication Management: Continue Outpt Medication Medications: Current Medications Acetaminophen (Tylenol Tab*) 650 mg PO Q4H PRN PRN Reason: FEVER/PAIN Al Hydrox/Mg Hydrox/Simethicone (Maalox Plus*) 30 ml PO Q6H PRN PRN Reason: INDIGESTION Cetirizine HCl (Zyrtec*) 10 mg PO DAILY [facility] Last Admin: 01/06/19 08:04 Dose: 10 mg Docusate Sodium (Colace Cap*) 100 mg PO BID PRN PRN Reason: CONSTIPATION Last Admin: 01/06/19 11:17 Dose: 100 mg Fluoxetine HCl (Prozac Cap*) 30 mg PO DAILY [facility] Last Admin: 01/06/19 08:03 Dose: 30 mg Fluticasone Propionate (Flonase Nasal [place] 50mcg*) 2 spray BOTH NARES DAILY [facility] Last Admin: 01/06/19 08:02 Dose: 2 spray Heparin Sodium (Porcine) (Heparin Vial(*)) 5,000 units SUBCUT Q8HR [facility] Last Admin: 01/06/19 13:53 Dose: 5,000 units Lactated Ringer's (Lactated Ringers 1000 Ml Bag*) 1,000 mls @ 125 mls/hr IV PER RATE [facility] Stop: 01/06/19 23:59 Last Admin: 01/06/19 15:10 Dose: 125 mls/hr Cefepime HCl (Maxipime 2 Gm In Dextrose Duplex (*)) 2 gm in 50 mls @ 100 mls/ hr IV 0730,1930 [facility] Last Admin: 01/06/19 08:02 Dose: 100 mls/hr Metronidazole/Sodium Chloride (Flagyl 500 Mg Ivpb*) 500 mg in 100 mls @ 100 mls /hr IVPB 0830,2030 [facility] Last Admin: 01/06/19 09:01 Dose: 100 mls/hr Lorazepam (Ativan Tab(*)) 0.5 mg PO BID PRN PRN Reason: ANXIETY Last Admin: 01/05/19 20:55 Dose: 0.5 mg Methadone HCl (Dolophine Tab*) 10 mg PO BEDTIME [facility] Last Admin: 01/05/19 20:49 Dose: 10 mg Methadone HCl (Dolophine Tab*) 20 mg PO 0900,1400 [facility] Last Admin: 01/06/19 13:53 Dose: 20 mg Montelukast Sodium (Singulair Tab*) 10 mg PO BEDTIME [facility] Last Admin: 01/05/19 20:49 Dose: 10 mg Ondansetron HCl (Zofran Inj*) 4 mg IV Q4H PRN PRN Reason: NAUSEA/VOMITING Oxycodone/Acetaminophen (Percocet 5/325 Tab*) 1 tab PO Q3H PRN PRN Reason: PAIN - MILD TO MODERATE Pantoprazole Sodium (Protonix Tab*) 40 mg PO DAILY [facility] Last Admin: 01/06/19 08:04 Dose: 40 mg Pregabalin (Lyrica Cap(*)) 75 mg PO BID [facility] Last Admin: 01/06/19 08:03 Dose: 75 mg Senna (Senokot Tab*) 1 tab PO BID PRN PRN Reason: CONSTIPATION Last Admin: 01/06/19 11:17 Dose: 1 tab Trazodone HCl (Desyrel Tab*) 300 mg PO BEDTIME [facility] Last Admin: 01/05/19 22:47 Dose: 300 mg - Discharge Plan Discharge Plan: Inpatient Hospitalization
[2019-01-06] MEDS: oxyCODONE/Acetamin 5/325 MG* TAB PO PRN (17:04)
[2019-01-06] MEDS: traZODone TAB* 100 MG PO SCH (20:52)
[2019-01-06] MEDS: Montelukast Sodium TAB* 10 MG PO SCH (20:52)
[2019-01-07] MEDS: Docusate CAP* 100 MG PO PRN ×2 (05:17→20:31)
[2019-01-07] MEDS: Senna TAB PO PRN ×2 (05:17→20:31)
[2019-01-07] MEDS: Heparin VIAL(*) 5000 UNITS/ML VIAL (FIVE THOUSAND) SUBCUT SCH ×3 (05:17→20:32)
[2019-01-07] MEDS: Cefepime 2 GM in Dextrose(*) 2 GM/50 ML BAG IV SCH ×2 (07:13→19:21)
[2019-01-07 07:49] LABS: Hematocrit 31 % (33-41); Hemoglobin 10.2 g/dL (12.0-16.0); Mean Corpuscular HGB Conc 33 g/dL (31-36); Mean Corpuscular Hemoglobin 27 pg (27-31); Mean Corpuscular Volume 82 fL (80-97); Mean Platelet Volume 8.6 fL (7.4-10.4); Platelet Count 394 10^3/uL (150-450); Red Blood Count 3.81 10^6 /uL (3.70-4.87); Red Cell Distribution Width 15 % (10.5-15); White Blood Count 5.5 10^3/uL (3.5-10.8)
[2019-01-07 08:01] LABS: BUN/Creatinine Ratio 11.6 (8-20); Calcium 8.6 mg/dL (8.6-10.3); EGFR African American 110.8 (>60); EGFR Non-African American 91.6 (>60); Potassium 3.9 mmol/L (3.5-5.0)
[2019-01-07] MEDS: metroNIDAZOLE IV 500 MG/100ML* 500 MG/100 ML BAG IVPB SCH ×2 (08:11→20:17)
[2019-01-07] MEDS: FLUoxetine CAP* 10 MG PO SCH (08:12)
[2019-01-07] MEDS: Fluticasone NASAL SPRAY 50MCG* 16 gm SPRAY BTL BOTH NARES SCH (08:12)
[2019-01-07] MEDS: Pantoprazole TAB * 40 MG TAB PO SCH (08:12)
[2019-01-07] MEDS: Cetirizine* 10 MG TAB PO SCH (08:12)
[2019-01-07] MEDS: Pregabalin CAP(*) 25 MG PO SCH ×2 (08:13→20:28)
[2019-01-07] MEDS: Methadone TAB* 10 MG PO SCH ×3 (08:13→20:31)
[2019-01-07] MEDS ORDERED: fentaNYL* 50 MCG/ML 2 ML VIAL (100 MCG VIAL) ONE (10:15)
[2019-01-07] MEDS ORDERED: Ondansetron INJ* 2 MG/ML VIAL ONE (10:15)
[2019-01-07] MEDS ORDERED: Midazolam* 1 MG/ML 10 ML VIAL (10 MG) ONE (10:15)
[2019-01-07] MEDS ORDERED: Lidocaine 2% PF * 5 ML VIAL ONE (10:15)
[2019-01-07] MEDS ORDERED: KETAMINE HCL* 50 MG/ML 10 ML VIAL ONE (10:15)
[2019-01-07] MEDS ORDERED: Propofol* 10 MG/ML 20 ML BTL ONE (10:15)
[2019-01-07] MEDS ORDERED: Dexamethasone IV* 4 MG/ML 1 ML (4 MG) ONE (10:15)
[2019-01-07] MEDS ORDERED: Lidocaine 2% PF* 10 ML AMP ONE (10:25)
[2019-01-07] MEDS ORDERED: Naloxone* 0.4 MG/ML 1 ML VIAL IV PRN (11:26)
--- NOTE | 2019-01-07 12:17 | OP ---
DATE OF OPERATION: 01/07/19 - ROOM #403 DATE OF : 74 SURGEON: Jorge Luis Wen MD FILM PROCESSING SHIFT SUPERVISOR: ANN MARIE Granger PRE-OP DIAGNOSIS: Forefoot ulcer with some marginal necrosis. POST-OP DIAGNOSIS: Forefoot ulcer with some marginal necrosis. OPERATIVE PROCEDURE: Debridement of forefoot ulcer with VAC dressing. DESCRIPTION OF PROCEDURE: The patient was taken to the operating room where we removed the old VAC dressing, prepped the foot and then performed a local debridement with rongeur and Metzenbaum scissors. The wound was felt to be relatively clean after irrigation of 3 L. We applied the new VAC dressing to the forefoot and transferred to the recovery in satisfactory condition. [id number]/CPS #: [id number] MTDD
--- NOTE | 2019-01-07 12:42 | PN ---
Subjective Date of Service: 01/07/19 Interval History: Pt feels well. good appetite. Was taken off 1:1 by psychiatry S/p Vac changed in OR today Objective Active Medications: Acetaminophen (Tylenol Tab*) 650 mg PO Q4H PRN PRN Reason: FEVER/PAIN Al Hydrox/Mg Hydrox/Simethicone (Maalox Plus*) 30 ml PO Q6H PRN PRN Reason: INDIGESTION Cetirizine HCl (Zyrtec*) 10 mg PO DAILY [facility] Last Admin: 01/07/19 08:12 Dose: 10 mg Docusate Sodium (Colace Cap*) 100 mg PO BID PRN PRN Reason: CONSTIPATION Last Admin: 01/07/19 05:17 Dose: 100 mg Fluoxetine HCl (Prozac Cap*) 30 mg PO DAILY [facility] Last Admin: 01/07/19 08:12 Dose: 30 mg Fluticasone Propionate (Flonase Nasal [place] 50mcg*) 2 spray BOTH NARES DAILY [facility] Last Admin: 01/07/19 08:12 Dose: 2 spray Heparin Sodium (Porcine) (Heparin Vial(*)) 5,000 units SUBCUT Q8HR [facility] Last Admin: 01/07/19 05:17 Dose: 5,000 units Cefepime HCl (Maxipime 2 Gm In Dextrose Duplex (*)) 2 gm in 50 mls @ 100 mls/ hr IV 0730,1930 [facility] Last Admin: 01/07/19 07:13 Dose: 100 mls/hr Metronidazole/Sodium Chloride (Flagyl 500 Mg Ivpb*) 500 mg in 100 mls @ 100 mls /hr IVPB 0830,2030 [facility] Last Admin: 01/07/19 08:11 Dose: 100 mls/hr Lorazepam (Ativan Tab(*)) 0.5 mg PO BID PRN PRN Reason: ANXIETY Last Admin: 01/05/19 20:55 Dose: 0.5 mg Methadone HCl (Dolophine Tab*) 10 mg PO BEDTIME [facility] Last Admin: 01/06/19 20:50 Dose: 10 mg Methadone HCl (Dolophine Tab*) 20 mg PO 0900,1400 [facility] Last Admin: 01/07/19 08:13 Dose: 20 mg Montelukast Sodium (Singulair Tab*) 10 mg PO BEDTIME [facility] Last Admin: 04/27/19 20:52 Dose: 10 mg Naloxone HCl (Narcan*) 0.08 mg IV Q2M PRN PRN Reason: severe induced resp depression Ondansetron HCl (Zofran Inj*) 4 mg IV Q4H PRN PRN Reason: NAUSEA/VOMITING Oxycodone/Acetaminophen (Percocet 5/325 Tab*) 1 tab PO Q3H PRN PRN Reason: PAIN - MILD TO MODERATE Last Admin: 01/06/19 17:04 Dose: 1 tab Pantoprazole Sodium (Protonix Tab*) 40 mg PO DAILY [facility] Last Admin: 01/07/19 08:12 Dose: 40 mg Pregabalin (Lyrica Cap(*)) 75 mg PO BID [facility] Last Admin: 01/07/19 08:13 Dose: 75 mg Senna (Senokot Tab*) 1 tab PO BID PRN PRN Reason: CONSTIPATION Last Admin: 01/07/19 05:17 Dose: 1 tab Trazodone HCl (Desyrel Tab*) 300 mg PO BEDTIME [facility] Last Admin: 01/06/19 20:52 Dose: 300 mg Vital Signs - 8 hr 01/07/19 01/07/19 01/07/19 07:33 08:00 08:13 Temperature 98.2 F Pulse Rate 63 Respiratory 16 14 14 Rate Blood Pressure 92/40 (mmHg) O2 Sat by Pulse 93 Oximetry 01/07/19 01/07/19 01/07/19 11:18 11:20 11:25 Temperature 97.0 F Pulse Rate 63 60 61 Respiratory Rate Blood Pressure 92/57 89/55 92/60 (mmHg) O2 Sat by Pulse 99 100 100 Oximetry 01/07/19 01/07/19 01/07/19 11:30 11:35 11:40 Temperature Pulse Rate 59 60 60 Respiratory Rate Blood Pressure 96/54 85/54 90/59 (mmHg) O2 Sat by Pulse 100 95 92 Oximetry 01/07/19 01/07/19 11:45 12:00 Temperature 98.6 F Pulse Rate 60 58 Respiratory Rate Blood Pressure 87/59 89/59 (mmHg) O2 Sat by Pulse 92 92 Oximetry Oxygen Devices in Use Now: None Appearance: 48 yo F in nAD, aAOx3 Eyes: No Scleral Icterus, PERRLA Ears/Nose/Mouth/Throat: NL Teeth, Lips, Gums, Mucous Membranes Moist Neck: NL Appearance and Movements; NL JVP, Trachea Midline Respiratory: Symmetrical Chest Expansion and Respiratory Effort, - - scant wheezes b/l Cardiovascular: NL Sounds; No Murmurs; No JVD, RRR Abdominal: NL Sounds; No Tenderness; No Distention Lymphatic: No Cervical Adenopathy, No Axillary Adenopathy Extremities: No Clubbing, Cyanosis, - - trace left ankle edema Skin: - - left foot with Vac dressing in place Neurological: Alert and Oriented x 3, - - left foot drop -chronic Result Diagrams: 01/07/19 07:06 01/07/19 07:06 Additional Lab and Data: Lab Results 01/03/19 01/03/19 01/03/19 Range/Units 21:09 21:09 21:09 WBC 11.0 H (3.5-10.8) 10^3/uL RBC 4.51 (3.70-4.87) 10^6 /uL Hgb 12.1 (12.0-16.0) g/dL Hct 36 (33-41) % MCV 80 (80-97) fL MCH 27 (27-31) pg MCHC 34 (31-36) g/dL RDW 14 (10.5-15) % Plt Count 533 H (150-450) 10^3/uL MPV 7.9 (7.4-10.4) fL Neut % (Auto) 64.7 % Lymph % (Auto) 21.3 % [place] % (Auto) 12.7 % Eos % (Auto) 0.5 % Baso % (Auto) 0.8 % Absolute Neuts (auto) 7.1 (1.5-7.7) 10^3/ul Absolute Lymphs (auto) 2.3 (1.0-4.8) 10^3/ul Absolute Monos (auto) 1.4 H (0-0.8) 10^3/ul Absolute Eos (auto) 0.1 (0-0.6) 10^3/ul Absolute Basos (auto) 0.1 (0-0.2) 10^3/ul Absolute Nucleated RBC 0 10^3/ul Nucleated RBC % 0 ESR Pending Sodium 136 (135-145) mmol/L Potassium 3.0 L (3.5-5.0) mmol/L Chloride 96 L (101-111) mmol/L Carbon Dioxide 28 (22-32) mmol/L Anion Gap 12 H (2-11) mmol/L BUN 8 (6-24) mg/dL Creatinine 0.78 (0.51-0.95) mg/dL Est GFR ( Amer) 96.2 (>60) Est GFR (Non-Af Amer) 79.5 (>60) BUN/Creatinine Ratio 10.3 (8-20) Glucose 78 (70-100) mg/dL Lactic Acid 0.9 (0.5-2.0) mmol/L Calcium 9.5 (8.6-10.3) mg/dL Total Bilirubin 0.30 (0.2-1.0) mg/dL AST 22 (13-39) U/L ALT 15 (7-52) U/L Alkaline Phosphatase 256 H (34-104) U/L C-Reactive Protein Pending Total Protein 7.5 (6.4-8.9) g/dL Albumin 3.9 (3.2-5.2) g/dL Globulin 3.6 (2-4) g/dL Albumin/Globulin Ratio 1.1 (1-3) TSH 0.79 (0.34-5.60) mcIU/mL Beta HCG, Quant 1.24 mIU/mL Salicylates < 2.50 (<30) mg/dL Acetaminophen < 15 mcg/mL Serum Alcohol < 10 (<10) mg/dL Microbiology and Other Data: Microbiology 01/04/19 00:37 Gram Stain - Final Foot Left 01/04/19 01:24 Skin and Soft Tissue MRSA/MSSA (PCR - Final Foot Left Mrsa Negative S.aureus Positive Assess/Plan/Problems-Billing Assessment: 47 yo F with H polysubstance abuse ,hepatitis C , anxiety/ depression, presented with left leg compartment syndrome after syncope and collapse on 09/18 potential overdose, rhabdo, s/p 4 compartment fasciotomies, and multiple I&Ds now living alone presented with SI to ED and noted to have L foot wound - Patient Problems (1) Anxiety and depression Comment: With SI Appreciate psychiatry consult-cont Prozac, Trazadone 1:1 obs d/c'd on 01/06/19 (2) Osteomyelitis Comment: of left foot , s/p debridement in OR on 01/04/19-now VAC in place cont Cefepime,Flagyl. MRSA wound cx neg-d/c Vanc Wopund cx positive for Providencia, H. Parinfluenzae OLE's abn on left, suspect vascular abn due to h/o compartment syndrome. CTA not read yet (3) Chronic, continuous use of opioids Comment: cont home methadone, the dose was lowered due to hypotension on -pt agreed (4) Polysubstance (including opioids) dependence w/o physiol dependence Comment: UDS positive for cocaine, amphetamines, cannabis again (5) DVT prophylaxis Comment: HSQ (6) Hypotension Comment: pt asymptomatic, non toxic appearing, suspect oversedation with narcotics. daytime methadone lowered from 30 to 20 mg Status and Disposition: inpatient
[2019-01-07] MEDS ORDERED: Magnesium CITRATE* 300 ML BTL PO ONE (16:00)
[2019-01-07] MEDS: LORazepam TAB(*) 0.5 MG PO PRN (16:57)
[2019-01-07] MEDS: oxyCODONE/Acetamin 5/325 MG* TAB PO PRN ×2 (16:58→20:29)
--- NOTE | 2019-01-07 18:11 | PN ---
Progress Note - Progress Note Date of Service: 01/07/19 Note: Yuki is having a better day today. Says she has less pain and feels less depressed. Denies SI, HI, hallucinations or hallucination. Plans remains the same as before to transfer her to [facility] after medical clearence.
[2019-01-07] MEDS: traZODone TAB* 100 MG PO SCH (20:28)
[2019-01-07] MEDS: Montelukast Sodium TAB* 10 MG PO SCH (20:32)
[2019-01-08] MEDS: Heparin VIAL(*) 5000 UNITS/ML VIAL (FIVE THOUSAND) SUBCUT SCH ×3 (05:08→21:32)
[2019-01-08 06:38] LABS: ABS Basophils 0.1 10^3/ul (0-0.2); ABS Eosinophils 0 10^3/ul (0-0.6); ABS Monocytes 0.7 10^3/ul (0-0.8); ABS Neutrophils 6.6 10^3/ul (1.5-7.7); ABS Nucleated RBC 0 10^3/ul; Eosinophil % 0 %; Hematocrit 33 % (33-41); Lymphocyte % 21.1 %; Mean Corpuscular HGB Conc 34 g/dL (31-36); Mean Corpuscular Hemoglobin 27 pg (27-31); Mean Corpuscular Volume 81 fL (80-97); Mean Platelet Volume 8.6 fL (7.4-10.4); Nucleated Red Blood Cells % 0; Platelet Count 439 10^3/uL (150-450); Red Blood Count 4.03 10^6 /uL (3.70-4.87); Red Cell Distribution Width 14 % (10.5-15); White Blood Count 9.3 10^3/uL (3.5-10.8)
[2019-01-08 06:56] LABS: EGFR African American 118.7 (>60); EGFR Non-African American 98.1 (>60)
[2019-01-08] MEDS: Cefepime 2 GM in Dextrose(*) 2 GM/50 ML BAG IV SCH (07:54)
[2019-01-08] MEDS ORDERED: Sodium Phosphate ADULT ENEMA* 118 ml bottle PR PRN (09:52)
[2019-01-08] MEDS: FLUoxetine CAP* 10 MG PO SCH (09:54)
[2019-01-08] MEDS: Pregabalin CAP(*) 25 MG PO SCH ×2 (09:55→21:32)
[2019-01-08] MEDS: Cetirizine* 10 MG TAB PO SCH (09:56)
[2019-01-08] MEDS: Methadone TAB* 10 MG PO SCH ×3 (09:56→21:33)
[2019-01-08] MEDS: Pantoprazole TAB * 40 MG TAB PO SCH (09:56)
[2019-01-08] MEDS: metroNIDAZOLE IV 500 MG/100ML* 500 MG/100 ML BAG IVPB SCH ×2 (09:57→21:31)
[2019-01-08] MEDS: oxyCODONE/Acetamin 5/325 MG* TAB PO PRN ×4 (09:57→21:32)
[2019-01-08] MEDS: Fluticasone NASAL SPRAY 50MCG* 16 gm SPRAY BTL BOTH NARES SCH (09:57)
--- NOTE | 2019-01-08 10:52 | PN ---
Progress Note - Progress Note Date of Service: 01/08/19 SOAP: Subjective: [] Pt seen at bedside with Dr Wen, she is in good spirits. Denies LLE pain, CP, SOB, dizziness, nausea. Objective: []General: NAD LLE: VaC in place with good suction, no surrounding erythema. Lacks DF/PF and sensation of foot. Slow cap refill, pale foot. Calf is supple and nontender. Assessment: []POD 1 sp debridement of forefoot ulcer and vac change Plan: [] NWB LLE Had aorta w runoff CTA and ABIs. Dr Wen will discuss vasc options with Dr Diaz Will continue vac changes Q 3 days, this can now be done at bedside. Laboratory Last Values WBC 9.3 10^3/uL (3.5-10.8) 01/08/19 06:03 RBC 4.03 10^6 /uL (3.70-4.87) 01/08/19 06:03 Hgb 11.0 g/dL (12.0-16.0) L 01/08/19 06:03 Hct 33 % (33-41) 01/08/19 06:03 MCV 81 fL (80-97) 01/08/19 06:03 MCH 27 pg (27-31) 01/08/19 06:03 MCHC 34 g/dL (31-36) 01/08/19 06:03 RDW 14 % (10.5-15) 01/08/19 06:03 Plt Count 439 10^3/uL (150-450) 01/08/19 06:03 MPV 8.6 fL (7.4-10.4) 01/08/19 06:03 Neut % (Auto) 70.5 % 01/08/19 06:03 Lymph % (Auto) 21.1 % 01/08/19 06:03 [place] % (Auto) 7.8 % 01/08/19 06:03 Eos % (Auto) 0 % 01/08/19 06:03 Baso % (Auto) 0.6 % 01/08/19 06:03 Absolute Neuts (auto) 6.6 10^3/ul (1.5-7.7) 01/08/19 06:03 Absolute Lymphs (auto) 2.0 10^3/ul (1.0-4.8) 01/08/19 06:03 Absolute Monos (auto) 0.7 10^3/ul (0-0.8) 01/08/19 06:03 Absolute Eos (auto) 0 10^3/ul (0-0.6) 01/08/19 06:03 Absolute Basos (auto) 0.1 10^3/ul (0-0.2) 01/08/19 06:03 Absolute Nucleated RBC 0 10^3/ul 01/08/19 06:03 Nucleated RBC % 0 01/08/19 06:03 ESR > 120 mm/Hr (0-19) H 01/03/19 21:09 Sodium 141 mmol/L (135-145) 01/08/19 06:03 Potassium 4.0 mmol/L (3.5-5.0) 01/08/19 06:03 Chloride 107 mmol/L (101-111) 01/08/19 06:03 Carbon Dioxide 27 mmol/L (22-32) 01/08/19 06:03 Anion Gap 7 mmol/L (2-11) 01/08/19 06:03 BUN 13 mg/dL (6-24) 01/08/19 06:03 Creatinine 0.65 mg/dL (0.51-0.95) 01/08/19 06:03 Est GFR ( Amer) 118.7 (>60) 01/08/19 06:03 Est GFR (Non-Af Amer) 98.1 (>60) 01/08/19 06:03 BUN/Creatinine Ratio 20.0 (8-20) 01/08/19 06:03 Glucose 129 mg/dL (70-100) H 01/08/19 06:03 Lactic Acid 1.4 mmol/L (0.5-2.0) 01/08/19 06:03 Calcium 9.0 mg/dL (8.6-10.3) 01/08/19 06:03 Magnesium 2.0 mg/dL (1.9-2.7) 01/07/19 07:06 Total Bilirubin 0.30 mg/dL (0.2-1.0) 01/03/19 21:09 AST 22 U/L (13-39) 01/03/19 21:09 ALT 15 U/L (7-52) 01/03/19 21:09 Alkaline Phosphatase 256 U/L (34-104) H 01/03/19 21:09 C-Reactive Protein 78.29 mg/L (<8.01) H 01/03/19 21:09 Total Protein 7.5 g/dL (6.4-8.9) 01/03/19 21:09 Albumin 3.9 g/dL (3.2-5.2) 01/03/19 21:09 Globulin 3.6 g/dL (2-4) 01/03/19 21:09 Albumin/Globulin Ratio 1.1 (1-3) 01/03/19 21:09 TSH 0.79 mcIU/mL (0.34-5.60) 01/03/19 21:09 Beta HCG, Quant 1.24 mIU/mL 01/03/19 21:09 Salicylates < 2.50 mg/dL (<30) 01/03/19 21:09 Urine Opiates Screen None detected (None Detect) 01/04/19 01:45 Acetaminophen < 15 mcg/mL 01/03/19 21:09 Ur Barbiturates Screen None detected (None Detect) 01/04/19 01:45 Ur Phencyclidine Scrn None detected (None Detect) 01/04/19 01:45 Ur Amphetamines Screen Presumptive positive (None Detect) A 01/04/19 01:45 U Benzodiazepines Scrn None detected (None Detect) 01/04/19 01:45 Urine Cocaine Screen Presumptive positive (None Detect) A 01/04/19 01:45 U Cannabinoids Screen Presumptive positive (None Detect) A 01/04/19 01:45 Serum Alcohol < 10 mg/dL (<10) 01/03/19 21:09 Vital Signs Temp 98.4 F 01/08/19 07:28 Pulse 64 01/08/19 07:28 Resp 16 01/08/19 09:57 BP 98/55 01/08/19 07:28 Pulse Ox 96 01/08/19 07:28 Intake & Output 01/07/19 01/08/19 01/08/19 18:59 06:59 18:59 Intake Total 1954 1102 360 Balance 1954 1102 360 Intake: IV Fluids 1325 60 ABX - CEFEPIME 10 ABX - FLAGYL 15 LR 1300 NS (0.9%) 60 IVPB 150 162 ABX 162 ABX - CEFEPIME 50 ABX - FLAGYL 100 Oral 480 880 360 Other: Estimated Void Large Large # Bowel Movements 0 0 # Voids 1 2
--- NOTE | 2019-01-08 11:25 | PN ---
Subjective Date of Service: 01/08/19 Interval History: Pt feels tired, Had low 02 sats at night and was placed on 02 Denies SOB, CP Objective Active Medications: Acetaminophen (Tylenol Tab*) 650 mg PO Q4H PRN PRN Reason: FEVER/PAIN Al Hydrox/Mg Hydrox/Simethicone (Maalox Plus*) 30 ml PO Q6H PRN PRN Reason: INDIGESTION Albuterol (Ventolin Hfa Inhaler*) 2 puff INH Q4H PRN PRN Reason: SOB/WHEEZING Cetirizine HCl (Zyrtec*) 10 mg PO DAILY [facility] Last Admin: 01/08/19 09:56 Dose: 10 mg Docusate Sodium (Colace Cap*) 100 mg PO BID PRN PRN Reason: CONSTIPATION Last Admin: 01/07/19 20:31 Dose: 100 mg Fluoxetine HCl (Prozac Cap*) 30 mg PO DAILY [facility] Last Admin: 01/08/19 09:54 Dose: 30 mg Fluticasone Propionate (Flonase Nasal [place] 50mcg*) 2 spray BOTH NARES DAILY [facility] Last Admin: 01/08/19 09:57 Dose: 2 spray Heparin Sodium (Porcine) (Heparin Vial(*)) 5,000 units SUBCUT Q8HR [facility] Last Admin: 01/08/19 05:08 Dose: 5,000 units Cefepime HCl (Maxipime 2 Gm In Dextrose Duplex (*)) 2 gm in 50 mls @ 100 mls/ hr IV 0730,1930 [facility] Last Admin: 01/08/19 07:54 Dose: 100 mls/hr Metronidazole/Sodium Chloride (Flagyl 500 Mg Ivpb*) 500 mg in 100 mls @ 100 mls /hr IVPB 0830,2030 [facility] Last Admin: 01/08/19 09:57 Dose: 100 mls/hr Lorazepam (Ativan Tab(*)) 0.5 mg PO BID PRN PRN Reason: ANXIETY Last Admin: 01/07/19 16:57 Dose: 0.5 mg Methadone HCl (Dolophine Tab*) 10 mg PO BEDTIME [facility] Last Admin: 01/07/19 20:31 Dose: 10 mg Methadone HCl (Dolophine Tab*) 20 mg PO 0900,1400 [facility] Last Admin: 01/08/19 09:56 Dose: 20 mg Montelukast Sodium (Singulair Tab*) 10 mg PO BEDTIME [facility] Last Admin: 01/07/19 20:32 Dose: 10 mg Ondansetron HCl (Zofran Inj*) 4 mg IV Q4H PRN PRN Reason: NAUSEA/VOMITING Oxycodone/Acetaminophen (Percocet 5/325 Tab*) 1 tab PO Q3H PRN PRN Reason: PAIN - MILD TO MODERATE Last Admin: 01/08/19 09:57 Dose: 1 tab Pantoprazole Sodium (Protonix Tab*) 40 mg PO DAILY [facility] Last Admin: 01/08/19 09:56 Dose: 40 mg Pregabalin (Lyrica Cap(*)) 75 mg PO BID [facility] Last Admin: 01/08/19 09:55 Dose: 75 mg Senna (Senokot Tab*) 1 tab PO BID PRN PRN Reason: CONSTIPATION Last Admin: 01/07/19 20:31 Dose: 1 tab Sodium Biphosphate/Sodium Phosphate (Fleet Enema*) 1 bottle [place] DAILY PRN PRN Reason: CONSTIPATION Trazodone HCl (Desyrel Tab*) 300 mg PO BEDTIME [facility] Last Admin: 01/07/19 20:28 Dose: 300 mg Vital Signs - 8 hr 01/08/19 01/08/19 01/08/19 03:35 07:28 09:55 Temperature 97.2 F 98.4 F Pulse Rate 60 64 Respiratory 19 16 18 Rate Blood Pressure 87/54 98/55 (mmHg) O2 Sat by Pulse 98 96 Oximetry 01/08/19 01/08/19 09:56 09:57 Temperature Pulse Rate Respiratory 20 16 Rate Blood Pressure (mmHg) O2 Sat by Pulse Oximetry Oxygen Devices in Use Now: Nasal Cannula Appearance: 48 yo F in nAD, aAOx3 Eyes: No Scleral Icterus, PERRLA Ears/Nose/Mouth/Throat: NL Teeth, Lips, Gums, Mucous Membranes Moist Neck: NL Appearance and Movements; NL JVP Respiratory: Symmetrical Chest Expansion and Respiratory Effort, - - faint bibasiliar crackles Cardiovascular: NL Sounds; No Murmurs; No JVD Abdominal: NL Sounds; No Tenderness; No Distention Lymphatic: No Cervical Adenopathy Extremities: No Clubbing, Cyanosis, - - left leg edema +1 Skin: - - left foot with Vac dressing in place Neurological: Alert and Oriented x 3, - - chronic left foot drop Result Diagrams: 01/08/19 06:03 01/08/19 06:03 Additional Lab and Data: Lab Results 01/03/19 01/03/19 01/03/19 Range/Units 21:09 21:09 21:09 WBC 11.0 H (3.5-10.8) 10^3/uL RBC 4.51 (3.70-4.87) 10^6 /uL Hgb 12.1 (12.0-16.0) g/dL Hct 36 (33-41) % MCV 80 (80-97) fL MCH 27 (27-31) pg MCHC 34 (31-36) g/dL RDW 14 (10.5-15) % Plt Count 533 H (150-450) 10^3/uL MPV 7.9 (7.4-10.4) fL Neut % (Auto) 64.7 % Lymph % (Auto) 21.3 % [place] % (Auto) 12.7 % Eos % (Auto) 0.5 % Baso % (Auto) 0.8 % Absolute Neuts (auto) 7.1 (1.5-7.7) 10^3/ul Absolute Lymphs (auto) 2.3 (1.0-4.8) 10^3/ul Absolute Monos (auto) 1.4 H (0-0.8) 10^3/ul Absolute Eos (auto) 0.1 (0-0.6) 10^3/ul Absolute Basos (auto) 0.1 (0-0.2) 10^3/ul Absolute Nucleated RBC 0 10^3/ul Nucleated RBC % 0 ESR Pending Sodium 136 (135-145) mmol/L Potassium 3.0 L (3.5-5.0) mmol/L Chloride 96 L (101-111) mmol/L Carbon Dioxide 28 (22-32) mmol/L Anion Gap 12 H (2-11) mmol/L BUN 8 (6-24) mg/dL Creatinine 0.78 (0.51-0.95) mg/dL Est GFR ( Amer) 96.2 (>60) Est GFR (Non-Af Amer) 79.5 (>60) BUN/Creatinine Ratio 10.3 (8-20) Glucose 78 (70-100) mg/dL Lactic Acid 0.9 (0.5-2.0) mmol/L Calcium 9.5 (8.6-10.3) mg/dL Total Bilirubin 0.30 (0.2-1.0) mg/dL AST 22 (13-39) U/L ALT 15 (7-52) U/L Alkaline Phosphatase 256 H (34-104) U/L C-Reactive Protein Pending Total Protein 7.5 (6.4-8.9) g/dL Albumin 3.9 (3.2-5.2) g/dL Globulin 3.6 (2-4) g/dL Albumin/Globulin Ratio 1.1 (1-3) TSH 0.79 (0.34-5.60) mcIU/mL Beta HCG, Quant 1.24 mIU/mL Salicylates < 2.50 (<30) mg/dL Acetaminophen < 15 mcg/mL Serum Alcohol < 10 (<10) mg/dL Microbiology and Other Data: Microbiology 01/04/19 00:37 Gram Stain - Final Foot Left 01/04/19 01:24 Skin and Soft Tissue MRSA/MSSA (PCR - Final Foot Left Mrsa Negative S.aureus Positive Assess/Plan/Problems-Billing Assessment: 47 yo F with PMH polysubstance abuse ,hepatitis C , anxiety/ depression, presented with left leg compartment syndrome after syncope and collapse on 09/18 potential overdose, rhabdo, s/p 4 compartment fasciotomies, and multiple I&Ds now living alone presented with SI to ED and noted to have L foot wound - Patient Problems (1) Anxiety and depression Comment: With SI, planbned to go to [facility] once medically treated Appreciate psychiatry consult-cont Prozac, Trazadone 1:1 obs d/c'd on 01/06/19 (2) Osteomyelitis Comment: of left foot , s/p debridement in OR on 01/04/19-now VAC in place cont Cefepime,Flagyl. MRSA wound cx neg-d/c Vanc Wopund cx positive for Providencia, H. Parinfluenzae OLE's abn on left, suspect vascular abn due to h/o compartment syndrome. CTA shows left a.dorsalis pedis abnormality-surgical sercvice plans to d/w Dr. Diaz today (3) Chronic, continuous use of opioids Comment: cont home methadone, the dose was lowered due to hypotension on -pt agreed (4) Polysubstance (including opioids) dependence w/o physiol dependence Comment: UDS positive for cocaine, amphetamines, cannabis again (5) DVT prophylaxis Comment: HSQ (6) Hypotension Comment: pt asymptomatic, non toxic appearing, suspect oversedation with narcotics. daytime methadone lowered from 30 to 20 mg Lactic acid at 1.4 today. encouraged OOB Status and Disposition: inpatient
--- NOTE | 2019-01-08 15:14 | PN ---
Subjective - Subjective Date of Service: 01/08/19 Service Type: [id number] Hosp care 15 min low complexity Subjective: Yuki is in a reasonably good mood and is trying to keep her spirits up. She's wearing a wound vac slipper and watching a fishing show. She has vomited several times today and has been constipated. She is feeling better now. Psychiatrically, she seems dysphoric, but stable. Plan - Plan Treatment Plan: Name: EDD LOVING Birthdate: 1970 [id number] Medications: Current Medications Acetaminophen (Tylenol Tab*) 650 mg PO Q4H PRN PRN Reason: FEVER/PAIN Al Hydrox/Mg Hydrox/Simethicone (Maalox Plus*) 30 ml PO Q6H PRN PRN Reason: INDIGESTION Albuterol (Ventolin Hfa Inhaler*) 2 puff INH Q4H PRN PRN Reason: SOB/WHEEZING Cetirizine HCl (Zyrtec*) 10 mg PO DAILY [facility] Last Admin: 01/08/19 09:56 Dose: 10 mg Docusate Sodium (Colace Cap*) 100 mg PO BID PRN PRN Reason: CONSTIPATION Last Admin: 01/07/19 20:31 Dose: 100 mg Fluoxetine HCl (Prozac Cap*) 30 mg PO DAILY [facility] Last Admin: 01/08/19 09:54 Dose: 30 mg Fluticasone Propionate (Flonase Nasal [place] 50mcg*) 2 spray BOTH NARES DAILY [facility] Last Admin: 01/08/19 09:57 Dose: 2 spray Heparin Sodium (Porcine) (Heparin Vial(*)) 5,000 units SUBCUT Q8HR [facility] Last Admin: 01/08/19 05:08 Dose: 5,000 units Metronidazole/Sodium Chloride (Flagyl 500 Mg Ivpb*) 500 mg in 100 mls @ 100 mls /hr IVPB 0830,2030 [facility] Last Admin: 01/08/19 09:57 Dose: 100 mls/hr Ceftriaxone Sodium 1 gm/ (Sodium Chloride) 50 mls @ 200 mls/hr IVPB Q24H [facility] Lorazepam (Ativan Tab(*)) 0.5 mg PO BID PRN PRN Reason: ANXIETY Last Admin: 01/07/19 16:57 Dose: 0.5 mg Methadone HCl (Dolophine Tab*) 10 mg PO BEDTIME [facility] Last Admin: 01/07/19 20:31 Dose: 10 mg Methadone HCl (Dolophine Tab*) 20 mg PO 0900,1400 [facility] Last Admin: 01/08/19 09:56 Dose: 20 mg Montelukast Sodium (Singulair Tab*) 10 mg PO BEDTIME [facility] Last Admin: 01/07/19 20:32 Dose: 10 mg Ondansetron HCl (Zofran Inj*) 4 mg IV Q4H PRN PRN Reason: NAUSEA/VOMITING Oxycodone/Acetaminophen (Percocet 5/325 Tab*) 1 tab PO Q3H PRN PRN Reason: PAIN - MILD TO MODERATE Last Admin: 01/08/19 09:57 Dose: 1 tab Pantoprazole Sodium (Protonix Tab*) 40 mg PO DAILY [facility] Last Admin: 01/08/19 09:56 Dose: 40 mg Pregabalin (Lyrica Cap(*)) 75 mg PO BID [facility] Last Admin: 01/08/19 09:55 Dose: 75 mg Senna (Senokot Tab*) 1 tab PO BID PRN PRN Reason: CONSTIPATION Last Admin: 01/07/19 20:31 Dose: 1 tab Sodium Biphosphate/Sodium Phosphate (Fleet Enema*) 1 bottle [place] DAILY PRN PRN Reason: CONSTIPATION Last Admin: 01/08/19 13:58 Dose: 1 bottle Trazodone HCl (Desyrel Tab*) 300 mg PO BEDTIME [facility] Last Admin: 01/07/19 20:28 Dose: 300 mg
[2019-01-08] MEDS: Al Hydrox/Mg Hydrox/Simet LIQ* 30 ML UDC PO PRN (18:14)
[2019-01-08] MEDS: cefTRIAXone(*) 1 GM in NS 0.9% 50 ML* 50 ML IVPB SCH (19:19)
[2019-01-08] MEDS: Albuterol HFA INHALER* 8 gm MDI INH PRN (19:46)
--- NOTE | 2019-01-08 20:13 | CONS ---
CONSULTATION REPORT: DATE OF CONSULT: 01/08/19 PRIMARY CARE PROVIDER: [facility]. PROVIDER REQUESTING CONSULT: ANN MARIE Lopez CONSULTING SERVICE: Infectious Disease. ATTENDING PROVIDER: Dr. Miguel Shelby * (dictated by Mirna Meehan NP). REASON FOR CONSULT: Left foot infection, status post debridement. IMPRESSION: 1. Left foot infection. The wound was located near the fifth metatarsal. MRI shows osteomyelitis at the fourth metatarsal. Due to the close proximity of the wound and the MRI reading of the possibility of osteomyelitis at the head of the fourth metatarsal and proximal phalanx, this likely represents acute osteomyelitis. The patient has multiple organisms growing in her wound cultures including Haemophilus parainfluenzae, Staphylococcus aureus, alcaligenes species, Providencia rettgeri, Peptoniphilus asaccharolyticus, methicillin-resistant Staphylococcus aureus negative. Anaerobic cultures are pending at this time. Blood cultures with no growth to date. 2. Chronic pain. 3. Anxiety/depression with suicidal ideation on admission. PLAN: Discontinue cefepime and change to ceftriaxone 1 g IV daily, in addition to Flagyl 500 mg twice daily. She will need 6 weeks of IV antibiotics to treat her osteomyelitis. Further recommendations based on final wound cultures. HISTORY OF PRESENT ILLNESS: Ms. Trujillo is a 48-year-old female with a past medical history significant for polysubstance abuse, who developed left lower extremity compartment syndrome in September 2018, status post several fasciotomies with multiple debridement requiring wound VAC. She had closure of the wounds. The patient states that her wounds have been closed and she was doing well, has peripheral neuropathy and a footdrop as a result of complications from her compartment syndrome. She states that while walking over a week ago, she stepped on something and this area turned into a blister. She saw Dr. Appiah, who started her on Keflex. When the wound was not getting any better with the antibiotics, she presented to the emergency room for further evaluation. Additionally, at the time of presentation to the hospital, the patient was reporting suicidal ideation. She was started on IV antibiotics and referred to the hospitalist service for admission. During her hospitalization, she underwent debridement of the forefoot ulcer and wound VAC dressing change on 01/07/19 and initially had surgery on 01/04/19. She had irrigation and debridement and placement of a wound VAC. She had an MRI of the left foot showing "muscular edema with no drainable fluid collections and diffuse edema, has bone marrow replacement with bone marrow edema at the head of the fourth metatarsal and proximal phalanx suggestive of osteomyelitis. There is bone marrow replacement with bone marrow edema at the distal phalanx of the great toe. Mild bone marrow edema noted at the anterior talus and cuboid , which may represent reactive edema. No drainable fluid collections noted". She had a right lower extremity arterial study showing "abnormal toe brachial index". Additionally, she had an aorta with runoff CTA showing "patent arterial flow documented from the abdominal aorta to the left foot with 2-vessel runoff on the right, dominant single-vessel runoff on the left provided by the posterior tibial artery". She denies fevers, chills. She reports occasional shortness of breath. She reports pain in bilateral legs. She denies rash, diarrhea. She reports constipation. She denies urinary symptoms such as urgency, frequency, dysuria. PAST MEDICAL HISTORY: 1. Anxiety. 2. Depression. 3. Posttraumatic stress disorder. 4. GERD. 5. Hepatitis C. 6. Polysubstance abuse. 7. Chronic pain, on methadone. 8. Asthma. PAST SURGICAL HISTORY: 1. Status post fasciotomy and multiple debridement secondary to compartment syndrome of the left lower extremity. 2. Status post right knee arthroscopy, partial knee arthroplasty. MEDICATIONS: Home medications: 1. Effexor 150 mg by mouth daily. 2. Trazodone 300 mg by mouth at bedtime. 3. Protonix 40 mg by mouth daily. 4. Multivitamin 1 tablet by mouth daily. 5. Singulair 10 mg by mouth daily. 6. Methadone 20 mg by mouth 3 times daily. 7. Loratadine 1 tablet by mouth daily. 8. Lorazepam 0.5 mg by mouth every 6 hours as needed for anxiety. 9. Gabapentin 100 mg by mouth 3 times daily. 10. Fluticasone 50 mcg 2 sprays to both nares daily. 11. Methylprednisolone 4 mg tablet by mouth as directed. Hospital medications: 1. Acetaminophen 650 mg by mouth every 4 hours as needed for fever or chills. 2. Maalox Plus 30 mL by mouth every 6 hours as needed for indigestion. 3. Albuterol HFA inhaler 2 puffs inhalation every 4 hours as needed for shortness of breath or wheeze. 4. Cefepime 2 g IV q.12 hours. 5. Sertraline 10 mg by mouth daily. 6. Colace 100 mg by mouth twice daily as needed for constipation. 7. Prozac 30 mg by mouth daily. 8. Fluticasone nasal spray 50 mcg 2 sprays to both nares daily. 9. Heparin 5000 units subcutaneous every 8 hours. 10. Lorazepam 0.5 mg twice daily as needed for anxiety. 11. Methadone 20 mg by mouth at 9 a.m. and 2 p.m. and 10 mg by mouth at bedtime. 12. Flagyl 500 mg IV twice daily. 13. Singulair 10 mg by mouth daily at bedtime. 14. Zofran 4 mg IV every 4 hours as needed for nausea. 15. Percocet 5/325 one tablet by mouth every 3 hours as needed for pain. 16. Protonix 40 mg by mouth daily. 17. Lyrica 75 mg by mouth twice daily. 18. Senokot 1 tablet by mouth twice daily as needed for constipation. 19. Fleet Enema 1 bottle per rectum daily as needed for constipation. 20. Trazodone 300 mg by mouth at bedtime. ALLERGIES: NICOTINE PATCH, OMEPRAZOLE, TRAMADOL. FAMILY HISTORY: She denies any family history of recurrent infection, coronary artery disease, diabetes mellitus. Father with a history of prostate cancer. Mother with a history of breast cancer. SOCIAL HISTORY: She reports drinking alcohol. Her last drink was 2 beers on the day prior to admission. She occasionally uses marijuana and cocaine. She denies any IV drug use. REVIEW OF SYSTEMS: I performed a 10-point review of systems. All the pertinent positives and negatives are mentioned in the history of present illness. The remaining review of systems is negative. She denies any recent travel. PHYSICAL EXAM: Vital Signs: Temperature 98.4, heart rate 64, respiratory rate 16, O2 sat 96% on 2 L via nasal cannula, blood pressure 98/55. General Appearance: The patient is alert, pleasant, appears to be in no acute distress. Head: Normocephalic, atraumatic. ENT: Pupils are equal and reactive to light. Extraocular movements are intact. Mucous membranes are moist. No thrush. Neck: Supple. No lymphadenopathy. Neurological: Alert and oriented x4. Cranial nerves II through XII are grossly intact. No sensation to the left lower leg. Cardiovascular: Regular rate and rhythm. S1, S2 present. No murmurs, rubs, or gallops heard. Respiratory: No accessory muscle use. Lungs are clear to auscultation bilaterally. Abdomen: Bowel sounds present. Abdomen is soft, nontender, nondistended. Extremities: No lower extremity edema. Musculoskeletal: No clubbing or cyanosis noted. The patient exhibits good strength in all extremities, with the exception of weakness to the left lower extremity. She is unable to dorsi or plantar flex on the left lower extremity. Psychological: Calm and cooperative. Skin: No rashes or abnormalities seen on the exposed skin. She has a wound VAC in place to the plantar aspect of her left foot. DIAGNOSTIC STUDIES/LAB DATA: Sodium 141, potassium 4.0, chloride 107, CO2 of 27 , BUN 13, creatinine 0.65, glucose 129. White blood cell count 9.3, hemoglobin 11.0, hematocrit 33, platelet count 439. Preliminary wound cultures with Haemophilus parainfluenzae in the left foot and alcaligenes species, Providencia rettgeri, Peptoniphilus asaccharolyticus, Staph aureus positive. Blood cultures were no growth on day 4. Please see impression and recommendations outlined above. Thank you for asking us to see Ms. Trujillo in consultation. TIME SPENT: Time spent for this consultation was approximately 45 minutes, greater than half of that was spent with the patient discussing medications, past medical history, the events leading to her arrival, and performing a physical examination. The case has been reviewed with the attending, Dr. Shelby, who agrees with the plan of care. Reviewed by DEB PUGA 01/09/19 1142 [id number]/[facility] #: [id number] JAYLENE
[2019-01-08] MEDS: traZODone TAB* 100 MG PO SCH (21:32)
[2019-01-08] MEDS: Senna TAB PO PRN (21:32)
[2019-01-08] MEDS: Docusate CAP* 100 MG PO PRN (21:32)
[2019-01-08] MEDS: Montelukast Sodium TAB* 10 MG PO SCH (21:33)
[2019-01-09] MEDS: oxyCODONE/Acetamin 5/325 MG* TAB PO PRN ×5 (02:51→21:52)
[2019-01-09] MEDS: Heparin VIAL(*) 5000 UNITS/ML VIAL (FIVE THOUSAND) SUBCUT SCH ×3 (06:15→20:09)
[2019-01-09 06:26] LABS: Hematocrit 32 % (33-41); Hemoglobin 10.7 g/dL (12.0-16.0); Mean Corpuscular HGB Conc 34 g/dL (31-36); Mean Corpuscular Hemoglobin 27 pg (27-31); Mean Corpuscular Volume 81 fL (80-97); Mean Platelet Volume 8.3 fL (7.4-10.4); Platelet Count 372 10^3/uL (150-450); Red Blood Count 3.97 10^6 /uL (3.70-4.87); Red Cell Distribution Width 15 % (10.5-15); White Blood Count 9.8 10^3/uL (3.5-10.8)
[2019-01-09 06:55] LABS: BUN/Creatinine Ratio 16.4 (8-20); Calcium 8.6 mg/dL (8.6-10.3); EGFR African American 114.7 (>60); EGFR Non-African American 94.8 (>60); Potassium 3.8 mmol/L (3.5-5.0)
[2019-01-09] MEDS: Pregabalin CAP(*) 25 MG PO SCH ×2 (08:44→20:08)
[2019-01-09] MEDS: Methadone TAB* 10 MG PO SCH ×3 (08:45→20:08)
[2019-01-09] MEDS: Docusate CAP* 100 MG PO PRN (08:46)
[2019-01-09] MEDS: Pantoprazole TAB * 40 MG TAB PO SCH (08:46)
[2019-01-09] MEDS: FLUoxetine CAP* 10 MG PO SCH (08:46)
[2019-01-09] MEDS: Senna TAB PO PRN (08:46)
[2019-01-09] MEDS: Fluticasone NASAL SPRAY 50MCG* 16 gm SPRAY BTL BOTH NARES SCH (08:46)
[2019-01-09] MEDS: metroNIDAZOLE IV 500 MG/100ML* 500 MG/100 ML BAG IVPB SCH ×2 (08:47→20:09)
[2019-01-09] MEDS: Cetirizine* 10 MG TAB PO SCH (08:54)
--- NOTE | 2019-01-09 10:08 | PN ---
Progress Note - Progress Note Date of Service: 01/09/19 SOAP: Subjective: CC: Left foot infection HPI: Ms. Trujillo is a 48 yo female with PMH significant for polysubstance abuse, and history of left lower extremity compartment syndrome in 09/2018 with complicated postoperative course who presented to the hospital with complaints of SI and left foot wound. Denies fever, chills, shortness of breath, chest discomfort, N/ V/D. She reports constipation, but states that she moved her bowels yesterday. Reports a 4/10 left foot pain. Objective: Vital Signs - 8 hr 01/09/19 01/09/19 01/09/19 02:51 04:38 05:00 Temperature 98.1 F Pulse Rate 64 Respiratory 18 18 18 Rate Blood Pressure 100/59 (mmHg) O2 Sat by Pulse 95 Oximetry 01/09/19 01/09/19 01/09/19 07:22 08:00 08:16 Temperature 98.0 F Pulse Rate 59 Respiratory 16 16 16 Rate Blood Pressure 100/59 (mmHg) O2 Sat by Pulse 93 93 Oximetry Physical Exam: General: NAD, laying in bed Neurological: Alert and Oriented x3 HEENT: No thrush, moist MM Cardiovascular: Heart rate regular Respiratory: Lung clear bilateral Abdominal: Bowel sounds present; ABD soft, non tender and non distended Skin: Wound vac to left foot, no rashes Laboratory Results - last 24 hr 01/09/19 01/09/19 06:00 06:00 WBC 9.8 RBC 3.97 Hgb 10.7 L Hct 32 L MCV 81 MCH 27 MCHC 34 RDW 15 Plt Count 372 MPV 8.3 Sodium 141 Potassium 3.8 Chloride 106 Carbon Dioxide 29 Anion Gap 6 BUN 11 Creatinine 0.67 Est GFR ( Amer) 114.7 Est GFR (Non-Af Amer) 94.8 BUN/Creatinine Ratio 16.4 Glucose 93 Calcium 8.6 Microbiology 01/03/19 21:08 Aerobic Blood Culture - Final Blood Venous No Growth Day 5 Anaerobic Blood Culture - Final No Growth Day 5 01/03/19 21:08 Aerobic Blood Culture - Final Blood Venous No Growth Day 5 Anaerobic Blood Culture - Final No Growth Day 5 01/04/19 16:45 Anaerobic Culture - Preliminary Wound Prevotella Melaninogenica Acid Fast Bacilli Smear - Final 01/04/19 00:37 Gram Stain - Final Foot Left Wound Culture - Final Alcaligenes Species Providencia Rettgeri Peptoniphilus Asaccharolyticus Normal Rody 01/04/19 16:45 Gram Stain - Final Foot Left Wound Culture - Final Haemophilus Parainfluenzae Normal Rody 01/04/19 01:24 Skin and Soft Tissue MRSA/MSSA (PCR - Final Foot Left Mrsa Negative S.aureus Positive Assessment: 1. Left foot infection. The wound was located near the fifth metatarsal. MRI shows osteomyelitis at the fourth metatarsal. Due to the close proximity of the wound and the MRI reading of the possibility of osteomyelitis at the head of the fourth metatarsal and proximal phalanx, this likely represents acute osteomyelitis. The patient has multiple organisms growing in her wound cultures including Haemophilus parainfluenzae, Staphylococcus aureus, alcaligenes species, Providencia rettgeri, Peptoniphilus asaccharolyticus, methicillin-resistant Staphylococcus aureus negative. Anaerobic cultures with prevotella Melaninogenica. Blood cultures with no growth to date. S/P left foor I+D and placement of wound vac on 01/04/[address] Appiah. S/P left foot wound debridement and wound vac dressing change on 01/07/[address] Wen. 2. Chronic pain. 3. Anxiety/depression with suicidal ideation on admission. Plan: Continue ceftriaxone 1 g IV daily in addition to Flagyl 500 mg twice daily. She will need 6 weeks of IV antibiotics to treat her osteomyelitis, day . Further recommendations based on final wound cultures.
--- NOTE | 2019-01-09 12:40 | PN ---
Progress Note - Progress Note Date of Service: 01/09/19 SOAP: Subjective: []Pt seen at bedside, feels well. Reports vac has been beeping and screen error states there is a blockage. Denies fever, chills, CP, SOB, dizziness, nausea. Objective: [] General: NAD LLE: Foot is warm, pale appearing. Vac with good suction though continues to report error message, replaced canister this morning, did not resolve error message. Vac sponge changed. Wound measures 3x3 cm, small amount of bleeding, granulation tissue at base, tendon exposed. No purulence, no erythema surrounding the wound. Superficial ulceration of plantar aspect of great toe, no erythema and no discharge. No sensation of foot. Assessment: []sp debridement of forefoot ulcer and vac change Plan: [] NWB LLE Not a candidate for revascularization. Anticipate OR for achilles release and vac change vs CHRIS, Dr Appiah to discuss with patient Vac changed 01/09: continue vac changes Q 3 days, this can be done at bedside. Vital Signs Temp 97.9 F 01/09/19 11:15 Pulse 59 01/09/19 11:15 Resp 18 01/09/19 11:15 BP 98/60 01/09/19 11:15 Pulse Ox 97 01/09/19 11:15 Intake & Output 01/08/19 01/09/19 01/09/19 18:59 06:59 18:59 Intake Total 750 930 240 Output Total 0 Balance 750 930 240 Intake: IV Fluids 100 20 ABX - FLAGYL 100 NS (0.9%) 20 IVPB 50 150 ABX 50 ABX - FLAGYL 100 ceftriaxone 50 Oral 600 760 240 Output: Urine 0 Other: Estimated Void Large Medium # Bowel Movements 1 0 Estimated Stool Amount Large # Voids 1 1 Laboratory Last Values WBC 9.8 10^3/uL (3.5-10.8) 01/09/19 06:00 RBC 3.97 10^6 /uL (3.70-4.87) 01/09/19 06:00 Hgb 10.7 g/dL (12.0-16.0) L 01/09/19 06:00 Hct 32 % (33-41) L 01/09/19 06:00 MCV 81 fL (80-97) 01/09/19 06:00 MCH 27 pg (27-31) 01/09/19 06:00 MCHC 34 g/dL (31-36) 01/09/19 06:00 RDW 15 % (10.5-15) 01/09/19 06:00 Plt Count 372 10^3/uL (150-450) 01/09/19 06:00 MPV 8.3 fL (7.4-10.4) 01/09/19 06:00 Neut % (Auto) 70.5 % 01/08/19 06:03 Lymph % (Auto) 21.1 % 01/08/19 06:03 [place] % (Auto) 7.8 % 01/08/19 06:03 Eos % (Auto) 0 % 01/08/19 06:03 Baso % (Auto) 0.6 % 01/08/19 06:03 Absolute Neuts (auto) 6.6 10^3/ul (1.5-7.7) 01/08/19 06:03 Absolute Lymphs (auto) 2.0 10^3/ul (1.0-4.8) 01/08/19 06:03 Absolute Monos (auto) 0.7 10^3/ul (0-0.8) 01/08/19 06:03 Absolute Eos (auto) 0 10^3/ul (0-0.6) 01/08/19 06:03 Absolute Basos (auto) 0.1 10^3/ul (0-0.2) 01/08/19 06:03 Absolute Nucleated RBC 0 10^3/ul 01/08/19 06:03 Nucleated RBC % 0 01/08/19 06:03 ESR > 120 mm/Hr (0-19) H 01/03/19 21:09 Sodium 141 mmol/L (135-145) 01/09/19 06:00 Potassium 3.8 mmol/L (3.5-5.0) 01/09/19 06:00 Chloride 106 mmol/L (101-111) 01/09/19 06:00 Carbon Dioxide 29 mmol/L (22-32) 01/09/19 06:00 Anion Gap 6 mmol/L (2-11) 01/09/19 06:00 BUN 11 mg/dL (6-24) 01/09/19 06:00 Creatinine 0.67 mg/dL (0.51-0.95) 01/09/19 06:00 Est GFR ( Amer) 114.7 (>60) 01/09/19 06:00 Est GFR (Non-Af Amer) 94.8 (>60) 01/09/19 06:00 BUN/Creatinine Ratio 16.4 (8-20) 01/09/19 06:00 Glucose 93 mg/dL (70-100) 01/09/19 06:00 Lactic Acid 1.4 mmol/L (0.5-2.0) 01/08/19 06:03 Calcium 8.6 mg/dL (8.6-10.3) 01/09/19 06:00 Magnesium 2.0 mg/dL (1.9-2.7) 01/07/19 07:06 Total Bilirubin 0.30 mg/dL (0.2-1.0) 01/03/19 21:09 AST 22 U/L (13-39) 01/03/19 21:09 ALT 15 U/L (7-52) 01/03/19 21:09 Alkaline Phosphatase 256 U/L (34-104) H 01/03/19 21:09 C-Reactive Protein 78.29 mg/L (<8.01) H 01/03/19 21:09 Total Protein 7.5 g/dL (6.4-8.9) 01/03/19 21:09 Albumin 3.9 g/dL (3.2-5.2) 01/03/19 21:09 Globulin 3.6 g/dL (2-4) 01/03/19 21:09 Albumin/Globulin Ratio 1.1 (1-3) 01/03/19 21:09 TSH 0.79 mcIU/mL (0.34-5.60) 01/03/19 21:09 Beta HCG, Quant 1.24 mIU/mL 01/03/19 21:09 Salicylates < 2.50 mg/dL (<30) 01/03/19 21:09 Urine Opiates Screen None detected (None Detect) 01/04/19 01:45 Acetaminophen < 15 mcg/mL 01/03/19 21:09 Ur Barbiturates Screen None detected (None Detect) 01/04/19 01:45 Ur Phencyclidine Scrn None detected (None Detect) 01/04/19 01:45 Ur Amphetamines Screen Presumptive positive (None Detect) A 01/04/19 01:45 U Benzodiazepines Scrn None detected (None Detect) 01/04/19 01:45 Urine Cocaine Screen Presumptive positive (None Detect) A 01/04/19 01:45 U Cannabinoids Screen Presumptive positive (None Detect) A 01/04/19 01:45 Serum Alcohol < 10 mg/dL (<10) 01/03/19 21:09
--- NOTE | 2019-01-09 14:53 | PN ---
Subjective Date of Service: 01/09/19 Interval History: Feeling pretty good, pain is controlled. Appetite is good but she does admit constipation. Had an enema yesterday that was successful. Would like to discuss preventing constipation that gets so bad. Normally since being on methadone she moves her bowels 2x/week and it is always hard and painful. No other complaints. Objective Active Medications: Acetaminophen (Tylenol Tab*) 650 mg PO Q4H PRN PRN Reason: FEVER/PAIN Al Hydrox/Mg Hydrox/Simethicone (Maalox Plus*) 30 ml PO Q6H PRN PRN Reason: INDIGESTION Last Admin: 01/08/19 18:14 Dose: 30 ml Albuterol (Ventolin Hfa Inhaler*) 2 puff INH Q4H PRN PRN Reason: SOB/WHEEZING Last Admin: 01/08/19 19:46 Dose: 2 puff Cetirizine HCl (Zyrtec*) 10 mg PO DAILY [facility] Last Admin: 01/09/19 08:54 Dose: 10 mg Docusate Sodium (Colace Cap*) 100 mg PO BID PRN PRN Reason: CONSTIPATION Last Admin: 01/09/19 08:46 Dose: 100 mg Fluoxetine HCl (Prozac Cap*) 30 mg PO DAILY [facility] Last Admin: 01/09/19 08:46 Dose: 30 mg Fluticasone Propionate (Flonase Nasal [place] 50mcg*) 2 spray BOTH NARES DAILY [facility] Last Admin: 01/09/19 08:46 Dose: 2 spray Heparin Sodium (Porcine) (Heparin Vial(*)) 5,000 units SUBCUT Q8HR [facility] Last Admin: 01/09/19 14:23 Dose: 5,000 units Metronidazole/Sodium Chloride (Flagyl 500 Mg Ivpb*) 500 mg in 100 mls @ 100 mls /hr IVPB 0830,2030 [facility] Last Admin: 01/09/19 08:47 Dose: 100 mls/hr Ceftriaxone Sodium 1 gm/ (Sodium Chloride) 50 mls @ 200 mls/hr IVPB Q24H [facility] Last Admin: 01/08/19 19:19 Dose: 200 mls/hr Lorazepam (Ativan Tab(*)) 0.5 mg PO BID PRN PRN Reason: ANXIETY Last Admin: 01/07/19 16:57 Dose: 0.5 mg Methadone HCl (Dolophine Tab*) 10 mg PO BEDTIME [facility] Last Admin: 01/08/19 21:33 Dose: 10 mg Methadone HCl (Dolophine Tab*) 20 mg PO 0900,1400 [facility] Last Admin: 01/09/19 14:23 Dose: 20 mg Montelukast Sodium (Singulair Tab*) 10 mg PO BEDTIME [facility] Last Admin: 01/08/19 21:33 Dose: 10 mg Ondansetron HCl (Zofran Inj*) 4 mg IV Q4H PRN PRN Reason: NAUSEA/VOMITING Oxycodone/Acetaminophen (Percocet 5/325 Tab*) 1 tab PO Q3H PRN PRN Reason: PAIN - MILD TO MODERATE Last Admin: 01/09/19 14:37 Dose: 1 tab Pantoprazole Sodium (Protonix Tab*) 40 mg PO DAILY [facility] Last Admin: 01/09/19 08:46 Dose: 40 mg Pregabalin (Lyrica Cap(*)) 75 mg PO BID [facility] Last Admin: 01/09/19 08:44 Dose: 75 mg Senna (Senokot Tab*) 1 tab PO BID PRN PRN Reason: CONSTIPATION Last Admin: 01/09/19 08:46 Dose: 1 tab Sodium Biphosphate/Sodium Phosphate (Fleet Enema*) 1 bottle OR DAILY PRN PRN Reason: CONSTIPATION Last Admin: 01/08/19 13:58 Dose: 1 bottle Trazodone HCl (Desyrel Tab*) 300 mg PO BEDTIME [facility] Last Admin: 01/08/19 21:32 Dose: 300 mg Vital Signs - 8 hr 01/09/19 01/09/19 01/09/19 07:22 08:00 08:16 Temperature 98.0 F Pulse Rate 59 Respiratory 16 16 16 Rate Blood Pressure 100/59 (mmHg) O2 Sat by Pulse 93 93 Oximetry 01/09/19 01/09/19 01/09/19 08:44 08:45 10:58 Temperature Pulse Rate Respiratory 18 18 16 Rate Blood Pressure (mmHg) O2 Sat by Pulse Oximetry 01/09/19 01/09/19 01/09/19 10:59 11:00 11:15 Temperature 97.9 F Pulse Rate 59 Respiratory 16 16 18 Rate Blood Pressure 98/60 (mmHg) O2 Sat by Pulse 97 Oximetry 01/09/19 01/09/19 14:23 14:37 Temperature Pulse Rate Respiratory 16 16 Rate Blood Pressure (mmHg) O2 Sat by Pulse Oximetry Oxygen Devices in Use Now: Nasal Cannula Appearance: alert, well appearing, resting in bed Eyes: No Scleral Icterus Ears/Nose/Mouth/Throat: NL Teeth, Lips, Gums Neck: NL Appearance and Movements; NL JVP Respiratory: Symmetrical Chest Expansion and Respiratory Effort, Clear to Auscultation Cardiovascular: NL Sounds; No Murmurs; No JVD, RRR Abdominal: NL Sounds; No Tenderness; No Distention Lymphatic: No Cervical Adenopathy Extremities: - - wound vac in place, changed by Alva this morning, I did not undress Skin: No Rash or Ulcers Neurological: Alert and Oriented x 3 Result Diagrams: 01/09/19 06:00 01/09/19 06:00 Additional Lab and Data: Lab Results 01/03/19 01/03/19 01/03/19 Range/Units 21:09 21:09 21:09 WBC 11.0 H (3.5-10.8) 10^3/uL RBC 4.51 (3.70-4.87) 10^6 /uL Hgb 12.1 (12.0-16.0) g/dL Hct 36 (33-41) % MCV 80 (80-97) fL MCH 27 (27-31) pg MCHC 34 (31-36) g/dL RDW 14 (10.5-15) % Plt Count 533 H (150-450) 10^3/uL MPV 7.9 (7.4-10.4) fL Neut % (Auto) 64.7 % Lymph % (Auto) 21.3 % [place] % (Auto) 12.7 % Eos % (Auto) 0.5 % Baso % (Auto) 0.8 % Absolute Neuts (auto) 7.1 (1.5-7.7) 10^3/ul Absolute Lymphs (auto) 2.3 (1.0-4.8) 10^3/ul Absolute Monos (auto) 1.4 H (0-0.8) 10^3/ul Absolute Eos (auto) 0.1 (0-0.6) 10^3/ul Absolute Basos (auto) 0.1 (0-0.2) 10^3/ul Absolute Nucleated RBC 0 10^3/ul Nucleated RBC % 0 ESR Pending Sodium 136 (135-145) mmol/L Potassium 3.0 L (3.5-5.0) mmol/L Chloride 96 L (101-111) mmol/L Carbon Dioxide 28 (22-32) mmol/L Anion Gap 12 H (2-11) mmol/L BUN 8 (6-24) mg/dL Creatinine 0.78 (0.51-0.95) mg/dL Est GFR ( Amer) 96.2 (>60) Est GFR (Non-Af Amer) 79.5 (>60) BUN/Creatinine Ratio 10.3 (8-20) Glucose 78 (70-100) mg/dL Lactic Acid 0.9 (0.5-2.0) mmol/L Calcium 9.5 (8.6-10.3) mg/dL Total Bilirubin 0.30 (0.2-1.0) mg/dL AST 22 (13-39) U/L ALT 15 (7-52) U/L Alkaline Phosphatase 256 H (34-104) U/L C-Reactive Protein Pending Total Protein 7.5 (6.4-8.9) g/dL Albumin 3.9 (3.2-5.2) g/dL Globulin 3.6 (2-4) g/dL Albumin/Globulin Ratio 1.1 (1-3) TSH 0.79 (0.34-5.60) mcIU/mL Beta HCG, Quant 1.24 mIU/mL Salicylates < 2.50 (<30) mg/dL Acetaminophen < 15 mcg/mL Serum Alcohol < 10 (<10) mg/dL Microbiology and Other Data: Microbiology 01/04/19 00:37 Gram Stain - Final Foot Left 01/04/19 01:24 Skin and Soft Tissue MRSA/MSSA (PCR - Final Foot Left Mrsa Negative S.aureus Positive Assess/Plan/Problems-Billing Assessment: 47 yo F with H polysubstance abuse ,hepatitis C , anxiety/ depression, with recent history of left leg compartment syndrome after syncope and collapse on 09/18 potential overdose, rhabdo, s/p 4 compartment fasciotomies, and multiple I&Ds now living alone presented back to the ED on with SI and was noted to have L foot wound - Patient Problems (1) Constipation Current Visit: Yes Status: Acute Code(s): K59.00 - CONSTIPATION, UNSPECIFIED SNOMED Code(s): 25821571 Comment: will add daily miralax (2) Osteomyelitis Current Visit: Yes Status: Acute Code(s): M86.9 - OSTEOMYELITIS, UNSPECIFIED SNOMED Code(s): 37198104 Comment: acute s/p debridement in OR on 01/04/19-now VAC in place cont Cefepime,Flagyl. MRSA wound cx neg-d/c Vanc Wound cx positive for Providencia, Haemophilus, Prevotella, Peptoniphilus ID following; will await final recommendations re: shelter abx plans (3) Peripheral arterial disease Current Visit: Yes Status: Acute Code(s): I73.9 - PERIPHERAL VASCULAR DISEASE, UNSPECIFIED SNOMED Code(s): 048847136 Comment: aterior tibial and dorsalis pedis with very poor flow but not able to be stented concern for wound healing potential (4) Chronic, continuous use of opioids Current Visit: No Status: Acute Code(s): F11.90 - OPIOID USE, UNSPECIFIED, UNCOMPLICATED SNOMED Code(s): 531756783 Comment: cont home methadone, the dose was lowered due to hypotension on -pt agreed plus prn percocet Status and Disposition: inpatient
--- NOTE | 2019-01-09 14:57 | PN ---
Subjective - Subjective Date of Service: 01/09/19 Service Type: [id number] Hosp care 15 min low complexity Subjective: Yuki is in a good mood, although she is puzzled by why she feels so tired all the time. We briefly discuss how infections can make a person exhausted. She states she is trying to stay positive. She is attending to her ADLs. She is not currently experiencing suicidal or homicidal ideation, but she reserves the idea that she might have thoughts upon leaving and going home and having to navigate without assistance. Objective - General Observations Appearance: Disheveled Appears Stated Age: No - older Stature: Overweight Posture: WNL Eye Contact: Average Behavior/Activity: WNL - Interaction Observations Attitude Towards Examiner: Cooperative Stated Mood: Dysphoric Affect: Full Speech Pattern/Tone: Clear, Loud Volume Thought Process: Coherent Perception: WNL Thought Content: WNL Hallucination Type: None Delusion Type: None - Cognitive Function Orientation: A&O x 4 Level of Consciousness: Awake, Alert, Appropriate Cognition: WNL Estimated Intelligence: Normal Insight: WNL Judgment Within Normal Limits: Yes - Medication Compliance Cooperative with Inpatient Medication Regimen: Yes Plan - Plan Treatment Plan: Name: EDD LOVING Birthdate: 1970 [id number] Medications: Current Medications Acetaminophen (Tylenol Tab*) 650 mg PO Q4H PRN PRN Reason: FEVER/PAIN Al Hydrox/Mg Hydrox/Simethicone (Maalox Plus*) 30 ml PO Q6H PRN PRN Reason: INDIGESTION Last Admin: 01/08/19 18:14 Dose: 30 ml Albuterol (Ventolin Hfa Inhaler*) 2 puff INH Q4H PRN PRN Reason: SOB/WHEEZING Last Admin: 01/08/19 19:46 Dose: 2 puff Cetirizine HCl (Zyrtec*) 10 mg PO DAILY [facility] Last Admin: 01/09/19 08:54 Dose: 10 mg Docusate Sodium (Colace Cap*) 100 mg PO BID PRN PRN Reason: CONSTIPATION Last Admin: 01/09/19 08:46 Dose: 100 mg Fluoxetine HCl (Prozac Cap*) 30 mg PO DAILY [facility] Last Admin: 01/09/19 08:46 Dose: 30 mg Fluticasone Propionate (Flonase Nasal [place] 50mcg*) 2 spray BOTH NARES DAILY [facility] Last Admin: 01/09/19 08:46 Dose: 2 spray Heparin Sodium (Porcine) (Heparin Vial(*)) 5,000 units SUBCUT Q8HR [facility] Last Admin: 01/09/19 14:23 Dose: 5,000 units Metronidazole/Sodium Chloride (Flagyl 500 Mg Ivpb*) 500 mg in 100 mls @ 100 mls /hr IVPB 0830,2030 [facility] Last Admin: 01/09/19 08:47 Dose: 100 mls/hr Ceftriaxone Sodium 1 gm/ (Sodium Chloride) 50 mls @ 200 mls/hr IVPB Q24H [facility] Last Admin: 01/08/19 19:19 Dose: 200 mls/hr Lorazepam (Ativan Tab(*)) 0.5 mg PO BID PRN PRN Reason: ANXIETY Last Admin: 01/07/19 16:57 Dose: 0.5 mg Methadone HCl (Dolophine Tab*) 10 mg PO BEDTIME [facility] Last Admin: 01/08/19 21:33 Dose: 10 mg Methadone HCl (Dolophine Tab*) 20 mg PO 0900,1400 [facility] Last Admin: 01/09/19 14:23 Dose: 20 mg Montelukast Sodium (Singulair Tab*) 10 mg PO BEDTIME [facility] Last Admin: 01/08/19 21:33 Dose: 10 mg Ondansetron HCl (Zofran Inj*) 4 mg IV Q4H PRN PRN Reason: NAUSEA/VOMITING Oxycodone/Acetaminophen (Percocet 5/325 Tab*) 1 tab PO Q3H PRN PRN Reason: PAIN - MILD TO MODERATE Last Admin: 01/09/19 14:37 Dose: 1 tab Pantoprazole Sodium (Protonix Tab*) 40 mg PO DAILY [facility] Last Admin: 01/09/19 08:46 Dose: 40 mg Pregabalin (Lyrica Cap(*)) 75 mg PO BID [facility] Last Admin: 01/09/19 08:44 Dose: 75 mg Senna (Senokot Tab*) 1 tab PO BID PRN PRN Reason: CONSTIPATION Last Admin: 01/09/19 08:46 Dose: 1 tab Sodium Biphosphate/Sodium Phosphate (Fleet Enema*) 1 bottle [place] DAILY PRN PRN Reason: CONSTIPATION Last Admin: 01/08/19 13:58 Dose: 1 bottle Trazodone HCl (Desyrel Tab*) 300 mg PO BEDTIME [facility] Last Admin: 01/08/19 21:32 Dose: 300 mg
[2019-01-09] MEDS: Polyethylene Glycol 3350* 17 GM PACKET PO SCH (15:26)
[2019-01-09] MEDS: cefTRIAXone(*) 1 GM in NS 0.9% 50 ML* 50 ML IVPB SCH (18:33)
[2019-01-09] MEDS: Al Hydrox/Mg Hydrox/Simet LIQ* 30 ML UDC PO PRN (20:08)
[2019-01-09] MEDS: traZODone TAB* 100 MG PO SCH (20:08)
[2019-01-09] MEDS: Montelukast Sodium TAB* 10 MG PO SCH (20:45)
[2019-01-10] MEDS: Acetaminophen TAB* 325 MG PO PRN (00:26)
[2019-01-10] MEDS: Heparin VIAL(*) 5000 UNITS/ML VIAL (FIVE THOUSAND) SUBCUT SCH ×3 (04:42→20:33)
[2019-01-10] MEDS: oxyCODONE/Acetamin 5/325 MG* TAB PO PRN ×5 (04:43→20:35)
[2019-01-10] MEDS: Docusate CAP* 100 MG PO PRN ×2 (08:34→20:34)
[2019-01-10] MEDS: Senna TAB PO PRN ×2 (08:34→20:34)
[2019-01-10] MEDS: Cetirizine* 10 MG TAB PO SCH (10:18)
[2019-01-10] MEDS: metroNIDAZOLE IV 500 MG/100ML* 500 MG/100 ML BAG IVPB SCH ×2 (10:18→20:33)
[2019-01-10] MEDS: Pantoprazole TAB * 40 MG TAB PO SCH (10:19)
[2019-01-10] MEDS: Methadone TAB* 10 MG PO SCH ×3 (10:19→20:35)
[2019-01-10] MEDS: Pregabalin CAP(*) 25 MG PO SCH ×2 (10:19→20:34)
[2019-01-10] MEDS: FLUoxetine CAP* 10 MG PO SCH (10:20)
[2019-01-10] MEDS: Polyethylene Glycol 3350* 17 GM PACKET PO SCH (10:21)
[2019-01-10] MEDS: Fluticasone NASAL SPRAY 50MCG* 16 gm SPRAY BTL BOTH NARES SCH (10:21)
--- NOTE | 2019-01-10 10:22 | PN ---
Progress Note - Progress Note Date of Service: 01/10/19 SOAP: Subjective: CC: Left foot infection HPI: Ms. Trujillo is a 48 yo female with PMH significant for polysubstance abuse, and history of a left lower extremity compartment syndrome in 09/2018 with complicated postoperative course who presented to the hospital with complaints of SI and left foot wound. Denies fever, chills, shortness of breath, chest discomfort, N/V/D. She reports constipation, states that she last moved her bowels 2-3 days ago. Reports that the left foot pain is controlled. She states that she talked with Dr. Appiah yesterday and is considering a BKA. Objective: Vital Signs - 8 hr 01/10/19 01/10/19 01/10/19 03:01 04:43 07:25 Temperature 98.2 F 98.2 F Pulse Rate 62 57 Respiratory 18 16 18 Rate Blood Pressure 95/59 97/46 (mmHg) O2 Sat by Pulse 94 96 Oximetry 01/10/19 01/10/19 01/10/19 08:00 08:18 08:34 Temperature 98.6 F Pulse Rate 56 Respiratory 16 40 16 Rate Blood Pressure 96/58 (mmHg) O2 Sat by Pulse 96 96 Oximetry Physical Exam: General: NAD, laying in bed Neurological: Alert and Oriented x 4 HEENT: No thrush Cardiovascular: Heart rate regular, no murmur Respiratory: Lung sounds clear Abdominal: Bowel sounds present; ABD soft, non tender and non distended Skin: Wound vac to the left LE, no rash Microbiology 01/04/19 16:45 Anaerobic Culture - Final Wound Prevotella Melaninogenica Acid Fast Bacilli Smear - Final 01/03/19 21:08 Aerobic Blood Culture - Final Blood Venous No Growth Day 5 Anaerobic Blood Culture - Final No Growth Day 5 01/03/19 21:08 Aerobic Blood Culture - Final Blood Venous No Growth Day 5 Anaerobic Blood Culture - Final No Growth Day 5 01/04/19 00:37 Gram Stain - Final Foot Left Wound Culture - Final Alcaligenes Species Providencia Rettgeri Peptoniphilus Asaccharolyticus Normal Rody 01/04/19 16:45 Gram Stain - Final Foot Left Wound Culture - Final Haemophilus Parainfluenzae Normal Rody 01/04/19 01:24 Skin and Soft Tissue MRSA/MSSA (PCR - Final Foot Left Mrsa Negative S.aureus Positive Assessment: 1. Left foot infection with osteomyelitis. Multiple organisms growing in her wound cultures including Haemophilus parainfluenzae, Staphylococcus aureus, alcaligenes species, Providencia rettgeri, Peptoniphilus asaccharolyticus, methicillin-resistant Staphylococcus aureus negative. Anaerobic cultures with prevotella Melaninogenica. Blood cultures with no growth to date. S/P left foor I+D and placement of wound vac on 01/04/[address] Appiah. S/P left foot wound debridement and wound vac dressing change on 01/07/[address] Wen. Afebrile. No leukocytosis. 2. Chronic pain. 3. Anxiety/depression with suicidal ideation on admission. Plan: Continue ceftriaxone 1 g IV daily in addition to Flagyl 500 mg twice daily. She will need 6 weeks of IV antibiotics to treat her osteomyelitis, day . She will need 2 weeks of Flagyl, day 714.
--- NOTE | 2019-01-10 10:41 | PN ---
Progress Note - Progress Note Date of Service: 01/10/19 SOAP: Subjective: []Pt seen at bedside today. She desires a left below knee amputation. Denies pain of LLE, fever, chills, nausea, dizziness, CP or SOB. Objective: [] General: NAD LLE: Foot is warm, pale appearing. Vac with good suction. No sensation of foot. Calves supple and nontender without erythema, edema or palpable cords Assessment: []S/P debridement of left forefoot ulcer. last vac change 01/09 Plan: [] NWB LLE Vac changed 01/09: continue vac changes Q 3 days Patient desires left BKA rather than an achilles lengthening. The plan will be for patient to go to the OR Tuesday 01/[address] Appiah. Vital Signs Temp 98.6 F 01/10/19 08:18 Pulse 56 01/10/19 08:18 Resp 16 01/10/19 10:19 BP 96/58 01/10/19 08:18 Pulse Ox 96 01/10/19 08:18 Intake & Output 01/09/19 01/10/19 01/10/19 18:59 06:59 18:59 Intake Total 1340 725 360 Balance 1340 725 360 Intake: IV Fluids 40 NS (0.9%) 40 IVPB 100 205 ABX - FLAGYL 100 150 ceftriaxone 55 Oral 1240 480 360 Other: Estimated Void Medium Large # Bowel Movements 0 0 # Voids 3 1 Laboratory Last Values WBC 9.8 10^3/uL (3.5-10.8) 01/09/19 06:00 RBC 3.97 10^6 /uL (3.70-4.87) 01/09/19 06:00 Hgb 10.7 g/dL (12.0-16.0) L 01/09/19 06:00 Hct 32 % (33-41) L 01/09/19 06:00 MCV 81 fL (80-97) 01/09/19 06:00 MCH 27 pg (27-31) 01/09/19 06:00 MCHC 34 g/dL (31-36) 01/09/19 06:00 RDW 15 % (10.5-15) 01/09/19 06:00 Plt Count 372 10^3/uL (150-450) 01/09/19 06:00 MPV 8.3 fL (7.4-10.4) 01/09/19 06:00 Neut % (Auto) 70.5 % 01/08/19 06:03 Lymph % (Auto) 21.1 % 01/08/19 06:03 [place] % (Auto) 7.8 % 01/08/19 06:03 Eos % (Auto) 0 % 01/08/19 06:03 Baso % (Auto) 0.6 % 01/08/19 06:03 Absolute Neuts (auto) 6.6 10^3/ul (1.5-7.7) 01/08/19 06:03 Absolute Lymphs (auto) 2.0 10^3/ul (1.0-4.8) 01/08/19 06:03 Absolute Monos (auto) 0.7 10^3/ul (0-0.8) 01/08/19 06:03 Absolute Eos (auto) 0 10^3/ul (0-0.6) 01/08/19 06:03 Absolute Basos (auto) 0.1 10^3/ul (0-0.2) 01/08/19 06:03 Absolute Nucleated RBC 0 10^3/ul 01/08/19 06:03 Nucleated RBC % 0 01/08/19 06:03 ESR > 120 mm/Hr (0-19) H 01/03/19 21:09 Sodium 141 mmol/L (135-145) 01/09/19 06:00 Potassium 3.8 mmol/L (3.5-5.0) 01/09/19 06:00 Chloride 106 mmol/L (101-111) 01/09/19 06:00 Carbon Dioxide 29 mmol/L (22-32) 01/09/19 06:00 Anion Gap 6 mmol/L (2-11) 01/09/19 06:00 BUN 11 mg/dL (6-24) 01/09/19 06:00 Creatinine 0.67 mg/dL (0.51-0.95) 01/09/19 06:00 Est GFR ( Amer) 114.7 (>60) 01/09/19 06:00 Est GFR (Non-Af Amer) 94.8 (>60) 01/09/19 06:00 BUN/Creatinine Ratio 16.4 (8-20) 01/09/19 06:00 Glucose 93 mg/dL (70-100) 01/09/19 06:00 Lactic Acid 1.4 mmol/L (0.5-2.0) 01/08/19 06:03 Calcium 8.6 mg/dL (8.6-10.3) 01/09/19 06:00 Magnesium 2.0 mg/dL (1.9-2.7) 01/07/19 07:06 Total Bilirubin 0.30 mg/dL (0.2-1.0) 01/03/19 21:09 AST 22 U/L (13-39) 01/03/19 21:09 ALT 15 U/L (7-52) 01/03/19 21:09 Alkaline Phosphatase 256 U/L (34-104) H 01/03/19 21:09 C-Reactive Protein 78.29 mg/L (<8.01) H 01/03/19 21:09 Total Protein 7.5 g/dL (6.4-8.9) 01/03/19 21:09 Albumin 3.9 g/dL (3.2-5.2) 01/03/19 21:09 Globulin 3.6 g/dL (2-4) 01/03/19 21:09 Albumin/Globulin Ratio 1.1 (1-3) 01/03/19 21:09 TSH 0.79 mcIU/mL (0.34-5.60) 01/03/19 21:09 Beta HCG, Quant 1.24 mIU/mL 01/03/19 21:09 Salicylates < 2.50 mg/dL (<30) 01/03/19 21:09 Urine Opiates Screen None detected (None Detect) 01/04/19 01:45 Acetaminophen < 15 mcg/mL 01/03/19 21:09 Ur Barbiturates Screen None detected (None Detect) 01/04/19 01:45 Ur Phencyclidine Scrn None detected (None Detect) 01/04/19 01:45 Ur Amphetamines Screen Presumptive positive (None Detect) A 01/04/19 01:45 U Benzodiazepines Scrn None detected (None Detect) 01/04/19 01:45 Urine Cocaine Screen Presumptive positive (None Detect) A 01/04/19 01:45 U Cannabinoids Screen Presumptive positive (None Detect) A 01/04/19 01:45 Serum Alcohol < 10 mg/dL (<10) 01/03/19 21:09
[2019-01-10] MEDS: LORazepam TAB(*) 0.5 MG PO PRN (11:44)
[2019-01-10] MEDS: Albuterol HFA INHALER* 8 gm MDI INH PRN (12:13)
[2019-01-10] MEDS ORDERED: NS 0.9% 500 ML* 500 ML IV ONE (12:14)
--- NOTE | 2019-01-10 13:10 | PN ---
Subjective Date of Service: 01/10/19 Interval History: Peyton tells me she wants to get a BKA after her conversation with Dr. Loving yesterday. She feels good today, no complaints. Objective Active Medications: Acetaminophen (Tylenol Tab*) 650 mg PO Q4H PRN PRN Reason: FEVER/PAIN Last Admin: 01/10/19 00:26 Dose: 650 mg Al Hydrox/Mg Hydrox/Simethicone (Maalox Plus*) 30 ml PO Q6H PRN PRN Reason: INDIGESTION Last Admin: 01/09/19 20:08 Dose: 30 ml Albuterol (Ventolin Hfa Inhaler*) 2 puff INH Q4H PRN PRN Reason: SOB/WHEEZING Last Admin: 01/10/19 12:13 Dose: 2 puff Cetirizine HCl (Zyrtec*) 10 mg PO DAILY [facility] Last Admin: 01/10/19 10:18 Dose: 10 mg Docusate Sodium (Colace Cap*) 100 mg PO BID PRN PRN Reason: CONSTIPATION Last Admin: 01/10/19 08:34 Dose: 100 mg Fluoxetine HCl (Prozac Cap*) 30 mg PO DAILY [facility] Last Admin: 01/10/19 10:20 Dose: 30 mg Fluticasone Propionate (Flonase Nasal [place] 50mcg*) 2 spray BOTH NARES DAILY [facility] Last Admin: 01/10/19 10:21 Dose: 2 spray Heparin Sodium (Porcine) (Heparin Vial(*)) 5,000 units SUBCUT Q8HR [facility] Last Admin: 01/10/19 04:42 Dose: 5,000 units Metronidazole/Sodium Chloride (Flagyl 500 Mg Ivpb*) 500 mg in 100 mls @ 100 mls /hr IVPB 0830,2030 [facility] Last Admin: 01/10/19 10:18 Dose: 100 mls/hr Ceftriaxone Sodium 1 gm/ (Sodium Chloride) 50 mls @ 200 mls/hr IVPB Q24H [facility] Last Admin: 01/09/19 18:33 Dose: 200 mls/hr Lorazepam (Ativan Tab(*)) 0.5 mg PO BID PRN PRN Reason: ANXIETY Last Admin: 01/10/19 11:44 Dose: 0.5 mg Methadone HCl (Dolophine Tab*) 10 mg PO BEDTIME [facility] Last Admin: 01/09/19 20:08 Dose: 10 mg Methadone HCl (Dolophine Tab*) 20 mg PO 0900,1400 [facility] Last Admin: 01/10/19 10:19 Dose: 20 mg Montelukast Sodium (Singulair Tab*) 10 mg PO BEDTIME [facility] Last Admin: 01/09/19 20:45 Dose: 10 mg Ondansetron HCl (Zofran Inj*) 4 mg IV Q4H PRN PRN Reason: NAUSEA/VOMITING Oxycodone/Acetaminophen (Percocet 5/325 Tab*) 1 tab PO Q3H PRN PRN Reason: PAIN - MILD TO MODERATE Last Admin: 01/10/19 11:46 Dose: 1 tab Pantoprazole Sodium (Protonix Tab*) 40 mg PO DAILY [facility] Last Admin: 01/10/19 10:19 Dose: 40 mg Polyethylene Glycol/Electrolytes (Miralax*) 17 gm PO DAILY [facility] Last Admin: 01/10/19 10:21 Dose: 17 gm Pregabalin (Lyrica Cap(*)) 75 mg PO BID [facility] Last Admin: 01/10/19 10:19 Dose: 75 mg Senna (Senokot Tab*) 1 tab PO BID PRN PRN Reason: CONSTIPATION Last Admin: 01/10/19 08:34 Dose: 1 tab Sodium Biphosphate/Sodium Phosphate (Fleet Enema*) 1 bottle [place] DAILY PRN PRN Reason: CONSTIPATION Last Admin: 01/08/19 13:58 Dose: 1 bottle Trazodone HCl (Desyrel Tab*) 300 mg PO BEDTIME [facility] Last Admin: 01/09/19 20:08 Dose: 300 mg Vital Signs - 8 hr 01/10/19 01/10/19 01/10/19 07:25 08:00 08:18 Temperature 98.2 F 98.6 F Pulse Rate 57 56 Respiratory 18 16 40 Rate Blood Pressure 97/46 96/58 (mmHg) O2 Sat by Pulse 96 96 96 Oximetry 01/10/19 01/10/19 01/10/19 08:34 08:45 10:19 Temperature Pulse Rate Respiratory 16 16 16 Rate Blood Pressure (mmHg) O2 Sat by Pulse Oximetry 01/10/19 01/10/19 01/10/19 11:17 11:44 11:46 Temperature 97.7 F Pulse Rate 57 Respiratory 20 16 16 Rate Blood Pressure 84/43 (mmHg) O2 Sat by Pulse 96 Oximetry 01/10/19 01/10/19 11:47 12:00 Temperature Pulse Rate Respiratory 16 16 Rate Blood Pressure (mmHg) O2 Sat by Pulse Oximetry Oxygen Devices in Use Now: None Appearance: alert, well appearing Eyes: No Scleral Icterus Ears/Nose/Mouth/Throat: NL Teeth, Lips, Gums Neck: NL Appearance and Movements; NL JVP Respiratory: Symmetrical Chest Expansion and Respiratory Effort, Clear to Auscultation Cardiovascular: NL Sounds; No Murmurs; No JVD, RRR Abdominal: NL Sounds; No Tenderness; No Distention Lymphatic: No Cervical Adenopathy Extremities: - - left leg wrapped in clemencia with vac in place, decreased sensation in toes, decreased cap refill Neurological: Alert and Oriented x 3 Result Diagrams: 01/09/19 06:00 01/09/19 06:00 Additional Lab and Data: Lab Results 01/03/19 01/03/19 01/03/19 Range/Units 21:09 21:09 21:09 WBC 11.0 H (3.5-10.8) 10^3/uL RBC 4.51 (3.70-4.87) 10^6 /uL Hgb 12.1 (12.0-16.0) g/dL Hct 36 (33-41) % MCV 80 (80-97) fL MCH 27 (27-31) pg MCHC 34 (31-36) g/dL RDW 14 (10.5-15) % Plt Count 533 H (150-450) 10^3/uL MPV 7.9 (7.4-10.4) fL Neut % (Auto) 64.7 % Lymph % (Auto) 21.3 % [place] % (Auto) 12.7 % Eos % (Auto) 0.5 % Baso % (Auto) 0.8 % Absolute Neuts (auto) 7.1 (1.5-7.7) 10^3/ul Absolute Lymphs (auto) 2.3 (1.0-4.8) 10^3/ul Absolute Monos (auto) 1.4 H (0-0.8) 10^3/ul Absolute Eos (auto) 0.1 (0-0.6) 10^3/ul Absolute Basos (auto) 0.1 (0-0.2) 10^3/ul Absolute Nucleated RBC 0 10^3/ul Nucleated RBC % 0 ESR Pending Sodium 136 (135-145) mmol/L Potassium 3.0 L (3.5-5.0) mmol/L Chloride 96 L (101-111) mmol/L Carbon Dioxide 28 (22-32) mmol/L Anion Gap 12 H (2-11) mmol/L BUN 8 (6-24) mg/dL Creatinine 0.78 (0.51-0.95) mg/dL Est GFR ( Amer) 96.2 (>60) Est GFR (Non-Af Amer) 79.5 (>60) BUN/Creatinine Ratio 10.3 (8-20) Glucose 78 (70-100) mg/dL Lactic Acid 0.9 (0.5-2.0) mmol/L Calcium 9.5 (8.6-10.3) mg/dL Total Bilirubin 0.30 (0.2-1.0) mg/dL AST 22 (13-39) U/L ALT 15 (7-52) U/L Alkaline Phosphatase 256 H (34-104) U/L C-Reactive Protein Pending Total Protein 7.5 (6.4-8.9) g/dL Albumin 3.9 (3.2-5.2) g/dL Globulin 3.6 (2-4) g/dL Albumin/Globulin Ratio 1.1 (1-3) TSH 0.79 (0.34-5.60) mcIU/mL Beta HCG, Quant 1.24 mIU/mL Salicylates < 2.50 (<30) mg/dL Acetaminophen < 15 mcg/mL Serum Alcohol < 10 (<10) mg/dL Microbiology and Other Data: Microbiology 01/04/19 00:37 Gram Stain - Final Foot Left 01/04/19 01:24 Skin and Soft Tissue MRSA/MSSA (PCR - Final Foot Left Mrsa Negative S.aureus Positive Assess/Plan/Problems-Billing Assessment: 47 yo F with H polysubstance abuse, hepatitis C , anxiety/ depression, with recent history of left leg compartment syndrome after syncope and collapse on 09/18, rhabdo, s/p 4 fasciotomies, and multiple I&Ds now living alone presented back to the ED on 01/04 with SI and was noted to have L foot wound - Patient Problems (1) Constipation Current Visit: Yes Status: Acute Code(s): K59.00 - CONSTIPATION, UNSPECIFIED SNOMED Code(s): 14103896 Comment: narcotic-related, miralax/senna/colace (2) Osteomyelitis Current Visit: Yes Status: Acute Code(s): M86.9 - OSTEOMYELITIS, UNSPECIFIED SNOMED Code(s): 00401510 Comment: acute s/p debridement in OR on 01/04/19-now VAC in place cont ceftriaxone/flagyl. MRSA wound cx neg-d/c Vanc Wound cx positive for Providencia, Haemophilus, Prevotella, Peptoniphilus ID following; will await final recommendations re: detention abx plans plan for BKA next weke (3) Peripheral arterial disease Current Visit: Yes Status: Acute Code(s): I73.9 - PERIPHERAL VASCULAR DISEASE, UNSPECIFIED SNOMED Code(s): 664255624 Comment: aterior tibial and dorsalis pedis with very poor flow but not able to be stented concern for wound healing potential plan for BKA next week (4) Chronic, continuous use of opioids Current Visit: No Status: Acute Code(s): F11.90 - OPIOID USE, UNSPECIFIED, UNCOMPLICATED SNOMED Code(s): 617655340 Comment: cont home methadone, the dose was lowered due to hypotension on -pt agreed plus prn percocet Status and Disposition: inpatient
--- NOTE | 2019-01-10 16:26 | PN ---
Subjective - Subjective Date of Service: 01/10/19 Service Type: [id number] Hosp care 15 min low complexity Subjective: Yuki is found happily talking with a friend who is visiting. She states she would really like to talk to her friend, but that she can spare a moment or two for me. She states she will "really need" me on the day she is having surgery to amputate her left leg below the knee, but until then she is fine. We suggest that when she is to transition to outpatient care that she be referred to drug and alcohol rehabilitation. The [facility] will sign off from Yuki's care. Thank you for the consultation. Plan - Plan Treatment Plan: Name: EDD LOVING Birthdate: 1970 [id number] Medications: Current Medications Acetaminophen (Tylenol Tab*) 650 mg PO Q4H PRN PRN Reason: FEVER/PAIN Last Admin: 01/10/19 00:26 Dose: 650 mg Al Hydrox/Mg Hydrox/Simethicone (Maalox Plus*) 30 ml PO Q6H PRN PRN Reason: INDIGESTION Last Admin: 01/09/19 20:08 Dose: 30 ml Albuterol (Ventolin Hfa Inhaler*) 2 puff INH Q4H PRN PRN Reason: SOB/WHEEZING Last Admin: 01/10/19 12:13 Dose: 2 puff Cetirizine HCl (Zyrtec*) 10 mg PO DAILY [facility] Last Admin: 01/10/19 10:18 Dose: 10 mg Docusate Sodium (Colace Cap*) 100 mg PO BID PRN PRN Reason: CONSTIPATION Last Admin: 01/10/19 08:34 Dose: 100 mg Fluoxetine HCl (Prozac Cap*) 30 mg PO DAILY [facility] Last Admin: 01/10/19 10:20 Dose: 30 mg Fluticasone Propionate (Flonase Nasal [place] 50mcg*) 2 spray BOTH NARES DAILY [facility] Last Admin: 01/10/19 10:21 Dose: 2 spray Heparin Sodium (Porcine) (Heparin Vial(*)) 5,000 units SUBCUT Q8HR [facility] Last Admin: 01/10/19 14:41 Dose: 5,000 units Metronidazole/Sodium Chloride (Flagyl 500 Mg Ivpb*) 500 mg in 100 mls @ 100 mls /hr IVPB 0830,2030 [facility] Last Admin: 01/10/19 10:18 Dose: 100 mls/hr Ceftriaxone Sodium 1 gm/ (Sodium Chloride) 50 mls @ 200 mls/hr IVPB Q24H [facility] Last Admin: 01/09/19 18:33 Dose: 200 mls/hr Lorazepam (Ativan Tab(*)) 0.5 mg PO BID PRN PRN Reason: ANXIETY Last Admin: 01/10/19 11:44 Dose: 0.5 mg Methadone HCl (Dolophine Tab*) 10 mg PO BEDTIME [facility] Last Admin: 01/09/19 20:08 Dose: 10 mg Methadone HCl (Dolophine Tab*) 20 mg PO 0900,1400 [facility] Last Admin: 01/10/19 14:44 Dose: 20 mg Montelukast Sodium (Singulair Tab*) 10 mg PO BEDTIME [facility] Last Admin: 01/09/19 20:45 Dose: 10 mg Ondansetron HCl (Zofran Inj*) 4 mg IV Q4H PRN PRN Reason: NAUSEA/VOMITING Oxycodone/Acetaminophen (Percocet 5/325 Tab*) 1 tab PO Q3H PRN PRN Reason: PAIN - MILD TO MODERATE Last Admin: 01/10/19 16:19 Dose: 1 tab Pantoprazole Sodium (Protonix Tab*) 40 mg PO DAILY [facility] Last Admin: 01/10/19 10:19 Dose: 40 mg Polyethylene Glycol/Electrolytes (Miralax*) 17 gm PO DAILY [facility] Last Admin: 01/10/19 10:21 Dose: 17 gm Pregabalin (Lyrica Cap(*)) 75 mg PO BID [facility] Last Admin: 01/10/19 10:19 Dose: 75 mg Senna (Senokot Tab*) 1 tab PO BID PRN PRN Reason: CONSTIPATION Last Admin: 01/10/19 08:34 Dose: 1 tab Sodium Biphosphate/Sodium Phosphate (Fleet Enema*) 1 bottle [place] DAILY PRN PRN Reason: CONSTIPATION Last Admin: 01/08/19 13:58 Dose: 1 bottle Trazodone HCl (Desyrel Tab*) 300 mg PO BEDTIME [facility] Last Admin: 01/09/19 20:08 Dose: 300 mg
[2019-01-10] MEDS: cefTRIAXone(*) 1 GM in NS 0.9% 50 ML* 50 ML IVPB SCH (17:46)
[2019-01-10] MEDS: traZODone TAB* 100 MG PO SCH (20:34)
[2019-01-10] MEDS: Montelukast Sodium TAB* 10 MG PO SCH (20:35)
[2019-01-11] MEDS: oxyCODONE/Acetamin 5/325 MG* TAB PO PRN ×4 (02:41→21:40)
[2019-01-11] MEDS: Heparin VIAL(*) 5000 UNITS/ML VIAL (FIVE THOUSAND) SUBCUT SCH ×3 (05:44→21:42)
[2019-01-11] MEDS: Polyethylene Glycol 3350* 17 GM PACKET PO SCH (08:04)
[2019-01-11] MEDS: Fluticasone NASAL SPRAY 50MCG* 16 gm SPRAY BTL BOTH NARES SCH (08:04)
[2019-01-11] MEDS: Pregabalin CAP(*) 25 MG PO SCH ×2 (08:05→21:39)
[2019-01-11] MEDS: metroNIDAZOLE IV 500 MG/100ML* 500 MG/100 ML BAG IVPB SCH ×2 (08:05→20:07)
[2019-01-11] MEDS: Cetirizine* 10 MG TAB PO SCH (08:06)
[2019-01-11] MEDS: Methadone TAB* 10 MG PO SCH ×2 (08:06→14:06)
[2019-01-11] MEDS: Pantoprazole TAB * 40 MG TAB PO SCH (08:06)
[2019-01-11] MEDS: FLUoxetine CAP* 10 MG PO SCH (08:06)
[2019-01-11] MEDS: LORazepam TAB(*) 0.5 MG PO PRN (13:39)
--- NOTE | 2019-01-11 14:23 | PN ---
Subjective Date of Service: 01/11/19 Interval History: Feels okay but her pain is not well controlled. Pain is worst in the calf. Getting methadone at at lower dose than she gets at home plus percocet. Had a bowel movement this morning. Objective Active Medications: Acetaminophen (Tylenol Tab*) 650 mg PO Q4H PRN PRN Reason: FEVER/PAIN Last Admin: 01/10/19 00:26 Dose: 650 mg Al Hydrox/Mg Hydrox/Simethicone (Maalox Plus*) 30 ml PO Q6H PRN PRN Reason: INDIGESTION Last Admin: 01/09/19 20:08 Dose: 30 ml Albuterol (Ventolin Hfa Inhaler*) 2 puff INH Q4H PRN PRN Reason: SOB/WHEEZING Last Admin: 01/10/19 12:13 Dose: 2 puff Cetirizine HCl (Zyrtec*) 10 mg PO DAILY [facility] Last Admin: 01/11/19 08:06 Dose: 10 mg Docusate Sodium (Colace Cap*) 100 mg PO BID PRN PRN Reason: CONSTIPATION Last Admin: 01/10/19 20:34 Dose: 100 mg Fluoxetine HCl (Prozac Cap*) 30 mg PO DAILY [facility] Last Admin: 01/11/19 08:06 Dose: 30 mg Fluticasone Propionate (Flonase Nasal [place]iva 50mcg*) 2 spray BOTH NARES DAILY [facility] Last Admin: 01/11/19 08:04 Dose: 2 spray Heparin Sodium (Porcine) (Heparin Vial(*)) 5,000 units SUBCUT Q8HR [facility] Last Admin: 01/11/19 14:10 Dose: 5,000 units Metronidazole/Sodium Chloride (Flagyl 500 Mg Ivpb*) 500 mg in 100 mls @ 100 mls /hr IVPB 0830,2030 [facility] Last Admin: 01/11/19 08:05 Dose: 100 mls/hr Ceftriaxone Sodium 1 gm/ (Sodium Chloride) 50 mls @ 200 mls/hr IVPB Q24H [facility] Last Admin: 01/10/19 17:46 Dose: 200 mls/hr Lorazepam (Ativan Tab(*)) 0.5 mg PO BID PRN PRN Reason: ANXIETY Last Admin: 01/11/19 13:39 Dose: 0.5 mg Methadone HCl (Dolophine Tab*) 20 mg PO 0900,1400 [facility] Last Admin: 01/11/19 14:06 Dose: 20 mg Montelukast Sodium (Singulair Tab*) 10 mg PO BEDTIME [facility] Last Admin: 01/10/19 20:35 Dose: 10 mg Ondansetron HCl (Zofran Inj*) 4 mg IV Q4H PRN PRN Reason: NAUSEA/VOMITING Oxycodone/Acetaminophen (Percocet 5/325 Tab*) 1 tab PO Q3H PRN PRN Reason: PAIN - MILD TO MODERATE Last Admin: 01/11/19 12:46 Dose: 1 tab Pantoprazole Sodium (Protonix Tab*) 40 mg PO DAILY [facility] Last Admin: 01/11/19 08:06 Dose: 40 mg Polyethylene Glycol/Electrolytes (Miralax*) 17 gm PO DAILY [facility] Last Admin: 01/11/19 08:04 Dose: 17 gm Pregabalin (Lyrica Cap(*)) 75 mg PO BID [facility] Last Admin: 01/11/19 08:05 Dose: 75 mg Senna (Senokot Tab*) 1 tab PO BID PRN PRN Reason: CONSTIPATION Last Admin: 01/10/19 20:34 Dose: 1 tab Sodium Biphosphate/Sodium Phosphate (Fleet Enema*) 1 bottle CO DAILY PRN PRN Reason: CONSTIPATION Last Admin: 01/08/19 13:58 Dose: 1 bottle Trazodone HCl (Desyrel Tab*) 300 mg PO BEDTIME [facility] Last Admin: 01/10/19 20:34 Dose: 300 mg Vital Signs - 8 hr 01/11/19 01/11/19 01/11/19 07:13 08:00 08:05 Temperature 98.1 F Pulse Rate 64 Respiratory 18 14 16 Rate Blood Pressure 88/45 (mmHg) O2 Sat by Pulse 95 Oximetry 01/11/19 01/11/19 01/11/19 08:06 09:27 10:31 Temperature 98.6 F Pulse Rate 56 Respiratory 16 16 20 Rate Blood Pressure 86/46 (mmHg) O2 Sat by Pulse 96 Oximetry 01/11/19 01/11/19 01/11/19 11:42 12:46 13:39 Temperature 98.8 F Pulse Rate 74 Respiratory 17 18 16 Rate Blood Pressure 89/43 (mmHg) O2 Sat by Pulse 99 Oximetry 01/11/19 01/11/19 01/11/19 13:55 14:06 14:16 Temperature Pulse Rate 68 Respiratory 16 18 Rate Blood Pressure 88/49 86/50 (mmHg) O2 Sat by Pulse 95 Oximetry Oxygen Devices in Use Now: None Appearance: alert, well appearing Eyes: No Scleral Icterus Ears/Nose/Mouth/Throat: NL Teeth, Lips, Gums Neck: NL Appearance and Movements; NL JVP Respiratory: Symmetrical Chest Expansion and Respiratory Effort Cardiovascular: NL Sounds; No Murmurs; No JVD Abdominal: NL Sounds; No Tenderness; No Distention Lymphatic: No Cervical Adenopathy Extremities: - - left foot with clemencia and vac in place, toes are pale with slow cap refill and decreased sensation Result Diagrams: 01/09/19 06:00 01/09/19 06:00 Additional Lab and Data: Lab Results 01/03/19 01/03/19 01/03/19 Range/Units 21:09 21:09 21:09 WBC 11.0 H (3.5-10.8) 10^3/uL RBC 4.51 (3.70-4.87) 10^6 /uL Hgb 12.1 (12.0-16.0) g/dL Hct 36 (33-41) % MCV 80 (80-97) fL MCH 27 (27-31) pg MCHC 34 (31-36) g/dL RDW 14 (10.5-15) % Plt Count 533 H (150-450) 10^3/uL MPV 7.9 (7.4-10.4) fL Neut % (Auto) 64.7 % Lymph % (Auto) 21.3 % Hardin % (Auto) 12.7 % Eos % (Auto) 0.5 % Baso % (Auto) 0.8 % Absolute Neuts (auto) 7.1 (1.5-7.7) 10^3/ul Absolute Lymphs (auto) 2.3 (1.0-4.8) 10^3/ul Absolute Monos (auto) 1.4 H (0-0.8) 10^3/ul Absolute Eos (auto) 0.1 (0-0.6) 10^3/ul Absolute Basos (auto) 0.1 (0-0.2) 10^3/ul Absolute Nucleated RBC 0 10^3/ul Nucleated RBC % 0 ESR Pending Sodium 136 (135-145) mmol/L Potassium 3.0 L (3.5-5.0) mmol/L Chloride 96 L (101-111) mmol/L Carbon Dioxide 28 (22-32) mmol/L Anion Gap 12 H (2-11) mmol/L BUN 8 (6-24) mg/dL Creatinine 0.78 (0.51-0.95) mg/dL Est GFR ( Amer) 96.2 (>60) Est GFR (Non-Af Amer) 79.5 (>60) BUN/Creatinine Ratio 10.3 (8-20) Glucose 78 (70-100) mg/dL Lactic Acid 0.9 (0.5-2.0) mmol/L Calcium 9.5 (8.6-10.3) mg/dL Total Bilirubin 0.30 (0.2-1.0) mg/dL AST 22 (13-39) U/L ALT 15 (7-52) U/L Alkaline Phosphatase 256 H (34-104) U/L C-Reactive Protein Pending Total Protein 7.5 (6.4-8.9) g/dL Albumin 3.9 (3.2-5.2) g/dL Globulin 3.6 (2-4) g/dL Albumin/Globulin Ratio 1.1 (1-3) TSH 0.79 (0.34-5.60) mcIU/mL Beta HCG, Quant 1.24 mIU/mL Salicylates < 2.50 (<30) mg/dL Acetaminophen < 15 mcg/mL Serum Alcohol < 10 (<10) mg/dL Microbiology and Other Data: Microbiology 01/04/19 00:37 Gram Stain - Final Foot Left 01/04/19 01:24 Skin and Soft Tissue MRSA/MSSA (PCR - Final Foot Left Mrsa Negative S.aureus Positive Assess/Plan/Problems-Billing Assessment: 47 yo F with H polysubstance abuse, hepatitis C , anxiety/ depression, with recent history of left leg compartment syndrome after syncope and collapse on 09/18, rhabdo, s/p 4 fasciotomies, and multiple I&Ds now living alone presented back to the ED on 01/04 with SI and was noted to have L foot wound - Patient Problems (1) Constipation Current Visit: Yes Status: Acute Code(s): K59.00 - CONSTIPATION, UNSPECIFIED SNOMED Code(s): 27477647 Comment: narcotic-related, miralax/senna/colace (2) Osteomyelitis Current Visit: Yes Status: Acute Code(s): M86.9 - OSTEOMYELITIS, UNSPECIFIED SNOMED Code(s): 01937636 Comment: acute s/p debridement in OR on 01/04/19-now VAC in place cont ceftriaxone/flagyl. MRSA wound cx neg-d/c Vanc Wound cx positive for Providencia, Haemophilus, Prevotella, Peptoniphilus ID following; will await final recommendations re: half-way abx plans plan for BKA next week (3) Peripheral arterial disease Current Visit: Yes Status: Acute Code(s): I73.9 - PERIPHERAL VASCULAR DISEASE, UNSPECIFIED SNOMED Code(s): 491128844 Comment: aterior tibial and dorsalis pedis with very poor flow but not able to be stented concern for wound healing potential plan for BKA next week (4) Chronic, continuous use of opioids Current Visit: No Status: Acute Code(s): F11.90 - OPIOID USE, UNSPECIFIED, UNCOMPLICATED SNOMED Code(s): 044952732 Comment: consult Dr. Cabrera today--will need his recommendations especially postoperatively for pain control Status and Disposition: inpatient
--- NOTE | 2019-01-11 15:40 | CONSULT ---
Consult Consult: INPATIENT PAIN CONSULTATION Peyton Trujillo is a 48 year old female. She has a known history of alcohol and cocaine abuse, and has used heroin in the past. She has had multiple admissions for SI as well. She had a partial knee replacement in 2016 and was on Suboxone following that. She was getting the Suboxone from Dr. Huang. After that, she had admissions for SI. She was incarcerated in late 2017. After her release, she was seen in the ER on September 18. She was given Narcan. She returned two days later complaining of left leg pain. She was admitted with compartment syndrome, had fasciotomies and was left with a left foot drop, no plantarflexion and no sensation below her smalls. She went to the physical rehab unit and was sent home. For her pain, she was sent with Methadone which worked well to control her pain in the hospital. After discharge, she had difficulties. She was seen in the ER looking for additional pain medications on two occasions. She saw me in the Pain clinic in November. She says she had pain and self-medicated with alcohol and cocaine, and developed an ulcer on her foot. Sge saw DR. Loving and was put on Keflex. She returned to the ER January 04, complaining of SI and a foot infection. She was admitted and started on IV antibiotics, had a debridement. She had a VAC dressing and plans are for her to have a left BKA next week. She complains of significant pain. He Methadone was lowered to twice a day and she was put on oxycodone 5 mg Q3. She says this is not enough. PAST MEDICAL HISTORY: As above. Hep C, PTSD, GERD Allergies Allergy/AdvReac Type Severity Reaction Status Date / [facility] Allergy Unknown Rash Verified 12/05/18 18:51 omeprazole Allergy See Comment Verified 12/05/18 18:51 tramadol AdvReac See Comment Verified 12/05/18 18:51 Current Medications Acetaminophen (Tylenol Tab*) 650 mg PO Q4H PRN PRN Reason: FEVER/PAIN Last Admin: 01/10/19 00:26 Dose: 650 mg Al Hydrox/Mg Hydrox/Simethicone (Maalox Plus*) 30 ml PO Q6H PRN PRN Reason: INDIGESTION Last Admin: 01/09/19 20:08 Dose: 30 ml Albuterol (Ventolin Hfa Inhaler*) 2 puff INH Q4H PRN PRN Reason: SOB/WHEEZING Last Admin: 01/10/19 12:13 Dose: 2 puff Cetirizine HCl (Zyrtec*) 10 mg PO DAILY [facility] Last Admin: 01/11/19 08:06 Dose: 10 mg Docusate Sodium (Colace Cap*) 100 mg PO BID PRN PRN Reason: CONSTIPATION Last Admin: 01/10/19 20:34 Dose: 100 mg Fluoxetine HCl (Prozac Cap*) 30 mg PO DAILY [facility] Last Admin: 01/11/19 08:06 Dose: 30 mg Fluticasone Propionate (Flonase Nasal [place] 50mcg*) 2 spray BOTH NARES DAILY [facility] Last Admin: 01/11/19 08:04 Dose: 2 spray Heparin Sodium (Porcine) (Heparin Vial(*)) 5,000 units SUBCUT Q8HR [facility] Last Admin: 01/11/19 14:10 Dose: 5,000 units Metronidazole/Sodium Chloride (Flagyl 500 Mg Ivpb*) 500 mg in 100 mls @ 100 mls /hr IVPB 0830,2030 [facility] Last Admin: 01/11/19 08:05 Dose: 100 mls/hr Ceftriaxone Sodium 1 gm/ (Sodium Chloride) 50 mls @ 200 mls/hr IVPB Q24H [facility] Last Admin: 01/10/19 17:46 Dose: 200 mls/hr Lorazepam (Ativan Tab(*)) 0.5 mg PO BID PRN PRN Reason: ANXIETY Last Admin: 01/11/19 13:39 Dose: 0.5 mg Methadone HCl (Dolophine Tab*) 20 mg PO 0900,1400 [facility] Last Admin: 01/11/19 14:06 Dose: 20 mg Montelukast Sodium (Singulair Tab*) 10 mg PO BEDTIME [facility] Last Admin: 01/10/19 20:35 Dose: 10 mg Ondansetron HCl (Zofran Inj*) 4 mg IV Q4H PRN PRN Reason: NAUSEA/VOMITING Oxycodone/Acetaminophen (Percocet 5/325 Tab*) 1 tab PO Q3H PRN PRN Reason: PAIN - MILD TO MODERATE Last Admin: 01/11/19 12:46 Dose: 1 tab Pantoprazole Sodium (Protonix Tab*) 40 mg PO DAILY [facility] Last Admin: 01/11/19 08:06 Dose: 40 mg Polyethylene Glycol/Electrolytes (Miralax*) 17 gm PO DAILY [facility] Last Admin: 01/11/19 08:04 Dose: 17 gm Pregabalin (Lyrica Cap(*)) 75 mg PO BID [facility] Last Admin: 01/11/19 08:05 Dose: 75 mg Senna (Senokot Tab*) 1 tab PO BID PRN PRN Reason: CONSTIPATION Last Admin: 01/10/19 20:34 Dose: 1 tab Sodium Biphosphate/Sodium Phosphate (Fleet Enema*) 1 bottle ID DAILY PRN PRN Reason: CONSTIPATION Last Admin: 01/08/19 13:58 Dose: 1 bottle Trazodone HCl (Desyrel Tab*) 300 mg PO BEDTIME [facility] Last Admin: 01/10/19 20:34 Dose: 300 mg SOCIAL HISTORY: Smoker. Has relapsed with alcohol several times in past month. Has done cocaine several times in past 6 weeks. Lives in mobile home by herself. Her parents are involved but will not let her move back in with them. ROS: No SOB or CP Vital Signs Temp Pulse Resp BP Pulse Ox 98.8 F 68 18 86/50 95 01/11/19 11:42 01/11/19 13:55 01/11/19 14:06 01/11/19 14:16 01/11/19 13:55 EXAM: LUNGS: Clear HEART: reg rhythm ABDOMEN: soft +BS EXTREMITIES: left foot has VAC, malodorous ASSESSMENT: 1. Ulcer, left foot 2. Pain, left leg PLAN: I explained to Yuki that there are things more opioids won't fix, and that she is scheduled to have surgery next week. Her methadone dose is irregular and I will change it to 15 mg PO Q8H. She will take as much oxy as is written for, and I think we need to be careful. It is tough to differentiate pain from craving and anxiety. She is having surgery next week and her pain may be hard to control if we keep increasing her oxycodone. She has no sensation in the foot. I will increase her Lyrica to TID, adjust her Methadone, and keep oxy where it is. I will follow.
--- NOTE | 2019-01-11 16:46 | PN ---
Progress Note - Progress Note Date of Service: 01/11/19 Note: I visited with Peyton 2 days ago, on Tuesday. We had a long discussion with her about her left leg and foot. Currently, she has an insensate foot. She has no sensation from about senior care down the lower leg distally. She has no dorsalis pedis artery, and is completely dependent on her posterior tibial artery. She has a plantar forefoot wound, underlying infection and osteomyelitis. She has a fifth metatarsal fracture, that she did not even know she had sustained, given her neuropathy. Additionally, she has a profound Achilles contracture. In short, she has a very difficult problem. We discussed continuing the VAC changes and also the need for a Z-lengthening of her Achilles to help with her plantarflexion contracture. At one point during the conversation, she asked I'm just going to keep having problems with this foot arent I?. I explained that we would try to prevent this, but given the aggregation of her problems, persistent and recurrent problems are a real and likely possibility. After this, we did discuss a below the knee amputation as well. We discussed what surgery would entail, as well as the recovery, and how a prosthetic works. At that time, told her to think further about the BKA, but that we would continue to plan on VAC changes and Achilles lengthening for now. Yesterday, I was notified that she had thought it over and was leaning towards a BKA. Today, I visited with Peyton again and we had another long discussion about her situation and options. She reports that she has thought it over at length, and talked with the family, and would like to move forward with a BKA. She reports that she finds her left foot totally useless and does not want to continue to go through the ongoing problems it is causing. She stated that she feels like she is ready to move on with her life and is unable to because of the persistent problems her leg and foot are causing her. I made it very clear that I would be happy to continue with attempts to salvage her foot and make it as useful for her as possible. She again made it clear that she wanted to move forward with a BKA. We did again discuss the surgery, recovery, and the long- term implications. I offered to recheck out to prior patients of mine, to see if one would be willing to talk with her about the process, recovery, and decision. She was very grateful of this offer and was interested in pursuing this. She has some very good questions, all which were answered. We will plan on moving forward with a left below the knee amputation in the near future. After discussion, I changed her wound VAC. The wound itself is looking better and there is good granulation tissue throughout most of the wound, except at the exposed flexor tendon in the area of the fourth MTP joint. The VAC was replaced and held good suction. Cj Appiah MD
[2019-01-11] MEDS: cefTRIAXone(*) 1 GM in NS 0.9% 50 ML* 50 ML IVPB SCH (17:56)
[2019-01-11] MEDS: Methadone TAB* 5 MG PO SCH (21:39)
[2019-01-11] MEDS: Montelukast Sodium TAB* 10 MG PO SCH (21:39)
[2019-01-11] MEDS: traZODone TAB* 100 MG PO SCH (21:39)
[2019-01-12] MEDS: Heparin VIAL(*) 5000 UNITS/ML VIAL (FIVE THOUSAND) SUBCUT SCH ×3 (05:44→21:41)
[2019-01-12] MEDS: Methadone TAB* 5 MG PO SCH ×3 (05:45→21:40)
[2019-01-12] MEDS: Pantoprazole TAB * 40 MG TAB PO SCH (08:58)
[2019-01-12] MEDS: Pregabalin CAP(*) 25 MG PO SCH ×3 (08:58→21:38)
[2019-01-12] MEDS: Senna TAB PO PRN (08:59)
[2019-01-12] MEDS: Docusate CAP* 100 MG PO PRN (08:59)
[2019-01-12] MEDS: Polyethylene Glycol 3350* 17 GM PACKET PO SCH (08:59)
[2019-01-12] MEDS: FLUoxetine CAP* 10 MG PO SCH (08:59)
[2019-01-12] MEDS: Cetirizine* 10 MG TAB PO SCH (08:59)
[2019-01-12] MEDS: oxyCODONE/Acetamin 5/325 MG* TAB PO PRN ×4 (09:00→21:39)
[2019-01-12] MEDS: metroNIDAZOLE IV 500 MG/100ML* 500 MG/100 ML BAG IVPB SCH ×2 (09:13→21:39)
[2019-01-12] MEDS: Fluticasone NASAL SPRAY 50MCG* 16 gm SPRAY BTL BOTH NARES SCH (09:15)
--- NOTE | 2019-01-12 10:06 | PN ---
Progress Note - Progress Note Date of Service: 01/12/19 SOAP: Subjective: CC: Left foot infection HPI: Ms. Trujillo is a 48 yo female with PMH significant for polysubstance abuse, and history of a left lower extremity compartment syndrome in 09/2018 with complicated postoperative course who presented to the hospital with complaints of SI and left foot wound. Denies fever, chills, shortness of breath, chest discomfort, N/V/D. She reports constipation, but states that she last moved her bowels yesterday. Reports that the left foot pain is controlled. After discussing with Dr. Appiah she would like to pursue a BKA next week. Objective: Vital Signs - 8 hr 01/12/19 01/12/19 01/12/19 03:25 05:45 07:19 Temperature 98.4 F 97.9 F Pulse Rate 59 67 Respiratory 18 16 16 Rate Blood Pressure 90/56 90/55 (mmHg) O2 Sat by Pulse 95 96 Oximetry Physical Exam: General: NAD, laying in bed Neurological: Alert and Oriented x 4. No sensation to the left lower leg HEENT: No thrush, moist MM Cardiovascular: Heart rate regular Respiratory: Lungs clear Abdominal: Bowel sounds present; ABD soft, non tender and non distended Musculoskeletal: No dorsi or plantar flexion on the left lower extremity Skin: No rash, wound vac intact to the let foot Microbiology 01/04/19 16:45 Anaerobic Culture - Final Wound Prevotella Melaninogenica Acid Fast Bacilli Smear - Final 01/03/19 21:08 Aerobic Blood Culture - Final Blood Venous No Growth Day 5 Anaerobic Blood Culture - Final No Growth Day 5 01/03/19 21:08 Aerobic Blood Culture - Final Blood Venous No Growth Day 5 Anaerobic Blood Culture - Final No Growth Day 5 01/04/19 00:37 Gram Stain - Final Foot Left Wound Culture - Final Alcaligenes Species Providencia Rettgeri Peptoniphilus Asaccharolyticus Normal Rody 01/04/19 16:45 Gram Stain - Final Foot Left Wound Culture - Final Haemophilus Parainfluenzae Normal Rody 01/04/19 01:24 Skin and Soft Tissue MRSA/MSSA (PCR - Final Foot Left Mrsa Negative S.aureus Positive Assessment: 1. Left foot infection with osteomyelitis. Multiple organisms growing in her wound cultures including Haemophilus parainfluenzae, Staphylococcus aureus, alcaligenes species, Providencia rettgeri, Peptoniphilus asaccharolyticus, methicillin-resistant Staphylococcus aureus negative. Anaerobic cultures with Prevotella Melaninogenica. Blood cultures with no growth to date. S/P left foor I+D and placement of wound vac on 01/04/[address] Appiah. S/P left foot wound debridement and wound vac dressing change on 01/07/[address] Wen. Afebrile and no leukocytosis. 2. Chronic pain. 3. Anxiety/depression with suicidal ideation on admission. Plan: Continue ceftriaxone 1 g IV daily in addition to Flagyl 500 mg twice daily. She will need 6 weeks of IV antibiotics to treat her osteomyelitis, day . She will need 2 weeks of Flagyl, day 05/26. Weekly labs while on IV ABX: CBC, CMP , and CRP.
--- NOTE | 2019-01-12 13:03 | PN ---
Progress Note - Progress Note Date of Service: 01/12/19 SOAP: Subjective: []Patient seen at bedside. Alert and oriented. She has decided to go forward with BKA. There is possibility that BKA may be able to be done earlier, over weekend with Dr. Appiah, however she is officially scheduled for Tuesday. Objective: [] Vital Signs Temp 97.9 F 01/12/19 07:19 Pulse 67 01/12/19 07:19 Resp 18 01/12/19 09:00 BP 90/55 01/12/19 07:19 Pulse Ox 96 01/12/19 07:19 Intake & Output 01/11/19 01/12/19 01/12/19 18:59 06:59 18:59 Intake Total 772 610 Balance 772 610 Intake: IVPB 130 ABX - FLAGYL 100 NS (0.9%) 30 Oral 772 480 Other: Estimated Void Medium Medium # Bowel Movements 0 Estimated Stool Amount Small # Voids 1 Wound vac on LLE and working Foot insensate Assessment: []Insensate left foot Osteomyelitis metatarsal fx Plan: []We will make her NPO after MN tonight for possibility of moving up BKA- Patient understands this. Continue NWB in interim Ceftriaxone and Flagyl
--- NOTE | 2019-01-12 16:44 | PN ---
Subjective Date of Service: 01/12/19 Interval History: Peyton is frustrated today. She feels like her pain isn't controlled, she's upset about her conversation with Dr. Cabrera yesterday (she thought methadone was decreased but the daily dose was actually increased). Objective Active Medications: Acetaminophen (Tylenol Tab*) 650 mg PO Q4H PRN PRN Reason: FEVER/PAIN Last Admin: 01/10/19 00:26 Dose: 650 mg Al Hydrox/Mg Hydrox/Simethicone (Maalox Plus*) 30 ml PO Q6H PRN PRN Reason: INDIGESTION Last Admin: 01/09/19 20:08 Dose: 30 ml Albuterol (Ventolin Hfa Inhaler*) 2 puff INH Q4H PRN PRN Reason: SOB/WHEEZING Last Admin: 01/10/19 12:13 Dose: 2 puff Cetirizine HCl (Zyrtec*) 10 mg PO DAILY [facility] Last Admin: 01/12/19 08:59 Dose: 10 mg Docusate Sodium (Colace Cap*) 100 mg PO BID PRN PRN Reason: CONSTIPATION Last Admin: 01/12/19 08:59 Dose: 100 mg Fluoxetine HCl (Prozac Cap*) 30 mg PO DAILY [facility] Last Admin: 01/12/19 08:59 Dose: 30 mg Fluticasone Propionate (Flonase Nasal [place] 50mcg*) 2 spray BOTH NARES DAILY [facility] Last Admin: 01/12/19 09:15 Dose: 2 spray Heparin Sodium (Porcine) (Heparin Vial(*)) 5,000 units SUBCUT Q8HR [facility] Last Admin: 01/12/19 13:53 Dose: 5,000 units Metronidazole/Sodium Chloride (Flagyl 500 Mg Ivpb*) 500 mg in 100 mls @ 100 mls /hr IVPB 0830,2030 [facility] Last Admin: 01/12/19 09:13 Dose: 100 mls/hr Ceftriaxone Sodium 1 gm/ (Sodium Chloride) 50 mls @ 200 mls/hr IVPB Q24H [facility] Last Admin: 01/11/19 17:56 Dose: 200 mls/hr Lorazepam (Ativan Tab(*)) 0.5 mg PO BID PRN PRN Reason: ANXIETY Last Admin: 01/11/19 13:39 Dose: 0.5 mg Methadone HCl (Dolophine Tab*) 15 mg PO Q8H [facility] Last Admin: 01/12/19 13:53 Dose: 15 mg Montelukast Sodium (Singulair Tab*) 10 mg PO BEDTIME [facility] Last Admin: 01/11/19 21:39 Dose: 10 mg Ondansetron HCl (Zofran Inj*) 4 mg IV Q4H PRN PRN Reason: NAUSEA/VOMITING Oxycodone/Acetaminophen (Percocet 5/325 Tab*) 1 tab PO Q3H PRN PRN Reason: PAIN - MODERATE Last Admin: 01/12/19 13:58 Dose: 1 tab Pantoprazole Sodium (Protonix Tab*) 40 mg PO DAILY [facility] Last Admin: 01/12/19 08:58 Dose: 40 mg Polyethylene Glycol/Electrolytes (Miralax*) 17 gm PO DAILY [facility] Last Admin: 01/12/19 08:59 Dose: 17 gm Pregabalin (Lyrica Cap(*)) 75 mg PO TID [facility] Last Admin: 01/12/19 13:52 Dose: 75 mg Senna (Senokot Tab*) 1 tab PO BID PRN PRN Reason: CONSTIPATION Last Admin: 01/12/19 08:59 Dose: 1 tab Sodium Biphosphate/Sodium Phosphate (Fleet Enema*) 1 bottle IN DAILY PRN PRN Reason: CONSTIPATION Last Admin: 01/08/19 13:58 Dose: 1 bottle Trazodone HCl (Desyrel Tab*) 300 mg PO BEDTIME [facility] Last Admin: 01/11/19 21:39 Dose: 300 mg Vital Signs - 8 hr 01/12/19 01/12/19 01/12/19 08:58 09:00 11:25 Temperature 98.2 F Pulse Rate 63 Respiratory 18 18 20 Rate Blood Pressure 79/44 (mmHg) O2 Sat by Pulse 94 Oximetry 01/12/19 01/12/19 01/12/19 11:30 13:52 13:53 Temperature Pulse Rate Respiratory 16 16 Rate Blood Pressure 96/52 (mmHg) O2 Sat by Pulse Oximetry 01/12/19 01/12/19 01/12/19 13:58 15:26 15:41 Temperature 98.0 F Pulse Rate 63 Respiratory 16 18 Rate Blood Pressure 83/47 (mmHg) O2 Sat by Pulse 97 97 Oximetry Oxygen Devices in Use Now: None Appearance: alert, watching music on ipad, looks well Eyes: No Scleral Icterus Ears/Nose/Mouth/Throat: NL Teeth, Lips, Gums Neck: NL Appearance and Movements; NL JVP Respiratory: Symmetrical Chest Expansion and Respiratory Effort Cardiovascular: NL Sounds; No Murmurs; No JVD Abdominal: NL Sounds; No Tenderness; No Distention Lymphatic: No Cervical Adenopathy Extremities: - - left foot with wound vac, decreased sensation, poor capillary refill Neurological: Alert and Oriented x 3 Result Diagrams: 01/09/19 06:00 01/09/19 06:00 Additional Lab and Data: Lab Results 01/03/19 01/03/19 01/03/19 Range/Units 21:09 21:09 21:09 WBC 11.0 H (3.5-10.8) 10^3/uL RBC 4.51 (3.70-4.87) 10^6 /uL Hgb 12.1 (12.0-16.0) g/dL Hct 36 (33-41) % MCV 80 (80-97) fL MCH 27 (27-31) pg MCHC 34 (31-36) g/dL RDW 14 (10.5-15) % Plt Count 533 H (150-450) 10^3/uL MPV 7.9 (7.4-10.4) fL Neut % (Auto) 64.7 % Lymph % (Auto) 21.3 % [place] % (Auto) 12.7 % Eos % (Auto) 0.5 % Baso % (Auto) 0.8 % Absolute Neuts (auto) 7.1 (1.5-7.7) 10^3/ul Absolute Lymphs (auto) 2.3 (1.0-4.8) 10^3/ul Absolute Monos (auto) 1.4 H (0-0.8) 10^3/ul Absolute Eos (auto) 0.1 (0-0.6) 10^3/ul Absolute Basos (auto) 0.1 (0-0.2) 10^3/ul Absolute Nucleated RBC 0 10^3/ul Nucleated RBC % 0 ESR Pending Sodium 136 (135-145) mmol/L Potassium 3.0 L (3.5-5.0) mmol/L Chloride 96 L (101-111) mmol/L Carbon Dioxide 28 (22-32) mmol/L Anion Gap 12 H (2-11) mmol/L BUN 8 (6-24) mg/dL Creatinine 0.78 (0.51-0.95) mg/dL Est GFR ( Amer) 96.2 (>60) Est GFR (Non-Af Amer) 79.5 (>60) BUN/Creatinine Ratio 10.3 (8-20) Glucose 78 (70-100) mg/dL Lactic Acid 0.9 (0.5-2.0) mmol/L Calcium 9.5 (8.6-10.3) mg/dL Total Bilirubin 0.30 (0.2-1.0) mg/dL AST 22 (13-39) U/L ALT 15 (7-52) U/L Alkaline Phosphatase 256 H (34-104) U/L C-Reactive Protein Pending Total Protein 7.5 (6.4-8.9) g/dL Albumin 3.9 (3.2-5.2) g/dL Globulin 3.6 (2-4) g/dL Albumin/Globulin Ratio 1.1 (1-3) TSH 0.79 (0.34-5.60) mcIU/mL Beta HCG, Quant 1.24 mIU/mL Salicylates < 2.50 (<30) mg/dL Acetaminophen < 15 mcg/mL Serum Alcohol < 10 (<10) mg/dL Microbiology and Other Data: Microbiology 01/04/19 00:37 Gram Stain - Final Foot Left 01/04/19 01:24 Skin and Soft Tissue MRSA/MSSA (PCR - Final Foot Left Mrsa Negative S.aureus Positive Assess/Plan/Problems-Billing Assessment: 47 yo F with H polysubstance abuse, hepatitis C , anxiety/ depression, with recent history of left leg compartment syndrome after syncope and collapse on 09/18, rhabdo, s/p 4 fasciotomies, and multiple I&Ds now living alone presented back to the ED on 01/04 with SI and was noted to have L foot wound - Patient Problems (1) Constipation Current Visit: Yes Status: Acute Code(s): K59.00 - CONSTIPATION, UNSPECIFIED SNOMED Code(s): 88738915 Comment: narcotic-related, miralax/senna/colace (2) Osteomyelitis Current Visit: Yes Status: Acute Code(s): M86.9 - OSTEOMYELITIS, UNSPECIFIED SNOMED Code(s): 55533753 Comment: acute s/p debridement in OR on 01/04/19-now VAC in place cont ceftriaxone/flagyl. MRSA wound cx neg-d/c Vanc Wound cx positive for Providencia, Haemophilus, Prevotella, Peptoniphilus ID following; will await final recommendations re: senior living abx plans plan for BKA next week (3) Peripheral arterial disease Current Visit: Yes Status: Acute Code(s): I73.9 - PERIPHERAL VASCULAR DISEASE, UNSPECIFIED SNOMED Code(s): 303904963 Comment: aterior tibial and dorsalis pedis with very poor flow but not able to be stented concern for wound healing potential plan for BKA next week (4) Chronic, continuous use of opioids Current Visit: No Status: Acute Code(s): F11.90 - OPIOID USE, UNSPECIFIED, UNCOMPLICATED SNOMED Code(s): 739271276 Comment: Dr. Cabrera adjusted pain meds yesterday--will need elevated doses post-op I suspect Status and Disposition: inpatient
[2019-01-12] MEDS: cefTRIAXone(*) 1 GM in NS 0.9% 50 ML* 50 ML IVPB SCH (17:41)
[2019-01-12] MEDS: LORazepam TAB(*) 0.5 MG PO PRN (18:07)
[2019-01-12] MEDS: Montelukast Sodium TAB* 10 MG PO SCH (21:39)
[2019-01-12] MEDS: traZODone TAB* 100 MG PO SCH (21:40)
[2019-01-13] MEDS: Heparin VIAL(*) 5000 UNITS/ML VIAL (FIVE THOUSAND) SUBCUT SCH ×3 (05:31→21:12)
[2019-01-13] MEDS: Methadone TAB* 5 MG PO SCH ×3 (05:31→21:10)
[2019-01-13] MEDS: oxyCODONE/Acetamin 5/325 MG* TAB PO PRN ×3 (05:33→12:24)
[2019-01-13] MEDS: Pantoprazole TAB * 40 MG TAB PO SCH (08:46)
[2019-01-13] MEDS: FLUoxetine CAP* 10 MG PO SCH (08:46)
[2019-01-13] MEDS: Cetirizine* 10 MG TAB PO SCH (08:46)
[2019-01-13] MEDS: Pregabalin CAP(*) 25 MG PO SCH ×3 (08:47→21:09)
[2019-01-13] MEDS: Polyethylene Glycol 3350* 17 GM PACKET PO SCH ×2 (08:47→21:09)
[2019-01-13] MEDS: Fluticasone NASAL SPRAY 50MCG* 16 gm SPRAY BTL BOTH NARES SCH (08:48)
[2019-01-13] MEDS: metroNIDAZOLE IV 500 MG/100ML* 500 MG/100 ML BAG IVPB SCH ×2 (08:48→21:12)
[2019-01-13] MEDS: Nicotine GUM* 2 MG PO PRN (12:24)
--- NOTE | 2019-01-13 16:49 | PN ---
Subjective Date of Service: 01/13/19 Interval History: Pt feels well.Pain well controlled. Appetite good Objective Active Medications: Acetaminophen (Tylenol Tab*) 650 mg PO Q4H PRN PRN Reason: FEVER/PAIN Last Admin: 01/10/19 00:26 Dose: 650 mg Al Hydrox/Mg Hydrox/Simethicone (Maalox Plus*) 30 ml PO Q6H PRN PRN Reason: INDIGESTION Last Admin: 01/09/19 20:08 Dose: 30 ml Albuterol (Ventolin Hfa Inhaler*) 2 puff INH Q4H PRN PRN Reason: SOB/WHEEZING Last Admin: 01/10/19 12:13 Dose: 2 puff Cetirizine HCl (Zyrtec*) 10 mg PO DAILY [facility] Last Admin: 01/13/19 08:46 Dose: 10 mg Docusate Sodium (Colace Cap*) 100 mg PO BID PRN PRN Reason: CONSTIPATION Last Admin: 01/12/19 08:59 Dose: 100 mg Fluoxetine HCl (Prozac Cap*) 30 mg PO DAILY [facility] Last Admin: 01/13/19 08:46 Dose: 30 mg Fluticasone Propionate (Flonase Nasal [place] 50mcg*) 2 spray BOTH NARES DAILY [facility] Last Admin: 01/13/19 08:48 Dose: 2 spray Heparin Sodium (Porcine) (Heparin Vial(*)) 5,000 units SUBCUT Q8HR [facility] Last Admin: 01/13/19 14:49 Dose: 5,000 units Metronidazole/Sodium Chloride (Flagyl 500 Mg Ivpb*) 500 mg in 100 mls @ 100 mls /hr IVPB 0830,2030 [facility] Last Admin: 01/13/19 08:48 Dose: 100 mls/hr Ceftriaxone Sodium 1 gm/ (Sodium Chloride) 50 mls @ 200 mls/hr IVPB Q24H [facility] Last Admin: 01/12/19 17:41 Dose: 200 mls/hr Lorazepam (Ativan Tab(*)) 0.5 mg PO BID PRN PRN Reason: ANXIETY Last Admin: 01/12/19 18:07 Dose: 0.5 mg Methadone HCl (Dolophine Tab*) 15 mg PO Q8H [facility] Last Admin: 01/13/19 14:50 Dose: 15 mg Montelukast Sodium (Singulair Tab*) 10 mg PO BEDTIME [facility] Last Admin: 01/12/19 21:39 Dose: 10 mg Nicotine Polacrilex (Nicotine Gum*) 2 mg PO Q2H PRN PRN Reason: CRAVING Last Admin: 01/13/19 12:24 Dose: 2 mg Ondansetron HCl (Zofran Inj*) 4 mg IV Q4H PRN PRN Reason: NAUSEA/VOMITING Oxycodone/Acetaminophen (Percocet 5/325 Tab*) 1 tab PO Q3H PRN PRN Reason: PAIN - MODERATE Last Admin: 01/13/19 12:24 Dose: 1 tab Pantoprazole Sodium (Protonix Tab*) 40 mg PO DAILY [facility] Last Admin: 01/13/19 08:46 Dose: 40 mg Polyethylene Glycol/Electrolytes (Miralax*) 17 gm PO BID [facility] Last Admin: 01/13/19 08:47 Dose: 17 gm Pregabalin (Lyrica Cap(*)) 75 mg PO TID [facility] Last Admin: 01/13/19 14:49 Dose: 75 mg Senna (Senokot Tab*) 1 tab PO BID PRN PRN Reason: CONSTIPATION Last Admin: 01/12/19 08:59 Dose: 1 tab Sodium Biphosphate/Sodium Phosphate (Fleet Enema*) 1 bottle [place] DAILY PRN PRN Reason: CONSTIPATION Last Admin: 01/08/19 13:58 Dose: 1 bottle Trazodone HCl (Desyrel Tab*) 300 mg PO BEDTIME [facility] Last Admin: 01/12/19 21:40 Dose: 300 mg Vital Signs - 8 hr 01/13/19 01/13/19 01/13/19 08:45 08:47 11:12 Temperature 98.4 F Pulse Rate 67 Respiratory 18 18 25 Rate Blood Pressure 92/57 (mmHg) O2 Sat by Pulse 96 Oximetry 01/13/19 01/13/19 01/13/19 12:24 12:25 14:49 Temperature Pulse Rate Respiratory 18 18 18 Rate Blood Pressure (mmHg) O2 Sat by Pulse Oximetry 01/13/19 01/13/19 14:50 15:23 Temperature Pulse Rate Respiratory 18 18 Rate Blood Pressure (mmHg) O2 Sat by Pulse Oximetry Oxygen Devices in Use Now: None Appearance: 48 yo F in nAD, AAOx3 Eyes: No Scleral Icterus, PERRLA Ears/Nose/Mouth/Throat: NL Teeth, Lips, Gums, Mucous Membranes Moist Neck: NL Appearance and Movements; NL JVP, Trachea Midline Respiratory: Symmetrical Chest Expansion and Respiratory Effort, Clear to Auscultation Cardiovascular: NL Sounds; No Murmurs; No JVD, RRR Abdominal: NL Sounds; No Tenderness; No Distention Lymphatic: No Cervical Adenopathy Extremities: No Clubbing, Cyanosis, - - left foot-mild edema-vac dressing in place Skin: No Nodules or Sclerosis Neurological: Alert and Oriented x 3, NL Muscle Strength and Tone, - - left foot drop Result Diagrams: 01/09/19 06:00 01/09/19 06:00 Additional Lab and Data: Lab Results 01/03/19 01/03/19 01/03/19 Range/Units 21:09 21:09 21:09 WBC 11.0 H (3.5-10.8) 10^3/uL RBC 4.51 (3.70-4.87) 10^6 /uL Hgb 12.1 (12.0-16.0) g/dL Hct 36 (33-41) % MCV 80 (80-97) fL MCH 27 (27-31) pg MCHC 34 (31-36) g/dL RDW 14 (10.5-15) % Plt Count 533 H (150-450) 10^3/uL MPV 7.9 (7.4-10.4) fL Neut % (Auto) 64.7 % Lymph % (Auto) 21.3 % [place] % (Auto) 12.7 % Eos % (Auto) 0.5 % Baso % (Auto) 0.8 % Absolute Neuts (auto) 7.1 (1.5-7.7) 10^3/ul Absolute Lymphs (auto) 2.3 (1.0-4.8) 10^3/ul Absolute Monos (auto) 1.4 H (0-0.8) 10^3/ul Absolute Eos (auto) 0.1 (0-0.6) 10^3/ul Absolute Basos (auto) 0.1 (0-0.2) 10^3/ul Absolute Nucleated RBC 0 10^3/ul Nucleated RBC % 0 ESR Pending Sodium 136 (135-145) mmol/L Potassium 3.0 L (3.5-5.0) mmol/L Chloride 96 L (101-111) mmol/L Carbon Dioxide 28 (22-32) mmol/L Anion Gap 12 H (2-11) mmol/L BUN 8 (6-24) mg/dL Creatinine 0.78 (0.51-0.95) mg/dL Est GFR ( Amer) 96.2 (>60) Est GFR (Non-Af Amer) 79.5 (>60) BUN/Creatinine Ratio 10.3 (8-20) Glucose 78 (70-100) mg/dL Lactic Acid 0.9 (0.5-2.0) mmol/L Calcium 9.5 (8.6-10.3) mg/dL Total Bilirubin 0.30 (0.2-1.0) mg/dL AST 22 (13-39) U/L ALT 15 (7-52) U/L Alkaline Phosphatase 256 H (34-104) U/L C-Reactive Protein Pending Total Protein 7.5 (6.4-8.9) g/dL Albumin 3.9 (3.2-5.2) g/dL Globulin 3.6 (2-4) g/dL Albumin/Globulin Ratio 1.1 (1-3) TSH 0.79 (0.34-5.60) mcIU/mL Beta HCG, Quant 1.24 mIU/mL Salicylates < 2.50 (<30) mg/dL Acetaminophen < 15 mcg/mL Serum Alcohol < 10 (<10) mg/dL Microbiology and Other Data: Microbiology 01/04/19 00:37 Gram Stain - Final Foot Left 01/04/19 01:24 Skin and Soft Tissue MRSA/MSSA (PCR - Final Foot Left Mrsa Negative S.aureus Positive Assess/Plan/Problems-Billing Assessment: 47 yo F with H polysubstance abuse, hepatitis C , anxiety/ depression, with recent history of left leg compartment syndrome after syncope and collapse on 09/18, rhabdo, s/p 4 fasciotomies, and multiple I&Ds now living alone presented back to the ED on 01/04 with SI and was noted to have L foot wound - Patient Problems (1) Anxiety and depression Comment: With SI that so far resolved Appreciate psychiatry consult-cont Prozac, Trazadone 1:1 obs d/c'd on 01/06/19 (2) Osteomyelitis Comment: acute s/p debridement in OR on 01/04/19-now VAC in place cont ceftriaxone/flagyl. MRSA wound cx neg-d/c Vanc Wound cx positive for Providencia, Haemophilus, Prevotella, Peptoniphilus ID following; will await final recommendations re: assisted abx plans plan for BKA next week (3) Chronic, continuous use of opioids Comment: Dr. Cabrera adjusted pain meds (4) Polysubstance (including opioids) dependence w/o physiol dependence Comment: UDS positive for cocaine, amphetamines, cannabis at admission (5) Hypotension Comment: pt asymptomatic, non toxic appearing, Has had chronically low BP (6) DVT prophylaxis Comment: eliquis Status and Disposition: inpatient
[2019-01-13] MEDS: cefTRIAXone(*) 1 GM in NS 0.9% 50 ML* 50 ML IVPB SCH (17:13)
[2019-01-13] MEDS: Montelukast Sodium TAB* 10 MG PO SCH (21:09)
[2019-01-13] MEDS: traZODone TAB* 100 MG PO SCH (21:09)
[2019-01-14] MEDS: Heparin VIAL(*) 5000 UNITS/ML VIAL (FIVE THOUSAND) SUBCUT SCH ×3 (05:16→22:41)
[2019-01-14] MEDS: Methadone TAB* 5 MG PO SCH ×3 (05:33→22:30)
[2019-01-14 05:46] LABS: ABS Basophils 0.1 10^3/ul (0-0.2); ABS Eosinophils 0.1 10^3/ul (0-0.6); ABS Monocytes 0.7 10^3/ul (0-0.8); ABS Neutrophils 2.6 10^3/ul (1.5-7.7); Eosinophil % 1.6 %; Hematocrit 36 % (35-47); Hemoglobin 11.5 g/dL (12.0-16.0); Lymphocyte % 36.7 %; Mean Corpuscular HGB Conc 32 g/dL (31-36); Mean Corpuscular Hemoglobin 27 pg (27-31); Mean Corpuscular Volume 85 fL (80-97); Mean Platelet Volume 8.1 fL (7.4-10.4); Nucleated Red Blood Cells % 0.1; Platelet Count 244 10^3/uL (150-450); Red Blood Count 4.27 10^6 /uL (3.70-4.87); Red Cell Distribution Width 15 % (10.5-15); White Blood Count 5.4 10^3/uL (3.5-10.8)
[2019-01-14 06:20] LABS: Calcium 8.9 mg/dL (8.6-10.3); Potassium 4.3 mmol/L (3.5-5.0)
[2019-01-14 06:25] LABS: BUN/Creatinine Ratio 29.6 (8-20); EGFR African American 107.2 (>60); EGFR Non-African American 88.6 (>60)
[2019-01-14] MEDS: Polyethylene Glycol 3350* 17 GM PACKET PO SCH ×2 (08:07→22:39)
[2019-01-14] MEDS: Fluticasone NASAL SPRAY 50MCG* 16 gm SPRAY BTL BOTH NARES SCH (08:07)
[2019-01-14] MEDS: Cetirizine* 10 MG TAB PO SCH (08:08)
[2019-01-14] MEDS: Pantoprazole TAB * 40 MG TAB PO SCH (08:08)
[2019-01-14] MEDS: FLUoxetine CAP* 10 MG PO SCH (08:08)
[2019-01-14] MEDS: metroNIDAZOLE IV 500 MG/100ML* 500 MG/100 ML BAG IVPB SCH ×2 (08:10→21:06)
[2019-01-14] MEDS: Pregabalin CAP(*) 25 MG PO SCH ×3 (10:29→22:44)
--- NOTE | 2019-01-14 11:43 | PN ---
Progress Note - Progress Note Date of Service: 01/14/19 SOAP: Subjective: [Pt is doing well, pain is controlled with medications. Pt has no complaints today. She is scheduled for L BKA on Tuesday with Dr. Appiah. Her wound VAC was removed today and was replaced with dry dressing. Pt denies CP, SOB, f/c.] Objective: [General: A&O x 3. NAD lying in bed. LLE: Calf soft and NT. Positive plantarflexion contracture. No dorsiflexion. Insensate below mid-calf. DP not palpable. Persistant plantar ulcer, no signs of infection. Mild maceration between toes.] Vital Signs Temp Pulse Resp BP Pulse Ox 98.4 F 72 18 97/58 94 01/14/19 07:44 01/14/19 07:44 01/14/19 10:30 01/14/19 07:44 01/14/19 08:00 Abnormal Lab Results 01/14/19 01/14/19 01/14/19 05:30 05:30 07:52 WBC 5.4 RBC 4.27 Hgb 11.5 L Hct 36 MCV 85 MCH 27 MCHC 32 RDW 15 Plt Count 244 MPV 8.1 Neut % (Auto) 47.9 Lymph % (Auto) 36.7 [place] % (Auto) 12.5 Eos % (Auto) 1.6 Baso % (Auto) 1.3 Absolute Neuts (auto) 2.6 Absolute Lymphs (auto) 2.0 Absolute Monos (auto) 0.7 Absolute Eos (auto) 0.1 Absolute Basos (auto) 0.1 Absolute Nucleated RBC 0.0 Nucleated RBC % 0.1 Sodium 137 Potassium 4.3 Chloride 104 Carbon Dioxide 24 Anion Gap 9 BUN 21 Creatinine 0.71 Est GFR ( Amer) 107.2 Est GFR (Non-Af Amer) 88.6 BUN/Creatinine Ratio 29.6 H Glucose 110 H POC Glucose (mg/dL) 93 Calcium 8.9 Assessment: [L foot plantarflexion contracture with persistant plantar ulcer.] Plan: [Dry dressing change as needed Continue NWB LLE Continue ABX Scheduled for BKA Tuesday ]
--- NOTE | 2019-01-14 15:12 | PN ---
Subjective Date of Service: 01/14/19 Interval History: Pt is upset about having to wait for the surgery till Tuesday. Vac dressing was removed today by ortho Objective Active Medications: Acetaminophen (Tylenol Tab*) 650 mg PO Q4H PRN PRN Reason: FEVER/PAIN Last Admin: 01/10/19 00:26 Dose: 650 mg Al Hydrox/Mg Hydrox/Simethicone (Maalox Plus*) 30 ml PO Q6H PRN PRN Reason: INDIGESTION Last Admin: 01/09/19 20:08 Dose: 30 ml Albuterol (Ventolin Hfa Inhaler*) 2 puff INH Q4H PRN PRN Reason: SOB/WHEEZING Last Admin: 01/10/19 12:13 Dose: 2 puff Cetirizine HCl (Zyrtec*) 10 mg PO DAILY [facility] Last Admin: 01/14/19 08:08 Dose: 10 mg Docusate Sodium (Colace Cap*) 100 mg PO BID PRN PRN Reason: CONSTIPATION Last Admin: 01/12/19 08:59 Dose: 100 mg Fluoxetine HCl (Prozac Cap*) 30 mg PO DAILY [facility] Last Admin: 01/14/19 08:08 Dose: 30 mg Fluticasone Propionate (Flonase Nasal [place] 50mcg*) 2 spray BOTH NARES DAILY [facility] Last Admin: 01/14/19 08:07 Dose: 2 spray Heparin Sodium (Porcine) (Heparin Vial(*)) 5,000 units SUBCUT Q8HR [facility] Last Admin: 01/14/19 14:55 Dose: 5,000 units Metronidazole/Sodium Chloride (Flagyl 500 Mg Ivpb*) 500 mg in 100 mls @ 100 mls /hr IVPB 0830,2030 [facility] Last Admin: 01/14/19 08:10 Dose: 100 mls/hr Ceftriaxone Sodium 1 gm/ (Sodium Chloride) 50 mls @ 200 mls/hr IVPB Q24H [facility] Last Admin: 01/13/19 17:13 Dose: 200 mls/hr Lorazepam (Ativan Tab(*)) 0.5 mg PO BID PRN PRN Reason: ANXIETY Last Admin: 01/12/19 18:07 Dose: 0.5 mg Methadone HCl (Dolophine Tab*) 15 mg PO Q8H [facility] Last Admin: 01/14/19 14:56 Dose: 15 mg Montelukast Sodium (Singulair Tab*) 10 mg PO BEDTIME [facility] Last Admin: 01/13/19 21:09 Dose: 10 mg Nicotine Polacrilex (Nicotine Gum*) 2 mg PO Q2H PRN PRN Reason: CRAVING Last Admin: 01/13/19 12:24 Dose: 2 mg Ondansetron HCl (Zofran Inj*) 4 mg IV Q4H PRN PRN Reason: NAUSEA/VOMITING Oxycodone/Acetaminophen (Percocet 5/325 Tab*) 1 tab PO Q3H PRN PRN Reason: PAIN - MODERATE Last Admin: 01/13/19 12:24 Dose: 1 tab Pantoprazole Sodium (Protonix Tab*) 40 mg PO DAILY [facility] Last Admin: 01/14/19 08:08 Dose: 40 mg Polyethylene Glycol/Electrolytes (Miralax*) 17 gm PO BID [facility] Last Admin: 01/14/19 08:07 Dose: 17 gm Pregabalin (Lyrica Cap(*)) 75 mg PO TID [facility] Last Admin: 01/14/19 14:57 Dose: 75 mg Senna (Senokot Tab*) 1 tab PO BID PRN PRN Reason: CONSTIPATION Last Admin: 01/12/19 08:59 Dose: 1 tab Sodium Biphosphate/Sodium Phosphate (Fleet Enema*) 1 bottle [place] DAILY PRN PRN Reason: CONSTIPATION Last Admin: 01/08/19 13:58 Dose: 1 bottle Trazodone HCl (Desyrel Tab*) 300 mg PO BEDTIME [facility] Last Admin: 01/13/19 21:09 Dose: 300 mg Vital Signs - 8 hr 01/14/19 01/14/19 01/14/19 07:15 07:44 08:00 Temperature 98.4 F 98.4 F Pulse Rate 72 72 Respiratory 18 18 18 Rate Blood Pressure 97/58 97/58 (mmHg) O2 Sat by Pulse 94 94 94 Oximetry 01/14/19 01/14/19 01/14/19 10:29 10:30 11:12 Temperature 98.0 F Pulse Rate 70 Respiratory 18 18 18 Rate Blood Pressure 93/53 (mmHg) O2 Sat by Pulse 97 Oximetry 01/14/19 01/14/19 01/14/19 13:16 14:56 14:57 Temperature Pulse Rate Respiratory 8 16 Rate Blood Pressure (mmHg) O2 Sat by Pulse 97 Oximetry Oxygen Devices in Use Now: None Appearance: 48 yo f in nAD, AAOx3 Eyes: No Scleral Icterus, PERRLA Ears/Nose/Mouth/Throat: NL Teeth, Lips, Gums, Mucous Membranes Moist Neck: NL Appearance and Movements; NL JVP, Trachea Midline Respiratory: Symmetrical Chest Expansion and Respiratory Effort, Clear to Auscultation Cardiovascular: NL Sounds; No Murmurs; No JVD, RRR Abdominal: NL Sounds; No Tenderness; No Distention Lymphatic: No Cervical Adenopathy Extremities: No Edema, No Clubbing, Cyanosis Skin: No Nodules or Sclerosis, - - wound at bottom of left foot noted Neurological: Alert and Oriented x 3, - - left foot drop Result Diagrams: 01/14/19 05:30 01/14/19 05:30 Additional Lab and Data: Lab Results 01/03/19 01/03/19 01/03/19 Range/Units 21:09 21:09 21:09 WBC 11.0 H (3.5-10.8) 10^3/uL RBC 4.51 (3.70-4.87) 10^6 /uL Hgb 12.1 (12.0-16.0) g/dL Hct 36 (33-41) % MCV 80 (80-97) fL MCH 27 (27-31) pg MCHC 34 (31-36) g/dL RDW 14 (10.5-15) % Plt Count 533 H (150-450) 10^3/uL MPV 7.9 (7.4-10.4) fL Neut % (Auto) 64.7 % Lymph % (Auto) 21.3 % [place] % (Auto) 12.7 % Eos % (Auto) 0.5 % Baso % (Auto) 0.8 % Absolute Neuts (auto) 7.1 (1.5-7.7) 10^3/ul Absolute Lymphs (auto) 2.3 (1.0-4.8) 10^3/ul Absolute Monos (auto) 1.4 H (0-0.8) 10^3/ul Absolute Eos (auto) 0.1 (0-0.6) 10^3/ul Absolute Basos (auto) 0.1 (0-0.2) 10^3/ul Absolute Nucleated RBC 0 10^3/ul Nucleated RBC % 0 ESR Pending Sodium 136 (135-145) mmol/L Potassium 3.0 L (3.5-5.0) mmol/L Chloride 96 L (101-111) mmol/L Carbon Dioxide 28 (22-32) mmol/L Anion Gap 12 H (2-11) mmol/L BUN 8 (6-24) mg/dL Creatinine 0.78 (0.51-0.95) mg/dL Est GFR ( Amer) 96.2 (>60) Est GFR (Non-Af Amer) 79.5 (>60) BUN/Creatinine Ratio 10.3 (8-20) Glucose 78 (70-100) mg/dL Lactic Acid 0.9 (0.5-2.0) mmol/L Calcium 9.5 (8.6-10.3) mg/dL Total Bilirubin 0.30 (0.2-1.0) mg/dL AST 22 (13-39) U/L ALT 15 (7-52) U/L Alkaline Phosphatase 256 H (34-104) U/L C-Reactive Protein Pending Total Protein 7.5 (6.4-8.9) g/dL Albumin 3.9 (3.2-5.2) g/dL Globulin 3.6 (2-4) g/dL Albumin/Globulin Ratio 1.1 (1-3) TSH 0.79 (0.34-5.60) mcIU/mL Beta HCG, Quant 1.24 mIU/mL Salicylates < 2.50 (<30) mg/dL Acetaminophen < 15 mcg/mL Serum Alcohol < 10 (<10) mg/dL Microbiology and Other Data: Microbiology 01/04/19 00:37 Gram Stain - Final Foot Left 01/04/19 01:24 Skin and Soft Tissue MRSA/MSSA (PCR - Final Foot Left Mrsa Negative S.aureus Positive Assess/Plan/Problems-Billing Assessment: 47 yo F with H polysubstance abuse, hepatitis C , anxiety/ depression, with recent history of left leg compartment syndrome after syncope and collapse on 09/18, rhabdo, s/p 4 fasciotomies, and multiple I&Ds now living alone presented back to the ED on 01/04 with SI and was noted to have L foot wound - Patient Problems (1) Anxiety and depression Comment: With SI that so far resolved Appreciate psychiatry consult-cont Prozac, Trazadone 1:1 obs d/c'd on 01/06/19 (2) Osteomyelitis Comment: acute s/p debridement in OR on 01/04/19-now VAC in place cont ceftriaxone/flagyl. MRSA wound cx neg-d/c Vanc Wound cx positive for Providencia, Haemophilus, Prevotella, Peptoniphilus ID following; will await final recommendations re: senior living abx plans plan for BKA Tuesday (3) Chronic, continuous use of opioids Comment: Dr. Cabrera adjusted pain meds (4) Polysubstance (including opioids) dependence w/o physiol dependence Comment: UDS positive for cocaine, amphetamines, cannabis at admission (5) Hypotension Comment: pt asymptomatic, non toxic appearing, Has had chronically low BP (6) DVT prophylaxis Comment: SCD's Status and Disposition: inpatient
[2019-01-14] MEDS: cefTRIAXone(*) 1 GM in NS 0.9% 50 ML* 50 ML IVPB SCH (18:00)
[2019-01-14] MEDS: Montelukast Sodium TAB* 10 MG PO SCH (22:31)
[2019-01-14] MEDS: oxyCODONE/Acetamin 5/325 MG* TAB PO PRN (22:36)
[2019-01-14] MEDS: traZODone TAB* 100 MG PO SCH (22:44)
[2019-01-15 05:50] LABS: ABS Basophils 0.1 10^3/ul (0-0.2); ABS Eosinophils 0.1 10^3/ul (0-0.6); ABS Lymphocytes 2.7 10^3/ul (1.0-4.8); ABS Monocytes 0.9 10^3/ul (0-0.8); ABS Neutrophils 2.7 10^3/ul (1.5-7.7); Eosinophil % 2.1 %; Hematocrit 34 % (35-47); Hemoglobin 11.3 g/dL (12.0-16.0); Lymphocyte % 41.2 %; Mean Corpuscular HGB Conc 33 g/dL (31-36); Mean Corpuscular Hemoglobin 27 pg (27-31); Mean Corpuscular Volume 80 fL (80-97); Mean Platelet Volume 8.2 fL (7.4-10.4); Nucleated Red Blood Cells % 0.1; Platelet Count 293 10^3/uL (150-450); Red Blood Count 4.24 10^6 /uL (3.70-4.87); Red Cell Distribution Width 15 % (10.5-15); White Blood Count 6.5 10^3/uL (3.5-10.8)
[2019-01-15 06:09] LABS: Albumin 3.3 g/dL (3.2-5.2); Albumin/Globulin Ratio 1.2 (1-3); BUN/Creatinine Ratio 23.9 (8-20); C Reactive Protein 1.58 mg/L (<8.01); EGFR African American 107.2 (>60); EGFR Non-African American 88.6 (>60); Globulin 2.8 g/dL (2-4); Potassium 3.9 mmol/L (3.5-5.0); Total Bilirubin 0.2 mg/dL (0.2-1.0); Total Protein 6.1 g/dL (6.4-8.9)
[2019-01-15] MEDS: Methadone TAB* 5 MG PO SCH ×3 (06:25→15:01)
[2019-01-15] MEDS: Heparin VIAL(*) 5000 UNITS/ML VIAL (FIVE THOUSAND) SUBCUT SCH ×2 (06:27→15:04)
--- NOTE | 2019-01-15 08:36 | PN ---
Progress Note - Progress Note Date of Service: 01/15/19 SOAP: Subjective: CC: Left foot infection HPI: Ms. Trujillo is a 48 yo female with PMH significant for polysubstance abuse, and history of a left lower extremity compartment syndrome in 09/2018 with complicated postoperative course who presented to the hospital with complaints of SI and left foot wound. Worried about pain after surgery. Denies fever, chills, shortness of breath, chest discomfort, N/V/D. States that she moved her bowels yesterday. States that she feels really "wiped out" and feels it is because of the infection. She is planning on a left BKA with orthopedics tomorrow. Objective: Vital Signs 01/15/19 01/15/19 01/15/19 06:25 07:23 08:19 Temperature 98.0 F 98.1 F Pulse Rate 69 69 Respiratory 17 14 12 Rate Blood Pressure 89/56 90/56 (mmHg) O2 Sat by Pulse 95 96 Oximetry Physical Exam: General: NAD, laying in bed Neurological: Drowsy and oriented x 4 HEENT: Moist MM, no thrush Cardiovascular:Heart rate regular Respiratory: Lung sounds clear Abdominal: Bowel sounds present; ABD soft, non tender and non distended Skin: Dressing to left foot clean, dry and intact. No rash Laboratory Results - last 24 hr 01/14/19 01/15/19 01/15/19 07:52 05:18 05:18 WBC 6.5 RBC 4.24 Hgb 11.3 L Hct 34 L MCV 80 MCH 27 MCHC 33 RDW 15 Plt Count 293 MPV 8.2 Neut % (Auto) 41.5 Lymph % (Auto) 41.2 [place] % (Auto) 14.0 Eos % (Auto) 2.1 Baso % (Auto) 1.2 Absolute Neuts (auto) 2.7 Absolute Lymphs (auto) 2.7 Absolute Monos (auto) 0.9 H Absolute Eos (auto) 0.1 Absolute Basos (auto) 0.1 Absolute Nucleated RBC 0.0 Nucleated RBC % 0.1 Sodium 137 Potassium 3.9 Chloride 104 Carbon Dioxide 25 Anion Gap 8 BUN 17 Creatinine 0.71 Est GFR ( Amer) 107.2 Est GFR (Non-Af Amer) 88.6 BUN/Creatinine Ratio 23.9 H Glucose 107 H POC Glucose (mg/dL) 93 Calcium 9.0 Total Bilirubin 0.20 AST 19 ALT 8 Alkaline Phosphatase 111 H C-Reactive Protein 1.58 Total Protein 6.1 L Albumin 3.3 Globulin 2.8 Albumin/Globulin Ratio 1.2 Microbiology 01/04/19 16:45 Anaerobic Culture - Final Wound Prevotella Melaninogenica Acid Fast Bacilli Smear - Final 01/03/19 21:08 Aerobic Blood Culture - Final Blood Venous No Growth Day 5 Anaerobic Blood Culture - Final No Growth Day 5 01/03/19 21:08 Aerobic Blood Culture - Final Blood Venous No Growth Day 5 Anaerobic Blood Culture - Final No Growth Day 5 01/04/19 00:37 Gram Stain - Final Foot Left Wound Culture - Final Alcaligenes Species Providencia Rettgeri Peptoniphilus Asaccharolyticus Normal Rody 01/04/19 16:45 Gram Stain - Final Foot Left Wound Culture - Final Haemophilus Parainfluenzae Normal Rody 01/04/19 01:24 Skin and Soft Tissue MRSA/MSSA (PCR - Final Foot Left Mrsa Negative S.aureus Positive Assessment: 1. Left foot infection with osteomyelitis. Multiple organisms growing in her wound cultures including Haemophilus parainfluenzae, Staphylococcus aureus, alcaligenes species, Providencia rettgeri, Peptoniphilus asaccharolyticus, methicillin-resistant Staphylococcus aureus negative. Anaerobic cultures with Prevotella Melaninogenica. Blood cultures with no growth to date. S/P left foot I+D and placement of wound vac on 01/04/[address] Appiah. S/P left foot wound debridement and wound vac dressing change on 01/07/[address] Wen. Afebrile and no leukocytosis. CRP no longer elevated. Orthopedics has scheduled a left BKA for tomorrow. 2. Chronic pain. Plan: Continue ceftriaxone 1 g IV daily, day AND Flagyl 500 mg twice daily, day 12. Weekly labs while on IV ABX: CBC, CMP, and CRP.
[2019-01-15] MEDS: Pantoprazole TAB * 40 MG TAB PO SCH (08:50)
[2019-01-15] MEDS: Cetirizine* 10 MG TAB PO SCH (08:50)
[2019-01-15] MEDS: FLUoxetine CAP* 10 MG PO SCH (08:50)
[2019-01-15] MEDS: metroNIDAZOLE IV 500 MG/100ML* 500 MG/100 ML BAG IVPB SCH ×2 (08:50→20:59)
[2019-01-15] MEDS: Polyethylene Glycol 3350* 17 GM PACKET PO SCH (08:51)
[2019-01-15] MEDS: Acetaminophen TAB* 325 MG PO PRN ×2 (08:56→15:02)
[2019-01-15] MEDS: Pregabalin CAP(*) 25 MG PO SCH ×2 (08:58→14:21)
--- NOTE | 2019-01-15 12:26 | PN ---
Subjective Date of Service: 01/15/19 Interval History: Pt feels well. awaiting surgery tomorrow Objective Active Medications: Acetaminophen (Tylenol Tab*) 650 mg PO Q4H PRN PRN Reason: FEVER/PAIN Last Admin: 01/15/19 08:56 Dose: 650 mg Al Hydrox/Mg Hydrox/Simethicone (Maalox Plus*) 30 ml PO Q6H PRN PRN Reason: INDIGESTION Last Admin: 01/09/19 20:08 Dose: 30 ml Albuterol (Ventolin Hfa Inhaler*) 2 puff INH Q4H PRN PRN Reason: SOB/WHEEZING Last Admin: 01/10/19 12:13 Dose: 2 puff Cetirizine HCl (Zyrtec*) 10 mg PO DAILY [facility] Last Admin: 01/15/19 08:50 Dose: 10 mg Docusate Sodium (Colace Cap*) 100 mg PO BID PRN PRN Reason: CONSTIPATION Last Admin: 01/12/19 08:59 Dose: 100 mg Fluoxetine HCl (Prozac Cap*) 30 mg PO DAILY [facility] Last Admin: 01/15/19 08:50 Dose: 30 mg Fluticasone Propionate (Flonase Nasal [place] 50mcg*) 2 spray BOTH NARES DAILY [facility] Last Admin: 01/14/19 08:07 Dose: 2 spray Heparin Sodium (Porcine) (Heparin Vial(*)) 5,000 units SUBCUT Q8HR [facility] Last Admin: 01/15/19 06:27 Dose: 5,000 units Metronidazole/Sodium Chloride (Flagyl 500 Mg Ivpb*) 500 mg in 100 mls @ 100 mls /hr IVPB 0830,2030 [facility] Last Admin: 01/15/19 08:50 Dose: 100 mls/hr Ceftriaxone Sodium 1 gm/ (Sodium Chloride) 50 mls @ 200 mls/hr IVPB Q24H [facility] Last Admin: 01/14/19 18:00 Dose: 200 mls/hr Lorazepam (Ativan Tab(*)) 0.5 mg PO BID PRN PRN Reason: ANXIETY Last Admin: 01/12/19 18:07 Dose: 0.5 mg Methadone HCl (Dolophine Tab*) 15 mg PO Q8H [facility] Last Admin: 01/15/19 06:25 Dose: 15 mg Montelukast Sodium (Singulair Tab*) 10 mg PO BEDTIME [facility] Last Admin: 01/14/19 22:31 Dose: 10 mg Nicotine Polacrilex (Nicotine Gum*) 2 mg PO Q2H PRN PRN Reason: CRAVING Last Admin: 01/13/19 12:24 Dose: 2 mg Ondansetron HCl (Zofran Inj*) 4 mg IV Q4H PRN PRN Reason: NAUSEA/VOMITING Oxycodone/Acetaminophen (Percocet 5/325 Tab*) 1 tab PO Q3H PRN PRN Reason: PAIN - MODERATE Last Admin: 01/14/19 22:36 Dose: 1 tab Pantoprazole Sodium (Protonix Tab*) 40 mg PO DAILY [facility] Last Admin: 01/15/19 08:50 Dose: 40 mg Polyethylene Glycol/Electrolytes (Miralax*) 17 gm PO BID [facility] Last Admin: 01/15/19 08:51 Dose: 17 gm Pregabalin (Lyrica Cap(*)) 75 mg PO TID [facility] Last Admin: 01/15/19 08:58 Dose: Not Given Senna (Senokot Tab*) 1 tab PO BID PRN PRN Reason: CONSTIPATION Last Admin: 01/12/19 08:59 Dose: 1 tab Sodium Biphosphate/Sodium Phosphate (Fleet Enema*) 1 bottle [place] DAILY PRN PRN Reason: CONSTIPATION Last Admin: 01/08/19 13:58 Dose: 1 bottle Trazodone HCl (Desyrel Tab*) 300 mg PO BEDTIME [facility] Last Admin: 01/14/19 22:44 Dose: Not Given Vital Signs - 8 hr 01/15/19 01/15/19 01/15/19 06:25 07:23 08:00 Temperature 98.0 F Pulse Rate 69 Respiratory 17 14 14 Rate Blood Pressure 89/56 (mmHg) O2 Sat by Pulse 95 94 Oximetry 01/15/19 01/15/19 01/15/19 08:19 08:57 11:00 Temperature 98.1 F 97.4 F Pulse Rate 69 72 Respiratory 12 14 14 Rate Blood Pressure 90/56 82/54 (mmHg) O2 Sat by Pulse 96 94 Oximetry Oxygen Devices in Use Now: None Appearance: 48 yo F in nAD, AAOx3 Eyes: No Scleral Icterus, PERRLA Ears/Nose/Mouth/Throat: NL Teeth, Lips, Gums, Mucous Membranes Moist Neck: NL Appearance and Movements; NL JVP, Trachea Midline Respiratory: Symmetrical Chest Expansion and Respiratory Effort, Clear to Auscultation Cardiovascular: NL Sounds; No Murmurs; No JVD Abdominal: NL Sounds; No Tenderness; No Distention Lymphatic: No Cervical Adenopathy Extremities: No Clubbing, Cyanosis, - - left foot in post op dressings, bottom of left foot wound noted Skin: No Nodules or Sclerosis, - - small covered with eschar ulcer at tip of R 3rd toe Neurological: Alert and Oriented x 3, - - left foot drop Result Diagrams: 01/15/19 05:18 01/15/19 05:18 Additional Lab and Data: Lab Results 01/03/19 01/03/19 01/03/19 Range/Units 21:09 21:09 21:09 WBC 11.0 H (3.5-10.8) 10^3/uL RBC 4.51 (3.70-4.87) 10^6 /uL Hgb 12.1 (12.0-16.0) g/dL Hct 36 (33-41) % MCV 80 (80-97) fL MCH 27 (27-31) pg MCHC 34 (31-36) g/dL RDW 14 (10.5-15) % Plt Count 533 H (150-450) 10^3/uL MPV 7.9 (7.4-10.4) fL Neut % (Auto) 64.7 % Lymph % (Auto) 21.3 % [place] % (Auto) 12.7 % Eos % (Auto) 0.5 % Baso % (Auto) 0.8 % Absolute Neuts (auto) 7.1 (1.5-7.7) 10^3/ul Absolute Lymphs (auto) 2.3 (1.0-4.8) 10^3/ul Absolute Monos (auto) 1.4 H (0-0.8) 10^3/ul Absolute Eos (auto) 0.1 (0-0.6) 10^3/ul Absolute Basos (auto) 0.1 (0-0.2) 10^3/ul Absolute Nucleated RBC 0 10^3/ul Nucleated RBC % 0 ESR Pending Sodium 136 (135-145) mmol/L Potassium 3.0 L (3.5-5.0) mmol/L Chloride 96 L (101-111) mmol/L Carbon Dioxide 28 (22-32) mmol/L Anion Gap 12 H (2-11) mmol/L BUN 8 (6-24) mg/dL Creatinine 0.78 (0.51-0.95) mg/dL Est GFR ( Amer) 96.2 (>60) Est GFR (Non-Af Amer) 79.5 (>60) BUN/Creatinine Ratio 10.3 (8-20) Glucose 78 (70-100) mg/dL Lactic Acid 0.9 (0.5-2.0) mmol/L Calcium 9.5 (8.6-10.3) mg/dL Total Bilirubin 0.30 (0.2-1.0) mg/dL AST 22 (13-39) U/L ALT 15 (7-52) U/L Alkaline Phosphatase 256 H (34-104) U/L C-Reactive Protein Pending Total Protein 7.5 (6.4-8.9) g/dL Albumin 3.9 (3.2-5.2) g/dL Globulin 3.6 (2-4) g/dL Albumin/Globulin Ratio 1.1 (1-3) TSH 0.79 (0.34-5.60) mcIU/mL Beta HCG, Quant 1.24 mIU/mL Salicylates < 2.50 (<30) mg/dL Acetaminophen < 15 mcg/mL Serum Alcohol < 10 (<10) mg/dL Microbiology and Other Data: Microbiology 01/04/19 00:37 Gram Stain - Final Foot Left 01/04/19 01:24 Skin and Soft Tissue MRSA/MSSA (PCR - Final Foot Left Mrsa Negative S.aureus Positive Assess/Plan/Problems-Billing Assessment: 47 yo F with [facility] polysubstance abuse, hepatitis C , anxiety/ depression, with recent history of left leg compartment syndrome after syncope and collapse on 09/18, rhabdo, s/p 4 fasciotomies, and multiple I&Ds now living alone presented back to the ED on 01/04 with SI and was noted to have L foot wound - Patient Problems (1) Anxiety and depression Comment: With SI that so far resolved Appreciate psychiatry consult-cont Prozac, Trazadone 1:1 obs d/c'd on 01/06/19 (2) Osteomyelitis Comment: acute s/p debridement in OR on 01/04/19 cont ceftriaxone/flagyl. Wound cx positive for Providencia, Haemophilus, Prevotella, Peptoniphilus ID following; will await final recommendations re: half-way abx plans plan for BKA Tuesday (3) Chronic, continuous use of opioids Comment: Dr. Cabrera adjusted pain meds (4) Polysubstance (including opioids) dependence w/o physiol dependence Comment: UDS positive for cocaine, amphetamines, cannabis at admission (5) Hypotension Comment: pt asymptomatic, non toxic appearing, Has had chronically low BP (6) DVT prophylaxis Comment: SCD's Status and Disposition: inpatient
[2019-01-15] MEDS: Fluticasone NASAL SPRAY 50MCG* 16 gm SPRAY BTL BOTH NARES SCH (12:59)
[2019-01-15] MEDS: NS 0.9% 1000 ML** 1,000 ML IV SCH (15:00)
--- NOTE | 2019-01-15 15:06 | PN ---
Progress Note - Progress Note Date of Service: 01/15/19 SOAP: Subjective: []Ms. Trujillo feels well today without complaints. She has contact another patient who is s/p BKA for support and has exchanged text messages, she anticipates a phone call later today. Denies fever, chills, CP, SOB, dizziness, nausea. Objective: []General: NAD, alert and oriented to person, place and time. Carries on appropriate conversation. LLE: Dressing CDI, no discharge and no erythema. Foot is pale and insensate. + Plantarflexion contracture. Assessment: []L foot plantarflexion contracture with persistant plantar ulcer Plan: Dry dressing change as needed Continue NWB LLE Continue ceftriaxone. Discussed with ID, anticipate antibiotic can be stopped after BKA Patient is aware of and agreeable to left below knee amputation tomorrow 01/[address] Appaih. All of her questions were answered. Hold heparin at midnight, NPO at midnight Vital Signs Temp 97.4 F 01/15/19 15:08 Pulse 70 01/15/19 15:08 Resp 12 01/15/19 15:08 BP 97/51 01/15/19 15:08 Pulse Ox 95 01/15/19 15:08 Intake & Output 01/14/19 01/15/19 01/15/19 18:59 06:59 18:59 Intake Total 1338 285 540 Balance 1338 285 540 Intake: IV Fluids 138 25 ABX - FLAGYL 108 25 ceftriaxone 30 IVPB 150 ABX - FLAGYL 100 ceftriaxone 50 Oral 1200 110 540 Other: Estimated Void Medium Medium # Bowel Movements 1 0 Estimated Stool Amount Small # Voids 1 0 Laboratory Last Values WBC 6.5 10^3/uL (3.5-10.8) 01/15/19 05:18 RBC 4.24 10^6 /uL (3.70-4.87) 01/15/19 05:18 Hgb 11.3 g/dL (12.0-16.0) L 01/15/19 05:18 Hct 34 % (35-47) L 01/15/19 05:18 MCV 80 fL (80-97) 01/15/19 05:18 MCH 27 pg (27-31) 01/15/19 05:18 MCHC 33 g/dL (31-36) 01/15/19 05:18 RDW 15 % (10.5-15) 01/15/19 05:18 Plt Count 293 10^3/uL (150-450) 01/15/19 05:18 MPV 8.2 fL (7.4-10.4) 01/15/19 05:18 Neut % (Auto) 41.5 % 01/15/19 05:18 Lymph % (Auto) 41.2 % 01/15/19 05:18 [place] % (Auto) 14.0 % 01/15/19 05:18 Eos % (Auto) 2.1 % 01/15/19 05:18 Baso % (Auto) 1.2 % 01/15/19 05:18 Absolute Neuts (auto) 2.7 10^3/ul (1.5-7.7) 01/15/19 05:18 Absolute Lymphs (auto) 2.7 10^3/ul (1.0-4.8) 01/15/19 05:18 Absolute Monos (auto) 0.9 10^3/ul (0-0.8) H 01/15/19 05:18 Absolute Eos (auto) 0.1 10^3/ul (0-0.6) 01/15/19 05:18 Absolute Basos (auto) 0.1 10^3/ul (0-0.2) 01/15/19 05:18 Absolute Nucleated RBC 0.0 10^3/ul 01/15/19 05:18 Nucleated RBC % 0.1 01/15/19 05:18 ESR > 120 mm/Hr (0-19) H 01/03/19 21:09 Sodium 137 mmol/L (135-145) 01/15/19 05:18 Potassium 3.9 mmol/L (3.5-5.0) 01/15/19 05:18 Chloride 104 mmol/L (101-111) 01/15/19 05:18 Carbon Dioxide 25 mmol/L (22-32) 01/15/19 05:18 Anion Gap 8 mmol/L (2-11) 01/15/19 05:18 BUN 17 mg/dL (6-24) 01/15/19 05:18 Creatinine 0.71 mg/dL (0.51-0.95) 01/15/19 05:18 Est GFR ( Amer) 107.2 (>60) 01/15/19 05:18 Est GFR (Non-Af Amer) 88.6 (>60) 01/15/19 05:18 BUN/Creatinine Ratio 23.9 (8-20) H 01/15/19 05:18 Glucose 107 mg/dL (70-100) H 01/15/19 05:18 POC Glucose (mg/dL) 93 mg/dL (70-100) 01/14/19 07:52 Lactic Acid 1.4 mmol/L (0.5-2.0) 01/08/19 06:03 Calcium 9.0 mg/dL (8.6-10.3) 01/15/19 05:18 Magnesium 2.0 mg/dL (1.9-2.7) 01/07/19 07:06 Total Bilirubin 0.20 mg/dL (0.2-1.0) 01/15/19 05:18 AST 19 U/L (13-39) 01/15/19 05:18 ALT 8 U/L (7-52) 01/15/19 05:18 Alkaline Phosphatase 111 U/L (34-104) H 01/15/19 05:18 C-Reactive Protein 1.58 mg/L (<8.01) 01/15/19 05:18 Total Protein 6.1 g/dL (6.4-8.9) L 01/15/19 05:18 Albumin 3.3 g/dL (3.2-5.2) 01/15/19 05:18 Globulin 2.8 g/dL (2-4) 01/15/19 05:18 Albumin/Globulin Ratio 1.2 (1-3) 01/15/19 05:18 TSH 0.79 mcIU/mL (0.34-5.60) 01/03/19 21:09 Beta HCG, Quant 1.24 mIU/mL 01/03/19 21:09 Salicylates < 2.50 mg/dL (<30) 01/03/19 21:09 Urine Opiates Screen None detected (None Detect) 01/04/19 01:45 Acetaminophen < 15 mcg/mL 01/03/19 21:09 Ur Barbiturates Screen None detected (None Detect) 01/04/19 01:45 Ur Phencyclidine Scrn None detected (None Detect) 01/04/19 01:45 Ur Amphetamines Screen Presumptive positive (None Detect) A 01/04/19 01:45 U Benzodiazepines Scrn None detected (None Detect) 01/04/19 01:45 Urine Cocaine Screen Presumptive positive (None Detect) A 01/04/19 01:45 U Cannabinoids Screen Presumptive positive (None Detect) A 01/04/19 01:45 Serum Alcohol < 10 mg/dL (<10) 01/03/19 21:09
[2019-01-15] MEDS: oxyCODONE/Acetamin 5/325 MG* TAB PO PRN (16:51)
[2019-01-15] MEDS: cefTRIAXone(*) 1 GM in NS 0.9% 50 ML* 50 ML IVPB SCH (18:12)
[2019-01-16] MEDS: Pregabalin CAP(*) 25 MG PO SCH ×4 (00:01→22:53)
[2019-01-16] MEDS: traZODone TAB* 100 MG PO SCH ×2 (00:02→22:50)
[2019-01-16] MEDS: Methadone TAB* 5 MG PO SCH ×4 (00:02→22:50)
[2019-01-16] MEDS: Polyethylene Glycol 3350* 17 GM PACKET PO SCH ×3 (00:03→20:37)
[2019-01-16] MEDS: Heparin VIAL(*) 5000 UNITS/ML VIAL (FIVE THOUSAND) SUBCUT SCH (00:04)
[2019-01-16] MEDS: Montelukast Sodium TAB* 10 MG PO SCH ×2 (00:05→20:30)
[2019-01-16] MEDS: oxyCODONE/Acetamin 5/325 MG* TAB PO PRN ×2 (05:22→07:57)
[2019-01-16] MEDS ORDERED: oxyCODONE TAB* 5 MG TAB PO PRN (07:57)
[2019-01-16] MEDS ORDERED: Naloxone* 0.4 MG/ML 1 ML VIAL IV PRN (07:57)
[2019-01-16] MEDS ORDERED: HYDROmorphone INJ1* 1 MG/ML SYRINGE IV PRN (07:57)
[2019-01-16] MEDS: metroNIDAZOLE IV 500 MG/100ML* 500 MG/100 ML BAG IVPB SCH ×2 (08:02→20:37)
[2019-01-16] MEDS: NS 0.9% 1000 ML** 1,000 ML IV SCH (08:02)
[2019-01-16] MEDS ORDERED: fentaNYL* 50 MCG/ML 5 ML VIAL (250 MCG VIAL) ONE (10:00)
[2019-01-16] MEDS ORDERED: KETAMINE HCL* 50 MG/ML 10 ML VIAL ONE (10:01)
[2019-01-16] MEDS ORDERED: Midazolam* 1 MG/ML 5 ML VIAL (5 MG) ONE ×2 (10:01→12:13)
[2019-01-16] MEDS: Cetirizine* 10 MG TAB PO SCH (10:17)
[2019-01-16] MEDS: FLUoxetine CAP* 10 MG PO SCH (10:26)
[2019-01-16] MEDS: Fluticasone NASAL SPRAY 50MCG* 16 gm SPRAY BTL BOTH NARES SCH (10:32)
[2019-01-16] MEDS: Pantoprazole TAB * 40 MG TAB PO SCH (10:32)
--- NOTE | 2019-01-16 10:40 | PN ---
Subjective Date of Service: 01/16/19 Interval History: Pt is in better spirits today. Parents by the bedside. awaiting surgery. no new complaints Objective Active Medications: Acetaminophen (Tylenol Tab*) 650 mg PO Q4H PRN PRN Reason: FEVER/PAIN Last Admin: 01/15/19 15:02 Dose: 650 mg Al Hydrox/Mg Hydrox/Simethicone (Maalox Plus*) 30 ml PO Q6H PRN PRN Reason: INDIGESTION Last Admin: 01/09/19 20:08 Dose: 30 ml Albuterol (Ventolin Hfa Inhaler*) 2 puff INH Q4H PRN PRN Reason: SOB/WHEEZING Last Admin: 01/10/19 12:13 Dose: 2 puff Cetirizine HCl (Zyrtec*) 10 mg PO DAILY [facility] Last Admin: 01/16/19 10:17 Dose: Not Given Docusate Sodium (Colace Cap*) 100 mg PO BID PRN PRN Reason: CONSTIPATION Last Admin: 01/12/19 08:59 Dose: 100 mg Fluoxetine HCl (Prozac Cap*) 30 mg PO DAILY [facility] Last Admin: 01/16/19 10:26 Dose: Not Given Fluticasone Propionate (Flonase Nasal [place] 50mcg*) 2 spray BOTH NARES DAILY [facility] Last Admin: 01/16/19 10:32 Dose: Not Given Hydromorphone HCl (Dilaudid Inj1s*) 0.5 mg IV Q10M PRN PRN Reason: PAIN - SEVERE Metronidazole/Sodium Chloride (Flagyl 500 Mg Ivpb*) 500 mg in 100 mls @ 100 mls /hr IVPB 0830,2030 [facility] Last Admin: 01/16/19 08:02 Dose: 100 mls/hr Ceftriaxone Sodium 1 gm/ (Sodium Chloride) 50 mls @ 200 mls/hr IVPB Q24H [facility] Last Admin: 01/15/19 18:12 Dose: 200 mls/hr Sodium Chloride (Ns 0.9% 1000 Ml) 1,000 mls @ 75 mls/hr IV PER RATE [facility] Last Admin: 01/16/19 08:02 Dose: 75 mls/hr Lorazepam (Ativan Tab(*)) 0.5 mg PO BID PRN PRN Reason: ANXIETY Last Admin: 01/12/19 18:07 Dose: 0.5 mg Methadone HCl (Dolophine Tab*) 15 mg PO Q8H [facility] Last Admin: 01/16/19 06:37 Dose: Not Given Montelukast Sodium (Singulair Tab*) 10 mg PO BEDTIME [facility] Last Admin: 01/16/19 00:05 Dose: 10 mg Naloxone HCl (Narcan*) 0.08 mg IV Q2M PRN PRN Reason: severe induced resp depression Nicotine Polacrilex (Nicotine Gum*) 2 mg PO Q2H PRN PRN Reason: CRAVING Last Admin: 01/13/19 12:24 Dose: 2 mg Ondansetron HCl (Zofran Inj*) 4 mg IV Q4H PRN PRN Reason: NAUSEA/VOMITING Oxycodone HCl (Roxycodone Tab*) 10 mg PO ONCE PRN PRN Reason: SEVERE PAIN Oxycodone/Acetaminophen (Percocet 5/325 Tab*) 1 tab PO Q3H PRN PRN Reason: PAIN - MODERATE Last Admin: 01/16/19 07:57 Dose: 1 tab Pantoprazole Sodium (Protonix Tab*) 40 mg PO DAILY [facility] Last Admin: 01/16/19 10:32 Dose: Not Given Polyethylene Glycol/Electrolytes (Miralax*) 17 gm PO BID [facility] Last Admin: 01/16/19 10:32 Dose: Not Given Pregabalin (Lyrica Cap(*)) 75 mg PO TID [facility] Last Admin: 01/16/19 08:06 Dose: Not Given Senna (Senokot Tab*) 1 tab PO BID PRN PRN Reason: CONSTIPATION Last Admin: 01/12/19 08:59 Dose: 1 tab Sodium Biphosphate/Sodium Phosphate (Fleet Enema*) 1 bottle [place] DAILY PRN PRN Reason: CONSTIPATION Last Admin: 01/08/19 13:58 Dose: 1 bottle Trazodone HCl (Desyrel Tab*) 300 mg PO BEDTIME [facility] Last Admin: 01/16/19 00:02 Dose: Not Given Vital Signs - 8 hr 01/16/19 01/16/19 01/16/19 05:22 07:57 08:00 Temperature Pulse Rate Respiratory 18 18 18 Rate Blood Pressure (mmHg) O2 Sat by Pulse 95 Oximetry 01/16/19 01/16/19 08:03 08:22 Temperature 97.6 F Pulse Rate 69 Respiratory 18 18 Rate Blood Pressure 94/55 (mmHg) O2 Sat by Pulse 95 Oximetry Oxygen Devices in Use Now: None Appearance: 48 yo F in NAD, aAOx3 Eyes: No Scleral Icterus, PERRLA Ears/Nose/Mouth/Throat: NL Teeth, Lips, Gums, Mucous Membranes Moist Neck: NL Appearance and Movements; NL JVP, Trachea Midline Respiratory: Symmetrical Chest Expansion and Respiratory Effort, Clear to Auscultation Cardiovascular: NL Sounds; No Murmurs; No JVD, RRR Lymphatic: No Cervical Adenopathy Extremities: No Edema, No Clubbing, Cyanosis Skin: No Nodules or Sclerosis, - - left foot wound noted Neurological: Alert and Oriented x 3, - - left foot drop Result Diagrams: 01/15/19 05:18 01/15/19 05:18 Additional Lab and Data: Lab Results 01/03/19 01/03/19 01/03/19 Range/Units 21:09 21:09 21:09 WBC 11.0 H (3.5-10.8) 10^3/uL RBC 4.51 (3.70-4.87) 10^6 /uL Hgb 12.1 (12.0-16.0) g/dL Hct 36 (33-41) % MCV 80 (80-97) fL MCH 27 (27-31) pg MCHC 34 (31-36) g/dL RDW 14 (10.5-15) % Plt Count 533 H (150-450) 10^3/uL MPV 7.9 (7.4-10.4) fL Neut % (Auto) 64.7 % Lymph % (Auto) 21.3 % [place] % (Auto) 12.7 % Eos % (Auto) 0.5 % Baso % (Auto) 0.8 % Absolute Neuts (auto) 7.1 (1.5-7.7) 10^3/ul Absolute Lymphs (auto) 2.3 (1.0-4.8) 10^3/ul Absolute Monos (auto) 1.4 H (0-0.8) 10^3/ul Absolute Eos (auto) 0.1 (0-0.6) 10^3/ul Absolute Basos (auto) 0.1 (0-0.2) 10^3/ul Absolute Nucleated RBC 0 10^3/ul Nucleated RBC % 0 ESR Pending Sodium 136 (135-145) mmol/L Potassium 3.0 L (3.5-5.0) mmol/L Chloride 96 L (101-111) mmol/L Carbon Dioxide 28 (22-32) mmol/L Anion Gap 12 H (2-11) mmol/L BUN 8 (6-24) mg/dL Creatinine 0.78 (0.51-0.95) mg/dL Est GFR ( Amer) 96.2 (>60) Est GFR (Non-Af Amer) 79.5 (>60) BUN/Creatinine Ratio 10.3 (8-20) Glucose 78 (70-100) mg/dL Lactic Acid 0.9 (0.5-2.0) mmol/L Calcium 9.5 (8.6-10.3) mg/dL Total Bilirubin 0.30 (0.2-1.0) mg/dL AST 22 (13-39) U/L ALT 15 (7-52) U/L Alkaline Phosphatase 256 H (34-104) U/L C-Reactive Protein Pending Total Protein 7.5 (6.4-8.9) g/dL Albumin 3.9 (3.2-5.2) g/dL Globulin 3.6 (2-4) g/dL Albumin/Globulin Ratio 1.1 (1-3) TSH 0.79 (0.34-5.60) mcIU/mL Beta HCG, Quant 1.24 mIU/mL Salicylates < 2.50 (<30) mg/dL Acetaminophen < 15 mcg/mL Serum Alcohol < 10 (<10) mg/dL Microbiology and Other Data: Microbiology 01/04/19 00:37 Gram Stain - Final Foot Left 01/04/19 01:24 Skin and Soft Tissue MRSA/MSSA (PCR - Final Foot Left Mrsa Negative S.aureus Positive Assess/Plan/Problems-Billing Assessment: 47 yo F with [facility] polysubstance abuse, hepatitis C , anxiety/ depression, with recent history of left leg compartment syndrome after syncope and collapse on 09/18, rhabdo, s/p 4 fasciotomies, and multiple I&Ds now living alone presented back to the ED on 01/04 with SI and was noted to have L foot wound - Patient Problems (1) Anxiety and depression Comment: With SI that so far resolved Appreciate psychiatry consult-cont Prozac, Trazadone 1:1 obs d/c'd on 01/06/19 (2) Osteomyelitis Comment: acute s/p debridement in OR on 01/04/19 cont ceftriaxone/flagyl. Wound cx positive for Providencia, Haemophilus, Prevotella, Peptoniphilus ID following; will await final recommendations re: intermediate abx plans plan for BKA today (3) Chronic, continuous use of opioids Comment: Dr. Cabrera adjusted pain meds (4) Polysubstance (including opioids) dependence w/o physiol dependence Comment: UDS positive for cocaine, amphetamines, cannabis at admission (5) Hypotension Comment: pt asymptomatic, non toxic appearing, Has had chronically low BP (6) Peripheral arterial disease Comment: aterior tibial and dorsalis pedis with very poor flow but not able to be stented concern for wound healing potential plan for BKA today (7) DVT prophylaxis Comment: SCD's Status and Disposition: inpatient
--- NOTE | 2019-01-16 11:12 | PN ---
Progress Note - Progress Note Date of Service: 01/16/19 Note: Peyton and I again discussed her situation and options. This included her parents. We discussed again limb salvage versus below the knee amputation. We again discussed the pros/cons and risks/benefits of each at length. They had a bunch of very good questions, all of which were answered. She was able to speak with another patient of [facility], David, who recently had an amputation. She found this very helpful and reassuring. She would like to move forward with a left below the knee amputation. She again expressed this today. Her parents agreed with this decision. Therefore, we will plan on moving forward with a left below the knee amputation. Cj Appiah MD
[2019-01-16] MEDS ORDERED: HYDROmorphone INJ1* 1 MG/ML SYRINGE ONE ×2 (11:46→13:12)
[2019-01-16] MEDS ORDERED: Lidocaine 2% PF * 5 ML VIAL ONE (12:12)
[2019-01-16] MEDS ORDERED: Propofol* 10 MG/ML 20 ML BTL ONE (12:12)
[2019-01-16] MEDS ORDERED: ceFAZolin VIAL(*) VIAL ONE (12:12)
[2019-01-16] MEDS ORDERED: Bupivacaine 0.5%* 50 ML VIAL ONE (12:21)
--- NOTE | 2019-01-16 13:21 | OP ---
Operative Report - Blank - Operative Report Date of Operation: 01/16/19 Note: PATIENT: Peyton Trujillo DATE OF : 1970 DATE OF SURGERY: 01/16/2019 SURGEON: Cj Appiah MD LOOM OPERATOR APPRENTICE: ANN MARIE Marie, whos assistance was necessary for positioning, retraction, help with instrumentation, and closure. ANESTHESIOLOGIST: Dr. Alec Black PREOPERATIVE DIAGNOSIS: Left foot infection with osteomyelitis, plantar ulcer, 5 th metatarsal fracture, and insensate foot. POSTOPERATIVE DIAGNOSIS: Left foot infection with osteomyelitis, plantar ulcer, 5th metatarsal fracture, and insensate foot. OPERATION: Left below the knee amputation ANESTHESIA: GETA IMPLANTS: none TOURNIQUET TIME: Less than 2 hours with a well-padded thigh tourniquet at 250mmHg. SPECIMENS: Foot sent to pathology ESTIMATED BLOOD LOSS: minimal COMPLICATIONS: none STATUS: Stable from the operating room to the recovery room and then back to the hospital floor. INDICATIONS FOR PROCEDURE: Peyton has had a complicated course, which started with a left lower leg compartment syndrome after being found down using IV drugs. She had 4 compartment fasciotomies, followed by multiple irrigation and debridements, and the only remaining viable muscle was the superficial posterior compartment. Additionally, she has a fully insensate foot up to about the level of correction between the knee and ankle. She no longer has a dorsalis pedis artery. She has developed plantar ulcers with underlying osteomyelitis. Additionally, she is a fifth metatarsal fracture that she was unaware of. We have had numerous discussions, and limb salvage has been offered at each of them. She has decided that she would like to move forward with a left [id number] amputation. The nature and risks of surgery were again reviewed in careful detail in the preoperative holding unit. Our discussions regarding the risks of surgery included, but were not limited to, infection, wound problems, nerve injury, neuroma, phantom limb pain, RSD, persistent problems, blood clot, persistent or worsening infection, failure of the surgery, need for further amputation, and even the remote chance of catastrophic complication, including . DESCRIPTION OF PROCEDURE: The patient was seen in the preoperative holding unit and informed written consent was obtained. The appropriate extremity was marked. The patient was then brought to the operating room and carefully positioned on the operating room table. Anesthesia was induced. All bony prominences were padded with great care. A well-padded thigh tourniquet was placed. A chlorhexidine based pre- scrub was performed followed by a chloraprep prep and drape in standard sterile fashion. A surgical safety pause was then conducted in which we confirmed the appropriate patient, extremity, planned procedure, availability of equipment, indication and administration of antibiotics, and DVT prophylaxis in the form of a compression boot on the non-surgical extremity. We began with Esmarch exsanguination of the limb, avoiding the involved foot, and inflated the tourniquet. I utilized a posterior flap-based incision. The tibial osteotomy was measured to be about 15cm below the level of the knee joint. I carefully planned out the incision and then began the incision anteriorly. I dissected down through the anterior compartment musculature and identified the peroneal nerves and anterior tibial neurovascular bundle. The bundle was carefully tied off with 0 silk hand ties and the nerves were transected proximally in the soft tissue. The dissection was carried down to the intermuscular septum. I then dissected medially from the tibial crest. The saphenous nerve and vein were identified and transected proximally and ligated, respectively. I then continued the incision distally both medially and laterally with great care taken to maintain hemostasis. At this point, a malleable retractor was placed posterior to the tibia. I performed a tibial and then fibular osteotomy with an oscillating saw. The fibular osteotomy was made a couple of centimeters proximal to the tibial osteotomy. The leg was then flexed through the osteotomy site and I dissected down the posterior aspect of the tibia and fibula and removed the specimen after completing the posterior incision and coming across the posterior flap distally. The posterior flap was maintained at approximately 15cm in length. Hemostasis was obtained after the leg was passed off to be sent to pathology. I then dissected out the posterior neurovascular bundle. The tibial artery and vein were ligated with 0 silk hand ties. The tibial nerve was then transected proximal to the stump of the remnant tibia. I debulked the posterior flap and removed excess skin and soft tissue from the posterior flap. I identified the sural nerve and transected this as far proximally as possible. I beveled the anterior tibia with a small oscillating saw and used a rasp to smooth the stump. There were no longer any sharp edges. The wound was copiously irrigated. The tourniquet was let down, and hemostasis was obtained. I then used a 2.5 mm drill to drill 2 holes into the distal tibia through which #5 Ethibond was passed and then also passed into the Achilles to perform a myodesis, bringing the gastroc-soleus complex and Achilles tendon up to the remnant tibia. This nicely covered the tibial stump. The wound was again copiously irrigated and then meticulously closed in layers utilizing #1 Vicryl, 3-0 Monocryl, and lindsey on the skin. Xeroform and a sterile dressing were then applied followed by a posterior splint with the knee fully extended. The patient was then awakened from anesthesia and transferred to the recovery room in stable condition. There were no complications. All needle and sponge counts were correct at the end of the case. ATTESTATION: I attest I was present and scrubbed and performed the critical portions of the procedure myself. POSTOPERATIVE PLAN: The patient will be readmitted to the hospitalist service postoperatively. The lindsey will be left in the stump for a likely duration of 3 weeks. She'll follow up in one week for a wound check.
[2019-01-16] MEDS: HYDROmorphone TAB* 4 MG PO PRN ×2 (16:25→20:30)
[2019-01-16] MEDS: LORazepam TAB(*) 0.5 MG PO PRN (16:25)
[2019-01-16] MEDS: Morphine 4 MG/ML VIAL (1 ml) 4 MG/ML VIAL IV PRN ×2 (16:34→20:31)
[2019-01-16] MEDS: cefTRIAXone(*) 1 GM in NS 0.9% 50 ML* 50 ML IVPB SCH (18:25)
[2019-01-16 18:39] LABS: Urine Appearance Clear; Urine Bacteria Absent (Absent); Urine Bilirubin Negative (Negative); Urine Blood 1+ (Negative); Urine Color Yellow; Urine Glucose Negative (Negative); Urine Ketones Negative (Negative); Urine Nitrite Negative (Negative); Urine Protein Negative (Negative); Urine Red Blood Cell 1+(3-5/hpf) (Absent); Urine Specific Gravity 1.012 (1.010-1.030); Urine Squamous Epithelial Cell Present (Absent); Urine Urobilinogen Negative (Negative); Urine White Blood Cell Trace(0-5/hpf) (Absent)
--- NOTE | 2019-01-16 19:08 | PN ---
Progress Note - Progress Note Date of Service: 01/16/19 Note: INPATIENT PAIN-PROGRESS She had a left BKA today. She is on the surgical floor and complaining of severe 10/10 pain. She did get fentanyl in PACU. She says her pain is near stump , none really where foot was. Current Medications Acetaminophen (Tylenol Tab*) 650 mg PO Q4H PRN PRN Reason: FEVER/PAIN Last Admin: 01/15/19 15:02 Dose: 650 mg Al Hydrox/Mg Hydrox/Simethicone (Maalox Plus*) 30 ml PO Q6H PRN PRN Reason: INDIGESTION Last Admin: 01/09/19 20:08 Dose: 30 ml Albuterol (Ventolin Hfa Inhaler*) 2 puff INH Q4H PRN PRN Reason: SOB/WHEEZING Last Admin: 01/10/19 12:13 Dose: 2 puff Cetirizine HCl (Zyrtec*) 10 mg PO DAILY [facility] Last Admin: 01/16/19 10:17 Dose: Not Given Docusate Sodium (Colace Cap*) 100 mg PO BID PRN PRN Reason: CONSTIPATION Last Admin: 01/12/19 08:59 Dose: 100 mg Fluoxetine HCl (Prozac Cap*) 30 mg PO DAILY [facility] Last Admin: 01/16/19 10:26 Dose: Not Given Fluticasone Propionate (Flonase Nasal [place] 50mcg*) 2 spray BOTH NARES DAILY [facility] Last Admin: 01/16/19 10:32 Dose: Not Given Hydromorphone HCl (Dilaudid Tab*) 4 mg PO Q4H PRN PRN Reason: PAIN - SEVERE Last Admin: 01/16/19 16:25 Dose: 4 mg Metronidazole/Sodium Chloride (Flagyl 500 Mg Ivpb*) 500 mg in 100 mls @ 100 mls /hr IVPB 0830,2030 [facility] Last Admin: 01/16/19 08:02 Dose: 100 mls/hr Ceftriaxone Sodium 1 gm/ (Sodium Chloride) 50 mls @ 200 mls/hr IVPB Q24H [facility] Last Admin: 01/16/19 18:25 Dose: 200 mls/hr Lorazepam (Ativan Tab(*)) 0.5 mg PO BID PRN PRN Reason: ANXIETY Last Admin: 01/16/19 16:25 Dose: 0.5 mg Methadone HCl (Dolophine Tab*) 15 mg PO Q8H [facility] Last Admin: 01/16/19 14:44 Dose: 15 mg Montelukast Sodium (Singulair Tab*) 10 mg PO BEDTIME [facility] Last Admin: 01/16/19 00:05 Dose: 10 mg Morphine Sulfate (Morphine 4 Mg/Ml Vial (1 Ml)) 4 mg IV Q4H PRN PRN Reason: PAIN - UNRELIEVED Stop: 01/17/19 12:00 Last Admin: 01/16/19 16:34 Dose: 4 mg Nicotine Polacrilex (Nicotine Gum*) 2 mg PO Q2H PRN PRN Reason: CRAVING Last Admin: 01/13/19 12:24 Dose: 2 mg Ondansetron HCl (Zofran Inj*) 4 mg IV Q4H PRN PRN Reason: NAUSEA/VOMITING Pantoprazole Sodium (Protonix Tab*) 40 mg PO DAILY [facility] Last Admin: 01/16/19 10:32 Dose: Not Given Polyethylene Glycol/Electrolytes (Miralax*) 17 gm PO BID [facility] Last Admin: 01/16/19 10:32 Dose: Not Given Pregabalin (Lyrica Cap(*)) 75 mg PO TID [facility] Last Admin: 01/16/19 15:57 Dose: 75 mg Senna (Senokot Tab*) 1 tab PO BID PRN PRN Reason: CONSTIPATION Last Admin: 01/12/19 08:59 Dose: 1 tab Sodium Biphosphate/Sodium Phosphate (Fleet Enema*) 1 bottle [place] DAILY PRN PRN Reason: CONSTIPATION Last Admin: 01/08/19 13:58 Dose: 1 bottle Trazodone HCl (Desyrel Tab*) 300 mg PO BEDTIME [facility] Last Admin: 01/16/19 00:02 Dose: Not Given Vital Signs Temp Pulse Resp BP Pulse Ox 98.3 F 79 15 101/64 96 01/16/19 17:44 01/16/19 17:44 01/16/19 18:30 01/16/19 17:44 01/16/19 15:45 EXAM: GENERAL: In bed in mild distress EXTREMITIES: New left BKA, bandaged NEUROLOGIC: Alert, able to move 4 extremities ASSESSMENT: 1. Left BKA 2. History of Polysubstance abuse, most recently cocaine and alcohol PLAN: Will d/c Percocet and try Dilaudid, 4 mg every 4 hours as needed, continue Methadone 15 mg Q8 hrs, IV Morphine 4 mg Q 4 PRN for next 24 hours. Continue Lyrica 75 mg Q8 hr. I will re-visit tomorrow
[2019-01-16] MEDS: Nicotine GUM* 2 MG PO PRN (20:30)
[2019-01-17] MEDS: HYDROmorphone TAB* 4 MG PO PRN ×4 (03:12→17:56)
[2019-01-17] MEDS: Methadone TAB* 5 MG PO SCH ×3 (05:30→21:53)
[2019-01-17] MEDS: Morphine 4 MG/ML VIAL (1 ml) 4 MG/ML VIAL IV PRN ×2 (05:34→09:27)
[2019-01-17 05:35] LABS: ABS Basophils 0.1 10^3/ul (0-0.2); ABS Lymphocytes 1.3 10^3/ul (1.0-4.8); ABS Monocytes 1.2 10^3/ul (0-0.8); ABS Neutrophils 8.1 10^3/ul (1.5-7.7); Eosinophil % 0.3 %; Hematocrit 35 % (35-47); Hemoglobin 11.8 g/dL (12.0-16.0); Lymphocyte % 12.5 %; Mean Corpuscular HGB Conc 34 g/dL (31-36); Mean Corpuscular Hemoglobin 27 pg (27-31); Mean Corpuscular Volume 78 fL (80-97); Platelet Count 282 10^3/uL (150-450); Red Blood Count 4.44 10^6 /uL (3.70-4.87); Red Cell Distribution Width 15 % (10.5-15); White Blood Count 10.7 10^3/uL (3.5-10.8)
[2019-01-17 05:54] LABS: BUN/Creatinine Ratio 15.3 (8-20); Calcium 9.4 mg/dL (8.6-10.3); EGFR African American 132.8 (>60); EGFR Non-African American 109.7 (>60); Potassium 3.4 mmol/L (3.5-5.0)
--- NOTE | 2019-01-17 08:38 | PN ---
Progress Note - Progress Note Date of Service: 01/17/19 SOAP: Subjective: [] Ms. Trujillo was seen at bedside this morning. She describes burning pain in her distal stump. Denies fever, chills, CP, SOB, dizziness, nausea. Objective: []General: Tearful, alert and oriented x 3 LLE: Splint CDI, well padded edges. No erythema proximal to the splint. Areas accessible through soft dressing nontender. RLE calf supple, nontender, no erythema or edema. Assessment: [] Left foot infection with osteomyelitis, plantar ulcer, 5th metatarsal fracture, and insensate foot. Now POD 1 sp Left below the knee amputation 01/16/19 Plan: [] NWB LLE PT/OT Pain management per Dr Mariano. Current plan: Dilaudid 4 mg every 4 hours as needed, continue Methadone 15 mg Q8 hrs, IV Morphine 4 mg Q 4 PRN for 24 hours post op. Continue Lyrica 75 mg Q8 hr. SQ Heparin 5000 u Q 8 hr for DVT prophylaxis Discussed the importance of continued sobriety. Patient reports she has a sponsor and attends meetings regularly with intent to remain sober. Vital Signs Temp 98.4 F 01/17/19 07:33 Pulse 79 01/17/19 07:33 Resp 18 01/17/19 07:38 BP 103/54 01/17/19 07:33 Pulse Ox 96 01/17/19 07:33 Intake & Output 01/16/19 01/17/19 01/17/19 18:59 06:59 18:59 Intake Total 1140 Output Total 1200 1450 Balance -1200 -310 Intake: IV Fluids 160 ABX - FLAGYL 105 ceftriaxone 55 Oral 980 Output: Augustin 1200 1450 Other: # Bowel Movements 0 Estimated Stool Amount Small Laboratory Last Values WBC 10.7 10^3/uL (3.5-10.8) 01/17/19 05:22 RBC 4.44 10^6 /uL (3.70-4.87) 01/17/19 05:22 Hgb 11.8 g/dL (12.0-16.0) L 01/17/19 05:22 Hct 35 % (35-47) 01/17/19 05:22 MCV 78 fL (80-97) L 01/17/19 05:22 MCH 27 pg (27-31) 01/17/19 05:22 MCHC 34 g/dL (31-36) 01/17/19 05:22 RDW 15 % (10.5-15) 01/17/19 05:22 Plt Count 282 10^3/uL (150-450) 01/17/19 05:22 MPV 8.0 fL (7.4-10.4) 01/17/19 05:22 Neut % (Auto) 75.5 % 01/17/19 05:22 Lymph % (Auto) 12.5 % 01/17/19 05:22 Clark % (Auto) 10.8 % 01/17/19 05:22 Eos % (Auto) 0.3 % 01/17/19 05:22 Baso % (Auto) 0.9 % 01/17/19 05:22 Absolute Neuts (auto) 8.1 10^3/ul (1.5-7.7) H 01/17/19 05:22 Absolute Lymphs (auto) 1.3 10^3/ul (1.0-4.8) 01/17/19 05:22 Absolute Monos (auto) 1.2 10^3/ul (0-0.8) H 01/17/19 05:22 Absolute Eos (auto) 0.0 10^3/ul (0-0.6) 01/17/19 05:22 Absolute Basos (auto) 0.1 10^3/ul (0-0.2) 01/17/19 05:22 Absolute Nucleated RBC 0.0 10^3/ul 01/17/19 05:22 Nucleated RBC % 0.0 01/17/19 05:22 ESR > 120 mm/Hr (0-19) H 01/03/19 21:09 Sodium 136 mmol/L (135-145) 01/17/19 05:22 Potassium 3.4 mmol/L (3.5-5.0) L 01/17/19 05:22 Chloride 102 mmol/L (101-111) 01/17/19 05:22 Carbon Dioxide 26 mmol/L (22-32) 01/17/19 05:22 Anion Gap 8 mmol/L (2-11) 01/17/19 05:22 BUN 9 mg/dL (6-24) 01/17/19 05:22 Creatinine 0.59 mg/dL (0.51-0.95) 01/17/19 05:22 Est GFR ( Amer) 132.8 (>60) 01/17/19 05:22 Est GFR (Non-Af Amer) 109.7 (>60) 01/17/19 05:22 BUN/Creatinine Ratio 15.3 (8-20) 01/17/19 05:22 Glucose 106 mg/dL (70-100) H 01/17/19 05:22 POC Glucose (mg/dL) 93 mg/dL (70-100) 01/14/19 07:52 Lactic Acid 1.4 mmol/L (0.5-2.0) 01/08/19 06:03 Calcium 9.4 mg/dL (8.6-10.3) 01/17/19 05:22 Magnesium 2.0 mg/dL (1.9-2.7) 01/07/19 07:06 Total Bilirubin 0.20 mg/dL (0.2-1.0) 01/15/19 05:18 AST 19 U/L (13-39) 01/15/19 05:18 ALT 8 U/L (7-52) 01/15/19 05:18 Alkaline Phosphatase 111 U/L (34-104) H 01/15/19 05:18 C-Reactive Protein 1.58 mg/L (<8.01) 01/15/19 05:18 Total Protein 6.1 g/dL (6.4-8.9) L 01/15/19 05:18 Albumin 3.3 g/dL (3.2-5.2) 01/15/19 05:18 Globulin 2.8 g/dL (2-4) 01/15/19 05:18 Albumin/Globulin Ratio 1.2 (1-3) 01/15/19 05:18 TSH 0.79 mcIU/mL (0.34-5.60) 01/03/19 21:09 Beta HCG, Quant 1.24 mIU/mL 01/03/19 21:09 Urine Color Yellow 01/16/19 18:09 Urine Appearance Clear 01/16/19 18:09 Urine pH 6.0 (5-9) 01/16/19 18:09 Ur Specific [place] 1.012 (1.010-1.030) 01/16/19 18:09 Urine Protein Negative (Negative) 01/16/19 18:09 Urine Ketones Negative (Negative) 01/16/19 18:09 Urine Blood 1+ (Negative) A 01/16/19 18:09 Urine Nitrate Negative (Negative) 01/16/19 18:09 Urine Bilirubin Negative (Negative) 01/16/19 18:09 Urine Urobilinogen Negative (Negative) 01/16/19 18:09 Ur Leukocyte Esterase Negative (Negative) 01/16/19 18:09 Urine WBC (Auto) Trace(0-5/hpf) (Absent) 01/16/19 18:09 Urine RBC (Auto) 1+(3-5/hpf) (Absent) A 01/16/19 18:09 Ur Squamous Epith Cells Present (Absent) A 01/16/19 18:09 Urine Bacteria Absent (Absent) 01/16/19 18:09 Urine Glucose Negative (Negative) 01/16/19 18:09 Salicylates < 2.50 mg/dL (<30) 01/03/19 21:09 Urine Opiates Screen None detected (None Detect) 01/04/19 01:45 Acetaminophen < 15 mcg/mL 01/03/19 21:09 Ur Barbiturates Screen None detected (None Detect) 01/04/19 01:45 Ur Phencyclidine Scrn None detected (None Detect) 01/04/19 01:45 Ur Amphetamines Screen Presumptive positive (None Detect) A 01/04/19 01:45 U Benzodiazepines Scrn None detected (None Detect) 01/04/19 01:45 Urine Cocaine Screen Presumptive positive (None Detect) A 01/04/19 01:45 U Cannabinoids Screen Presumptive positive (None Detect) A 01/04/19 01:45 Serum Alcohol < 10 mg/dL (<10) 01/03/19 21:09
[2019-01-17] MEDS ORDERED: Potassium Chlor TAB* 10 MEQ TAB.ER PO ONE (09:05)
[2019-01-17] MEDS: metroNIDAZOLE IV 500 MG/100ML* 500 MG/100 ML BAG IVPB SCH ×2 (09:23→20:04)
[2019-01-17] MEDS: Fluticasone NASAL SPRAY 50MCG* 16 gm SPRAY BTL BOTH NARES SCH (09:29)
[2019-01-17] MEDS: FLUoxetine CAP* 10 MG PO SCH (09:29)
[2019-01-17] MEDS: Pantoprazole TAB * 40 MG TAB PO SCH (09:30)
[2019-01-17] MEDS: Pregabalin CAP(*) 25 MG PO SCH ×3 (09:30→20:49)
[2019-01-17] MEDS: Cetirizine* 10 MG TAB PO SCH (09:30)
[2019-01-17] MEDS: Polyethylene Glycol 3350* 17 GM PACKET PO SCH ×2 (09:31→22:42)
--- NOTE | 2019-01-17 11:02 | PN ---
Progress Note - Progress Note Date of Service: 01/17/19 SOAP: Subjective: CC: Left foot infection HPI: Ms. Trujillo is a 48 yo female with PMH significant for polysubstance abuse, and history of a left lower extremity compartment syndrome in 09/2018 with complicated postoperative course who presented to the hospital with complaints of SI and left foot wound. Denies fever, chills, shortness of breath, chest discomfort, N/V/D. She reports left LE pain, that she describes as a burning. Objective: Vital Signs - 8 hr 01/17/19 01/17/19 01/17/19 03:12 03:23 05:30 Temperature 98.8 F Pulse Rate 80 Respiratory 18 17 18 Rate Blood Pressure 113/63 (mmHg) O2 Sat by Pulse 96 Oximetry 01/17/19 01/17/19 01/17/19 07:33 07:34 07:38 Temperature 98.4 F Pulse Rate 79 Respiratory 17 18 18 Rate Blood Pressure 103/54 (mmHg) O2 Sat by Pulse 96 Oximetry Physical Exam: General: NAD, laying in bed Neurological: Drowsy and Oriented x4 HEENT: No thrush, moist MM Cardiovascular: Heart rate regular Respiratory: Lung sounds clear Abdominal: Bowel sounds present; ABD soft, non tender and non distended Skin: No rash, surgical dressing to the left leg clean and intact Laboratory Results - last 24 hr 01/16/19 01/17/19 01/17/19 18:09 05:22 05:22 WBC 10.7 RBC 4.44 Hgb 11.8 L Hct 35 MCV 78 L MCH 27 MCHC 34 RDW 15 Plt Count 282 MPV 8.0 Neut % (Auto) 75.5 Lymph % (Auto) 12.5 [place] % (Auto) 10.8 Eos % (Auto) 0.3 Baso % (Auto) 0.9 Absolute Neuts (auto) 8.1 H Absolute Lymphs (auto) 1.3 Absolute Monos (auto) 1.2 H Absolute Eos (auto) 0.0 Absolute Basos (auto) 0.1 Absolute Nucleated RBC 0.0 Nucleated RBC % 0.0 Sodium 136 Potassium 3.4 L Chloride 102 Carbon Dioxide 26 Anion Gap 8 BUN 9 Creatinine 0.59 Est GFR ( Amer) 132.8 Est GFR (Non-Af Amer) 109.7 BUN/Creatinine Ratio 15.3 Glucose 106 H Calcium 9.4 Urine Color Yellow Urine Appearance Clear Urine pH 6.0 Ur Specific [place] 1.012 Urine Protein Negative Urine Ketones Negative Urine Blood 1+ A Urine Nitrate Negative Urine Bilirubin Negative Urine Urobilinogen Negative Ur Leukocyte Esterase Negative Urine WBC (Auto) Trace(0-5/hpf) Urine RBC (Auto) 1+(3-5/hpf) A Ur Squamous Epith Cells Present A Urine Bacteria Absent Urine Glucose Negative Microbiology 01/04/19 16:45 Fungal Culture - Preliminary Misc Source (See Comment) No Growth Week 1 01/04/19 16:45 Anaerobic Culture - Final Wound Prevotella Melaninogenica Acid Fast Bacilli Smear - Final 01/03/19 21:08 Aerobic Blood Culture - Final Blood Venous No Growth Day 5 Anaerobic Blood Culture - Final No Growth Day 5 01/03/19 21:08 Aerobic Blood Culture - Final Blood Venous No Growth Day 5 Anaerobic Blood Culture - Final No Growth Day 5 01/04/19 00:37 Gram Stain - Final Foot Left Wound Culture - Final Alcaligenes Species Providencia Rettgeri Peptoniphilus Asaccharolyticus Normal Rody 01/04/19 16:45 Gram Stain - Final Foot Left Wound Culture - Final Haemophilus Parainfluenzae Normal Rody 01/04/19 01:24 Skin and Soft Tissue MRSA/MSSA (PCR - Final Foot Left Mrsa Negative S.aureus Positive Assessment: 1. Left foot infection with osteomyelitis. Multiple organisms growing in her wound cultures including Haemophilus parainfluenzae, Staphylococcus aureus, alcaligenes species, Providencia rettgeri, Peptoniphilus asaccharolyticus, MRSA negative. Anaerobic cultures with Prevotella Melaninogenica. Fungal culture with no growth to date. Blood cultures with no growth to date. S/P left foot wound I+D and placement of wound vac on 01/04/[address] Appiah. S/P left foot wound debridement and wound vac dressing change on 01/07/[address] Wen. S/P left BKA, POD #[address] Appiah. Afebrile and no leukocytosis. CRP no longer elevated. 2. Chronic pain. Plan: Continue ceftriaxone 1 g IV daily, day AND Flagyl 500 mg twice daily, day 14/14. Weekly labs while on IV ABX: CBC, CMP, and CRP. Will continue ceftriaxone for a few days post op and then discontinue.
[2019-01-17 11:24] LABS: INR 1.27 (0.82-1.09)
[2019-01-17] MEDS: LORazepam TAB(*) 0.5 MG PO PRN (11:47)
--- NOTE | 2019-01-17 13:26 | PN ---
Subjective Date of Service: 01/17/19 Interval History: Pt c/o pain in post op left stump Objective Active Medications: Acetaminophen (Tylenol Tab*) 650 mg PO Q4H PRN PRN Reason: FEVER/PAIN Last Admin: 01/15/19 15:02 Dose: 650 mg Al Hydrox/Mg Hydrox/Simethicone (Maalox Plus*) 30 ml PO Q6H PRN PRN Reason: INDIGESTION Last Admin: 01/09/19 20:08 Dose: 30 ml Albuterol (Ventolin Hfa Inhaler*) 2 puff INH Q4H PRN PRN Reason: SOB/WHEEZING Last Admin: 01/10/19 12:13 Dose: 2 puff Cetirizine HCl (Zyrtec*) 10 mg PO DAILY [facility] Last Admin: 01/17/19 09:30 Dose: 10 mg Docusate Sodium (Colace Cap*) 100 mg PO BID PRN PRN Reason: CONSTIPATION Last Admin: 01/12/19 08:59 Dose: 100 mg Fluoxetine HCl (Prozac Cap*) 30 mg PO DAILY [facility] Last Admin: 01/17/19 09:29 Dose: 30 mg Fluticasone Propionate (Flonase Nasal [place] 50mcg*) 2 spray BOTH NARES DAILY [facility] Last Admin: 01/17/19 09:29 Dose: 2 spray Heparin Sodium (Porcine) (Heparin Vial(*)) 5,000 units SUBCUT Q8HR [facility] Hydromorphone HCl (Dilaudid Tab*) 4 mg PO Q4H PRN PRN Reason: PAIN - SEVERE Last Admin: 01/17/19 11:44 Dose: 4 mg Metronidazole/Sodium Chloride (Flagyl 500 Mg Ivpb*) 500 mg in 100 mls @ 100 mls /hr IVPB 0830,2030 [facility] Last Admin: 01/17/19 09:23 Dose: 100 mls/hr Ceftriaxone Sodium 1 gm/ (Sodium Chloride) 50 mls @ 200 mls/hr IVPB Q24H [facility] Last Admin: 01/16/19 18:25 Dose: 200 mls/hr Lorazepam (Ativan Tab(*)) 0.5 mg PO BID PRN PRN Reason: ANXIETY Last Admin: 01/17/19 11:47 Dose: 0.5 mg Methadone HCl (Dolophine Tab*) 15 mg PO Q8H [facility] Last Admin: 01/17/19 05:30 Dose: 15 mg Montelukast Sodium (Singulair Tab*) 10 mg PO BEDTIME [facility] Last Admin: 01/16/19 20:30 Dose: 10 mg Nicotine Polacrilex (Nicotine Gum*) 2 mg PO Q2H PRN PRN Reason: CRAVING Last Admin: 01/16/19 20:30 Dose: 2 mg Ondansetron HCl (Zofran Inj*) 4 mg IV Q4H PRN PRN Reason: NAUSEA/VOMITING Pantoprazole Sodium (Protonix Tab*) 40 mg PO DAILY [facility] Last Admin: 01/17/19 09:30 Dose: 40 mg Polyethylene Glycol/Electrolytes (Miralax*) 17 gm PO BID [facility] Last Admin: 01/17/19 09:31 Dose: 17 gm Pregabalin (Lyrica Cap(*)) 75 mg PO TID [facility] Last Admin: 01/17/19 09:30 Dose: 75 mg Senna (Senokot Tab*) 1 tab PO BID PRN PRN Reason: CONSTIPATION Last Admin: 01/12/19 08:59 Dose: 1 tab Sodium Biphosphate/Sodium Phosphate (Fleet Enema*) 1 bottle [place] DAILY PRN PRN Reason: CONSTIPATION Last Admin: 01/08/19 13:58 Dose: 1 bottle Trazodone HCl (Desyrel Tab*) 300 mg PO BEDTIME [facility] Last Admin: 01/16/19 22:50 Dose: 300 mg Vital Signs - 8 hr 01/17/19 01/17/19 01/17/19 05:30 05:34 05:47 Temperature Pulse Rate Respiratory 18 18 16 Rate Blood Pressure (mmHg) O2 Sat by Pulse Oximetry 01/17/19 01/17/19 01/17/19 06:30 07:33 07:34 Temperature 98.4 F Pulse Rate 79 Respiratory 18 17 18 Rate Blood Pressure 103/54 (mmHg) O2 Sat by Pulse 96 Oximetry 01/17/19 01/17/19 01/17/19 07:38 08:00 09:27 Temperature Pulse Rate Respiratory 18 20 20 Rate Blood Pressure (mmHg) O2 Sat by Pulse 96 Oximetry 01/17/19 01/17/19 01/17/19 09:30 09:32 11:03 Temperature Pulse Rate Respiratory 20 20 20 Rate Blood Pressure (mmHg) O2 Sat by Pulse Oximetry 01/17/19 01/17/19 01/17/19 11:27 11:44 11:47 Temperature 98.1 F Pulse Rate 75 Respiratory 17 20 18 Rate Blood Pressure 98/64 (mmHg) O2 Sat by Pulse 96 Oximetry 01/17/19 12:10 Temperature Pulse Rate Respiratory 18 Rate Blood Pressure (mmHg) O2 Sat by Pulse Oximetry Oxygen Devices in Use Now: None Appearance: 48 yo F in nAD, AAOx3 Eyes: No Scleral Icterus, PERRLA Ears/Nose/Mouth/Throat: NL Teeth, Lips, Gums, Mucous Membranes Moist Neck: NL Appearance and Movements; NL JVP, Trachea Midline Respiratory: Symmetrical Chest Expansion and Respiratory Effort, Clear to Auscultation Cardiovascular: NL Sounds; No Murmurs; No JVD Abdominal: NL Sounds; No Tenderness; No Distention Lymphatic: No Cervical Adenopathy Extremities: No Clubbing, Cyanosis, - - s/p left BKA-post op dressings not removed Skin: No Nodules or Sclerosis Neurological: Alert and Oriented x 3, NL Muscle Strength and Tone Result Diagrams: 01/17/19 05:22 01/17/19 05:22 Additional Lab and Data: Lab Results 01/03/19 01/03/19 01/03/19 Range/Units 21:09 21:09 21:09 WBC 11.0 H (3.5-10.8) 10^3/uL RBC 4.51 (3.70-4.87) 10^6 /uL Hgb 12.1 (12.0-16.0) g/dL Hct 36 (33-41) % MCV 80 (80-97) fL MCH 27 (27-31) pg MCHC 34 (31-36) g/dL RDW 14 (10.5-15) % Plt Count 533 H (150-450) 10^3/uL MPV 7.9 (7.4-10.4) fL Neut % (Auto) 64.7 % Lymph % (Auto) 21.3 % [place] % (Auto) 12.7 % Eos % (Auto) 0.5 % Baso % (Auto) 0.8 % Absolute Neuts (auto) 7.1 (1.5-7.7) 10^3/ul Absolute Lymphs (auto) 2.3 (1.0-4.8) 10^3/ul Absolute Monos (auto) 1.4 H (0-0.8) 10^3/ul Absolute Eos (auto) 0.1 (0-0.6) 10^3/ul Absolute Basos (auto) 0.1 (0-0.2) 10^3/ul Absolute Nucleated RBC 0 10^3/ul Nucleated RBC % 0 ESR Pending Sodium 136 (135-145) mmol/L Potassium 3.0 L (3.5-5.0) mmol/L Chloride 96 L (101-111) mmol/L Carbon Dioxide 28 (22-32) mmol/L Anion Gap 12 H (2-11) mmol/L BUN 8 (6-24) mg/dL Creatinine 0.78 (0.51-0.95) mg/dL Est GFR ( Amer) 96.2 (>60) Est GFR (Non-Af Amer) 79.5 (>60) BUN/Creatinine Ratio 10.3 (8-20) Glucose 78 (70-100) mg/dL Lactic Acid 0.9 (0.5-2.0) mmol/L Calcium 9.5 (8.6-10.3) mg/dL Total Bilirubin 0.30 (0.2-1.0) mg/dL AST 22 (13-39) U/L ALT 15 (7-52) U/L Alkaline Phosphatase 256 H (34-104) U/L C-Reactive Protein Pending Total Protein 7.5 (6.4-8.9) g/dL Albumin 3.9 (3.2-5.2) g/dL Globulin 3.6 (2-4) g/dL Albumin/Globulin Ratio 1.1 (1-3) TSH 0.79 (0.34-5.60) mcIU/mL Beta HCG, Quant 1.24 mIU/mL Salicylates < 2.50 (<30) mg/dL Acetaminophen < 15 mcg/mL Serum Alcohol < 10 (<10) mg/dL Microbiology and Other Data: Microbiology 01/04/19 00:37 Gram Stain - Final Foot Left 01/04/19 01:24 Skin and Soft Tissue MRSA/MSSA (PCR - Final Foot Left Mrsa Negative S.aureus Positive Assess/Plan/Problems-Billing Assessment: 47 yo F with H polysubstance abuse, hepatitis C , anxiety/ depression, with recent history of left leg compartment syndrome after syncope and collapse on 09/18, rhabdo, s/p 4 fasciotomies, and multiple I&Ds now living alone presented back to the ED on 01/04 with SI and was noted to have L foot wound - Patient Problems (1) Osteomyelitis Comment: acute s/p debridement in OR on 01/04/19, 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 cont ceftriaxone/flagyl. Wound cx positive for Providencia, Haemophilus, Prevotella, Peptoniphilus ID following; will await final recommendations re: intermediate abx plans (2) Anxiety and depression Comment: With SI that so far resolved Appreciate psychiatry consult-cont Prozac, Trazadone 1:1 obs d/c'd on 01/06/19 (3) Chronic, continuous use of opioids Comment: Dr. Cabrera adjusted pain meds, will ask for advice re: acute post op pain management (4) Polysubstance (including opioids) dependence w/o physiol dependence Comment: UDS positive for cocaine, amphetamines, cannabis at admission (5) Hypotension Comment: pt asymptomatic, non toxic appearing, Has had chronically low BP (6) Peripheral arterial disease Comment: aterior tibial and dorsalis pedis with very poor flow but not able to be stented s/p L BKA 01/16/19 (7) DVT prophylaxis Comment: SCD's Status and Disposition: inpatient
[2019-01-17] MEDS ORDERED: Morphine 4 MG/ML VIAL (1 ml) 4 MG/ML VIAL IV ONE (13:28)
[2019-01-17] MEDS ORDERED: Morphine INJ* 10 MG/ML 1 ML CARPUJECT IV ONE (13:28)
[2019-01-17] MEDS: Heparin VIAL(*) 5000 UNITS/ML VIAL (FIVE THOUSAND) SUBCUT SCH ×2 (13:51→21:54)
[2019-01-17] MEDS: cefTRIAXone(*) 1 GM in NS 0.9% 50 ML* 50 ML IVPB SCH (18:43)
--- NOTE | 2019-01-17 19:13 | PN ---
Progress Note - Progress Note Date of Service: 01/17/19 Note: INPATIENT PAIN-PROGRESS I met with Yuki again today. She was encouraged to push past her pain and participate in therapy. I also explained that we were going to try to limit IV pain meds to 24 hours post-op. I spoke with Dr. Ruvalcaba about her as well and Dr. Ruvalcaba agreed with treatment plan. I will add a Dilaudid 6 mg dose for extreme pain. Current Medications Acetaminophen (Tylenol Tab*) 650 mg PO Q4H PRN PRN Reason: FEVER/PAIN Last Admin: 01/15/19 15:02 Dose: 650 mg Al Hydrox/Mg Hydrox/Simethicone (Maalox Plus*) 30 ml PO Q6H PRN PRN Reason: INDIGESTION Last Admin: 01/09/19 20:08 Dose: 30 ml Albuterol (Ventolin Hfa Inhaler*) 2 puff INH Q4H PRN PRN Reason: SOB/WHEEZING Last Admin: 01/10/19 12:13 Dose: 2 puff Cetirizine HCl (Zyrtec*) 10 mg PO DAILY [facility] Last Admin: 01/17/19 09:30 Dose: 10 mg Docusate Sodium (Colace Cap*) 100 mg PO BID PRN PRN Reason: CONSTIPATION Last Admin: 01/12/19 08:59 Dose: 100 mg Fluoxetine HCl (Prozac Cap*) 30 mg PO DAILY [facility] Last Admin: 01/17/19 09:29 Dose: 30 mg Fluticasone Propionate (Flonase Nasal [place] 50mcg*) 2 spray BOTH NARES DAILY [facility] Last Admin: 01/17/19 09:29 Dose: 2 spray Heparin Sodium (Porcine) (Heparin Vial(*)) 5,000 units SUBCUT Q8HR [facility] Last Admin: 01/17/19 13:51 Dose: 5,000 units Hydromorphone HCl (Dilaudid Tab*) 4 mg PO Q4H PRN PRN Reason: PAIN - SEVERE Last Admin: 01/17/19 17:56 Dose: 4 mg Metronidazole/Sodium Chloride (Flagyl 500 Mg Ivpb*) 500 mg in 100 mls @ 100 mls /hr IVPB 0830,2030 [facility] Last Admin: 01/17/19 09:23 Dose: 100 mls/hr Ceftriaxone Sodium 1 gm/ (Sodium Chloride) 50 mls @ 200 mls/hr IVPB Q24H [facility] Last Admin: 01/17/19 18:43 Dose: 200 mls/hr Lorazepam (Ativan Tab(*)) 0.5 mg PO BID PRN PRN Reason: ANXIETY Last Admin: 01/17/19 11:47 Dose: 0.5 mg Methadone HCl (Dolophine Tab*) 15 mg PO Q8H [facility] Last Admin: 01/17/19 13:50 Dose: 15 mg Montelukast Sodium (Singulair Tab*) 10 mg PO BEDTIME [facility] Last Admin: 01/16/19 20:30 Dose: 10 mg Nicotine Polacrilex (Nicotine Gum*) 2 mg PO Q2H PRN PRN Reason: CRAVING Last Admin: 01/16/19 20:30 Dose: 2 mg Ondansetron HCl (Zofran Inj*) 4 mg IV Q4H PRN PRN Reason: NAUSEA/VOMITING Pantoprazole Sodium (Protonix Tab*) 40 mg PO DAILY [facility] Last Admin: 01/17/19 09:30 Dose: 40 mg Polyethylene Glycol/Electrolytes (Miralax*) 17 gm PO BID [facility] Last Admin: 01/17/19 09:31 Dose: 17 gm Pregabalin (Lyrica Cap(*)) 75 mg PO TID [facility] Last Admin: 01/17/19 13:50 Dose: 75 mg Senna (Senokot Tab*) 1 tab PO BID PRN PRN Reason: CONSTIPATION Last Admin: 01/12/19 08:59 Dose: 1 tab Sodium Biphosphate/Sodium Phosphate (Fleet Enema*) 1 bottle [place] DAILY PRN PRN Reason: CONSTIPATION Last Admin: 01/08/19 13:58 Dose: 1 bottle Trazodone HCl (Desyrel Tab*) 300 mg PO BEDTIME [facility] Last Admin: 01/16/19 22:50 Dose: 300 mg Vital Signs Temp Pulse Resp BP Pulse Ox 99.3 F 71 18 91/56 96 01/17/19 15:32 01/17/19 15:32 01/17/19 17:56 01/17/19 15:32 01/17/19 15:51 EXAM: LUNGS: Clear HEART: Regular ABDOMEN: Soft EXTREMITIES: Left BKA site bandaged ASSESSMENT: 1. Left BKA 2. History of Polysubstance abuse, most recently alcohol and cocaine PLAN: I will increase her dilaudid to 4 mg Q4 PRN or 6 mg Q4 PRN. D/C IV Morphine. Continue Methadone 15 TID and Lyrica 75 mg TID. Add Robaxin as a muscle relaxant. Antibiotics per ortho and hospitalist teams.
[2019-01-17] MEDS: traZODone TAB* 100 MG PO SCH (20:02)
[2019-01-17] MEDS: Montelukast Sodium TAB* 10 MG PO SCH (20:02)
[2019-01-17] MEDS: HYDROmorphone TAB* 2 MG PO PRN (22:13)
[2019-01-17] MEDS: Acetaminophen TAB* 325 MG PO PRN (22:50)
[2019-01-18] MEDS: HYDROmorphone TAB* 2 MG PO PRN ×4 (02:21→18:45)
[2019-01-18] MEDS: Methadone TAB* 5 MG PO SCH ×3 (06:18→21:55)
[2019-01-18] MEDS: Heparin VIAL(*) 5000 UNITS/ML VIAL (FIVE THOUSAND) SUBCUT SCH ×3 (06:19→21:57)
[2019-01-18] MEDS ORDERED: Potassium Chlor TAB* 20 MEQ TAB.ER PO ONE (07:37)
--- NOTE | 2019-01-18 08:18 | PN ---
Progress Note - Progress Note Date of Service: 01/18/19 SOAP: Subjective: [] Pt seen at bedside, she is in good spirits today. Pain control is much improved. Denies fever, chills, dizziness, CP, SOB. Objective: []General: NAD LLE: Splint CDI. No erythema proximal to the splint. RLE calf supple, nontender, no erythema or edema. Assessment: [] Left foot infection with osteomyelitis, plantar ulcer, 5th metatarsal fracture, and insensate foot. Now sp Left below the knee amputation 01/16/19 Plan: [] NWB LLE PT/OT Pain management per Dr Mariano. Pain is well controlled SQ Heparin 5000u Q 8 hr for DVT prophylaxis Needs rehab placement, CM aware Vital Signs Temp 98.5 F 01/18/19 12:12 Pulse 76 01/18/19 12:12 Resp 18 01/18/19 14:38 BP 96/62 01/18/19 12:30 Pulse Ox 97 01/18/19 12:12 Intake & Output 01/17/19 01/18/19 01/18/19 18:59 06:59 18:59 Intake Total 105 1250 538 Output Total 1000 750 300 Balance -895 500 238 Intake: IV Fluids 105 138 ABX - FLAGYL 105 108 NS (0.9%) 30 Oral 1250 400 Output: Urine 300 200 [place] 1000 450 100 Other: # Bowel Movements 1 1 Estimated Stool Amount Large Large Laboratory Last Values WBC 10.7 10^3/uL (3.5-10.8) 01/17/19 05:22 RBC 4.44 10^6 /uL (3.70-4.87) 01/17/19 05:22 Hgb 11.8 g/dL (12.0-16.0) L 01/17/19 05:22 Hct 35 % (35-47) 01/17/19 05:22 MCV 78 fL (80-97) L 01/17/19 05:22 MCH 27 pg (27-31) 01/17/19 05:22 MCHC 34 g/dL (31-36) 01/17/19 05:22 RDW 15 % (10.5-15) 01/17/19 05:22 Plt Count 282 10^3/uL (150-450) 01/17/19 05:22 MPV 8.0 fL (7.4-10.4) 01/17/19 05:22 Neut % (Auto) 75.5 % 01/17/19 05:22 Lymph % (Auto) 12.5 % 01/17/19 05:22 [place] % (Auto) 10.8 % 01/17/19 05:22 Eos % (Auto) 0.3 % 01/17/19 05:22 Baso % (Auto) 0.9 % 01/17/19 05:22 Absolute Neuts (auto) 8.1 10^3/ul (1.5-7.7) H 01/17/19 05:22 Absolute Lymphs (auto) 1.3 10^3/ul (1.0-4.8) 01/17/19 05:22 Absolute Monos (auto) 1.2 10^3/ul (0-0.8) H 01/17/19 05:22 Absolute Eos (auto) 0.0 10^3/ul (0-0.6) 01/17/19 05:22 Absolute Basos (auto) 0.1 10^3/ul (0-0.2) 01/17/19 05:22 Absolute Nucleated RBC 0.0 10^3/ul 01/17/19 05:22 Nucleated RBC % 0.0 01/17/19 05:22 ESR > 120 mm/Hr (0-19) H 01/03/19 21:09 INR (Anticoag Therapy) 1.27 (0.82-1.09) H 01/17/19 11:05 APTT 29.0 seconds (26.0-36.3) 01/17/19 11:05 Sodium 138 mmol/L (135-145) 01/18/19 09:53 Potassium 4.0 mmol/L (3.5-5.0) 01/18/19 09:53 Chloride 104 mmol/L (101-111) 01/18/19 09:53 Carbon Dioxide 29 mmol/L (22-32) 01/18/19 09:53 Anion Gap 5 mmol/L (2-11) 01/18/19 09:53 BUN 12 mg/dL (6-24) 01/18/19 09:53 Creatinine 0.75 mg/dL (0.51-0.95) 01/18/19 09:53 Est GFR ( Amer) 100.7 (>60) 01/18/19 09:53 Est GFR (Non-Af Amer) 83.2 (>60) 01/18/19 09:53 BUN/Creatinine Ratio 16.0 (8-20) 01/18/19 09:53 Glucose 120 mg/dL (70-100) H 01/18/19 09:53 POC Glucose (mg/dL) 93 mg/dL (70-100) 01/14/19 07:52 Lactic Acid 1.4 mmol/L (0.5-2.0) 01/08/19 06:03 Calcium 9.4 mg/dL (8.6-10.3) 01/18/19 09:53 Magnesium 2.0 mg/dL (1.9-2.7) 01/07/19 07:06 Total Bilirubin 0.20 mg/dL (0.2-1.0) 01/15/19 05:18 AST 19 U/L (13-39) 01/15/19 05:18 ALT 8 U/L (7-52) 01/15/19 05:18 Alkaline Phosphatase 111 U/L (34-104) H 01/15/19 05:18 C-Reactive Protein 1.58 mg/L (<8.01) 01/15/19 05:18 Total Protein 6.1 g/dL (6.4-8.9) L 01/15/19 05:18 Albumin 3.3 g/dL (3.2-5.2) 01/15/19 05:18 Globulin 2.8 g/dL (2-4) 01/15/19 05:18 Albumin/Globulin Ratio 1.2 (1-3) 01/15/19 05:18 TSH 0.79 mcIU/mL (0.34-5.60) 01/03/19 21:09 Beta HCG, Quant 1.24 mIU/mL 01/03/19 21:09 Urine Color Yellow 01/16/19 18:09 Urine Appearance Clear 01/16/19 18:09 Urine pH 6.0 (5-9) 01/16/19 18:09 Ur Specific Sophia 1.012 (1.010-1.030) 01/16/19 18:09 Urine Protein Negative (Negative) 01/16/19 18:09 Urine Ketones Negative (Negative) 01/16/19 18:09 Urine Blood 1+ (Negative) A 01/16/19 18:09 Urine Nitrate Negative (Negative) 01/16/19 18:09 Urine Bilirubin Negative (Negative) 01/16/19 18:09 Urine Urobilinogen Negative (Negative) 01/16/19 18:09 Ur Leukocyte Esterase Negative (Negative) 01/16/19 18:09 Urine WBC (Auto) Trace(0-5/hpf) (Absent) 01/16/19 18:09 Urine RBC (Auto) 1+(3-5/hpf) (Absent) A 01/16/19 18:09 Ur Squamous Epith Cells Present (Absent) A 01/16/19 18:09 Urine Bacteria Absent (Absent) 01/16/19 18:09 Urine Glucose Negative (Negative) 01/16/19 18:09 Salicylates < 2.50 mg/dL (<30) 01/03/19 21:09 Urine Opiates Screen None detected (None Detect) 01/04/19 01:45 Acetaminophen < 15 mcg/mL 01/03/19 21:09 Ur Barbiturates Screen None detected (None Detect) 01/04/19 01:45 Ur Phencyclidine Scrn None detected (None Detect) 01/04/19 01:45 Ur Amphetamines Screen Presumptive positive (None Detect) A 01/04/19 01:45 U Benzodiazepines Scrn None detected (None Detect) 01/04/19 01:45 Urine Cocaine Screen Presumptive positive (None Detect) A 01/04/19 01:45 U Cannabinoids Screen Presumptive positive (None Detect) A 01/04/19 01:45 Serum Alcohol < 10 mg/dL (<10) 01/03/19 21:09
[2019-01-18] MEDS: metroNIDAZOLE IV 500 MG/100ML* 500 MG/100 ML BAG IVPB SCH (08:51)
--- NOTE | 2019-01-18 09:01 | PN ---
Subjective Date of Service: 01/18/19 Interval History: Pt feels well, had night sweats last night Objective Active Medications: Acetaminophen (Tylenol Tab*) 650 mg PO Q4H PRN PRN Reason: FEVER/PAIN Last Admin: 01/17/19 22:50 Dose: 650 mg Al Hydrox/Mg Hydrox/Simethicone (Maalox Plus*) 30 ml PO Q6H PRN PRN Reason: INDIGESTION Last Admin: 01/09/19 20:08 Dose: 30 ml Albuterol (Ventolin Hfa Inhaler*) 2 puff INH Q4H PRN PRN Reason: SOB/WHEEZING Last Admin: 01/10/19 12:13 Dose: 2 puff Cetirizine HCl (Zyrtec*) 10 mg PO DAILY [facility] Last Admin: 01/17/19 09:30 Dose: 10 mg Docusate Sodium (Colace Cap*) 100 mg PO BID PRN PRN Reason: CONSTIPATION Last Admin: 01/12/19 08:59 Dose: 100 mg Fluoxetine HCl (Prozac Cap*) 30 mg PO DAILY [facility] Last Admin: 01/17/19 09:29 Dose: 30 mg Fluticasone Propionate (Flonase Nasal [place] 50mcg*) 2 spray BOTH NARES DAILY [facility] Last Admin: 01/17/19 09:29 Dose: 2 spray Heparin Sodium (Porcine) (Heparin Vial(*)) 5,000 units SUBCUT Q8HR [facility] Last Admin: 01/18/19 06:19 Dose: 5,000 units Hydromorphone HCl (Dilaudid Tab*) 4 mg PO Q4H PRN PRN Reason: PAIN - SEVERE Last Admin: 01/17/19 17:56 Dose: 4 mg Hydromorphone HCl (Dilaudid Tab*) 6 mg PO Q4H PRN PRN Reason: PAIN - BREAKTHROUGH Last Admin: 01/18/19 08:47 Dose: 6 mg Metronidazole/Sodium Chloride (Flagyl 500 Mg Ivpb*) 500 mg in 100 mls @ 100 mls /hr IVPB 0830,2030 [facility] Last Admin: 01/18/19 08:51 Dose: 100 mls/hr Ceftriaxone Sodium 1 gm/ (Sodium Chloride) 50 mls @ 200 mls/hr IVPB Q24H [facility] Last Admin: 01/17/19 18:43 Dose: 200 mls/hr Lorazepam (Ativan Tab(*)) 0.5 mg PO BID PRN PRN Reason: ANXIETY Last Admin: 01/17/19 11:47 Dose: 0.5 mg Methadone HCl (Dolophine Tab*) 15 mg PO Q8H [facility] Last Admin: 01/18/19 06:18 Dose: 15 mg Montelukast Sodium (Singulair Tab*) 10 mg PO BEDTIME [facility] Last Admin: 01/17/19 20:02 Dose: 10 mg Nicotine Polacrilex (Nicotine Gum*) 2 mg PO Q2H PRN PRN Reason: CRAVING Last Admin: 01/16/19 20:30 Dose: 2 mg Ondansetron HCl (Zofran Inj*) 4 mg IV Q4H PRN PRN Reason: NAUSEA/VOMITING Pantoprazole Sodium (Protonix Tab*) 40 mg PO DAILY [facility] Last Admin: 01/17/19 09:30 Dose: 40 mg Polyethylene Glycol/Electrolytes (Miralax*) 17 gm PO BID [facility] Last Admin: 01/17/19 22:42 Dose: Not Given Pregabalin (Lyrica Cap(*)) 75 mg PO TID [facility] Last Admin: 01/17/19 20:49 Dose: 75 mg Senna (Senokot Tab*) 1 tab PO BID PRN PRN Reason: CONSTIPATION Last Admin: 01/12/19 08:59 Dose: 1 tab Sodium Biphosphate/Sodium Phosphate (Fleet Enema*) 1 bottle [place] DAILY PRN PRN Reason: CONSTIPATION Last Admin: 01/08/19 13:58 Dose: 1 bottle Trazodone HCl (Desyrel Tab*) 300 mg PO BEDTIME [facility] Last Admin: 01/17/19 20:02 Dose: 300 mg Vital Signs - 8 hr 01/18/19 01/18/19 01/18/19 02:21 03:47 04:51 Temperature 98.5 F Pulse Rate 68 Respiratory 18 16 Rate Blood Pressure 88/47 102/70 (mmHg) O2 Sat by Pulse 92 Oximetry 01/18/19 01/18/19 01/18/19 04:54 06:18 07:29 Temperature 98.2 F Pulse Rate 65 Respiratory 16 18 18 Rate Blood Pressure 78/52 (mmHg) O2 Sat by Pulse 94 Oximetry 01/18/19 01/18/19 08:10 08:47 Temperature Pulse Rate Respiratory 15 Rate Blood Pressure 98/58 (mmHg) O2 Sat by Pulse Oximetry Oxygen Devices in Use Now: None Appearance: 48 yo f in nAD, aAOx3 Eyes: No Scleral Icterus, PERRLA Ears/Nose/Mouth/Throat: NL Teeth, Lips, Gums, Mucous Membranes Moist Neck: NL Appearance and Movements; NL JVP, Trachea Midline Respiratory: Symmetrical Chest Expansion and Respiratory Effort, Clear to Auscultation Cardiovascular: NL Sounds; No Murmurs; No JVD Abdominal: NL Sounds; No Tenderness; No Distention Lymphatic: No Cervical Adenopathy Extremities: No Clubbing, Cyanosis, - - left leg s/p BKA with dressings not removed during visit Skin: No Nodules or Sclerosis Neurological: Alert and Oriented x 3, NL Muscle Strength and Tone Result Diagrams: 01/17/19 05:22 01/17/19 05:22 Additional Lab and Data: Lab Results 01/03/19 01/03/19 01/03/19 Range/Units 21:09 21:09 21:09 WBC 11.0 H (3.5-10.8) 10^3/uL RBC 4.51 (3.70-4.87) 10^6 /uL Hgb 12.1 (12.0-16.0) g/dL Hct 36 (33-41) % MCV 80 (80-97) fL MCH 27 (27-31) pg MCHC 34 (31-36) g/dL RDW 14 (10.5-15) % Plt Count 533 H (150-450) 10^3/uL MPV 7.9 (7.4-10.4) fL Neut % (Auto) 64.7 % Lymph % (Auto) 21.3 % [place] % (Auto) 12.7 % Eos % (Auto) 0.5 % Baso % (Auto) 0.8 % Absolute Neuts (auto) 7.1 (1.5-7.7) 10^3/ul Absolute Lymphs (auto) 2.3 (1.0-4.8) 10^3/ul Absolute Monos (auto) 1.4 H (0-0.8) 10^3/ul Absolute Eos (auto) 0.1 (0-0.6) 10^3/ul Absolute Basos (auto) 0.1 (0-0.2) 10^3/ul Absolute Nucleated RBC 0 10^3/ul Nucleated RBC % 0 ESR Pending Sodium 136 (135-145) mmol/L Potassium 3.0 L (3.5-5.0) mmol/L Chloride 96 L (101-111) mmol/L Carbon Dioxide 28 (22-32) mmol/L Anion Gap 12 H (2-11) mmol/L BUN 8 (6-24) mg/dL Creatinine 0.78 (0.51-0.95) mg/dL Est GFR ( Amer) 96.2 (>60) Est GFR (Non-Af Amer) 79.5 (>60) BUN/Creatinine Ratio 10.3 (8-20) Glucose 78 (70-100) mg/dL Lactic Acid 0.9 (0.5-2.0) mmol/L Calcium 9.5 (8.6-10.3) mg/dL Total Bilirubin 0.30 (0.2-1.0) mg/dL AST 22 (13-39) U/L ALT 15 (7-52) U/L Alkaline Phosphatase 256 H (34-104) U/L C-Reactive Protein Pending Total Protein 7.5 (6.4-8.9) g/dL Albumin 3.9 (3.2-5.2) g/dL Globulin 3.6 (2-4) g/dL Albumin/Globulin Ratio 1.1 (1-3) TSH 0.79 (0.34-5.60) mcIU/mL Beta HCG, Quant 1.24 mIU/mL Salicylates < 2.50 (<30) mg/dL Acetaminophen < 15 mcg/mL Serum Alcohol < 10 (<10) mg/dL Microbiology and Other Data: Microbiology 01/04/19 00:37 Gram Stain - Final Foot Left 01/04/19 01:24 Skin and Soft Tissue MRSA/MSSA (PCR - Final Foot Left Mrsa Negative S.aureus Positive Assess/Plan/Problems-Billing Assessment: 47 yo F with [facility] polysubstance abuse, hepatitis C , anxiety/ depression, with recent history of left leg compartment syndrome after syncope and collapse on 09/18, rhabdo, s/p 4 fasciotomies, and multiple I&Ds now living alone presented back to the ED on 01/04 with SI and was noted to have L foot wound - Patient Problems (1) Osteomyelitis Comment: acute s/p debridement in OR on 01/04/19, 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 cont ceftriaxone/flagyl. Wound cx positive for Providencia, Haemophilus, Prevotella, Peptoniphilus ID following; will await final recommendations re: senior living abx plans (2) Anxiety and depression Comment: With SI that so far resolved Appreciate psychiatry consult-cont Prozac, Trazadone 1:1 obs d/c'd on 01/06/19 (3) Chronic, continuous use of opioids Comment: Dr. Cabrera adjusted pain meds post op (4) Polysubstance (including opioids) dependence w/o physiol dependence Comment: UDS positive for cocaine, amphetamines, cannabis at admission (5) Hypotension Comment: pt asymptomatic, non toxic appearing, Has had chronically low BP (6) Peripheral arterial disease Comment: aterior tibial and dorsalis pedis with very poor flow but not able to be stented s/p L BKA 01/16/19 (7) DVT prophylaxis Comment: SCD's Status and Disposition: inpatient. Awaiting [facility]'s decision re: possible admission there
[2019-01-18] MEDS: Pregabalin CAP(*) 25 MG PO SCH ×3 (10:00→21:55)
[2019-01-18] MEDS: Cetirizine* 10 MG TAB PO SCH (10:00)
[2019-01-18] MEDS: Pantoprazole TAB * 40 MG TAB PO SCH (10:00)
[2019-01-18] MEDS: FLUoxetine CAP* 10 MG PO SCH (10:00)
[2019-01-18] MEDS: Fluticasone NASAL SPRAY 50MCG* 16 gm SPRAY BTL BOTH NARES SCH (10:00)
[2019-01-18] MEDS: Polyethylene Glycol 3350* 17 GM PACKET PO SCH ×2 (10:01→22:09)
[2019-01-18] MEDS: LORazepam TAB(*) 0.5 MG PO PRN ×2 (10:05→20:12)
[2019-01-18 10:25] LABS: Calcium 9.4 mg/dL (8.6-10.3); EGFR African American 100.7 (>60); EGFR Non-African American 83.2 (>60)
[2019-01-18] MEDS: cefTRIAXone(*) 1 GM in NS 0.9% 50 ML* 50 ML IVPB SCH (17:22)
[2019-01-18] MEDS: Montelukast Sodium TAB* 10 MG PO SCH (20:11)
[2019-01-18] MEDS: Nicotine GUM* 2 MG PO PRN (20:12)
[2019-01-18] MEDS: traZODone TAB* 100 MG PO SCH (21:55)
[2019-01-19] MEDS: HYDROmorphone TAB* 2 MG PO PRN ×5 (00:29→22:33)
[2019-01-19] MEDS: Nicotine GUM* 2 MG PO PRN ×3 (00:32→16:35)
[2019-01-19] MEDS: HYDROmorphone TAB* 4 MG PO PRN (06:35)
[2019-01-19] MEDS: Methadone TAB* 5 MG PO SCH ×3 (06:35→21:58)
[2019-01-19] MEDS: Heparin VIAL(*) 5000 UNITS/ML VIAL (FIVE THOUSAND) SUBCUT SCH ×3 (06:35→21:59)
[2019-01-19] MEDS: Pantoprazole TAB * 40 MG TAB PO SCH (10:17)
[2019-01-19] MEDS: Polyethylene Glycol 3350* 17 GM PACKET PO SCH ×2 (10:17→22:01)
[2019-01-19] MEDS: FLUoxetine CAP* 10 MG PO SCH (10:17)
[2019-01-19] MEDS: Cetirizine* 10 MG TAB PO SCH (10:17)
[2019-01-19] MEDS: Pregabalin CAP(*) 25 MG PO SCH ×3 (10:17→21:56)
[2019-01-19] MEDS: Fluticasone NASAL SPRAY 50MCG* 16 gm SPRAY BTL BOTH NARES SCH (10:18)
[2019-01-19] MEDS ORDERED: Lactated Ringers 1000 ML Bag* 1,000 ML IV ONE (10:57)
--- NOTE | 2019-01-19 11:09 | PN ---
Subjective Date of Service: 01/19/19 Interval History: Pt seen and examined. Meds and labs reviewed. CC: N/A ROS: Denied MADSEN/dizziness, F/C, N/V, CP, SOB, increased cough, sputum production , abd pain, diarrhea, constipation, dysuria, myalgias, arthralgias, throat pain , and new skin lesions. The rest of the 14 point ROS are unremarkable. PHYSICAL EXAM: GEN APPEARANCE: Awake, not in acute distress HEENT: NC/AT, PERRLA, moist oral mucosa, (-) throat erythema NECK: Soft, supple, (-) cervical LAD, (-)JVD HEART: S1S2 WNL, RRR, No MRG CHEST: CTA, BL, GAE, No W/R/R ABD: Soft, ND/NT, NABS 4x Q EXT: No C/C/LLE stump wrapped in DEEPTHI bandages, cdi SKIN: Warm to touch PSYCH: No active psychosis, hallucinations, depression, SI/HI Objective Active Medications: Acetaminophen (Tylenol Tab*) 650 mg PO Q4H PRN PRN Reason: FEVER/PAIN Last Admin: 01/17/19 22:50 Dose: 650 mg Al Hydrox/Mg Hydrox/Simethicone (Maalox Plus*) 30 ml PO Q6H PRN PRN Reason: INDIGESTION Last Admin: 01/09/19 20:08 Dose: 30 ml Albuterol (Ventolin Hfa Inhaler*) 2 puff INH Q4H PRN PRN Reason: SOB/WHEEZING Last Admin: 01/10/19 12:13 Dose: 2 puff Cetirizine HCl (Zyrtec*) 10 mg PO DAILY [facility] Last Admin: 01/19/19 10:17 Dose: 10 mg Docusate Sodium (Colace Cap*) 100 mg PO BID PRN PRN Reason: CONSTIPATION Last Admin: 01/12/19 08:59 Dose: 100 mg Fluoxetine HCl (Prozac Cap*) 30 mg PO DAILY [facility] Last Admin: 01/19/19 10:17 Dose: 30 mg Fluticasone Propionate (Flonase Nasal [place] 50mcg*) 2 spray BOTH NARES DAILY [facility] Last Admin: 01/19/19 10:18 Dose: 2 spray Heparin Sodium (Porcine) (Heparin Vial(*)) 5,000 units SUBCUT Q8HR [facility] Last Admin: 01/19/19 06:35 Dose: 5,000 units Hydromorphone HCl (Dilaudid Tab*) 4 mg PO Q4H PRN PRN Reason: PAIN - SEVERE Last Admin: 01/19/19 06:35 Dose: 4 mg Hydromorphone HCl (Dilaudid Tab*) 6 mg PO Q4H PRN PRN Reason: PAIN - BREAKTHROUGH Last Admin: 01/19/19 06:47 Dose: 2 mg Ceftriaxone Sodium 1 gm/ (Sodium Chloride) 50 mls @ 200 mls/hr IVPB Q24H [facility] Last Admin: 01/18/19 17:22 Dose: 200 mls/hr Lactated Ringer's (Lactated Ringers 1000 Ml Bag*) 1,000 mls @ 100 mls/hr IV ONCE ONE Stop: 01/19/19 20:56 Lorazepam (Ativan Tab(*)) 0.5 mg PO BID PRN PRN Reason: ANXIETY Last Admin: 01/18/19 20:12 Dose: 0.5 mg Methadone HCl (Dolophine Tab*) 15 mg PO Q8H [facility] Last Admin: 01/19/19 06:35 Dose: 15 mg Montelukast Sodium (Singulair Tab*) 10 mg PO BEDTIME [facility] Last Admin: 01/18/19 20:11 Dose: 10 mg Nicotine Polacrilex (Nicotine Gum*) 2 mg PO Q2H PRN PRN Reason: CRAVING Last Admin: 01/19/19 10:23 Dose: 2 mg Ondansetron HCl (Zofran Inj*) 4 mg IV Q4H PRN PRN Reason: NAUSEA/VOMITING Pantoprazole Sodium (Protonix Tab*) 40 mg PO DAILY [facility] Last Admin: 01/19/19 10:17 Dose: 40 mg Polyethylene Glycol/Electrolytes (Miralax*) 17 gm PO BID [facility] Last Admin: 01/19/19 10:17 Dose: 17 gm Pregabalin (Lyrica Cap(*)) 75 mg PO TID [facility] Last Admin: 01/19/19 10:17 Dose: 75 mg Senna (Senokot Tab*) 1 tab PO BID PRN PRN Reason: CONSTIPATION Last Admin: 01/12/19 08:59 Dose: 1 tab Sodium Biphosphate/Sodium Phosphate (Fleet Enema*) 1 bottle [place] DAILY PRN PRN Reason: CONSTIPATION Last Admin: 01/08/19 13:58 Dose: 1 bottle Trazodone HCl (Desyrel Tab*) 300 mg PO BEDTIME [facility] Last Admin: 01/18/19 21:55 Dose: 300 mg Vital Signs - 8 hr 01/19/19 01/19/19 01/19/19 03:31 06:35 06:47 Temperature 98.1 F Pulse Rate 63 Respiratory 14 16 16 Rate Blood Pressure 94/56 (mmHg) O2 Sat by Pulse 92 Oximetry 01/19/19 01/19/19 01/19/19 06:51 07:53 08:00 Temperature 97.8 F Pulse Rate 64 Respiratory 16 16 18 Rate Blood Pressure 93/53 (mmHg) O2 Sat by Pulse 93 93 Oximetry 01/19/19 01/19/19 10:17 10:23 Temperature Pulse Rate Respiratory 18 18 Rate Blood Pressure (mmHg) O2 Sat by Pulse Oximetry Oxygen Devices in Use Now: None Result Diagrams: 01/17/19 05:22 01/18/19 09:53 Additional Lab and Data: Lab Results 01/03/19 01/03/19 01/03/19 Range/Units 21:09 21:09 21:09 WBC 11.0 H (3.5-10.8) 10^3/uL RBC 4.51 (3.70-4.87) 10^6 /uL Hgb 12.1 (12.0-16.0) g/dL Hct 36 (33-41) % MCV 80 (80-97) fL MCH 27 (27-31) pg MCHC 34 (31-36) g/dL RDW 14 (10.5-15) % Plt Count 533 H (150-450) 10^3/uL MPV 7.9 (7.4-10.4) fL Neut % (Auto) 64.7 % Lymph % (Auto) 21.3 % [place] % (Auto) 12.7 % Eos % (Auto) 0.5 % Baso % (Auto) 0.8 % Absolute Neuts (auto) 7.1 (1.5-7.7) 10^3/ul Absolute Lymphs (auto) 2.3 (1.0-4.8) 10^3/ul Absolute Monos (auto) 1.4 H (0-0.8) 10^3/ul Absolute Eos (auto) 0.1 (0-0.6) 10^3/ul Absolute Basos (auto) 0.1 (0-0.2) 10^3/ul Absolute Nucleated RBC 0 10^3/ul Nucleated RBC % 0 ESR Pending Sodium 136 (135-145) mmol/L Potassium 3.0 L (3.5-5.0) mmol/L Chloride 96 L (101-111) mmol/L Carbon Dioxide 28 (22-32) mmol/L Anion Gap 12 H (2-11) mmol/L BUN 8 (6-24) mg/dL Creatinine 0.78 (0.51-0.95) mg/dL Est GFR ( Amer) 96.2 (>60) Est GFR (Non-Af Amer) 79.5 (>60) BUN/Creatinine Ratio 10.3 (8-20) Glucose 78 (70-100) mg/dL Lactic Acid 0.9 (0.5-2.0) mmol/L Calcium 9.5 (8.6-10.3) mg/dL Total Bilirubin 0.30 (0.2-1.0) mg/dL AST 22 (13-39) U/L ALT 15 (7-52) U/L Alkaline Phosphatase 256 H (34-104) U/L C-Reactive Protein Pending Total Protein 7.5 (6.4-8.9) g/dL Albumin 3.9 (3.2-5.2) g/dL Globulin 3.6 (2-4) g/dL Albumin/Globulin Ratio 1.1 (1-3) TSH 0.79 (0.34-5.60) mcIU/mL Beta HCG, Quant 1.24 mIU/mL Salicylates < 2.50 (<30) mg/dL Acetaminophen < 15 mcg/mL Serum Alcohol < 10 (<10) mg/dL Microbiology and Other Data: Microbiology 01/04/19 00:37 Gram Stain - Final Foot Left 01/04/19 01:24 Skin and Soft Tissue MRSA/MSSA (PCR - Final Foot Left Mrsa Negative S.aureus Positive Assess/Plan/Problems-Billing Assessment: 47 yo F with H polysubstance abuse, hepatitis C , anxiety/ depression, with recent history of left leg compartment syndrome after syncope and collapse on 09/18, rhabdo, s/p 4 fasciotomies, and multiple I&Ds now living alone presented back to the ED on 01/04 with SI and was noted to have L foot wound - Patient Problems (1) Osteomyelitis Current Visit: Yes Status: Acute Code(s): M86.9 - OSTEOMYELITIS, UNSPECIFIED SNOMED Code(s): 65953600 Comment: -s/p debridement in OR on 01/04/19, 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 cont ceftriaxone/flagyl. -Wound cx positive for Providencia, Haemophilus, Prevotella, Peptoniphilus -ID following; will await final recommendations re: jail abx plans; spoke w/ Mirna briefly this AM and discussed tentative plan is to D/C abx today; will defer upon discussion with Dr. Shelby and appreciate Sharmila input (2) Hypotension Current Visit: Yes Status: Acute Comment: -s/p debridement in OR on 01/04/19, 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 cont ceftriaxone/flagyl. -Wound cx positive for Providencia, Haemophilus, Prevotella, Peptoniphilus -ID following; will await final recommendations re: jail abx plans; spoke w/ Mirna briefly this AM and discussed tentative plan is to D/C abx today; will defer upon discussion with Dr. Shelby and appreciate Sharmila input -Mild -Possibly due to mild DHN given I/Os suggestive of this and otherwise asymptomatic -Will place pt on LR as ordered -Continue watchful waiting (3) Anxiety and depression Current Visit: No Status: Acute Code(s): F41.9 - ANXIETY DISORDER, UNSPECIFIED; F32.9 - MAJOR DEPRESSIVE DISORDER, SINGLE EPISODE, UNSPECIFIED SNOMED Code(s): 644493324 Comment: With SI that so far resolved Appreciate psychiatry consult-cont Prozac, Trazadone 1:1 obs d/c'd on 01/06/19 (4) Chronic, continuous use of opioids Current Visit: No Status: Acute Code(s): F11.90 - OPIOID USE, UNSPECIFIED, UNCOMPLICATED SNOMED Code(s): 236587806 Comment: Dr. Cabrera adjusted pain meds post op (5) Polysubstance (including opioids) dependence w/o physiol dependence Current Visit: No Status: Acute Code(s): F19.20 - OTHER PSYCHOACTIVE SUBSTANCE DEPENDENCE, UNCOMPLICATED SNOMED Code(s): 04931377 Comment: UDS positive for cocaine, amphetamines, cannabis at admission (6) Peripheral arterial disease Current Visit: Yes Status: Acute Code(s): I73.9 - PERIPHERAL VASCULAR DISEASE, UNSPECIFIED SNOMED Code(s): 747209992 Comment: aterior tibial and dorsalis pedis with very poor flow but not able to be stented s/p L BKA 01/16/19 (7) DVT prophylaxis Current Visit: No Status: Acute Priority: Low Code(s): NVJ3116 - SNOMED Code(s): 564496156 Comment: SCD's Status and Disposition: inpatient. Awaiting [facility]'s decision re: possible admission there
--- NOTE | 2019-01-19 11:11 | PN ---
Progress Note - Progress Note Date of Service: 01/19/19 SOAP: Subjective: resting comfortably in bed with no complaints, moderate pain when OOB, controlled by current pain regimen Objective: Vital Signs Temp Pulse Resp BP Pulse Ox 97.8 F 64 16 93/53 93 01/19/19 07:53 01/19/19 07:53 01/19/19 11:06 01/19/19 07:53 01/19/19 08:00 Laboratory Last Values WBC 10.7 10^3/uL (3.5-10.8) 01/17/19 05:22 RBC 4.44 10^6 /uL (3.70-4.87) 01/17/19 05:22 Hgb 11.8 g/dL (12.0-16.0) L 01/17/19 05:22 Hct 35 % (35-47) 01/17/19 05:22 MCV 78 fL (80-97) L 01/17/19 05:22 MCH 27 pg (27-31) 01/17/19 05:22 MCHC 34 g/dL (31-36) 01/17/19 05:22 RDW 15 % (10.5-15) 01/17/19 05:22 Plt Count 282 10^3/uL (150-450) 01/17/19 05:22 MPV 8.0 fL (7.4-10.4) 01/17/19 05:22 Neut % (Auto) 75.5 % 01/17/19 05:22 Lymph % (Auto) 12.5 % 01/17/19 05:22 [place] % (Auto) 10.8 % 01/17/19 05:22 Eos % (Auto) 0.3 % 01/17/19 05:22 Baso % (Auto) 0.9 % 01/17/19 05:22 Absolute Neuts (auto) 8.1 10^3/ul (1.5-7.7) H 01/17/19 05:22 Absolute Lymphs (auto) 1.3 10^3/ul (1.0-4.8) 01/17/19 05:22 Absolute Monos (auto) 1.2 10^3/ul (0-0.8) H 01/17/19 05:22 Absolute Eos (auto) 0.0 10^3/ul (0-0.6) 01/17/19 05:22 Absolute Basos (auto) 0.1 10^3/ul (0-0.2) 01/17/19 05:22 Absolute Nucleated RBC 0.0 10^3/ul 01/17/19 05:22 Nucleated RBC % 0.0 01/17/19 05:22 ESR > 120 mm/Hr (0-19) H 01/03/19 21:09 INR (Anticoag Therapy) 1.27 (0.82-1.09) H 01/17/19 11:05 APTT 29.0 seconds (26.0-36.3) 01/17/19 11:05 Sodium 138 mmol/L (135-145) 01/18/19 09:53 Potassium 4.0 mmol/L (3.5-5.0) 01/18/19 09:53 Chloride 104 mmol/L (101-111) 01/18/19 09:53 Carbon Dioxide 29 mmol/L (22-32) 01/18/19 09:53 Anion Gap 5 mmol/L (2-11) 01/18/19 09:53 BUN 12 mg/dL (6-24) 01/18/19 09:53 Creatinine 0.75 mg/dL (0.51-0.95) 01/18/19 09:53 Est GFR ( Amer) 100.7 (>60) 01/18/19 09:53 Est GFR (Non-Af Amer) 83.2 (>60) 01/18/19 09:53 BUN/Creatinine Ratio 16.0 (8-20) 01/18/19 09:53 Glucose 120 mg/dL (70-100) H 01/18/19 09:53 POC Glucose (mg/dL) 93 mg/dL (70-100) 01/14/19 07:52 Lactic Acid 1.4 mmol/L (0.5-2.0) 01/08/19 06:03 Calcium 9.4 mg/dL (8.6-10.3) 01/18/19 09:53 Magnesium 2.0 mg/dL (1.9-2.7) 01/07/19 07:06 Total Bilirubin 0.20 mg/dL (0.2-1.0) 01/15/19 05:18 AST 19 U/L (13-39) 01/15/19 05:18 ALT 8 U/L (7-52) 01/15/19 05:18 Alkaline Phosphatase 111 U/L (34-104) H 01/15/19 05:18 C-Reactive Protein 1.58 mg/L (<8.01) 01/15/19 05:18 Total Protein 6.1 g/dL (6.4-8.9) L 01/15/19 05:18 Albumin 3.3 g/dL (3.2-5.2) 01/15/19 05:18 Globulin 2.8 g/dL (2-4) 01/15/19 05:18 Albumin/Globulin Ratio 1.2 (1-3) 01/15/19 05:18 TSH 0.79 mcIU/mL (0.34-5.60) 01/03/19 21:09 Beta HCG, Quant 1.24 mIU/mL 01/03/19 21:09 Urine Color Yellow 01/16/19 18:09 Urine Appearance Clear 01/16/19 18:09 Urine pH 6.0 (5-9) 01/16/19 18:09 Ur Specific [place] 1.012 (1.010-1.030) 01/16/19 18:09 Urine Protein Negative (Negative) 01/16/19 18:09 Urine Ketones Negative (Negative) 01/16/19 18:09 Urine Blood 1+ (Negative) A 01/16/19 18:09 Urine Nitrate Negative (Negative) 01/16/19 18:09 Urine Bilirubin Negative (Negative) 01/16/19 18:09 Urine Urobilinogen Negative (Negative) 01/16/19 18:09 Ur Leukocyte Esterase Negative (Negative) 01/16/19 18:09 Urine WBC (Auto) Trace(0-5/hpf) (Absent) 01/16/19 18:09 Urine RBC (Auto) 1+(3-5/hpf) (Absent) A 01/16/19 18:09 Ur Squamous Epith Cells Present (Absent) A 01/16/19 18:09 Urine Bacteria Absent (Absent) 01/16/19 18:09 Urine Glucose Negative (Negative) 01/16/19 18:09 Salicylates < 2.50 mg/dL (<30) 01/03/19 21:09 Urine Opiates Screen None detected (None Detect) 01/04/19 01:45 Acetaminophen < 15 mcg/mL 01/03/19 21:09 Ur Barbiturates Screen None detected (None Detect) 01/04/19 01:45 Ur Phencyclidine Scrn None detected (None Detect) 01/04/19 01:45 Ur Amphetamines Screen Presumptive positive (None Detect) A 01/04/19 01:45 U Benzodiazepines Scrn None detected (None Detect) 01/04/19 01:45 Urine Cocaine Screen Presumptive positive (None Detect) A 01/04/19 01:45 U Cannabinoids Screen Presumptive positive (None Detect) A 01/04/19 01:45 Serum Alcohol < 10 mg/dL (<10) 01/03/19 21:09 incision: c/d/i Assessment: s/p left BKA Plan: 1) Heparin for DVT prophylaxis 2) pain medications per Dr. Cabrera 3) NWB LLE 4) hospitalist co-managing- D/C'd IV abx today 5) awaiting rehab placement
--- NOTE | 2019-01-19 11:18 | PN ---
Progress Note - Progress Note Date of Service: 01/19/19 SOAP: Subjective: CC: Left foot infection HPI: Ms. Trujillo is a 48 yo female with PMH significant for polysubstance abuse, and history of left lower extremity compartment syndrome in 09/2018 with a complicated postoperative course who presented to the hospital with complaints of SI and left foot wound. Denies fever, chills, shortness of breath, chest discomfort, N/V. She states that she is having a couple loose stools daily, and is taking Miralax. Objective: Vital Signs - 8 hr 01/19/19 01/19/19 01/19/19 03:31 06:35 06:47 Temperature 98.1 F Pulse Rate 63 Respiratory 14 16 16 Rate Blood Pressure 94/56 (mmHg) O2 Sat by Pulse 92 Oximetry 01/19/19 01/19/19 01/19/19 06:51 07:53 08:00 Temperature 97.8 F Pulse Rate 64 Respiratory 16 16 18 Rate Blood Pressure 93/53 (mmHg) O2 Sat by Pulse 93 93 Oximetry Physical Exam: General: NAD, laying in bed Neurological: Alert and Oriented x4 HEENT: No thrush, moist MM Cardiovascular: Heart rate regular Respiratory: Lung sounds clear Abdominal: Bowel sounds present, ABD soft, non tender and non distended Skin: No rash, surgical dressing to the left LE intact Microbiology 01/16/19 18:09 Urine Culture - Final Urine No Growth (<1,000 CFU/mL) 01/04/19 16:45 Fungal Culture - Preliminary Misc Source (See Comment) No Growth Week 1 01/04/19 16:45 Anaerobic Culture - Final Wound Prevotella Melaninogenica Acid Fast Bacilli Smear - Final 01/03/19 21:08 Aerobic Blood Culture - Final Blood Venous No Growth Day 5 Anaerobic Blood Culture - Final No Growth Day 5 01/03/19 21:08 Aerobic Blood Culture - Final Blood Venous No Growth Day 5 Anaerobic Blood Culture - Final No Growth Day 5 01/04/19 00:37 Gram Stain - Final Foot Left Wound Culture - Final Alcaligenes Species Providencia Rettgeri Peptoniphilus Asaccharolyticus Normal Rody 01/04/19 16:45 Gram Stain - Final Foot Left Wound Culture - Final Haemophilus Parainfluenzae Normal Rody 01/04/19 01:24 Skin and Soft Tissue MRSA/MSSA (PCR - Final Foot Left Mrsa Negative S.aureus Positive Assessment: 1. Left foot infection with osteomyelitis. Multiple organisms growing in her wound cultures including Haemophilus parainfluenzae, Staphylococcus aureus, alcaligenes species, Providencia rettgeri, Peptoniphilus asaccharolyticus, MRSA negative. Anaerobic cultures with Prevotella Melaninogenica. Fungal culture with no growth to date. Blood cultures with no growth to date. S/P left foot wound I+D and placement of wound vac on 01/04/[address] Appiah. S/P left foot wound debridement and wound vac dressing change on 01/07/[address] Wen. S/P left BKA, POD #[address] Appiah. Afebrile and no leukocytosis. CRP no longer elevated. Received 16 days of ceftriaxone AND 14 days of Flagyl 2. Chronic pain. Plan: Discontinue IV ABX today.
[2019-01-19] MEDS: LORazepam TAB(*) 0.5 MG PO PRN (16:36)
[2019-01-19] MEDS: Montelukast Sodium TAB* 10 MG PO SCH (21:57)
[2019-01-19] MEDS: traZODone TAB* 100 MG PO SCH (21:58)
[2019-01-20] MEDS: HYDROmorphone TAB* 2 MG PO PRN ×5 (04:13→21:54)
[2019-01-20] MEDS: Heparin VIAL(*) 5000 UNITS/ML VIAL (FIVE THOUSAND) SUBCUT SCH ×3 (07:01→21:56)
[2019-01-20] MEDS: Methadone TAB* 5 MG PO SCH ×3 (07:01→21:55)
[2019-01-20 07:03] LABS: ABS Basophils 0.1 10^3/ul (0-0.2); ABS Eosinophils 0.2 10^3/ul (0-0.6); ABS Lymphocytes 2.7 10^3/ul (1.0-4.8); ABS Neutrophils 3.8 10^3/ul (1.5-7.7); Eosinophil % 3.1 %; Hematocrit 33 % (35-47); Hemoglobin 10.9 g/dL (12.0-16.0); Lymphocyte % 34.4 %; Mean Corpuscular HGB Conc 33 g/dL (31-36); Mean Corpuscular Hemoglobin 26 pg (27-31); Mean Corpuscular Volume 79 fL (80-97); Mean Platelet Volume 8.3 fL (7.4-10.4); Nucleated Red Blood Cells % 0.1; Platelet Count 275 10^3/uL (150-450); Red Blood Count 4.14 10^6 /uL (3.70-4.87); Red Cell Distribution Width 15 % (10.5-15); White Blood Count 7.8 10^3/uL (3.5-10.8)
[2019-01-20 07:32] LABS: Albumin 3.6 g/dL (3.2-5.2); Calcium 9.3 mg/dL (8.6-10.3); Magnesium 1.9 mg/dL (1.9-2.7); Potassium 3.6 mmol/L (3.5-5.0); Total Bilirubin 0.2 mg/dL (0.2-1.0)
[2019-01-20 07:39] LABS: Albumin/Globulin Ratio 1.2 (1-3); BUN/Creatinine Ratio 24.2 (8-20); EGFR African American 116.7 (>60); EGFR Non-African American 96.4 (>60); Phosphorus 5.6 mg/dL (2.5-5.0); Total Protein 6.6 g/dL (6.4-8.9)
[2019-01-20] MEDS: Cetirizine* 10 MG TAB PO SCH (09:13)
[2019-01-20] MEDS: FLUoxetine CAP* 10 MG PO SCH (09:14)
[2019-01-20] MEDS: Pregabalin CAP(*) 25 MG PO SCH ×3 (09:14→21:55)
[2019-01-20] MEDS: Polyethylene Glycol 3350* 17 GM PACKET PO SCH ×2 (09:15→21:56)
[2019-01-20] MEDS: Pantoprazole TAB * 40 MG TAB PO SCH (09:15)
[2019-01-20] MEDS: Fluticasone NASAL SPRAY 50MCG* 16 gm SPRAY BTL BOTH NARES SCH (09:27)
[2019-01-20] MEDS: Nicotine GUM* 2 MG PO PRN ×3 (09:28→22:00)
--- NOTE | 2019-01-20 12:15 | PN ---
Progress Note - Progress Note Date of Service: 01/20/19 SOAP: Subjective: Pt seen sitting comfortably in chair. States pain is tolerable. Denies CP, SOB. Vital Signs: Temp Pulse Resp BP Pulse Ox 97.7 F 71 16 96/59 97 01/20/19 12:04 01/20/19 12:04 01/20/19 12:04 01/20/19 12:04 01/20/19 12:04 Laboratory Last Values WBC 7.8 10^3/uL (3.5-10.8) 01/20/19 06:44 RBC 4.14 10^6 /uL (3.70-4.87) 01/20/19 06:44 Hgb 10.9 g/dL (12.0-16.0) L 01/20/19 06:44 Hct 33 % (35-47) L 01/20/19 06:44 MCV 79 fL (80-97) L 01/20/19 06:44 MCH 26 pg (27-31) L 01/20/19 06:44 MCHC 33 g/dL (31-36) 01/20/19 06:44 RDW 15 % (10.5-15) 01/20/19 06:44 Plt Count 275 10^3/uL (150-450) 01/20/19 06:44 MPV 8.3 fL (7.4-10.4) 01/20/19 06:44 Neut % (Auto) 49.2 % 01/20/19 06:44 Lymph % (Auto) 34.4 % 01/20/19 06:44 [place] % (Auto) 12.3 % 01/20/19 06:44 Eos % (Auto) 3.1 % 01/20/19 06:44 Baso % (Auto) 1.0 % 01/20/19 06:44 Absolute Neuts (auto) 3.8 10^3/ul (1.5-7.7) 01/20/19 06:44 Absolute Lymphs (auto) 2.7 10^3/ul (1.0-4.8) 01/20/19 06:44 Absolute Monos (auto) 1.0 10^3/ul (0-0.8) H 01/20/19 06:44 Absolute Eos (auto) 0.2 10^3/ul (0-0.6) 01/20/19 06:44 Absolute Basos (auto) 0.1 10^3/ul (0-0.2) 01/20/19 06:44 Absolute Nucleated RBC 0.0 10^3/ul 01/20/19 06:44 Nucleated RBC % 0.1 01/20/19 06:44 ESR > 120 mm/Hr (0-19) H 01/03/19 21:09 INR (Anticoag Therapy) 1.27 (0.82-1.09) H 01/17/19 11:05 APTT 29.0 seconds (26.0-36.3) 01/17/19 11:05 Sodium 138 mmol/L (135-145) 01/20/19 06:44 Potassium 3.6 mmol/L (3.5-5.0) 01/20/19 06:44 Chloride 103 mmol/L (101-111) 01/20/19 06:44 Carbon Dioxide 27 mmol/L (22-32) 01/20/19 06:44 Anion Gap 8 mmol/L (2-11) 01/20/19 06:44 BUN 16 mg/dL (6-24) 01/20/19 06:44 Creatinine 0.66 mg/dL (0.51-0.95) 01/20/19 06:44 Est GFR ( Amer) 116.7 (>60) 01/20/19 06:44 Est GFR (Non-Af Amer) 96.4 (>60) 01/20/19 06:44 BUN/Creatinine Ratio 24.2 (8-20) H 01/20/19 06:44 Glucose 92 mg/dL (70-100) 01/20/19 06:44 POC Glucose (mg/dL) 93 mg/dL (70-100) 01/14/19 07:52 Lactic Acid 1.4 mmol/L (0.5-2.0) 01/08/19 06:03 Calcium 9.3 mg/dL (8.6-10.3) 01/20/19 06:44 Phosphorus 5.6 mg/dL (2.5-5.0) H 01/20/19 06:44 Magnesium 1.9 mg/dL (1.9-2.7) 01/20/19 06:44 Total Bilirubin 0.20 mg/dL (0.2-1.0) 01/20/19 06:44 AST 13 U/L (13-39) 01/20/19 06:44 ALT 6 U/L (7-52) L 01/20/19 06:44 Alkaline Phosphatase 83 U/L (34-104) 01/20/19 06:44 C-Reactive Protein 1.58 mg/L (<8.01) 01/15/19 05:18 Total Protein 6.6 g/dL (6.4-8.9) 01/20/19 06:44 Albumin 3.6 g/dL (3.2-5.2) 01/20/19 06:44 Globulin 3.0 g/dL (2-4) 01/20/19 06:44 Albumin/Globulin Ratio 1.2 (1-3) 01/20/19 06:44 TSH 0.79 mcIU/mL (0.34-5.60) 01/03/19 21:09 Beta HCG, Quant 1.24 mIU/mL 01/03/19 21:09 Urine Color Yellow 01/16/19 18:09 Urine Appearance Clear 01/16/19 18:09 Urine pH 6.0 (5-9) 01/16/19 18:09 Ur Specific [place] 1.012 (1.010-1.030) 01/16/19 18:09 Urine Protein Negative (Negative) 01/16/19 18:09 Urine Ketones Negative (Negative) 01/16/19 18:09 Urine Blood 1+ (Negative) A 01/16/19 18:09 Urine Nitrate Negative (Negative) 01/16/19 18:09 Urine Bilirubin Negative (Negative) 01/16/19 18:09 Urine Urobilinogen Negative (Negative) 01/16/19 18:09 Ur Leukocyte Esterase Negative (Negative) 01/16/19 18:09 Urine WBC (Auto) Trace(0-5/hpf) (Absent) 01/16/19 18:09 Urine RBC (Auto) 1+(3-5/hpf) (Absent) A 01/16/19 18:09 Ur Squamous Epith Cells Present (Absent) A 01/16/19 18:09 Urine Bacteria Absent (Absent) 01/16/19 18:09 Urine Glucose Negative (Negative) 01/16/19 18:09 Salicylates < 2.50 mg/dL (<30) 01/03/19 21:09 Urine Opiates Screen None detected (None Detect) 01/04/19 01:45 Acetaminophen < 15 mcg/mL 01/03/19 21:09 Ur Barbiturates Screen None detected (None Detect) 01/04/19 01:45 Ur Phencyclidine Scrn None detected (None Detect) 01/04/19 01:45 Ur Amphetamines Screen Presumptive positive (None Detect) A 01/04/19 01:45 U Benzodiazepines Scrn None detected (None Detect) 01/04/19 01:45 Urine Cocaine Screen Presumptive positive (None Detect) A 01/04/19 01:45 U Cannabinoids Screen Presumptive positive (None Detect) A 01/04/19 01:45 Serum Alcohol < 10 mg/dL (<10) 01/03/19 21:09 Objective: A&O x3, NAD, Dressing clean and dry, NVI distally Assessment: 48 yo female s/p left BKA Plan: NWLuigi LLE Pain control per Dr. Deborah Webb for DVT prophylaxis Hospitalist co-managing Awaiting rehab placement
--- NOTE | 2019-01-20 13:01 | PN ---
Subjective Date of Service: 01/20/19 Interval History: Pt seen and examined. Meds and labs reviewed. CC: N/A ROS: Denied MADSEN/dizziness, F/C, N/V, CP, SOB, increased cough, sputum production , abd pain, diarrhea, constipation, dysuria, myalgias, arthralgias, throat pain , and new skin lesions. The rest of the 14 point ROS are unremarkable. PHYSICAL EXAM: GEN APPEARANCE: Awake, not in acute distress HEENT: NC/AT, PERRLA, moist oral mucosa, (-) throat erythema NECK: Soft, supple, (-) cervical LAD, (-)JVD HEART: S1S2 WNL, RRR, No MRG CHEST: CTA, BL, GAE, No W/R/R ABD: Soft, ND/NT, NABS 4x Q EXT: No C/C/LLE stump wrapped in DEEPTHI bandages, cdi SKIN: Warm to touch PSYCH: No active psychosis, hallucinations, depression, SI/HI Objective Active Medications: Acetaminophen (Tylenol Tab*) 650 mg PO Q4H PRN PRN Reason: FEVER/PAIN Last Admin: 01/17/19 22:50 Dose: 650 mg Al Hydrox/Mg Hydrox/Simethicone (Maalox Plus*) 30 ml PO Q6H PRN PRN Reason: INDIGESTION Last Admin: 01/09/19 20:08 Dose: 30 ml Albuterol (Ventolin Hfa Inhaler*) 2 puff INH Q4H PRN PRN Reason: SOB/WHEEZING Last Admin: 01/10/19 12:13 Dose: 2 puff Cetirizine HCl (Zyrtec*) 10 mg PO DAILY [facility] Last Admin: 01/20/19 09:13 Dose: 10 mg Docusate Sodium (Colace Cap*) 100 mg PO BID PRN PRN Reason: CONSTIPATION Last Admin: 01/12/19 08:59 Dose: 100 mg Fluoxetine HCl (Prozac Cap*) 30 mg PO DAILY [facility] Last Admin: 01/20/19 09:14 Dose: 30 mg Fluticasone Propionate (Flonase Nasal [place] 50mcg*) 2 spray BOTH NARES DAILY [facility] Last Admin: 01/20/19 09:27 Dose: 2 spray Heparin Sodium (Porcine) (Heparin Vial(*)) 5,000 units SUBCUT Q8HR [facility] Last Admin: 01/20/19 07:01 Dose: 5,000 units Hydromorphone HCl (Dilaudid Tab*) 4 mg PO Q4H PRN PRN Reason: PAIN - SEVERE Last Admin: 01/19/19 06:35 Dose: 4 mg Hydromorphone HCl (Dilaudid Tab*) 6 mg PO Q4H PRN PRN Reason: PAIN - BREAKTHROUGH Last Admin: 01/20/19 09:36 Dose: 6 mg Lorazepam (Ativan Tab(*)) 0.5 mg PO BID PRN PRN Reason: ANXIETY Last Admin: 01/19/19 16:36 Dose: 0.5 mg Methadone HCl (Dolophine Tab*) 15 mg PO Q8H [facility] Last Admin: 01/20/19 07:01 Dose: 15 mg Montelukast Sodium (Singulair Tab*) 10 mg PO BEDTIME [facility] Last Admin: 01/19/19 21:57 Dose: 10 mg Nicotine Polacrilex (Nicotine Gum*) 2 mg PO Q2H PRN PRN Reason: CRAVING Last Admin: 01/20/19 09:28 Dose: 2 mg Ondansetron HCl (Zofran Inj*) 4 mg IV Q4H PRN PRN Reason: NAUSEA/VOMITING Pantoprazole Sodium (Protonix Tab*) 40 mg PO DAILY [facility] Last Admin: 01/20/19 09:15 Dose: 40 mg Polyethylene Glycol/Electrolytes (Miralax*) 17 gm PO BID [facility] Last Admin: 01/20/19 09:15 Dose: 17 gm Pregabalin (Lyrica Cap(*)) 75 mg PO TID [facility] Last Admin: 01/20/19 09:14 Dose: 75 mg Senna (Senokot Tab*) 1 tab PO BID PRN PRN Reason: CONSTIPATION Last Admin: 01/12/19 08:59 Dose: 1 tab Sodium Biphosphate/Sodium Phosphate (Fleet Enema*) 1 bottle [place] DAILY PRN PRN Reason: CONSTIPATION Last Admin: 01/08/19 13:58 Dose: 1 bottle Trazodone HCl (Desyrel Tab*) 300 mg PO BEDTIME [facility] Last Admin: 01/19/19 21:58 Dose: 300 mg Vital Signs - 8 hr 01/20/19 01/20/19 01/20/19 07:01 07:08 08:00 Temperature Pulse Rate Respiratory 16 16 16 Rate Blood Pressure (mmHg) O2 Sat by Pulse 97 Oximetry 01/20/19 01/20/19 01/20/19 08:53 09:14 09:36 Temperature 98 F Pulse Rate 62 Respiratory 16 18 18 Rate Blood Pressure 92/56 (mmHg) O2 Sat by Pulse 97 Oximetry 01/20/19 12:04 Temperature 97.7 F Pulse Rate 71 Respiratory 16 Rate Blood Pressure 96/59 (mmHg) O2 Sat by Pulse 97 Oximetry Oxygen Devices in Use Now: None Result Diagrams: 01/20/19 06:44 01/20/19 06:44 Additional Lab and Data: Lab Results 01/03/19 01/03/19 01/03/19 Range/Units 21:09 21:09 21:09 WBC 11.0 H (3.5-10.8) 10^3/uL RBC 4.51 (3.70-4.87) 10^6 /uL Hgb 12.1 (12.0-16.0) g/dL Hct 36 (33-41) % MCV 80 (80-97) fL MCH 27 (27-31) pg MCHC 34 (31-36) g/dL RDW 14 (10.5-15) % Plt Count 533 H (150-450) 10^3/uL MPV 7.9 (7.4-10.4) fL Neut % (Auto) 64.7 % Lymph % (Auto) 21.3 % [place] % (Auto) 12.7 % Eos % (Auto) 0.5 % Baso % (Auto) 0.8 % Absolute Neuts (auto) 7.1 (1.5-7.7) 10^3/ul Absolute Lymphs (auto) 2.3 (1.0-4.8) 10^3/ul Absolute Monos (auto) 1.4 H (0-0.8) 10^3/ul Absolute Eos (auto) 0.1 (0-0.6) 10^3/ul Absolute Basos (auto) 0.1 (0-0.2) 10^3/ul Absolute Nucleated RBC 0 10^3/ul Nucleated RBC % 0 ESR Pending Sodium 136 (135-145) mmol/L Potassium 3.0 L (3.5-5.0) mmol/L Chloride 96 L (101-111) mmol/L Carbon Dioxide 28 (22-32) mmol/L Anion Gap 12 H (2-11) mmol/L BUN 8 (6-24) mg/dL Creatinine 0.78 (0.51-0.95) mg/dL Est GFR ( Amer) 96.2 (>60) Est GFR (Non-Af Amer) 79.5 (>60) BUN/Creatinine Ratio 10.3 (8-20) Glucose 78 (70-100) mg/dL Lactic Acid 0.9 (0.5-2.0) mmol/L Calcium 9.5 (8.6-10.3) mg/dL Total Bilirubin 0.30 (0.2-1.0) mg/dL AST 22 (13-39) U/L ALT 15 (7-52) U/L Alkaline Phosphatase 256 H (34-104) U/L C-Reactive Protein Pending Total Protein 7.5 (6.4-8.9) g/dL Albumin 3.9 (3.2-5.2) g/dL Globulin 3.6 (2-4) g/dL Albumin/Globulin Ratio 1.1 (1-3) TSH 0.79 (0.34-5.60) mcIU/mL Beta HCG, Quant 1.24 mIU/mL Salicylates < 2.50 (<30) mg/dL Acetaminophen < 15 mcg/mL Serum Alcohol < 10 (<10) mg/dL Microbiology and Other Data: Microbiology 01/04/19 00:37 Gram Stain - Final Foot Left 01/04/19 01:24 Skin and Soft Tissue MRSA/MSSA (PCR - Final Foot Left Mrsa Negative S.aureus Positive Assess/Plan/Problems-Billing Assessment: 47 yo F with H polysubstance abuse, hepatitis C , anxiety/ depression, with recent history of left leg compartment syndrome after syncope and collapse on 09/18, rhabdo, s/p 4 fasciotomies, and multiple I&Ds now living alone presented back to the ED on 01/04 with SI and was noted to have L foot wound - Patient Problems (1) Osteomyelitis Current Visit: Yes Status: Acute Code(s): M86.9 - OSTEOMYELITIS, UNSPECIFIED SNOMED Code(s): 73240253 Comment: -s/p debridement in OR on 01/04/19, 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 -Ceftriaxone/flagyl D/Cd yesterday per ID and will deferappreciate ID review -Wound cx positive for Providencia, Haemophilus, Prevotella, Peptoniphilus (2) Hypotension Current Visit: Yes Status: Acute Comment: -s/p debridement in OR on 01/04/19, 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 -Mild -Possibly due to mild DHN given I/Os suggestive of this and otherwise asymptomatic -LR ordered yesterday wasnt given due to poor IV access -Continue watchful waiting and maybe her baseline (3) Anxiety and depression Current Visit: No Status: Acute Code(s): F41.9 - ANXIETY DISORDER, UNSPECIFIED; F32.9 - MAJOR DEPRESSIVE DISORDER, SINGLE EPISODE, UNSPECIFIED SNOMED Code(s): 453241227 Comment: With SI that so far resolved Appreciate psychiatry consult-cont Prozac, Trazadone 1:1 obs d/c'd on 01/06/19 (4) Chronic, continuous use of opioids Current Visit: No Status: Acute Code(s): F11.90 - OPIOID USE, UNSPECIFIED, UNCOMPLICATED SNOMED Code(s): 854917607 Comment: Dr. Cabrera adjusted pain meds post op (5) Polysubstance (including opioids) dependence w/o physiol dependence Current Visit: No Status: Acute Code(s): F19.20 - OTHER PSYCHOACTIVE SUBSTANCE DEPENDENCE, UNCOMPLICATED SNOMED Code(s): 27049334 Comment: UDS positive for cocaine, amphetamines, cannabis at admission (6) Peripheral arterial disease Current Visit: Yes Status: Acute Code(s): I73.9 - PERIPHERAL VASCULAR DISEASE, UNSPECIFIED SNOMED Code(s): 761355273 Comment: aterior tibial and dorsalis pedis with very poor flow but not able to be stented s/p L BKA 01/16/19 (7) DVT prophylaxis Current Visit: No Status: Acute Priority: Low Code(s): QOR0299 - SNOMED Code(s): 042847306 Comment: SCD's Status and Disposition: -Awaiting placement from either [facility] or [facility] [place]
[2019-01-20] MEDS: LORazepam TAB(*) 0.5 MG PO PRN ×2 (18:01→23:45)
[2019-01-20] MEDS: traZODone TAB* 100 MG PO SCH (21:54)
[2019-01-20] MEDS: Montelukast Sodium TAB* 10 MG PO SCH (21:56)
[2019-01-21] MEDS: HYDROmorphone TAB* 2 MG PO PRN ×4 (03:08→20:49)
[2019-01-21] MEDS: Nicotine GUM* 2 MG PO PRN ×4 (03:12→21:57)
[2019-01-21] MEDS: Methadone TAB* 5 MG PO SCH ×3 (06:30→21:52)
[2019-01-21] MEDS: Heparin VIAL(*) 5000 UNITS/ML VIAL (FIVE THOUSAND) SUBCUT SCH ×3 (06:32→21:53)
--- NOTE | 2019-01-21 10:04 | PN ---
Subjective Date of Service: 01/21/19 Interval History: Pt seen and examined. Meds and labs reviewed. No O/N issues CC: N/A ROS: Denied MADSEN/dizziness, F/C, N/V, CP, SOB, increased cough, sputum production , abd pain, diarrhea, constipation, dysuria, myalgias, arthralgias, throat pain , and new skin lesions. The rest of the 14 point ROS are unremarkable. PHYSICAL EXAM: GEN APPEARANCE: Awake, not in acute distress HEENT: NC/AT, PERRLA, moist oral mucosa, (-) throat erythema NECK: Soft, supple, (-) cervical LAD, (-)JVD HEART: S1S2 WNL, RRR, No MRG CHEST: CTA, BL, GAE, No W/R/R ABD: Soft, ND/NT, NABS 4x Q EXT: No C/C/LLE stump wrapped in DEEPTHI bandages, cdi SKIN: Warm to touch PSYCH: No active psychosis, hallucinations, depression, SI/HI Objective Active Medications: Acetaminophen (Tylenol Tab*) 650 mg PO Q4H PRN PRN Reason: FEVER/PAIN Last Admin: 01/17/19 22:50 Dose: 650 mg Al Hydrox/Mg Hydrox/Simethicone (Maalox Plus*) 30 ml PO Q6H PRN PRN Reason: INDIGESTION Last Admin: 01/09/19 20:08 Dose: 30 ml Albuterol (Ventolin Hfa Inhaler*) 2 puff INH Q4H PRN PRN Reason: SOB/WHEEZING Last Admin: 01/10/19 12:13 Dose: 2 puff Cetirizine HCl (Zyrtec*) 10 mg PO DAILY [facility] Last Admin: 01/20/19 09:13 Dose: 10 mg Docusate Sodium (Colace Cap*) 100 mg PO BID PRN PRN Reason: CONSTIPATION Last Admin: 01/12/19 08:59 Dose: 100 mg Fluoxetine HCl (Prozac Cap*) 30 mg PO DAILY [facility] Last Admin: 01/20/19 09:14 Dose: 30 mg Fluticasone Propionate (Flonase Nasal [place] 50mcg*) 2 spray BOTH NARES DAILY [facility] Last Admin: 01/20/19 09:27 Dose: 2 spray Heparin Sodium (Porcine) (Heparin Vial(*)) 5,000 units SUBCUT Q8HR [facility] Last Admin: 01/21/19 06:32 Dose: 5,000 units Hydromorphone HCl (Dilaudid Tab*) 4 mg PO Q4H PRN PRN Reason: PAIN - SEVERE Last Admin: 01/19/19 06:35 Dose: 4 mg Hydromorphone HCl (Dilaudid Tab*) 6 mg PO Q4H PRN PRN Reason: PAIN - BREAKTHROUGH Last Admin: 01/21/19 03:08 Dose: 6 mg Lorazepam (Ativan Tab(*)) 0.5 mg PO BID PRN PRN Reason: ANXIETY Last Admin: 01/20/19 23:45 Dose: 0.5 mg Methadone HCl (Dolophine Tab*) 15 mg PO Q8H [facility] Last Admin: 01/21/19 06:30 Dose: 15 mg Montelukast Sodium (Singulair Tab*) 10 mg PO BEDTIME [facility] Last Admin: 01/20/19 21:56 Dose: 10 mg Nicotine Polacrilex (Nicotine Gum*) 2 mg PO Q2H PRN PRN Reason: CRAVING Last Admin: 01/21/19 03:12 Dose: 2 mg Ondansetron HCl (Zofran Inj*) 4 mg IV Q4H PRN PRN Reason: NAUSEA/VOMITING Pantoprazole Sodium (Protonix Tab*) 40 mg PO DAILY [facility] Last Admin: 01/20/19 09:15 Dose: 40 mg Polyethylene Glycol/Electrolytes (Miralax*) 17 gm PO BID [facility] Last Admin: 01/20/19 21:56 Dose: Not Given Pregabalin (Lyrica Cap(*)) 75 mg PO TID [facility] Last Admin: 01/20/19 21:55 Dose: 75 mg Senna (Senokot Tab*) 1 tab PO BID PRN PRN Reason: CONSTIPATION Last Admin: 01/12/19 08:59 Dose: 1 tab Sodium Biphosphate/Sodium Phosphate (Fleet Enema*) 1 bottle [place] DAILY PRN PRN Reason: CONSTIPATION Last Admin: 01/08/19 13:58 Dose: 1 bottle Trazodone HCl (Desyrel Tab*) 300 mg PO BEDTIME [facility] Last Admin: 01/20/19 21:54 Dose: 300 mg Vital Signs - 8 hr 05/12/19 05/12/19 05/12/19 03:08 03:14 05:51 Temperature 97.9 F Pulse Rate 71 Respiratory 16 20 16 Rate Blood Pressure 101/83 (mmHg) O2 Sat by Pulse 97 Oximetry 01/21/19 06:30 Temperature Pulse Rate Respiratory 16 Rate Blood Pressure (mmHg) O2 Sat by Pulse Oximetry Oxygen Devices in Use Now: None Result Diagrams: 01/20/19 06:44 01/20/19 06:44 Additional Lab and Data: Lab Results 01/03/19 01/03/19 01/03/19 Range/Units 21:09 21:09 21:09 WBC 11.0 H (3.5-10.8) 10^3/uL RBC 4.51 (3.70-4.87) 10^6 /uL Hgb 12.1 (12.0-16.0) g/dL Hct 36 (33-41) % MCV 80 (80-97) fL MCH 27 (27-31) pg MCHC 34 (31-36) g/dL RDW 14 (10.5-15) % Plt Count 533 H (150-450) 10^3/uL MPV 7.9 (7.4-10.4) fL Neut % (Auto) 64.7 % Lymph % (Auto) 21.3 % [place] % (Auto) 12.7 % Eos % (Auto) 0.5 % Baso % (Auto) 0.8 % Absolute Neuts (auto) 7.1 (1.5-7.7) 10^3/ul Absolute Lymphs (auto) 2.3 (1.0-4.8) 10^3/ul Absolute Monos (auto) 1.4 H (0-0.8) 10^3/ul Absolute Eos (auto) 0.1 (0-0.6) 10^3/ul Absolute Basos (auto) 0.1 (0-0.2) 10^3/ul Absolute Nucleated RBC 0 10^3/ul Nucleated RBC % 0 ESR Pending Sodium 136 (135-145) mmol/L Potassium 3.0 L (3.5-5.0) mmol/L Chloride 96 L (101-111) mmol/L Carbon Dioxide 28 (22-32) mmol/L Anion Gap 12 H (2-11) mmol/L BUN 8 (6-24) mg/dL Creatinine 0.78 (0.51-0.95) mg/dL Est GFR ( Amer) 96.2 (>60) Est GFR (Non-Af Amer) 79.5 (>60) BUN/Creatinine Ratio 10.3 (8-20) Glucose 78 (70-100) mg/dL Lactic Acid 0.9 (0.5-2.0) mmol/L Calcium 9.5 (8.6-10.3) mg/dL Total Bilirubin 0.30 (0.2-1.0) mg/dL AST 22 (13-39) U/L ALT 15 (7-52) U/L Alkaline Phosphatase 256 H (34-104) U/L C-Reactive Protein Pending Total Protein 7.5 (6.4-8.9) g/dL Albumin 3.9 (3.2-5.2) g/dL Globulin 3.6 (2-4) g/dL Albumin/Globulin Ratio 1.1 (1-3) TSH 0.79 (0.34-5.60) mcIU/mL Beta HCG, Quant 1.24 mIU/mL Salicylates < 2.50 (<30) mg/dL Acetaminophen < 15 mcg/mL Serum Alcohol < 10 (<10) mg/dL Microbiology and Other Data: Microbiology 01/04/19 00:37 Gram Stain - Final Foot Left 01/04/19 01:24 Skin and Soft Tissue MRSA/MSSA (PCR - Final Foot Left Mrsa Negative S.aureus Positive Assess/Plan/Problems-Billing Assessment: 47 yo F with PMH polysubstance abuse, hepatitis C , anxiety/ depression, with recent history of left leg compartment syndrome after syncope and collapse on 09/18, rhabdo, s/p 4 fasciotomies, and multiple I&Ds now living alone presented back to the ED on 01/04 with SI and was noted to have L foot wound - Patient Problems (1) Osteomyelitis Current Visit: Yes Status: Acute Code(s): M86.9 - OSTEOMYELITIS, UNSPECIFIED SNOMED Code(s): 54805522 Comment: -Concluded Abx regimen per ID -s/p debridement in OR on 01/04/19, 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 -Ceftriaxone/flagyl D/Cd (01/19) per ID and will deferappreciate ID review -Wound cx positive for Providencia, Haemophilus, Prevotella, Peptoniphilus (2) Hypotension Current Visit: Yes Status: Acute Comment: -Resolved -Likely due to combination of poor PO intake and polypharmacy (3) Anxiety and depression Current Visit: No Status: Acute Code(s): F41.9 - ANXIETY DISORDER, UNSPECIFIED; F32.9 - MAJOR DEPRESSIVE DISORDER, SINGLE EPISODE, UNSPECIFIED SNOMED Code(s): 740793868 Comment: With SI that so far resolved Appreciate psychiatry consult-cont Prozac, Trazadone 1:1 obs d/c'd on 01/06/19 (4) Chronic, continuous use of opioids Current Visit: No Status: Acute Code(s): F11.90 - OPIOID USE, UNSPECIFIED, UNCOMPLICATED SNOMED Code(s): 322469864 Comment: Dr. Cabrera adjusted pain meds post op (5) Polysubstance (including opioids) dependence w/o physiol dependence Current Visit: No Status: Acute Code(s): F19.20 - OTHER PSYCHOACTIVE SUBSTANCE DEPENDENCE, UNCOMPLICATED SNOMED Code(s): 98360339 Comment: UDS positive for cocaine, amphetamines, cannabis at admission (6) Peripheral arterial disease Current Visit: Yes Status: Acute Code(s): I73.9 - PERIPHERAL VASCULAR DISEASE, UNSPECIFIED SNOMED Code(s): 599726645 Comment: aterior tibial and dorsalis pedis with very poor flow but not able to be stented s/p L BKA 01/16/19 (7) DVT prophylaxis Current Visit: No Status: Acute Priority: Low Code(s): [id number] - SNOMED Code(s): 898016752 Comment: SCD's Status and Disposition: -Awaiting placement from either [facility] or [place]
[2019-01-21] MEDS: FLUoxetine CAP* 10 MG PO SCH (11:08)
[2019-01-21] MEDS: Cetirizine* 10 MG TAB PO SCH (11:08)
[2019-01-21] MEDS: Fluticasone NASAL SPRAY 50MCG* 16 gm SPRAY BTL BOTH NARES SCH (11:09)
[2019-01-21] MEDS: Pregabalin CAP(*) 25 MG PO SCH ×3 (11:10→20:49)
[2019-01-21] MEDS: Pantoprazole TAB * 40 MG TAB PO SCH (11:12)
[2019-01-21] MEDS: Polyethylene Glycol 3350* 17 GM PACKET PO SCH ×2 (11:40→20:50)
--- NOTE | 2019-01-21 14:37 | PN ---
Progress Note - Progress Note Date of Service: 01/21/19 SOAP: Subjective: Pt seen at bedside. Very sleepy this AM. States pain is tolerable. Denies CP, SOB, N/V, F/C. Vital Signs - Most Recent Temp Pulse Resp BP Pulse Ox 98.4 F 69 18 87/60 97 01/21/19 11:18 01/21/19 11:18 01/21/19 11:18 01/21/19 11:18 01/21/19 11:18 Laboratory Last Values WBC 7.8 10^3/uL (3.5-10.8) 01/20/19 06:44 RBC 4.14 10^6 /uL (3.70-4.87) 01/20/19 06:44 Hgb 10.9 g/dL (12.0-16.0) L 01/20/19 06:44 Hct 33 % (35-47) L 01/20/19 06:44 MCV 79 fL (80-97) L 01/20/19 06:44 MCH 26 pg (27-31) L 01/20/19 06:44 MCHC 33 g/dL (31-36) 01/20/19 06:44 RDW 15 % (10.5-15) 01/20/19 06:44 Plt Count 275 10^3/uL (150-450) 01/20/19 06:44 MPV 8.3 fL (7.4-10.4) 01/20/19 06:44 Neut % (Auto) 49.2 % 01/20/19 06:44 Lymph % (Auto) 34.4 % 01/20/19 06:44 [place] % (Auto) 12.3 % 01/20/19 06:44 Eos % (Auto) 3.1 % 01/20/19 06:44 Baso % (Auto) 1.0 % 01/20/19 06:44 Absolute Neuts (auto) 3.8 10^3/ul (1.5-7.7) 01/20/19 06:44 Absolute Lymphs (auto) 2.7 10^3/ul (1.0-4.8) 01/20/19 06:44 Absolute Monos (auto) 1.0 10^3/ul (0-0.8) H 01/20/19 06:44 Absolute Eos (auto) 0.2 10^3/ul (0-0.6) 01/20/19 06:44 Absolute Basos (auto) 0.1 10^3/ul (0-0.2) 01/20/19 06:44 Absolute Nucleated RBC 0.0 10^3/ul 01/20/19 06:44 Nucleated RBC % 0.1 01/20/19 06:44 ESR > 120 mm/Hr (0-19) H 01/03/19 21:09 INR (Anticoag Therapy) 1.27 (0.82-1.09) H 01/17/19 11:05 APTT 29.0 seconds (26.0-36.3) 01/17/19 11:05 Sodium 138 mmol/L (135-145) 01/20/19 06:44 Potassium 3.6 mmol/L (3.5-5.0) 01/20/19 06:44 Chloride 103 mmol/L (101-111) 01/20/19 06:44 Carbon Dioxide 27 mmol/L (22-32) 01/20/19 06:44 Anion Gap 8 mmol/L (2-11) 01/20/19 06:44 BUN 16 mg/dL (6-24) 01/20/19 06:44 Creatinine 0.66 mg/dL (0.51-0.95) 01/20/19 06:44 Est GFR ( Amer) 116.7 (>60) 01/20/19 06:44 Est GFR (Non-Af Amer) 96.4 (>60) 01/20/19 06:44 BUN/Creatinine Ratio 24.2 (8-20) H 01/20/19 06:44 Glucose 92 mg/dL (70-100) 01/20/19 06:44 POC Glucose (mg/dL) 93 mg/dL (70-100) 01/14/19 07:52 Lactic Acid 1.4 mmol/L (0.5-2.0) 01/08/19 06:03 Calcium 9.3 mg/dL (8.6-10.3) 01/20/19 06:44 Phosphorus 5.6 mg/dL (2.5-5.0) H 01/20/19 06:44 Magnesium 1.9 mg/dL (1.9-2.7) 01/20/19 06:44 Total Bilirubin 0.20 mg/dL (0.2-1.0) 01/20/19 06:44 AST 13 U/L (13-39) 01/20/19 06:44 ALT 6 U/L (7-52) L 01/20/19 06:44 Alkaline Phosphatase 83 U/L (34-104) 01/20/19 06:44 C-Reactive Protein 1.58 mg/L (<8.01) 01/15/19 05:18 Total Protein 6.6 g/dL (6.4-8.9) 01/20/19 06:44 Albumin 3.6 g/dL (3.2-5.2) 01/20/19 06:44 Globulin 3.0 g/dL (2-4) 01/20/19 06:44 Albumin/Globulin Ratio 1.2 (1-3) 01/20/19 06:44 TSH 0.79 mcIU/mL (0.34-5.60) 01/03/19 21:09 Beta HCG, Quant 1.24 mIU/mL 01/03/19 21:09 Urine Color Yellow 01/16/19 18:09 Urine Appearance Clear 01/16/19 18:09 Urine pH 6.0 (5-9) 01/16/19 18:09 Ur Specific [place] 1.012 (1.010-1.030) 01/16/19 18:09 Urine Protein Negative (Negative) 01/16/19 18:09 Urine Ketones Negative (Negative) 01/16/19 18:09 Urine Blood 1+ (Negative) A 01/16/19 18:09 Urine Nitrate Negative (Negative) 01/16/19 18:09 Urine Bilirubin Negative (Negative) 01/16/19 18:09 Urine Urobilinogen Negative (Negative) 01/16/19 18:09 Ur Leukocyte Esterase Negative (Negative) 01/16/19 18:09 Urine WBC (Auto) Trace(0-5/hpf) (Absent) 01/16/19 18:09 Urine RBC (Auto) 1+(3-5/hpf) (Absent) A 01/16/19 18:09 Ur Squamous Epith Cells Present (Absent) A 01/16/19 18:09 Urine Bacteria Absent (Absent) 01/16/19 18:09 Urine Glucose Negative (Negative) 01/16/19 18:09 Salicylates < 2.50 mg/dL (<30) 01/03/19 21:09 Urine Opiates Screen None detected (None Detect) 01/04/19 01:45 Acetaminophen < 15 mcg/mL 01/03/19 21:09 Ur Barbiturates Screen None detected (None Detect) 01/04/19 01:45 Ur Phencyclidine Scrn None detected (None Detect) 01/04/19 01:45 Ur Amphetamines Screen Presumptive positive (None Detect) A 01/04/19 01:45 U Benzodiazepines Scrn None detected (None Detect) 01/04/19 01:45 Urine Cocaine Screen Presumptive positive (None Detect) A 01/04/19 01:45 U Cannabinoids Screen Presumptive positive (None Detect) A 01/04/19 01:45 Serum Alcohol < 10 mg/dL (<10) 01/03/19 21:09 Objective: Awake, NAD, Splint C/D/I, Calves soft and nontender Assessment: 48 yo female s/p Left BKA Plan: NWB LLE Pain control per Dr. Deborah Antony for DVT prophylaxis Hospitalist co-managing Awaiting rehab placement
[2019-01-21] MEDS: traZODone TAB* 100 MG PO SCH (20:48)
[2019-01-21] MEDS: Montelukast Sodium TAB* 10 MG PO SCH (20:49)
[2019-01-21] MEDS: LORazepam TAB(*) 0.5 MG PO PRN (21:57)
[2019-01-22] MEDS: Nicotine GUM* 2 MG PO PRN ×3 (00:34→13:05)
[2019-01-22] MEDS: HYDROmorphone TAB* 2 MG PO PRN ×4 (00:34→21:55)
[2019-01-22] MEDS: Methadone TAB* 5 MG PO SCH (05:37)
[2019-01-22] MEDS: Heparin VIAL(*) 5000 UNITS/ML VIAL (FIVE THOUSAND) SUBCUT SCH ×3 (05:39→21:52)
[2019-01-22] MEDS: Polyethylene Glycol 3350* 17 GM PACKET PO SCH ×2 (07:58→21:49)
[2019-01-22] MEDS: LORazepam TAB(*) 0.5 MG PO PRN (07:59)
[2019-01-22] MEDS: Pregabalin CAP(*) 25 MG PO SCH ×3 (07:59→21:50)
[2019-01-22] MEDS: Pantoprazole TAB * 40 MG TAB PO SCH (07:59)
[2019-01-22] MEDS: FLUoxetine CAP* 10 MG PO SCH (07:59)
[2019-01-22] MEDS: Cetirizine* 10 MG TAB PO SCH (07:59)
[2019-01-22] MEDS: Fluticasone NASAL SPRAY 50MCG* 16 gm SPRAY BTL BOTH NARES SCH (08:00)
--- NOTE | 2019-01-22 15:02 | PN ---
Subjective Date of Service: 01/22/19 Interval History: Pt seen and examined. Meds and labs reviewed. No O/N issues CC: N/A ROS: Denied MADSEN/dizziness, F/C, N/V, CP, SOB, increased cough, sputum production , abd pain, diarrhea, constipation, dysuria, myalgias, arthralgias, throat pain , and new skin lesions. The rest of the 14 point ROS are unremarkable. PHYSICAL EXAM: GEN APPEARANCE: Awake, not in acute distress HEENT: NC/AT, PERRLA, moist oral mucosa, (-) throat erythema NECK: Soft, supple, (-) cervical LAD, (-)JVD HEART: S1S2 WNL, RRR, No MRG CHEST: CTA, BL, GAE, No W/R/R ABD: Soft, ND/NT, NABS 4x Q EXT: No C/C/LLE stump wrapped in DEEPTHI bandages, cdi SKIN: Warm to touch PSYCH: No active psychosis, hallucinations, depression, SI/HI Objective Active Medications: Acetaminophen (Tylenol Tab*) 650 mg PO Q4H PRN PRN Reason: FEVER/PAIN Last Admin: 01/17/19 22:50 Dose: 650 mg Al Hydrox/Mg Hydrox/Simethicone (Maalox Plus*) 30 ml PO Q6H PRN PRN Reason: INDIGESTION Last Admin: 01/09/19 20:08 Dose: 30 ml Albuterol (Ventolin Hfa Inhaler*) 2 puff INH Q4H PRN PRN Reason: SOB/WHEEZING Last Admin: 01/10/19 12:13 Dose: 2 puff Cetirizine HCl (Zyrtec*) 10 mg PO DAILY [facility] Last Admin: 01/22/19 07:59 Dose: 10 mg Docusate Sodium (Colace Cap*) 100 mg PO BID PRN PRN Reason: CONSTIPATION Last Admin: 01/12/19 08:59 Dose: 100 mg Fluoxetine HCl (Prozac Cap*) 30 mg PO DAILY [facility] Last Admin: 01/22/19 07:59 Dose: 30 mg Fluticasone Propionate (Flonase Nasal [place] 50mcg*) 2 spray BOTH NARES DAILY [facility] Last Admin: 01/22/19 08:00 Dose: 2 spray Heparin Sodium (Porcine) (Heparin Vial(*)) 5,000 units SUBCUT Q12HR [facility] Hydromorphone HCl (Dilaudid Tab*) 4 mg PO Q4H PRN PRN Reason: PAIN - SEVERE Last Admin: 01/19/19 06:35 Dose: 4 mg Hydromorphone HCl (Dilaudid Tab*) 6 mg PO Q4H PRN PRN Reason: PAIN - BREAKTHROUGH Last Admin: 01/22/19 10:58 Dose: 6 mg Lorazepam (Ativan Tab(*)) 0.5 mg PO BID PRN PRN Reason: ANXIETY Last Admin: 01/22/19 07:59 Dose: 0.5 mg Montelukast Sodium (Singulair Tab*) 10 mg PO BEDTIME [facility] Last Admin: 01/21/19 20:49 Dose: 10 mg Nicotine Polacrilex (Nicotine Gum*) 2 mg PO Q2H PRN PRN Reason: CRAVING Last Admin: 01/22/19 13:05 Dose: 2 mg Ondansetron HCl (Zofran Inj*) 4 mg IV Q4H PRN PRN Reason: NAUSEA/VOMITING Pantoprazole Sodium (Protonix Tab*) 40 mg PO DAILY [facility] Last Admin: 01/22/19 07:59 Dose: 40 mg Polyethylene Glycol/Electrolytes (Miralax*) 17 gm PO BID [facility] Last Admin: 01/22/19 07:58 Dose: 17 gm Pregabalin (Lyrica Cap(*)) 75 mg PO TID [facility] Last Admin: 01/22/19 14:25 Dose: 75 mg Senna (Senokot Tab*) 1 tab PO BID PRN PRN Reason: CONSTIPATION Last Admin: 01/12/19 08:59 Dose: 1 tab Sodium Biphosphate/Sodium Phosphate (Fleet Enema*) 1 bottle [place] DAILY PRN PRN Reason: CONSTIPATION Last Admin: 01/08/19 13:58 Dose: 1 bottle Trazodone HCl (Desyrel Tab*) 300 mg PO BEDTIME [facility] Last Admin: 01/21/19 20:48 Dose: 300 mg Vital Signs - 8 hr 01/22/19 01/22/19 01/22/19 07:59 08:00 10:58 Temperature 98.6 F Pulse Rate Respiratory 16 16 16 Rate Blood Pressure 101/59 (mmHg) O2 Sat by Pulse Oximetry 01/22/19 01/22/19 14:25 14:58 Temperature 97.8 F Pulse Rate 84 Respiratory 16 16 Rate Blood Pressure 96/56 (mmHg) O2 Sat by Pulse 98 Oximetry Oxygen Devices in Use Now: None Result Diagrams: 01/20/19 06:44 01/20/19 06:44 Additional Lab and Data: Lab Results 01/03/19 01/03/19 01/03/19 Range/Units 21:09 21:09 21:09 WBC 11.0 H (3.5-10.8) 10^3/uL RBC 4.51 (3.70-4.87) 10^6 /uL Hgb 12.1 (12.0-16.0) g/dL Hct 36 (33-41) % MCV 80 (80-97) fL MCH 27 (27-31) pg MCHC 34 (31-36) g/dL RDW 14 (10.5-15) % Plt Count 533 H (150-450) 10^3/uL MPV 7.9 (7.4-10.4) fL Neut % (Auto) 64.7 % Lymph % (Auto) 21.3 % [place] % (Auto) 12.7 % Eos % (Auto) 0.5 % Baso % (Auto) 0.8 % Absolute Neuts (auto) 7.1 (1.5-7.7) 10^3/ul Absolute Lymphs (auto) 2.3 (1.0-4.8) 10^3/ul Absolute Monos (auto) 1.4 H (0-0.8) 10^3/ul Absolute Eos (auto) 0.1 (0-0.6) 10^3/ul Absolute Basos (auto) 0.1 (0-0.2) 10^3/ul Absolute Nucleated RBC 0 10^3/ul Nucleated RBC % 0 ESR Pending Sodium 136 (135-145) mmol/L Potassium 3.0 L (3.5-5.0) mmol/L Chloride 96 L (101-111) mmol/L Carbon Dioxide 28 (22-32) mmol/L Anion Gap 12 H (2-11) mmol/L BUN 8 (6-24) mg/dL Creatinine 0.78 (0.51-0.95) mg/dL Est GFR ( Amer) 96.2 (>60) Est GFR (Non-Af Amer) 79.5 (>60) BUN/Creatinine Ratio 10.3 (8-20) Glucose 78 (70-100) mg/dL Lactic Acid 0.9 (0.5-2.0) mmol/L Calcium 9.5 (8.6-10.3) mg/dL Total Bilirubin 0.30 (0.2-1.0) mg/dL AST 22 (13-39) U/L ALT 15 (7-52) U/L Alkaline Phosphatase 256 H (34-104) U/L C-Reactive Protein Pending Total Protein 7.5 (6.4-8.9) g/dL Albumin 3.9 (3.2-5.2) g/dL Globulin 3.6 (2-4) g/dL Albumin/Globulin Ratio 1.1 (1-3) TSH 0.79 (0.34-5.60) mcIU/mL Beta HCG, Quant 1.24 mIU/mL Salicylates < 2.50 (<30) mg/dL Acetaminophen < 15 mcg/mL Serum Alcohol < 10 (<10) mg/dL Microbiology and Other Data: Microbiology 01/04/19 00:37 Gram Stain - Final Foot Left 01/04/19 01:24 Skin and Soft Tissue MRSA/MSSA (PCR - Final Foot Left Mrsa Negative S.aureus Positive Assess/Plan/Problems-Billing Assessment: 47 yo F with H polysubstance abuse, hepatitis C , anxiety/ depression, with recent history of left leg compartment syndrome after syncope and collapse on 09/18, rhabdo, s/p 4 fasciotomies, and multiple I&Ds now living alone presented back to the ED on 01/04 with SI and was noted to have L foot wound - Patient Problems (1) Osteomyelitis Current Visit: Yes Status: Acute Code(s): M86.9 - OSTEOMYELITIS, UNSPECIFIED SNOMED Code(s): 91291042 Comment: -Concluded Abx regimen per ID -s/p debridement in OR on 01/04/19, 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 -Ceftriaxone/flagyl D/Cd (01/19) per ID and will deferappreciate ID review -Wound cx positive for Providencia, Haemophilus, Prevotella, Peptoniphilus (2) Hypotension Current Visit: Yes Status: Acute Comment: -Resolved -Likely due to combination of poor PO intake and polypharmacy (3) Anxiety and depression Current Visit: No Status: Acute Code(s): F41.9 - ANXIETY DISORDER, UNSPECIFIED; F32.9 - MAJOR DEPRESSIVE DISORDER, SINGLE EPISODE, UNSPECIFIED SNOMED Code(s): 557219698 Comment: With SI that so far resolved Appreciate psychiatry consult-cont Prozac, Trazadone 1:1 obs d/c'd on 01/06/19 (4) Chronic, continuous use of opioids Current Visit: No Status: Acute Code(s): F11.90 - OPIOID USE, UNSPECIFIED, UNCOMPLICATED SNOMED Code(s): 079412191 Comment: Dr. Cabrera adjusted pain meds post op (5) Polysubstance (including opioids) dependence w/o physiol dependence Current Visit: No Status: Acute Code(s): F19.20 - OTHER PSYCHOACTIVE SUBSTANCE DEPENDENCE, UNCOMPLICATED SNOMED Code(s): 16727476 Comment: UDS positive for cocaine, amphetamines, cannabis at admission (6) Peripheral arterial disease Current Visit: Yes Status: Acute Code(s): I73.9 - PERIPHERAL VASCULAR DISEASE, UNSPECIFIED SNOMED Code(s): 561663868 Comment: aterior tibial and dorsalis pedis with very poor flow but not able to be stented s/p L BKA 01/16/19 (7) DVT prophylaxis Current Visit: No Status: Acute Priority: Low Code(s): CCY0409 - SNOMED Code(s): 425799688 Comment: SCD's Status and Disposition: -[facility] -Possible D/C in AM?
--- NOTE | 2019-01-22 15:09 | PN ---
Progress Note - Progress Note Date of Service: 01/22/19 SOAP: Subjective: []Pt seen at bedside. She feels well today with good pain control. Denies fever , chills, CP, SOB, dizziness, nausea. Objective: []Awake, NAD, LLE: Splint C/D/I, laying with leg elevated in bed R calf supple and nontender without erythema, edema or palpable cords Assessment: 48 yo female s/p Left BKA Plan: NWB LLE, elevate on pillows while in bed Pain control per Dr. Cabrera Heparin for DVT prophylaxis Hospitalist co-managing Awaiting rehab placement, ready for DC from ortho standpoint Vital Signs Temp 97.8 F 01/22/19 14:58 Pulse 84 01/22/19 14:58 Resp 16 01/22/19 14:58 BP 96/56 01/22/19 14:58 Pulse Ox 98 01/22/19 14:58 Intake & Output 01/21/19 01/22/19 01/22/19 18:59 06:59 18:59 Intake Total 540 910 800 Output Total 1300 450 600 Balance -760 460 200 Intake: Oral 540 910 800 Output: Urine 1300 450 600 Other: # Bowel Movements 0 Laboratory Last Values WBC 7.8 10^3/uL (3.5-10.8) 01/20/19 06:44 RBC 4.14 10^6 /uL (3.70-4.87) 01/20/19 06:44 Hgb 10.9 g/dL (12.0-16.0) L 01/20/19 06:44 Hct 33 % (35-47) L 01/20/19 06:44 MCV 79 fL (80-97) L 01/20/19 06:44 MCH 26 pg (27-31) L 01/20/19 06:44 MCHC 33 g/dL (31-36) 01/20/19 06:44 RDW 15 % (10.5-15) 01/20/19 06:44 Plt Count 275 10^3/uL (150-450) 01/20/19 06:44 MPV 8.3 fL (7.4-10.4) 01/20/19 06:44 Neut % (Auto) 49.2 % 01/20/19 06:44 Lymph % (Auto) 34.4 % 01/20/19 06:44 [place] % (Auto) 12.3 % 01/20/19 06:44 Eos % (Auto) 3.1 % 01/20/19 06:44 Baso % (Auto) 1.0 % 01/20/19 06:44 Absolute Neuts (auto) 3.8 10^3/ul (1.5-7.7) 01/20/19 06:44 Absolute Lymphs (auto) 2.7 10^3/ul (1.0-4.8) 01/20/19 06:44 Absolute Monos (auto) 1.0 10^3/ul (0-0.8) H 01/20/19 06:44 Absolute Eos (auto) 0.2 10^3/ul (0-0.6) 01/20/19 06:44 Absolute Basos (auto) 0.1 10^3/ul (0-0.2) 01/20/19 06:44 Absolute Nucleated RBC 0.0 10^3/ul 01/20/19 06:44 Nucleated RBC % 0.1 01/20/19 06:44 ESR > 120 mm/Hr (0-19) H 01/03/19 21:09 INR (Anticoag Therapy) 1.27 (0.82-1.09) H 01/17/19 11:05 APTT 29.0 seconds (26.0-36.3) 01/17/19 11:05 Sodium 138 mmol/L (135-145) 01/20/19 06:44 Potassium 3.6 mmol/L (3.5-5.0) 01/20/19 06:44 Chloride 103 mmol/L (101-111) 01/20/19 06:44 Carbon Dioxide 27 mmol/L (22-32) 01/20/19 06:44 Anion Gap 8 mmol/L (2-11) 01/20/19 06:44 BUN 16 mg/dL (6-24) 01/20/19 06:44 Creatinine 0.66 mg/dL (0.51-0.95) 01/20/19 06:44 Est GFR ( Amer) 116.7 (>60) 01/20/19 06:44 Est GFR (Non-Af Amer) 96.4 (>60) 01/20/19 06:44 BUN/Creatinine Ratio 24.2 (8-20) H 01/20/19 06:44 Glucose 92 mg/dL (70-100) 01/20/19 06:44 POC Glucose (mg/dL) 93 mg/dL (70-100) 01/14/19 07:52 Lactic Acid 1.4 mmol/L (0.5-2.0) 01/08/19 06:03 Calcium 9.3 mg/dL (8.6-10.3) 01/20/19 06:44 Phosphorus 5.6 mg/dL (2.5-5.0) H 01/20/19 06:44 Magnesium 1.9 mg/dL (1.9-2.7) 01/20/19 06:44 Total Bilirubin 0.20 mg/dL (0.2-1.0) 01/20/19 06:44 AST 13 U/L (13-39) 01/20/19 06:44 ALT 6 U/L (7-52) L 01/20/19 06:44 Alkaline Phosphatase 83 U/L (34-104) 01/20/19 06:44 C-Reactive Protein 1.58 mg/L (<8.01) 01/15/19 05:18 Total Protein 6.6 g/dL (6.4-8.9) 01/20/19 06:44 Albumin 3.6 g/dL (3.2-5.2) 01/20/19 06:44 Globulin 3.0 g/dL (2-4) 01/20/19 06:44 Albumin/Globulin Ratio 1.2 (1-3) 01/20/19 06:44 TSH 0.79 mcIU/mL (0.34-5.60) 01/03/19 21:09 Beta HCG, Quant 1.24 mIU/mL 01/03/19 21:09 Urine Color Yellow 01/16/19 18:09 Urine Appearance Clear 01/16/19 18:09 Urine pH 6.0 (5-9) 01/16/19 18:09 Ur Specific [place] 1.012 (1.010-1.030) 01/16/19 18:09 Urine Protein Negative (Negative) 01/16/19 18:09 Urine Ketones Negative (Negative) 01/16/19 18:09 Urine Blood 1+ (Negative) A 01/16/19 18:09 Urine Nitrate Negative (Negative) 01/16/19 18:09 Urine Bilirubin Negative (Negative) 01/16/19 18:09 Urine Urobilinogen Negative (Negative) 01/16/19 18:09 Ur Leukocyte Esterase Negative (Negative) 01/16/19 18:09 Urine WBC (Auto) Trace(0-5/hpf) (Absent) 01/16/19 18:09 Urine RBC (Auto) 1+(3-5/hpf) (Absent) A 01/16/19 18:09 Ur Squamous Epith Cells Present (Absent) A 01/16/19 18:09 Urine Bacteria Absent (Absent) 01/16/19 18:09 Urine Glucose Negative (Negative) 01/16/19 18:09 Salicylates < 2.50 mg/dL (<30) 01/03/19 21:09 Urine Opiates Screen None detected (None Detect) 01/04/19 01:45 Acetaminophen < 15 mcg/mL 01/03/19 21:09 Ur Barbiturates Screen None detected (None Detect) 01/04/19 01:45 Ur Phencyclidine Scrn None detected (None Detect) 01/04/19 01:45 Ur Amphetamines Screen Presumptive positive (None Detect) A 01/04/19 01:45 U Benzodiazepines Scrn None detected (None Detect) 01/04/19 01:45 Urine Cocaine Screen Presumptive positive (None Detect) A 01/04/19 01:45 U Cannabinoids Screen Presumptive positive (None Detect) A 01/04/19 01:45 Serum Alcohol < 10 mg/dL (<10) 01/03/19 21:09
[2019-01-22] MEDS: Montelukast Sodium TAB* 10 MG PO SCH (21:51)
[2019-01-22] MEDS: traZODone TAB* 100 MG PO SCH (21:51)
[2019-01-23] MEDS: Cetirizine* 10 MG TAB PO SCH (08:08)
[2019-01-23] MEDS: Pantoprazole TAB * 40 MG TAB PO SCH (08:08)
[2019-01-23] MEDS: Polyethylene Glycol 3350* 17 GM PACKET PO SCH ×2 (08:08→20:56)
[2019-01-23] MEDS: Docusate CAP* 100 MG PO PRN (08:08)
[2019-01-23] MEDS: HYDROmorphone TAB* 2 MG PO PRN ×2 (08:09→15:34)
[2019-01-23] MEDS: Pregabalin CAP(*) 25 MG PO SCH ×3 (08:09→22:30)
[2019-01-23] MEDS: FLUoxetine CAP* 10 MG PO SCH (08:09)
[2019-01-23] MEDS: Heparin VIAL(*) 5000 UNITS/ML VIAL (FIVE THOUSAND) SUBCUT SCH ×2 (08:10→20:56)
[2019-01-23] MEDS: Fluticasone NASAL SPRAY 50MCG* 16 gm SPRAY BTL BOTH NARES SCH (08:10)
--- NOTE | 2019-01-23 08:54 | PN ---
Progress Note - Progress Note Date of Service: 01/23/19 SOAP: Subjective: resting comfortably in bed, pain well controlled Objective: Vital Signs Temp Pulse Resp BP Pulse Ox 97.9 F 67 14 93/57 96 01/23/19 07:17 01/23/19 07:17 01/23/19 08:09 01/23/19 07:17 01/23/19 07:17 Laboratory Last Values WBC 7.8 10^3/uL (3.5-10.8) 01/20/19 06:44 RBC 4.14 10^6 /uL (3.70-4.87) 01/20/19 06:44 Hgb 10.9 g/dL (12.0-16.0) L 01/20/19 06:44 Hct 33 % (35-47) L 01/20/19 06:44 MCV 79 fL (80-97) L 01/20/19 06:44 MCH 26 pg (27-31) L 01/20/19 06:44 MCHC 33 g/dL (31-36) 01/20/19 06:44 RDW 15 % (10.5-15) 01/20/19 06:44 Plt Count 275 10^3/uL (150-450) 01/20/19 06:44 MPV 8.3 fL (7.4-10.4) 01/20/19 06:44 Neut % (Auto) 49.2 % 01/20/19 06:44 Lymph % (Auto) 34.4 % 01/20/19 06:44 [place] % (Auto) 12.3 % 01/20/19 06:44 Eos % (Auto) 3.1 % 01/20/19 06:44 Baso % (Auto) 1.0 % 01/20/19 06:44 Absolute Neuts (auto) 3.8 10^3/ul (1.5-7.7) 01/20/19 06:44 Absolute Lymphs (auto) 2.7 10^3/ul (1.0-4.8) 01/20/19 06:44 Absolute Monos (auto) 1.0 10^3/ul (0-0.8) H 01/20/19 06:44 Absolute Eos (auto) 0.2 10^3/ul (0-0.6) 01/20/19 06:44 Absolute Basos (auto) 0.1 10^3/ul (0-0.2) 01/20/19 06:44 Absolute Nucleated RBC 0.0 10^3/ul 01/20/19 06:44 Nucleated RBC % 0.1 01/20/19 06:44 ESR > 120 mm/Hr (0-19) H 01/03/19 21:09 INR (Anticoag Therapy) 1.27 (0.82-1.09) H 01/17/19 11:05 APTT 29.0 seconds (26.0-36.3) 01/17/19 11:05 Sodium 138 mmol/L (135-145) 01/20/19 06:44 Potassium 3.6 mmol/L (3.5-5.0) 01/20/19 06:44 Chloride 103 mmol/L (101-111) 01/20/19 06:44 Carbon Dioxide 27 mmol/L (22-32) 01/20/19 06:44 Anion Gap 8 mmol/L (2-11) 01/20/19 06:44 BUN 16 mg/dL (6-24) 01/20/19 06:44 Creatinine 0.66 mg/dL (0.51-0.95) 01/20/19 06:44 Est GFR ( Amer) 116.7 (>60) 01/20/19 06:44 Est GFR (Non-Af Amer) 96.4 (>60) 01/20/19 06:44 BUN/Creatinine Ratio 24.2 (8-20) H 01/20/19 06:44 Glucose 92 mg/dL (70-100) 01/20/19 06:44 POC Glucose (mg/dL) 93 mg/dL (70-100) 01/14/19 07:52 Lactic Acid 1.4 mmol/L (0.5-2.0) 01/08/19 06:03 Calcium 9.3 mg/dL (8.6-10.3) 01/20/19 06:44 Phosphorus 5.6 mg/dL (2.5-5.0) H 01/20/19 06:44 Magnesium 1.9 mg/dL (1.9-2.7) 01/20/19 06:44 Total Bilirubin 0.20 mg/dL (0.2-1.0) 01/20/19 06:44 AST 13 U/L (13-39) 01/20/19 06:44 ALT 6 U/L (7-52) L 01/20/19 06:44 Alkaline Phosphatase 83 U/L (34-104) 01/20/19 06:44 C-Reactive Protein 1.58 mg/L (<8.01) 01/15/19 05:18 Total Protein 6.6 g/dL (6.4-8.9) 01/20/19 06:44 Albumin 3.6 g/dL (3.2-5.2) 01/20/19 06:44 Globulin 3.0 g/dL (2-4) 01/20/19 06:44 Albumin/Globulin Ratio 1.2 (1-3) 01/20/19 06:44 TSH 0.79 mcIU/mL (0.34-5.60) 01/03/19 21:09 Beta HCG, Quant 1.24 mIU/mL 01/03/19 21:09 Urine Color Yellow 01/16/19 18:09 Urine Appearance Clear 01/16/19 18:09 Urine pH 6.0 (5-9) 01/16/19 18:09 Ur Specific [place] 1.012 (1.010-1.030) 01/16/19 18:09 Urine Protein Negative (Negative) 01/16/19 18:09 Urine Ketones Negative (Negative) 01/16/19 18:09 Urine Blood 1+ (Negative) A 01/16/19 18:09 Urine Nitrate Negative (Negative) 01/16/19 18:09 Urine Bilirubin Negative (Negative) 01/16/19 18:09 Urine Urobilinogen Negative (Negative) 01/16/19 18:09 Ur Leukocyte Esterase Negative (Negative) 01/16/19 18:09 Urine WBC (Auto) Trace(0-5/hpf) (Absent) 01/16/19 18:09 Urine RBC (Auto) 1+(3-5/hpf) (Absent) A 01/16/19 18:09 Ur Squamous Epith Cells Present (Absent) A 01/16/19 18:09 Urine Bacteria Absent (Absent) 01/16/19 18:09 Urine Glucose Negative (Negative) 01/16/19 18:09 Salicylates < 2.50 mg/dL (<30) 01/03/19 21:09 Urine Opiates Screen None detected (None Detect) 01/04/19 01:45 Acetaminophen < 15 mcg/mL 01/03/19 21:09 Ur Barbiturates Screen None detected (None Detect) 01/04/19 01:45 Ur Phencyclidine Scrn None detected (None Detect) 01/04/19 01:45 Ur Amphetamines Screen Presumptive positive (None Detect) A 01/04/19 01:45 U Benzodiazepines Scrn None detected (None Detect) 01/04/19 01:45 Urine Cocaine Screen Presumptive positive (None Detect) A 01/04/19 01:45 U Cannabinoids Screen Presumptive positive (None Detect) A 01/04/19 01:45 Serum Alcohol < 10 mg/dL (<10) 01/03/19 21:09 incision: c/d/i Assessment: s/p left BKA Plan: 1) continue PT/OT- NWB LLE 2) pain medication per Dr. Cabrera 3) hospitalist co-managing 4) awaiting rehab placement
[2019-01-23] MEDS ORDERED: Heparin VIAL(*) 5000 UNITS/ML VIAL (FIVE THOUSAND) SUBCUT SCH (09:00)
--- NOTE | 2019-01-23 13:09 | PN ---
Subjective Date of Service: 01/23/19 Interval History: Pt seen and examined. Meds and labs reviewed. CC: N/A ROS: Denied MADSEN/dizziness, F/C, N/V, CP, SOB, increased cough, sputum production , abd pain, diarrhea, constipation, dysuria, myalgias, arthralgias, throat pain , and new skin lesions. The rest of the 14 point ROS are unremarkable. PHYSICAL EXAM: GEN APPEARANCE: Awake, not in acute distress HEENT: NC/AT, PERRLA, moist oral mucosa, (-) throat erythema NECK: Soft, supple, (-) cervical LAD, (-)JVD HEART: S1S2 WNL, RRR, No MRG CHEST: CTA, BL, GAE, No W/R/R ABD: Soft, ND/NT, NABS 4x Q EXT: No C/C/E SKIN: Warm to touch PSYCH: No active psychosis, hallucinations, depression, SI/HI Objective Active Medications: Acetaminophen (Tylenol Tab*) 650 mg PO Q4H PRN PRN Reason: FEVER/PAIN Last Admin: 01/17/19 22:50 Dose: 650 mg Al Hydrox/Mg Hydrox/Simethicone (Maalox Plus*) 30 ml PO Q6H PRN PRN Reason: INDIGESTION Last Admin: 01/09/19 20:08 Dose: 30 ml Albuterol (Ventolin Hfa Inhaler*) 2 puff INH Q4H PRN PRN Reason: SOB/WHEEZING Last Admin: 01/10/19 12:13 Dose: 2 puff Cetirizine HCl (Zyrtec*) 10 mg PO DAILY [facility] Last Admin: 01/23/19 08:08 Dose: 10 mg Docusate Sodium (Colace Cap*) 100 mg PO BID PRN PRN Reason: CONSTIPATION Last Admin: 01/23/19 08:08 Dose: 100 mg Fluoxetine HCl (Prozac Cap*) 30 mg PO DAILY [facility] Last Admin: 01/23/19 08:09 Dose: 30 mg Fluticasone Propionate (Flonase Nasal [place] 50mcg*) 2 spray BOTH NARES DAILY [facility] Last Admin: 01/23/19 08:10 Dose: 2 spray Heparin Sodium (Porcine) (Heparin Vial(*)) 5,000 units SUBCUT Q12HR [facility] Last Admin: 01/23/19 08:10 Dose: 5,000 units Hydromorphone HCl (Dilaudid Tab*) 4 mg PO Q4H PRN PRN Reason: PAIN - SEVERE Last Admin: 01/19/19 06:35 Dose: 4 mg Hydromorphone HCl (Dilaudid Tab*) 6 mg PO Q4H PRN PRN Reason: PAIN - BREAKTHROUGH Last Admin: 01/23/19 08:09 Dose: 6 mg Lorazepam (Ativan Tab(*)) 0.5 mg PO BID PRN PRN Reason: ANXIETY Last Admin: 01/22/19 07:59 Dose: 0.5 mg Montelukast Sodium (Singulair Tab*) 10 mg PO BEDTIME [facility] Last Admin: 01/22/19 21:51 Dose: 10 mg Nicotine Polacrilex (Nicotine Gum*) 2 mg PO Q2H PRN PRN Reason: CRAVING Last Admin: 01/22/19 13:05 Dose: 2 mg Ondansetron HCl (Zofran Inj*) 4 mg IV Q4H PRN PRN Reason: NAUSEA/VOMITING Pantoprazole Sodium (Protonix Tab*) 40 mg PO DAILY [facility] Last Admin: 01/23/19 08:08 Dose: 40 mg Polyethylene Glycol/Electrolytes (Miralax*) 17 gm PO BID COUNT [facility] Last Admin: 01/23/19 08:08 Dose: 17 gm Pregabalin (Lyrica Cap(*)) 75 mg PO TID [facility] Last Admin: 01/23/19 08:09 Dose: 75 mg Senna (Senokot Tab*) 1 tab PO BID PRN PRN Reason: CONSTIPATION Last Admin: 01/12/19 08:59 Dose: 1 tab Sodium Biphosphate/Sodium Phosphate (Fleet Enema*) 1 bottle DC DAILY PRN PRN Reason: CONSTIPATION Last Admin: 01/08/19 13:58 Dose: 1 bottle Trazodone HCl (Desyrel Tab*) 300 mg PO BEDTIME [facility] Last Admin: 01/22/19 21:51 Dose: 300 mg Vital Signs - 8 hr 01/23/19 01/23/19 01/23/19 07:17 08:00 08:09 Temperature 97.9 F Pulse Rate 67 Respiratory 14 14 14 Rate Blood Pressure 93/57 (mmHg) O2 Sat by Pulse 96 96 Oximetry Oxygen Devices in Use Now: None Result Diagrams: 01/20/19 06:44 01/20/19 06:44 Additional Lab and Data: Lab Results 01/03/19 01/03/19 01/03/19 Range/Units 21:09 21:09 21:09 WBC 11.0 H (3.5-10.8) 10^3/uL RBC 4.51 (3.70-4.87) 10^6 /uL Hgb 12.1 (12.0-16.0) g/dL Hct 36 (33-41) % MCV 80 (80-97) fL MCH 27 (27-31) pg MCHC 34 (31-36) g/dL RDW 14 (10.5-15) % Plt Count 533 H (150-450) 10^3/uL MPV 7.9 (7.4-10.4) fL Neut % (Auto) 64.7 % Lymph % (Auto) 21.3 % [place] % (Auto) 12.7 % Eos % (Auto) 0.5 % Baso % (Auto) 0.8 % Absolute Neuts (auto) 7.1 (1.5-7.7) 10^3/ul Absolute Lymphs (auto) 2.3 (1.0-4.8) 10^3/ul Absolute Monos (auto) 1.4 H (0-0.8) 10^3/ul Absolute Eos (auto) 0.1 (0-0.6) 10^3/ul Absolute Basos (auto) 0.1 (0-0.2) 10^3/ul Absolute Nucleated RBC 0 10^3/ul Nucleated RBC % 0 ESR Pending Sodium 136 (135-145) mmol/L Potassium 3.0 L (3.5-5.0) mmol/L Chloride 96 L (101-111) mmol/L Carbon Dioxide 28 (22-32) mmol/L Anion Gap 12 H (2-11) mmol/L BUN 8 (6-24) mg/dL Creatinine 0.78 (0.51-0.95) mg/dL Est GFR ( Amer) 96.2 (>60) Est GFR (Non-Af Amer) 79.5 (>60) BUN/Creatinine Ratio 10.3 (8-20) Glucose 78 (70-100) mg/dL Lactic Acid 0.9 (0.5-2.0) mmol/L Calcium 9.5 (8.6-10.3) mg/dL Total Bilirubin 0.30 (0.2-1.0) mg/dL AST 22 (13-39) U/L ALT 15 (7-52) U/L Alkaline Phosphatase 256 H (34-104) U/L C-Reactive Protein Pending Total Protein 7.5 (6.4-8.9) g/dL Albumin 3.9 (3.2-5.2) g/dL Globulin 3.6 (2-4) g/dL Albumin/Globulin Ratio 1.1 (1-3) TSH 0.79 (0.34-5.60) mcIU/mL Beta HCG, Quant 1.24 mIU/mL Salicylates < 2.50 (<30) mg/dL Acetaminophen < 15 mcg/mL Serum Alcohol < 10 (<10) mg/dL Microbiology and Other Data: Microbiology 01/04/19 00:37 Gram Stain - Final Foot Left 01/04/19 01:24 Skin and Soft Tissue MRSA/MSSA (PCR - Final Foot Left Mrsa Negative S.aureus Positive Assess/Plan/Problems-Billing Assessment: 47 yo F with PMH polysubstance abuse, hepatitis C , anxiety/ depression, with recent history of left leg compartment syndrome after syncope and collapse on 09/18, rhabdo, s/p 4 fasciotomies, and multiple I&Ds now living alone presented back to the ED on 01/04 with SI and was noted to have L foot wound - Patient Problems (1) Osteomyelitis Current Visit: Yes Status: Acute Code(s): M86.9 - OSTEOMYELITIS, UNSPECIFIED SNOMED Code(s): 61148720 Comment: -Concluded Abx regimen per ID -s/p debridement in OR on 01/04/19, 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 -Ceftriaxone/flagyl D/Cd (01/19) per ID and will deferappreciate ID review -Wound cx positive for Providencia, Haemophilus, Prevotella, Peptoniphilus (2) Hypotension Current Visit: Yes Status: Acute Comment: -Resolved -Likely due to combination of poor PO intake and polypharmacy (3) Anxiety and depression Current Visit: No Status: Acute Code(s): F41.9 - ANXIETY DISORDER, UNSPECIFIED; F32.9 - MAJOR DEPRESSIVE DISORDER, SINGLE EPISODE, UNSPECIFIED SNOMED Code(s): 999774303 Comment: With SI that so far resolved Appreciate psychiatry consult-cont Prozac, Trazadone 1:1 obs d/c'd on 01/06/19 (4) Chronic, continuous use of opioids Current Visit: No Status: Acute Code(s): F11.90 - OPIOID USE, UNSPECIFIED, UNCOMPLICATED SNOMED Code(s): 740924087 Comment: Dr. Cabrera adjusted pain meds post op (5) Polysubstance (including opioids) dependence w/o physiol dependence Current Visit: No Status: Acute Code(s): F19.20 - OTHER PSYCHOACTIVE SUBSTANCE DEPENDENCE, UNCOMPLICATED SNOMED Code(s): 74550150 Comment: UDS positive for cocaine, amphetamines, cannabis at admission (6) Peripheral arterial disease Current Visit: Yes Status: Acute Code(s): I73.9 - PERIPHERAL VASCULAR DISEASE, UNSPECIFIED SNOMED Code(s): 826357160 Comment: aterior tibial and dorsalis pedis with very poor flow but not able to be stented s/p L BKA 01/16/19 (7) DVT prophylaxis Current Visit: No Status: Acute Priority: Low Code(s): [id number] - SNOMED Code(s): 224603609 Comment: SCD's Status and Disposition: -Both Lindsay Benito and Riccardo declined rehab referral; case coordinators now working on [facility]; if this fails, possible PMRU referral
[2019-01-23] MEDS ORDERED: HYDROmorphone TAB* 4 MG PO PRN (15:42)
[2019-01-23] MEDS ORDERED: LORazepam TAB(*) 0.5 MG PO PRN (15:42)
--- NOTE | 2019-01-23 17:10 | PN ---
Progress Note - Progress Note Date of Service: 01/23/19 Note: INPATIENT PAIN-PROGRESS Yuki visited. She is now a week post-op and I think we can lower her Dilaudid to 4 mg from 6 mg Q4 PRN. I spoke with her and she is in agreement with this. She may also be ready for a stump bag checker but defer to orthopedics. Current Medications Acetaminophen (Tylenol Tab*) 650 mg PO Q4H PRN PRN Reason: FEVER/PAIN Last Admin: 01/17/19 22:50 Dose: 650 mg Al Hydrox/Mg Hydrox/Simethicone (Maalox Plus*) 30 ml PO Q6H PRN PRN Reason: INDIGESTION Last Admin: 01/09/19 20:08 Dose: 30 ml Albuterol (Ventolin Hfa Inhaler*) 2 puff INH Q4H PRN PRN Reason: SOB/WHEEZING Last Admin: 01/10/19 12:13 Dose: 2 puff Cetirizine HCl (Zyrtec*) 10 mg PO DAILY [facility] Last Admin: 01/23/19 08:08 Dose: 10 mg Docusate Sodium (Colace Cap*) 100 mg PO BID PRN PRN Reason: CONSTIPATION Last Admin: 01/23/19 08:08 Dose: 100 mg Fluoxetine HCl (Prozac Cap*) 30 mg PO DAILY [facility] Last Admin: 01/23/19 08:09 Dose: 30 mg Fluticasone Propionate (Flonase Nasal [place] 50mcg*) 2 spray BOTH NARES DAILY [facility] Last Admin: 01/23/19 08:10 Dose: 2 spray Heparin Sodium (Porcine) (Heparin Vial(*)) 5,000 units SUBCUT Q12HR [facility] Last Admin: 01/23/19 08:10 Dose: 5,000 units Hydromorphone HCl (Dilaudid Tab*) 6 mg PO Q4H PRN PRN Reason: PAIN - BREAKTHROUGH Last Admin: 01/23/19 15:34 Dose: 6 mg Lorazepam (Ativan Tab(*)) 0.5 mg PO BID PRN PRN Reason: ANXIETY Montelukast Sodium (Singulair Tab*) 10 mg PO BEDTIME [facility] Last Admin: 01/22/19 21:51 Dose: 10 mg Nicotine Polacrilex (Nicotine Gum*) 2 mg PO Q2H PRN PRN Reason: CRAVING Last Admin: 01/22/19 13:05 Dose: 2 mg Ondansetron HCl (Zofran Inj*) 4 mg IV Q4H PRN PRN Reason: NAUSEA/VOMITING Pantoprazole Sodium (Protonix Tab*) 40 mg PO DAILY [facility] Last Admin: 01/23/19 08:08 Dose: 40 mg Polyethylene Glycol/Electrolytes (Miralax*) 17 gm PO BID [facility] Last Admin: 01/23/19 08:08 Dose: 17 gm Pregabalin (Lyrica Cap(*)) 75 mg PO TID [facility] Last Admin: 01/23/19 14:08 Dose: 75 mg Senna (Senokot Tab*) 1 tab PO BID PRN PRN Reason: CONSTIPATION Last Admin: 01/12/19 08:59 Dose: 1 tab Sodium Biphosphate/Sodium Phosphate (Fleet Enema*) 1 bottle [place] DAILY PRN PRN Reason: CONSTIPATION Last Admin: 01/08/19 13:58 Dose: 1 bottle Trazodone HCl (Desyrel Tab*) 300 mg PO BEDTIME [facility] Last Admin: 01/22/19 21:51 Dose: 300 mg Vital Signs Temp Pulse Resp BP Pulse Ox 98.4 F 72 16 96/57 96 01/23/19 11:25 01/23/19 11:25 01/23/19 15:34 01/23/19 11:25 01/23/19 11:25 EXAM: LUNGS: Clear HEART: reg rhythm ABDOMEN: Soft, +BS EXTREMITIES: LLE stump in cast ASSESSMENT: 1. Left BKA 2. History of Polysubstance Abuse PLAN: Lower dilaudid to 4 mg Q 4 PRN. D/C Dilaudid 6 mg. COntinue Methadone 15 mg TID. I will follow
[2019-01-23] MEDS: HYDROmorphone TAB* 4 MG PO PRN (20:57)
[2019-01-23] MEDS: Montelukast Sodium TAB* 10 MG PO SCH (20:57)
[2019-01-23] MEDS: traZODone TAB* 100 MG PO SCH (20:57)
--- NOTE | 2019-01-24 09:12 | PN ---
Subjective Date of Service: 01/24/19 Interval History: Pt is feeling ok currently. She states her pain is manageable on the current pain regimen. She denies any issues with urination, bowels. She has been getting around ok with help. Objective Active Medications: Acetaminophen (Tylenol Tab*) 650 mg PO Q4H PRN PRN Reason: FEVER/PAIN Last Admin: 01/17/19 22:50 Dose: 650 mg Al Hydrox/Mg Hydrox/Simethicone (Maalox Plus*) 30 ml PO Q6H PRN PRN Reason: INDIGESTION Last Admin: 01/09/19 20:08 Dose: 30 ml Albuterol (Ventolin Hfa Inhaler*) 2 puff INH Q4H PRN PRN Reason: SOB/WHEEZING Last Admin: 01/10/19 12:13 Dose: 2 puff Cetirizine HCl (Zyrtec*) 10 mg PO DAILY [facility] Last Admin: 01/23/19 08:08 Dose: 10 mg Docusate Sodium (Colace Cap*) 100 mg PO BID PRN PRN Reason: CONSTIPATION Last Admin: 01/23/19 08:08 Dose: 100 mg Fluoxetine HCl (Prozac Cap*) 30 mg PO DAILY [facility] Last Admin: 01/23/19 08:09 Dose: 30 mg Fluticasone Propionate (Flonase Nasal [place] 50mcg*) 2 spray BOTH NARES DAILY [facility] Last Admin: 01/23/19 08:10 Dose: 2 spray Heparin Sodium (Porcine) (Heparin Vial(*)) 5,000 units SUBCUT Q12HR [facility] Last Admin: 01/23/19 20:56 Dose: 5,000 units Hydromorphone HCl (Dilaudid Tab*) 4 mg PO Q4H PRN PRN Reason: PAIN - SEVERE Last Admin: 01/23/19 20:57 Dose: 4 mg Lorazepam (Ativan Tab(*)) 0.5 mg PO BID PRN PRN Reason: ANXIETY Montelukast Sodium (Singulair Tab*) 10 mg PO BEDTIME [facility] Last Admin: 01/23/19 20:57 Dose: 10 mg Nicotine Polacrilex (Nicotine Gum*) 2 mg PO Q2H PRN PRN Reason: CRAVING Last Admin: 01/22/19 13:05 Dose: 2 mg Ondansetron HCl (Zofran Inj*) 4 mg IV Q4H PRN PRN Reason: NAUSEA/VOMITING Pantoprazole Sodium (Protonix Tab*) 40 mg PO DAILY [facility] Last Admin: 01/23/19 08:08 Dose: 40 mg Polyethylene Glycol/Electrolytes (Miralax*) 17 gm PO BID [facility] Last Admin: 01/23/19 20:56 Dose: Not Given Pregabalin (Lyrica Cap(*)) 75 mg PO TID [facility] Last Admin: 01/23/19 22:30 Dose: 75 mg Senna (Senokot Tab*) 1 tab PO BID PRN PRN Reason: CONSTIPATION Last Admin: 01/12/19 08:59 Dose: 1 tab Sodium Biphosphate/Sodium Phosphate (Fleet Enema*) 1 bottle [place] DAILY PRN PRN Reason: CONSTIPATION Last Admin: 01/08/19 13:58 Dose: 1 bottle Trazodone HCl (Desyrel Tab*) 300 mg PO BEDTIME [facility] Last Admin: 01/23/19 20:57 Dose: 300 mg Vital Signs - 8 hr 01/24/19 01/24/19 01/24/19 03:20 03:31 07:48 Temperature 98.7 F 97.8 F Pulse Rate 64 78 Respiratory 16 16 Rate Blood Pressure 96/56 95/48 (mmHg) O2 Sat by Pulse 93 98 Oximetry Oxygen Devices in Use Now: None Appearance: Middle aged female lying in bed, NAD Eyes: No Scleral Icterus Ears/Nose/Mouth/Throat: Mucous Membranes Moist Cardiovascular: NL Sounds; No Murmurs; No JVD, RRR, No Edema Abdominal: NL Sounds; No Tenderness; No Distention Extremities: No Clubbing, Cyanosis, - - L LE in surgical dressing Skin: No Nodules or Sclerosis Neurological: Alert and Oriented x 3 Result Diagrams: 01/20/19 06:44 01/20/19 06:44 Additional Lab and Data: Lab Results 01/03/19 01/03/19 01/03/19 Range/Units 21:09 21:09 21:09 WBC 11.0 H (3.5-10.8) 10^3/uL RBC 4.51 (3.70-4.87) 10^6 /uL Hgb 12.1 (12.0-16.0) g/dL Hct 36 (33-41) % MCV 80 (80-97) fL MCH 27 (27-31) pg MCHC 34 (31-36) g/dL RDW 14 (10.5-15) % Plt Count 533 H (150-450) 10^3/uL MPV 7.9 (7.4-10.4) fL Neut % (Auto) 64.7 % Lymph % (Auto) 21.3 % [place] % (Auto) 12.7 % Eos % (Auto) 0.5 % Baso % (Auto) 0.8 % Absolute Neuts (auto) 7.1 (1.5-7.7) 10^3/ul Absolute Lymphs (auto) 2.3 (1.0-4.8) 10^3/ul Absolute Monos (auto) 1.4 H (0-0.8) 10^3/ul Absolute Eos (auto) 0.1 (0-0.6) 10^3/ul Absolute Basos (auto) 0.1 (0-0.2) 10^3/ul Absolute Nucleated RBC 0 10^3/ul Nucleated RBC % 0 ESR Pending Sodium 136 (135-145) mmol/L Potassium 3.0 L (3.5-5.0) mmol/L Chloride 96 L (101-111) mmol/L Carbon Dioxide 28 (22-32) mmol/L Anion Gap 12 H (2-11) mmol/L BUN 8 (6-24) mg/dL Creatinine 0.78 (0.51-0.95) mg/dL Est GFR ( Amer) 96.2 (>60) Est GFR (Non-Af Amer) 79.5 (>60) BUN/Creatinine Ratio 10.3 (8-20) Glucose 78 (70-100) mg/dL Lactic Acid 0.9 (0.5-2.0) mmol/L Calcium 9.5 (8.6-10.3) mg/dL Total Bilirubin 0.30 (0.2-1.0) mg/dL AST 22 (13-39) U/L ALT 15 (7-52) U/L Alkaline Phosphatase 256 H (34-104) U/L C-Reactive Protein Pending Total Protein 7.5 (6.4-8.9) g/dL Albumin 3.9 (3.2-5.2) g/dL Globulin 3.6 (2-4) g/dL Albumin/Globulin Ratio 1.1 (1-3) TSH 0.79 (0.34-5.60) mcIU/mL Beta HCG, Quant 1.24 mIU/mL Salicylates < 2.50 (<30) mg/dL Acetaminophen < 15 mcg/mL Serum Alcohol < 10 (<10) mg/dL Microbiology and Other Data: Microbiology 01/04/19 00:37 Gram Stain - Final Foot Left 01/04/19 01:24 Skin and Soft Tissue MRSA/MSSA (PCR - Final Foot Left Mrsa Negative S.aureus Positive Assess/Plan/Problems-Billing Ms Trujillo is a 47 yo F with PMHx polysubstance abuse, hepatitis C , anxiety/ depression, with recent history of left leg compartment syndrome after syncope and collapse on 09/18/18, s/p 4 fasciotomies, and multiple I&Ds now living alone presented back to the ED on 01/04 with SI and was noted to have L foot wound. - Patient Problems (1) Osteomyelitis Current Visit: Yes Status: Acute Code(s): M86.9 - OSTEOMYELITIS, UNSPECIFIED SNOMED Code(s): 12763362 Comment: The patient underwent initially debridement of the foot wound on and subsequently L BKA on 01/16/19. Off Abx as pt felt to have clear margins. She is looking for STR as she needs help getting around. (2) Peripheral arterial disease Current Visit: Yes Status: Acute Code(s): I73.9 - PERIPHERAL VASCULAR DISEASE, UNSPECIFIED SNOMED Code(s): 518496148 Comment: s/p L BKA, monitor for wound healing. (3) Chronic, continuous use of opioids Current Visit: Yes Status: Acute Code(s): F11.90 - OPIOID USE, UNSPECIFIED, UNCOMPLICATED SNOMED Code(s): 023285805 Comment: Pt's pain control is acceptable currently. Appreciate input from Dr. Cabrera. Continue methadone 15mg TID and dilaudid 4mg po q6hr prn. (4) Polysubstance (including opioids) dependence w/o physiol dependence Current Visit: Yes Status: Acute Code(s): F19.20 - OTHER PSYCHOACTIVE SUBSTANCE DEPENDENCE, UNCOMPLICATED SNOMED Code(s): 30582568 Comment: Pt felt to benefit from substance abuse treatment but pt refused early this admission. (5) Anxiety and depression Current Visit: Yes Status: Acute Code(s): F41.9 - ANXIETY DISORDER, UNSPECIFIED; F32.9 - MAJOR DEPRESSIVE DISORDER, SINGLE EPISODE, UNSPECIFIED SNOMED Code(s): 854820845 Comment: Pt taken off 1:1 on 01/06/19. No longer suicidal. Continue prozac and trazodone. (6) Tobacco use disorder Current Visit: Yes Status: Acute Code(s): F17.200 - NICOTINE DEPENDENCE, UNSPECIFIED, UNCOMPLICATED SNOMED Code(s): 057124388 Comment: Encourage smoking cessation. Continue nicotine replacement therapy. (7) DVT prophylaxis Current Visit: Yes Status: Acute Code(s): OIR3070 - SNOMED Code(s): 320054693 Comment: SCD's and SQ heparin Status and Disposition: .
[2019-01-24] MEDS: Nicotine GUM* 2 MG PO PRN (10:08)
[2019-01-24] MEDS: Polyethylene Glycol 3350* 17 GM PACKET PO SCH ×2 (10:08→20:17)
[2019-01-24] MEDS: Pregabalin CAP(*) 25 MG PO SCH ×3 (10:09→20:23)
[2019-01-24] MEDS: FLUoxetine CAP* 10 MG PO SCH (10:10)
[2019-01-24] MEDS: Cetirizine* 10 MG TAB PO SCH (10:10)
[2019-01-24] MEDS: HYDROmorphone TAB* 4 MG PO PRN ×4 (10:10→22:59)
[2019-01-24] MEDS: Fluticasone NASAL SPRAY 50MCG* 16 gm SPRAY BTL BOTH NARES SCH (10:11)
[2019-01-24] MEDS: Heparin VIAL(*) 5000 UNITS/ML VIAL (FIVE THOUSAND) SUBCUT SCH ×2 (10:11→20:25)
[2019-01-24] MEDS: Pantoprazole TAB * 40 MG TAB PO SCH (10:12)
--- NOTE | 2019-01-24 15:50 | PN ---
Progress Note - Progress Note Date of Service: 01/24/19 SOAP: Subjective: []Pt seen today, she feels well, pain of LLE tolerable. Reports her splint has become loose and is slipping down when standing. Denies fever, chills, CP, SOB. Objective: []General: Awake, NAD, LLE: Splint C/D/I, is quite loose so new splint was placed. Incision CDI, no erythema, no skin breakdown. Incision dressed with xeroform and 4x4s, New well padded posterior slab placed with knee in extension. Assessment: 48 yo female s/p Left BKA Plan: NWB LLE, elevate on pillows while in bed Pain control per Dr. Deborah Webb for DVT prophylaxis Hospitalist co-managing Awaiting rehab placement, has turned down placement opportunity. Ready for DC from ortho standpoint Vital Signs Temp 97.9 F 01/24/19 11:24 Pulse 76 01/24/19 11:24 Resp 18 01/24/19 14:23 BP 90/52 01/24/19 11:24 Pulse Ox 98 01/24/19 11:24 Intake & Output 01/23/19 01/24/19 01/24/19 18:59 06:59 18:59 Intake Total 660 1200 460 Output Total 700 100 900 Balance -40 1100 -440 Intake: Oral 660 1200 460 Output: Urine 700 100 900 Other: # Bowel Movements 0 Laboratory Last Values WBC 7.8 10^3/uL (3.5-10.8) 01/20/19 06:44 RBC 4.14 10^6 /uL (3.70-4.87) 01/20/19 06:44 Hgb 10.9 g/dL (12.0-16.0) L 01/20/19 06:44 Hct 33 % (35-47) L 01/20/19 06:44 MCV 79 fL (80-97) L 01/20/19 06:44 MCH 26 pg (27-31) L 01/20/19 06:44 MCHC 33 g/dL (31-36) 01/20/19 06:44 RDW 15 % (10.5-15) 01/20/19 06:44 Plt Count 275 10^3/uL (150-450) 01/20/19 06:44 MPV 8.3 fL (7.4-10.4) 01/20/19 06:44 Neut % (Auto) 49.2 % 01/20/19 06:44 Lymph % (Auto) 34.4 % 01/20/19 06:44 [place] % (Auto) 12.3 % 01/20/19 06:44 Eos % (Auto) 3.1 % 01/20/19 06:44 Baso % (Auto) 1.0 % 01/20/19 06:44 Absolute Neuts (auto) 3.8 10^3/ul (1.5-7.7) 01/20/19 06:44 Absolute Lymphs (auto) 2.7 10^3/ul (1.0-4.8) 01/20/19 06:44 Absolute Monos (auto) 1.0 10^3/ul (0-0.8) H 01/20/19 06:44 Absolute Eos (auto) 0.2 10^3/ul (0-0.6) 01/20/19 06:44 Absolute Basos (auto) 0.1 10^3/ul (0-0.2) 01/20/19 06:44 Absolute Nucleated RBC 0.0 10^3/ul 01/20/19 06:44 Nucleated RBC % 0.1 01/20/19 06:44 ESR > 120 mm/Hr (0-19) H 01/03/19 21:09 INR (Anticoag Therapy) 1.27 (0.82-1.09) H 01/17/19 11:05 APTT 29.0 seconds (26.0-36.3) 01/17/19 11:05 Sodium 138 mmol/L (135-145) 01/20/19 06:44 Potassium 3.6 mmol/L (3.5-5.0) 01/20/19 06:44 Chloride 103 mmol/L (101-111) 01/20/19 06:44 Carbon Dioxide 27 mmol/L (22-32) 01/20/19 06:44 Anion Gap 8 mmol/L (2-11) 01/20/19 06:44 BUN 16 mg/dL (6-24) 01/20/19 06:44 Creatinine 0.66 mg/dL (0.51-0.95) 01/20/19 06:44 Est GFR ( Amer) 116.7 (>60) 01/20/19 06:44 Est GFR (Non-Af Amer) 96.4 (>60) 01/20/19 06:44 BUN/Creatinine Ratio 24.2 (8-20) H 01/20/19 06:44 Glucose 92 mg/dL (70-100) 01/20/19 06:44 POC Glucose (mg/dL) 93 mg/dL (70-100) 01/14/19 07:52 Lactic Acid 1.4 mmol/L (0.5-2.0) 01/08/19 06:03 Calcium 9.3 mg/dL (8.6-10.3) 01/20/19 06:44 Phosphorus 5.6 mg/dL (2.5-5.0) H 01/20/19 06:44 Magnesium 1.9 mg/dL (1.9-2.7) 01/20/19 06:44 Total Bilirubin 0.20 mg/dL (0.2-1.0) 01/20/19 06:44 AST 13 U/L (13-39) 01/20/19 06:44 ALT 6 U/L (7-52) L 01/20/19 06:44 Alkaline Phosphatase 83 U/L (34-104) 01/20/19 06:44 C-Reactive Protein 1.58 mg/L (<8.01) 01/15/19 05:18 Total Protein 6.6 g/dL (6.4-8.9) 01/20/19 06:44 Albumin 3.6 g/dL (3.2-5.2) 01/20/19 06:44 Globulin 3.0 g/dL (2-4) 01/20/19 06:44 Albumin/Globulin Ratio 1.2 (1-3) 01/20/19 06:44 TSH 0.79 mcIU/mL (0.34-5.60) 01/03/19 21:09 Beta HCG, Quant 1.24 mIU/mL 01/03/19 21:09 Urine Color Yellow 01/16/19 18:09 Urine Appearance Clear 01/16/19 18:09 Urine pH 6.0 (5-9) 01/16/19 18:09 Ur Specific [place] 1.012 (1.010-1.030) 01/16/19 18:09 Urine Protein Negative (Negative) 01/16/19 18:09 Urine Ketones Negative (Negative) 01/16/19 18:09 Urine Blood 1+ (Negative) A 01/16/19 18:09 Urine Nitrate Negative (Negative) 01/16/19 18:09 Urine Bilirubin Negative (Negative) 01/16/19 18:09 Urine Urobilinogen Negative (Negative) 01/16/19 18:09 Ur Leukocyte Esterase Negative (Negative) 01/16/19 18:09 Urine WBC (Auto) Trace(0-5/hpf) (Absent) 01/16/19 18:09 Urine RBC (Auto) 1+(3-5/hpf) (Absent) A 01/16/19 18:09 Ur Squamous Epith Cells Present (Absent) A 01/16/19 18:09 Urine Bacteria Absent (Absent) 01/16/19 18:09 Urine Glucose Negative (Negative) 01/16/19 18:09 Salicylates < 2.50 mg/dL (<30) 01/03/19 21:09 Urine Opiates Screen None detected (None Detect) 01/04/19 01:45 Acetaminophen < 15 mcg/mL 01/03/19 21:09 Ur Barbiturates Screen None detected (None Detect) 01/04/19 01:45 Ur Phencyclidine Scrn None detected (None Detect) 01/04/19 01:45 Ur Amphetamines Screen Presumptive positive (None Detect) A 01/04/19 01:45 U Benzodiazepines Scrn None detected (None Detect) 01/04/19 01:45 Urine Cocaine Screen Presumptive positive (None Detect) A 01/04/19 01:45 U Cannabinoids Screen Presumptive positive (None Detect) A 01/04/19 01:45 Serum Alcohol < 10 mg/dL (<10) 01/03/19 21:09
[2019-01-24] MEDS ORDERED: Analgesic BALM* 114 GM TOPICAL PRN (16:39)
[2019-01-24] MEDS: Montelukast Sodium TAB* 10 MG PO SCH (20:23)
[2019-01-24] MEDS: traZODone TAB* 100 MG PO SCH (22:59)
[2019-01-25] MEDS: HYDROmorphone TAB* 4 MG PO PRN ×3 (03:12→14:10)
[2019-01-25 06:23] LABS: Hematocrit 35 % (35-47); Hemoglobin 11.9 g/dL (12.0-16.0); Mean Corpuscular HGB Conc 34 g/dL (31-36); Mean Corpuscular Hemoglobin 27 pg (27-31); Mean Corpuscular Volume 79 fL (80-97); Platelet Count 354 10^3/uL (150-450); Red Blood Count 4.46 10^6 /uL (3.70-4.87); Red Cell Distribution Width 15 % (10.5-15); White Blood Count 6.8 10^3/uL (3.5-10.8)
[2019-01-25 06:41] LABS: BUN/Creatinine Ratio 34.9 (8-20); Calcium 9.5 mg/dL (8.6-10.3); EGFR African American 123.1 (>60); EGFR Non-African American 101.7 (>60)
[2019-01-25] MEDS: Fluticasone NASAL SPRAY 50MCG* 16 gm SPRAY BTL BOTH NARES SCH (08:07)
[2019-01-25] MEDS: Polyethylene Glycol 3350* 17 GM PACKET PO SCH (08:07)
[2019-01-25] MEDS: Heparin VIAL(*) 5000 UNITS/ML VIAL (FIVE THOUSAND) SUBCUT SCH (08:08)
[2019-01-25] MEDS: FLUoxetine CAP* 10 MG PO SCH (08:08)
[2019-01-25] MEDS: Pregabalin CAP(*) 25 MG PO SCH ×2 (08:08→14:09)
[2019-01-25] MEDS: Pantoprazole TAB * 40 MG TAB PO SCH (08:08)
[2019-01-25] MEDS: Cetirizine* 10 MG TAB PO SCH (08:09)
[2019-01-25 11:24] VITALS: BP 100/74
--- NOTE | 2019-01-25 21:54 | DS ---
DISCHARGE SUMMARY: DATE OF ADMISSION: 01/04/19 DATE OF DISCHARGE: 01/25/19 PRIMARY CARE PROVIDER: To be established. The patient's previous primary care provider is no longer in practice. PRINCIPAL DIAGNOSES: 1. Osteomyelitis involving the left foot, status post left below knee amputation. 2. Suicidal ideation/depression/anxiety - improved. SECONDARY DIAGNOSES: 1. Posttraumatic stress disorder. 2. History of hepatitis C. 3. Polysubstance abuse. 4. Asthma. 5. History of compartment syndrome in September 2018, status post fasciotomy with subsequent debridement of the lower extremity and requiring wound VAC. DISCHARGE MEDICATIONS: 1. Tylenol 650 mg p.o. q.4 hours p.r.n. pain. 2. Maalox 30 mL p.o. q.6 hours p.r.n. indigestion. 3. Albuterol 2 puffs inhaled q.4 hours p.r.n. shortness of breath. 4. Cetirizine 10 mg p.o. daily. 5. Colace 100 mg p.o. b.i.d. p.r.n. constipation. 6. Prozac 30 mg p.o. daily. 7. Flonase 2 squirts to both nostrils daily. 8. Heparin 5000 units subcutaneous q.12 hours. 9. Dilaudid 4 mg p.o. q.4 hours p.r.n. pain. 10. Ativan 0.5 mg p.o. b.i.d. p.r.n. anxiety. 11. Singulair 10 mg p.o. q.h.s. 12. [place] apply topically q.6 hours p.r.n. pain. 13. Nicotine gum 2 mg p.o. q.2 hours p.r.n. craving. 14. Protonix 40 mg p.o. daily. 15. Lyrica 75 mg p.o. t.i.d. 16. MiraLAX 17 g p.o. b.i.d. 17. Senna 1 tab p.o. b.i.d. p.r.n. pain. 18. Fleet Enema 1 bottle HI daily p.r.n. constipation. 19. Trazodone 300 mg p.o. q.h.s. HOSPITAL COURSE: Ms. Trujillo is a 48-year-old female who presented to the emergency room on 01/04/19 with complaints of suicidal ideation and left foot pain. The patient approximately 2 weeks prior to admission developed blisters on the bottom of her foot that immediately got infected. She saw Dr. Appiah, who started her on Keflex. It had not gotten any better. She presented to the emergency room due to feelings of despair related to issues with her foot. In the ER, the patient was found to have left lower extremity cellulitis with an ulcerated lesion. Initially, the wound was debrided; however, on 01/16/19, the patient underwent left BKA due to concerns of osteomyelitis. The patient was given several days to contemplate this decision given her history of depression. The patient agreed and underwent the procedure. She has been doing fairly well post amputation; however, she still requires physical therapy for her mobility. None of the subacute rehab facilities in [facility] have accepted the patient for short-term rehab. [facility] also did not feel that the patient had a concrete discharge plan and therefore did not offer the patient a bed. The patient is therefore being discharged to swing bed status today, 01/25/19. This discharge summary will also be used as the admitting H and P for her swing stay. The patient was taken off antibiotic therapy as the margins were felt to be clear of infection. In terms of the depression, initially the patient was requiring a one-to-one sitter. She was seen by Psychiatry. She was started on fluoxetine 30 mg daily. She has had some improvement in her symptoms. The patient's mother is concerned that she continues to be severely depressed and has asked for a repeat Psychiatry evaluation. I will ask the Psychiatry to see the patient tomorrow. We will also continue trazodone 300 mg at bedtime. In terms of pain, the patient is having adequate pain control with Dilaudid 4 mg p.o. q.4 hours. She had been on methadone, however, it appears she has not received this since 01/22/19. I will discuss this with Dr. Cabrera. On the day of discharge to swing, the patient is awake, alert, and oriented, lying in bed, in no acute distress. Her cardiac exam revealed a normal S1, S2 with a regular rate and rhythm. Her lungs are clear. Her abdomen is soft, nontender, nondistended. She is status post left BKA. The amputation stump is in a surgical dressing. FOLLOWUP CONCERNS: The patient is being discharged to swing bed status today, 01/25/19. Activity level is as tolerated. Diet is regular. CONDITION ON DISCHARGE: Stable. TIME SPENT: Thirty five minutes was spent discharging this patient to swing. [id number]/CPS #: [id number] MTDD
== END 2019-01-25 16:38 | disposition swing bed (61) | DRG 475 ==
LOC: ED 19:56 → MED 01-04 01:19 → SSU 01-16 15:00
PROVIDERS: ADMIT Pediatrics; ATTEND Hospitalist
PROC: 0Q9P0ZZ Drainage of Left Metatarsal, Open Approach (ICD-10-PCS; 2019-01-04)
PROC: 0HDNXZZ Extraction of Left Foot Skin, External Approach (ICD-10-PCS; 2019-01-07)
PROC: 0Y6J0Z1 Detachment at Left Lower Leg, High, Open Approach (ICD-10-PCS; principal; 2019-01-16 10:30)
DX: M86.172 Other acute osteomyelitis, left ankle and foot (principal); R45.851 Suicidal ideations; F11.20 Opioid dependence, uncomplicated; F14.20 Cocaine dependence, uncomplicated; F15.20 Other stimulant dependence, uncomplicated; L03.116 Cellulitis of left lower limb; M84.475A Pathological fracture, left foot, initial encounter for fracture; F32.9 Major depressive disorder, single episode, unspecified; F41.9 Anxiety disorder, unspecified; F43.10 Post-traumatic stress disorder, unspecified; J45.909 Unspecified asthma, uncomplicated; E05.90 Thyrotoxicosis, unspecified without thyrotoxic crisis or storm; M17.12 Unilateral primary osteoarthritis, left knee; K21.9 Gastro-esophageal reflux disease without esophagitis; G89.29 Other chronic pain; M79.672 Pain in left foot; F90.9 Attention-deficit hyperactivity disorder, unspecified type; F60.89 Other specific personality disorders; F17.210 Nicotine dependence, cigarettes, uncomplicated; R40.2362 Coma scale, best motor response, obeys commands, at arrival to emergency department; R40.2142 Coma scale, eyes open, spontaneous, at arrival to emergency department; R40.2252 Coma scale, best verbal response, oriented, at arrival to emergency department; G62.9 Polyneuropathy, unspecified; M21.372 Foot drop, left foot; B96.3 Hemophilus influenzae [H. influenzae] as the cause of diseases classified elsewhere; B96.89 Other specified bacterial agents as the cause of diseases classified elsewhere; B95.62 Methicillin resistant Staphylococcus aureus infection as the cause of diseases classified elsewhere; I73.9 Peripheral vascular disease, unspecified; E66.3 Overweight; M67.02 Short Achilles tendon (acquired), left ankle; F12.20 Cannabis dependence, uncomplicated; B18.2 Chronic viral hepatitis C; L97.529 Non-pressure chronic ulcer of other part of left foot with unspecified severity; I95.9 Hypotension, unspecified; K59.00 Constipation, unspecified; Z68.26 Body mass index [BMI] 26.0-26.9, adult; Z88.8 Allergy status to other drugs, medicaments and biological substances; Z96.651 Presence of right artificial knee joint; Z91.5 Personal history of self-harm; Z86.14 Personal history of Methicillin resistant Staphylococcus aureus infection; Z72.89 Other problems related to lifestyle; Z80.42 Family history of malignant neoplasm of prostate; Z80.3 Family history of malignant neoplasm of breast
CPT/HCPCS: 36415; 75635; 80048; 80053; 80307; 80320; 80329; 81003; 81015; 81025; 83605; 83735; 84100; 84443; 84702; 85025; 85027; 85610; 85652; 85730; 86140; 87040; 87070; 87073; 87076; 87077; 87086; 87102; 87116; 87185; 87186; 87205; 87206; 87640; 87641; 88307; 88311; 93922; 94640; 99284; A9270-GY; G0480; G8987-GO-CK; G8988-GO-CI; J0690; J0692; J0696; J1100; J1170; J1644; J2001; J2250; J2270; J2405; J2704; J3010; J3370; J3490; Q9967

== ENCOUNTER 2019-01-25 16:07 | Inpatient (IN) | payer MEDICARE, MEDICAID ==
[2019-01-25] MEDS ORDERED: Analgesic BALM* 114 GM TOPICAL PRN (17:45)
[2019-01-25] MEDS ORDERED: Docusate CAP* 100 MG PO PRN (17:46)
[2019-01-25] MEDS ORDERED: Sodium Phosphate ADULT ENEMA* 118 ml bottle PR PRN (17:46)
[2019-01-25] MEDS ORDERED: Nicotine GUM* (NF) 2 MG GUM PO PRN (17:47)
[2019-01-25] MEDS ORDERED: Al Hydrox/Mg Hydrox/Simet LIQ* 30 ML UDC PO PRN (17:47)
[2019-01-25] MEDS ORDERED: Senna TAB PO PRN (17:47)
[2019-01-25] MEDS ORDERED: Albuterol HFA INHALER* 8 gm MDI INH PRN (17:48)
[2019-01-25] MEDS ORDERED: Ondansetron INJ* 2 MG/ML VIAL IV PRN (17:48)
[2019-01-25] MEDS: LORazepam TAB(*) 0.5 MG PO PRN (17:56)
[2019-01-25] MEDS: Acetaminophen TAB* 325 MG PO PRN (17:56)
[2019-01-25] MEDS: HYDROmorphone TAB* 4 MG PO PRN (17:57)
[2019-01-25] MEDS: Polyethylene Glycol 3350* 17 GM PACKET PO SCH ×2 (21:00→21:34)
[2019-01-25] MEDS: Pregabalin CAP(*) 25 MG PO SCH (21:30)
[2019-01-25] MEDS: Heparin VIAL(*) 5000 UNITS/ML VIAL (FIVE THOUSAND) SUBCUT SCH (21:31)
[2019-01-25] MEDS: traZODone TAB* 100 MG PO SCH (21:31)
[2019-01-25] MEDS: Montelukast Sodium TAB* 10 MG PO SCH (21:31)
[2019-01-26] MEDS: Polyethylene Glycol 3350* 17 GM PACKET PO SCH ×2 (08:50→21:43)
[2019-01-26] MEDS: Acetaminophen TAB* 325 MG PO PRN ×4 (08:51→23:32)
[2019-01-26] MEDS: Pantoprazole TAB * 40 MG TAB PO SCH (08:51)
[2019-01-26] MEDS: Fluticasone NASAL SPRAY 50MCG* 16 gm SPRAY BTL BOTH NARES SCH (08:51)
[2019-01-26] MEDS: Pregabalin CAP(*) 25 MG PO SCH ×3 (08:51→21:43)
[2019-01-26] MEDS: Cetirizine* 10 MG TAB PO SCH (08:52)
[2019-01-26] MEDS: HYDROmorphone TAB* 4 MG PO PRN ×4 (08:52→23:32)
[2019-01-26] MEDS: FLUoxetine CAP* 10 MG PO SCH (08:52)
[2019-01-26] MEDS: Heparin VIAL(*) 5000 UNITS/ML VIAL (FIVE THOUSAND) SUBCUT SCH ×2 (08:55→21:45)
[2019-01-26] MEDS: LORazepam TAB(*) 0.5 MG PO PRN (11:32)
[2019-01-26] MEDS: Montelukast Sodium TAB* 10 MG PO SCH (21:44)
[2019-01-26] MEDS: traZODone TAB* 100 MG PO SCH (21:44)
[2019-01-27] MEDS: Acetaminophen TAB* 325 MG PO PRN ×2 (07:20→11:34)
[2019-01-27] MEDS: HYDROmorphone TAB* 4 MG PO PRN ×3 (07:20→20:30)
[2019-01-27] MEDS: FLUoxetine CAP* 10 MG PO SCH (09:40)
[2019-01-27] MEDS: Heparin VIAL(*) 5000 UNITS/ML VIAL (FIVE THOUSAND) SUBCUT SCH ×2 (09:40→20:31)
[2019-01-27] MEDS: Fluticasone NASAL SPRAY 50MCG* 16 gm SPRAY BTL BOTH NARES SCH (09:40)
[2019-01-27] MEDS: Polyethylene Glycol 3350* 17 GM PACKET PO SCH ×2 (09:40→20:31)
[2019-01-27] MEDS: Cetirizine* 10 MG TAB PO SCH (09:41)
[2019-01-27] MEDS: Pregabalin CAP(*) 25 MG PO SCH ×3 (09:41→20:30)
[2019-01-27] MEDS: Pantoprazole TAB * 40 MG TAB PO SCH (09:41)
[2019-01-27] MEDS: Montelukast Sodium TAB* 10 MG PO SCH (20:29)
[2019-01-27] MEDS: traZODone TAB* 100 MG PO SCH (20:29)
[2019-01-27] MEDS: Ondansetron TAB* 4 MG PO PRN (20:51)
[2019-01-28] MEDS: Acetaminophen TAB* 325 MG PO PRN ×3 (03:54→23:12)
[2019-01-28] MEDS: HYDROmorphone TAB* 4 MG PO PRN ×4 (03:55→23:12)
--- NOTE | 2019-01-28 09:24 | PN ---
Progress Note - Progress Note Date of Service: 01/28/19 SOAP: Subjective: []Called yesterday with reports from nursing staff that her cast "fell off" and there was some bloody drainage coming thru dressings on her left leg stump. Instructions given to remove cast completely and reapply soft dressings, no further bleed thru reported. Objective: []No noted strike thron left LE dressings this morning All dressings removed Swelling is coming down Incision is healing well with no active bleeding, no erythema or evidence of infection, lindsey are intact Assessment: []s/p BKA Plan: []New padded dressing with Kerlex and DEEPTHI wrap and tape applied, comfortable Await rehab placement
[2019-01-28] MEDS: Fluticasone NASAL SPRAY 50MCG* 16 gm SPRAY BTL BOTH NARES SCH (09:44)
[2019-01-28] MEDS: Pregabalin CAP(*) 25 MG PO SCH ×4 (09:45→23:16)
[2019-01-28] MEDS: Pantoprazole TAB * 40 MG TAB PO SCH (09:46)
[2019-01-28] MEDS: Cetirizine* 10 MG TAB PO SCH (09:46)
[2019-01-28] MEDS: Polyethylene Glycol 3350* 17 GM PACKET PO SCH ×2 (09:46→22:14)
[2019-01-28] MEDS: Heparin VIAL(*) 5000 UNITS/ML VIAL (FIVE THOUSAND) SUBCUT SCH ×2 (09:47→23:17)
[2019-01-28] MEDS: FLUoxetine CAP* 10 MG PO SCH (09:47)
[2019-01-28] MEDS: LORazepam TAB(*) 0.5 MG PO PRN (18:04)
[2019-01-28] MEDS: traZODone TAB* 100 MG PO SCH ×2 (22:38→23:12)
[2019-01-28] MEDS: Ondansetron TAB* 4 MG PO PRN (23:13)
[2019-01-28] MEDS: Montelukast Sodium TAB* 10 MG PO SCH (23:13)
[2019-01-29] MEDS: Pantoprazole TAB * 40 MG TAB PO SCH (08:46)
[2019-01-29] MEDS: Pregabalin CAP(*) 25 MG PO SCH ×3 (08:46→19:55)
[2019-01-29] MEDS: FLUoxetine CAP* 10 MG PO SCH (08:46)
[2019-01-29] MEDS: Acetaminophen TAB* 325 MG PO PRN ×3 (08:46→19:56)
[2019-01-29] MEDS: HYDROmorphone TAB* 4 MG PO PRN ×3 (08:47→19:57)
[2019-01-29] MEDS: Heparin VIAL(*) 5000 UNITS/ML VIAL (FIVE THOUSAND) SUBCUT SCH ×2 (08:47→19:59)
[2019-01-29] MEDS: Cetirizine* 10 MG TAB PO SCH (08:47)
[2019-01-29] MEDS: Polyethylene Glycol 3350* 17 GM PACKET PO SCH ×2 (08:48→19:59)
[2019-01-29] MEDS: Fluticasone NASAL SPRAY 50MCG* 16 gm SPRAY BTL BOTH NARES SCH (08:55)
[2019-01-29] MEDS ORDERED: Methadone TAB* 10 MG PO ONE (10:54)
[2019-01-29] MEDS ORDERED: Ondansetron TAB* 4 MG PO PRN (10:56)
[2019-01-29] MEDS ORDERED: Prochlorperazine TAB* 10 MG PO PRN (11:51)
[2019-01-29] MEDS: Montelukast Sodium TAB* 10 MG PO SCH (19:57)
[2019-01-29] MEDS: Methadone TAB* 10 MG PO SCH (19:58)
[2019-01-29] MEDS: traZODone TAB* 100 MG PO SCH (19:58)
[2019-01-30] MEDS: Acetaminophen TAB* 325 MG PO PRN ×3 (01:56→19:30)
[2019-01-30] MEDS: HYDROmorphone TAB* 4 MG PO PRN ×4 (01:56→19:29)
[2019-01-30] MEDS: Fluticasone NASAL SPRAY 50MCG* 16 gm SPRAY BTL BOTH NARES SCH (09:17)
[2019-01-30] MEDS: Methadone TAB* 10 MG PO SCH ×2 (09:18→21:12)
[2019-01-30] MEDS: Pantoprazole TAB * 40 MG TAB PO SCH (09:18)
[2019-01-30] MEDS: Pregabalin CAP(*) 25 MG PO SCH ×3 (09:18→21:12)
[2019-01-30] MEDS: Cetirizine* 10 MG TAB PO SCH (09:18)
[2019-01-30] MEDS: FLUoxetine CAP* 10 MG PO SCH (09:18)
[2019-01-30] MEDS: Polyethylene Glycol 3350* 17 GM PACKET PO SCH ×2 (09:19→21:12)
[2019-01-30] MEDS: Heparin VIAL(*) 5000 UNITS/ML VIAL (FIVE THOUSAND) SUBCUT SCH ×2 (09:19→21:12)
--- NOTE | 2019-01-30 14:11 | PN ---
Progress Note - Progress Note Date of Service: 01/30/19 Note: I saw and examined Peyton today. She is now 2 weeks from her below the knee amputation. She reports that she is doing very well. Her pain is much better. She is getting some phantom pains, but does find Lyrica helpful. She has been working on knee range of motion and does not feel like there is any limitation. I examined her incision, and it is clean, dry, and intact. No erythema. No drainage. No evidence of infection. Knee range of motion 0100. I redressed her wound. I provided her with a knee immobilizer to use when sleeping. Cj Appiah MD
[2019-01-30] MEDS: Montelukast Sodium TAB* 10 MG PO SCH (21:12)
[2019-01-30] MEDS: traZODone TAB* 100 MG PO SCH (21:12)
[2019-01-31] MEDS: Pregabalin CAP(*) 25 MG PO SCH ×3 (08:01→21:11)
[2019-01-31] MEDS: Fluticasone NASAL SPRAY 50MCG* 16 gm SPRAY BTL BOTH NARES SCH (08:01)
[2019-01-31] MEDS: Heparin VIAL(*) 5000 UNITS/ML VIAL (FIVE THOUSAND) SUBCUT SCH ×2 (08:02→21:36)
[2019-01-31] MEDS: FLUoxetine CAP* 10 MG PO SCH (08:02)
[2019-01-31] MEDS: Methadone TAB* 10 MG PO SCH ×3 (08:02→21:12)
[2019-01-31] MEDS: Pantoprazole TAB * 40 MG TAB PO SCH (08:02)
[2019-01-31] MEDS: Cetirizine* 10 MG TAB PO SCH (08:02)
[2019-01-31] MEDS: Polyethylene Glycol 3350* 17 GM PACKET PO SCH ×2 (08:03→21:36)
--- NOTE | 2019-01-31 08:07 | PN ---
Subjective Date of Service: 01/31/19 Interval History: HD # 7 on 01/31 48 yo F with PMH PSA admitted with osteo of L foot after complicated rhabdo earlier this year. s/p L BKA, getting PT on swing status, working with PT, declined by PMRU Overnight no events This morning: In very good spirits, pain managable, forward thinking. No complaints. Objective Active Medications: Acetaminophen (Tylenol Tab*) 650 mg PO Q4H PRN PRN Reason: FEVER/PAIN Last Admin: 01/30/19 19:30 Dose: 650 mg Al Hydrox/Mg Hydrox/Simethicone (Maalox Plus*) 30 ml PO Q6H PRN PRN Reason: INDIGESTION Albuterol (Ventolin Hfa Inhaler*) 2 puff INH Q4H PRN PRN Reason: SOB/WHEEZING Cetirizine HCl (Zyrtec*) 10 mg PO DAILY [facility] Last Admin: 01/31/19 08:02 Dose: 10 mg Docusate Sodium (Colace Cap*) 100 mg PO BID PRN PRN Reason: CONSTIPATION Fluoxetine HCl (Prozac Cap*) 30 mg PO DAILY [facility] Last Admin: 01/31/19 08:02 Dose: 30 mg Fluticasone Propionate (Flonase Nasal [place] 50mcg*) 2 spray BOTH NARES DAILY [facility] Last Admin: 01/31/19 08:01 Dose: 2 spray Heparin Sodium (Porcine) (Heparin Vial(*)) 5,000 units SUBCUT Q12H [facility] Last Admin: 01/31/19 08:02 Dose: Not Given Hydromorphone HCl (Dilaudid Tab*) 2 mg PO Q4H PRN PRN Reason: PAIN - SEVERE Last Admin: 01/30/19 19:29 Dose: 2 mg Lorazepam (Ativan Tab(*)) 0.5 mg PO BID PRN PRN Reason: ANXIETY Last Admin: 01/28/19 18:04 Dose: 0.5 mg Methadone HCl (Dolophine Tab*) 10 mg PO TID [facility] Last Admin: 01/31/19 08:02 Dose: 10 mg Montelukast Sodium (Singulair Tab*) 10 mg PO BEDTIME [facility] Last Admin: 01/30/19 21:12 Dose: 10 mg Multi-Ingredient Liniment/Rub (David Ware*) 1 applic TOPICAL Q6H PRN PRN Reason: PAIN Last Admin: 01/26/19 11:54 Dose: 1 applic Nicotine Polacrilex (Nicotine Gum*) 2 mg PO Q2H PRN PRN Reason: CRAVING Last Admin: 01/28/19 09:45 Dose: 2 mg Pantoprazole Sodium (Protonix Tab*) 40 mg PO DAILY [facility] Last Admin: 01/31/19 08:02 Dose: 40 mg Polyethylene Glycol/Electrolytes (Miralax*) 17 gm PO BID [facility] Last Admin: 01/31/19 08:03 Dose: 17 gm Pregabalin (Lyrica Cap(*)) 75 mg PO TID [facility] Last Admin: 01/31/19 08:01 Dose: 75 mg Prochlorperazine (Compazine Tab*) 10 mg PO Q6HR PRN PRN Reason: NAUSEA/VOMITING Senna (Senokot Tab*) 1 tab PO BID PRN PRN Reason: CONSTIPATION Sodium Biphosphate/Sodium Phosphate (Fleet Enema*) 1 bottle SD DAILY PRN PRN Reason: CONSTIPATION Trazodone HCl (Desyrel Tab*) 100 mg PO BEDTIME [facility] Last Admin: 01/30/19 21:12 Dose: 100 mg Vital Signs - 8 hr 01/31/19 01/31/19 01/31/19 00:24 08:01 08:02 Respiratory 18 20 20 Rate Oxygen Devices in Use Now: None Appearance: Pleasant woman in NAD Eyes: No Scleral Icterus Ears/Nose/Mouth/Throat: NL Teeth, Lips, Gums Neck: No Thyroid Enlargement, Masses Respiratory: Symmetrical Chest Expansion and Respiratory Effort, Clear to Auscultation Cardiovascular: NL Sounds; No Murmurs; No JVD, RRR Abdominal: NL Sounds; No Tenderness; No Distention Lymphatic: No Cervical Adenopathy Extremities: No Edema, - - L BKA Neurological: Alert and Oriented x 3 Assess/Plan/Problems-Billing Assessment: 48 yo F with PMH PSA admitted with osteo of L foot after complicated rhabdo earlier this year. s/p L BKA, getting PT on swing status, working with PT, declined by PMRU - Patient Problems (1) Status post below knee amputation of left lower extremity Current Visit: Yes Status: Acute Code(s): Z89.512 - ACQUIRED ABSENCE OF LEFT LEG BELOW KNEE SNOMED Code(s): 872683831303254 Comment: -Working with PT -Seeking rehab options -Needs prosthesis and 6 weeks of stump healing (2) Anxiety and depression Current Visit: No Status: Acute Code(s): F41.9 - ANXIETY DISORDER, UNSPECIFIED; F32.9 - MAJOR DEPRESSIVE DISORDER, SINGLE EPISODE, UNSPECIFIED SNOMED Code(s): 655327275 Comment: Well controlled currently -Prozac, ativan, Trazosone (3) Compartment syndrome Current Visit: No Status: Acute Priority: High Code(s): T79.A0XA - COMPARTMENT SYNDROME, UNSPECIFIED, INITIAL ENCOUNTER SNOMED Code(s): 225118692 Comment: - Resolved, multiple fascitomies now s/p BKA on L (4) Polysubstance (including opioids) dependence w/o physiol dependence Current Visit: No Status: Acute Code(s): F19.20 - OTHER PSYCHOACTIVE SUBSTANCE DEPENDENCE, UNCOMPLICATED SNOMED Code(s): 61614047 Comment: On Methadone TID for pain has diluadid PO for breakthru, would be cautious to d/c on such (5) DVT prophylaxis Current Visit: No Status: Acute Code(s): SIK4794 - SNOMED Code(s): 964046461 Comment: SQ heparin (6) Full code status Current Visit: Yes Status: Acute Code(s): Z78.9 - OTHER SPECIFIED HEALTH STATUS SNOMED Code(s): 282524975 Status and Disposition: PT, awaiting rehab options
[2019-01-31] MEDS: HYDROmorphone TAB* 4 MG PO PRN ×3 (08:12→21:10)
[2019-01-31] MEDS: Acetaminophen TAB* 325 MG PO PRN ×3 (08:13→21:12)
[2019-01-31] MEDS: LORazepam TAB(*) 0.5 MG PO PRN (19:59)
[2019-01-31] MEDS: traZODone TAB* 100 MG PO SCH (21:11)
[2019-01-31] MEDS: Montelukast Sodium TAB* 10 MG PO SCH (21:36)
[2019-02-01] MEDS: Pregabalin CAP(*) 25 MG PO SCH ×3 (09:38→21:33)
[2019-02-01] MEDS: Fluticasone NASAL SPRAY 50MCG* 16 gm SPRAY BTL BOTH NARES SCH (09:38)
[2019-02-01] MEDS: Cetirizine* 10 MG TAB PO SCH (09:39)
[2019-02-01] MEDS: Heparin VIAL(*) 5000 UNITS/ML VIAL (FIVE THOUSAND) SUBCUT SCH ×2 (09:39→21:25)
[2019-02-01] MEDS: Polyethylene Glycol 3350* 17 GM PACKET PO SCH ×2 (09:39→21:26)
[2019-02-01] MEDS: Pantoprazole TAB * 40 MG TAB PO SCH (09:39)
[2019-02-01] MEDS: FLUoxetine CAP* 10 MG PO SCH (09:39)
[2019-02-01] MEDS: Methadone TAB* 10 MG PO SCH ×3 (09:41→21:34)
[2019-02-01] MEDS: Acetaminophen TAB* 325 MG PO PRN (11:38)
[2019-02-01] MEDS: HYDROmorphone TAB* 4 MG PO PRN (11:39)
[2019-02-01] MEDS: LORazepam TAB(*) 0.5 MG PO PRN (21:33)
[2019-02-01] MEDS: Montelukast Sodium TAB* 10 MG PO SCH (21:33)
[2019-02-01] MEDS: traZODone TAB* 100 MG PO SCH (21:34)
[2019-02-01] MEDS ORDERED: Nicotine* 2MG (FRUIT FLAVOR) GUM PO PRN (22:18)
--- NOTE | 2019-02-02 02:59 | PN ---
Progress Note - Progress Note Date of Service: 02/02/19 Note: Paged patient slid off bed and landed on her bottom when trying to reach for her crutches. No head injury. No other injuries. Normally has been independent ambulating with crutches. Will keep crutches closer by.
[2019-02-02] MEDS: Polyethylene Glycol 3350* 17 GM PACKET PO SCH ×2 (07:58→22:11)
[2019-02-02] MEDS: Pregabalin CAP(*) 25 MG PO SCH ×3 (07:58→22:09)
[2019-02-02] MEDS: Cetirizine* 10 MG TAB PO SCH (07:59)
[2019-02-02] MEDS: Methadone TAB* 10 MG PO SCH ×3 (07:59→22:10)
[2019-02-02] MEDS: FLUoxetine CAP* 10 MG PO SCH (07:59)
[2019-02-02] MEDS: Pantoprazole TAB * 40 MG TAB PO SCH (07:59)
[2019-02-02] MEDS: Fluticasone NASAL SPRAY 50MCG* 16 gm SPRAY BTL BOTH NARES SCH (08:00)
[2019-02-02] MEDS: HYDROmorphone TAB* 4 MG PO PRN ×3 (08:00→22:21)
[2019-02-02] MEDS: Acetaminophen TAB* 325 MG PO PRN ×3 (08:00→22:10)
[2019-02-02] MEDS: Heparin VIAL(*) 5000 UNITS/ML VIAL (FIVE THOUSAND) SUBCUT SCH ×2 (08:04→22:11)
[2019-02-02] MEDS: LORazepam TAB(*) 0.5 MG PO PRN ×2 (13:18→22:10)
[2019-02-02] MEDS: traZODone TAB* 100 MG PO SCH (22:09)
[2019-02-02] MEDS: Montelukast Sodium TAB* 10 MG PO SCH (22:10)
[2019-02-03] MEDS: Polyethylene Glycol 3350* 17 GM PACKET PO SCH ×2 (07:42→21:23)
[2019-02-03] MEDS: Acetaminophen TAB* 325 MG PO PRN (07:43)
[2019-02-03] MEDS: Pregabalin CAP(*) 25 MG PO SCH ×3 (07:43→21:20)
[2019-02-03] MEDS: FLUoxetine CAP* 10 MG PO SCH (07:44)
[2019-02-03] MEDS: Pantoprazole TAB * 40 MG TAB PO SCH (07:44)
[2019-02-03] MEDS: Methadone TAB* 10 MG PO SCH ×3 (07:44→21:22)
[2019-02-03] MEDS: Cetirizine* 10 MG TAB PO SCH (07:44)
[2019-02-03] MEDS: HYDROmorphone TAB* 4 MG PO PRN ×2 (07:45→21:22)
[2019-02-03] MEDS: Heparin VIAL(*) 5000 UNITS/ML VIAL (FIVE THOUSAND) SUBCUT SCH ×2 (07:47→21:23)
[2019-02-03] MEDS: Fluticasone NASAL SPRAY 50MCG* 16 gm SPRAY BTL BOTH NARES SCH (07:50)
[2019-02-03] MEDS: Montelukast Sodium TAB* 10 MG PO SCH (21:21)
[2019-02-03] MEDS: traZODone TAB* 100 MG PO SCH (21:22)
[2019-02-04] MEDS: FLUoxetine CAP* 10 MG PO SCH (08:33)
[2019-02-04] MEDS: Cetirizine* 10 MG TAB PO SCH (08:33)
[2019-02-04] MEDS: Methadone TAB* 10 MG PO SCH ×3 (08:34→20:58)
[2019-02-04] MEDS: Fluticasone NASAL SPRAY 50MCG* 16 gm SPRAY BTL BOTH NARES SCH (08:34)
[2019-02-04] MEDS: Heparin VIAL(*) 5000 UNITS/ML VIAL (FIVE THOUSAND) SUBCUT SCH ×2 (08:34→20:56)
[2019-02-04] MEDS: Pantoprazole TAB * 40 MG TAB PO SCH (08:35)
[2019-02-04] MEDS: Pregabalin CAP(*) 25 MG PO SCH ×3 (08:35→20:57)
[2019-02-04] MEDS: Polyethylene Glycol 3350* 17 GM PACKET PO SCH ×2 (08:36→20:57)
[2019-02-04] MEDS: LORazepam TAB(*) 0.5 MG PO PRN (20:58)
[2019-02-04] MEDS: Montelukast Sodium TAB* 10 MG PO SCH (20:58)
[2019-02-04] MEDS: traZODone TAB* 100 MG PO SCH (20:59)
[2019-02-05] MEDS: Heparin VIAL(*) 5000 UNITS/ML VIAL (FIVE THOUSAND) SUBCUT SCH ×2 (09:36→19:29)
[2019-02-05] MEDS: FLUoxetine CAP* 10 MG PO SCH (09:37)
[2019-02-05] MEDS: Cetirizine* 10 MG TAB PO SCH (09:37)
[2019-02-05] MEDS: Methadone TAB* 10 MG PO SCH ×3 (09:37→19:59)
[2019-02-05] MEDS: Pantoprazole TAB * 40 MG TAB PO SCH (09:37)
[2019-02-05] MEDS: Pregabalin CAP(*) 25 MG PO SCH ×3 (09:37→20:04)
[2019-02-05] MEDS: Fluticasone NASAL SPRAY 50MCG* 16 gm SPRAY BTL BOTH NARES SCH (09:38)
[2019-02-05] MEDS: Polyethylene Glycol 3350* 17 GM PACKET PO SCH ×2 (09:39→19:29)
[2019-02-05] MEDS: Montelukast Sodium TAB* 10 MG PO SCH (19:58)
[2019-02-05] MEDS: Acetaminophen TAB* 325 MG PO PRN (19:58)
[2019-02-05] MEDS: HYDROmorphone TAB* 4 MG PO PRN (19:58)
[2019-02-05] MEDS: LORazepam TAB(*) 0.5 MG PO PRN (19:59)
[2019-02-05] MEDS: traZODone TAB* 100 MG PO SCH (19:59)
[2019-02-06] MEDS: Pantoprazole TAB * 40 MG TAB PO SCH (09:16)
[2019-02-06] MEDS: FLUoxetine CAP* 10 MG PO SCH (09:16)
[2019-02-06] MEDS: Pregabalin CAP(*) 25 MG PO SCH ×2 (09:16→13:24)
[2019-02-06] MEDS: Methadone TAB* 10 MG PO SCH (09:17)
[2019-02-06] MEDS: LORazepam TAB(*) 0.5 MG PO PRN (09:17)
[2019-02-06] MEDS: Fluticasone NASAL SPRAY 50MCG* 16 gm SPRAY BTL BOTH NARES SCH (09:18)
[2019-02-06] MEDS: Cetirizine* 10 MG TAB PO SCH (09:18)
[2019-02-06] MEDS: Heparin VIAL(*) 5000 UNITS/ML VIAL (FIVE THOUSAND) SUBCUT SCH (09:18)
[2019-02-06] MEDS: Polyethylene Glycol 3350* 17 GM PACKET PO SCH (09:18)
[2019-02-06 09:23] VITALS: BP 129/82
[2019-02-06] MEDS: HYDROmorphone TAB* 4 MG PO PRN (10:57)
[2019-02-06] MEDS: Acetaminophen TAB* 325 MG PO PRN (10:57)
[2019-02-06] MEDS ORDERED: Methadone TAB* 10 MG PO SCH (14:00)
--- NOTE | 2019-02-06 15:43 | PN ---
Progress Note - Progress Note Date of Service: 02/06/19 SOAP: Subjective: [Pt seen this morning. Sitting in bed without any complaints. She states that she is leaving today. Denies any chest pain, SOB, nausea, vomting. ] Objective: [General: Pt is alert and oriented x 3. NAD. MSK, LLE: Dressing is intact. CHanged today. [place] left in. Good color around the amputation site. ] Assessment: [S/P BKA LLE ] Plan: [Can to be left in Follow up next week with Dr. Appiah for evaluation and staple removal. ] Vital Signs Temp 97.9 F 02/06/19 07:31 Pulse 78 02/06/19 07:31 Resp 16 02/06/19 13:24 BP 129/82 02/06/19 07:31 Pulse Ox 99 02/06/19 07:31 Intake & Output 02/05/19 02/06/19 02/06/19 18:59 06:59 18:59 Intake Total 1200 920 600 Output Total 50 0 Balance 1150 920 600 Intake: Oral 1200 920 600 Output: Urine 50 0 Other: Date of Last Bowel unknown Movement # Bowel Movements 0
--- NOTE | 2019-02-06 20:14 | DS ---
CC: Dr. Sada Rosenberg; Dr. Appiah, Orthopedic Surgery; Dr. Shelby, Infectious Diseases; Dr. Cabrera, Pain Management* DISCHARGE SUMMARY: DATE OF ADMISSION: To swing status of this patient was on 01/25/19. DATE OF DISCHARGE: From swing status to home on 02/06/19. PRIMARY CARE PROVIDER: Dr. Sada Rosenberg. DISCHARGE DIAGNOSES: 1. Osteomyelitis involving the left foot, status post left transtibial amputation. 2. Suicidal ideation, depression, and anxiety that improved. SECONDARY DIAGNOSES: 1. History of posttraumatic stress disorder. 2. History of hepatitis C. 3. Polysubstance abuse. 4. Asthma. 5. Compartment syndrome in September 2018, status post fasciotomy and subsequent debridement of the lower extremity and requiring wound VAC in the past. CONDITION AT DISCHARGE: Stable. DISPOSITION AT DISCHARGE: To home. The patient is actually going to be discharged to live with a friend for a while. FOLLOWUP: At discharge, the patient is recommended to: 1. Follow up with Dr. Cabrera on 02/07/19 at 10:30 a.m. for pain management appointment. 2. With Dr. Appiah an appointment is scheduled at 2:30 p.m. on 02/07/19. 3. The patient is also recommended to follow up with her primary care provider and to call for an appointment in 5 to 7 days. DISCHARGE INSTRUCTIONS: Wound care as per our orthopedic service that educated the patient prior to the patient's discharge. The patient's lindsey are to be removed tomorrow with Dr. Appiah's appointment. MEDICATIONS AT DISCHARGE: Include: 1. Zyrtec 10 mg daily. 2. Colace 100 mg b.i.d. 3. Fluoxetine 30 mg daily. 4. Fluticasone nasal spray 2 sprays both nostrils daily. 5. Ativan 0.5 mg b.i.d. p.r.n. 6. Methadone 15 mg p.o. t.i.d. The patient was dispensed 5-day supply, a total of 22.5 tablets. 7. Singulair 10 mg at bedtime. 8. Protonix 40 mg daily. 9. Lyrica 75 mg 3 times a day. 10. Trazodone 100 mg at bedtime. I-STOP was checked and the patient received a month's prescription of lorazepam on 01/12/19 and a month's prescription of methadone on 01/16/19. HOSPITALIZATION COURSE: Peyton Trujillo is a 48-year-old female, who is status post transtibial amputation of her left lower extremity on 01/16/19. The patient had pain management issues after her surgery and eventually was placed in a swing bed status on 01/25/19. Please also view Dr. Avila's discharge summary on 01/25/19 for details. Shortly, the patient was admitted to swing on that day on 01/25/19 and her remaining stay was uneventful until 02/06/19, the day of discharge. The patient did well with physical therapy and continues to be nonweightbearing status on the left leg and using crutches. As per our orthopedic service, Dr. Appiah will see the patient tomorrow in outpatient office to remove the lindsey. Dr. Cabrera will also follow up with the patient tomorrow. PHYSICAL EXAMINATION: At the time of discharge, blood pressure of 129/82, heart rate of 78 and regular, respiratory rate 16, oxygen saturation 99% on room air, temperature 97.9. General: The patient is a pleasant 48-year-old female, who is in no acute distress. Alert, awake, and oriented x3. HEENT: Head: Atraumatic, normocephalic. Eyes: Pupils are equal, reactive to light and accommodation. Oropharynx is clear. Mucosa moist. Neck: Supple. No JVD. No bruits bilaterally. Cardiovascular: Regular rate and rhythm. No murmur. Respiratory: Clear to auscultation bilaterally. Abdomen: Soft, nontender. Bowel sounds are present in all 4 quadrants. Extremities: There is no edema. Pulses are present bilaterally. There is no clubbing on the right foot. The left lower extremity is status post [id number]-[id number] amputation on the left. The wound is dressed and was just redressed by orthopedic service and I am not going to uncover it for inspection prior to the patient's discharge since it was already done by the orthopedic service. Psychiatric Evaluation: The patient is oriented x3 with no evidence of anxiety or depression. Please note that this is a very short summary of the patient's long and complicated hospitalization. Please refer to further medical records for details. TIME SPENT: Approximately 40 minutes was spent on the patient's discharge. [id number]/[facility] #: [id number] JAYLENE
== END 2019-02-06 14:20 | disposition home or self-care (01) | DRG 540 ==
LOC: SSU 16:39 → MED 01-29 13:20
PROVIDERS: ADMIT Hospitalist; ATTEND Internal Medicine
DX: M86.8X7 Other osteomyelitis, ankle and foot (principal); R45.851 Suicidal ideations; F32.9 Major depressive disorder, single episode, unspecified; F41.9 Anxiety disorder, unspecified; F43.10 Post-traumatic stress disorder, unspecified; J45.909 Unspecified asthma, uncomplicated; F19.10 Other psychoactive substance abuse, uncomplicated; W06.XXXA Fall from bed, initial encounter; Y92.230 Patient room in hospital as the place of occurrence of the external cause; Z86.19 Personal history of other infectious and parasitic diseases; Z79.01 Long term (current) use of anticoagulants; Z79.1 Long term (current) use of non-steroidal anti-inflammatories (NSAID); Z79.51 Long term (current) use of inhaled steroids; Z79.899 Other long term (current) drug therapy; Z89.512 Acquired absence of left leg below knee
CPT/HCPCS: 97530; A9270-GY; G8978-GP-CI; G8978-GP-CK; G8979-GP-CI; G8980-GP-CI; G8987-GO-CJ; G8988-GO-CH; J1644; J2405

== ENCOUNTER 2019-02-11 14:28 | Emergency (ER) | payer MEDICARE, MEDICAID ==
--- OUTSIDE RECORDS SUMMARY | 2019-02-11 15:03 | XMS REPORT | Continuity of Care Document ---
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 Torrie Bond in [place], having ECT Chronic post-traumatic stress disorder Darrick Mruphy M.D. Onset: 11/06/2015 Adult attention deficit hyperactivity Darrick Murphy M.D. Onset: 11/06/2015 disorder Polysubstance abuse Darrick Murphy M.D. Onset: 11/06/2015 Viral hepatitis C Darrick Murphy M.D. Onset: 11/06/2015 Asthma Darrick Murphy M.D. Onset: 11/06/2015 Gastroesophageal reflux disease Darrick Murphy M.D. Onset: 11/06/2015 Achilles bursitis Wilian Sweeney M.D. Onset: 09/15/2016 Chondromalacia of patella Wilian Sweeney M.D. Onset: 09/15/2016 Light cigarette smoker (1-9 cigs/day) Jeovany Huang M.D.,FACP Onset: 08/2017 Patellar tendonitis Wilian Sweeney M.D. Onset: 01/19/2017 Localized, primary osteoarthritis Wilian Sweeney M.D. Onset: 03/09/2017 Subclinical hyperthyroidism Jeovany Huang M.D.,FACP Onset: 08/29/2017 Note: needs repeat TSH Cellulitis of left foot Cj Appiah MD Onset: 12/27/2018 Resolved Problems Derangement of knee Wilian Sweeney M.D. Onset: 11/27/2015 Resolved: 08/20/2016 Current tear of medial cartilage AND/OR Wilian Sweeney M.D. Onset: 2015 meniscus of knee Resolved: 08/20/2016 Peroneal tendinitis, left leg Wilian Sweeney M.D. Onset: 11/27/2015 Resolved: 08/20/2016 Family History Date Family Member(s) Observation Comments General Mother had breast cancer Father Prostate problem Father 69 Mother Breast cancer Mother 66 Siblings 3 Social History Type Date Description Comments Sex Unknown Marital Status Single Lives With Assisted living Occupation Disabled Tobacco Use Start: Unknown Light tobacco smoker (10 or fewer cigarettes/day) ETOH Use Denies alcohol use Recreational Drug Use Former Drug User She used to use Cocaine occasionally, last time Oct 13 2015 Marijuana couple times a year Tobacco Use Reviewed: 06/27/17 Light tobacco smoker 1-2 a day (10 or fewer cigarettes/day) Smoking Status Reviewed: 02/07/19 Light tobacco smoker 1-2 a day (10 or fewer cigarettes/day) Exercise Type/Frequency Does not exercise Currently Active Patient is currently not sexually active Allergies, Adverse Reactions, Alerts Active Allergies Reaction Severity Comments Date Tramadol nausea and itching Moderate 11/06/2015 Nicotine patch rash Severe 11/06/2015 Omeprazole 01/11/2017 Medications Active Medications SIG Qnty Indications Ordering Date Provider Keflex 1 tab by mouth 28caps Cj Appiah, 12/27/2018 500mg Capsules four times a day Lyrica one by mouth twice 90caps M54.31 Jorge Luis 12/07/2018 75mg Capsules a day Marysol Wen Ibuprofen one by mouth three 90tabs T79.A0xD Jorge Luis 11/14/2018 600mg Tablets times a day Marysol Wen Zyrtec Allergy take one tablet by 30caps Junior Gonzales NP 10/31/2018 10mg mouth in the Capsules evening Remeron take 1/2 tablet Unknown 01/04/2018 15mg Tablets every day at bedtime Ibuprofen take one tablet by 60tabs M25.561 Jessica 10/05/2017 600mg Tablets mouth three times PEPE wSenson a day as needed with food Nicotine Polacrilex chew q3-4 h as 100units Jeovany Newberry 08/20/2016 4mg needed mdd5 Jane Huang M.D.,FACP Protonix 1 tablet by mouth 30tabs K21.9 Junior Gonzales NP 11/06/[address] every day Trazodone HCL 1 tab by mouth 30tabs Other Ordering 10/30/2015 300mg every night at Provider Tablets bedtime Methadone HCL 6/day Unknown 10mg Tablets Thiamine HCL 1 by mouth every Unknown 100mg day Tablets Senna Laxative 1 by mouth every Unknown 8.6mg day at bedtime Tablets Lorazepam one tab every six Unknown 1mg Tablets hours as needed for severe anxiety Heparin Lock Flush 1 to 3ml flush per Unknown protocol 10Unit/ML Solution Ferrous Sulfate 1 by mouth every Unknown 325mg day Tablets Docusate Sodium 1 tab every 12 Unknown 100mg hours as needed Capsules for constipation Diphenhydramine HCL 1 tab every 4 Unknown 25mg hours as needed Capsules Ra Clotrimazole 7 1 applicator daily Unknown 1% at bedtime for Cream symptoms Vitamin C 1 by mouth every Unknown 500mg Tablets day Acetaminophen ER 3 by mouth twice a Unknown 650mg day and 650mg Tablets ER every 8 hrs as needed Loratadine once a day for Unknown 10mg Capsules allergies as needed Nicotine Tartrate 10mg inhaled every Unknown Powder 2 hours as needed for cravings Venlafaxine HCL ER 1 by mouth every Unknown 150mg day Tablets ER 24HR Singulair 1 by mouth every 30tabs Junior Gonzales NP 10mg Tablets day History Medications Bupropion HCL ER One tablet once 30tabs Junior Gonzales NP 10/05/2017 - (XL) daily 01/06/2018 300mg Tablets ER 24HR Lidocaine apply to painful 50units M25.561 Junior Gonzales NP 10/05/2017 - 5% Ointment areas three times a 11/17/2017 day as needed. Coumadin take 1-5 tabs by 60tabs Wilian Sweeney, 08/02/2017 - 2mg Tablets mouth daily as M.D. 10/05/2017 directed by doctor. Oxycodone HCL one tablet every 60caps Wilian Sweeney, 07/25/2017 - 5mg 4-6 hours as needed M.D. 09/02/2017 Capsules for pain Oxycodone HCL 1 tab by mouth 14tabs Wilian Sweeney, 07/14/2017 - 10mg twice a day as M.D. 09/02/2017 Tablets needed Latuda 1 by mouth every Jeovany Newberry 05/10/2017 - 40mg Tablets day [facility]sol Huang,[facility] 05/31/2017 Colace 1 tab by mouth 90caps Other Ordering 05/10/2017 - 100mg Capsules daily as needed Provider 06/27/2017 constipation Catapres 1 tab PO bid 60tabs Other Ordering 05/10/2017 - 0.1mg Provider 06/27/2017 Tablets Zyrtec Allergy 1 by mouth every 30caps Other Ordering 05/10/2017 - 10mg day Provider 06/27/2017 Capsules Prednisone 2 tab by mouth 60tabs Other Ordering 05/10/2017 - 20mg every day Provider 06/27/2017 Tablets Oxycodone-Acetaminop one tab by mouth 30tabs Wilian Sweeney, 03/09/2017 - hen qhs as needed for M.D. 07/14/2017 5-325mg Tablets pain/sleep Hydrocodone-Acetamin 1-2 by mouth every 30tabs Jeovany Newberry 01/31/2017 - ophen 6 hours prn. Marysol Huang,FACP 06/17/2017 5-325mg Tablets Butrans topical q7days 4units G89.4 Jeovany Newberry 01/31/2017 - 10mcg/HR Marysol Huang,FACP 06/17/2017 Patches Weekly Nabumetone take 1 tablet by 60tabs Jeovany Newberry 01/12/2017 - 750mg mouth three a day Marysol Huang,FACP 06/27/2017 Tablets as needed muscle aches [place] 1-2 by mouth every 20tabs Jorge Luis Wen, 01/12/2017 - 5-325mg Tablets 4 to 6 hours as M.D. 01/31/2017 needed (patient not on naltrexone) [place] 1-2 by mouth every 8tabs Jorge Luis Wen, 01/11/2017 - 5-325mg Tablets 4 to 6 hours as M.D. 01/10/2017 needed Naproxen 1 by mouth twice a 42tabs M76.62 Jorge Luis Wen, 01/07/2017 - 500mg day as needed M.D. 01/12/2017 Tablets Zepatier 1 by mouth every 30tabs B18.2 Miguel Newberry 10/14/2016 - 50-100mg day Marysol Menon 06/27/2017 Tablets Tazorac topical every day 30gm Jeovany Newberry 10/01/2016 - 0.05% Gel Marysol Huang,FACP 06/27/2017 Epiduo for acne, daily 45gm Jeovany Newberry 09/23/2016 - 0.1-2.5% Gel topical Marysol Huang,FACP 10/01/2016 Fluticasone 1 spray each 16gm Jessica 09/23/2016 - Propionate nostril in in the [place], [employer] 01/06/2018 50mcg/Act morning Suspension Mobic once daily with 30tabs Wilian Sweeney, 09/15/2016 - 15mg Tablets food M.D. 01/12/2017 Bupropion HCL ER 3 by mouth twice a Other Ordering 08/20/2016 - (Smoking Det) day Provider 01/12/2017 150mg Tablets ER 12HR Sertraline HCL 1 by mouth every Other Ordering 08/20/2016 - 100mg day Provider 01/31/2017 Tablets Naproxen 1 by mouth twice a 60tabs M76.62 Wilian Sweeney, 03/17/2016 - 500mg day M.D. 08/20/2016 Tablets Naproxen take one tablet by 60tabs Jeovany Newberry 11/27/2015 - 500mg mouth twice a day Marysol Huang,FACP 09/15/2016 Tablets with food as needed Proair HFA 2 puffs by mouth 1units J45.20 Jessica 11/06/2015 - every 4 hours as PEPE Swenson 01/06/2018 108(90Base) mcg/Act needed Aerosol Seroquel 3 tabs by mouth 75tabs Other Ordering 10/30/2015 - 25mg Tablets every 4 hrs prn Provider 11/20/2015 Sertraline HCL 1 by mouth every 30tabs Other Ordering 10/30/2015 - 50mg day Provider 08/20/2016 Tablets Bupropion HCL ER 1 1/2 tabs by mouth 45tabs Other Ordering 10/30/2015 - (XL) every day Provider 08/20/2016 300mg Tablets ER 24HR Omeprazole 1 by mouth every 60caps Other Ordering 10/30/2015 - 20mg day Provider 11/06/[address] Scott-Acetaminop 1-2 by mouth every Unknown - hen 4 hours as needed 11/10/2018 5-325mg Tablets for post-op pain. Oxycodone HCL 1 by mouth every 4 Unknown - 10mg hours as needed 11/10/2018 Tablets pain Morphine Sulfate 2mg every 2 hours Unknown - as needed iv for 11/10/2018 4mg/ml Solution pain Hydromorphone HCL PF IV every six hours Unknown - as needed for 11/10/2018 1mg/ml Solution severe pain Suboxone 1 strip sl once day Unknown - 12-3mg Film 11/10/2018 Gabapentin 1 by mouth three Unknown - 300mg times a day Unknown Capsules Claritin one daily 30caps Junior Gonzales NP - 10mg 01/06/2018 Capsules Latuda Unknown - 80mg Tablets 10/05/2017 Latuda 1 by mouth every 30tabs Jeovany Newberry - 60mg Tablets day [facility]sol [facility] 05/10/2017 Bupropion HCL ER 1 tab every morning 30tabs Jeovany Newberry - (XL) with 300 mg dose Marysol Huang,FACP 05/31/2017 150mg Tablets ER 24HR Bupropion HCL ER 1 tab every day 30tabs Jeovany Newberry - (XL) with 150 mg dose Marysol Huang,[facility] 05/31/2017 300mg Tablets ER 24HR Loratadine 1 by mouth every 30tabs Jeovany Newberry - 10mg day Marysol Huang,[facility] 05/10/2017 Tablets Naltrexone HCL not taking Unknown - 50mg 01/12/2017 Tablets Trazodone HCL Unknown - 150mg 01/12/2017 Tablets Vistaril 1-2 by mouth four 120caps Jeovany Newberry - 25mg times daily as Marysol Huang,[facility] 06/27/2017 Capsules needed Adderall 1 tab by mouth Unknown - 30mg Tablets twice a day 08/20/2016 Medications Administered in Office Medication SIG Qnty Indications Ordering Provider Date Depomedrol 40MG [place] 03/17/2016 Injection Depomedrol 40MG [place] 03/17/2016 Injection Immunizations CPT Code Status Date Vaccine Reaction Lot # [id number] Given 08/20/2016 Hepatitis A Vaccine Adult pt tolerated well, no [id number] Dosage reaction [id number] Given 01/19/2016 Pneumonia Vaccine Vital Signs Date Vital Result Comment 02/07/2019 1:34pm Height 62 inches 5'2" Weight 150.00 lb BP Systolic 110 mmHg BP Diastolic 60 mmHg Body Temperature 98.5 F BMI (Body Mass Index) 27.4 kg/m2 12/27/2018 12:59pm Height 63 inches 5'3" Heart Rate 84 /min BP Systolic 124 mmHg BP Diastolic 80 mmHg Body Temperature 97.8 F Pain Level 8 12/07/2018 11:31am Height 63 inches 5'3" Heart Rate 80 /min BP Systolic 116 mmHg BP Diastolic 88 mmHg Respiratory Rate 18 /min Body Temperature 99.0 F Pain Level 7 11/14/2018 11:00am Height 63 inches 5'3" Weight 160.00 lb Heart Rate 84 /min BP Systolic 102 mmHg BP Diastolic 84 mmHg Respiratory Rate 18 /min Body Temperature 98.4 F Pain Level 9 BMI (Body Mass Index) 28.3 kg/m2 10/31/2018 9:09am Height 63 inches 5'3" Heart Rate 91 /min BP Systolic 102 mmHg BP Diastolic 70 mmHg Respiratory Rate 18 /min Body Temperature 97.8 F Pain Level 8 11/22/2017 9:14am Height 63 inches 5'3" Weight 168.25 lb Heart Rate 84 /min BP Systolic Sitting 126 mmHg BP Diastolic Sitting 78 mmHg Respiratory Rate 14 /min Body Temperature 98.4 F BMI (Body Mass Index) 29.8 kg/m2 11/17/2017 8:14am Weight 160.00 lb Heart Rate 81 /min BP Systolic 110 mmHg BP Diastolic 65 mmHg Body Temperature 97.1 F O2 % BldC Oximetry 96 % 10/05/2017 8:45am Weight 160.00 lb Heart Rate 84 /min BP Systolic 104 mmHg BP Diastolic 62 mmHg Body Temperature 99.4 F O2 % BldC Oximetry 97 % 08/19/2017 9:10am Height 63 inches 5'3" Weight 158.00 lb BP Systolic 130 mmHg BP Diastolic 74 mmHg Body Temperature 97.3 F Pain Level 9 BMI (Body Mass Index) 28.0 kg/m2 06/29/2017 9:47am Height 63 inches 5'3" Weight 158.00 lb BP Systolic 122 mmHg BP Diastolic 68 mmHg Respiratory Rate 20 /min Body Temperature 97.2 F Pain Level 5 BMI (Body Mass Index) 28.0 kg/m2 06/27/2017 1:38pm Height 63 inches 5'3" Weight 144.00 lb Heart Rate 69 /min BP Systolic Sitting 118 mmHg BP Diastolic Sitting 80 mmHg O2 % BldC Oximetry 99 % BMI (Body Mass Index) 25.5 kg/m2 06/01/2017 10:45am Height 63 inches 5'3" Weight 158.00 lb BP Systolic 104 mmHg BP Diastolic 62 mmHg Respiratory Rate 18 /min Body Temperature 98.4 F Pain Level 10 BMI (Body Mass Index) 28.0 kg/m2 03/09/2017 9:35am Height 63 inches 5'3" Weight 158.00 lb Heart Rate 88 /min BP Systolic 100 mmHg BP Diastolic 58 mmHg Respiratory Rate 18 /min Body Temperature 96.8 F Pain Level 10 BMI (Body Mass Index) 28.0 kg/m2 01/31/2017 4:11pm Weight 158.38 lb Heart Rate 82 /min BP Systolic 102 mmHg BP Diastolic 64 mmHg Body Temperature 97.8 F O2 % BldC Oximetry 82 % 01/21/2017 1:44pm Height 63.25 inches 5'3.25" Weight 148.00 lb BP Systolic 100 mmHg BP Diastolic 72 mmHg Respiratory Rate 17 /min Body Temperature 96.5 F Pain Level 10 BMI (Body Mass Index) 26.0 kg/m2 01/19/2017 9:25am Height 63.25 inches 5'3.25" Weight 148.00 lb Heart Rate 77 /min BP Systolic 105 mmHg BP Diastolic 73 mmHg Respiratory Rate 16 /min BMI (Body Mass Index) 26.0 kg/m2 01/12/2017 9:13am Weight 171.00 lb w/cast Heart Rate 92 /min BP Systolic Sitting 100 mmHg BP Diastolic Sitting 60 mmHg Body Temperature 97.6 F O2 % BldC Oximetry 96 % 01/11/2017 12:01pm Height 63.25 inches 5'3.25" Weight 155.00 lb Respiratory Rate 16 /min Pain Level 8 BMI (Body Mass Index) 27.2 kg/m2 01/07/2017 10:29am Height 63.25 inches 5'3.25" Weight 155.00 lb Heart Rate 90 /min BP Systolic 89 mmHg BP Diastolic 59 mmHg Respiratory Rate 16 /min Pain Level 8 BMI (Body Mass Index) 27.2 kg/m2 10/14/2016 3:56pm Height 63.25 inches 5'3.25" Weight 148.00 lb Heart Rate 72 /min BP Systolic Sitting 104 mmHg BP Diastolic Sitting 64 mmHg Respiratory Rate 14 /min Body Temperature 98.0 F BMI (Body Mass Index) 26.0 kg/m2 09/24/2016 1:12pm Height 63.25 inches 5'3.25" Weight 160.00 lb Heart Rate 80 /min BP Systolic 115 mmHg BP Diastolic 80 mmHg Pain Level 8 BMI (Body Mass Index) 28.1 kg/m2 09/23/2016 3:24pm Height 63.25 inches 5'3.25" Weight 155.00 lb Heart Rate 68 /min BP Systolic Sitting 96 mmHg BP Diastolic Sitting 70 mmHg Body Temperature 97.7 F O2 % BldC Oximetry 96 % BMI (Body Mass Index) 27.2 kg/m2 09/23/2016 2:20pm Height 63.25 inches 5'3.25" Weight 155.25 lb Heart Rate 72 /min BP Systolic Sitting 92 mmHg BP Diastolic Sitting 58 mmHg Respiratory Rate 14 /min Body Temperature 98.0 F BMI (Body Mass Index) 27.3 kg/m2 09/15/2016 11:05am Height 63.25 inches 5'3.25" Weight 148.00 lb Heart Rate 80 /min BP Systolic 101 mmHg BP Diastolic 72 mmHg Pain Level 8 BMI (Body Mass Index) 26.0 kg/m2 08/20/2016 11:36am Height 63.25 inches 5'3.25" Weight 151.25 lb Heart Rate 94 /min BP Systolic Sitting 100 mmHg BP Diastolic Sitting 78 mmHg Body Temperature 97.7 F O2 % BldC Oximetry 97 % BMI (Body Mass Index) 26.6 kg/m2 03/17/2016 9:08am Height 62.5 inches 5'2.50" Weight 156.00 lb Heart Rate 76 /min Respiratory Rate 16 /min Pain Level 8 BMI (Body Mass Index) 28.1 kg/m2 11/27/2015 10:50am Height 62.5 inches 5'2.50" Weight 156.00 lb Heart Rate 76 /min BP Systolic 102 mmHg BP Diastolic 62 mmHg BMI (Body Mass Index) 28.1 kg/m2 11/20/2015 10:14am Height 63 inches 5'3" Weight 153.50 lb Heart Rate 76 /min BP Systolic Sitting 118 mmHg BP Diastolic Sitting 68 mmHg Body Temperature 96.8 F O2 % BldC Oximetry 99 % BMI (Body Mass Index) 27.2 kg/m2 11/06/2015 10:28am Height 63 inches 5'3" Weight 151.38 lb Heart Rate 82 /min BP Systolic Sitting 118 mmHg BP Diastolic Sitting 84 mmHg Body Temperature 97.9 F O2 % BldC Oximetry 98 % BMI (Body Mass Index) 26.8 kg/m2 Results Test Date Facility Test Result H/L Range Note Urine Drug 01/05/20 [facility] Urine Presumptive Abnormal None 1 SCR ED & [address] Amphetamine Posi <SEE NOTE> [place] [address] Screen [phone] Urine Barbiturates Screen None Detected None Detect Urine Benzodiazepine Screen None Detected None Detect Urine Cannabinoids Screen Presumptive Posi <SEE NOTE> Abnormal None Detect 2 Urine Cocaine Screen Presumptive Posi <SEE NOTE> Abnormal None Detect 3 Urine Opiates Screen None Detected None Detect Urine Phencyclidine Screen None Detected None Detect 4 Wound 01/04/2019 [facility] Wound/Misc SEE RESULT 5 Culture/Sensi [address] [place] [address] Stain [phone] CBC Auto Diff 01/03/2019 [facility] White Blood 11.0 High 3.5 - [address] Count 10^3/uL 10.8 [place] [address] [phone] Red Blood Count 4.51 10^6/uL N 3.70-4.87 Hemoglobin 12.1 g/dL N 12.0-16.0 Hematocrit 36 % N 33-41 Mean Corpuscular Volume 80 fL N 80-97 Mean Corpuscular Hemoglobin 27 pg N 27-31 Mean Corpuscular HGB Conc 34 g/dL N 31-36 Red Cell Distribution Width 14 % N 10.5-15 Platelet Count 533 10^3/uL High 150-450 Mean Platelet Volume 7.9 fL N 7.4-10.4 Abs Neutrophils 7.1 10^3/uL N 1.5-7.7 Abs Lymphocytes 2.3 10^3/uL N 1.0-4.8 Abs Monocytes 1.4 10^3/uL High 0-0.8 Abs Eosinophils 0.1 10^3/uL N 0-0.6 Abs Basophils 0.1 10^3/uL N 0-0.2 Abs Nucleated RBC 0 10^3/uL Granulocyte % 64.7 % Lymphocyte % 21.3 % Monocyte % 12.7 % Eosinophil % 0.5 % Basophil % 0.8 % Nucleated Red Blood Cells % 0 Comp Metabolic Panel 01/03/2019 [facility] Sodium 136 mmol/L N 135-[address] [place] [address] [phone] Potassium 3.0 mmol/L Low 3.5-5.0 Chloride 96 mmol/L Low 101-111 Co2 Carbon Dioxide 28 mmol/L N 22-32 Anion Gap 12 mmol/L High 2-11 Glucose 78 mg/dL N 70-100 Blood Urea Nitrogen 8 mg/dL N 6-24 Creatinine 0.78 mg/dL N 0.51-0.95 BUN/Creatinine Ratio 10.3 N 8-20 Calcium 9.5 mg/dL N 8.6-10.3 Total Protein 7.5 g/dL N 6.4-8.9 Albumin 3.9 g/dL N 3.2-5.2 Globulin 3.6 g/dL N 2-4 Albumin/Globulin Ratio 1.1 N 1-3 Total Bilirubin 0.30 mg/dL N 0.2-1.0 Alkaline Phosphatase 256 U/L High 34-104 Alt 15 U/L N 7-52 Ast 22 U/L N 13-39 Egfr Non- 79.5 >60 Egfr 96.2 >60 6 Laboratory test 01/03/2019 [facility] HCG 1.24 mIU/mL [address] [place] [address] [phone] Acetaminophen < 15 g/mL 8 Alcohol < 10 mg/dL N <10 Salicylate < 2.50 mg/dL <30 TSH (Thyroid Stim Horm) 0.79 mcIU/mL N 0.34-5.60 Lactic Acid 0.9 mmol/L N 0.5-2.0 9 C Reactive Protein 78.29 mg/L High <8.01 Erythrocyte Sed Rate > 120 mm/Hr High 0-19 Drug Abuse 11/15/2018 [facility] Urine Presumptive Abnormal [address] Amphetamine Posi <SEE NOTE> [place] [address] ng/mL [phone] Urine Barbiturates Negative ng/mL 11 Urine Benzodiazepines Negative ng/mL 12 Urine Cocaine Negative ng/mL 13 Urine Phencyclidine Negative ng/mL Cutoff: 25 Urine Tetrahydrocannabinol Negative ng/mL Cutoff: 50 14 Creatinine, Urine 160.5 mg/dL Specific [place] 1.011 pH 5.4 Oxidants Negative 15 Adulterants Comment Normal Codeine, Ur Not Detected ng/mL Cutoff: 25 16 Ippbiyc-5-ohnw-glucuronide, Ur Not Detected ng/mL 17 Morphine, Ur Not Detected ng/mL Cutoff: 25 18 Fhpmtpnw-8-exei-glucuronide, U Not Detected ng/mL 19 6-monoacetylmorphine, Ur Not Detected ng/mL Cutoff: 25 20 Hydrocodone, Ur Not Detected ng/mL Cutoff: 25 21 Norhydrocodone, Ur Not Detected ng/mL Cutoff: 25 22 Dihydrocodeine, Ur Not Detected ng/mL Cutoff: 25 23 Hydromorphone, Ur Not Detected ng/mL Cutoff: 25 24 Aforsxuskwakk1yeovsacxsoegqgx Not Detected ng/mL 25 Oxycodone, Ur Not Detected ng/mL Cutoff: 25 26 Noroxycodone, Ur Not Detected ng/mL Cutoff: 25 27 Oxymorphone, Ur Not Detected ng/mL Cutoff: 25 28 Awytwsennfl-5-jviq-glucuronide Not Detected ng/mL 29 Noroxymorphone, Ur Not Detected ng/mL Cutoff: 25 30 Fentanyl, Ur Not Detected ng/mL Cutoff: 2 31 Norfentanyl, Ur Not Detected ng/mL Cutoff: 2 32 Meperidine, Ur Not Detected ng/mL Cutoff: 25 33 Normeperidine, Ur Not Detected ng/mL Cutoff: 25 34 Naloxone, Ur Not Detected ng/mL Cutoff: 25 35 Jlmhxnop-7-seks-glucuronide, U Not Detected ng/mL 36 Methadone, Ur Present ng/mL Abnormal Cutoff: 25 37 Eddp, Ur Present ng/mL Abnormal Cutoff: 25 38 Propoxyphene, Ur Not Detected ng/mL Cutoff: 25 39 Norpropoxyphene, Ur Not Detected ng/mL Cutoff: 25 40 Tramadol, Ur Not Detected ng/mL Cutoff: 25 41 O-desmethyltramadol, Ur Not Detected ng/mL Cutoff: 25 42 Tapentadol, Ur Not Detected ng/mL Cutoff: 25 43 N-desmethyltapentadol, Ur Not Detected ng/mL Cutoff: 50 44 Gcfjakqdpe-lmkh-eokcegkuhsy, U Not Detected ng/mL 45 Buprenorphine, Ur Not Detected ng/mL Cutoff: 5 46 Norbuprenorphine, Ur See Comment ng/mL Cutoff: 5 47 Norbuprenorphine glucuronide Present ng/mL Abnormal Cutoff: 20 48 Opioid Interpretation See Comment 49 Urine 11/15/2018 [facility] Urine Negative Cutoff: [address] Amphetamine by ng/[place] [address] GC/MS [phone] Urine Methamphetamine by GC/MS Negative ng/mL Cutoff: 25 Phentermine-by GC/MS Negative ng/mL Cutoff: 25 Pseudoephedrine/Ephedr GC/MS Negative ng/mL Cutoff: 25 Mda(Ecstacy metabolite) GC/MS Negative ng/mL Cutoff: 25 Mdma(Ecstacy)-by GC/MS Negative ng/mL Cutoff: 25 Urine Amphetamines Interp Negative. 50 Laboratory test 09/19/2018 [facility] Lactic Acid 2.0 mmol/L N 0.5-2.0 [address] [place] [address] [phone] CBC Auto Diff 09/19/2018 [facility] White Blood 17.6 High 3.5- 10.[address] Count 10^3/uL [place], [place] [address] [phone] Red Blood Count 4.57 10^6/uL N 4.00-5.40 Hemoglobin 13.5 g/dL N 12.0-16.0 Hematocrit 39 % N 35-47 Mean Corpuscular Volume 86 fL N 80-97 Mean Corpuscular Hemoglobin 30 pg N 27-31 Mean Corpuscular HGB Conc 34 g/dL N 31-36 Red Cell Distribution Width 14 % N 10.5-15 Platelet Count 203 10^3/uL N 150-450 Mean Platelet Volume 8.2 fL N 7.4-10.4 Abs Neutrophils 14.0 10^3/uL High 1.5-7.7 Abs Lymphocytes 1.2 10^3/uL N 1.0-4.8 Abs Monocytes 2.3 10^3/uL High 0-0.8 Abs Eosinophils 0 10^3/uL N 0-0.6 Abs Basophils 0.1 10^3/uL N 0-0.2 Abs Nucleated RBC 0 10^3/uL Granulocyte % 79.6 % Lymphocyte % 7.0 % Monocyte % 13.0 % Eosinophil % 0 % Basophil % 0.4 % Nucleated Red Blood Cells % 0 Inr/Protime 09/19/2018 [facility] Inr 1.10 High 0.77-1.[address] [place] [address] [phone] Laboratory test 09/19/2018 [facility] Partial 24.5 seconds Low 26.0-36.[address] [place] [address] Time PTT [phone] Type & Screen 09/19/2018 [facility] Patient B Positive [address] [place] [address] [phone] Antibody Screen NEGATIVE Comp Metabolic Panel 09/19/2018 [facility] Sodium 131 mmol/L Low 135-[address] [place] [address] [phone] Chloride 101 mmol/L N 101-111 Co2 Carbon Dioxide 19 mmol/L Low 22-32 Glucose 113 mg/dL High 70-100 Blood Urea Nitrogen 38 mg/dL High 6-24 Creatinine 2.41 mg/dL High 0.51-0.95 BUN/Creatinine Ratio 15.8 N 8-20 Calcium 8.1 mg/dL Low 8.6-10.3 Total Protein 6.6 g/dL N 6.4-8.9 Albumin 3.6 g/dL N 3.2-5.2 Globulin 3.0 g/dL N 2-4 Albumin/Globulin Ratio 1.2 N 1-3 Total Bilirubin 0.70 mg/dL N 0.2-1.0 Alkaline Phosphatase 78 U/L N 34-104 Alt 392 U/L High 7-52 Egfr Non- 21.7 >60 Egfr 26.3 >60 52 Potassium 4.0 mmol/L N 3.5-5.0 Anion Gap 11 mmol/L N 2-11 Ast 1079 U/L High 13-39 Laboratory test 09/19/2018 [facility] C Reactive 119.03 mg/L High <8.[address] [place] [address] [phone] HCG < 0.60 mIU/mL 53 Creatine Kinase(CK) 27773 U/L High 10-223 Blood Culture SEE RESULT BELOW 54 Urine Drug 01/02/2018 [facility] Amphetamine Ur None Detected None Detect SCR ED & [address] [place] [address] [phone] Barbiturates Urine Screen None Detected None Detect Benzodiazepine Urine Screen None Detected None Detect Urine Cannabinoids Screen None Detected None Detect Urine Cocaine Screen None Detected None Detect Urine Opiates Screen None Detected None Detect Urine Phencyclidine Screen None Detected None Detect 55 Laboratory test 01/02/2018 [facility] Acetaminophen < 15 g/mL [address] [place] [address] [phone] Alcohol < 10 mg/dL N <10 Salicylate < 2.50 mg/dL <30 TSH (Thyroid Stim Horm) 1.02 mcIU/mL N 0.34-5.60 Comp Metabolic Panel 01/02/2018 [facility] Sodium 136 mmol/L Low 139-[address] [place] [address] [phone] Potassium 3.9 mmol/L N 3.5-5.0 Chloride 105 mmol/L N 101-111 Co2 Carbon Dioxide 25 mmol/L N 22-32 Anion Gap 6 mmol/L N 2-11 Glucose 117 mg/dL High 70-100 Blood Urea Nitrogen 13 mg/dL N 6-24 Creatinine 0.85 mg/dL N 0.51-0.95 BUN/Creatinine Ratio 15.3 N 8-20 Calcium 9.1 mg/dL N 8.6-10.3 Total Protein 6.9 g/dL N 6.4-8.9 Albumin 4.2 g/dL N 3.2-5.2 Globulin 2.7 g/dL N 2-4 Albumin/Globulin Ratio 1.6 N 1-3 Total Bilirubin 0.40 mg/dL N 0.2-1.0 Alkaline Phosphatase 54 U/L N 34-104 Alt 22 U/L N 7-52 Ast 37 U/L N 13-39 Egfr Non- 72.3 >60 Egfr 93.0 >60 57 Laboratory test 11/22/2017 [facility] TSH (Thyroid 0.59 mcIU/mL N 0.34-5.[address] Stim Horm) [place] [address] [phone] Free T4 (Free Thyroxine) 1.05 ng/dL N 0.61-1.12 CBC Auto Diff 08/27/2017 [facility] White Blood 8.1 10^3/uL N 3.5-10.[address] [place] [address] [phone] Red Blood Count 4.66 10^6/uL N 4.0-5.4 Hemoglobin 13.3 g/dL N 12.0-16.0 Hematocrit 39 % N 35-47 Mean Corpuscular Volume 84 fL N 80-97 Mean Corpuscular Hemoglobin 29 pg N 27-31 Mean Corpuscular HGB Conc 34 g/dL N 31-36 Red Cell Distribution Width 14 % N 10.5-15 Platelet Count 286 10^3/uL N 150-450 Mean Platelet Volume 8 um3 N 7.4-10.4 Abs Neutrophils 3.9 10^3/uL N 1.5-7.7 Abs Lymphocytes 3.5 10^3/uL N 1.0-4.8 Abs Monocytes 0.5 10^3/uL N 0-0.8 Abs Eosinophils 0.1 10^3/uL N 0-0.6 Abs Basophils 0.1 10^3/uL N 0-0.2 Abs Nucleated RBC 0 10^3/uL Granulocyte % 47.7 % N 38-83 Lymphocyte % 43.7 % N 25-47 Monocyte % 6.4 % N 1-9 Eosinophil % 1.5 % N 0-6 Basophil % 0.7 % N 0-2 Nucleated Red Blood Cells % 0 Comp Metabolic Panel 08/27/2017 [facility] Sodium 138 mmol/L N 133-145 [address] [place] [address] [phone] Potassium 3.4 mmol/L Low 3.5-5.0 Chloride 108 mmol/L N 101-111 Co2 Carbon Dioxide 25 mmol/L N 22-32 Anion Gap 5 mmol/L N 2-11 Glucose 114 mg/dL High 70-100 Blood Urea Nitrogen 12 mg/dL N 6-24 Creatinine 0.83 mg/dL N 0.51-0.95 BUN/Creatinine Ratio 14.5 N 8-20 Calcium 8.9 mg/dL N 8.6-10.3 Total Protein 6.4 g/dL N 6.4-8.9 Albumin 3.8 g/dL N 3.2-5.2 Globulin 2.6 g/dL N 2-4 Albumin/Globulin Ratio 1.5 N 1-3 Total Bilirubin 0.30 mg/dL N 0.2-1.0 Alkaline Phosphatase 58 U/L N 34-104 Alt 7 U/L N 7-52 Ast 11 U/L Low 13-39 Egfr Non- 74.7 >60 Egfr 96.0 >60 58 Laboratory test 08/27/2017 [facility] Acetaminophen < 15 g/mL 59 finding [address] [place] [address] [phone] Alcohol < 10 mg/dL N <10 Salicylate < 2.50 mg/dL <30 TSH (Thyroid Stim Horm) 0.25 mcIU/mL Low 0.34-5.60 Free T4 (Free Thyroxine) 0.96 ng/dL N 0.61-1.12 Urinalysis Profile 08/27/2017 [facility] Urine Color Yellow [address] [place] [address] [phone] Urine Appearance Cloudy Urine Specific [place] 1.024 N 1.010-1.030 Urine pH 5.0 N 5-9 Urine Urobilinogen Negative Negative Urine Ketones Negative Negative Urine Protein Negative Negative Urine Leukocytes Negative Negative Urine Blood 1+ Abnormal Negative Urine Nitrite Negative Negative Urine Bilirubin Negative Negative Urine Glucose Negative Negative Urine White Blood Cell Trace(0-5/hpf) Absent Urine Red Blood Cell 1+(3-5/hpf) Abnormal Absent Urine Bacteria Absent Absent Urine Squamous Epithelial Cell Present Abnormal Absent Urine Drug 08/27/2017 [facility] Amphetamine Ur None Detected None Detect SCR ED & [address] [place] [address] [phone] Barbiturates Urine Screen None Detected None Detect Benzodiazepine Urine Screen None Detected None Detect Urine Cannabinoids Screen None Detected None Detect Urine Cocaine Screen Presumptive Posi <SEE NOTE> Abnormal None Detect 60 Urine Opiates Screen None Detected None Detect Urine Phencyclidine Screen None Detected None Detect 61 Urine Culture And 06/29/2017 [facility] Urine SEE RESULT 62 , [address] [place] [address] [phone] Laboratory test 06/29/2017 [facility] TSH (Thyroid 1.74 N 0.34 - [address] Stim Horm) mcIU/mL 5.60 [place] [address] [phone] Comp Metabolic 06/29/2017 [facility] Sodium 134 mmol/L N 133- [address] [place] [address] [phone] Potassium 3.8 mmol/L N 3.5-5.0 Chloride 101 mmol/L N 101-111 Co2 Carbon Dioxide 24 mmol/L N 22-32 Anion Gap 9 mmol/L N 2-11 Glucose 83 mg/dL N 70-100 Blood Urea Nitrogen 12 mg/dL N 6-24 Creatinine 0.88 mg/dL N 0.51-0.95 BUN/Creatinine Ratio 13.6 N 8-20 Calcium 9.5 mg/dL N 8.6-10.3 Total Protein 7.4 g/dL N 6.4-8.9 Albumin 4.7 g/dL N 3.2-5.2 Globulin 2.7 g/dL N 2-4 Albumin/Globulin Ratio 1.7 N 1-3 Total Bilirubin 0.70 mg/dL N 0.2-1.0 Alkaline Phosphatase 66 U/L N 34-104 Alt 10 U/L N 7-52 Ast 22 U/L N 13-39 Egfr Non- 69.8 N >60 Egfr 89.8 N >60 65 Type & Screen 06/29/2017 [facility] Patient Blood Type B Positive [place] [address] [place] [address] [phone] Antibody Screen NEGATIVE N Laboratory test 06/29/2017 [facility] Partial 28.1 seconds N 26.0-36.[address] [place] [address] PTT [phone] CBC No Diff 06/29/2017 [facility] White Blood 8.9 10^3/uL N 3.5-10.[address] [place] [address] [phone] Red Blood Count 4.63 10^6/uL N 4.0-5.4 Hemoglobin 13.4 g/dL N 12.0-16.0 Hematocrit 39 % N 35-47 Mean Corpuscular Volume 84 fL N 80-97 Mean Corpuscular Hemoglobin 29 pg N 27-31 Mean Corpuscular HGB Conc 34 g/dL N 31-36 Red Cell Distribution Width 15 % N 10.5-15 Platelet Count 367 10^3/uL N 150-450 Mean Platelet Volume 8 um3 N 7.4-10.4 Urinalysis Profile 06/29/2017 [facility] Urine Color Yellow N [address] [place], [place] [id number] [phone] Urine Appearance Cloudy N Urine Specific [place] 1.031 High 1.010-1.030 Urine pH 5.0 N 5-9 Urine Urobilinogen Negative N Negative Urine Ketones Negative N Negative Urine Protein 1+(30 mg/dL) Abnormal Negative Urine Leukocytes Negative N Negative Urine Blood Negative N Negative * * Abnormal Negative 67 Urine Nitrite Negative N Negative Urine Bilirubin Negative N Negative Urine Glucose Negative N Negative Urine White Blood Cell Trace(0-5/hpf) N Absent Urine Red Blood Cell Absent N Absent Urine Bacteria Absent N Absent Urine Squamous Epithelial Cell Present Abnormal Absent Urine Uric Acid Crystals Present Abnormal Absent Inr/Protime 06/29/2017 [facility] Inr 0.94 N 0.89-1.[address] [place], [place] [address] [phone] Laboratory test 06/21/2017 [facility] MRSA/S. SEE RESULT 68 , finding [address] aureus Ssti BELOW [address] [place] [address] PCR [phone] Wound 06/21/2017 [facility] Wound/Misc SEE RESULT 70 Culture/Sensi [address] [place] [address] m Stain [phone] Laboratory test 06/04/2017 [facility] Partial 25.3 Low 26.0- 36.[address] [place] [address] Time PTT [phone] Inr/Protime 06/04/2017 [facility] Inr 0.90 N 0.89-1.[address] [place], [place] [address] [phone] CBC Auto Diff 06/04/2017 [facility] White Blood 13.4 High 3.5- 10.[address] Count 10^3/uL [place], [place] [address] [phone] Red Blood Count 4.54 10^6/uL N 4.0-5.4 Hemoglobin 13.2 g/dL N 12.0-16.0 Hematocrit 40 % N 35-47 Mean Corpuscular Volume 87 fL N 80-97 Mean Corpuscular Hemoglobin 29 pg N 27-31 Mean Corpuscular HGB Conc 33 g/dL N 31-36 Red Cell Distribution Width 15 % N 10.5-15 Platelet Count 233 10^3/uL N 150-450 Mean Platelet Volume 8 um3 N 7.4-10.4 Abs Neutrophils 11.9 10^3/uL High 1.5-7.7 Abs Lymphocytes 0.7 10^3/uL Low 1.0-4.8 Abs Monocytes 0.7 10^3/uL N 0-0.8 Abs Eosinophils 0 10^3/uL N 0-0.6 Abs Basophils 0.1 10^3/uL N 0-0.2 Abs Nucleated RBC 0 10^3/uL N Granulocyte % 89.1 % High 38-83 Lymphocyte % 4.9 % Low 25-47 Monocyte % 5.5 % N 1-9 Eosinophil % 0.1 % N 0-6 Basophil % 0.4 % N 0-2 Nucleated Red Blood Cells % 0 N Laboratory test 06/04/2017 [facility] Troponin-I (TnI) 0.00 ng/ mL N <0.[address] [place] [address] [phone] HCG < 0.60 mIU/mL N 71 Comp Metabolic Panel 06/04/2017 [facility] Sodium 139 mmol/L N 133-[address] [place] [address] [phone] Potassium 3.7 mmol/L N 3.5-5.0 Chloride 104 mmol/L N 101-111 Co2 Carbon Dioxide 27 mmol/L N 22-32 Anion Gap 8 mmol/L N 2-11 Glucose 96 mg/dL N 70-100 Blood Urea Nitrogen 15 mg/dL N 6-24 Creatinine 0.78 mg/dL N 0.51-0.95 BUN/Creatinine Ratio 19.2 N 8-20 Calcium 8.7 mg/dL N 8.6-10.3 Total Protein 6.7 g/dL N 6.4-8.9 Albumin 4.1 g/dL N 3.2-5.2 Globulin 2.6 g/dL N 2-4 Albumin/Globulin Ratio 1.6 N 1-3 Total Bilirubin 0.40 mg/dL N 0.2-1.0 Alkaline Phosphatase 61 U/L N 34-104 Alt 9 U/L N 7-52 Ast 16 U/L N 13-39 Egfr Non- 80.2 N >60 Egfr 103.2 N >60 72 Laboratory 06/01/2017 [facility] Hepatitis C Undetected N Undetected [address] Rna Quant IU/[place] [address] [phone] CBC Auto Diff 04/23/2017 [facility] White Blood 8.3 10^3/uL N 3.5-10.8 [address] [place] [address] [phone] Red Blood Count 4.93 10^6/uL N 4.0-5.4 Hemoglobin 14.1 g/dL N 12.0-16.0 Hematocrit 41 % N 35-47 Mean Corpuscular Volume 82 fL N 80-97 Mean Corpuscular Hemoglobin 29 pg N 27-31 Mean Corpuscular HGB Conc 35 g/dL N 31-36 Red Cell Distribution Width 14 % N 10.5-15 Platelet Count 257 10^3/uL N 150-450 Mean Platelet Volume 9 um3 N 7.4-10.4 Abs Neutrophils 4.5 10^3/uL N 1.5-7.7 Abs Lymphocytes 2.8 10^3/uL N 1.0-4.8 Abs Monocytes 0.7 10^3/uL N 0-0.8 Abs Eosinophils 0.1 10^3/uL N 0-0.6 Abs Basophils 0.1 10^3/uL N 0-0.2 Abs Nucleated RBC 0.01 10^3/uL N Granulocyte % 54.5 % N 38-83 Lymphocyte % 34.0 % N 25-47 Monocyte % 8.9 % N 1-9 Eosinophil % 1.5 % N 0-6 Basophil % 1.1 % N 0-2 Nucleated Red Blood Cells % 0.1 N Comp Metabolic Panel 04/23/2017 [facility] Sodium 138 mmol/L N 133-[address] [place] [address] [phone] Potassium 3.0 mmol/L Low 3.5-5.0 Chloride 103 mmol/L N 101-111 Co2 Carbon Dioxide 28 mmol/L N 22-32 Anion Gap 7 mmol/L N 2-11 Glucose 117 mg/dL High 70-100 Blood Urea Nitrogen 8 mg/dL N 6-24 Creatinine 0.82 mg/dL N 0.51-0.95 BUN/Creatinine Ratio 9.8 N 8-20 Calcium 8.8 mg/dL N 8.6-10.3 Total Protein 6.8 g/dL N 6.4-8.9 Albumin 3.9 g/dL N 3.2-5.2 Globulin 2.9 g/dL N 2-4 Albumin/Globulin Ratio 1.3 N 1-3 Total Bilirubin 0.60 mg/dL N 0.2-1.0 Alkaline Phosphatase 70 U/L N 34-104 Alt 11 U/L N 7-52 Ast 18 U/L N 13-39 Egfr Non- 75.7 N >60 Egfr 97.4 N >60 74 Laboratory test 04/23/2017 [facility] Acetaminophen < 15 g/mL N [address] [place] [address] [phone] Alcohol < 10 mg/dL N <10 Salicylate < 2.50 mg/dL N <30 HCG < 0.60 mIU/mL N 76 TSH (Thyroid Stim Horm) 0.24 mcIU/mL Low 0.34-5.60 Urinalysis Profile 04/23/2017 [facility] Urine Color Yellow N [address] [place] [address] [phone] Urine Appearance Cloudy N Urine Specific [place] 1.024 N 1.010-1.030 Urine pH 7.0 N 5-9 Urine Urobilinogen Positive Abnormal Negative Urine Ketones Trace Abnormal Negative Urine Protein Negative N Negative Urine Leukocytes Trace Abnormal Negative Urine Blood Negative N Negative Urine Nitrite Negative N Negative Urine Bilirubin Negative N Negative Urine Glucose Negative N Negative Urine White Blood Cell Trace(0-5/hpf) N Absent Urine Red Blood Cell Trace(0-2/hpf) N Absent Urine Bacteria Absent N Absent Urine Squamous Epithelial Cell Present Abnormal Absent Urine Drug 04/23/2017 [facility] Amphetamine Ur None Detected N None Detect SCR ED & [address] [place] [address] [phone] Barbiturates Urine Screen None Detected N None Detect Benzodiazepine Urine Screen Presumptive Posi <SEE NOTE> Abnormal None Detect 77 Urine Cannabinoids Screen Presumptive Posi <SEE NOTE> Abnormal None Detect 78 Urine Cocaine Screen Presumptive Posi <SEE NOTE> Abnormal None Detect 79 Urine Opiates Screen Presumptive Posi <SEE NOTE> Abnormal None Detect 80 Urine Phencyclidine Screen None Detected N None Detect 81 Urine Culture And 04/23/2017 [facility] Urine SEE RESULT [address] [place] [address] [phone] Laboratory test 04/03/2017 [facility] Monospot Negative N Negative finding [address] [place] [address] [phone] Comp Metabolic 04/03/2017 [facility] Sodium 135 mmol/L N 133- [address] [place] [address] [phone] Potassium 3.4 mmol/L Low 3.5-5.0 Chloride 103 mmol/L N 101-111 Co2 Carbon Dioxide 23 mmol/L N 22-32 Anion Gap 9 mmol/L N 2-11 Glucose 91 mg/dL N 70-100 Blood Urea Nitrogen 11 mg/dL N 6-24 Creatinine 0.72 mg/dL N 0.51-0.95 BUN/Creatinine Ratio 15.3 N 8-20 Calcium 8.6 mg/dL N 8.6-10.3 Total Protein 6.4 g/dL N 6.4-8.9 Albumin 3.7 g/dL N 3.2-5.2 Globulin 2.7 g/dL N 2-4 Albumin/Globulin Ratio 1.4 N 1-3 Total Bilirubin 0.60 mg/dL N 0.2-1.0 Alkaline Phosphatase 61 U/L N 34-104 Alt 9 U/L N 7-52 Ast 17 U/L N 13-39 Egfr Non- 88.0 N >60 Egfr 113.2 N >60 83 Laboratory test 04/03/2017 [facility] C Reactive 85.82 mg/L High < 5.00 [address] [place] [address] [phone] Lyme Disease Serology Negative N Negative 85 CBC Auto Diff 04/03/2017 [facility] White Blood 8.5 10^3/uL N 3.5-10.[address] [place] [address] [phone] Red Blood Count 4.73 10^6/uL N 4.0-5.4 Hemoglobin 13.7 g/dL N 12.0-16.0 Hematocrit 41 % N 35-47 Mean Corpuscular Volume 86 fL N 80-97 Mean Corpuscular Hemoglobin 29 pg N 27-31 Mean Corpuscular HGB Conc 34 g/dL N 31-36 Red Cell Distribution Width 15 % N 10.5-15 Platelet Count 181 10^3/uL N 150-450 Mean Platelet Volume 9 um3 N 7.4-10.4 Abs Neutrophils 5.8 10^3/uL N 1.5-7.7 Abs Lymphocytes 1.8 10^3/uL N 1.0-4.8 Abs Monocytes 0.9 10^3/uL High 0-0.8 Abs Eosinophils 0.1 10^3/uL N 0-0.6 Abs Basophils 0 10^3/uL N 0-0.2 Abs Nucleated RBC 0.02 10^3/uL N Granulocyte % 67.5 % N 38-83 Lymphocyte % 21.5 % Low 25-47 Monocyte % 10.0 % High 1-9 Eosinophil % 0.8 % N 0-6 Basophil % 0.2 % N 0-2 Nucleated Red Blood Cells % 0.3 N Laboratory test 04/03/2017 [facility] Partial 24.2 Low 26.0- 36.[address] [address] PTT [phone] Inr/Protime 04/03/2017 [facility] Inr 1.03 N 0.89-1.[address] [place] [address] [phone] Laboratory test 04/03/2017 [facility] Lactic Acid 0.6 mmol/L N 0.5-2.[address] [place] [address] [phone] Laboratory test 01/31/2017 [facility] TSH (Thyroid 0.67 N 0.34 -5.[address] Stim Horm) mcIU/[place] [address] [phone] Free T4 (Free Thyroxine) 0.69 ng/dL N 0.61-1.12 T3 Total 0.92 ng/mL N 0.87-1.78 Drug Abuse 20 01/31/2017 [facility] Urine Amphetamine Negative ng/mL N [address] [place] [address] [phone] Urine Barbiturates Negative ng/mL N 88 Urine Benzodiazepines Negative ng/mL N 89 Urine Cocaine Negative ng/mL N 90 Urine Phencyclidine Negative ng/mL N Cutoff: 25 Urine Tetrahydrocannabinol Presumptive Posi <SEE NOTE> ng/mL N Cutoff: 50 91 Creatinine 69.1 mg/dL N Specific [place] 1.013 N pH 5.7 N Oxidants Negative N 92 Adulterants Comment Normal N Codeine, Ur Not Detected ng/mL N Cutoff: 25 93 Mmzddwf-8-jppf-glucuronide, Ur Not Detected ng/mL N 94 Morphine, Ur Not Detected ng/mL N Cutoff: 25 95 Wdtrornh-4-mpvo-glucuronide, U Not Detected ng/mL N 96 6-monoacetylmorphine, Ur Not Detected ng/mL N Cutoff: 25 97 Hydrocodone, Ur Not Detected ng/mL N Cutoff: 25 98 Norhydrocodone, Ur Not Detected ng/mL N Cutoff: 25 99 Dihydrocodeine, Ur Not Detected ng/mL N Cutoff: 25 100 Hydromorphone, Ur Not Detected ng/mL N Cutoff: 25 101 Zgqhtjziowjot5czieqopuodhusfu Not Detected ng/mL N 102 Oxycodone, Ur Not Detected ng/mL N Cutoff: 25 103 Noroxycodone, Ur Not Detected ng/mL N Cutoff: 25 104 Oxymorphone, Ur Not Detected ng/mL N Cutoff: 25 105 Fxljtcjyknu-5-mdul-glucuronide Not Detected ng/mL N 106 Noroxymorphone, Ur Not Detected ng/mL N Cutoff: 25 107 Fentanyl, Ur Not Detected ng/mL N Cutoff: 2 108 Norfentanyl, Ur Not Detected ng/mL N Cutoff: 2 109 Meperidine, Ur Not Detected ng/mL N Cutoff: 25 110 Normeperidine, Ur Not Detected ng/mL N Cutoff: 25 111 Naloxone, Ur Not Detected ng/mL N Cutoff: 25 112 Nprlqvmr-1-qmxa-glucuronide, U Present ng/mL N 113 Methadone, Ur Not Detected ng/mL N Cutoff: 25 114 Eddp, Ur Not Detected ng/mL N Cutoff: 25 115 Propoxyphene, Ur Not Detected ng/mL N Cutoff: 25 116 Norpropoxyphene, Ur Not Detected ng/mL N Cutoff: 25 117 Tramadol, Ur Not Detected ng/mL N Cutoff: 25 118 O-desmethyltramadol, Ur Not Detected ng/mL N Cutoff: 25 119 Tapentadol, Ur Not Detected ng/mL N Cutoff: 25 120 N-desmethyltapentadol, Ur Not Detected ng/mL N Cutoff: 50 121 Ekkbyqqyyf-pgou-xowfpjjocmw, U Not Detected ng/mL N 122 Buprenorphine, Ur Present ng/mL N Cutoff: 5 123 Norbuprenorphine, Ur Present ng/mL N Cutoff: 5 124 Norbuprenorphine glucuronide Present ng/mL N Cutoff: 20 125 Opioid Interpretation See Comment N 126 THC Confirmation 01/31/2017 [facility] Urine Carboxy 148 ng/mL N [address] [place] [address] [phone] Urine THC Interpretation Positive. N 128 Urinalysis Profile 10/19/2016 [facility] Urine Color Straw N [address] [place] [address] [phone] Urine Appearance Cloudy N Urine Specific [place] 1.001 Low 1.010-1.030 Urine pH 7.0 N 5-9 Urine Urobilinogen Negative N Negative Urine Ketones Negative N Negative Urine Protein Negative N Negative Urine Leukocytes Negative N Negative Urine Blood Negative N Negative Urine Nitrite Negative N Negative Urine Bilirubin Negative N Negative Urine Glucose Negative N Negative Urine Drug 10/19/2016 [facility] Amphetamine Ur None Detected N None Detect SCR ED & [address] [address] [phone] Barbiturates Urine Screen None Detected N None Detect Benzodiazepine Urine Screen None Detected N None Detect Urine Cannabinoids Screen Presumptive Posi <SEE NOTE> Abnormal None Detect 129 Urine Cocaine Screen Presumptive Posi <SEE NOTE> Abnormal None Detect 130 Urine Opiates Screen None Detected N None Detect Urine Phencyclidine Screen None Detected N None Detect 131 CBC Auto Diff 10/19/2016 [facility] White Blood 9.1 10^3/uL N 3.5-10.[address] [place] [address] [phone] Red Blood Count 4.51 10^6/uL N 4.0-5.4 Hemoglobin 12.7 g/dL N 12.0-16.0 Hematocrit 38 % N 35-47 Mean Corpuscular Volume 84 fL N 80-97 Mean Corpuscular Hemoglobin 28 pg N 27-31 Mean Corpuscular HGB Conc 34 g/dL N 31-36 Red Cell Distribution Width 15 % N 10.5-15 Platelet Count 255 10^3/uL N 150-450 Mean Platelet Volume 8 um3 N 7.4-10.4 Abs Neutrophils 5.6 10^3/uL N 1.5-7.7 Abs Lymphocytes 2.5 10^3/uL N 1.0-4.8 Abs Monocytes 0.8 10^3/uL N 0-0.8 Abs Eosinophils 0.1 10^3/uL N 0-0.6 Abs Basophils 0.1 10^3/uL N 0-0.2 Abs Nucleated RBC 0 10^3/uL N Granulocyte % 61.3 % N 38-83 Lymphocyte % 28.0 % N 25-47 Monocyte % 8.8 % N 1-9 Eosinophil % 0.8 % N 0-6 Basophil % 1.1 % N 0-2 Nucleated Red Blood Cells % 0 N Comp Metabolic Panel 10/19/2016 [facility] Sodium 137 mmol/L N 133-145 [address] [place] [address] [phone] Potassium 3.5 mmol/L N 3.5-5.0 Chloride 109 mmol/L N 101-111 Co2 Carbon Dioxide 24 mmol/L N 22-32 Anion Gap 4 mmol/L N 2-11 Glucose 212 mg/dL High 70-100 Blood Urea Nitrogen 10 mg/dL N 6-24 Creatinine 0.61 mg/dL N 0.51-0.95 BUN/Creatinine Ratio 16.4 N 8-20 Calcium 8.5 mg/dL Low 8.6-10.3 Total Protein 6.3 g/dL Low 6.4-8.9 Albumin 3.6 g/dL N 3.2-5.2 Globulin 2.7 g/dL N 2-4 Albumin/Globulin Ratio 1.3 N 1-3 Total Bilirubin 0.20 mg/dL N 0.2-1.0 Alkaline Phosphatase 72 U/L N 34-104 Alt 27 U/L N 7-52 Ast 33 U/L N 13-39 Egfr Non- 106.5 N >60 Egfr 137.0 N >60 132 Laboratory test 10/19/2016 [facility] Acetaminophen < 15 g/mL N 133 finding [address] [place] [address] [phone] Alcohol < 10 mg/dL N <10 Salicylate < 2.50 mg/dL N <30 TSH (Thyroid Stim Horm) 0.04 mcIU/mL Low 0.34-5.60 Laboratory 10/01/2016 [facility] Hepatitis B Nonreactive N Nonreactive test finding 101 [facility] [place] [address] [phone] Laboratory 10/01/2016 [facility] Reference See Comment N 134 test finding 101 [facility] [place] [address] [phone] Hepatitis B 10/01/2016 [facility] Hepatitis B Nonreactive N Nonreactive Perla AB Titer [address] [place] [address] [phone] Hep B Surf AB Level 8.56 mIU/mL N <12 135 Laboratory test 09/06/2016 [facility] Glucose 102 mg/dL High 70-100 finding [address] [place] [address] [phone] Lipid Profile 09/06/2016 [facility] Triglycerides 81 mg/dL N 136 (Trig/Chol/HDL) [address] [place] [address] [phone] Cholesterol 169 mg/dL N 137 HDL Cholesterol 57.4 mg/dL N 138 LDL Cholesterol 95 mg/dL N 139 Liver Fibrosis Panel 09/06/2016 [facility] Fibrosis Score 0.[address] [place] [address] [phone] Fibrosis Stage F0 N Fibrosis Interpretation See Comment N 140 Necroinflammat Activity Score 0.10 N Necroinflammat Activity Grade A0 N Necroinflammat Interpretation See Comment N 141 Alpha 2 Macroglobulins, Qn 201 mg/dL N 106-279 Haptoglobin 94 mg/dL N 43-212 Apolipoprotein A-1 154 mg/dL N 101-198 Bilirubin, Total 0.2 mg/dL N 0.2-1.2 GGT 39 U/L N 3-55 Alt (SGPT) 27 U/L N 6-29 Reference Id [id number] N Footnote See Comment N 142 Laboratory test 09/06/2016 [facility] Hepatitis C 144643 N Undetected 143 finding 101 Rna Quant IU/[place] [address] [phone] Liver Function 09/06/2016 [facility] Total Protein 6.8 g/dL N 6.4-8.[address] [place] [address] [phone] Albumin 4.2 g/dL N 3.2-5.2 Globulin 2.6 g/dL N 2-4 Albumin/Globulin Ratio 1.6 N 1-3 Total Bilirubin 0.20 mg/dL N 0.2-1.0 Direct Bilirubin 0.00 mg/dL Low 0.03-0.18 Alkaline Phosphatase 74 U/L N 34-104 Alt 28 U/L N 7-52 Ast 21 U/L N 13-39 Laboratory test 09/06/2016 [facility] TSH (Thyroid 0.85 mcIU/mL N 0.34-5.[address] Stim Horm) [place] [address] [phone] Vitamin B12 480 pg/mL N 180-914 144 Laboratory test 11/11/2015 [facility] Hepatitis C [id number] N Undetected [address] Rna Quant IU/[place] [address] [phone] Hepatitis C Genotype 1a N Undetected 146 HIV 1/2 AB 11/11/2015 [facility] HIV 1 2 Nonreactive N Nonreactive 147 Evaluation [address] [place] [address] [phone] Urinalysis 11/11/2015 [facility] Urine Color Yellow N Profile [address] [place] [address] [phone] Urine Appearance Cloudy N Urine Specific [place] 1.024 N 1.010-1.030 Urine pH 6.0 N 5-9 Urine Urobilinogen Negative N Negative Urine Ketones Negative N Negative Urine Protein Negative N Negative Urine Leukocytes Negative N Negative Urine Blood Negative N Negative Urine Nitrite Negative N Negative Urine Bilirubin Negative N Negative Urine Glucose Negative N Negative Lipid Profile 11/11/2015 [facility] Triglycerides 110 mg/dL N 148 (Trig/Chol/HDL) [address] [place] [address] [phone] Cholesterol 155 mg/dL N 149 HDL Cholesterol 59.9 mg/dL N 150 LDL Cholesterol 73 mg/dL N 151 Laboratory test 11/11/2015 [facility] TSH (Thyroid 0.79 ?IU/mL N 0.34-5.[address] [place]) [place] [address] [phone] CBC Auto Diff 11/11/2015 [facility] White Blood 6.9 10^3/uL N 3.5-10.[address] [place] [address] [phone] Red Blood Count 4.34 10^6/uL N 4.0-5.4 Hemoglobin 12.6 g/dL N 12.0-16.0 Hematocrit 38 % N 35-47 Mean Corpuscular Volume 87 fL N 80-97 Mean Corpuscular Hemoglobin 29 pg N 27-31 Mean Corpuscular HGB Conc 33 g/dL N 31-36 Red Cell Distribution Width 13 % N 10.5-15 Platelet Count 218 10^3/uL N 150-450 Mean Platelet Volume 8 um3 N 7.4-10.4 Abs Neutrophils 3.8 10^3/uL N 1.5-7.7 Abs Lymphocytes 2.2 10^3/uL N 1.0-4.8 Abs Monocytes 0.8 10^3/uL N 0-0.8 Abs Eosinophils 0.1 10^3/uL N 0-0.6 Abs Basophils 0 10^3/uL N 0-0.2 Abs Nucleated RBC 0.01 10^3/uL N Granulocyte % 54.9 % N 38-83 Lymphocyte % 32.1 % N 25-47 Monocyte % 11.5 % High 1-9 Eosinophil % 0.9 % N 0-6 Basophil % 0.6 % N 0-2 Nucleated Red Blood Cells % 0.1 N Comp Metabolic Panel 11/11/2015 [facility] Sodium 136 mmol/L N 133-[address] [place] [address] [phone] Potassium 3.8 mmol/L N 3.5-5.0 Chloride 103 mmol/L N 101-111 Co2 Carbon Dioxide 29 mmol/L N 22-32 Anion Gap 4 mmol/L N 2-11 Glucose 92 mg/dL N 70-100 Blood Urea Nitrogen 10 mg/dL N 6-24 Creatinine 0.69 mg/dL N 0.51-0.95 BUN/Creatinine Ratio 14.5 N 8-20 Calcium 8.9 mg/dL N 8.6-10.3 Total Protein 6.7 g/dL N 6.4-8.9 Albumin 4.1 g/dL N 3.2-5.2 Globulin 2.6 g/dL N 2-4 Albumin/Globulin Ratio 1.6 N 1-3 Total Bilirubin 0.20 mg/dL N 0.2-1.0 Alkaline Phosphatase 104 U/L N 34-104 Alt 55 U/L High 7-52 Ast 40 U/L High 13-39 Egfr Non- 92.9 N >60 Egfr 119.4 N >60 153 Laboratory 11/11/2015 [facility] Hepatitis C High Abnormal Nonreactive 154 test finding [address] [place] [address] [phone] 1 Presumptive Positive Presumptive positive results are unconfirmed. 2 Presumptive Positive Presumptive positive results are unconfirmed. 3 Presumptive Positive Presumptive positive results are unconfirmed. 4 The urine specimen was tested at the listed cutoffs: Drug class test level (ng/mL) Amphetamines 500 Barbiturates 200 Benzodiazepine metabolites 200 Cocaine metabolites 150 Cannabinoids 50 Opiates 300 Pcp 25 Specimen was received without chain of custody. Results should be used for medical purposes only. 5 SEE RESULT BELOW Name: PEYTON LOVING : [address]: Radha Ruvalcaba MD Acct: [id number] Unit: [id number] AGE: 48 Location: [facility] 403-01 Re01/04/19 SEX: F Status: ADM IN SPEC: [id number] AGUILA: 01/04/[address]: Alec JESUS REQ: [id number] RECD: 01/04/19 STATUS: RES OTHR DR: Jeovany Lucio MD _ SOURCE: FOOT,LEFT SPDESC: ORDERED: Culture Stain Procedure Result Reported Site Wound/Misc Gram Stain Final 01/04/19- 0807 ML 2+ Epithelial Cells 1+ Neutrophils 1+ Gram Positive Cocci 1+ Gram Negative Bacilli Wound/Misc Culture PENDING * ML - Main Lab . END OF REPORT DEPARTMENT OF PATHOLOGY, [address] [place] [address] Panchito Steve M.D. Director [facility] # [id number] 6 Because ethnic data is not always readily available, this report includes an eGFR for both -Americans and non- Americans. The National Kidney Disease Education Program (NKDEP) does not endorse the use of the MDRD equation for patients that are not between the ages of 18 and 70, are , have extremes of body size, muscle mass, or nutritional status, or are non- or non-. According to the National Kidney Foundation, irrespective of diagnosis, the stage of the disease is based on the level of kidney function: Stage Description GFR(mL/min/1.73 m(2)) 1 Kidney damage with normal or decreased GFR 90 2 Kidney damage with mild decrease in GFR 60-89 3 Moderate decrease in GFR 30-59 4 Severe decrease in GFR 15-29 5 Kidney failure <15 (or dialysis) 7 <5.0 Negative 5.0 - 25.0 Indeterminate (Repeat testing recommended after 72 hours) >25.0 Positive Perimenopausal women can display HCG levels of up to 20 mIU/mL 8 Therapeutic concentration: <50 ug/mL Toxic concentration: >120 ug/mL 9 [facility] Severe Sepsis and Septic Shock Management Bundle Measure requires all lactic acids initially measuring >2.0 mmol/L be repeated. 10 Presumptive Positive Drug confirmation to follow. Presumptive Positive means that the screening method is positive, but the test needs to be run by a confirmatory method before being finalized. REFERENCE VALUE Cutoff: 500 11 REFERENCE VALUE Cutoff: 200 12 REFERENCE VALUE Cutoff: 100 13 REFERENCE VALUE Cutoff: 150 14 ADDITIONAL INFORMATION This report is intended for use in clinical monitoring or management of patients. It is not intended for use in employment-related testing. 15 REFERENCE VALUE Cutoff: 200 mg/L 16 Tylenol 3 17 Metabolite of codeine REFERENCE VALUE Cutoff: 100 18 Nola Levine, MS Contin; Also a minor metabolite (10%) of codeine and can be seen in low concentrations (<2,000 ng/mL) with poppy seed ingestion. 19 Metabolite of morphine REFERENCE VALUE Cutoff: 100 20 Metabolite of heroin 21 Lortab, [place], Vicodin; Also a very minor metabolite of codeine and impurity (<1%) of oxycodone. 22 Metabolite of hydrocodone 23 Metabolite of hydrocodone 24 Dilaudid, Exalgo; Also a metabolite of hydrocodone and a minor (<5%) metabolite of morphine. 25 Metabolite of hydromorphone REFERENCE VALUE Cutoff: 100 26 Endocet, Percocet, Oxycontin 27 Metabolite of oxycodone 28 Numorphan, Opana; Also a metabolite of oxycodone. 29 Metabolite of oxymorphone REFERENCE VALUE Cutoff: 100 30 Metabolite of oxymorphone 31 Actiq, Duragesic, Fentora 32 Metabolite of fentanyl 33 Demerol 34 Metabolite of meperidine 35 Narcan 36 Metabolite of naloxone REFERENCE VALUE Cutoff: 100 37 Dolophine 38 Metabolite of methadone 39 Darvon, Darvocet 40 Metabolite of propoxyphene 41 Tradol, Ultram, Ultracet 42 Metabolite of tramadol 43 Nucynta 44 Metabolite of tapentadol 45 Metabolite of tapentadol REFERENCE VALUE Cutoff: 100 46 Buprenex, Suboxone 47 Unknown interfering substance present; unable to obtain results. Metabolite of buprenorphine 48 Metabolite of buprenorphine 49 Test detected the presence of methadone and its metabolite (EDDP). Suspect use of methadone within the past seven days. Test detected the presence of norbuprenorphine glucuronide (metabolite of buprenorphine) only. Suspect use of buprenorphine within the past three days. ADDITIONAL INFORMATION This test was developed and its performance characteristics determined by [facility] in a manner consistent with CLIA requirements. This test has not been cleared or approved by the U.S. Food and Drug Administration. Test Performed by: [facility] - [address] [address] 50 ADDITIONAL INFORMATION This report is intended for use in clinical monitoring and management of patients. It is not intended for use in employment-related testing. This test was developed and its performance characteristics determined by [facility] in a manner consistent with CLIA requirements. This test has not been cleared or approved by the U.S. Food and Drug Administration. Test Performed by: [facility] - [address] [address] 51 [facility] Severe Sepsis and Septic Shock Management Bundle Measure requires all lactic acids initially measuring >2.0 mmol/L be repeated. 52 Because ethnic data is not always readily available, this report includes an eGFR for both -Americans and non- Americans. The National Kidney Disease Education Program (NKDEP) does not endorse the use of the MDRD equation for patients that are not between the ages of 18 and 70, are , have extremes of body size, muscle mass, or nutritional status, or are non- or non-. According to the National Kidney Foundation, irrespective of diagnosis, the stage of the disease is based on the level of kidney function: Stage Description GFR(mL/min/1.73 m(2)) 1 Kidney damage with normal or decreased GFR 90 2 Kidney damage with mild decrease in GFR 60-89 3 Moderate decrease in GFR 30-59 4 Severe decrease in GFR 15-29 5 Kidney failure <15 (or dialysis) 53 <5.0 Negative 5.0 - 25.0 Indeterminate (Repeat testing recommended after 72 hours) >25.0 Positive Perimenopausal women can display HCG levels of up to 20 mIU/mL 54 SEE RESULT BELOW Name: PEYTON LOVING : [address]: Radha Ruvalcaba MD Acct: [id number] Unit: [id number] AGE: 47 Location: [place] [address] Re09/20/18 SEX: F Status: ADM IN SPEC: [id number] AGUILA: 09/19/[address] [facility] [address]: Sridhar St MD REQ: [id number] RECD: 09/19/18 STATUS: GEOVANNA ROSA DR: Jeovany Huang MD _ SOURCE: BLOOD,VENO SPDESC: ORDERED: Blood Cult Procedure Result Reported Site Aerobic Culture Bottle Final 09/24/18- 2200 ML No Growth Day 5 Anaerobic Culture Bottle Final 09/24/18- 2200 ML No Growth Day 5 * ML - Main Lab . END OF REPORT DEPARTMENT OF PATHOLOGY, [address] [place] [address] Panchito Steve M.D. Director [facility] # [id number] 55 The urine specimen was tested at the listed cutoffs: Drug class test level (ng/mL) Amphetamines 500 Barbiturates 200 Benzodiazepine metabolites 200 Cocaine metabolites 150 Cannabinoids 50 Opiates 300 Pcp 25 Specimen was received without chain of custody. Results should be used for medical purposes only. 56 Therapeutic concentration: <50 ug/mL Toxic concentration: >120 ug/mL 57 Because ethnic data is not always readily available, this report includes an eGFR for both -Americans and non- Americans. The National Kidney Disease Education Program (NKDEP) does not endorse the use of the MDRD equation for patients that are not between the ages of 18 and 70, are , have extremes of body size, muscle mass, or nutritional status, or are non- or non-. According to the National Kidney Foundation, irrespective of diagnosis, the stage of the disease is based on the level of kidney function: Stage Description GFR(mL/min/1.73 m(2)) 1 Kidney damage with normal or decreased GFR 90 2 Kidney damage with mild decrease in GFR 60-89 3 Moderate decrease in GFR 30-59 4 Severe decrease in GFR 15-29 5 Kidney failure <15 (or dialysis) 58 Because ethnic data is not always readily available, this report includes an eGFR for both -Americans and non- Americans. The National Kidney Disease Education Program (NKDEP) does not endorse the use of the MDRD equation for patients that are not between the ages of 18 and 70, are , have extremes of body size, muscle mass, or nutritional status, or are non- or non-. According to the National Kidney Foundation, irrespective of diagnosis, the stage of the disease is based on the level of kidney function: Stage Description GFR(mL/min/1.73 m(2)) 1 Kidney damage with normal or decreased GFR 90 2 Kidney damage with mild decrease in GFR 60-89 3 Moderate decrease in GFR 30-59 4 Severe decrease in GFR 15-29 5 Kidney failure <15 (or dialysis) 59 Therapeutic concentration: <50 ug/mL Toxic concentration: >120 ug/mL 60 Presumptive Positive Presumptive positive results are unconfirmed. 61 The urine specimen was tested at the listed cutoffs: Drug class test level (ng/mL) Amphetamines 500 Barbiturates 200 Benzodiazepine metabolites 200 Cocaine metabolites 150 Cannabinoids 50 Opiates 300 Pcp 25 Specimen was received without chain of custody. Results should be used for medical purposes only. 62 AA 07/11 63 SEE RESULT BELOW Name: RAMSEYONEILPEYTON A : [address]: Wilian Sweeney MD Acct: [id number] Unit: [id number] AGE: 46 Location: [facility] Re06/29/17 SEX: F Status: REG REF SPEC: [id number] AGUILA: 06/29/[address] [facility] [address]: Wilian Sweeney MD REQ: [id number] RECD: 06/29/17 STATUS: GEOVANNA ROSA DR: Jeovany Huang MD _ SOURCE: URINE SPDESC: ORDERED: Urine Culture COMMENTS: AA 07/11 QUERIES: Urine Source: Clean Catch Procedure Result Reported Site Urine Culture Final 06/30/17- 1240 ML No Growth (<1,000 CFU/mL) * ML - MAIN LAB ([facility]) . END OF REPORT * ML=Testing performed at Main Lab DEPARTMENT OF PATHOLOGY, [address] [place] [address] Panchito Steve M.D. Director [facility] # [id number] 64 AA 07/11 65 Because ethnic data is not always readily available, this report includes an eGFR for both -Americans and non- Americans. The National Kidney Disease Education Program (NKDEP) does not endorse the use of the MDRD equation for patients that are not between the ages of 18 and 70, are , have extremes of body size, muscle mass, or nutritional status, or are non- or non-. According to the National Kidney Foundation, irrespective of diagnosis, the stage of the disease is based on the level of kidney function: Stage Description GFR(mL/min/1.73 m(2)) 1 Kidney damage with normal or decreased GFR 90 2 Kidney damage with mild decrease in GFR 60-89 3 Moderate decrease in GFR 30-59 4 Severe decrease in GFR 15-29 5 Kidney failure <15 (or dialysis) 66 AA 07/11 67 *Ascorbic acid is present which may interfere with detection of blood. 68 [id number] 69 SEE RESULT BELOW Name: PEYTON LOVING : [address]: Leilani Aly MD Acct: [id number] Unit: [id number] AGE: 46 Location: [facility] Re06/21/17 SEX: F Status: DEP ER SPEC: [id number] AGUILA: 06/21/1713[address]: Denny JSEUS REQ: [id number] RECD: 06/21/17671 STATUS: COMP [facility] DR: Jeovany Aly MD _ SOURCE: [facility]: ORDERED: MRSA/SA SSTI, Culture Stain COMMENTS: [id number] Verbal to [id number] by [id number] at 2141 on 06/21/17. Results read back accurately. Procedure Result Reported Site MRSA/S. aureus SSTI PCR Final 06/21/17- 2140 ML Organism 1 MRSA POSITIVE Organism 2 S.AUREUS POSITIVE Wound/Misc Gram Stain Final 06/22/17- 0745 ML 3+ Epithelial Cells No Neutrophils Observed 1+ Gram Positive Cocci Wound/Misc Culture Final 06/23/17- 1146 ML Organism 1 MRSA Quantity 1+ Organism 2 NORMAL BONNY Quantity 2+ 1. MRSA M.I.C. RX --------- ------ Penicillin >=0.5 R Clindamycin <=0.25 S Erythromycin >=8 R Gentamicin <=0.5 S Linezolid 2 S Nitrofurantoin <=16 S CONTINUED ON NEXT PAGE * ML=Testing performed at Main Lab DEPARTMENT OF PATHOLOGY, [address] [place] [address] Panchito Steve M.D. Director [facility] # [id number] Patient: PEYTON LOVING [id number] (Continued) Specimen: [id number] Collected: 06/21/17 Received: 06/21/17 (Continued) Procedure Result Reported Site Wound/Misc Culture Final (continued) 06/23/17- 1146 1. MRSA (continued) M.I.C. RX --------- ------ Oxacillin >=4 R * Quinupristin/Dalfopristin <=0.25 S Rifampin <=0.5 S Tetracycline <=1 S Doxycycline - Deduced S * Minocycline - Deduced S Trimethoprim/Sulfamethoxazole <=10 S Vancomycin 1 S Imipenem-Deduced R * Ampicillin/Sulbactam-Deduced R Cefazolin-Deduced R * These antibiotics are not available in the [facility] Formulary Contact the Microbiology Department for any additional antibiotic reporting. * ML - MAIN LAB ([facility]) . END OF REPORT * ML=Testing performed at Main Lab DEPARTMENT OF PATHOLOGY, [address] [place] [address] Panchito Steve M.D. Director [facility] # [id number] 70 SEE RESULT BELOW Name: PEYTON LOVING : [address]: Leilani Aly MD Acct: [id number] Unit: [id number] AGE: 46 Location: [facility] Re06/21/17 SEX: F Status: DEP ER SPEC: [id number] AGUILA: 06/21/1713[address]: Denny JESUS REQ: [id number] RECD: 10/10/17-1839 STATUS: RES OTHR DR: Jeovany Aly MD _ SOURCE: FACE SPDESC: ORDERED: Culture Stain COMMENTS: [id number] Procedure Result Reported Site Wound/Misc Gram Stain Preliminary 06/21/17- 2016 ML 3+ Epithelial Cells 1+ Gram Positive Cocci Wound/Misc Culture PENDING * ML - MAIN LAB ([facility]) . END OF REPORT * ML=Testing performed at Main Lab DEPARTMENT OF PATHOLOGY, [address] [place] [address] Panchito Steve M.D. Director [facility] # [id number] 71 <5.0 Negative 5.0 - 25.0 Indeterminate (Repeat testing recommended after 72 hours) >25.0 Positive Perimenopausal women can display HCG levels of up to 20 mIU/mL 72 Because ethnic data is not always readily available, this report includes an eGFR for both -Americans and non- Americans. The National Kidney Disease Education Program (NKDEP) does not endorse the use of the MDRD equation for patients that are not between the ages of 18 and 70, are , have extremes of body size, muscle mass, or nutritional status, or are non- or non-. According to the National Kidney Foundation, irrespective of diagnosis, the stage of the disease is based on the level of kidney function: Stage Description GFR(mL/min/1.73 m(2)) 1 Kidney damage with normal or decreased GFR 90 2 Kidney damage with mild decrease in GFR 60-89 3 Moderate decrease in GFR 30-59 4 Severe decrease in GFR 15-29 5 Kidney failure <15 (or dialysis) 73 Result in log IU/mL is Undetected. ADDITIONAL INFORMATION The quantification range of this assay is 15 to 100,000,000 IU/mL (1.18 log to 8.00 log IU/mL). Testing was performed using the [employer]ando HCV test ([employer] with the [employer] System. Test Performed by: [address] [address] REVISED REPORT --- Revised on 06/02/17 1629 --- HCV RNA Quant previously reported as: Test not performed HCV RNA Detect/Quant, S was cancelled on 06/02/2017 at 07:43; Test cancelled by RBS rule <[id number]> Reason: Test obsolete-cancel HCVQU, change order to HCVQN. Test Performed by: [address] [address] 74 Because ethnic data is not always readily available, this report includes an eGFR for both -Americans and non- Americans. The National Kidney Disease Education Program (NKDEP) does not endorse the use of the MDRD equation for patients that are not between the ages of 18 and 70, are , have extremes of body size, muscle mass, or nutritional status, or are non- or non-. According to the National Kidney Foundation, irrespective of diagnosis, the stage of the disease is based on the level of kidney function: Stage Description GFR(mL/min/1.73 m(2)) 1 Kidney damage with normal or decreased GFR 90 2 Kidney damage with mild decrease in GFR 60-89 3 Moderate decrease in GFR 30-59 4 Severe decrease in GFR 15-29 5 Kidney failure <15 (or dialysis) 75 Therapeutic concentration: <50 ug/mL Toxic concentration: >120 ug/mL 76 <5.0 Negative 5.0 - 25.0 Indeterminate (Repeat testing recommended after 72 hours) >25.0 Positive Perimenopausal women can display HCG levels of up to 20 mIU/mL 77 Presumptive Positive Presumptive positive results are unconfirmed. 78 Presumptive Positive Presumptive positive results are unconfirmed. 79 Presumptive Positive Presumptive positive results are unconfirmed. 80 Presumptive Positive Presumptive positive results are unconfirmed. 81 The urine specimen was tested at the listed cutoffs: Drug class test level (ng/mL) Amphetamines 500 Barbiturates 200 Benzodiazepine metabolites 200 Cocaine metabolites 150 Cannabinoids 50 Opiates 300 Pcp 25 Specimen was received without chain of custody. Results should be used for medical purposes only. 82 SEE RESULT BELOW Name: PEYTON LOVING Jhonatan : [address]: Dustin Montano MD Acct: [id number] Unit: [id number] AGE: 46 Location: [facility] Re04/24/17 SEX: F Status: ADM IN SPEC: [id number] AGUILA: 04/24/170147 IMER DR: Shiela JESUS REQ: [id number] RECD: 04/24/17 STATUS: GEOVANNA ROSA DR: Alec Huang MD _ SOURCE: URINE SPDESC: ORDERED: Urine Culture Procedure Result Reported Site Urine Culture Final 04/25/17- 0844 ML No growth of clinically significant organisms * ML - MAIN LAB ([facility]) . END OF REPORT * ML=Testing performed at Main Lab DEPARTMENT OF PATHOLOGY, [address] [place] [address] Panchito Steve M.D. Director [facility] # [id number] 83 Because ethnic data is not always readily available, this report includes an eGFR for both -Americans and non- Americans. The National Kidney Disease Education Program (NKDEP) does not endorse the use of the MDRD equation for patients that are not between the ages of 18 and 70, are , have extremes of body size, muscle mass, or nutritional status, or are non- or non-. According to the National Kidney Foundation, irrespective of diagnosis, the stage of the disease is based on the level of kidney function: Stage Description GFR(mL/min/1.73 m(2)) 1 Kidney damage with normal or decreased GFR 90 2 Kidney damage with mild decrease in GFR 60-89 3 Moderate decrease in GFR 30-59 4 Severe decrease in GFR 15-29 5 Kidney failure <15 (or dialysis) 84 Acute inflammation: >10.00 85 Serologic response to B. burgdorferi infection is not detected, but cannot rule out early infection during which low or undetectable antibody levels to B. burgdorferi may be present. If clinically indicated, a new serum specimen should be submitted in 7-14 days. Test Performed by: [facility] - [address] [address] 86 [facility] Severe Sepsis and Septic Shock Management Bundle Measure requires all lactic acids initially measuring >2.0 mmol/L be repeated. 87 REFERENCE VALUE Cutoff: 500 88 REFERENCE VALUE Cutoff: 200 89 REFERENCE VALUE Cutoff: 100 90 REFERENCE VALUE Cutoff: 150 91 Presumptive Positive Drug confirmation to follow. Presumptive Positive means that the screening method is positive, but the test needs to be run by a confirmatory method before being finalized. ADDITIONAL INFORMATION This report is intended for use in clinical monitoring or management of patients. It is not intended for use in employment-related testing. 92 REFERENCE VALUE Cutoff: 200 mg/L 93 Tylenol 3 94 Metabolite of codeine REFERENCE VALUE Cutoff: 100 95 Nola Levine MS Contin; Also a minor metabolite (10%) of codeine and can be seen in low concentrations (<2,000 ng/mL) with poppy seed ingestion. 96 Metabolite of morphine REFERENCE VALUE Cutoff: 100 97 Metabolite of heroin 98 Lortab, [place], Vicodin; Also a very minor metabolite of codeine and impurity (<1%) of oxycodone. 99 Metabolite of hydrocodone 100 Metabolite of hydrocodone 101 Dilaudid, Exalgo; Also a metabolite of hydrocodone and a minor (<5%) metabolite of morphine. 102 Metabolite of hydromorphone REFERENCE VALUE Cutoff: 100 103 Endocet, Percocet, Oxycontin 104 Metabolite of oxycodone 105 Numorphan, Opana; Also a metabolite of oxycodone. 106 Metabolite of oxymorphone REFERENCE VALUE Cutoff: 100 107 Metabolite of oxymorphone 108 Actiq, Duragesic, Fentora 109 Metabolite of fentanyl 110 Demerol 111 Metabolite of meperidine 112 Narcan 113 Metabolite of naloxone REFERENCE VALUE Cutoff: 100 114 Dolophine 115 Metabolite of methadone 116 Darvon, Darvocet 117 Metabolite of propoxyphene 118 Tradol, Ultram, Ultracet 119 Metabolite of tramadol 120 Nucynta 121 Metabolite of tapentadol 122 Metabolite of tapentadol REFERENCE VALUE Cutoff: 100 123 Buprenex, Suboxone 124 Metabolite of buprenorphine 125 Metabolite of buprenorphine 126 Test detected the presence of buprenorphine and its metabolites (norbuprenorphine, norbuprenorphine glucuronide). Suspect use of buprenorphine within the past three days. Test detected the presence of myvgtufo-1-kjby-glucuronide (metabolite of naloxone) only. Suspect use of naloxone (Narcan) within the past three days. ADDITIONAL INFORMATION This test was developed and its performance characteristics determined by [facility] in a manner consistent with CLIA requirements. This test has not been cleared or approved by the U.S. Food and Drug Administration. Test Performed by: [facility] - [address] [address] 127 REFERENCE VALUE Cutoff: 3.0 128 ADDITIONAL INFORMATION This report is intended for use in clinical monitoring and management of patients. It is not intended for use in employment-related testing. This test was developed and its performance characteristics determined by [facility] in a manner consistent with CLIA requirements. This test has not been cleared or approved by the U.S. Food and Drug Administration. Test Performed by: [facility] - [address] [address] 129 Presumptive Positive Presumptive positive results are unconfirmed. 130 Presumptive Positive Presumptive positive results are unconfirmed. 131 The urine specimen was tested at the listed cutoffs: Drug class test level (ng/mL) Amphetamines 500 Barbiturates 200 Benzodiazepine metabolites 200 Cocaine metabolites 150 Cannabinoids 50 Opiates 300 Pcp 25 Specimen was received without chain of custody. Results should be used for medical purposes only. 132 Because ethnic data is not always readily available, this report includes an eGFR for both -Americans and non- Americans. The National Kidney Disease Education Program (NKDEP) does not endorse the use of the MDRD equation for patients that are not between the ages of 18 and 70, are , have extremes of body size, muscle mass, or nutritional status, or are non- or non-. According to the National Kidney Foundation, irrespective of diagnosis, the stage of the disease is based on the level of kidney function: Stage Description GFR(mL/min/1.73 m(2)) 1 Kidney damage with normal or decreased GFR 90 2 Kidney damage with mild decrease in GFR 60-89 3 Moderate decrease in GFR 30-59 4 Severe decrease in GFR 15-29 5 Kidney failure <15 (or dialysis) 133 Therapeutic concentration: <50 ug/mL Toxic concentration: >120 ug/mL 134 Test Result Flag Unit RefValue HCV RNA Genotype 1 NS5a Drug Resist HCV NS5a Subtype 1a Daclatasvir Resistance NOT PREDICTED Ledipasvir Resistance NOT PREDICTED Ombitasvir Resistance NOT PREDICTED Elbasvir Resistance NOT PREDICTED Velpatasvir Resistance NOT PREDICTED Mutations Detected: NONE This assay is designed to amplify HCV genotypes 1a and 1b and may not successfully amplify other HCV genotypes. This test utilizes RT-PCR and DNA sequencing to detect the presence of treatment-emergent HCV NS5a variants associated with Ns5a inhibitor antiviral therapy. The clinical significance of NS5a resistance associated variants for antiviral therapy may vary according to the clinical status and antiviral treatment experience of the HCV-infected patient. Testing for NS5a resistance-associated variants prior to initiation of treatment with elbasvir plus grazoprevir in HCV genotype 1a infected patients is recommended. For further guidance consult with the package inserts of the applicable direct acting agents and guideline documents such as the AASLD and IDSA guidelines available at http://hcvguidelines.org. For additional information, please refer to http://education.Telera/faq/RMX991 This test was developed and its analytical Performance characteristics have been determined by [employer]. It has not been cleared or approved by the FDA. This assay has been validated pursuant to the CLIA regulations and is used for clinical purposes. Test Performed by: [facility] [id number] [place] [address] 135 This assay does not differentiate between reactivity due to a vaccine-induced immune response or an immune response induced by infection with HBV. 136 Desirable <150 Borderline high 150-199 High 200-499 Very High >500 137 Desirable <200 Borderline high 200-239 High >239 138 Low <40 Desirable: 40-60 High: >60 139 Desirable: <100 mg/dL Near Optimal: 100-129 mg/dL Borderline High: 130-159 mg/dL High: 160-189 mg/dL Very High: >189 mg/dL 140 no fibrosis Fibro Test Score Metavir Score 0.00-0.21 F0 no fibrosis 0.22-0.27 F0-F1 0.28-0.31 F1 minimal fibrosis 0.32-0.48 F1-F2 0.49-0.58 F2 moderate fibrosis 0.59-0.72 F3 advanced fibrosis 0.73-0.74 F3-F4 0.75-1.00 F4 severe fibrosis 141 no activity ActiTest Score Metavir Score 0.00-0.17 A0 no activity 0.18-0.29 A0-A1 0.30-0.36 A1 minimal activity 0.37-0.52 A1-A2 0.53-0.60 A2 significant activity 0.61-0.62 A2-A3 0.63-1.00 A3 severe activity 142 The reliability of results is dependent on compliance with the preanalytical and analytical conditions recommended by [employer]. The tests have to be deferred for: acute hemolysis, acute hepatitis, acute inflammation, extra hepatic cholestasis. The advice of a specialist should be sought for interpretation in chronic hemolysis and Gilbert's syndrome. The test interpretation is not validated in liver transplant patients. Isolated extreme values of one of the components should lead to caution in interpreting the results. In case of discordance between a biopsy result and a test, it is recommended to seek the advice of a specialist. The causes of these discordances could be due to a flaw of the test or to a flaw in the biopsy: i.e. a liver biopsy has a 33% variability rate for one fibrosis stage. FibroTest is interpretable for chronic hepatitis B and C, alcoholic and non alcoholic steatosis. ActiTest is interpretable for chronic hepatitis B and C. The performance characteristics have been determined by [facility]. It has not been cleared or approved by the U.S. Food and Drug Administration. Performance characteristics refer to the analytical performance of the test. Team[employer], the associated logo, HZO and all associated [employer] valerio are the registered trademarks of [employer]. All third libertarian valreio - (R) and (TM) - are the property of their respective owners. (C) [id number] [employer]. All rights reserved. Test Performed by: [employer] [id number] [place] [address] 143 Result in log IU/mL is 5.83. ADDITIONAL INFORMATION The quantification range of this assay is 15 to 100,000,000 IU/mL (1.18 log to 8.00 log IU/mL). Testing was performed by the ARMANDO AmpliPrep/ARMANDO TaqMan HCV Test, version 2.0 ([employer] Test Performed by: [facility] - [address] [address] Commutator Presser: Osmani Brush II, M.D., Ph.D. 144 Normal Range 180 to 914 Indeterminate Range 145 to 180 Deficient Range <145 145 Result in log IU/mL is 6.20. ADDITIONAL INFORMATION The quantification range of this assay is 15 to 100,000,000 IU/mL (1.18 log to 8.00 log IU/mL). Testing was performed by the ARM[employer]O AmpliPrep/ARMANDO TaqMan HCV Test, version 2.0 ([employer] Test Performed by: [place] [address] Commutator Presser: Osmani Brush II, M.D., Ph.D. 146 ADDITIONAL INFORMATION This test was performed using the Reeves RealTime HCV Genotype II assay ([employer] [place], [place]). Test Performed by: [place] [address] Commutator Presser: Osmani Brush II, M.D., Ph.D. 147 It is recognized that currently available assays for the detection of antibodies to HIV-1 and/or HIV-2 may not detect all infected individuals. HIV antibodies may be undetectable in some stages of the infection and in some clinical conditions. The performance of this assay has not been established for populations of infants or children. Assayed by Chemiluminescence Microparticle Immunoassay on the Siemens Advia Centaur CP. Values obtained with different methods or kits cannot be used interchangeably.The diagnostic specificity of the ADVIA Centaur 1/O/2 Enhanced assay in the low risk population was 99.90% (6052/6058) with a 95% confidence interval of 99.78 to 99.96%. 148 Desirable <150 Borderline high 150-199 High 200-499 Very High >500 149 Desirable <200 Borderline high 200-239 High >239 150 Low <40 Desirable: 40-60 High: >60 151 Desirable: <100 mg/dL Near Optimal: 100-129 mg/dL Borderline High: 130-159 mg/dL High: 160-189 mg/dL Very High: >189 mg/dL 152 FASTING 153 Because ethnic data is not always readily available, this report includes an eGFR for both -Americans and non- Americans. The National Kidney Disease Education Program (NKDEP) does not endorse the use of the MDRD equation for patients that are not between the ages of 18 and 70, are , have extremes of body size, muscle mass, or nutritional status, or are non- or non-. According to the National Kidney Foundation, irrespective of diagnosis, the stage of the disease is based on the level of kidney function: Stage Description GFR(mL/min/1.73 m(2)) 1 Kidney damage with normal or decreased GFR 90 2 Kidney damage with mild decrease in GFR 60-89 3 Moderate decrease in GFR 30-59 4 Severe decrease in GFR 15-29 5 Kidney failure <15 (or dialysis) 154 High reactive sample are considered positive for Hepatitis C Procedures Date Code Description Status 01/16/2019 34044 Amputation Leg Through Tibia & Fibula Completed 01/16/2019 11899 Amputation Leg Through Tibia & Fibula Completed 01/07/2019 18113 Negative Pressure Wound Therapy Less Than 50 Square CM Completed 01/07/2019 86471 Debridement Skin,& sq Tissue Completed 01/07/2019 00332 Debridement Skin,& sq Tissue Completed 01/04/2019 56054 Deep Dissection Below Fascia Foot Infection Bursal Space Completed Mult 10/20/2018 57100 EKG, Interpretation Only Completed 10/08/2018 13423 Secondary Closure Of Surgical Wound Or Dehiscence Completed Extensive Or Co 10/08/2018 44954 Secondary Closure Of Surgical Wound Or Dehiscence Completed Extensive Or Co 10/05/2018 90463 Secondary Closure Of Surgical Wound Or Dehiscence Completed Extensive Or Co 10/05/2018 72240 Secondary Closure Of Surgical Wound Or Dehiscence Completed Extensive Or Co 10/05/2018 41459 Negative Pressure Wound Therapy Less Than 50 Square CM Completed 10/05/2018 22989 Negative Pressure Wound Therapy Less Than 50 Square CM Completed 10/02/2018 90211 Negative Pressure Wound Therapy Less Than 50 Square CM Completed 10/02/2018 19091 Negative Pressure Wound Therapy Less Than 50 Square CM Completed 10/02/2018 03870 Debridement Skin, Subcutaneous Tissue & Muscle Completed 10/02/2018 75655 Debridement Skin, Subcutaneous Tissue & Muscle Completed 09/28/2018 88805 Debridement Tissue/Muscle/Bone Completed 09/28/2018 69483 Debridement Tissue/Muscle/Bone Completed 09/28/2018 19371 Debridement,Bone,Epidermis/Dermis/Tissue/Muscle, Addtl 20 Completed SQ CM 09/28/2018 15415 Debridement,Bone,Epidermis/Dermis/Tissue/Muscle, Addtl 20 Completed SQ CM 09/28/2018 55611 Debridement,Bone,Epidermis/Dermis/Tissue/Muscle, Addtl 20 Completed SQ CM 09/28/2018 42551 Debridement,Bone,Epidermis/Dermis/Tissue/Muscle, Addtl 20 Completed SQ CM 09/28/2018 52286 Debridement,Bone,Epidermis/Dermis/Tissue/Muscle, Addtl 20 Completed SQ CM 09/28/2018 79108 Debridement,Bone,Epidermis/Dermis/Tissue/Muscle, Addtl 20 Completed SQ CM 09/28/2018 58977 Debridement,Bone,Epidermis/Dermis/Tissue/Muscle, Addtl 20 Completed SQ CM 09/28/2018 84022 Debridement,Bone,Epidermis/Dermis/Tissue/Muscle, Addtl 20 Completed SQ 09/28/2018 64800 Debridement,Bone,Epidermis/Dermis/Tissue/Muscle, Addtl 20 Completed SQ 09/28/2018 86514 Debridement,Bone,Epidermis/Dermis/Tissue/Muscle, Addtl 20 Completed SQ CM 09/28/2018 41441 Debridement,Bone,Epidermis/Dermis/Tissue/Muscle, Addtl 20 Completed SQ CM 09/28/2018 78543 Debridement,Bone,Epidermis/Dermis/Tissue/Muscle, Addtl 20 Completed SQ 09/28/2018 64459 Debridement,Bone,Epidermis/Dermis/Tissue/Muscle, Addtl 20 Completed [facility] 09/28/2018 04395 Negative Pressure Wound Therapy Greater Than 50CM Completed 09/28/2018 50019 Negative Pressure Wound Therapy Greater Than 50CM Completed 09/26/2018 40555 ECHO Transthorasic Realtime 2D W Doppler & Color Flow Hosp Completed 09/25/2018 31335 Debridement Skin, Subcutaneous Tissue & Muscle Completed 09/25/2018 71661 Debridement Skin, Subcutaneous Tissue & Muscle Completed 09/25/2018 81933 Debridement Muscle/Fascia,Epidermis/Dermis/Tissue,Addtl 20 Completed SQ 09/25/2018 71456 Debridement Muscle/Fascia,Epidermis/Dermis/Tissue,Addtl 20 Completed [facility] 09/25/2018 68143 Debridement Muscle/Fascia,Epidermis/Dermis/Tissue,Addtl 20 Completed SQ 09/25/2018 28427 Debridement Muscle/Fascia,Epidermis/Dermis/Tissue,Addtl 20 Completed SQ 09/21/2018 56729 Debridement,Bone,Epidermis/Dermis/Tissue/Muscle, Addtl 20 Completed SQ CM 09/21/2018 43437 Debridement,Bone,Epidermis/Dermis/Tissue/Muscle, Addtl 20 Completed SQ CM 09/21/2018 13012 Debridement,Bone,Epidermis/Dermis/Tissue/Muscle, Addtl 20 Completed SQ CM 09/21/2018 34607 Debridement,Bone,Epidermis/Dermis/Tissue/Muscle, Addtl 20 Completed SQ CM 09/21/2018 97023 Debridement,Bone,Epidermis/Dermis/Tissue/Muscle, Addtl 20 Completed SQ CM 09/21/2018 21459 Debridement,Bone,Epidermis/Dermis/Tissue/Muscle, Addtl 20 Completed SQ CM 09/21/2018 73667 Debridement,Bone,Epidermis/Dermis/Tissue/Muscle, Addtl 20 Completed [facility] 09/21/2018 41094 Debridement,Bone,Epidermis/Dermis/Tissue/Muscle, Addtl 20 Completed [facility] 09/21/2018 74044 Debridement,Bone,Epidermis/Dermis/Tissue/Muscle, Addtl 20 Completed [facility] 09/21/2018 81853 Debridement,Bone,Epidermis/Dermis/Tissue/Muscle, Addtl 20 Completed [facility] 09/21/2018 97258 Debridement,Bone,Epidermis/Dermis/Tissue/Muscle, Addtl 20 Completed [facility] 09/21/2018 27513 Debridement,Bone,Epidermis/Dermis/Tissue/Muscle, Addtl 20 Completed [facility] 09/21/2018 63202 Debridement,Bone,Epidermis/Dermis/Tissue/Muscle, Addtl 20 Completed [facility] 09/21/2018 89890 Debridement,Bone,Epidermis/Dermis/Tissue/Muscle, Addtl 20 Completed [facility] 09/21/2018 46680 Debridement,Bone,Epidermis/Dermis/Tissue/Muscle, Addtl 20 Completed [facility] 09/21/2018 79127 Debridement,Bone,Epidermis/Dermis/Tissue/Muscle, Addtl 20 Completed [facility] 09/21/2018 27481 Debridement,Bone,Epidermis/Dermis/Tissue/Muscle, Addtl 20 Completed [facility] 09/21/2018 40387 Debridement Tissue/Muscle/Bone Completed 09/21/2018 35156 Debridement Tissue/Muscle/Bone Completed 09/21/2018 09509 Negative Pressure Wound Therapy Greater Than 50CM Completed 09/21/2018 55630 Negative Pressure Wound Therapy Greater Than 50CM Completed 09/21/2018 20210 Negative Pressure Wound Therapy Greater Than 50CM Completed 09/21/2018 84485 Negative Pressure Wound Therapy Greater Than 50CM Completed 09/21/2018 24407 Secondary Closure Of Surgical Wound Or Dehiscence Completed Extensive Or Co 09/21/2018 78482 Secondary Closure Of Surgical Wound Or Dehiscence Completed Extensive Or Co 09/21/2018 66855 Secondary Closure Of Surgical Wound Or Dehiscence Completed Extensive Or Co 09/21/2018 83434 Secondary Closure Of Surgical Wound Or Dehiscence Completed Extensive Or Co 09/21/2018 92949 Debridement,Bone,Epidermis/Dermis/Tissue/Muscle, Addtl 20 Completed SQ CM 09/21/2018 92259 Debridement,Bone,Epidermis/Dermis/Tissue/Muscle, Addtl 20 Completed SQ CM 09/21/2018 97393 Debridement,Bone,Epidermis/Dermis/Tissue/Muscle, Addtl 20 Completed SQ CM 09/21/2018 20209 Debridement,Bone,Epidermis/Dermis/Tissue/Muscle, Addtl 20 Completed SQ CM 09/21/2018 48861 Debridement,Bone,Epidermis/Dermis/Tissue/Muscle, Addtl 20 Completed SQ CM 09/21/2018 92109 Debridement,Bone,Epidermis/Dermis/Tissue/Muscle, Addtl 20 Completed SQ CM 09/21/2018 35420 Debridement,Bone,Epidermis/Dermis/Tissue/Muscle, Addtl 20 Completed SQ CM 09/21/2018 79483 Debridement,Bone,Epidermis/Dermis/Tissue/Muscle, Addtl 20 Completed SQ CM 09/21/2018 41672 Debridement,Bone,Epidermis/Dermis/Tissue/Muscle, Addtl 20 Completed SQ CM 09/21/2018 65534 Debridement,Bone,Epidermis/Dermis/Tissue/Muscle, Addtl 20 Completed SQ CM 09/21/2018 07437 Debridement,Bone,Epidermis/Dermis/Tissue/Muscle, Addtl 20 Completed SQ CM 09/21/2018 34177 Debridement,Bone,Epidermis/Dermis/Tissue/Muscle, Addtl 20 Completed SQ CM 09/19/2018 00840 Decompression Fasciotomy Leg; Anterior And/Or Lateral,& Completed Posterior 09/19/2018 27527 Decompression Fasciotomy Leg; Anterior And/Or Lateral,& Completed Posterior 07/11/2017 46753 Arthroplasty Patella W/Prosthesis Completed 07/11/2017 49299 Arthroplasty Patella W/Prosthesis Completed 06/27/2017 00104 EKG Tracing & Interpretation Completed 01/11/2017 90981 Walking Cast Completed 03/17/2016 01212 Inject/Drain Joint/Bursa Major W/O US Completed Encounters Type Date Location Provider Dx Diagnosis Office Visit 01/25/2019 [facility] Ava Avila, M86.672 Other chronic 10:02a leandro FarleyO. 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 Ava I73.9 Peripheral Assocleandro D.O. 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 Dionisio Curiel I95.9 Hypotension, 10:02a Assleandro reid MD unspecified Hospitalists M86.9 Osteomyelitis, unspecified I73.9 Peripheral vascular disease, unspecified F41.9 Anxiety disorder, unspecified Z89.512 Acquired absence of left leg below knee Office Visit 01/22/2019 [facility] Dionisio Curiel I95.9 Hypotension, 10:01a leandro Farley MD unspecified Hospitalists M86.9 Osteomyelitis, unspecified F41.9 Anxiety disorder, unspecified I73.9 Peripheral vascular disease, unspecified Z89.512 Acquired absence of left leg below knee Office Visit 01/21/2019 10:00a 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 Radha Sandyhn, I95.9 Hypotension, 9:59a Assleandro reid M.D. unspecified Hospitalists F41.9 Anxiety disorder, unspecified Z89.512 Acquired absence of left leg below knee Office Visit 01/17/2019 [facility] Radha Jordon, F41.9 Anxiety disorder, 9:59a Assoc,pc M.D. unspecified Hospitalists F14.20 Cocaine dependence, uncomplicated F12.20 Cannabis dependence, uncomplicated I95.9 Hypotension, unspecified I73.9 Peripheral vascular disease, unspecified Z89.512 Acquired absence of left leg below knee Z79.891 senior living (current) use of opiate analgesic Office Visit 01/16/2019 [facility] Radha Jordon, F41.9 Anxiety disorder, 9:58a Assocpc M.D. 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 Radha Jordon, F41.9 Anxiety disorder, 9:58a Assleandro reid M.D. unspecified Hospitalists M86.9 Osteomyelitis, unspecified F12.20 Cannabis dependence, uncomplicated F14.20 Cocaine dependence, uncomplicated I95.9 Hypotension, unspecified Z79.891 senior living (current) use of opiate analgesic Office Visit 01/14/2019 [facility] Radha Ruvalcaba, F41.9 Anxiety disorder, 9:57a leandro Farley M.D. unspecified Hospitalists M86.9 Osteomyelitis, unspecified F12.20 Cannabis dependence, uncomplicated F14.20 Cocaine dependence, uncomplicated I95.9 Hypotension, unspecified Z79.891 senior living (current) use of opiate analgesic Office Visit 01/13/2019 [facility] Radha Ruvalcaba, F41.9 Anxiety disorder, 9:57a leandro Farley M.D. 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 Kay K59.00 Constipation, 9:56a leandro Farley, DO unspecified Hospitalists M86.9 Osteomyelitis, unspecified I73.9 Peripheral vascular disease, unspecified Z79.891 senior living (current) use of opiate analgesic Office 01/12/2019 [facility] M86.172 Other acute Visit 7:46a Infectious Zoran, BRANCH SERVICE SPECIALIST osteomyelitis, Diseases left ankle and foot Office 01/11/2019 [facility] Kay Horton, K59.00 Constipation, Visit 9:56a leandro Farley DO unspecified Hospitalists M86.9 Osteomyelitis, unspecified I73.9 Peripheral vascular disease, unspecified Z79.891 senior living (current) use of opiate analgesic Office Visit 01/10/2019 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 Kay K59.00 Constipation, 9:55a Assoc,pc DO Sol unspecified Hospitalists M86.9 Osteomyelitis, unspecified I73.9 Peripheral vascular disease, unspecified Z79.891 senior living (current) use of opiate analgesic Office Visit 01/09/2019 [facility] L03.116 Cellulitis of 7:45a For Infectious Meehan, BRANCH SERVICE SPECIALIST left lower limb Diseases M86.172 Other acute osteomyelitis, left ankle and foot Office Visit 01/08/2019 [facility] Radha Ruvalcaba, F41.9 Anxiety disorder, 9:55a Assoc,pc M.D. unspecified Hospitalists M86.672 Other chronic osteomyelitis, left ankle and foot G89.29 Other chronic pain F12.20 Cannabis dependence, uncomplicated F14.20 Cocaine dependence, uncomplicated I95.9 Hypotension, unspecified Z79.891 senior living (current) use of opiate analgesic Office Visit 01/08/2019 [facility] M86.172 Other acute 7:41a For Infectious Meehan, BRANCH SERVICE SPECIALIST osteomyelitis, left Diseases ankle and foot L03.116 Cellulitis of left lower limb Office Visit 01/07/2019 [facility] Radha Ruvalcaba, F41.9 Anxiety disorder, 9:54a Assoc,leandro Alvarez.D. unspecified Hospitalists M86.672 Other chronic osteomyelitis, left ankle and foot G89.29 Other chronic pain F12.20 Cannabis dependence, uncomplicated F14.20 Cocaine dependence, uncomplicated Z79.891 senior living (current) use of opiate analgesic Office Visit 01/06/2019 [facility] Radha Ruvalcaba, F41.9 Anxiety disorder, 9:54a Assoc,leandro Alvarez.D. unspecified Hospitalists M86.672 Other chronic osteomyelitis, left ankle and foot G89.29 Other chronic pain F12.20 Cannabis dependence, uncomplicated F14.20 Cocaine dependence, uncomplicated Z79.891 senior living (current) use of opiate analgesic Office Visit 01/05/2019 [facility] Radha Ruvalcaba, F41.9 Anxiety disorder, 9:53a Assoc,leandro M.D. unspecified Hospitalists M86.672 Other chronic osteomyelitis, left ankle and foot F12.20 Cannabis dependence, uncomplicated F14.20 Cocaine dependence, uncomplicated Office Visit 01/04/2019 9:53a [facility] Venus L03.116 Cellul[facility] of Assoc,pc Rooth, DO left lower limb Hospitalists L97.529 Non-pressure chronic ulcer oth prt left foot w unsp severity R45.851 Suicidal ideations S92.352A Disp fx of fifth metatarsal bone, left foot, init F12.90 Cannabis use, unspecified, uncomplicated F14.10 Cocaine abuse, uncomplicated Office Visit 10/11/2018 9:38a [facility] Mary Dill, N17.9 Acute kidney Assoc,leandro BRIGGS failure, Hospitalists unspecified T79.A0xA Compartment syndrome, unspecified, initial encounter M62.82 Rhabdomyolysis L03.116 Cellulitis of left lower limb D64.9 Anemia, unspecified F19.188 Oth psychoactive substance abuse w oth disorder F32.9 Major depressive disorder, single episode, unspecified Office Visit 10/10/2018 9:38a [facility] Jas N17.9 Acute kidney Assoc,leandro Siddiqui M.D. failure, Hospitalists unspecified M62.82 Rhabdomyolysis D64.9 Anemia, unspecified N89.8 Other specified noninflammatory disorders of vagina F11.90 Opioid use, unspecified, uncomplicated [facility],leandro Siddiqui M.D. failure, Hospitalists unspecified M62.82 Rhabdomyolysis F11.90 Opioid use, unspecified, uncomplicated Office Visit 10/08/2018 9:37a [facility] Mary Renteria, N17.9 Acute kidney Assoc,leandro BRIGGS failure, Hospitalists unspecified M62.82 Rhabdomyolysis D64.9 Anemia, unspecified F19.20 Other psychoactive substance dependence, uncomplicated L03.116 Cellulitis of left lower limb Office Visit 10/07/2018 9:37a [facility] Dionisio Curiel N17.0 Acute kidney Assoc,leandro Leal MD failure with Hospitalists tubular necrosis D64.9 Anemia, unspecified M62.82 Rhabdomyolysis Office Visit 10/06/2018 9:36a [facility] Dionisio Curiel N17.0 Acute kidney Assoc,leandro Leal MD failure with Hospitalists tubular necrosis D64.9 Anemia, unspecified M62.82 Rhabdomyolysis Office Visit 10/05/2018 9:36a [facility] Dionisio Curiel N17.0 Acute kidney Assoc,leandro Leal MD failure with Hospitalists tubular necrosis M62.82 Rhabdomyolysis D64.9 Anemia, unspecified Office Visit 10/04/2018 9:36a [facility] Dionisio Curiel N17.0 Acute kidney Assoc,leandro Leal MD failure with Hospitalists tubular necrosis M62.82 Rhabdomyolysis D64.9 Anemia, unspecified Office Visit 2018 [facility] Jeovany D. N17.9 Acute kidney 9:35a Assoc,leandro Huang M.D.,FACP failure, Hospitalists unspecified D64.9 Anemia, unspecified M62.82 Rhabdomyolysis Office Visit 10/02/2018 9:35a [facility] Jeovany D. N17.0 Acute kidney Assoc,leandro Huang M.D.,FACP failure with Hospitalists tubular necrosis M62.82 Rhabdomyolysis D64.9 Anemia, unspecified Office Visit 10/01/2018 [facility] Jeovany D. N17.9 Acute kidney 9:35a Assoc,leandro Huang M.D.,FACP failure, Hospitalists unspecified D64.9 Anemia, unspecified M62.82 Rhabdomyolysis Office Visit 09/30/2018 9:34a [facility] Jeovany D. M62.82 Rhabdomyolysis Assoc,leandro Huang M.D.,FACP Hospitalists N17.9 Acute kidney failure, unspecified D64.9 Anemia, unspecified Office Visit 09/29/2018 9:34a [facility] N17.9 Acute kidney Assoc,leandro Ramirez, BRANCH SERVICE SPECIALIST failure, Hospitalists unspecified D64.9 Anemia, unspecified M62.82 Rhabdomyolysis R60.9 Edema, unspecified Office Visit 09/29/2018 10:38a [facility] Miguel Newberry M62.82 Rhabdomyolysis Infectious Marysol Menon Diseases N17.9 Acute kidney failure, unspecified T79.A22D Traumatic compartment syndrome of left lower extremity, subs Office Visit 09/28/2018 9:33a [facility] N17.9 Acute kidney Assoc,leandro Ramirez, BRANCH SERVICE SPECIALIST failure, Hospitalists unspecified D64.9 Anemia, unspecified F32.9 Major depressive disorder, single episode, unspecified M62.82 Rhabdomyolysis Office Visit 09/27/2018 9:33a [facility] D64.9 Anemia, Assoc,leandro Ramirez, BRANCH SERVICE SPECIALIST unspecified Hospitalists N17.9 Acute kidney failure, unspecified T79.A0xA Compartment syndrome, unspecified, initial encounter M62.82 Rhabdomyolysis Office Visit 09/26/2018 9:33a [facility] N17.9 Acute kidney Assoc,leandro Pichardo Doto, failure, Hospitalists BRANCH SERVICE SPECIALIST unspecified T79.A0xA Compartment syndrome, unspecified, initial encounter M62.82 Rhabdomyolysis F19.188 Oth psychoactive substance abuse w oth disorder Office Visit 09/26/2018 2:22p [facility] Nephrology Tiff N17.9 Acute kidney MD Sanchez failure, unspecified M62.82 Rhabdomyolysis Office Visit 09/26/2018 [facility] Miguel Newberry T79.A22D Traumatic 10:25a For Infectious Marysol Menon compartment Diseases syndrome of left lower extremity, subs N17.9 Acute kidney failure, unspecified M62.82 Rhabdomyolysis Office Visit 09/25/2018 [facility] T79.A0xA Compartment 9:32a Assocleandro syndrome, Hospitalists Grant, BRANCH SERVICE SPECIALIST unspecified, initial encounter N17.0 Acute kidney failure with tubular necrosis M62.82 Rhabdomyolysis L03.116 Cellulitis of left lower limb [facility]A22 Nontraumatic 9:32a leandro Farley M.D. compartment Hospitalists syndrome of left lower extremity N17.9 Acute kidney failure, unspecified M62.82 Rhabdomyolysis Z79.891 senior living (current) use of opiate analgesic Office [facility] M79.A22 Nontraumatic 9:32a leandro Farley M.D. compartment Hospitalists syndrome of left lower extremity N17.9 Acute kidney failure, unspecified M62.82 Rhabdomyolysis Office Visit [facility]22[facility] M79.A22 Nontraumatic 9:31a leandro Farley M.D. compartment Hospitalists syndrome of left lower extremity N17.9 Acute kidney failure, unspecified M62.82 Rhabdomyolysis Office Visit 09/21/2018 [facility] Radha M79.A22 Nontraumatic 9:25a leandro Farley M.D. compartment Hospitalists syndrome of left lower extremity N17.9 Acute kidney failure, unspecified Office Visit 09/20/2018 [facility] Jerrod Rossi, T79.A0xA Compartment 9:25a leandro Farley MD syndrome, Hospitalists unspecified, initial encounter N17.9 Acute kidney failure, unspecified M62.82 Rhabdomyolysis F14.188 Cocaine abuse with other cocaine-induced disorder F19.188 Oth psychoactive substance abuse w oth disorder Office Visit 11/22/2017 9:30a [facility] Miguel Newberry Z86.19 Personal history Infectious Marysol eMnon of other Diseases infectious and parasitic diseases Z09 Encntr for f/u exam aft trtmt for cond oth than malig neoplm Office Visit 11/17/2017 8:20a [facility] Internal Jessica J30.9 Allergic rhinitis, Medicine - Swenson, BR[employer]CH SERVICE SPECIALIST unspecified [address] M25.561 Pain in right knee R94.6 Abnormal results of thyroid function studies Office Visit 10/05/2017 9:00a [facility] Internal Junior Gonzales NP M25.561 Pain in right Medicine knee F33.0 Major depressive disorder, recurrent, mild Office Visit 06/27/2017 1:20p [facility] Internal Junior Gonzales, Z01.818 Encounter for other Medicine BR[employer]CH SERVICE SPECIALIST preprocedural examination M17.11 Unilateral primary osteoarthritis, right knee B18.2 Chronic viral hepatitis C F17.210 Nicotine dependence, cigarettes, uncomplicated F33.3 Major depressv disorder, recurrent, severe w psych symptoms Office Visit 06/01/2017 Raine Cedeno M17.11 Unilateral primary 11:30a [facility] Sweeney osteoarthritis, C.M.A. right knee Z71.89 Other specified counseling Office Visit 03/09/2017 Raine Cedeno M17.11 Unilateral primary 9:30a [facility] Sweeney osteoarthritis, C.M.A. right knee Office Visit 01/31/2017 [facility] Internal Jeovany Newberry M76.51 Patellar tendinitis, 4:20p Medicine - [place], right knee Rd M.D.,FACP E05.90 Thyrotoxicosis, unsp without thyrotoxic crisis or storm G89.4 Chronic pain syndrome Office Visit 01/21/2017 1:45p Orthopedic Jorge Luis Kelley.Sheldon [facility] Wen tendinitis, left C.M.A. leg Office Visit 01/19/2017 9:30a Orthopedic Wilian Kelley.51 Patellar [facility] Sweeney tendinitis, right C.M.A. knee Office Visit 01/12/2017 9:00a [facility] Internal Jeovany Newberry M76.62 [facility] Medicine - [place], tendinitis, left Rd M.D.,FACP leg B18.2 Chronic viral hepatitis C F33.3 Major depressv disorder, recurrent, severe w psych symptoms E05.90 Thyrotoxicosis, unsp without thyrotoxic crisis or storm Office Visit 01/11/2017 11:50a Orthopedic Jorge Luis Keys [facility] Wen tendinitis, left C.M.A. leg Office Visit 01/07/2017 9:15a Orthopedic Jorge Luis Kelley.Sheldon [facility] Wen tendinitis, left C.M.A. leg Office Visit 10/14/2016 4:00p [facility] Richard Newberry B18.2 Chronic viral Infectious Marysol Menon hepatitis C Diseases Office Visit 09/24/2016 1:00p Orthopedic Jorge Luis Keys [facility] Wen tendinitis, left C.M.A. leg Office Visit 09/23/2016 3:40p [facility] Internal Jeovany Newberry F10.21 Alcohol Medicine - [place], dependence, in Rd M.D.,FACP remission F33.3 Major depressv disorder, recurrent, severe w psych symptoms F17.210 Nicotine dependence, cigarettes, uncomplicated Z12.31 Encntr screen mammogram for malignant neoplasm of breast L70.0 Acne vulgaris Office Visit 09/23/2016 3:00p [facility] Richard Newberry B18.2 Chronic viral Infectious Marysol Menon hepatitis C Diseases Office Visit 09/15/2016 11:00a Orthopedic Ludmila Goldberg [facility] tendinitis, C.M.A. left leg M22.41 Chondromalacia patellae, right knee Office Visit 08/20/2016 11:40a [facility] Internal Jeovany Newberry F10.21 Alcohol Medicine - [place] Huang,FACP dependence, in [address] remission F33.3 Major depressv disorder, recurrent, severe w psych symptoms B18.2 Chronic viral hepatitis C F17.210 Nicotine dependence, cigarettes, uncomplicated Z23 Encounter for immunization Office Visit 03/17/2016 9:00a Orthopedic Merlyn M76.62 [facility] [place] Luis tendinitis, left C.M.A. leg M22.2x1 Patellofemoral disorders, right knee M22.2x2 Patellofemoral disorders, left knee Office Visit 11/27/2015 Orthopedic Wilian M22.2x1 Patellofemoral 11:00a [facility] Sweeney disorders, right C.M.A. 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 F14.14 Cocaine abuse with cocaine-induced mood disorder F17.210 Nicotine dependence, cigarettes, uncomplicated F10.10 Alcohol abuse, uncomplicated E66.3 Overweight Z11.3 Encntr screen for infections w sexl mode of transmiss M25.561 Pain in right knee M25.562 Pain in left knee M79.674 Pain in right toe(s) Office Visit 10/18/2015 7:00a Orthopedic Ghada Timmy, M25.572 [facility] foot Plan of Treatment Future Appointment(s):02/14/2019 2:15 pm - Cj Appiah MD at [facility].ASandra02/07/2019 - Cj Appiah MDZ89.512 Acquired absence of left leg below kneeFollow up:Follow Up: 1 week
[2019-02-11] MEDS ORDERED: traMADol TAB* 50 MG PO ONE (16:51)
[2019-02-11] MEDS ORDERED: HYDROcodone/ACETAMIN 5-325 MG* 1 TAB PO ONE (17:19)
--- NOTE | 2019-02-11 17:20 | ED ---
Lower Extremity - HPI Summary HPI Summary: Patient is a 48-year-old female who presents to the ED with a left below-knee amputation pain after landing directly over the area. She is stating she is unable to return home as she cannot we'll her wheelchair through her trailer. Since she is unable to use her wheelchair in her trailer, she has been staying with a friend and continues to fall. She is requesting to be admitted to the hospital so she is able to find rehabilitation. She is also endorsing pain, currently on methadone and states she is not taking methadone for opioid abuse and is requesting an opioid. She states she is allergic to tramadol. She denies any other symptoms at this time. - History of Current Complaint Chief Complaint: EDExtremityLower Stated Complaint: FALL LEFT STUMP PAIN PER PT Time Seen by Provider: 02/11/19 15:19 Hx Obtained From: Patient Mechanism Of Injury: Blunt Trauma Onset of Pain: Minutes Onset/Duration: Minutes Severity Initially: Moderate Severity Currently: Moderate Pain Intensity: 10 Pain Scale Used: 0-10 Numeric Timing: Constant Location: Is Discrete @ - left knee pain Character Of Pain: Aching Associated Signs And Symptoms: Negative: Swelling, Redness, Bruising, Fever, Weakness - Allergies/Home Medications Allergies/Adverse Reactions: Allergies Allergy/AdvReac Type Severity Reaction Status Date / Time [facility] Allergy Unknown Rash Verified 02/11/19 14:34 omeprazole Allergy See Comment Verified 02/11/19 14:34 tramadol AdvReac See Comment Verified 02/11/19 14:34 Home Medications: Home Medications FLUoxetine CAP* [Prozac CAP*] 30 mg PO DAILY 02/11/19 [History Confirmed ] traZODone TAB* [Desyrel TAB*] 300 mg PO BEDTIME MDD 100 mg 02/11/19 [History Confirmed 02/11/19] PMH/Surg Hx/FS Hx/Imm Hx Previously Healthy: Yes Endocrine/Hematology History: Reports: Hx Thyroid Disease - thyrotoxosis, Other Endocrine/Hematological Disorders Denies: Hx Diabetes Cardiovascular History: Reports: Hx Hypotension, Hx Peripheral Vascular Disease Denies: Hx Hypertension, Hx Pacemaker/ICD Respiratory History: Reports: Hx Asthma, Hx Chronic Bronchitis, Other Respiratory Problems/Disorders - 30 YR SMOKING HX GI History: Reports: Hx Gastroesophageal Reflux Disease History: Reports: Other Problems/Disorders - acute renal failure Musculoskeletal History: Reports: Hx Arthritis, Hx Orthopedic Injury - knee replacement Jun 2017, Hx Tendonitis - LEFT ACHILLES TENDONITIS, WEARS BRACE, MUCH BETTER, Other Musculoskeletal History - chronic LE pain Sensory History: Denies: Hx Contacts or Glasses, Hx Hearing Aid Opthamlomology History: Denies: Hx Contacts or Glasses Neurological History: Denies: Other Neuro Impairments/Disorders Psychiatric History: Reports: Hx Anxiety, Hx Attention Deficit Hyperactivity Disorder, Hx Depression - Major depressive d/o, Hx Post Traumatic Stress Disorder, Hx Inpatient Treatment, Hx Community Mental Health Tx, Hx Suicide Attempt, Hx Substance Abuse, Other Psychiatric Issues/Disorders - Cluster B personality d/o Denies: Hx Eating Disorder, Hx Panic Disorder, Hx Schizophrenia, Hx Bipolar Disorder, Hx of Violent Episodes Against Others - Surgical History Surgery Procedure, Year, and Place: LLE multiple fasciotomies, r knee replacement, OR wound debridement LLE Hx Anesthesia Reactions: No - Immunization History Hx Pertussis Vaccination: No Immunizations Up to Date: Yes Infectious Disease History: No Infectious Disease History: Reports: Hx Hepatitis - Hepatitis C, Hx of Known/ Suspected MRSA - 06/21/17 Face Denies: Hx Clostridium Difficile, Hx Human Immunodeficiency Virus (HIV), Traveled Outside the [place] in Last 30 Days - Family History Known Family History: Negative: Cardiac Disease, Diabetes - Social History Occupation: Unemployed Lives: Alone Alcohol Use: None Alcohol Amount: 6-12 beers a day Hx Substance Use: Yes - reports polysubstance self-medication Substance Use Type: Reports: None Substance Use Comment - Amount & Last Used: no substance abuse past 4 weeks - pt drug court mandated Hx Tobacco Use: Yes Smoking Status (MU): Light Every Day Tobacco Smoker Type: Cigarettes Amount Used/How Often: half a pack a day in the last 30 days Length of Time of Smoking/Using Tobacco: 30 years Have You Smoked in the Last Year: Yes Review of Systems Constitutional: Negative Negative: Fever, Chills, Fatigue, Skin Diaphoresis Negative: Palpitations, Chest Pain Negative: Shortness Of Breath, Cough Genitourinary: Negative Positive: no symptoms reported, see HPI Positive: Arthralgia - left knee pain. Negative: Myalgia Skin: Negative Neurological: Negative All Other Systems Reviewed And Are Negative: Yes Physical Exam Triage Information Reviewed: Yes Vital Signs On Initial Exam: Initial Vitals Temp Pulse Resp BP Pulse Ox 97.8 F 84 22 120/82 100 02/11/19 14:29 02/11/19 14:29 02/11/19 14:29 02/11/19 14:29 02/11/19 14:29 Vital Signs Reviewed: Yes Appearance: Positive: Well-Appearing, Well-Nourished Skin: Positive: Warm, Skin Color Reflects Adequate Perfusion Head/Face: Positive: Normal Head/Face Inspection Eyes: Positive: EOMI, Conjunctiva Clear - Over the scheduling Neck: Positive: Supple, No Lymphadenopathy Respiratory/Lung Sounds: Positive: Clear to Auscultation Cardiovascular: Positive: RRR, Pulses are Symmetrical in both Upper and Lower Extremities Musculoskeletal: Positive: Pain @ - left knee Neurological: Positive: Sensory/Motor Intact, Alert, Oriented to Person Place, Time, Speech Normal Psychiatric: Positive: Affect/Mood Appropriate AVPU Assessment: Alert Diagnostics - Vital Signs Vital Signs Temp Pulse Resp BP Pulse Ox 02/11/19 14:29 97.8 F 84 22 120/82 100 - Laboratory Lab Statement: Any lab studies that have been ordered have been reviewed, and results considered in the medical decision making process. Lower Extremity Course/Dx - Course Course Of Treatment: During the course of treatment, the patient's evaluated for pain over the below the knee amputation site and she fell out of her wheelchair landing directly onto this area. There is no signs of trauma, ecchymosis or erythema. Patient is complaining of 10/10 pain and is tearful on arrival. She is requesting to be admitted to the hospital so she is able to find a rehabilitation facility. X-ray obtained which shows no findings. Discussed case with hospitalist, Dr. Avila who states she is not eligible for a rehab facility. This was discussed with the patient and I have advised the patient to request this from an outpatient status as she would be admitted custodially otherwise. She is OK with this plan and discharge. She is given hydrocodone 5mg while in the ED. - Diagnoses Provider Diagnoses: Pain in left knee Discharge - Sign-Out/Discharge Documenting (check all that apply): Patient Departure Patient Received Moderate/Deep Sedation with Procedure: No - Discharge Plan Condition: Stable Disposition: HOME Referrals: Sada Rosenberg MD [Primary Care Provider] - Additional Instructions: Please follow up with PCP Continue to reach out to social work - Billing Disposition and Condition Condition: STABLE Disposition: Home
[2019-02-11 17:45] VITALS: BP 140/91
== END 2019-02-11 17:44 | disposition home or self-care (01) ==
LOC: ED 14:28
DX: M25.562 Pain in left knee (principal); Z89.512 Acquired absence of left leg below knee; Z91.81 History of falling; N17.9 Acute kidney failure, unspecified; F41.9 Anxiety disorder, unspecified; F32.9 Major depressive disorder, single episode, unspecified; Z96.651 Presence of right artificial knee joint; Z88.5 Allergy status to narcotic agent; Z88.8 Allergy status to other drugs, medicaments and biological substances; F17.210 Nicotine dependence, cigarettes, uncomplicated
CPT/HCPCS: 99283; A9270-GY

== ENCOUNTER 2019-07-06 13:49 | Inpatient (IN) | payer MEDICARE, MEDICAID ==
--- NOTE | 2019-07-06 14:21 | ED ---
Psychiatric Complaint - HPI Summary HPI Summary: The patient is a 48 y/o F presenting to [facility] with a chief complaint of gradual onset of suicidality with a plan over the last two days. She reports that immediately prior to onset, she had her medications changed from which she was taken on Prozac and placed on Cymbalta. She now has a plan to take a lot of pills and drink. She states she is in a bad place and doesnt want to be. She has had a similar episode before but notes it was many years ago. She has not had any alcohol or substances today. She is not in any pain. PMHx: anxiety, ADHD, depression, PTSD, inpatient treatment, suicide attempt, substance abuse, thyroid disease, hypotension, PVD, asthma, chronic bronchitis, GERD, acute renal failure, left below the knee amputation following compartment syndrome and multiple fasciotomies, MRSA, hepatitis C. Current every day smoker, occasional EtOH, marijuana use. Medications reviewed. Allergies noted. - History Of Current Complaint Chief Complaint: EDMentalHealth Time Seen by Provider: 07/06/19 14:11 Hx Obtained From: Patient Onset/Duration: Gradual Onset, Lasting Days - two, Still Present Timing: Days Severity Initially: Mild Severity Currently: Moderate Aggravating Factor(s): Other - change in medication Alleviating Factor(s): Nothing Related History: Positive For: Prior Psychiatric Issues - anxiety, ADHD, depression, PTSD, inpatient treatment, suicide attempt Has Suicidal: Reports: Thoughts, With A Plan - overdosing on pills and drinking alcohol - Allergies/Home Medications Allergies/Adverse Reactions: Allergies Allergy/AdvReac Type Severity Reaction Status Date / Time nicotine [From [facility] [place], [place]] Allergy Unknown Rash Verified 06/06/19 11:45 omeprazole Allergy See Comment Verified 06/06/19 11:45 tramadol AdvReac See Comment Verified 06/06/19 11:45 Home Medications: Home Medications LORazepam TAB(*) [Ativan 0.5 MG TAB (*)] 0.5 mg PO BID PRN 07/06/19 [History Confirmed 07/06/19] LoraTADine TAB(NF) [Claritin 10 MG TAB(NF)] 10 mg PO DAILY 07/06/19 [History Confirmed 07/06/19] Methadone TAB* [Dolophine TAB*] 20 mg PO TID 07/06/19 [History Confirmed ] Pregabalin CAP(*) [Lyrica CAP(*)] 75 mg PO TID 07/06/19 [History Confirmed 07/06] PMH/Surg Hx/FS Hx/Imm Hx Endocrine/Hematology History: Reports: Hx Thyroid Disease - thyrotoxosis, Other Endocrine/Hematological Disorders Denies: Hx Diabetes Cardiovascular History: Reports: Hx Hypotension, Hx Peripheral Vascular Disease Denies: Hx Hypercholesterolemia, Hx Hypertension, Hx Pacemaker/ICD Respiratory History: Reports: Hx Asthma, Hx Chronic Bronchitis, Other Respiratory Problems/Disorders - 30 YR SMOKING HX GI History: Reports: Hx Gastroesophageal Reflux Disease History: Reports: Other Problems/Disorders - acute renal failure Musculoskeletal History: Reports: Hx Arthritis, Hx Orthopedic Injury - knee replacement Jun 2017, Hx Tendonitis - LEFT ACHILLES TENDONITIS, WEARS BRACE, MUCH BETTER, Other Musculoskeletal History - chronic LE pain Sensory History: Denies: Hx Contacts or Glasses, Hx Hearing Aid Opthamlomology History: Denies: Hx Contacts or Glasses Neurological History: Denies: Other Neuro Impairments/Disorders Psychiatric History: Reports: Hx Anxiety, Hx Attention Deficit Hyperactivity Disorder, Hx Depression - Major depressive d/o, Hx Post Traumatic Stress Disorder, Hx Inpatient Treatment, Hx Community Mental Health Tx, Hx Suicide Attempt, Hx Substance Abuse, Other Psychiatric Issues/Disorders - Cluster B personality d/o Denies: Hx Eating Disorder, Hx Panic Disorder, Hx Schizophrenia, Hx Bipolar Disorder, Hx of Violent Episodes Against Others - Surgical History Surgical History: Yes Surgery Procedure, Year, and Place: LLE multiple fasciotomies, r knee replacement, OR wound debridement LLE Hx Anesthesia Reactions: No Infectious Disease History: No Infectious Disease History: Reports: Hx Hepatitis - Hepatitis C, Hx of Known/ Suspected MRSA - 06/21/17 Face Denies: Hx Clostridium Difficile, Hx Human Immunodeficiency Virus (HIV), Traveled Outside the [place] in Last 30 Days - Family History Known Family History: Negative: Cardiac Disease, Diabetes - Social History Alcohol Use: Occasionally Alcohol Amount: 6-12 beers a day Hx Substance Use: Yes - reports polysubstance self-medication Substance Use Type: Reports: Marijuana Substance Use Comment - Amount & Last Used: no substance abuse past 4 weeks - pt drug court mandated Hx Tobacco Use: Yes Smoking Status (MU): Light Every Day Tobacco Smoker Type: Cigarettes Amount Used/How Often: half a pack a day in the last 30 days Length of Time of Smoking/Using Tobacco: 30 years Have You Smoked in the Last Year: Yes Review of Systems Negative: Fever Positive: Other - suicidal ideation with plan All Other Systems Reviewed And Are Negative: Yes Physical Exam - Summary Physical Exam Summary: VITAL SIGNS: Reviewed. GENERAL: Patient is a well-developed and nourished female who is lying comfortable in the stretcher. Patient is not in any acute respiratory distress. HEAD AND FACE: No signs of trauma. No ecchymosis, hematomas or skull depressions. No sinus tenderness. EYES: PERRLA, EOMI x 2, No injected conjunctiva, no nystagmus. EARS: Hearing grossly intact. Ear canals and tympanic membranes are within normal limits. MOUTH: Oropharynx within normal limits. NECK: Supple, trachea is midline, no adenopathy, no JVD, no carotid bruit, no c- spine tenderness, neck with full ROM. CHEST: Symmetric, no tenderness at palpation. LUNGS: Clear to auscultation bilaterally. No wheezing or crackles. CVS: Regular rate and rhythm, S1 and S2 present, no murmurs or gallops appreciated. ABDOMEN: Soft, non-tender. No signs of distention. No rebound, no guarding, and no masses palpated. Bowel sounds are normal. EXTREMITIES: FROM in all major joints, no edema, no cyanosis or clubbing. Below the knee amputation on the right. NEURO: Alert and oriented x 3. No acute neurological deficits. Speech is normal and follows commands. SKIN: Dry and warm. PSYCH: Depressed, quiet, and denies any suicidal thoughts or plan. No homicidal thoughts or plan. No signs of psychosis or pressure speech. No tangential speech. Triage Information Reviewed: Yes Vital Signs On Initial Exam: Initial Vitals Temp Pulse Resp BP Pulse Ox 98.4 F 73 17 144/109 98 07/06/19 13:52 07/06/19 13:52 07/06/19 13:52 07/06/19 13:52 07/06/19 13:52 Vital Signs Reviewed: Yes Procedures - Sedation Patient Received Moderate/Deep Sedation with Procedure: No Diagnostics - Vital Signs Vital Signs Temp Pulse Resp BP Pulse Ox 07/06/19 13:52 98.4 F 73 17 144/109 98 - Laboratory Result Diagrams: 07/06/19 14:23 07/06/19 14:23 Lab Statement: Any lab studies that have been ordered have been reviewed, and results considered in the medical decision making process. Re-Evaluation - Re-Evaluation First Eval Re-Evaluation Time: 14:30 Change: Unchanged Comment: Patient is medically clear for mental health evaluation. Course/Dx - Course Assessment/Plan: Patient is a 48 y/o F who has psychiatric history with a chief complaint of suidicidal ideation following a change in her medications two days ago. She has a plan for overdosing on pills and drinking alcohol. Blood work w/ o a significant abnormality. She is medically cleared. She is awaiting a MHE. Patient is hemodynamically stable and A+O x 3. Patient assessed by Dr. Morales, and he will admit the patient to his services. - Differential Dx/Clinical Impression Provider Diagnosis: Depression - Physician Notifications Discussed Care Of Patient With: Nguyen Medina - mental health shirt sorter Time Discussed With Above Provider: 16:20 Instructed by Provider To: Other - Nguyen reports that Dr. Morales, psychiatry , has reviewed the patient's case and believes that voluntary admission is the best route for treatment. Diagnosis of depression. Discharge ED - Sign-Out/Discharge Documenting (check all that apply): Patient Departure - Patient is voluntarily admitted by Dr. Morales. - Discharge Plan Condition: Stable Disposition: ADMITTED TO [facility] Referrals: Sada Rosenberg MD [Primary Care Provider] - - Billing Disposition and Condition Condition: STABLE Disposition: Admitted to [facility] - Attestation Statements Document Initiated by Alfredoibe: Yes Documenting Scribe: Bonnie Norman Provider For Whom Moses is Documenting (Include Credential): Dr. Rolan Steen MD Scribe Attestation: Bonnie Rich scribed for Dr. Rolan Steen MD on 07/06/19 at 1900. Scribe Documentation Reviewed: Yes Provider Attestation: The documentation as recorded by the Bonnie lock accurately reflects the service I personally performed and the decisions made by me, Dr. Rolan Steen MD Status of Scribe Document: Viewed
[2019-07-06 14:30] LABS: ABS Basophils 0.1 10^3/ul (0-0.2); ABS Eosinophils 0.1 10^3/ul (0-0.6); ABS Lymphocytes 2.5 10^3/ul (1.0-4.8); ABS Neutrophils 7.3 10^3/ul (1.5-7.7); Eosinophil % 0.6 %; Hematocrit 43 % (35-47); Hemoglobin 14.9 g/dL (12.0-16.0); Mean Corpuscular HGB Conc 35 g/dL (31-36); Mean Corpuscular Hemoglobin 28 pg (27-31); Mean Corpuscular Volume 80 fL (80-97); Mean Platelet Volume 7.8 fL (7.4-10.4); Nucleated Red Blood Cells % 0.1; Platelet Count 352 10^3/uL (150-450); Red Blood Count 5.32 10^6 /uL (3.70-4.87); Red Cell Distribution Width 17 % (10-15); White Blood Count 10.9 10^3/uL (3.5-10.8)
--- OUTSIDE RECORDS SUMMARY | 2019-07-06 14:31 | XMS REPORT | Continuity of Care Document ---
:1970 External Reference #:[id number] Author Name Cj Appiah MD (transmitted by agent of provider Josie Torres) Address [address] [place] [address] Care Team Providers Name Role Phone Codi Bullard MD - Surgery Care Team Information [employer] [place] Wilian Sweeney MD - Orthopaedic Care Team Information [employer] [place] [phone] Surgery Patria So MD - Gastroenterology Care Team Information [employer] [place] Miguel Menon MD - Infectious Care Team Information [employer] [place] Disease Patria Teixeira MD - Psychiatry Care Team Information [employer] [place] Jana Langford PA - Physician Care Team Information [employer] [place] [phone] 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 Torrie Bond in [place], having ECT Chronic post-traumatic stress disorder Darrick Murphy M.D. Onset: 11/06/2015 Adult attention deficit hyperactivity [...] left foot Cj Appiah MD Onset: 12/27/2018 Social History Type Date Description Comments Sex Unknown Tobacco Use Start: Unknown Light tobacco smoker (10 or fewer cigarettes/day) ETOH Use Denies alcohol use Recreational Drug Use Former Drug User She used to use Cocaine occasionally, last time Oct 13 2015 Marijuana couple times a year Tobacco Use Reviewed: 06/27/17 Light tobacco smoker 1-2 a day (10 or fewer cigarettes/day) Smoking Status Reviewed: 07/03/19 Light tobacco smoker 1-2 a day (10 or fewer cigarettes/day) Exercise Type/Frequency Does not exercise Allergies, Adverse Reactions, Alerts Active Allergies Reaction Severity Comments Date Tramadol nausea and itching Moderate 11/06/2015 Nicotine patch rash Severe 11/06/2015 Omeprazole 01/11/2017 Medications Active Medications SIG Qnty Indications Ordering Date Provider Lyrica one by mouth 90caps M54.31 Jorge Luis Wen, 12/07/2018 75mg Capsules twice a day Marysol Zyrtec Allergy take one tablet 30caps Junior Gonzales NP 10/31/2018 10mg by mouth in the Capsules evening Nicotine Polacrilex chew q3-4 h as 100units Jeovany Newberry 08/20/2016 needed mdd5 Marysol Huang,KRISTA 4mg Gum Protonix 1 tablet by mouth 30tabs K21.9 Junior Gonzales NP 11/06/[address] every [address] Grossman 1 by mouth every 30tabs Junior Gonzales NP 10mg day Tablets Nicotine Tartrate 10mg inhaled Unknown every 2 hours as Powder needed for cravings Loratadine once a day for Unknown 10mg allergies as Capsules needed Lorazepam one tab every six Unknown 1mg Tablets hours as needed for severe anxiety Methadone HCL 6/day Unknown 10mg Tablets Multivital Unknown Prozac 60mg Unknown Medications Administered in Office Medication SIG Qnty Indications Ordering Provider Date Depomedrol 40MG PARISH Stovall 03/17/2016 Injection Depomedrol 40MG PARISH Stovall 03/17/2016 Injection Immunizations CPT Code Status Date Vaccine Reaction Lot # [id number] Given 08/20/2016 Hepatitis A Vaccine Adult pt tolerated well, no [id number] Dosage reaction [id number] Given 01/19/2016 Pneumonia Vaccine Vital Signs Date Vital Result Comment 07/03/2019 1:01pm Height 63 inches 5'3" Weight 148.00 lb Heart Rate 83 /min BP Systolic 108 mmHg BP Diastolic 74 mmHg Respiratory Rate 16 /min Body Temperature 98.6 F Pain Level 0 BMI (Body Mass Index) 26.2 kg/m2 05/08/2019 1:03pm Height 63 inches 5'3" Weight 135.00 lb Heart Rate 84 /min BP Systolic Sitting 126 mmHg BP Diastolic Sitting 80 mmHg Body Temperature 98.3 F Pain Level 7 BMI (Body Mass Index) 23.9 kg/m2 Results Test Date Facility Test Result H/L Range Note Urine Drug 01/05/20 [facility] Urine Presumptive Abnormal None 1 SCR ED & [address] Amphetamine Posi <SEE NOTE> [place] [address] Screen [phone] Urine Barbiturates Screen None Detected None Detect Urine Benzodiazepine Screen None Detected None Detect Urine Cannabinoids Screen Presumptive Posi <SEE NOTE> Abnormal None Detect 2 Urine Cocaine Screen Presumptive Posi <SEE NOTE> Abnormal None Detect 3 Urine Opiates Screen None Detected None Detect Urine Phencyclidine Screen None Detected None Detect 4 Wound 01/04/2019 [facility] Wound/Misc SEE RESULT 5 Culture/Sensi [address] [place] [address] Stain [phone] CBC Auto Diff 01/03/2019 [facility] White Blood 11.0 High 3.5 - [address] Count 10^3/uL 10.8 [place] [address] [phone] Red Blood Count 4.51 10^6/uL Normal 3.70-4.87 Hemoglobin 12.1 g/dL Normal 12.0-16.0 Hematocrit 36 % Normal 33-41 Mean Corpuscular Volume 80 fL Normal 80-97 Mean Corpuscular Hemoglobin 27 pg Normal 27-31 Mean Corpuscular HGB Conc 34 g/dL Normal 31-36 Red Cell Distribution Width 14 % Normal 10.5-15 Platelet Count 533 10^3/uL High 150-450 Mean Platelet Volume 7.9 fL Normal 7.4-10.4 Abs Neutrophils 7.1 10^3/uL Normal 1.5-7.7 Abs Lymphocytes 2.3 10^3/uL Normal 1.0-4.8 Abs Monocytes 1.4 10^3/uL High 0-0.8 Abs Eosinophils 0.1 10^3/uL Normal 0-0.6 Abs Basophils 0.1 10^3/uL Normal 0-0.2 Abs Nucleated RBC 0 10^3/uL Granulocyte % 64.7 % Lymphocyte % 21.3 % Monocyte % 12.7 % Eosinophil % 0.5 % Basophil % 0.8 % Nucleated Red Blood Cells % 0 Comp Metabolic 01/03/2019 [facility] Sodium 136 mmol/L Normal 135-[address] [place] [address] [phone] Potassium 3.0 mmol/L Low 3.5-5.0 Chloride 96 mmol/L Low 101-111 Co2 Carbon Dioxide 28 mmol/L Normal 22-32 Anion Gap 12 mmol/L High 2-11 Glucose 78 mg/dL Normal 70-100 Blood Urea Nitrogen 8 mg/dL Normal 6-24 Creatinine 0.78 mg/dL Normal 0.51-0.95 BUN/Creatinine Ratio 10.3 Normal 8-20 Calcium 9.5 mg/dL Normal 8.6-10.3 Total Protein 7.5 g/dL Normal 6.4-8.9 Albumin 3.9 g/dL Normal 3.2-5.2 Globulin 3.6 g/dL Normal 2-4 Albumin/Globulin Ratio 1.1 Normal 1-3 Total Bilirubin 0.30 mg/dL Normal 0.2-1.0 Alkaline Phosphatase 256 U/L High 34-104 Alt 15 U/L Normal 7-52 Ast 22 U/L Normal 13-39 Egfr Non- 79.5 >60 Egfr 96.2 >60 6 Laboratory test 01/03/2019 [facility] HCG 1.24 mIU/mL [address] [place] [address] [phone] Acetaminophen < 15 g/mL 8 Alcohol < 10 mg/dL Normal <10 Salicylate < 2.50 mg/dL <30 TSH (Thyroid Stim Horm) 0.79 mcIU/mL Normal 0.34-5.60 Lactic Acid 0.9 mmol/L Normal 0.5-2.0 9 C Reactive Protein 78.29 mg/L High <8.01 Erythrocyte Sed Rate > 120 mm/Hr High 0-19 1 Presumptive Positive Presumptive positive results are [...] [address]: Radha Ruvalcaba MD Acct: [id number] Unit: [id number] AGE: 48 Location: [place] [address]01 Re01/04/19 SEX: F Status: ADM IN SPEC: [id number] AGUILA: 01/04/[address] [facility] [address]: Alec JESUS REQ: [id number] RECD: 01/04/19 STATUS: RES OTHR DR: Jeovany Lucio MD _ SOURCE: FOOT,LEFT SPDESC: ORDERED: Culture Stain Procedure Result Reported Site Wound/Misc Gram Stain Final 01/04/19806 ML 2+ Epithelial Cells 1+ Neutrophils 1+ Gram Positive Cocci 1+ Gram Negative Bacilli Wound/Misc Culture PENDING * ML - Main Lab . END OF REPORT DEPARTMENT OF PATHOLOGY, [address] [place] [address] Panchito Steve M.D. Director [facility] # [id number] 6 Because ethnic data is not always [...] <50 ug/mL Toxic concentration: >120 ug/mL 9 [facility] Severe Sepsis and Septic Shock Management Bundle Measure requires all lactic acids initially measuring >2.0 mmol/L be repeated. Procedures Date Code Description Status 01/16/2019 84578 Amputation Leg Through Tibia & Fibula Completed 01/16/2019 83997 Amputation Leg Through Tibia & Fibula Completed 01/07/2019 47051 Negative Pressure Wound Therapy Less Than 50 Square CM Completed 01/07/2019 12924 Debridement Skin,& sq Tissue Completed 01/07/2019 24389 Debridement Skin,& sq Tissue Completed 01/04/2019 49560 Deep Dissection Below Fascia Foot Infection Bursal Space Completed Mult Medical Devices Description No Information Available Encounters Type Date Location Provider Dx Diagnosis Office Visit 05/08/2019 [facility] Cjdeborah Appiah, R23.8 Other skin 1:00p at [facility] BRIGGS changes Z47.81 Encounter for orthopedic aftercare following surgical amp Z89.512 Acquired absence of left leg below knee Office Visit 01/31/2019 9:14a [facility] Mary Renteria, Z89.512 Acquired Assocleandro MD absence of left Hospitalists leg below knee F41.9 Anxiety disorder, unspecified 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 osteomyelitis, left Hospitalists ankle and foot Z89.512 Acquired absence of left leg below knee R45.851 Suicidal ideations L97.528 Non-prs chronic ulcer oth prt left foot with oth severity F19.10 Other psychoactive substance abuse, uncomplicated F43.10 Post-traumatic stress disorder, unspecified L03.116 Cellulitis of left lower limb Z79.891 correction (current) use of opiate analgesic Office Visit 01/24/2019 10:02a [facility] Ava I73.9 Peripheral Assoc,leandro Avila D.O. vascular disease, Hospitalists unspecified M86.9 Osteomyelitis, unspecified F19.20 Other psychoactive substance dependence, uncomplicated F41.9 Anxiety disorder, unspecified F17.200 Nicotine dependence, unspecified, uncomplicated Z89.512 Acquired absence of left leg below knee 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 analgesic [facility] I95.9 Hypotension, 10:02a Assocleandro MD unspecified Hospitalists M86.9 Osteomyelitis, unspecified I73.9 Peripheral vascular disease, unspecified F41.9 Anxiety disorder, unspecified Z89.512 Acquired absence of left leg below knee Office [facility] I95.9 Hypotension, 10:01a leandro Farley MD unspecified Hospitalists M86.9 Osteomyelitis, unspecified F41.9 Anxiety disorder, unspecified I73.9 Peripheral vascular disease, unspecified Z89.512 Acquired absence of left leg below knee Office Visit 01/21/2019 10:00a [facility] Dionisio Curiel Z89.512 Acquired leandro Farley MD absence of Hospitalists left leg below knee I95.9 Hypotension, unspecified I73.9 Peripheral vascular disease, unspecified M86.9 Osteomyelitis, unspecified F12.20 Cannabis dependence, uncomplicated F14.20 Cocaine dependence, uncomplicated 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 analgesic Office Visit 01/20/2019 10:00a [facility] Dionisio Curiel Z89.512 Acquired Assocleandro MD absence of Hospitalists left leg below knee I95.9 Hypotension, unspecified I73.9 Peripheral vascular disease, unspecified M86.9 Osteomyelitis, unspecified F12.20 Cannabis dependence, uncomplicated F14.20 Cocaine dependence, uncomplicated Z79.891 correction (current) use of opiate analgesic Office 01/19/2019 [facility] M86.172 Other acute Visit 6:02a Infectious Meehan, ASPHALT SPREADER OPERATOR osteomyelitis, Diseases left ankle and foot Office 01/19/2019 [facility] Dionisio Curiel I95.9 Hypotension, Visit 9:59a leandro Farley MD unspecified Hospitalists M86.9 Osteomyelitis, unspecified I73.9 Peripheral vascular disease, unspecified Z89.512 Acquired absence of left leg below knee F12.20 Cannabis dependence, uncomplicated F14.20 Cocaine dependence, uncomplicated Z79.891 correction (current) use of opiate analgesic Office Visit 01/18/2019 [facility] Radha Ruvalcaba, I95.9 Hypotension, 9:59a leandro Farley M.D. unspecified Hospitalists F41.9 Anxiety disorder, unspecified Z89.512 Acquired absence of left leg below knee Office 01/17/2019 [facility] M86.172 Other acute Visit 6:01a Infectious Meehan, ASPHALT SPREADER OPERATOR osteomyelitis, Diseases left ankle and foot Office 01/17/2019 [facility] Radha Ruvalcaba F41.9 Anxiety disorder, Visit 9:59a leandro Farley M.D. unspecified Hospitalists F14.20 Cocaine dependence, uncomplicated F12.20 Cannabis dependence, uncomplicated I95.9 Hypotension, unspecified I73.9 Peripheral vascular disease, unspecified Z89.512 Acquired absence of left leg below knee 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 analgesic Office Visit 01/16/2019 [facility] Radha Ruvalcaba F41.9 Anxiety disorder, 9:58a leandro Farley M.D. unspecified Hospitalists M86.9 Osteomyelitis, unspecified I73.9 Peripheral vascular disease, unspecified F12.20 Cannabis dependence, uncomplicated F14.20 Cocaine dependence, uncomplicated I95.9 Hypotension, unspecified Z79.891 correction (current) use of opiate analgesic Office Visit 01/15/2019 [facility] Radha Ruvalcaba, F41.9 Anxiety disorder, 9:58a Assoc,pc M.D. unspecified Hospitalists M86.9 Osteomyelitis, unspecified F12.20 Cannabis dependence, uncomplicated F14.20 Cocaine dependence, uncomplicated I95.9 Hypotension, unspecified Z79.891 correction (current) use of opiate analgesic Office 01/15/2019 [facility] M86.172 Other acute Visit 5:59a Infectious Zoran, ASPHALT SPREADER OPERATOR osteomyelitis, Diseases left ankle and foot Office [facility] F[facility].9 Anxiety disorder, Visit 9:57a leandro Farley M.D. unspecified Hospitalists M86.9 Osteomyelitis, unspecified F12.20 Cannabis dependence, uncomplicated F14.20 Cocaine dependence, uncomplicated I95.9 Hypotension, unspecified 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 analgesic [facility] F41.9 Anxiety disorder, 9:57a leandro Farley M.D. unspecified Hospitalists F14.20 Cocaine dependence, uncomplicated F12.20 Cannabis dependence, uncomplicated M86.9 Osteomyelitis, unspecified 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 analgesic Office Visit 01/12/2019 [facility] Kay K59.00 Constipation, 9:56a leandro Farley, DO unspecified Hospitalists M86.9 Osteomyelitis, unspecified I73.9 Peripheral vascular disease, unspecified 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 analgesic Office 01/12/2019 [facility] M86.172 Other acute Visit 7:46a Infectious Zoran, ASPHALT SPREADER OPERATOR osteomyelitis, Diseases left ankle and foot Office 01/11/2019 [facility] Kay Horton, K59.00 Constipation, Visit 9:56a Assjeanette,pc DO unspecified Hospitalists M86.9 Osteomyelitis, unspecified I73.9 Peripheral vascular disease, unspecified Z79.891 correction (current) use of opiate analgesic Office Visit 01/10/2019 [facility] Kay K59.00 Constipation, 9:55a Assocpc Sol, DO unspecified Hospitalists I73.9 Peripheral vascular disease, unspecified M86.9 Osteomyelitis, unspecified B96.89 Oth bacterial agents as the cause of diseases classd elswhr Z79.891 correction (current) use of opiate analgesic [facility] M86.172 Other acute 7:46a For Infectious Meehan, ASPHALT SPREADER OPERATOR osteomyelitis, left Diseases ankle and foot L03.116 Cellulitis of left lower limb Office Visit 01/09/2019 [facility] Kay K59.00 Constipation, 9:55a Assoc,leandro Horton DO unspecified Hospitalists M86.9 Osteomyelitis, unspecified I73.9 Peripheral vascular disease, unspecified 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 analgesic Office Visit 01/09/2019 [facility] Edinsonmabritney L03.116 Cellulitis of 7:45a For Infectious Meehan, ASPHALT SPREADER OPERATOR left lower limb Diseases M86.172 Other acute osteomyelitis, left ankle and foot Office Visit 01/08/2019 [facility] Radha Ruvalcaba, F41.9 Anxiety disorder, 9:55a Assocleandro M.D. unspecified Hospitalists M86.672 Other chronic osteomyelitis, left ankle and foot G89.29 Other chronic pain F12.20 Cannabis dependence, uncomplicated F14.20 Cocaine dependence, uncomplicated I95.9 Hypotension, unspecified Z79.891 correction (current) use of opiate analgesic Office Visit 01/08/2019 [facility] Imani M86.172 Other acute 7:41a For Infectious Meehan, ASPHALT SPREADER OPERATOR osteomyelitis, left Diseases ankle and foot L03.116 Cellulitis of left lower limb Office Visit 01/07/2019 [facility] Radha Ruvalcaba, F41.9 Anxiety disorder, 9:54a Assocleandro M.D. unspecified Hospitalists M86.672 Other chronic osteomyelitis, left ankle and foot G89.29 Other chronic pain F12.20 Cannabis dependence, uncomplicated F14.20 Cocaine dependence, uncomplicated Z79.891 correction (current) use of opiate analgesic Office Visit 01/06/2019 [facility] Radha Ruvalcaba, F41.9 Anxiety disorder, 9:54a Assleandro reidDSandra unspecified Hospitalists M86.672 Other chronic osteomyelitis, left ankle and foot G89.29 Other chronic pain F12.20 Cannabis dependence, uncomplicated F14.20 Cocaine dependence, uncomplicated 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 analgesic Office Visit 01/05/2019 [facility] Radha Ruvalcaba, F41.9 Anxiety disorder, 9:53a leandro Farley M.D. unspecified Hospitalists M86.672 Other chronic osteomyelitis, left ankle and foot F12.20 Cannabis dependence, uncomplicated F14.20 Cocaine dependence, uncomplicated Office Visit 01/04/2019 9:53a [facility] Venus L03.116 Cellulitis of Assleandro reid Rooth, DO left lower limb Hospitalists L97.529 Non-pressure chronic ulcer oth prt left foot w unsp severity R45.851 Suicidal ideations S92.352A Disp fx of fifth metatarsal bone, left foot, init F12.90 Cannabis use, unspecified, uncomplicated F14.10 Cocaine abuse, uncomplicated Assessments Date Code Description Provider 07/03/2019 Z47.81 Encounter for orthopedic aftercare Cj Appiah MD following surgical amputation 07/03/2019 Z89.512 Acquired absence of left leg below Cj Appiah MD knee 05/08/2019 R23.8 Other skin changes Cj Appiah MD 05/08/2019 Z47.81 Encounter for orthopedic aftercare Cj Appiah MD following surgical amputation 05/08/2019 Z89.512 Acquired absence of left leg below Cj Appiah MD knee 04/04/2019 Z47.81 Encounter for orthopedic aftercare Cj Appiah MD following surgical amp 04/04/2019 Z89.512 Acquired absence of left leg below Cj Appiah MD knee 02/14/2019 Z89.512 Acquired absence of left leg below Cj Appiah MD knee 02/14/2019 Z47.81 Encounter for orthopedic aftercare Cj Appiah MD following surgical amp 02/07/2019 Z89.512 Acquired absence of left leg below Cj Appiah MD knee 02/07/2019 Z47.81 Encounter for orthopedic aftercare Cj Appiah MD following surgical amp 02/06/2019 Z89.512 Acquired absence of left leg below Radha Ruvalcaba M.D. knee 02/06/2019 Z47.81 Encounter for orthopedic aftercare Jimenez Ruiz PA-C following surgical amp 02/06/2019 F41.8 Other specified anxiety disorders Radha Ruvalcaba M.D. 02/06/2019 Z89.512 Acquired absence of left leg below Jimenez Ruiz PA-C knee 02/06/2019 R41.82 Altered mental status, unspecified Radha Ruvalcaba M.D. 02/06/2019 Z79.891 correction (current) use of opiate Radha Ruvalcaba M.D. analgesic 01/31/2019 Z89.512 Acquired absence of left leg below Mary Renteria MD knee 01/31/2019 F41.9 Anxiety disorder, unspecified Mary Renteria MD 01/31/2019 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 Mary Renteria MD analgesic 01/30/2019 Z89.512 Acquired absence of left leg below Cj Appiah MD knee 01/30/2019 Z47.81 Encounter for orthopedic aftercare Cj Appiah MD following surgical amp 01/28/2019 Z89.512 Acquired absence of left leg below ILIANA Blackwell knee 01/25/2019 M86.672 Other chronic osteomyelitis, left Ava Avila D.O. ankle and foot 01/25/2019 Z89.512 Acquired absence of left leg below Ava Avila, D.O. knee 01/25/2019 R45.851 Suicidal ideations Ava Avila D.O. 01/25/2019 L97.528 Non-prs chronic ulcer oth prt left Ava Avila D.O. foot with oth severity 01/25/2019 F19.10 Other psychoactive substance abuse, Ava Mirelesr, D.O. uncomplicated 01/25/2019 F43.10 Post-traumatic stress disorder, Ava Avila, D.O. unspecified 01/25/2019 L03.116 Cellulitis of left lower limb Ava Avila D.O. 01/25/2019 Z79.891 correction (current) use of opiate Ava Austin, D.O. analgesic 01/24/2019 Z47.81 Encounter for orthopedic aftercare ANN MARIE Lopez following surgical amp 01/24/2019 I73.9 Peripheral vascular disease, Ava Avila D.O. unspecified 01/24/2019 Z89.512 Acquired absence of left leg below ANN MARIE Lopez knee 01/24/2019 M86.9 Osteomyelitis, unspecified Ava Austin, D.O. 01/24/2019 F19.20 Other psychoactive substance Ava Austin, D.O. dependence, uncomplicated 01/24/2019 F41.9 Anxiety disorder, unspecified Ava Austin, D.O. 01/24/2019 F17.200 Nicotine dependence, unspecified, Ava Austin, D.O. uncomplicated 01/24/2019 Z89.512 Acquired absence of left leg below Ava Austin, D.O. knee 01/24/2019 Z79.891 correction (current) use of opiate Ava Austin, D.O. analgesic 01/23/2019 I95.9 Hypotension, unspecified Dionisio Leal MD 01/23/2019 M86.9 Osteomyelitis, unspecified Dionisio Leal MD 01/23/2019 I73.9 Peripheral vascular disease, Dionisio Leal MD unspecified 01/23/2019 F41.9 Anxiety disorder, unspecified Dionisio Leal MD 01/23/2019 Z89.512 Acquired absence of left leg below Dionisio Leal MD knee 01/22/2019 Z89.512 Acquired absence of left leg below ANN MARIE Lopez knee 01/22/2019 I95.9 Hypotension, unspecified Dionisio Leal MD 01/22/2019 M86.9 Osteomyelitis, unspecified Dionisio Leal MD 01/22/2019 F41.9 Anxiety disorder, unspecified Dionisio Leal MD 01/22/2019 I73.9 Peripheral vascular disease, Dionisio Leal MD unspecified 01/22/2019 Z89.512 Acquired absence of left leg below Dionisio Leal MD knee 01/21/2019 Z89.512 Acquired absence of left leg below ANN MARIE Mcdonough knee 01/21/2019 Z89.512 Acquired absence of left leg below Dionisio Leal MD knee 01/21/2019 I95.9 Hypotension, unspecified Dionisio Leal MD 01/21/2019 I73.9 Peripheral vascular disease, Dionisio Leal MD unspecified 01/21/2019 M86.9 Osteomyelitis, unspecified Dionisio Leal MD 01/21/2019 F12.20 Cannabis dependence, uncomplicated Dionisio Leal MD 01/21/2019 F14.20 Cocaine dependence, uncomplicated Dionisio Leal MD 01/21/2019 Z79.891 correction (current) use of opiate Dionisio Leal MD analgesic 01/20/2019 Z89.512 Acquired absence of left leg below ANN MARIE Mcdonough knee 01/20/2019 Z89.512 Acquired absence of left leg below Dionisio Leal MD knee 01/20/2019 I95.9 Hypotension, unspecified Dionisio Leal MD 01/20/2019 I73.9 Peripheral vascular disease, Dionisio Leal MD unspecified 01/20/2019 M86.9 Osteomyelitis, unspecified Dionisio Leal MD 01/20/2019 F12.20 Cannabis dependence, uncomplicated Dionisio Leal MD 01/20/2019 F14.20 Cocaine dependence, uncomplicated Dionisio Leal MD 01/20/2019 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 Dionisio Leal MD analgesic 01/19/2019 M86.172 Other acute osteomyelitis, left Mirna Meehan NP ankle and foot 01/19/2019 I95.9 Hypotension, unspecified Dionisio Leal MD 01/19/2019 M86.9 Osteomyelitis, unspecified Dionisio Leal MD 01/19/2019 I73.9 Peripheral vascular disease, Dionisio Leal MD unspecified 01/19/2019 Z89.512 Acquired absence of left leg below Dionisio Leal MD knee 01/19/2019 F12.20 Cannabis dependence, uncomplicated Dionisio Leal MD 01/19/2019 F14.20 Cocaine dependence, uncomplicated Dionisio Leal MD 01/19/2019 Z79.891 correction (current) use of opiate Dionisio Leal MD analgesic 01/18/2019 Z89.512 Acquired absence of left leg below ANN MARIE Lopez knee 01/18/2019 I95.9 Hypotension, unspecified Radha Ruvalcaba M.D. 01/18/2019 F41.9 Anxiety disorder, unspecified Radha Ruvalcaba M.D. 01/18/2019 Z89.512 Acquired absence of left leg below Radha Ruvalcaba M.D. knee 01/17/2019 M86.172 Other acute osteomyelitis, left Mirna Meehan NP ankle and foot 01/17/2019 Z89.512 Acquired absence of left leg below ANN MARIE Lopez knee 01/17/2019 F41.9 Anxiety disorder, unspecified Radha Ruvalcaba M.D. 01/17/2019 F14.20 Cocaine dependence, uncomplicated Radha Ruvalcaba M.D. 01/17/2019 F12.20 Cannabis dependence, uncomplicated Radha Ruvalcaba M.D. 01/17/2019 I95.9 Hypotension, unspecified Radha Ruvalcaba M.D. 01/17/2019 I73.9 Peripheral vascular disease, Radha Ruvalcaba M.D. unspecified 01/17/2019 Z89.512 Acquired absence of left leg below Radha Ruvalcaba M.D. knee 01/17/2019 Z79.891 correction (current) use of opiate Radha Ruvalcaba M.D. analgesic 01/16/2019 F41.9 Anxiety disorder, unspecified Radha Ruvalcaba M.D. 01/16/2019 Z47.89 Encounter for other orthopedic Cj Appiah MD aftercare 01/16/2019 M86.9 Osteomyelitis, unspecified Radha Ruvalcaba M.D. 01/16/2019 M86.672 Other chronic osteomyelitis, left Brittany Hardin RPA-Deborah ankle and foot 01/16/2019 I73.9 Peripheral vascular disease, Radha Ruvalcaba M.D. unspecified 01/16/2019 M86.672 Other chronic osteomyelitis, left Cj Appiah MD ankle and foot 01/16/2019 F12.20 Cannabis dependence, uncomplicated Radha Ruvalcaba M.D. 01/16/2019 L97.528 Non-prs chronic ulcer oth prt left Brittany Hardin RPA-Deborah foot with oth severity 01/16/2019 F14.20 Cocaine dependence, uncomplicated Radha Ruvalcaba M.D. 01/16/2019 B99.9 Unspecified infectious disease Brittany MckeonILIANA caballero 01/16/2019 I95.9 Hypotension, unspecified Radhagiovani Ruvalcaba M.D. 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 analgesic 01/16/2019 B99.9 Unspecified infectious disease Cj Appiah MD 01/15/2019 M86.172 Other acute osteomyelitis, left Mirna Meehan NP ankle and foot 01/15/2019 Z89.512 Acquired absence of left leg below Alva Guerrero PA knee 01/15/2019 F41.9 Anxiety disorder, unspecified Radha Ruvalcaba M.D. 01/15/2019 L03.116 Cellulitis of left lower limb Cj Appiah MD 01/15/2019 M86.9 Osteomyelitis, unspecified Radhagiovani Ruvalcaba M.D. 01/15/2019 F12.20 Cannabis dependence, uncomplicated Radharosalina Ruvalcaba M.D. 01/15/2019 F14.20 Cocaine dependence, uncomplicated Radha Antonio Ruvalcaba.D. 01/15/2019 I95.9 Hypotension, unspecified Radhagiovani Ruvalcaba M.D. 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 01/14/2019 F14.20 Cocaine dependence, uncomplicated Radhagiovani Ruvalcaba M.D. 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 analgesic 01/13/2019 F41.9 Anxiety disorder, unspecified Radha Ruvalcaba M.D. 01/13/2019 F14.20 Cocaine dependence, uncomplicated Radha Ruvalcaba M.D. 01/13/2019 F12.20 Cannabis dependence, uncomplicated Radha Ruvalcaba M.D. 01/13/2019 M86.9 Osteomyelitis, unspecified Radha Ruvalcaba M.D. 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 Kay Senner, DO analgesic 01/11/2019 K59.00 Constipation, unspecified Kay Senner, DO 01/11/2019 Z47.89 Encounter for other orthopedic Cj Appiah MD aftercare 01/11/2019 M86.9 Osteomyelitis, unspecified Kay Senner, DO 01/11/2019 I73.9 Peripheral vascular disease, Kay Senner, DO unspecified 01/11/2019 Z79.891 correction (current) use of opiate Kay Senner, DO analgesic 01/10/2019 K59.00 Constipation, unspecified Kay Senner, DO 01/10/2019 Z47.89 Encounter for other orthopedic ANN MARIE Lopez aftercare 01/10/2019 I73.9 Peripheral vascular disease, Kay Senner, DO unspecified 01/10/2019 M86.172 Other acute osteomyelitis, left Mirna Meehan , [employer] SPREADER OPERATOR 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 and foot 01/10/2019 M86.9 Osteomyelitis, unspecified Kay Senner, DO 01/10/2019 L03.116 Cellulitis of left lower limb Cj Appiah MD 01/10/2019 B96.89 Oth bacterial agents as the cause of Kay Senner, DO diseases classd elswhr 01/10/2019 L03.116 Cellulitis of left lower limb Mirna Meehan, [employer] SP[employer]ER OPERATOR 01/10/2019 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 Kay Senner, DO analgesic 01/09/2019 K59.00 Constipation, unspecified Kay Senner, DO 01/09/2019 M86.172 Other acute osteomyelitis, left Alva ANN MARIE Guerrero ankle and foot 01/09/2019 M86.9 Osteomyelitis, unspecified Kay Senner, DO 01/09/2019 L03.116 Cellulitis of left lower limb Mirna Meehan, [employer] SP[employer]ER OPERATOR 01/09/2019 I73.9 Peripheral vascular disease, Kay Senner, DO unspecified 01/09/2019 M86.172 Other acute osteomyelitis, left Mirna Meehan , [employer] SPREADER OPERATOR ankle and foot 01/09/2019 Z79.891 correction (current) use of opiate Kay Sol, DO analgesic 01/08/2019 F41.9 Anxiety disorder, unspecified Radha Ruvalcaba M.D. 01/08/2019 M86.672 Other chronic osteomyelitis, left Radha Ruvalcaba M.D. ankle and foot 01/08/2019 M86.172 Other acute osteomyelitis, left ANN MARIE Lopez ankle and foot 01/08/2019 G89.29 Other chronic pain Radha Ruvalcaba M.D. 01/08/2019 F12.20 Cannabis dependence, uncomplicated Radha Ruvalcaba M.D. 01/08/2019 M86.172 Other acute osteomyelitis, left Mirna Meehan , [employer] SP[employer]ER OPERATOR ankle and foot 01/08/2019 F14.20 Cocaine dependence, uncomplicated Radha Ruvalcaba M.D. 01/08/2019 I95.9 Hypotension, unspecified Radha Ruvalcaba M.D. 01/08/2019 L03.116 Cellulitis of left lower limb Mirna Meehan, [employer] SP[employer]ER OPERATOR 01/08/2019 Z79.891 correction (current) use of opiate Radha Ruvalcaba M.D. analgesic 01/07/2019 F41.9 Anxiety disorder, unspecified Radha Ruvalcaba M.D. 01/07/2019 L97.528 Non-prs chronic ulcer oth prt left Cris Mayorga RPA-C foot with oth severity 01/07/2019 M86.672 Other chronic osteomyelitis, left Radha Ruvalcaba M.D. ankle and foot 01/07/2019 L97.528 Non-prs chronic ulcer oth prt left Jorge Luis Wen M.D. foot with oth severity 01/07/2019 G89.29 Other chronic pain Radha Ruvalcaba M.D. 01/07/2019 F12.20 Cannabis dependence, uncomplicated Radha Ruvalcaba M.D. 01/07/2019 F14.20 Cocaine dependence, uncomplicated Radha Ruvalcaba M.D. 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 analgesic 01/06/2019 F41.9 Anxiety disorder, unspecified Radha Ruvalcaba M.D. 01/06/2019 M86.672 Other chronic osteomyelitis, left Radha Ruvalcaba M.D. ankle and foot 01/06/2019 G89.29 Other chronic pain Radha Ruvalcaba M.D. 01/06/2019 F12.20 Cannabis dependence, uncomplicated Radha Ruvalcaba M.D. 01/06/2019 F14.20 Cocaine dependence, uncomplicated Radha Ruvalcaba M.D. 01/06/2019 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 Radha Ruvalcaba M.D. analgesic 01/05/2019 F41.9 Anxiety disorder, unspecified Radha Ruvalcaba M.D. 01/05/2019 Z47.89 Encounter for other orthopedic Bernie Dugan, RPA-C aftercare 01/05/2019 M86.672 Other chronic osteomyelitis, left Radha Ruvalcaba M.D. ankle and foot 01/05/2019 L03.116 Cellulitis of left lower limb Bernie Dugan, RPA-C 01/05/2019 F12.20 Cannabis dependence, uncomplicated Radha Ruvalcaba M.D. 01/05/2019 F14.20 Cocaine dependence, uncomplicated Radha Ruvalcaba M.D. 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 with other specified severity 01/04/2019 R45.851 Suicidal ideations Venus Amado, DO 01/04/2019 S92.352A Disp fx of fifth metatarsal bone, Venus Amado, DO left foot, init 01/04/2019 F12.90 Cannabis use, unspecified, Venus Amado, DO uncomplicated 01/04/2019 F14.10 Cocaine abuse, uncomplicated Venus Amado, DO Plan of Treatment 07/03/2019 - Cj Appiah MDZ47.81 Encounter for orthopedic aftercare following surgical [id number] Acquired absence of left leg below kneeFollow up:Follow Up: on 07/10 with Behzad and to see January Melendez of sharif that day Functional Status Description No Information Available Mental Status Description No Information Available Referrals Refer to Reason for Referral Status Appt Date [facility] Please start left TKA stump Closed shrinking process and fitting for prosthesis [address] [place] [address] [phone]
--- OUTSIDE RECORDS SUMMARY | 2019-07-06 14:31 | XMS REPORT | Continuity of Care Document ---
:1970 External Reference #:[id number] Author Name Cj Appiah MD (transmitted by agent of provider Josie Torres) Address [address] [place] [address] Care Team Providers Name Role Phone Codi Bullard MD - Surgery Care Team Information Chief Technician X Ray Wilian Sweeney MD - Orthopaedic Care Team Information Chief Technician X Ray Surgery Patria So MD - Gastroenterology Care Team Information Chief Technician X Ray [phone] Miguel Menon MD - Infectious Care Team Information Chief Technician X Ray Disease Patria Teixeira MD - Psychiatry Care Team Information Chief Technician X Ray Jana Langford PA - Physician Care Team Information Chief Technician X Ray Bilingual Medical Assistant Problems Active Problems Provider Date Heroin overdose Jeovany Huang M.D.,FACP Onset: 06/17/2017 Note: 06/03 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 Torrie Bond in [place], having ECT Chronic post-traumatic stress disorder Darrick Murphy M.D. Onset: 11/06/2015 Adult attention deficit hyperactivity Darrick Murphy M.D. Onset: 11/06/2015 disorder Polysubstance abuse Darrick Murphy M.D. Onset: 11/06/2015 Viral hepatitis C Darrick Murphy M.D. Onset: 11/06/2015 Asthma Darrick Murphy M.D. Onset: 11/06/2015 Gastroesophageal reflux disease Drarick Murphy M.D. Onset: 11/06/2015 Achilles bursitis Wilian [...] (10 or fewer cigarettes/day) Smoking Status Reviewed: 05/08/19 Light tobacco smoker 1-2 a day (10 or fewer cigarettes/day) Exercise Type/Frequency Does not exercise Allergies, Adverse Reactions, Alerts Active Allergies Reaction Severity Comments Date Tramadol nausea and itching Moderate 11/06/2015 Nicotine patch rash Severe 11/06/2015 Omeprazole 01/11/2017 Medications Active Medications SIG Qnty Indications Ordering Date Provider Lyrica one by mouth 90caps M54.31 Jorge Luis Wen 12/07/2018 75mg Capsules twice a day M.D. Ibuprofen one by mouth 90tabs T79.A0xD Jorge Luis Wen, 11/14/2018 600mg Tablets three times a day M.D. Zyrtec Allergy take one tablet 30caps Junior Gonzales NP 10/31/2018 10mg by mouth in the Capsules evening Nicotine Polacrilex chew q3-4 h as 100units Jeovany Newberry 08/20/2016 4mg needed mdd5 Marysol Huang,FACP Gum Protonix 1 tablet by mouth 30tabs K21.9 Junior Gonzales NP 11/06/[address] Trazodone HCL 1 tab by mouth 30tabs Other Ordering 10/30/2015 300mg every night at Provider Tablets bedtime Singulair 1 by mouth every 30tabs Junior Gonzales NP 10mg Tablets day Nicotine Tartrate 10mg inhaled Unknown every 2 hours as Powder needed for cravings Loratadine once a day for Unknown 10mg allergies as Capsules needed Acetaminophen ER 3 by mouth twice Unknown 650mg a day and 650mg Tablets ER every 8 hrs as needed Lorazepam one tab every six Unknown 1mg Tablets hours as needed for severe anxiety Methadone HCL 6/day Unknown 10mg Tablets Multivital Unknown Prozac 60mg Unknown History Medications Keflex 1 tab by mouth 28caps Cj Appiah MD 12/27/2018 - 500mg Capsules four times a day 02/13/2019 Medications Administered in Office Medication SIG Qnty Indications Ordering Provider Date Depomedrol 40MG [place] 03/17/2016 Injection Depomedrol 40MG [place] 03/17/2016 Injection Immunizations CPT Code Status Date Vaccine Reaction Lot # [id number] Given 08/20/2016 Hepatitis A Vaccine Adult pt tolerated well, no [id number] Dosage reaction [id number] Given 01/19/2016 Pneumonia Vaccine Vital Signs Date Vital Result Comment 05/08/2019 1:03pm Height 63 inches 5'3" Weight 135.00 lb Heart Rate 84 /min BP Systolic Sitting 126 mmHg BP Diastolic Sitting 80 mmHg Body Temperature 98.3 F Pain Level 7 BMI (Body Mass Index) 23.9 kg/m2 04/04/2019 1:12pm Height 63 inches 5'3" Weight 135.00 lb BP Systolic 118 mmHg BP Diastolic 76 mmHg Body Temperature 97.8 F BMI (Body Mass Index) 23.9 kg/m2 Results Test Date Facility Test Result H/L Range Note Urine Drug 01/05/20 [facility] Urine Presumptive Abnormal None 1 [facility] ED & [address] Amphetamine Posi <SEE NOTE> [place] [address] Screen [phone] Urine Barbiturates Screen None Detected None Detect Urine Benzodiazepine Screen None Detected None Detect Urine Cannabinoids Screen Presumptive Posi <SEE NOTE> Abnormal None Detect 2 Urine Cocaine Screen Presumptive Posi <SEE NOTE> Abnormal None Detect 3 Urine Opiates Screen None Detected None Detect Urine Phencyclidine Screen None Detected None Detect 4 Wound 01/04/2019 [facility] Wound/Misc SEE RESULT 5 Culture/Sensi [address] [place] [address] Stain [phone] CBC Auto Diff 01/03/2019 [facility] White Blood 11.0 High 3.5 - [address] Count 10^3/uL 10.8 [place] [address] [phone] Red Blood Count 4.51 10^6/uL Normal 3.70-4.87 [...] Blood Cells % 0 Comp Metabolic 01/03/2019 [facility] Sodium 136 mmol/L Normal 135-[address] [place] [address] [phone] Potassium 3.0 mmol/L Low 3.5-5.0 Chloride 96 [...] Egfr 96.2 >60 6 Laboratory test 01/03/2019 [facility] HCG 1.24 mIU/mL [address] [place] [address] [phone] Acetaminophen < 15 g/mL 8 Alcohol < 10 mg/dL Normal <10 Salicylate < 2.50 mg/dL <30 TSH (Thyroid Stim Horm) 0.79 mcIU/mL Normal 0.34-5.60 Lactic Acid 0.9 mmol/L Normal 0.5-2.0 9 C Reactive Protein 78.29 mg/L High <8.01 Erythrocyte Sed Rate > 120 mm/Hr High 0-19 Drug Abuse 11/15/2018 [facility] Urine Presumptive Abnormal [address] Amphetamine Posi <SEE NOTE> [place] [address] ng/mL [phone] Urine Barbiturates Negative ng/mL 11 Urine Benzodiazepines Negative ng/mL 12 Urine Cocaine Negative ng/mL 13 Urine Phencyclidine Negative ng/mL Cutoff: 25 Urine Tetrahydrocannabinol Negative ng/mL Cutoff: 50 14 Creatinine, Urine 160.5 mg/dL Specific Bowl[place] 1.011 pH 5.4 Oxidants Negative 15 Adulterants Comment Normal Codeine, Ur Not Detected ng/mL Cutoff: 25 16 Lhwcgvz-5-nugg-glucuronide, Ur Not Detected ng/mL 17 Morphine, Ur Not Detected ng/mL Cutoff: 25 18 Fgonzjfq-8-czmu-glucuronide, U Not Detected ng/mL 19 6-monoacetylmorphine, Ur Not Detected ng/mL Cutoff: 25 20 Hydrocodone, Ur Not Detected ng/mL Cutoff: 25 21 Norhydrocodone, Ur Not Detected ng/mL Cutoff: 25 22 Dihydrocodeine, Ur Not Detected ng/mL Cutoff: 25 23 Hydromorphone, Ur Not Detected ng/mL Cutoff: 25 24 Vfckhxzdyqque9tzwzauvbhvkobuw Not Detected ng/mL 25 Oxycodone, Ur Not Detected ng/mL Cutoff: 25 26 Noroxycodone, Ur Not Detected ng/mL Cutoff: 25 27 Oxymorphone, Ur Not Detected ng/mL Cutoff: 25 28 Eqjihdpzmyl-2-upve-glucuronide Not Detected ng/mL 29 Noroxymorphone, Ur Not Detected ng/mL Cutoff: 25 30 Fentanyl, Ur Not Detected ng/mL Cutoff: 2 31 Norfentanyl, Ur Not Detected ng/mL Cutoff: 2 32 Meperidine, Ur Not Detected ng/mL Cutoff: 25 33 Normeperidine, Ur Not Detected ng/mL Cutoff: 25 34 Naloxone, Ur Not Detected ng/mL Cutoff: 25 35 Didvsanf-3-noiz-glucuronide, U Not Detected ng/mL 36 Methadone, Ur [...] Ur Not Detected ng/mL Cutoff: 50 44 Beeojcxkvm-dnqi-tlmakswzscu, U Not Detected ng/mL 45 Buprenorphine, Ur Not Detected ng/mL Cutoff: 5 46 Norbuprenorphine, Ur See Comment ng/mL Cutoff: 5 47 Norbuprenorphine glucuronide Present ng/mL Abnormal Cutoff: 20 48 Opioid Interpretation See Comment 49 Urine 11/15/2018 [facility] Urine Negative Cutoff: [address] Amphetamine by ng/[place] [address] GC/MS [phone] Urine Methamphetamine by GC/MS Negative ng/mL Cutoff: 25 Phentermine-by GC/MS Negative ng/mL Cutoff: 25 Pseudoephedrine/Ephedr GC/MS Negative ng/mL Cutoff: 25 Mda(Ecstacy metabolite) GC/MS Negative ng/mL Cutoff: 25 Mdma(Ecstacy)-by GC/MS Negative ng/mL Cutoff: 25 Urine Amphetamines Interp Negative. 50 1 Presumptive Positive Presumptive positive results are [...] [address]: Radha Ruvalcaba MD Acct: [id number] Unit: [id number] AGE: 48 Location: [facility] 403-01 Re01/04/19 SEX: F Status: ADM IN SPEC: [id number] AGUILA: 01/04/[address]: Alec JESUS REQ: [id number] RECD: 01/04/19 STATUS: RES OT DR: Jeovany Lucio MD _ SOURCE: FOOT,LEFT SPDESC: ORDERED: Culture Stain Procedure Result Reported Site Wound/Misc Gram Stain Final 01/04/19- 0807 ML 2+ Epithelial Cells 1+ Neutrophils 1+ Gram Positive Cocci 1+ Gram Negative Bacilli Wound/Misc Culture PENDING * ML - Main Lab . END OF REPORT DEPARTMENT OF PATHOLOGY, [address] [place] [address] Panchito Steve M.D. Director [facility] # [id number] 6 Because ethnic data is not always [...] <50 ug/mL Toxic concentration: >120 ug/mL 9 [place] Severe Sepsis and Septic Shock Management Bundle [...] 100 20 Metabolite of heroin 21 Lortab, [place], Vicodin; Also a very minor metabolite of [...] developed and its performance characteristics determined by [facility] in a manner consistent with CLIA requirements. This test has not been cleared or approved by the U.S. Food and Drug Administration. Test Performed by: [facility] - [address] [address] ADDITIONAL INFORMATION This report is intended for use in clinical monitoring and management of patients. It is not intended for use in employment-related testing. This test was developed and its performance characteristics determined by [facility] in a manner consistent with CLIA requirements. This test has not been cleared or approved by the U.S. Food and Drug Administration. Test Performed by: [address] [address] Procedures Date Code Description Status 01/16/2019 49282 Amputation Leg Through Tibia & Fibula Completed 01/16/2019 53048 Amputation Leg Through Tibia & Fibula Completed 01/07/2019 49497 Negative Pressure Wound Therapy Less Than 50 Square CM Completed 01/07/2019 21503 Debridement Skin,& sq Tissue Completed 01/07/2019 15581 Debridement Skin,& sq Tissue Completed 01/04/2019 01242 Deep Dissection Below Fascia Foot Infection Bursal Space [facility] Description No Information Available Encounters Type Date Location Provider Dx Diagnosis Office Visit 01/31/2019 [facility] Mary Renteria MD Z89.512 Acquired absence 9:14a Assoc,pc of left leg below Hospitalists knee F41.9 Anxiety disorder, unspecified Z79.891 assisted (current) use of opiate analgesic Office Visit 01/25/2019 [facility] Ava M86.672 Other chronic 10:02a leandro Farley D.O. osteomyelitis, left Hospitalists ankle and foot Z89.512 Acquired absence of left leg below knee R45.851 Suicidal ideations L97.528 Non-prs chronic ulcer oth prt left foot with oth severity F19.10 Other psychoactive substance abuse, uncomplicated F43.10 Post-traumatic stress disorder, unspecified L03.116 Cellulitis of left lower limb Z79.891 assisted (current) use of opiate analgesic [facility] Peripheral Assocleandro D.O. vascular disease, Hospitalists unspecified M86.9 Osteomyelitis, unspecified F19.20 Other psychoactive substance dependence, uncomplicated F41.9 Anxiety disorder, unspecified F17.200 Nicotine dependence, unspecified, uncomplicated Z89.512 Acquired absence of left leg below knee Z79.891 cook helper dessert (current) use of opiate analgesic [facility] I95.9 Hypotension, 10:02a Assocleandro MD unspecified Hospitalists M86.9 Osteomyelitis, unspecified I73.9 Peripheral vascular disease, unspecified F41.9 Anxiety disorder, unspecified Z89.512 Acquired absence of left leg below knee Office Visit 01/22/2019 [facility] Dionisio Curiel I95.9 Hypotension, 10:01a Assocleandro MD unspecified Hospitalists M86.9 Osteomyelitis, unspecified F41.9 Anxiety disorder, unspecified I73.9 Peripheral vascular disease, unspecified Z89.512 Acquired absence of left leg below knee Office Visit 01/21/2019 10:00a [facility] Dionisio Moisés Z89.512 Acquired Assocleandro MD absence of Hospitalists left leg below knee I95.9 Hypotension, unspecified I73.9 Peripheral vascular disease, unspecified M86.9 Osteomyelitis, unspecified F12.20 Cannabis dependence, uncomplicated F14.20 Cocaine dependence, uncomplicated Z79.891 assisted (current) use of opiate analgesic Office Visit 01/20/2019 10:00a [facility] Dionisio Moisés Z89.512 Acquired Assocleandro MD absence of Hospitalists left leg below knee I95.9 Hypotension, unspecified I73.9 Peripheral vascular disease, unspecified M86.9 Osteomyelitis, unspecified F12.20 Cannabis dependence, uncomplicated F14.20 Cocaine dependence, uncomplicated Z79.891 cook helper dessert (current) use of opiate analgesic Office 01/19/2019 [facility] M86.172 Other acute Visit 6:02a Infectious 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 unspecified Hospitalists F41.9 Anxiety disorder, unspecified Z89.512 Acquired absence of left leg below knee Office 01/17/2019 [facility] M86.172 Other acute Visit 6:01a Geraldine Meehan, PASTEURIZING MACHINE OPERATOR osteomyelitis, Diseases left ankle and foot Office 01/17/2019 [facility] Rahda Ruvalcaba, F41.9 Anxiety disorder, Visit 9:59a Assocleandro M.D. unspecified Hospitalists F14.20 Cocaine dependence, uncomplicated F12.20 Cannabis dependence, uncomplicated I95.9 Hypotension, unspecified I73.9 Peripheral vascular disease, unspecified Z89.512 Acquired absence of left leg below knee Z79.891 assisted (current) use of opiate analgesic Office Visit 01/16/2019 [facility] Radha Ruvalcaba, F41.9 Anxiety disorder, 9:58a Assleandro reidD. 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 unspecified Hospitalists M86.9 Osteomyelitis, unspecified F12.20 Cannabis dependence, uncomplicated F14.20 Cocaine dependence, uncomplicated I95.9 Hypotension, unspecified Z79.891 cook helper dessert (current) use of opiate analgesic Office Visit 01/14/2019 [facility] Radha Ruvalcaba, F41.9 Anxiety disorder, 9:57a leandro Farley M.D. unspecified Hospitalists M86.9 Osteomyelitis, unspecified F12.20 Cannabis dependence, uncomplicated F14.20 Cocaine dependence, uncomplicated I95.9 Hypotension, unspecified Z79.891 cook helper dessert (current) use of opiate analgesic Office Visit 01/13/2019 [facility] Radha Ruvalcaba, F41.9 Anxiety disorder, 9:57a leandro FarleyD. 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 osteomyelitis, Diseases left ankle and foot Office 01/11/2019 [facility] Kay Horton, K59.00 Constipation, Visit 9:56a Assoc,pc DO unspecified Hospitalists M86.9 Osteomyelitis, unspecified I73.9 Peripheral vascular disease, unspecified Z79.891 assisted (current) use of opiate analgesic Office Visit 01/10/2019 [facility] Kay K59.00 Constipation, 9:55a Assoc,pc Senner, unspecified Hospitalists I73.9 Peripheral vascular disease, unspecified M86.9 Osteomyelitis, unspecified B96.89 Oth bacterial agents as the cause of diseases [facility] Z79.891 cook helper dessert (current) use of opiate analgesic Office Visit 01/10/2019 [facility] M86.172 Other acute 7:46a For Infectious Meehan, PASTEURIZING MACHINE OPERATOR osteomyelitis, left Diseases ankle and foot L03.116 Cellulitis of left lower limb Office Visit 01/09/2019 [facility] Kay K59.00 Constipation, 9:55a Assocleandro, DO unspecified Hospitalists M86.9 Osteomyelitis, unspecified I73.9 Peripheral vascular disease, unspecified Z79.891 cook helper dessert (current) use of opiate analgesic Office Visit 01/09/2019 [facility] L03.116 Cellulitis of 7:45a For Infectious Meehan, PASTEURIZING MACHINE OPERATOR left lower limb Diseases M86.172 Other acute osteomyelitis, left ankle and foot Office Visit 01/08/2019 [facility] Radha Ruvalcaba, F41.9 Anxiety disorder, 9:55a leandro Farley M.D. unspecified Hospitalists M86.672 Other chronic osteomyelitis, left ankle and foot G89.29 Other chronic pain F12.20 Cannabis dependence, uncomplicated F14.20 Cocaine dependence, uncomplicated I95.9 Hypotension, unspecified Z79.891 assisted (current) use of opiate analgesic Office Visit 01/08/2019 [facility] M86.172 Other acute 7:41a For Infectious Meehan, PASTEURIZING MACHINE OPERATOR osteomyelitis, left Diseases ankle and foot L03.116 Cellulitis of left lower limb Office Visit 01/07/2019 [facility] Radha Ruvalcaba, F41.9 Anxiety disorder, 9:54a Assleandro reid M.D. unspecified Hospitalists M86.672 Other chronic osteomyelitis, left ankle and foot G89.29 Other chronic pain F12.20 Cannabis dependence, uncomplicated F14.20 Cocaine dependence, uncomplicated Z79.891 assisted (current) use of opiate analgesic Office Visit 01/06/2019 [facility] Radha Ruvalcaba, F41.9 Anxiety disorder, 9:54a Assoc,pc M.D. unspecified Hospitalists M86.672 Other chronic osteomyelitis, left ankle and foot G89.29 Other chronic pain F12.20 Cannabis dependence, uncomplicated F14.20 Cocaine dependence, uncomplicated Z79.891 cook helper dessert (current) use of opiate analgesic Office Visit 01/05/2019 [facility] Radha Ruvalcaba, F41.9 Anxiety disorder, 9:53a leandro FarleyD. unspecified Hospitalists M86.672 Other chronic osteomyelitis, left ankle and foot F12.20 Cannabis dependence, uncomplicated F14.20 Cocaine dependence, uncomplicated Office Visit 01/04/2019 9:53a [facility] Venus L03.116 Cellulitis of Assoc,pc Rooth, DO left lower limb Hospitalists L97.529 Non-pressure chronic ulcer oth prt left foot w unsp severity R45.851 Suicidal ideations S92.352A Disp fx of fifth metatarsal bone, left foot, init F12.90 Cannabis use, unspecified, uncomplicated F14.10 Cocaine abuse, uncomplicated Assessments Date Code Description Provider 05/08/2019 Z47.81 Encounter for orthopedic aftercare Cj [...] absence of left leg below ANN MARIE Trevino-C knee 02/06/2019 R41.82 Altered mental status, unspecified Radha Ruvalcaba M.D. 02/06/2019 Z79.891 assisted (current) use of opiate Radha Ruvalcaba M.D. analgesic 01/31/2019 Z89.512 Acquired absence of left leg below Mary Renteria MD knee 01/31/2019 F41.9 Anxiety disorder, unspecified Mary Renteria MD 01/31/2019 Z79.891 assisted (current) use of opiate Mary Renteria MD analgesic 01/30/2019 Z89.512 Acquired absence of left leg below Cj Appiah MD knee 01/30/2019 Z47.81 Encounter for orthopedic aftercare Cj Appiah MD following surgical amp 01/28/2019 Z89.512 Acquired absence of left leg below Bernie Dugan RPA-Kimberley knee 01/25/2019 M86.672 Other chronic osteomyelitis, left Ava Avila D.O. ankle and foot 01/25/2019 Z89.512 Acquired absence of left leg below Ava Avila D.O. knee 01/25/2019 R45.851 Suicidal ideations Ava Avila D.O. 01/25/2019 L97.528 Non-prs chronic ulcer oth prt left Ava Avila D.O. foot with oth severity 01/25/2019 F19.10 Other psychoactive substance abuse, Ava Avila D.O. uncomplicated 01/25/2019 F43.10 Post-traumatic stress disorder, Ava Avila D.O. unspecified 01/25/2019 L03.116 Cellulitis of left lower limb Ava Avila D.O. 01/25/2019 Z79.891 cook helper dessert (current) use of opiate Ava Avila D.O. analgesic 01/24/2019 Z47.81 Encounter for orthopedic [...] Z89.512 Acquired absence of left leg below Avaalayna Avila, D.O. knee 01/24/2019 Z79.891 assisted (current) use of opiate Ava Austin, D.O. [...] dependence, uncomplicated Dionisio Leal MD 01/21/2019 Z79.891 cook helper dessert (current) use of opiate Dionisio Leal MD analgesic 01/20/2019 Z89.512 Acquired absence of left leg below ANN MARIE Mcdonough knee 01/20/2019 Z89.512 Acquired absence of left leg below Dionisio Leal MD knee 01/20/2019 I95.9 Hypotension, unspecified Dionisio Leal MD 01/20/2019 I73.9 Peripheral vascular disease, Dionisio Leal MD unspecified 01/20/2019 M86.9 Osteomyelitis, unspecified Dionisio Leal MD 01/20/2019 F12.20 Cannabis dependence, uncomplicated Dinoisio Leal MD 01/20/2019 F14.20 Cocaine dependence, uncomplicated Dionisio Leal MD 01/20/2019 Z79.891 cook helper dessert (current) use of opiate Dionisio Leal MD [...] dependence, uncomplicated Dionisio Leal MD 01/19/2019 Z79.891 assisted (current) use of opiate Dionisio Leal MD analgesic 01/18/2019 Z89.512 Acquired absence of left leg below ANN MARIE Lopez knee 01/18/2019 I95.9 Hypotension, unspecified Radha Ruvalcaba M.D. 01/18/2019 F41.9 Anxiety disorder, unspecified Radha Ruvalcaba M.D. 01/18/2019 Z89.512 Acquired absence of left leg below Radha Ruvalcaba M.D. knee 01/17/2019 M86.172 Other acute osteomyelitis, left Mirna Imani Meehan NP ankle and foot 01/17/2019 Z89.512 Acquired absence of left leg below ANN MARIE Lopez knee 01/17/2019 F41.9 Anxiety disorder, unspecified Radha Ruvalcaba M.D. 01/17/2019 F14.20 Cocaine dependence, uncomplicated Radha Ruvalcaba M.D. 01/17/2019 F12.20 Cannabis dependence, imelda Ruvalcaba M.D. 01/17/2019 I95.9 Hypotension, unspecified Radha Ruvalcaba M.D. 01/17/2019 I73.9 Peripheral vascular disease, Radha Ruvalcaba M.D. unspecified 01/17/2019 Z89.512 Acquired absence of left leg below Radha Ruvalcaba M.D. knee 01/17/2019 Z79.891 assisted (current) use of opiate Radha Ruvalcaba M.D. analgesic 01/16/2019 F41.9 Anxiety disorder, unspecified Radha Ruvalcaba M.D. 01/16/2019 Z47.89 Encounter for other orthopedic Cj Appiah MD aftercare 01/16/2019 M86.9 Osteomyelitis, unspecified Radha Ruvalcaba M.D. 01/16/2019 M86.672 Other chronic osteomyelitis, left ILIANA Marie ankle and foot 01/16/2019 I73.9 Peripheral vascular disease, Radha Ruvalcaba M.D. unspecified 01/16/2019 M86.672 Other chronic osteomyelitis, left Cj Appiah MD ankle and foot 01/16/2019 F12.20 Cannabis dependence, uncomplicated Radha Ruvalcaba M.D. 01/16/2019 L97.528 Non-prs chronic ulcer oth prt left Brittany Hardin RPA-C foot with oth severity 01/16/2019 F14.20 Cocaine dependence, uncomplicated Radha Ruvalcaba M.D. 01/16/2019 B99.9 Unspecified infectious disease Brittany Hardin RPA-C 01/16/2019 I95.9 Hypotension, unspecified Radha Ruvalcaba M.D. 01/16/2019 L97.528 Non-prs chronic ulcer oth prt left Cj Appiah MD foot with oth severity 01/16/2019 Z79.891 cook helper dessert (current) use of opiate Rdaha Ruvalcaba M.D. analgesic 01/16/2019 B99.9 Unspecified infectious disease Cj Appiah MD 01/15/2019 M86.172 Other acute osteomyelitis, left Mirna Meehan NP ankle and foot 01/15/2019 Z89.512 Acquired absence of left leg below ANN MARIE Lopez knee 01/15/2019 F41.9 Anxiety disorder, unspecified Radha Ruvalcaba M.D. 01/15/2019 L03.116 Cellulitis of left lower limb Cj Appiah MD 01/15/2019 M86.9 Osteomyelitis, unspecified Radha Ruvalcaba M.D. 01/15/2019 F12.20 Cannabis dependence, uncomplicated Radha Ruvalcaba M.D. 01/15/2019 F14.20 Cocaine dependence, uncomplicated Radha Ruvalcaba M.D. 01/15/2019 I95.9 Hypotension, unspecified Radha Ruvalcaba M.D. 01/15/2019 Z79.891 cook helper dessert (current) use of opiate Radha Ruvalcaba M.D. analgesic 01/14/2019 F41.9 Anxiety disorder, unspecified Dk CraneDSandra 01/14/2019 M86.9 Osteomyelitis, unspecified Radha Ruvalcaba M.D. 01/14/2019 F12.20 Cannabis dependence, uncomplicated Radha Ruvalcaba M.D. 01/14/2019 F14.20 Cocaine dependence, uncomplicated Radha Ruvalcaba M.D. 01/14/2019 I95.9 Hypotension, unspecified Radha Ruvalcaba M.D. 01/14/2019 Z79.891 cook helper dessert (current) use of opiate Radha Ruvalcaba M.D. analgesic 01/13/2019 F41.9 Anxiety disorder, unspecified Radha Ruvalcaba M.D. 01/13/2019 F14.20 Cocaine dependence, uncomplicated Radha Ruvalcaba M.D. 01/13/2019 F12.20 Cannabis dependence, uncomplicated Radha Ruvalcaba M.D. 01/13/2019 M86.9 Osteomyelitis, unspecified Radha Ruvalcaba M.D. 01/13/2019 Z79.891 assisted (current) use of opiate Radha Ruvalcaba M.D. analgesic 01/12/2019 Z89.512 Acquired absence of left leg below Bernie Ritchie, RPA-C knee 01/12/2019 K59.00 Constipation, unspecified Kay Senner, DO 01/12/2019 M86.172 Other acute osteomyelitis, left Mirna Meehan , PASTEURIZING MACHINE OPERATOR ankle and foot 01/12/2019 M86.9 Osteomyelitis, unspecified Kay Senner, DO 01/12/2019 L03.116 Cellulitis of left lower limb Cj Appiah MD 01/12/2019 I73.9 Peripheral vascular disease, Kay Senner, DO unspecified 01/12/2019 Z79.891 cook helper dessert (current) use of opiate Kay Senner, DO analgesic 01/11/2019 K59.00 Constipation, unspecified Kay Senner, DO 01/11/2019 Z47.89 Encounter for other orthopedic Cj Appiah MD aftercare 01/11/2019 M86.9 Osteomyelitis, unspecified Kay Senner, DO 01/11/2019 I73.9 Peripheral vascular disease, Kay Senner, DO unspecified 01/11/2019 Z79.891 cook helper dessert (current) use of opiate Kay Senner, DO analgesic 01/10/2019 K59.00 Constipation, unspecified Kay Senner, DO 01/10/2019 Z47.89 Encounter for other orthopedic ANN MARIE Lopez aftercare 01/10/2019 I73.9 Peripheral vascular disease, Kay Senner, DO unspecified 01/10/2019 M86.172 Other acute osteomyelitis, left Mirna Meehan , PASTEURIZING MACHINE OPERATOR ankle and foot 01/10/2019 M86.9 Osteomyelitis, unspecified Kay Senner, DO 01/10/2019 L03.116 Cellulitis of left lower limb Cj Appiah MD 01/10/2019 B96.89 Ot bacterial agents as the cause of Kay Senner, DO diseases classd elswhr 01/10/2019 L03.116 Cellulitis of left lower limb Mirna Meehan, PASTEURIZING MACHINE OPERATOR 01/10/2019 Z79.891 assisted (current) use of opiate Kay Senvinny, DO analgesic 01/09/2019 K59.00 Constipation, unspecified Kay Senner, DO 01/09/2019 M86.172 Other acute osteomyelitis, left ANN MARIE Lopez ankle and foot 01/09/2019 M86.9 Osteomyelitis, unspecified Kay Senner, DO 01/09/2019 L03.116 Cellulitis of left lower limb Mirna Meehan, PASTEURIZING MACHINE OPERATOR 01/09/2019 I73.9 Peripheral vascular disease, Kay Senner, DO unspecified 01/09/2019 M86.172 Other acute osteomyelitis, left Mirna Meehan , PASTEURIZING MACHINE OPERATOR ankle and foot 01/09/2019 Z79.891 cook helper dessert (current) use of opiate Kay Sol, DO [...] Other acute osteomyelitis, left Mirna Meehan , PASTEURIZING MACHINE OPERATOR ankle and foot 01/08/2019 F14.20 Cocaine dependence, uncomplicated Radha Ruvalcaba M.D. 01/08/2019 I95.9 Hypotension, unspecified Radha Ruvalcaba M.D. 01/08/2019 L03.116 Cellulitis of left lower limb Mirna Meehan, PASTEURIZING MACHINE OPERATOR 01/08/2019 Z79.891 cook helper dessert (current) use of opiate Radha Ruvalcaba M.D. analgesic 01/07/2019 F41.9 Anxiety disorder, unspecified Radha Ruvalcaba M.D. 01/07/2019 L97.528 Non-prs chronic ulcer oth prt left Cris NESTOR Mayorga-C foot with oth severity 01/07/2019 M86.672 Other chronic osteomyelitis, left Radha Ruvalcaba M.D. ankle and foot 01/07/2019 L97.528 Non-prs chronic ulcer oth prt left Jorge Luis Wen M.D. foot with oth severity 01/07/2019 G89.29 Other chronic pain Radha Ruvalcaba M.D. 01/07/2019 F12.20 Cannabis dependence, uncomplicated Radha Ruvalcaba M.D. 01/07/2019 F14.20 Cocaine dependence, uncomplicated Radha Ruvalcaba M.D. 01/07/2019 Z79.891 cook helper dessert (current) use of opiate Radha Ruvalcaba M.D. analgesic 01/06/2019 F41.9 Anxiety disorder, unspecified Radha Ruvalcaba M.D. 01/06/2019 M86.672 Other chronic osteomyelitis, left Radha Ruvalcaba M.D. ankle and foot 01/06/2019 G89.29 Other chronic pain Radha Ruvalcaba M.D. 01/06/2019 F12.20 Cannabis dependence, uncomplicated Radha Ruvalcaba M.D. 01/06/2019 F14.20 Cocaine dependence, uncomplicated Radha Ruvalcaba M.D. 01/06/2019 Z79.891 cook helper dessert (current) use of opiate Radha Ruvalcaba M.D. analgesic 01/05/2019 F41.9 Anxiety disorder, unspecified Radha Ruvalcaba M.D. 01/05/2019 Z47.89 Encounter for other orthopedic ILIANA Blackwell aftercare 01/05/2019 M86.672 Other chronic osteomyelitis, left Radha Ruvalcaba M.D. ankle and foot 01/05/2019 L03.116 Cellulitis of left lower limb ILIANA Blackwell 01/05/2019 F12.20 Cannabis dependence, uncomplicated Radha Ruvalcaba M.D. 01/05/2019 F14.20 Cocaine dependence, uncomplicated Radha Ruvalcaba M.D. 01/04/2019 L03.116 Cellulitis of left lower limb Venus Amado, DO 01/04/2019 B99.9 Unspecified infectious disease Cj Appiah MD 01/04/2019 L97.529 Non-pressure chronic ulcer oth prt Venus Amado, DO left foot w unsp severity 01/04/2019 L97.528 Non-prs chronic ulcer oth prt left Cj Appiah MD foot with oth severity 01/04/2019 R45.851 Suicidal ideations Venus Amado, DO 01/04/2019 S92.352A Disp fx of fifth metatarsal bone, Venus Amado, DO left foot, init 01/04/2019 F12.90 Cannabis use, unspecified, Venus Amado, DO uncomplicated 01/04/2019 F14.10 Cocaine abuse, uncomplicated Venus Amado, DO 12/27/2018 L03.116 Cellulitis of left lower limb Cj Appiah MD 12/07/2018 M54.31 Sciatica, right side Jorge Luis Wen M.D. 11/14/2018 T79.A0xD Compartment syndrome, unspecified, Jorge Luis Wen M.D. subsequent encounter 11/14/2018 M54.31 Sciatica, right side Jorge Luis Wen M.D. 11/10/2018 T79.A0xD Compartment syndrome, unspecified, [facility] subsequent encounter 11/10/2018 N17.9 Acute kidney failure, unspecified Jeovany Huang M.D., FACP 11/10/2018 M62.82 Rhabdomyolysis [facility] Plan of Treatment 05/08/2019 - Cj Appiah MDZ47.81 Encounter for orthopedic aftercare following surgical rmyxlkodvlM21.512 Acquired absence of left leg below kneeFollow up:Follow Up: As needed Functional Status Description No Information Available Mental Status Description No Information Available Referrals Refer to Reason for Referral Status Appt Date [facility] Please start left TKA stump Sent shrinking process and fitting for prosthesis [address] [place] [address] [phone]
[2019-07-06] MEDS: Nicotine* 2MG (FRUIT FLAVOR) GUM PO PRN (14:46)
[2019-07-06 14:50] LABS: ALT 11 U/L (7-52); AST 11 U/L (13-39); Albumin 4.3 g/dL (3.2-5.2); Albumin/Globulin Ratio 1.5 (1-3); Alkaline Phosphatase 79 U/L (34-104); Anion Gap 9 mmol/L (2-11); BUN/Creatinine Ratio 18.5 (8-20); Blood Urea Nitrogen 15 mg/dL (6-24); CO2 Carbon Dioxide 23 mmol/L (22-32); Calcium 9.2 mg/dL (8.6-10.3); Chloride 105 mmol/L (101-111); EGFR African American 92.1 (>60); EGFR Non-African American 76.1 (>60); Globulin 2.8 g/dL (2-4); Glucose 98 mg/dL (70-100); Potassium 3.6 mmol/L (3.5-5.0); Sodium 137 mmol/L (135-145); Total Protein 7.1 g/dL (6.4-8.9)
[2019-07-06 15:00] LABS: Acetaminophen < 15 mcg/mL; Alcohol < 10 mg/dL (<10); Salicylate < 2.50 mg/dL (<30)
[2019-07-06 15:12] LABS: TSH (Thyroid Stimulating Horm) 0.68 mcIU/mL (0.34-5.60)
[2019-07-06 15:44] LABS: Urine Appearance Cloudy; Urine Bilirubin Negative (Negative); Urine Blood Negative (Negative); Urine Color Yellow; Urine Glucose Negative (Negative); Urine Ketones 1+ (Negative); Urine Nitrite Negative (Negative); Urine Protein Negative (Negative); Urine Specific Gravity 1.027 (1.010-1.030); Urine Urobilinogen Negative (Negative)
[2019-07-06 16:12] LABS: Urine Benzodiazepine Screen None Detected (None Detect); Urine Opiates Screen None Detected (None Detect)
[2019-07-06] MEDS ORDERED: Acetaminophen TAB* 325 MG PO PRN ×2 (17:45→19:19)
[2019-07-06] MEDS ORDERED: Al Hydrox/Mg Hydrox/Simet LIQ* 30 ML UDC PO PRN ×2 (17:45→19:19)
[2019-07-06] MEDS: Pregabalin CAP(*) 25 MG PO SCH (21:23)
[2019-07-06] MEDS: Methadone TAB* 10 MG PO SCH (21:24)
[2019-07-06] MEDS: traZODone TAB* 100 MG PO SCH (21:24)
[2019-07-06] MEDS ORDERED: Montelukast Sodium TAB* 10 MG PO SCH (21:30)
[2019-07-07] MEDS ORDERED: Vitamin THERAPEUTIC TAB PO SCH (09:00)
[2019-07-07] MEDS: Pregabalin CAP(*) 25 MG PO SCH ×3 (09:08→22:25)
[2019-07-07] MEDS: LORazepam TAB(*) 0.5 MG PO PRN ×2 (09:08→22:57)
[2019-07-07] MEDS: Vitamin THERAPEUTIC TAB PO SCH (09:09)
[2019-07-07] MEDS: Cetirizine* 10 MG TAB PO SCH (09:09)
[2019-07-07] MEDS: Methadone TAB* 10 MG PO SCH ×3 (09:10→22:25)
[2019-07-07] MEDS: Pantoprazole TAB * 40 MG TAB PO SCH (09:10)
[2019-07-07] MEDS: Nicotine* 2MG (FRUIT FLAVOR) GUM PO PRN ×4 (09:19→22:25)
[2019-07-07] MEDS: Montelukast Sodium TAB* 10 MG PO SCH (15:42)
[2019-07-07] MEDS: FLUoxetine CAP* 20 MG PO SCH (15:42)
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
[2019-07-07] MEDS: traZODone TAB* 100 MG PO SCH (22:25)
[2019-07-08] MEDS: Pregabalin CAP(*) 25 MG PO SCH ×3 (08:58→21:35)
[2019-07-08] MEDS: LORazepam TAB(*) 0.5 MG PO PRN ×2 (08:59→21:39)
[2019-07-08] MEDS: Methadone TAB* 10 MG PO SCH ×3 (08:59→21:35)
[2019-07-08] MEDS: Montelukast Sodium TAB* 10 MG PO SCH (09:00)
[2019-07-08] MEDS: FLUoxetine CAP* 20 MG PO SCH (09:00)
[2019-07-08] MEDS: Cetirizine* 10 MG TAB PO SCH (09:00)
[2019-07-08] MEDS: Nicotine* 2MG (FRUIT FLAVOR) GUM PO PRN ×4 (09:01→21:40)
[2019-07-08] MEDS: Vitamin THERAPEUTIC TAB PO SCH (09:01)
[2019-07-08] MEDS: Pantoprazole TAB * 40 MG TAB PO SCH (09:01)
[2019-07-08] MEDS: traZODone TAB* 100 MG PO SCH (21:34)
[2019-07-09] MEDS: Methadone TAB* 10 MG PO SCH ×3 (09:14→21:32)
[2019-07-09] MEDS: Vitamin THERAPEUTIC TAB PO SCH (09:15)
[2019-07-09] MEDS: FLUoxetine CAP* 20 MG PO SCH (09:15)
[2019-07-09] MEDS: Pregabalin CAP(*) 25 MG PO SCH ×3 (09:15→21:32)
[2019-07-09] MEDS: Montelukast Sodium TAB* 10 MG PO SCH (09:15)
[2019-07-09] MEDS: Cetirizine* 10 MG TAB PO SCH (09:15)
[2019-07-09] MEDS: Pantoprazole TAB * 40 MG TAB PO SCH (09:15)
[2019-07-09] MEDS: Nicotine* 2MG (FRUIT FLAVOR) GUM PO PRN ×4 (09:16→21:33)
[2019-07-09] MEDS: LORazepam TAB(*) 0.5 MG PO PRN (09:19)
[2019-07-09] MEDS ORDERED: hydrOXYzine HCL TAB* 50 MG PO PRN (13:50)
--- NOTE | 2019-07-09 15:30 | PN ---
Subjective - Subjective Date of Service: 07/09/19 Service Type: [id number] Hosp care 15 min low complexity Subjective: Yuki is in a bright mood but she asserts that it is only temporary, that she cried for "three hours yesterday." She states she wants to go from bed to bed to an inpatient rehab and she states she is motivated to fill out the referral forms for all the places where she will be referred. She is adamant that she needs to remain hospitalized. Throughout the day, however, Yuki presents as euthymic and pleasant. She offers advice to other patients and acts as a voice of experience. She does turn in the papers, and they will be submitted. Objective - General Observations Appearance: Neat Appears Stated Age: No - older Stature: WNL Posture: WNL Eye Contact: Intense Behavior/Activity: Accelerated - Interaction Observations Attitude Towards Examiner: Cooperative, Demanding, Manipulative Stated Mood: Elevated Affect: Restricted, Bright Speech Pattern/Tone: Clear Thought Process: Coherent, Goal Directed Perception: WNL Thought Content: WNL Hallucination Type: None Delusion Type: None - Cognitive Function Orientation: A&O x 4 Level of Consciousness: Awake, Alert, Appropriate Cognition: WNL Estimated Intelligence: Normal Insight: WNL Judgment Within Normal Limits: Yes - Medication Compliance Cooperative with Inpatient Medication Regimen: Yes - Group Participation Participates in Group Activities: Yes Assessment - Assessment Merits Inpatient Hospitalization: For Immediate Safety, For Discharge Planning Inpatient DSM-V Dx: F43.20 Clinical Impression: Yuki is a 48-year-old woman with a substance-use disorder history that is also currently active who comes to the hospital with suicidal ideation in the wake of continued substance use and medication non-adherence. Plan - Plan Treatment Plan: Name: EDD LOVING Birthdate: 1970 [id number] Yuki will fill out referrals to rehabs but will likely be discharged tomorrow. Continued Medication Management: Continue Outpt Medication Medications: Current Medications Acetaminophen (Tylenol Tab*) 650 mg PO Q4H PRN PRN Reason: for pain; or Temp >101 F Al Hydrox/Mg Hydrox/Simethicone (Maalox Plus*) 30 ml PO Q4H PRN PRN Reason: INDIGESTION Cetirizine HCl (Zyrtec*) 10 mg PO DAILY [facility] Last Admin: 07/09/19 09:15 Dose: 10 mg Fluoxetine HCl (Prozac Cap*) 40 mg PO DAILY [facility] Last Admin: 07/09/19 09:15 Dose: 40 mg Hydroxyzine HCl (Atarax Tab*) 50 mg PO Q4H PRN PRN Reason: anxiety Methadone HCl (Dolophine Tab*) 20 mg PO TID [facility] Last Admin: 07/09/19 14:02 Dose: 20 mg Montelukast Sodium (Singulair Tab*) 10 mg PO DAILY [facility] Last Admin: 07/09/19 09:15 Dose: 10 mg Multivitamins (Theragran Tab*) 1 tab PO DAILY [facility] Last Admin: 07/09/19 09:15 Dose: 1 tab Nicotine Polacrilex (Nicotine Gum*) 2 mg PO Q2H PRN PRN Reason: CRAVING Last Admin: 07/09/19 14:02 Dose: 2 mg Pantoprazole Sodium (Protonix Tab*) 40 mg PO DAILY [facility] Last Admin: 07/09/19 09:15 Dose: 40 mg Pregabalin (Lyrica Cap(*)) 75 mg PO TID [facility] Last Admin: 07/09/19 09:15 Dose: 75 mg Trazodone HCl (Desyrel Tab*) 300 mg PO BEDTIME [facility] Last Admin: 07/08/19 21:34 Dose: 300 mg
[2019-07-09] MEDS: traZODone TAB* 100 MG PO SCH (21:31)
[2019-07-10 09:05] VITALS: BP 113/78
[2019-07-10] MEDS: Pregabalin CAP(*) 25 MG PO SCH (09:06)
[2019-07-10] MEDS: Pantoprazole TAB * 40 MG TAB PO SCH (09:07)
[2019-07-10] MEDS: Vitamin THERAPEUTIC TAB PO SCH (09:07)
[2019-07-10] MEDS: Methadone TAB* 10 MG PO SCH (09:07)
[2019-07-10] MEDS: FLUoxetine CAP* 20 MG PO SCH (09:07)
[2019-07-10] MEDS: Cetirizine* 10 MG TAB PO SCH (09:07)
[2019-07-10] MEDS: Montelukast Sodium TAB* 10 MG PO SCH (09:07)
[2019-07-10] MEDS: Nicotine* 2MG (FRUIT FLAVOR) GUM PO PRN (09:08)
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
== END 2019-07-10 12:15 | disposition home or self-care (01) | DRG 881 ==
LOC: ED 13:49 → BSU 17:45 → ED 17:55
PROVIDERS: ADMIT Psychiatry & Neurology Psychiatry; ATTEND Psychiatry & Neurology Psychiatry
DX: F32.9 Major depressive disorder, single episode, unspecified (principal); R45.851 Suicidal ideations; F14.90 Cocaine use, unspecified, uncomplicated; F12.90 Cannabis use, unspecified, uncomplicated; F43.20 Adjustment disorder, unspecified; Z62.810 Personal history of physical and sexual abuse in childhood; K21.9 Gastro-esophageal reflux disease without esophagitis; T79.A22D Traumatic compartment syndrome of left lower extremity, subsequent encounter; J45.909 Unspecified asthma, uncomplicated; Z89.512 Acquired absence of left leg below knee; Z72.89 Other problems related to lifestyle; Z86.19 Personal history of other infectious and parasitic diseases; Z79.891 Long term (current) use of opiate analgesic; Z79.899 Other long term (current) drug therapy; Z88.8 Allergy status to other drugs, medicaments and biological substances; Z81.8 Family history of other mental and behavioral disorders
CPT/HCPCS: 36415; 80053; 80307; 80320; 80329; 81003; 84443; 85025; 99222; 99231; 99238; 99285; A9270-GY; G0480

== ENCOUNTER 2019-08-18 08:40 | Emergency (ER) | payer MEDICARE, MEDICAID ==
[2019-08-18] MEDS ORDERED: Bacitracin OINTMENT* 0.5% 0.5 oz TUBE TOPICAL ONE (09:34)
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
[2019-08-18] MEDS: Acetaminophen TAB* 325 MG PO ONE ×2 (09:49→10:02)
[2019-08-18 10:40] LABS: ABS Basophils 0.1 10^3/ul (0-0.2); ABS Eosinophils 0.1 10^3/ul (0-0.6); ABS Lymphocytes 1.7 10^3/ul (1.0-4.8); ABS Monocytes 1.1 10^3/ul (0-0.8); ABS Neutrophils 9.9 10^3/ul (1.5-7.7); Eosinophil % 0.7 %; Hematocrit 39 % (35-47); Hemoglobin 13.3 g/dL (12.0-16.0); Lymphocyte % 13.1 %; Mean Corpuscular HGB Conc 34 g/dL (31-36); Mean Corpuscular Hemoglobin 28 pg (27-31); Mean Corpuscular Volume 82 fL (80-97); Mean Platelet Volume 7.9 fL (7.4-10.4); Platelet Count 243 10^3/uL (150-450); Red Blood Count 4.74 10^6 /uL (3.70-4.87); Red Cell Distribution Width 16 % (10-15); White Blood Count 12.9 10^3/uL (3.5-10.8)
[2019-08-18 10:59] LABS: ALT 22 U/L (7-52); AST 43 U/L (13-39); Albumin 4.4 g/dL (3.2-5.2); Albumin/Globulin Ratio 1.8 (1-3); Alkaline Phosphatase 107 U/L (34-104); Anion Gap 15 mmol/L (2-11); BUN/Creatinine Ratio 24.6 (8-20); Blood Urea Nitrogen 16 mg/dL (6-24); CO2 Carbon Dioxide 21 mmol/L (22-32); Chloride 99 mmol/L (101-111); EGFR African American 118.7 (>60); EGFR Non-African American 98.1 (>60); Globulin 2.5 g/dL (2-4); Glucose 88 mg/dL (70-100); Potassium 3.1 mmol/L (3.5-5.0); Sodium 135 mmol/L (135-145); Total Protein 6.9 g/dL (6.4-8.9)
[2019-08-18 11:06] LABS: HCG Pregnancy < 0.60 mIU/mL
[2019-08-18] MEDS ORDERED: Potassium Chlor TAB* 20 MEQ TAB.ER PO ONE (11:07)
[2019-08-18 11:38] LABS: Alcohol < 10 mg/dL (<10)
[2019-08-18] MEDS ORDERED: Methadone TAB* 10 MG PO ONE (12:42)
[2019-08-18 12:56] LABS: HIV 4th Generation Nonreactive (Nonreactive)
[2019-08-18] MEDS ORDERED: Azithromycin TAB* 250 MG PO ONE (13:36)
[2019-08-18] MEDS ORDERED: cefTRIAXone VIAL(*) 250 MG VIAL IM ONE (13:36)
[2019-08-18] MEDS ORDERED: Lidocaine 1% MPF ** 5 ML VIAL IM ONE (13:36)
[2019-08-18] MEDS ORDERED: Levonorgestrel 1.5 MG TAB PO ONE (13:44)
[2019-08-18] MEDS ORDERED: Azithromycin TAB* 250 MG ONE (13:50)
[2019-08-18 14:29] LABS: Hepatitis B Surface Antigen Nonreactive (Nonreactive)
[2019-08-18 14:40] VITALS: BP 117/73
[2019-08-18 15:01] LABS: Hepatitis C Antibody Reactive (Negative)
== END 2019-08-18 14:10 | disposition home or self-care (01) ==
LOC: ED 08:40
DX: T74.21XA Adult sexual abuse, confirmed, initial encounter (principal); M79.671 Pain in right foot; R10.2 Pelvic and perineal pain; R51 Headache; Y07.9 Unspecified perpetrator of maltreatment and neglect; Y04.8XXA Assault by other bodily force, initial encounter; Y92.9 Unspecified place or not applicable; F17.210 Nicotine dependence, cigarettes, uncomplicated; Z96.651 Presence of right artificial knee joint; K21.9 Gastro-esophageal reflux disease without esophagitis; F41.9 Anxiety disorder, unspecified; F90.9 Attention-deficit hyperactivity disorder, unspecified type; F32.9 Major depressive disorder, single episode, unspecified; F43.10 Post-traumatic stress disorder, unspecified; Z88.5 Allergy status to narcotic agent; Z88.8 Allergy status to other drugs, medicaments and biological substances
CPT/HCPCS: 36415; 80053; 80320; 84702; 85025; 86803; 87340; 87389; 87522; 96372; 99284; A9270-GY; G0480; J0696

== ENCOUNTER 2019-10-09 08:42 | Inpatient (IN) | payer MEDICARE, MEDICAID ==
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
[2019-10-09] MEDS ORDERED: NS 0.9% 1000 ML** 1,000 ML IV ONE (08:53)
[2019-10-09 09:14] LABS: ABS Basophils 0.1 10^3/ul (0-0.2); ABS Lymphocytes 1.4 10^3/ul (1.0-4.8); ABS Monocytes 0.8 10^3/ul (0-0.8); ABS Neutrophils 7.7 10^3/ul (1.5-7.7); Eosinophil % 0.3 %; Hematocrit 40 % (35-47); Hemoglobin 13.9 g/dL (12.0-16.0); Lymphocyte % 13.6 %; Mean Corpuscular HGB Conc 35 g/dL (31-36); Mean Corpuscular Hemoglobin 29 pg (27-31); Mean Corpuscular Volume 83 fL (80-97); Mean Platelet Volume 8.3 fL (7.4-10.4); Nucleated Red Blood Cells % 0.1; Platelet Count 250 10^3/uL (150-450); Red Blood Count 4.88 10^6 /uL (3.70-4.87); Red Cell Distribution Width 15 % (10-15); White Blood Count 9.9 10^3/uL (3.5-10.8)
[2019-10-09 09:30] LABS: Albumin 4.3 g/dL (3.2-5.2); Albumin/Globulin Ratio 1.5 (1-3); BUN/Creatinine Ratio 19.6 (8-20); Calcium 9.3 mg/dL (8.6-10.3); EGFR African American 140.4 (>60); Globulin 2.9 g/dL (2-4); Potassium 3.5 mmol/L (3.5-5.0); Total Bilirubin 1.2 mg/dL (0.2-1.0); Total Protein 7.2 g/dL (6.4-8.9)
[2019-10-09] MEDS ORDERED: Methadone TAB* 10 MG PO ONE ×2 (11:33→12:00)
[2019-10-09] MEDS ORDERED: Al Hydrox/Mg Hydrox/Simet LIQ* 30 ML UDC PO PRN (13:02)
[2019-10-09] MEDS ORDERED: Acetaminophen TAB* 325 MG PO PRN (13:02)
[2019-10-09] MEDS ORDERED: Methadone TAB* 10 MG PO SCH (14:00)
--- NOTE | 2019-10-09 19:07 | PN ---
Progress Note - Progress Note Date of Service: 10/09/19 Note: INPATIENT PAIN-PROGRESS Yuki is well known to me. She is a 49 year old, has a history of IV drug use and cocaine abuse. She has a left BKA with ongoing left leg pain. She originally developed compartment syndrome after using heroin and passing out with her left leg in a strange position. I have followed her for left leg pain. She normally takes Methadone 20 mg TID and Lyrica 75 mg TID. She has had difficulty and has been struggling with cocaine since the fall. She came to the ED today complaining of chest pain after doing crack cocaine. On her last pain clinic visit with me in July, her urine tox was positive for cocaine and negative for methadone. She has an appointment tomorrow, but will likely be discharged from the pain clinic and sent to [facility] or [facility] for methadone or Suboxone for pain. She approached me on the [facility] while I was seeing another patient. She would like to go back on Lyrica and possibly, Ativan. Current Medications Acetaminophen (Tylenol Tab*) 650 mg PO Q4H PRN PRN Reason: for pain; or Temp >101 F Al Hydrox/Mg Hydrox/Simethicone (Maalox Plus*) 30 ml PO Q4H PRN PRN Reason: INDIGESTION Cetirizine HCl (Zyrtec*) 10 mg PO DAILY CONY Fluoxetine HCl (Prozac Cap*) 40 mg PO DAILY CONY Methadone HCl (Dolophine Tab*) 20 mg PO 0900,1400,2100 CONY Montelukast Sodium (Singulair Tab*) 10 mg PO DAILY CONY Pantoprazole Sodium (Protonix Tab*) 40 mg PO DAILY CONY Trazodone HCl (Desyrel Tab*) 300 mg PO BEDTIME PRN PRN Reason: INSOMNIA Vital Signs Temp Pulse Resp BP Pulse Ox 98.1 F 87 18 125/79 97 10/09/19 16:12 10/09/19 16:12 10/09/19 17:08 10/09/19 16:12 10/09/19 16:12 EXAM: EXTREMITIES: Left leg with prosthesis, appears to be functioning well GAIT: Ambulates with left BK Prosthesis and without assistive devices ASSESSMENT: 1. Left Below Knee Amputation 2. History of polysubstance abuse PLAN: I will write for her Lyrica. Will defer ativan until I speak with Dr. Morales, but she has had trouble with benzos. Continue methadone.
[2019-10-09] MEDS: Methadone TAB* 10 MG PO SCH (20:28)
[2019-10-09] MEDS: Pregabalin 25 mg CAP (*) PO SCH (20:29)
[2019-10-09] MEDS: traZODone TAB* 100 MG PO PRN (20:31)
[2019-10-10] MEDS: Pregabalin 25 mg CAP (*) PO SCH ×3 (08:24→21:16)
[2019-10-10] MEDS: Methadone TAB* 10 MG PO SCH ×3 (08:24→21:16)
[2019-10-10] MEDS: Pantoprazole TAB * 40 MG TAB PO SCH (08:24)
[2019-10-10] MEDS: Montelukast Sodium TAB* 10 MG PO SCH (08:25)
[2019-10-10] MEDS: FLUoxetine CAP* 20 MG PO SCH (08:25)
[2019-10-10] MEDS: Cetirizine* 10 MG TAB PO SCH (08:25)
[2019-10-10] MEDS: Nicotine* 2MG (FRUIT FLAVOR) GUM PO PRN ×3 (14:15→21:21)
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
[2019-10-10] MEDS: traZODone TAB* 100 MG PO PRN (21:20)
[2019-10-10] MEDS: LORazepam TAB(*) 0.5 MG PO PRN (21:20)
[2019-10-11] MEDS: Pregabalin 25 mg CAP (*) PO SCH ×3 (07:40→21:26)
[2019-10-11] MEDS: Cetirizine* 10 MG TAB PO SCH (07:40)
[2019-10-11] MEDS: FLUoxetine CAP* 20 MG PO SCH (07:40)
[2019-10-11] MEDS: Pantoprazole TAB * 40 MG TAB PO SCH (07:41)
[2019-10-11] MEDS: Montelukast Sodium TAB* 10 MG PO SCH (07:41)
[2019-10-11] MEDS: Methadone TAB* 10 MG PO SCH ×3 (07:41→20:45)
[2019-10-11] MEDS: Nicotine* 2MG (FRUIT FLAVOR) GUM PO PRN ×5 (07:42→20:47)
[2019-10-11 08:01] LABS: HDL Cholesterol 44.6 mg/dL
[2019-10-11] MEDS: LORazepam TAB(*) 0.5 MG PO PRN (17:52)
[2019-10-11] MEDS: traZODone TAB* 100 MG PO PRN (20:46)
--- NOTE | 2019-10-11 23:17 | PN ---
Subjective - Subjective Date of Service: 10/11/19 Service Type: 33431 Hosp care 35 min high complexity Subjective: Yuki is informed today that she will not be going back to Dr. Cabrera at the pain clinic due the perception that she was keeping information from him and the facts that she has tested positive for cocaine and negative for methadone as well as having missed a required urine sample, stating she forgot. More details can be found in Dr. Cabrera's note of 10/09/2019. Yuki states she understands this dismissal from the pain clinic but is also mildly incredulous as she states she's been being honest with him. She then gets agitated and frustrated because she only has enough methadone until Tuesday and no one to prescribe it for her. She states she does not want to become sick from withdrawal from methadone, comparing it to " warmed up." I contacted Dr. Cabrera who stated he will write for two weeks. He suggests that she contact Jessica Hay who prescribes from [facility] and does prescribe methadone. Dr. Cabrera also suggested that she go back to [facility], which has more local prescribers. She states she gets sick when she takes that. Objective - General Observations Appearance: Neat Appears Stated Age: Yes Stature: WNL Posture: Tense Eye Contact: Intense Behavior/Activity: Accelerated - Interaction Observations Attitude Towards Examiner: Cooperative, Demanding, Manipulative Stated Mood: Dysphoric, Irritable Affect: Labile Speech Pattern/Tone: Clear, Appropriate, Normal Volume Thought Process: Coherent, Goal Directed Perception: WNL Thought Content: WNL Hallucination Type: None Delusion Type: None - Cognitive Function Orientation: A&O x 4 Level of Consciousness: Awake, Alert, Appropriate Cognition: WNL Estimated Intelligence: Normal Insight: Mostly Blames Others for Problems Judgment Within Normal Limits: No Ability to Make Reasonable Decisions: Moderately Impaired - Medication Compliance Cooperative with Inpatient Medication Regimen: Yes - Group Participation Participates in Group Activities: Partial Assessment - Assessment Merits Inpatient Hospitalization: For Immediate Safety Clinical Impression: Peyton is a 49-year-old single white woman who is diagnosed with polysubstance use disorder who comes to the [facility] following a visit to the ED for chest pains precipitated by crack cocaine use and then states she is feeling suicidal. Plan - Plan Treatment Plan: Name: PEYTON MUSTAFAADD Birthdate: 1970 [id number] Yuki agreed to go to every group. We talked about discharge for tomorrow, which was upsetting to Yuki. She brought up past events that she said were difficult for her and then put them in the context of how hard it is for her now to be discharged when she feels like she will be lonely and at loose ends at home. It was suggested that she could go out to get a meal at [employer] or attend an AA meeting, which she had reflected had been helpful in the past. Medications: Current Medications Acetaminophen (Tylenol Tab*) 650 mg PO Q4H PRN PRN Reason: for pain; or Temp >101 F Al Hydrox/Mg Hydrox/Simethicone (Maalox Plus*) 30 ml PO Q4H PRN PRN Reason: INDIGESTION Cetirizine HCl (Zyrtec*) 10 mg PO DAILY [facility] Last Admin: 10/11/19 07:40 Dose: 10 mg Fluoxetine HCl (Prozac Cap*) 40 mg PO DAILY [facility] Last Admin: 10/11/19 07:40 Dose: 40 mg Lorazepam (Ativan Tab(*)) 0.5 mg PO DAILY PRN PRN Reason: ANXIETY Last Admin: 10/11/19 17:52 Dose: 0.5 mg Methadone HCl (Dolophine Tab*) 20 mg PO 0900,1400,2100 [facility] Last Admin: 10/11/19 20:45 Dose: 20 mg Montelukast Sodium (Singulair Tab*) 10 mg PO DAILY [facility] Last Admin: 10/11/19 07:41 Dose: 10 mg Nicotine Polacrilex (Nicotine Gum*) 2 mg PO Q2H PRN PRN Reason: CRAVING Last Admin: 10/11/19 20:47 Dose: 2 mg Pantoprazole Sodium (Protonix Tab*) 40 mg PO DAILY [facility] Last Admin: 10/11/19 07:41 Dose: 40 mg Pregabalin (Lyrica 25 Mg Cap (*)) 75 mg PO TID [facility] Last Admin: 10/11/19 21:26 Dose: 75 mg Trazodone HCl (Desyrel Tab*) 300 mg PO BEDTIME PRN PRN Reason: INSOMNIA Last Admin: 10/11/19 20:46 Dose: 300 mg - Discharge Plan Discharge Plan: Outpatient Follow Up
[2019-10-12] MEDS: Pregabalin 25 mg CAP (*) PO SCH ×2 (08:20→13:31)
[2019-10-12] MEDS: FLUoxetine CAP* 20 MG PO SCH (08:20)
[2019-10-12] MEDS: Methadone TAB* 10 MG PO SCH ×2 (08:20→13:32)
[2019-10-12] MEDS: Pantoprazole TAB * 40 MG TAB PO SCH (08:21)
[2019-10-12] MEDS: Cetirizine* 10 MG TAB PO SCH (08:21)
[2019-10-12] MEDS: Montelukast Sodium TAB* 10 MG PO SCH (08:21)
[2019-10-12] MEDS: Nicotine* 2MG (FRUIT FLAVOR) GUM PO PRN ×3 (08:23→15:19)
[2019-10-12 09:15] VITALS: BP 98/65
[2019-10-12] MEDS: LORazepam TAB(*) 0.5 MG PO PRN (15:19)
--- NOTE | 2019-10-16 02:42 | DS ---
DISCHARGE SUMMARY: DATE OF ADMISSION: 10/09/19 DATE OF DISCHARGE: 10/12/19 PROVIDER: Samaria Salinas NP in Psychiatry. SUPERVISING PHYSICIAN: Dr. Prem Lee.* (DICTATED BY SAMARIA SALINAS NP) DIAGNOSIS: Polysubstance use disorder. CONDITION AT THE TIME OF DISCHARGE: Yuki is improved. She is psychiatrically cleared and stable. She participated in groups and was very social with peers. She is reluctantly agreeable to discharge. She has done well here psychiatrically. She tolerated the restart of Prozac. She is being referred to [facility]. MENTAL STATUS EXAM: At the time of discharge, Yuki is calm, cooperative, and makes good eye contact. She requires some explanations about why she is leaving on the day that she is leaving, but is eventually agreeable and pleasant. She is alert and oriented x4. Her grooming is adequate. Her speech pace is normal. Her thought processes are logical. She is not psychotic or delusional. She denies AH, VH, SI, and HI. Her insight and judgment are fair. She is willing to follow up and she is urged to see a therapist. DISCHARGE INSTRUCTIONS TO THE PATIENT: A. Medications: 1. Zyrtec 10 mg daily. 2. Prozac 40 mg daily. 3. Lorazepam 0.5 mg daily p.r.n. anxiety. 4. Methadone 20 mg t.i.d. 5. Singulair 10 mg daily. 6. Nicotine gum 2 mg q.2 hours p.r.n. nicotine craving. 7. Protonix 40 mg. 8. Lyrica 75 mg t.i.d. 9. Trazodone 300 mg at bedtime. B. Diet is regular. C. Activities as tolerated. She is a smoker but has declined the [employer] Quit[facility] at this time. If she desires to access this free service in the future, she can contact the Quitline toll free at [phone]. There are no studies pending at the time of discharge. D. Followup care: She is referred to [facility], which meets 2 stays at 7:30 p.m. on [address] [facility]. She is referred to [facility], she can call Jadyn at [phone] for her phone screening in order to be considered for methadone treatment. She is referred to Dr. Sada Rosenberg, who is a doctor at [facility]. She is referred to [facility] on 10/15/19 at [address] Curiel. She is also referred to [facility] on 10/17/19 at 9:45 a.m. with Jaqueline Lawler Disposition: Yuki is being discharged to her home in [place]. F. Substance abuse followup: She is being referred to [facility] and to [facility]. She is already prescribed methadone for pain and this may be also interpreted as a way to stay sober from opiates. HOSPITAL COURSE: Part A: Chief complaint: "I am an addict, in and out of recovery." Peyton states she relapsed on crack cocaine, which caused chest pain resulting in an ED visit and then, with her assertion that she had suicidal thoughts, her subsequent admission to the [facility]. The patient is a 49-year-old single white homosexual woman with a history of significant substance abuse, overdoses and several inpatient admissions, now 11th for psychiatric reasons as well as medical reasons. Yuki comes to the hospital with chest pain after using crack cocaine. Upon learning she is not having a cardiac event, she states she is having suicidal ideation and depressed mood. This series of events was precipitated by not taking Prozac since July, feeling lonely and isolated in her trailer home in [place], relapsing on crack cocaine and a leg amputation in January 2019. She feels guilty about potentially hurting her parents if she suicides. She tends to have low energy and anhedonia. Her suicidal ideation is passive, but present. Part B: Psychiatric treatment was rendered. Yuki was admitted to the adult behavioral health unit and placed on 15-minute checks for safety. Yuki did well on the unit and went to many groups as that was the understanding that she would be discharged if she did not go to groups any longer. She interacted with her peers very well. There was a concern that Yuki would be misusing the hospital stay, as she gets lonely at home and becomes sad and desperate and then comes to the unit and find it to be very supportive and helpful to her mood ; although, she appears to be improved, she asserts she remains depressed and that she cannot go home. With this understanding, however, she is given the opportunity to go to all groups and stay admitted until Tuesday or to stop going to groups and be discharged the same day. We restarted Prozac 40 mg, which Yuki states as extremely helpful to her in the past. She believes that she stopped taking it in July because she was doing so well. Interestingly, she omitted the fact that she stopped taking it in July and simply said that she stopped taking it. There is a pattern of evasive conversation and speech with Yuki when she is talking with us on the unit. Because Yuki has done so well on Prozac in the past, we did not feel like it was requirement to keep her long to see her improvement. In fact, she improved significantly from admission, enjoying conversations with her roommate, coaxing others into conversations that were enjoyable for every one. She was noted to be a kind of supporter and leader on the unit, which has caused problems in the past because she tends to staff split and also caused treatment to be quite difficult to administer due to her evasive nature. We did not meet with her family. I phoned Dr. Supa Cabrera, who indicated to me that Yuki had been discharged from the pain clinic due to substance use and nonadherence to the requirements of the pain clinic, such as providing a urine sample. Apparently, she did not do that in June stating that she forgot and could not get to the lab. The progress note from Dr. Cabrera during her stay indicated that she would have been discharged from the pain clinic even if she had not relapsed on cocaine. Yuki was understanding but also became quite frantic when she realized that she would not be getting the methadone that she feels like she requires. We did discuss with her that she has the opportunity to go to [facility] and visit with Jessica Green who is a local prescriber of methadone. Dr. Cabrera agreed to give Yuki a 2-week supply of methadone to carry her over. We wish Yuki well and hope that she continues to enjoy support from people she knows in the outpatient setting. We also wish her well in maintaining sobriety. SAMARIA SALINAS, PEPE [id number]/[facility] #: [id number] [facility]
== END 2019-10-12 16:00 | disposition home or self-care (01) | DRG 897 ==
LOC: ED 08:42 → BSU 13:02
PROVIDERS: ADMIT Psychiatry & Neurology Psychiatry; ATTEND Psychiatry & Neurology Psychiatry
DX: F14.10 Cocaine abuse, uncomplicated (principal); R45.851 Suicidal ideations; J45.909 Unspecified asthma, uncomplicated; J42 Unspecified chronic bronchitis; K21.9 Gastro-esophageal reflux disease without esophagitis; F41.9 Anxiety disorder, unspecified; F90.9 Attention-deficit hyperactivity disorder, unspecified type; F32.9 Major depressive disorder, single episode, unspecified; Z96.651 Presence of right artificial knee joint; F17.210 Nicotine dependence, cigarettes, uncomplicated; F43.10 Post-traumatic stress disorder, unspecified; F60.89 Other specific personality disorders; M19.90 Unspecified osteoarthritis, unspecified site; Z89.511 Acquired absence of right leg below knee; Z88.6 Allergy status to analgesic agent; Z88.8 Allergy status to other drugs, medicaments and biological substances
CPT/HCPCS: 36415; 71045; 80053; 80061; 80320; 83036; 84484; 85025; 93005; 99222; 99233; 99238; 99284; A9270-GY; G0480

== ENCOUNTER 2020-11-07 06:17 | Observation (INO) ==
[2020-11-07 08:06] LABS: ABS Basophils 0.1 10^3/ul (0-0.2); ABS Lymphocytes 1.2 10^3/ul (1.0-4.8); ABS Monocytes 0.8 10^3/ul (0-0.8); ABS Neutrophils 12.2 10^3/ul (1.5-7.7); Eosinophil % 0.2 %; Hematocrit 36 % (35-47); Hemoglobin 12.1 g/dL (12.0-16.0); Lymphocyte % 8.6 %; Mean Corpuscular HGB Conc 34 g/dL (31-36); Mean Corpuscular Hemoglobin 28 pg (27-31); Mean Corpuscular Volume 84 fL (80-97); Mean Platelet Volume 8.5 fL (7.4-10.4); Platelet Count 223 10^3/uL (150-450); Red Blood Count 4.27 10^6 /uL (3.70-4.87); Red Cell Distribution Width 15 % (10-15); White Blood Count 14.3 10^3/uL (3.5-10.8)
[2020-11-07 08:27] LABS: ALT 53 U/L (7-52); AST 86 U/L (13-39); Albumin 3.9 g/dL (3.2-5.2); Albumin/Globulin Ratio 1.5 (1-3); Alkaline Phosphatase 189 U/L (34-104); Anion Gap 8 mmol/L (2-11); BUN/Creatinine Ratio 19.4 (8-20); Blood Urea Nitrogen 12 mg/dL (6-24); CO2 Carbon Dioxide 24 mmol/L (22-32); Calcium 8.2 mg/dL (8.6-10.3); Chloride 101 mmol/L (101-111); EGFR African American 124.3 (>60); EGFR Non-African American 102.7 (>60); Globulin 2.6 g/dL (2-4); Glucose 92 mg/dL (70-100); Potassium 3.3 mmol/L (3.5-5.0); Sodium 133 mmol/L (135-145); Total Protein 6.5 g/dL (6.4-8.9)
[2020-11-07 09:00] LABS: Acetaminophen < 15 mcg/mL; Alcohol, S < 10 mg/dL (<10); Salicylate < 2.50 mg/dL (<30)
[2020-11-07 09:14] LABS: TSH Ultra Thyroid Stim Horm 0.54 mcIU/mL (0.34-5.60)
[2020-11-07] MEDS ORDERED: Magnesium Sulfate 2 gm BAG 2 GM/50 ML BAG IVPB ONE (09:40)
[2020-11-07] MEDS ORDERED: Potassium Chlor 20 meq TAB.ER PO ONE (09:40)
[2020-11-07] MEDS ORDERED: Lactated Ringers 1000 ml BAG 1,000 ML IV ONE (10:40)
[2020-11-07 12:00] LABS: Magnesium 2.1 mg/dL (1.9-2.7)
[2020-11-08] MEDS ORDERED: Nicotine GUM 4MG FRUIT FLAVOR PO PRN (02:38)
[2020-11-08] MEDS ORDERED: NS 0.9% 1000 ml BAG 1,000 ML IV ONE (03:13)
[2020-11-08 03:46] LABS: ABS Basophils 0.1 10^3/ul (0-0.2); ABS Eosinophils 0.1 10^3/ul (0-0.6); ABS Lymphocytes 2.1 10^3/ul (1.0-4.8); ABS Monocytes 0.8 10^3/ul (0-0.8); ABS Neutrophils 12.1 10^3/ul (1.5-7.7); Eosinophil % 0.5 %; Hematocrit 33 % (35-47); Hemoglobin 10.9 g/dL (12.0-16.0); Lymphocyte % 13.7 %; Mean Corpuscular HGB Conc 33 g/dL (31-36); Mean Corpuscular Hemoglobin 28 pg (27-31); Mean Corpuscular Volume 85 fL (80-97); Mean Platelet Volume 8.8 fL (7.4-10.4); Platelet Count 175 10^3/uL (150-450); Red Blood Count 3.87 10^6 /uL (3.70-4.87); Red Cell Distribution Width 16 % (10-15); White Blood Count 15.1 10^3/uL (3.5-10.8)
[2020-11-08 04:00] LABS: Albumin 3.5 g/dL (3.2-5.2); Albumin/Globulin Ratio 1.5 (1-3); BUN/Creatinine Ratio 16.1 (8-20); Calcium 7.9 mg/dL (8.6-10.3); EGFR African American 124.3 (>60); EGFR Non-African American 102.7 (>60); Globulin 2.3 g/dL (2-4); Potassium 3.3 mmol/L (3.5-5.0); Total Bilirubin 0.6 mg/dL (0.2-1.0); Total Protein 5.8 g/dL (6.4-8.9)
[2020-11-08] MEDS ORDERED: NS 0.9% 1000 ml BAG 1,000 ML IV SCH (04:45)
[2020-11-08 11:18] VITALS: BP 103/58
== END 2020-11-08 16:00 | disposition home or self-care (01) ==
LOC: EDBD → ED 06:17 → EDUNIT# 06:17 → MEDTELE 06:17
PROVIDERS: ADMIT Internal Medicine; ATTEND Student in an Organized Health Care Education/Training Program